=== PATIENT | male | born 1940 | race Caucasian/White ===

== ENCOUNTER 2017-06-27 14:15 | Outpatient (RCR) | payer MEDICARE, SELFPAY ==
[2017-05-29 01:27] VITALS: BP 136/78; PULSE 64; RESP 16; TEMP 36.2
[2017-05-30 13:37] VITALS: BP 132/73; PULSE 76; RESP 18; TEMP 36.6
--- NOTE | 2017-05-30 14:39 | PCM.WC.PN ---
(1) Non-pressure chronic ulcer of right ankle with fat layer exposed Status: Acute Current Visit: Yes Code(s): L97.312 - Non-pressure chronic ulcer of right ankle with fat layer exposed (2) Non-pressure chronic ulcer of left ankle with fat layer exposed Status: Acute Current Visit: Yes Code(s): L97.322 - Non-pressure chronic ulcer of left ankle with fat layer exposed (3) Venous insufficiency (chronic) (peripheral) Status: Chronic Current Visit: Yes Comment: I87.2 (4) Localized edema Status: Acute Current Visit: Yes Code(s): R60.0 - Localized edema Type of Wound Date of Service: 05/30/17 Chief Complaint: Left leg ulcer History of Wound: This 76-year-old male presents [facility] to [facility] for recurrent venous leg ulcerations of the left and right ankles. 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 Patient is also known to have chronic leg edema. He is drinking a protein supplementation drink daily still at this time. He denies fever, chills, nausea, vomiting, leg pain during the day. He had his venous doppler with reflux in the past, but not recently. He denies leg redness or drainage. 05/02--Improved. Vascular testing scheduled for next week. Tolerating 3M 2-layer coban wraps and hydrofera blue well. Pain improved. Denies N/V/F/C. Denies redness, pus, malodor, warmth. 05/09--Improved. Vascular testing done and reviewed. Tolerating 3M 2-layer coban wraps and hydrofera blue well. Pain improved. Denies N/V/F/C. Denies redness, pus, malodor, warmth. 05/16--Improved. Vascular testing done and reviewed. Tolerating 3M 2-layer coban wraps and hydrofera blue well. Pain improved. Denies N/V/F/C. Denies redness, pus, malodor, warmth. 05/30/17--Improved. Tolerating 3M 2-layer coban wraps and hydrofera blue well. Almost no drainge--hydrofera blue is sticking to the ulcers, so we will add adaptic first. Pain improved. Denies N/V/F/C. Denies redness, pus, malodor, warmth. Progress of Wound: Improved. Venous duplex reveals vein incompetence bilaterally--pt referred to vascular surgery. - Physical Exam Vital Signs Temp Pulse Resp BP 97.9 F 76 18 132/73 H 05/30/17 13:37 05/30/17 13:37 05/30/17 13:37 05/30/17 13:37 General: Alert, Oriented x3, Cooperative, No apparent distress Skin: Ulcer/ Wound - R medial and lateral ankle, L medial ankle with no erythema, no malodor, no pus, no calor, no TTP. No clinical signs of acute bacterial infection noted. See nurse's wound assessment. R medial ankle ulcer now 2 smaller ulcers. Wound Measurements and Assessment - Nurse 1 - General Ulcer Measurement Start: 05/30/17 13:37 Freq: Status: Active Protocol: Activity Type Activity Date Activity User E-Sign Co-Sign Detail Recorded Client Recorded Date Recorded By Document 05/30/17 13:37 DL [id number] 05/30/17 13:51 DL 05/30/17 13:37 Wound Center Nurse 1 [Ulcer Assessment Protocol: WC.WD.LOC] #11 R Lat ankle -Current Size (cm) - Length 0.8 -Current Size (cm) - Width 0.8 -Current Size (cm) - Depth 0.2 -Total Square Cm 0.64 -Photo Taken No -Exudate Amt Small (1-33%) -Exudate Type Serosanguineous -Wound Margin Distinct, Outline Attached -Granulation Amt Small (1-33%) -Granulation Quality [place] -Necrosis Amt Small (1-33%) -Necrotic Tissue Type Adherent Slough -Structure Exposed N/A -Texture (Nikia-wound Skin Appearance) No Abnormality -Moisture (Nikia-wound Skin Appearance Dry/Scaly ) -Color (Nikia-wound Skin Appearance) Hemosiderin Staining -Temperature (Nikia-wound Skin No Abnormality Appearance) (Pt Warm) -Ulcer Cleansing Wound Cleanser -Foul Odor after Cleansing No -Anesthetic Used 4% Lidocaine Solution #10 R Med Ankle -Current Size (cm) - Length 3.3 -Current Size (cm) - Width 3.3 -Current Size (cm) - Depth 0.1 -Total Square Cm 10.89 -Photo Taken No -Exudate Amt Small (1-33%) -Exudate Type Serosanguineous -Wound Margin Distinct, Outline Attached -Granulation Amt None Present (0 %) -Necrosis Amt Large (67-100%) -Necrotic Tissue Type Adherent Slough -Structure Exposed N/A -Texture (Nikia-wound Skin Appearance) Scarring -Moisture (Nikia-wound Skin Appearance Dry/Scaly ) -Color (Nikia-wound Skin Appearance) Hemosiderin Staining -Temperature (Nikia-wound Skin No Abnormality Appearance) (Pt Warm) -Ulcer Cleansing Wound Cleanser -Foul Odor after Cleansing No -Anesthetic Used 4% Lidocaine Solution #9 L Med Ankle -Current Size (cm) - Length 7.7 -Current Size (cm) - Width 4 -Current Size (cm) - Depth 0.1 -Total Square Cm 30.8 -Photo Taken No -Exudate Amt Small (1-33%) -Exudate Type Serosanguineous -Wound Margin Distinct, Outline Attached -Granulation Amt Medium (34-66%) -Granulation Quality Red -Necrosis Amt Medium (34-66%) -Necrotic Tissue Type Adherent Slough -Structure Exposed N/A -Texture (Nikia-wound Skin Appearance) Scarring -Moisture (Nikia-wound Skin Appearance Dry/Scaly ) -Color (Nikia-wound Skin Appearance) Hemosiderin Staining -Temperature (Nikia-wound Skin No Abnormality Appearance) (Pt Warm) -Ulcer Cleansing Wound Cleanser -Foul Odor after Cleansing No -Anesthetic Used 4% Lidocaine Solution [Edema Assessment] -Right Calf (cm) 35.2 -Right Ankle (cm) 21 -Left Calf (cm) 33 -Left Ankle (cm) 21.2 WC - Nurse 2 - General Ulcer CM Notes Start: 05/30/17 13:37 Freq: Status: Active Protocol: Activity Type Activity Date Activity User E-Sign Co-Sign Detail Recorded Client Recorded Date Recorded By Document 05/30/17 14:11 MW [id number] 05/30/17 14:20 MW 05/30/17 14:11 Wound Center Nurse 2 [Procedure/Treatment] #12 right anterior ankle -Time 14:19 -Correct Patient Yes -Correct Side, Site, Position Yes -Correct Procedure Yes -Procedure Performed Yes -Type of Procedure Debridement -Clinical Debridement Subcutaneous -Post Debridement Size (cm) - Length 2.0 -Post Debridement Size (cm) - Width 0.6 -Post Debridement Size (cm) - Depth 0.1 -Total Square Cm 1.20 -Wound/Ulcer Outcome Not Healed -Ulcer Cleansing Rinsed/ Irrigated with Saline -Foul Odor after Cleansing No -Bioengineered Tissue No -Cetacaine [place] No -Bleeding Controlled with Pressure -Treatment Response Procedure Tolerated Well #11 R Lat ankle -Time 14:16 -Correct Patient Yes -Correct Side, Site, Position Yes -Correct Procedure Yes -Procedure Performed Yes -Type of Procedure Debridement -Clinical Debridement Subcutaneous -Post Debridement Size (cm) - Length 0.5 -Post Debridement Size (cm) - Width 1.0 -Post Debridement Size (cm) - Depth 0.2 -Total Square Cm 0.50 -Wound/Ulcer Outcome Not Healed -Ulcer Cleansing Rinsed/ Irrigated with Saline -Foul Odor after Cleansing No -Bioengineered Tissue No -Cetacaine [place] No -Bleeding Controlled with Pressure -Treatment Response Procedure Tolerated Well #10 R [facility] Ankle -Time 14:16 -Correct Patient Yes -Correct Side, Site, Position Yes -Correct Procedure Yes -Procedure Performed Yes -Type of Procedure Debridement -Clinical Debridement Subcutaneous -Post Debridement Size (cm) - Length 1.8 -Post Debridement Size (cm) - Width 3.5 -Post Debridement Size (cm) - Depth 0.1 -Total Square Cm 6.30 -Wound/Ulcer Outcome Not Healed -Ulcer Cleansing Rinsed/ Irrigated with Saline -Foul Odor after Cleansing No -Bioengineered Tissue No -Cetacaine [place] No -Bleeding Controlled with Pressure -Treatment Response Procedure Tolerated Well #9 L [facility] Ankle -Time 14:16 -Correct Patient Yes -Correct Side, Site, Position Yes -Correct Procedure Yes -Procedure Performed Yes -Type of Procedure Debridement -Clinical Debridement Subcutaneous -Post Debridement Size (cm) - Length 8.0 -Post Debridement Size (cm) - Width 3.5 -Post Debridement Size (cm) - Depth 0.1 -Total Square Cm 28.00 -Wound/Ulcer Outcome Not Healed -Ulcer Cleansing Rinsed/ Irrigated with Saline -Foul Odor after Cleansing No -Bioengineered Tissue No -Cetacaine [place] No -Bleeding Controlled with Pressure -Treatment Response Procedure Tolerated Well [See Physician Procedure note for Specifics] Pain Scale: 0-10 Numeric [Pain] -Is Patient Pain Free? Yes Debridement Note Post-Debridement Measurements/Treatment WC - Nurse 2 - General Ulcer CM Notes Start: 05/30/17 13:37 Freq: Status: Active Protocol: Activity Type Activity Date Activity User E-Sign Co-Sign Detail Recorded Client Recorded Date Recorded By Document 05/30/17 14:11 MW [id number] 05/30/17 14:20 MW 05/30/17 14:11 Wound Center Nurse 2 #12 right anterior ankle -Time 14:19 -Correct Patient Yes -Correct Side, Site, Position Yes -Correct Procedure Yes -Procedure Performed Yes -Type of Procedure Debridement -Clinical Debridement Subcutaneous -Post Debridement Size (cm) - Length 2.0 -Post Debridement Size (cm) - Width 0.6 -Post Debridement Size (cm) - Depth 0.1 -Total Square Cm 1.20 -Wound/Ulcer Outcome Not Healed -Ulcer Cleansing Rinsed/ Irrigated with Saline -Foul Odor after Cleansing No -Bioengineered Tissue No -Cetacaine [place] No -Bleeding Controlled with Pressure -Treatment Response Procedure Tolerated Well #11 R Lat ankle -Time 14:16 -Correct Patient Yes -Correct Side, Site, Position Yes -Correct Procedure Yes -Procedure Performed Yes -Type of Procedure Debridement -Clinical Debridement Subcutaneous -Post Debridement Size (cm) - Length 0.5 -Post Debridement Size (cm) - Width 1.0 -Post Debridement Size (cm) - Depth 0.2 -Total Square Cm 0.50 -Wound/Ulcer Outcome Not Healed -Ulcer Cleansing Rinsed/ Irrigated with Saline -Foul Odor after Cleansing No -Bioengineered Tissue No -Cetacaine [place] No -Bleeding Controlled with Pressure -Treatment Response Procedure Tolerated Well #10 R Med Ankle -Time 14:16 -Correct Patient Yes -Correct Side, Site, Position Yes -Correct Procedure Yes -Procedure Performed Yes -Type of Procedure Debridement -Clinical Debridement Subcutaneous -Post Debridement Size (cm) - Length 1.8 -Post Debridement Size (cm) - Width 3.5 -Post Debridement Size (cm) - Depth 0.1 -Total Square Cm 6.30 -Wound/Ulcer Outcome Not Healed -Ulcer Cleansing Rinsed/ Irrigated with Saline -Foul Odor after Cleansing No -Bioengineered Tissue No -Cetacaine [place] No -Bleeding Controlled with Pressure -Treatment Response Procedure Tolerated Well #9 L Med Ankle -Time 14:16 -Correct Patient Yes -Correct Side, Site, Position Yes -Correct Procedure Yes -Procedure Performed Yes -Type of Procedure Debridement -Clinical Debridement Subcutaneous -Post Debridement Size (cm) - Length 8.0 -Post Debridement Size (cm) - Width 3.5 -Post Debridement Size (cm) - Depth 0.1 -Total Square Cm 28.00 -Wound/Ulcer Outcome Not Healed -Ulcer Cleansing Rinsed/ Irrigated with Saline -Foul Odor after Cleansing No -Bioengineered Tissue No -Cetacaine [place] No -Bleeding Controlled with Pressure -Treatment Response Procedure Tolerated Well Pain Scale: 0-10 Numeric Is Patient Pain Free? Yes Wound debrided: R lateral ankle Laterality: Right Wound Grade/Stage: Full thickness VLU Type of Debridement: Excisional debridement Anesthesia Used: 4% Lidocaine Solution Depth: Down to and including healthy tissue, in the subcutaneous layer Percentage of wound debrided: 100 Instrument Used: 3mm curette Tissue Removed: fibrous slough Severity: Fat Layer Exposed Amount of bleeding with debridement: Mild Bleeding Controlled with: Pressure, Compression and gauze Patient tolerated procedure well - Additional Wound Wound debrided: R medial ankle x 2 Laterality: Right Wound Grade/Stage: full thickness VLU Type of Debridement: Excisional debridement Anesthesia Used: 4% Lidocaine Solution Depth: Down to and including healthy tissue, in the subcutaneous layer Percentage of wound debrided: 100 Instrument Used: 3mm curette Tissue Removed: fibrous slough Severity: Fat Layer Exposed Amount of bleeding with debridement: Mild Bleeding Controlled with: Pressure, Compression and gauze Patient tolerated procedure: Patient tolerated procedure well - Additional Wound Wound debrided: L medial ankle Laterality: Left Wound Grade/Stage: Full thickness VLU Type of Debridement: Excisional debridement Anesthesia Used: 4% Lidocaine Solution Depth: Down to and including healthy tissue, in the subcutaneous layer Percentage of wound debrided: 100 Instrument Used: 3mm curette Tissue Removed: fibrous slough Severity: Fat Layer Exposed Amount of bleeding with debridement: Mild Bleeding Controlled with: Pressure, Compression and gauze Patient tolerated procedure: Patient tolerated procedure well Assessment/Plan Active Problems Venous insufficiency (chronic) (peripheral) (Chronic) I87.2 Non-pressure chronic ulcer of right ankle with fat layer exposed (Acute) Non-pressure chronic ulcer of left ankle with fat layer exposed (Acute) Localized edema (Acute) Assessment: See diagnoses Plan: SQ/excisional debridment b/l ankle ulcers as above >30 sq cm. Screening LIZ in clinic next week (not done again today). Referral to vascular surgery based on venous duplex results. Pt does well with 3M 2-layer coban wraps, re-apply. Cont hydrofera blue, add adaptic to wound bed prior to application of hydrofera blue. Monitor for redness, pus, malodor, warmth, pain, swelling as well as for N/V/F/C and go to the ED with these. Return in 1 week with me, call with questions.
--- NOTE | 2017-05-30 14:44 | PN.PCM_ITS ---
(1) Non-pressure chronic ulcer of right ankle with fat layer exposed Status: Acute Current Visit: Yes Code(s): L97.312 - Non-pressure chronic ulcer of right ankle with fat layer exposed (2) Non-pressure chronic ulcer of left ankle with fat layer exposed Status: Acute Current Visit: Yes Code(s): L97.322 - Non-pressure chronic ulcer of left ankle with fat layer exposed (3) Venous insufficiency (chronic) (peripheral) Status: Chronic Current Visit: Yes Comment: I87.2 (4) Localized edema Status: Acute Current Visit: Yes Code(s): R60.0 - Localized edema Type of Wound Date of Service: 05/30/17 Chief Complaint: Left leg ulcer History of Wound: This 76-year-old male presents [facility] for recurrent venous leg ulcerations of the left and right ankles. 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 Patient is also known to have chronic leg edema. He is drinking a protein supplementation drink daily still at this time. He denies fever, chills, nausea, vomiting, leg pain during the day. He had his venous doppler with reflux in the past, but not recently. He denies leg redness or drainage. 05/02--Improved. Vascular testing scheduled for next week. Tolerating 3M 2-layer coban wraps and hydrofera blue well. Pain improved. Denies N/V/F/C. Denies redness, pus, malodor, warmth. 05/09--Improved. Vascular testing done and reviewed. Tolerating 3M 2-layer coban wraps and hydrofera blue well. Pain improved. Denies N/V/F/C. Denies redness, pus, malodor, warmth. 05/16--Improved. Vascular testing done and reviewed. Tolerating 3M 2-layer coban wraps and hydrofera blue well. Pain improved. Denies N/V/F/C. Denies redness, pus, malodor, warmth. 05/30/17--Improved. Tolerating 3M 2-layer coban wraps and hydrofera blue well. Almost no drainge-- hydrofera blue is sticking to the ulcers, so we will add adaptic first. Pain improved. Denies N/V/F/C. Denies redness, pus, malodor, warmth. Progress of Wound: Improved. Venous duplex reveals vein incompetence bilaterally--pt referred to vascular surgery. - Physical Exam Vital Signs Temp Pulse Resp BP 97.9 F 76 18 132/73 H 05/30/17 13:37 05/30/17 13:37 05/30/17 13:37 05/30/17 13:37 General: Alert, Oriented x3, Cooperative, No apparent distress Skin: Ulcer/ Wound - R medial and lateral ankle, L medial ankle with no erythema , no malodor, no pus, no calor, no TTP. No clinical signs of acute bacterial infection noted. See nurse's wound assessment. R medial ankle ulcer now 2 smaller ulcers. Wound Measurements and Assessment - Nurse 1 - General Ulcer Measurement Start: 05/30/17 13:37 Freq: Status: Active Protocol: Activity Type Activity Date Activity User E-Sign Co-Sign Detail Recorded Client Recorded Date Recorded By Document 05/30/17 13:37 DL [id number] 05/30/17 13:51 DL 05/30/17 13:37 Wound Center Nurse 1 [Ulcer Assessment Protocol: WC.WD.LOC] #11 R Lat ankle -Current Size (cm) - Length 0.8 -Current Size (cm) - Width 0.8 -Current Size (cm) - Depth 0.2 -Total Square Cm 0.64 -Photo Taken No -Exudate Amt Small (1-33%) -Exudate Type Serosanguineous -Wound Margin Distinct, Outline Attached -Granulation Amt Small (1-33%) -Granulation Quality [place] -Necrosis Amt Small (1-33%) -Necrotic Tissue Type Adherent Slough -Structure Exposed N/A -Texture (Nikia-wound Skin Appearance) No Abnormality -Moisture (Nikia-wound Skin Appearance Dry/Scaly ) -Color (Nikia-wound Skin Appearance) Hemosiderin Staining -Temperature (Nikia-wound Skin No Abnormality Appearance) (Pt Warm) -Ulcer Cleansing Wound Cleanser -Foul Odor after Cleansing No -Anesthetic Used 4% Lidocaine Solution #10 R Med Ankle -Current Size (cm) - Length 3.3 -Current Size (cm) - Width 3.3 -Current Size (cm) - Depth 0.1 -Total Square Cm 10.89 -Photo Taken No -Exudate Amt Small (1-33%) -Exudate Type Serosanguineous -Wound Margin Distinct, Outline Attached -Granulation Amt None Present (0 %) -Necrosis Amt Large (67-100%) -Necrotic Tissue Type Adherent Slough -Structure Exposed N/A -Texture (Nikia-wound Skin Appearance) Scarring -Moisture (Nikia-wound Skin Appearance Dry/Scaly ) -Color (Nikia-wound Skin Appearance) Hemosiderin Staining -Temperature (Nikia-wound Skin No Abnormality Appearance) (Pt Warm) -Ulcer Cleansing Wound Cleanser -Foul Odor after Cleansing No -Anesthetic Used 4% Lidocaine Solution #9 L Med Ankle -Current Size (cm) - Length 7.7 -Current Size (cm) - Width 4 -Current Size (cm) - Depth 0.1 -Total Square Cm 30.8 -Photo Taken No -Exudate Amt Small (1-33%) -Exudate Type Serosanguineous -Wound Margin Distinct, Outline Attached -Granulation Amt Medium (34-66%) -Granulation Quality Red -Necrosis Amt Medium (34-66%) -Necrotic Tissue Type Adherent Slough -Structure Exposed N/A -Texture (Nikia-wound Skin Appearance) Scarring -Moisture (Nikia-wound Skin Appearance Dry/Scaly ) -Color (Nikia-wound Skin Appearance) Hemosiderin Staining -Temperature (Nikia-wound Skin No Abnormality Appearance) (Pt Warm) -Ulcer Cleansing Wound Cleanser -Foul Odor after Cleansing No -Anesthetic Used 4% Lidocaine Solution [Edema Assessment] -Right Calf (cm) 35.2 -Right Ankle (cm) 21 -Left Calf (cm) 33 -Left Ankle (cm) 21.2 WC - Nurse 2 - General Ulcer CM Notes Start: 05/30/17 13:37 Freq: Status: Active Protocol: Activity Type Activity Date Activity User E-Sign Co-Sign Detail Recorded Client Recorded Date Recorded By Document 05/30/17 14:11 MW [id number] 05/30/17 14:20 MW 05/30/17 14:11 Wound Center Nurse 2 [Procedure/Treatment] #12 right anterior ankle -Time 14:19 -Correct Patient Yes -Correct Side, Site, Position Yes -Correct Procedure Yes -Procedure Performed Yes -Type of Procedure Debridement -Clinical Debridement Subcutaneous -Post Debridement Size (cm) - Length 2.0 -Post Debridement Size (cm) - Width 0.6 -Post Debridement Size (cm) - Depth 0.1 -Total Square Cm 1.20 -Wound/Ulcer Outcome Not Healed -Ulcer Cleansing Rinsed/ Irrigated with Saline -Foul Odor after Cleansing No -Bioengineered Tissue No -Cetacaine [place] No -Bleeding Controlled with Pressure -Treatment Response Procedure Tolerated Well #11 R Lat ankle -Time 14:16 -Correct Patient Yes -Correct Side, Site, Position Yes -Correct Procedure Yes -Procedure Performed Yes -Type of Procedure Debridement -Clinical Debridement Subcutaneous -Post Debridement Size (cm) - Length 0.5 -Post Debridement Size (cm) - Width 1.0 -Post Debridement Size (cm) - Depth 0.2 -Total Square Cm 0.50 -Wound/Ulcer Outcome Not Healed -Ulcer Cleansing Rinsed/ Irrigated with Saline -Foul Odor after Cleansing No -Bioengineered Tissue No -Cetacaine [place] No -Bleeding Controlled with Pressure -Treatment Response Procedure Tolerated Well #[address] [facility] Ankle -Time 14:16 -Correct Patient Yes -Correct Side, Site, Position Yes -Correct Procedure Yes -Procedure Performed Yes -Type of Procedure Debridement -Clinical Debridement Subcutaneous -Post Debridement Size (cm) - Length 1.8 -Post Debridement Size (cm) - Width 3.5 -Post Debridement Size (cm) - Depth 0.1 -Total Square Cm 6.30 -Wound/Ulcer Outcome Not Healed -Ulcer Cleansing Rinsed/ Irrigated with Saline -Foul Odor after Cleansing No -Bioengineered Tissue No -Cetacaine We[place] No -Bleeding Controlled with Pressure -Treatment Response Procedure Tolerated Well #[address] [facility] Ankle -Time 14:16 -Correct Patient Yes -Correct Side, Site, Position Yes -Correct Procedure Yes -Procedure Performed Yes -Type of Procedure Debridement -Clinical Debridement Subcutaneous -Post Debridement Size (cm) - Length 8.0 -Post Debridement Size (cm) - Width 3.5 -Post Debridement Size (cm) - Depth 0.1 -Total Square Cm 28.00 -Wound/Ulcer Outcome Not Healed -Ulcer Cleansing Rinsed/ Irrigated with Saline -Foul Odor after Cleansing No -Bioengineered Tissue No -Cetacaine We[place] No -Bleeding Controlled with Pressure -Treatment Response Procedure Tolerated Well [See Physician Procedure note for Specifics] Pain Scale: 0-10 Numeric [Pain] -Is Patient Pain Free? Yes Debridement Note Post-Debridement Measurements/Treatment WC - Nurse 2 - General Ulcer CM Notes Start: 05/30/17 13:37 Freq: Status: Active Protocol: Activity Type Activity Date Activity User E-Sign Co-Sign Detail Recorded Client Recorded Date Recorded By Document 05/30/17 14:11 MW [id number] 05/30/17 14:20 MW 05/30/17 14:11 Wound Center Nurse 2 #12 right anterior ankle -Time 14:19 -Correct Patient Yes -Correct Side, Site, Position Yes -Correct Procedure Yes -Procedure Performed Yes -Type of Procedure Debridement -Clinical Debridement Subcutaneous -Post Debridement Size (cm) - Length 2.0 -Post Debridement Size (cm) - Width 0.6 -Post Debridement Size (cm) - Depth 0.1 -Total Square Cm 1.20 -Wound/Ulcer Outcome Not Healed -Ulcer Cleansing Rinsed/ Irrigated with Saline -Foul Odor after Cleansing No -Bioengineered Tissue No -Cetacaine We[place] No -Bleeding Controlled with Pressure -Treatment Response Procedure Tolerated Well #11 R Lat ankle -Time 14:16 -Correct Patient Yes -Correct Side, Site, Position Yes -Correct Procedure Yes -Procedure Performed Yes -Type of Procedure Debridement -Clinical Debridement Subcutaneous -Post Debridement Size (cm) - Length 0.5 -Post Debridement Size (cm) - Width 1.0 -Post Debridement Size (cm) - Depth 0.2 -Total Square Cm 0.50 -Wound/Ulcer Outcome Not Healed -Ulcer Cleansing Rinsed/ Irrigated with Saline -Foul Odor after Cleansing No -Bioengineered Tissue No -Cetacaine Weott No -Bleeding Controlled with Pressure -Treatment Response Procedure Tolerated Well #10 R Med Ankle -Time 14:16 -Correct Patient Yes -Correct Side, Site, Position Yes -Correct Procedure Yes -Procedure Performed Yes -Type of Procedure Debridement -Clinical Debridement Subcutaneous -Post Debridement Size (cm) - Length 1.8 -Post Debridement Size (cm) - Width 3.5 -Post Debridement Size (cm) - Depth 0.1 -Total Square Cm 6.30 -Wound/Ulcer Outcome Not Healed -Ulcer Cleansing Rinsed/ Irrigated with Saline -Foul Odor after Cleansing No -Bioengineered Tissue No -Cetacaine Weott No -Bleeding Controlled with Pressure -Treatment Response Procedure Tolerated Well #9 L Med Ankle -Time 14:16 -Correct Patient Yes -Correct Side, Site, Position Yes -Correct Procedure Yes -Procedure Performed Yes -Type of Procedure Debridement -Clinical Debridement Subcutaneous -Post Debridement Size (cm) - Length 8.0 -Post Debridement Size (cm) - Width 3.5 -Post Debridement Size (cm) - Depth 0.1 -Total Square Cm 28.00 -Wound/Ulcer Outcome Not Healed -Ulcer Cleansing Rinsed/ Irrigated with Saline -Foul Odor after Cleansing No -Bioengineered Tissue No -Cetacaine Weott No -Bleeding Controlled with Pressure -Treatment Response Procedure Tolerated Well Pain Scale: 0-10 Numeric Is Patient Pain Free? Yes Wound debrided: R lateral ankle Laterality: Right Wound Grade/Stage: Full thickness VLU Type of Debridement: Excisional debridement Anesthesia Used: 4% Lidocaine Solution Depth: Down to and including healthy tissue, in the subcutaneous layer Percentage of wound debrided: 100 Instrument Used: 3mm curette Tissue Removed: fibrous slough Severity: Fat Layer Exposed Amount of bleeding with debridement: Mild Bleeding Controlled with: Pressure, Compression and gauze Patient tolerated procedure well - Additional Wound Wound debrided: R medial ankle x 2 Laterality: Right Wound Grade/Stage: full thickness VLU Type of Debridement: Excisional debridement Anesthesia Used: 4% Lidocaine Solution Depth: Down to and including healthy tissue, in the subcutaneous layer Percentage of wound debrided: 100 Instrument Used: 3mm curette Tissue Removed: fibrous slough Severity: Fat Layer Exposed Amount of bleeding with debridement: Mild Bleeding Controlled with: Pressure, Compression and gauze Patient tolerated procedure: Patient tolerated procedure well - Additional Wound Wound debrided: L medial ankle Laterality: Left Wound Grade/Stage: Full thickness VLU Type of Debridement: Excisional debridement Anesthesia Used: 4% Lidocaine Solution Depth: Down to and including healthy tissue, in the subcutaneous layer Percentage of wound debrided: 100 Instrument Used: 3mm curette Tissue Removed: fibrous slough Severity: Fat Layer Exposed Amount of bleeding with debridement: Mild Bleeding Controlled with: Pressure, Compression and gauze Patient tolerated procedure: Patient tolerated procedure well Assessment/Plan Active Problems Venous insufficiency (chronic) (peripheral) (Chronic) I87.2 Non-pressure chronic ulcer of right ankle with fat layer exposed (Acute) Non-pressure chronic ulcer of left ankle with fat layer exposed (Acute) Localized edema (Acute) Assessment: See diagnoses Plan: SQ/excisional debridment b/l ankle ulcers as above >30 sq cm. Screening LIZ in clinic next week (not done again today). Referral to vascular surgery based on venous duplex results. Pt does well with 3M 2-layer coban wraps, re- apply. Cont hydrofera blue, add adaptic to wound bed prior to application of hydrofera blue. Monitor for redness, pus, malodor, warmth, pain, swelling as well as for N/V/F/C and go to the ED with these. Return in 1 week with me, call with questions.
[2017-06-06 14:05] VITALS: BP 108/64; PULSE 64; RESP 20; TEMP 36.4
--- NOTE | 2017-06-06 14:42 | WC ---
LIZ Screen Performed: Right Arm: 136 mmHg Left Arm: 124 mmHg Dorsalis Pedis: 130 mmHg (Bi-Phasic Pulse) Dorsalis Pedis: NC (Bi-Phasic (weak) Pulse) Posterior Tibialis: 170 mmHg (Bi-Phasic (weak) Pulse) Posterior tibialis: NC (Monophasic Pulse) LIZ: 1.24 LIZ: NC Patient was placed in the supine position for 10-15 minutes. Tolerated compression w/o mention of pain. Dr. Kearns and Bliss Press Operator informed of findings.
--- NOTE | 2017-06-06 14:45 | PCM.WC.PN ---
(1) Non-pressure chronic ulcer of right ankle with fat layer exposed Status: Acute Current Visit: Yes Code(s): L97.312 - Non-pressure chronic ulcer of right ankle with fat layer exposed (2) Non-pressure chronic ulcer of left ankle with fat layer exposed Status: Acute Current Visit: Yes Code(s): L97.322 - Non-pressure chronic ulcer of left ankle with fat layer exposed (3) Venous insufficiency (chronic) (peripheral) Status: Chronic Current Visit: Yes Comment: I87.2 (4) Localized edema Status: Acute Current Visit: Yes Code(s): R60.0 - Localized edema Type of Wound Date of Service: 06/06/17 Chief Complaint: Left leg ulcer History of Wound: This 76-year-old male presents back to the [facility] for recurrent venous leg ulcerations of the left and right ankles. 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 Patient is also known to have chronic leg edema. He is drinking a protein supplementation drink daily still at this time. He denies fever, chills, nausea, vomiting, leg pain during the day. He had his venous doppler with reflux in the past, but not recently. He denies leg redness or drainage. 05/02--Improved. Vascular testing scheduled for next week. Tolerating 3M 2-layer coban wraps and hydrofera blue well. Pain improved. Denies N/V/F/C. Denies redness, pus, malodor, warmth. 05/09--Improved. Vascular testing done and reviewed. Tolerating 3M 2-layer coban wraps and hydrofera blue well. Pain improved. Denies N/V/F/C. Denies redness, pus, malodor, warmth. 05/16--Improved. Vascular testing done and reviewed. Tolerating 3M 2-layer coban wraps and hydrofera blue well. Pain improved. Denies N/V/F/C. Denies redness, pus, malodor, warmth. 05/30/17--Improved. Tolerating 3M 2-layer coban wraps and hydrofera blue well. Almost no drainge--hydrofera blue is sticking to the ulcers, so we will add adaptic first. Pain improved. Denies N/V/F/C. Denies redness, pus, malodor, warmth. 06/06--Improved. Tolerating 3M 2-layer coban wraps and, adaptic, hydrofera blue well. Almost no drainage. Pain improved. Denies N/V/F/C. Denies redness, pus, malodor, warmth. Progress of Wound: Improved. Venous duplex reveals vein incompetence bilaterally--pt referred to vascular surgery. - Physical Exam Vital Signs Temp Pulse Resp BP 97.6 F L 64 20 H 108/64 06/06/17 14:05 06/06/17 14:05 06/06/17 14:05 06/06/17 14:05 General: Alert, Oriented x3, Cooperative, No apparent distress Skin: Ulcer/ Wound - R and L ankles with no erythema, no malodor, no pus, no calor, no TTP. No clinical signs of acute bacterial infection noted. See nurse's wound assessment. Wound Measurements and Assessment - Nurse 1 - General Ulcer Measurement Start: 05/30/17 13:37 Freq: Status: Active Protocol: Activity Type Activity Date Activity User E-Sign Co-Sign Detail Recorded Client Recorded Date Recorded By Document 06/06/17 14:05 DL [id number] 06/06/17 14:21 DL 06/06/17 14:05 Wound Center Nurse 1 [Ulcer Assessment Protocol: WC.WD.LOC] #12 right anterior ankle -Current Size (cm) - Length 0.2 -Current Size (cm) - Width 0.2 -Current Size (cm) - Depth 0.1 -Total Square Cm 0.04 -Photo Taken No -Exudate Amt None Present (0 %) -Wound Margin Flat & Intact -Granulation Amt Large (67-100%) -Granulation Quality Pale -Necrosis Amt Small (1-33%) -Necrotic Tissue Type Adherent Slough -Structure Exposed N/A -Texture (Nikia-wound Skin Appearance) Scarring -Moisture (Nikia-wound Skin Appearance Dry/Scaly ) -Color (Nikia-wound Skin Appearance) Hemosiderin Staining -Temperature (Nikia-wound Skin No Abnormality Appearance) (Pt Warm) -Ulcer Cleansing Wound Cleanser -Foul Odor after Cleansing No -Anesthetic Used 4% Lidocaine Solution #11 R Lat ankle -Current Size (cm) - Length 0.6 -Current Size (cm) - Width 0.7 -Current Size (cm) - Depth 0.2 -Total Square Cm 0.42 -Photo Taken No -Exudate Amt None Present (0 %) -Wound Margin Thickened -Granulation Amt None Present (0 %) -Necrosis Amt Large (67-100%) -Necrotic Tissue Type Adherent Slough -Texture (Nikia-wound Skin Appearance) Scarring -Moisture (Nikia-wound Skin Appearance Dry/Scaly ) -Color (Nikia-wound Skin Appearance) Hemosiderin Staining -Temperature (Nikia-wound Skin No Abnormality Appearance) (Pt Warm) -Ulcer Cleansing Wound Cleanser -Foul Odor after Cleansing No -Anesthetic Used 4% Lidocaine Solution #10 R Med Ankle -Current Size (cm) - Length 2.2 -Current Size (cm) - Width 3.9 -Current Size (cm) - Depth 0.1 -Total Square Cm 8.58 -Photo Taken No -Exudate Amt Small (1-33%) -Exudate Type Serosanguineous -Wound Margin Thickened -Granulation Amt None Present (0 %) -Necrosis Amt Large (67-100%) -Necrotic Tissue Type Adherent Slough -Structure Exposed N/A -Texture (Nikia-wound Skin Appearance) Scarring -Moisture (Nikia-wound Skin Appearance Dry/Scaly ) -Color (Nikia-wound Skin Appearance) Hemosiderin Staining -Temperature (Nikia-wound Skin No Abnormality Appearance) (Pt Warm) -Tenderness on Palpation (Nikia-wound No Skin Appearance) -Ulcer Cleansing Wound Cleanser -Foul Odor after Cleansing No -Anesthetic Used 4% Lidocaine Solution #9 L Med Ankle -Current Size (cm) - Length 8 -Current Size (cm) - Width 2.9 -Current Size (cm) - Depth 0.1 -Total Square Cm 23.2 -Photo Taken No -Exudate Amt Medium (34-66%) -Exudate Type Serosanguineous -Wound Margin Thickened -Granulation Amt Medium (34-66%) -Granulation Quality [place] -Necrosis Amt Medium (34-66%) -Necrotic Tissue Type Adherent Slough -Structure Exposed N/A -Texture (Nikia-wound Skin Appearance) Scarring -Moisture (Nikia-wound Skin Appearance Dry/Scaly ) -Color (Nikia-wound Skin Appearance) Hemosiderin Staining -Temperature (Nikia-wound Skin No Abnormality Appearance) (Pt Warm) -Ulcer Cleansing Wound Cleanser -Foul Odor after Cleansing No [Edema Assessment] -Right Calf (cm) 36 -Right Ankle (cm) 21 -Left Ankle (cm) 34.2 -Left Foot (cm) 21 WC - Nurse 2 - General Ulcer CM Notes Start: 05/30/17 13:37 Freq: Status: Active Protocol: Activity Type Activity Date Activity User E-Sign Co-Sign Detail Recorded Client Recorded Date Recorded By Document 06/06/17 14:37 MW [id number] 06/06/17 14:41 MW 06/06/17 14:37 Wound Center Nurse 2 [Procedure/Treatment] #12 right anterior ankle -Time 14:37 -Correct Patient Yes -Correct Side, Site, Position Yes -Correct Procedure Yes -Procedure Performed No -Post Debridement Size (cm) - Length 0 -Post Debridement Size (cm) - Width 0 -Post Debridement Size (cm) - Depth 0 -Total Square Cm 0 -Wound/Ulcer Outcome Healed- Epithelialized -Ulcer Cleansing Rinsed/ Irrigated with Saline -Foul Odor after Cleansing No -Bioengineered Tissue No -Cetacaine [place] No -Bleeding Controlled with Pressure -Treatment Response Procedure Tolerated Well #11 R Lat ankle -Time 14:37 -Correct Patient Yes -Correct Side, Site, Position Yes -Correct Procedure Yes -Procedure Performed Yes -Type of Procedure Debridement -Clinical Debridement Subcutaneous -Post Debridement Size (cm) - Length 0.6 -Post Debridement Size (cm) - Width 0.6 -Post Debridement Size (cm) - Depth 0.2 -Total Square Cm 0.36 -Wound/Ulcer Outcome Not Healed -Ulcer Cleansing Rinsed/ Irrigated with Saline -Foul Odor after Cleansing No -Bioengineered Tissue No -Cetacaine [place] No -Bleeding Controlled with Pressure -Treatment Response Procedure Tolerated Well #10 R Med Ankle -Time 14:37 -Correct Patient Yes -Correct Side, Site, Position Yes -Correct Procedure Yes -Procedure Performed Yes -Type of Procedure Debridement -Clinical Debridement Subcutaneous -Post Debridement Size (cm) - Length 0.8 -Post Debridement Size (cm) - Width 0.5 -Post Debridement Size (cm) - Depth 0.2 -Total Square Cm 0.40 -Wound/Ulcer Outcome Not Healed -Ulcer Cleansing Rinsed/ Irrigated with Saline -Foul Odor after Cleansing No -Bioengineered Tissue No -Cetacaine [place] No -Bleeding Controlled with Pressure -Treatment Response Procedure Tolerated Well #9 L Med Ankle -Time 14:38 -Correct Patient Yes -Correct Side, Site, Position Yes -Correct Procedure Yes -Procedure Performed Yes -Type of Procedure Debridement -Clinical Debridement Subcutaneous -Post Debridement Size (cm) - Length 8.5 -Post Debridement Size (cm) - Width 2.1 -Post Debridement Size (cm) - Depth 0.1 -Total Square Cm 17.85 -Wound/Ulcer Outcome Not Healed -Ulcer Cleansing Rinsed/ Irrigated with Saline -Foul Odor after Cleansing No -Bioengineered Tissue No -Cetacaine [place] No -Bleeding Controlled with Pressure -Treatment Response Procedure Tolerated Well [See Physician Procedure note for Specifics] Pain Scale: 0-10 Numeric [Pain] -Is Patient Pain Free? Yes Debridement Note Post-Debridement Measurements/Treatment WC - Nurse 2 - General Ulcer CM Notes Start: 05/30/17 13:37 Freq: Status: Active Protocol: Activity Type Activity Date Activity User E-Sign Co-Sign Detail Recorded Client Recorded Date Recorded By Document 05/30/17 14:11 MW [id number] 05/30/17 14:20 MW Document 06/06/17 14:37 MW [id number] 06/06/17 14:41 MW 05/30/17 06/06/17 14:11 14:37 Wound Center Nurse 2 #12 right anterior ankle -Time 14:19 14:37 -Correct Patient Yes Yes -Correct Side, Site, Position Yes Yes -Correct Procedure Yes Yes -Procedure Performed Yes No -Type of Procedure Debridement -Clinical Debridement Subcutaneous -Post Debridement Size (cm) - Length 2.0 0 -Post Debridement Size (cm) - Width 0.6 0 -Post Debridement Size (cm) - Depth 0.1 0 -Total Square Cm 1.20 0 -Wound/Ulcer Outcome Not Healed Healed- Epithelialized -Ulcer Cleansing Rinsed/ Rinsed/ Irrigated with Irrigated with Saline Saline -Foul Odor after Cleansing No No -Bioengineered Tissue No No -Cetacaine [place] No No -Bleeding Controlled with Pressure Pressure -Treatment Response Procedure Procedure Tolerated Well Tolerated Well #11 R Lat ankle -Time 14:16 14:37 -Correct Patient Yes Yes -Correct Side, Site, Position Yes Yes -Correct Procedure Yes Yes -Procedure Performed Yes Yes -Type of Procedure Debridement Debridement -Clinical Debridement Subcutaneous Subcutaneous -Post Debridement Size (cm) - Length 0.5 0.6 -Post Debridement Size (cm) - Width 1.0 0.6 -Post Debridement Size (cm) - Depth 0.2 0.2 -Total Square Cm 0.50 0.36 -Wound/Ulcer Outcome Not Healed Not Healed -Ulcer Cleansing Rinsed/ Rinsed/ Irrigated with Irrigated with Saline Saline -Foul Odor after Cleansing No No -Bioengineered Tissue No No -Cetacaine [place] No No -Bleeding Controlled with Pressure Pressure -Treatment Response Procedure Procedure Tolerated Well Tolerated Well #10 R Med Ankle -Time 14:16 14:37 -Correct Patient Yes Yes -Correct Side, Site, Position Yes Yes -Correct Procedure Yes Yes -Procedure Performed Yes Yes -Type of Procedure Debridement Debridement -Clinical Debridement Subcutaneous Subcutaneous -Post Debridement Size (cm) - Length 1.8 0.8 -Post Debridement Size (cm) - Width 3.5 0.5 -Post Debridement Size (cm) - Depth 0.1 0.2 -Total Square Cm 6.30 0.40 -Wound/Ulcer Outcome Not Healed Not Healed -Ulcer Cleansing Rinsed/ Rinsed/ Irrigated with Irrigated with Saline Saline -Foul Odor after Cleansing No No -Bioengineered Tissue No No -Cetacaine [place] No No -Bleeding Controlled with Pressure Pressure -Treatment Response Procedure Procedure Tolerated Well Tolerated Well #9 L Med Ankle -Time 14:16 14:38 -Correct Patient Yes Yes -Correct Side, Site, Position Yes Yes -Correct Procedure Yes Yes -Procedure Performed Yes Yes -Type of Procedure Debridement Debridement -Clinical Debridement Subcutaneous Subcutaneous -Post Debridement Size (cm) - Length 8.0 8.5 -Post Debridement Size (cm) - Width 3.5 2.1 -Post Debridement Size (cm) - Depth 0.1 0.1 -Total Square Cm 28.00 17.85 -Wound/Ulcer Outcome Not Healed Not Healed -Ulcer Cleansing Rinsed/ Rinsed/ Irrigated with Irrigated with Saline Saline -Foul Odor after Cleansing No No -Bioengineered Tissue No No -Cetacaine [place] No No -Bleeding Controlled with Pressure Pressure -Treatment Response Procedure Procedure Tolerated Well Tolerated Well Pain Scale: 0-10 Numeric Is Patient Pain Free? Yes Yes Wound debrided: R lateral ankle Laterality: Right Wound Grade/Stage: full thickness VLU Type of Debridement: Excisional debridement Anesthesia Used: 4% Lidocaine Solution Depth: Down to and including healthy tissue, in the subcutaneous layer Percentage of wound debrided: 100 Instrument Used: 5mm curette Tissue Removed: fibrous slough Severity: Fat Layer Exposed Amount of bleeding with debridement: Mild Bleeding Controlled with: Pressure, Compression and gauze Patient tolerated procedure well Assessment/Plan Active Problems Venous insufficiency (chronic) (peripheral) (Chronic) I87.2 Non-pressure chronic ulcer of right ankle with fat layer exposed (Acute) Non-pressure chronic ulcer of left ankle with fat layer exposed (Acute) Localized edema (Acute) Assessment: See diagnoses Plan: SQ/excisional debridment b/l ankle ulcers as above >30 sq cm. Screening LIZ in clinic next done, non-compressible on the L, normal LIZ on the L. Referral to vascular surgery based on venous duplex results. Pt does well with 3M 2-layer coban wraps, re-apply. Cont hydrofera blue, cont adaptic to wound bed prior to application of hydrofera blue. Monitor for redness, pus, malodor, warmth, pain, swelling as well as for N/V/F/C and go to the ED with these. Return in 1 week with me, call with questions.
--- NOTE | 2017-06-06 14:50 | PN.PCM_ITS ---
(1) Non-pressure chronic ulcer of right ankle with fat layer exposed Status: Acute Current Visit: Yes Code(s): L97.312 - Non-pressure chronic ulcer of right ankle with fat layer exposed (2) Non-pressure chronic ulcer of left ankle with fat layer exposed Status: Acute Current Visit: Yes Code(s): L97.322 - Non-pressure chronic ulcer of left ankle with fat layer exposed (3) Venous insufficiency (chronic) (peripheral) Status: Chronic Current Visit: Yes Comment: I87.2 (4) Localized edema Status: Acute Current Visit: Yes Code(s): R60.0 - Localized edema Type of Wound Date of Service: 06/06/17 Chief Complaint: Left leg ulcer History of Wound: This 76-year-old male presents back to the [facility] for recurrent venous leg ulcerations of the left and right ankles. 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 Patient is also known to have chronic leg edema. He is drinking a protein supplementation drink daily still at this time. He denies fever, chills, nausea, vomiting, leg pain during the day. He had his venous doppler with reflux in the past, but not recently. He denies leg redness or drainage. 05/02--Improved. Vascular testing scheduled for next week. Tolerating 3M 2-layer coban wraps and hydrofera blue well. Pain improved. Denies N/V/F/C. Denies redness, pus, malodor, warmth. 05/09--Improved. Vascular testing done and reviewed. Tolerating 3M 2-layer coban wraps and hydrofera blue well. Pain improved. Denies N/V/F/C. Denies redness, pus, malodor, warmth. 05/16--Improved. Vascular testing done and reviewed. Tolerating 3M 2-layer coban wraps and hydrofera blue well. Pain improved. Denies N/V/F/C. Denies redness, pus, malodor, warmth. 05/30/17--Improved. Tolerating 3M 2-layer coban wraps and hydrofera blue well. Almost no drainge-- hydrofera blue is sticking to the ulcers, so we will add adaptic first. Pain improved. Denies N/V/F/C. Denies redness, pus, malodor, warmth. 06/06-- Improved. Tolerating 3M 2-layer coban wraps and, adaptic, hydrofera blue well. Almost no drainage. Pain improved. Denies N/V/F/C. Denies redness, pus, malodor, warmth. Progress of Wound: Improved. Venous duplex reveals vein incompetence bilaterally--pt referred to vascular surgery. - Physical Exam Vital Signs Temp Pulse Resp BP 97.6 F L 64 20 H 108/64 06/06/17 14:05 06/06/17 14:05 06/06/17 14:05 06/06/17 14:05 General: Alert, Oriented x3, Cooperative, No apparent distress Skin: Ulcer/ Wound - R and L ankles with no erythema, no malodor, no pus, no calor, no TTP. No clinical signs of acute bacterial infection noted. See nurse 's wound assessment. Wound Measurements and Assessment - Nurse 1 - General Ulcer Measurement Start: 05/30/17 13:37 Freq: Status: Active Protocol: Activity Type Activity Date Activity User E-Sign Co-Sign Detail Recorded Client Recorded Date Recorded By Document 06/06/17 14:05 DL [id number] 06/06/17 14:21 DL 06/06/17 14:05 Wound Center Nurse 1 [Ulcer Assessment Protocol: WC.WD.LOC] #12 right anterior ankle -Current Size (cm) - Length 0.2 -Current Size (cm) - Width 0.2 -Current Size (cm) - Depth 0.1 -Total Square Cm 0.04 -Photo Taken No -Exudate Amt None Present (0 %) -Wound Margin Flat & Intact -Granulation Amt Large (67-100%) -Granulation Quality Pale -Necrosis Amt Small (1-33%) -Necrotic Tissue Type Adherent Slough -Structure Exposed N/A -Texture (Nikia-wound Skin Appearance) Scarring -Moisture (Nikia-wound Skin Appearance Dry/Scaly ) -Color (Nikia-wound Skin Appearance) Hemosiderin Staining -Temperature (Nikia-wound Skin No Abnormality Appearance) (Pt Warm) -Ulcer Cleansing Wound Cleanser -Foul Odor after Cleansing No -Anesthetic Used 4% Lidocaine Solution #11 R Lat ankle -Current Size (cm) - Length 0.6 -Current Size (cm) - Width 0.7 -Current Size (cm) - Depth 0.2 -Total Square Cm 0.42 -Photo Taken No -Exudate Amt None Present (0 %) -Wound Margin Thickened -Granulation Amt None Present (0 %) -Necrosis Amt Large (67-100%) -Necrotic Tissue Type Adherent Slough -Texture (Nikia-wound Skin Appearance) Scarring -Moisture (Nikia-wound Skin Appearance Dry/Scaly ) -Color (Nikia-wound Skin Appearance) Hemosiderin Staining -Temperature (Nikia-wound Skin No Abnormality Appearance) (Pt Warm) -Ulcer Cleansing Wound Cleanser -Foul Odor after Cleansing No -Anesthetic Used 4% Lidocaine Solution #10 R Med Ankle -Current Size (cm) - Length 2.2 -Current Size (cm) - Width 3.9 -Current Size (cm) - Depth 0.1 -Total Square Cm 8.58 -Photo Taken No -Exudate Amt Small (1-33%) -Exudate Type Serosanguineous -Wound Margin Thickened -Granulation Amt None Present (0 %) -Necrosis Amt Large (67-100%) -Necrotic Tissue Type Adherent Slough -Structure Exposed N/A -Texture (Nikia-wound Skin Appearance) Scarring -Moisture (Nikia-wound Skin Appearance Dry/Scaly ) -Color (Nikia-wound Skin Appearance) Hemosiderin Staining -Temperature (Nikia-wound Skin No Abnormality Appearance) (Pt Warm) -Tenderness on Palpation (Nikia-wound No Skin Appearance) -Ulcer Cleansing Wound Cleanser -Foul Odor after Cleansing No -Anesthetic Used 4% Lidocaine Solution #9 L Med Ankle -Current Size (cm) - Length 8 -Current Size (cm) - Width 2.9 -Current Size (cm) - Depth 0.1 -Total Square Cm 23.2 -Photo Taken No -Exudate Amt Medium (34-66%) -Exudate Type Serosanguineous -Wound Margin Thickened -Granulation Amt Medium (34-66%) -Granulation Quality [place] -Necrosis Amt Medium (34-66%) -Necrotic Tissue Type Adherent Slough -Structure Exposed N/A -Texture (Nikia-wound Skin Appearance) Scarring -Moisture (Nikia-wound Skin Appearance Dry/Scaly ) -Color (Nikia-wound Skin Appearance) Hemosiderin Staining -Temperature (Nikia-wound Skin No Abnormality Appearance) (Pt Warm) -Ulcer Cleansing Wound Cleanser -Foul Odor after Cleansing No [Edema Assessment] -Right Calf (cm) 36 -Right Ankle (cm) 21 -Left Ankle (cm) 34.2 -Left Foot (cm) 21 WC - Nurse 2 - General Ulcer CM Notes Start: 05/30/17 13:37 Freq: Status: Active Protocol: Activity Type Activity Date Activity User E-Sign Co-Sign Detail Recorded Client Recorded Date Recorded By Document 06/06/17 14:37 MW [id number] 06/06/17 14:41 MW 06/06/17 14:37 Wound Center Nurse 2 [Procedure/Treatment] #12 right anterior ankle -Time 14:37 -Correct Patient Yes -Correct Side, Site, Position Yes -Correct Procedure Yes -Procedure Performed No -Post Debridement Size (cm) - Length 0 -Post Debridement Size (cm) - Width 0 -Post Debridement Size (cm) - Depth 0 -Total Square Cm 0 -Wound/Ulcer Outcome Healed- Epithelialized -Ulcer Cleansing Rinsed/ Irrigated with Saline -Foul Odor after Cleansing No -Bioengineered Tissue No -Cetacaine [place] No -Bleeding Controlled with Pressure -Treatment Response Procedure Tolerated Well #11 R Lat ankle -Time 14:37 -Correct Patient Yes -Correct Side, Site, Position Yes -Correct Procedure Yes -Procedure Performed Yes -Type of Procedure Debridement -Clinical Debridement Subcutaneous -Post Debridement Size (cm) - Length 0.6 -Post Debridement Size (cm) - Width 0.6 -Post Debridement Size (cm) - Depth 0.2 -Total Square Cm 0.36 -Wound/Ulcer Outcome Not Healed -Ulcer Cleansing Rinsed/ Irrigated with Saline -Foul Odor after Cleansing No -Bioengineered Tissue No -Cetacaine [place] No -Bleeding Controlled with Pressure -Treatment Response Procedure Tolerated Well #10 R Med Ankle -Time 14:37 -Correct Patient Yes -Correct Side, Site, Position Yes -Correct Procedure Yes -Procedure Performed Yes -Type of Procedure Debridement -Clinical Debridement Subcutaneous -Post Debridement Size (cm) - Length 0.8 -Post Debridement Size (cm) - Width 0.5 -Post Debridement Size (cm) - Depth 0.2 -Total Square Cm 0.40 -Wound/Ulcer Outcome Not Healed -Ulcer Cleansing Rinsed/ Irrigated with Saline -Foul Odor after Cleansing No -Bioengineered Tissue No -Cetacaine [place] No -Bleeding Controlled with Pressure -Treatment Response Procedure Tolerated Well #9 L Med Ankle -Time 14:38 -Correct Patient Yes -Correct Side, Site, Position Yes -Correct Procedure Yes -Procedure Performed Yes -Type of Procedure Debridement -Clinical Debridement Subcutaneous -Post Debridement Size (cm) - Length 8.5 -Post Debridement Size (cm) - Width 2.1 -Post Debridement Size (cm) - Depth 0.1 -Total Square Cm 17.85 -Wound/Ulcer Outcome Not Healed -Ulcer Cleansing Rinsed/ Irrigated with Saline -Foul Odor after Cleansing No -Bioengineered Tissue No -Cetacaine [place] No -Bleeding Controlled with Pressure -Treatment Response Procedure Tolerated Well [See Physician Procedure note for Specifics] Pain Scale: 0-10 Numeric [Pain] -Is Patient Pain Free? Yes Debridement Note Post-Debridement Measurements/Treatment WC - Nurse 2 - General Ulcer CM Notes Start: 05/30/17 13:37 Freq: Status: Active Protocol: Activity Type Activity Date Activity User E-Sign Co-Sign Detail Recorded Client Recorded Date Recorded By Document 05/30/17 14:11 MW [id number] 05/30/17 14:20 MW Document 06/06/17 14:37 MW [id number] 06/06/17 14:41 MW 05/30/17 06/06/17 14:11 14:37 Wound Center Nurse 2 #12 right anterior ankle -Time 14:19 14:37 -Correct Patient Yes Yes -Correct Side, Site, Position Yes Yes -Correct Procedure Yes Yes -Procedure Performed Yes No -Type of Procedure Debridement -Clinical Debridement Subcutaneous -Post Debridement Size (cm) - Length 2.0 0 -Post Debridement Size (cm) - Width 0.6 0 -Post Debridement Size (cm) - Depth 0.1 0 -Total Square Cm 1.20 0 -Wound/Ulcer Outcome Not Healed Healed- Epithelialized -Ulcer Cleansing Rinsed/ Rinsed/ Irrigated with Irrigated with Saline Saline -Foul Odor after Cleansing No No -Bioengineered Tissue No No -Cetacaine [place] No No -Bleeding Controlled with Pressure Pressure -Treatment Response Procedure Procedure Tolerated Well Tolerated Well #11 R Lat ankle -Time 14:16 14:37 -Correct Patient Yes Yes -Correct Side, Site, Position Yes Yes -Correct Procedure Yes Yes -Procedure Performed Yes Yes -Type of Procedure Debridement Debridement -Clinical Debridement Subcutaneous Subcutaneous -Post Debridement Size (cm) - Length 0.5 0.6 -Post Debridement Size (cm) - Width 1.0 0.6 -Post Debridement Size (cm) - Depth 0.2 0.2 -Total Square Cm 0.50 0.36 -Wound/Ulcer Outcome Not Healed Not Healed -Ulcer Cleansing Rinsed/ Rinsed/ Irrigated with Irrigated with Saline Saline -Foul Odor after Cleansing No No -Bioengineered Tissue No No -Cetacaine [place] No No -Bleeding Controlled with Pressure Pressure -Treatment Response Procedure Procedure Tolerated Well Tolerated Well #10 R Med Ankle -Time 14:16 14:37 -Correct Patient Yes Yes -Correct Side, Site, Position Yes Yes -Correct Procedure Yes Yes -Procedure Performed Yes Yes -Type of Procedure Debridement Debridement -Clinical Debridement Subcutaneous Subcutaneous -Post Debridement Size (cm) - Length 1.8 0.8 -Post Debridement Size (cm) - Width 3.5 0.5 -Post Debridement Size (cm) - Depth 0.1 0.2 -Total Square Cm 6.30 0.40 -Wound/Ulcer Outcome Not Healed Not Healed -Ulcer Cleansing Rinsed/ Rinsed/ Irrigated with Irrigated with Saline Saline -Foul Odor after Cleansing No No -Bioengineered Tissue No No -Cetacaine [place] No No -Bleeding Controlled with Pressure Pressure -Treatment Response Procedure Procedure Tolerated Well Tolerated Well #9 L Med Ankle -Time 14:16 14:38 -Correct Patient Yes Yes -Correct Side, Site, Position Yes Yes -Correct Procedure Yes Yes -Procedure Performed Yes Yes -Type of Procedure Debridement Debridement -Clinical Debridement Subcutaneous Subcutaneous -Post Debridement Size (cm) - Length 8.0 8.5 -Post Debridement Size (cm) - Width 3.5 2.1 -Post Debridement Size (cm) - Depth 0.1 0.1 -Total Square Cm 28.00 17.85 -Wound/Ulcer Outcome Not Healed Not Healed -Ulcer Cleansing Rinsed/ Rinsed/ Irrigated with Irrigated with Saline Saline -Foul Odor after Cleansing No No -Bioengineered Tissue No No -Cetacaine [place] No No -Bleeding Controlled with Pressure Pressure -Treatment Response Procedure Procedure Tolerated Well Tolerated Well Pain Scale: 0-10 Numeric Is Patient Pain Free? Yes Yes Wound debrided: R lateral ankle Laterality: Right Wound Grade/Stage: full thickness VLU Type of Debridement: Excisional debridement Anesthesia Used: 4% Lidocaine Solution Depth: Down to and including healthy tissue, in the subcutaneous layer Percentage of wound debrided: 100 Instrument Used: 5mm curette Tissue Removed: fibrous slough Severity: Fat Layer Exposed Amount of bleeding with debridement: Mild Bleeding Controlled with: Pressure, Compression and gauze Patient tolerated procedure well Assessment/Plan Active Problems Venous insufficiency (chronic) (peripheral) (Chronic) I87.2 Non-pressure chronic ulcer of right ankle with fat layer exposed (Acute) Non-pressure chronic ulcer of left ankle with fat layer exposed (Acute) Localized edema (Acute) Assessment: See diagnoses Plan: SQ/excisional debridment b/l ankle ulcers as above >30 sq cm. Screening LIZ in clinic next done, non-compressible on the L, normal LIZ on the L. Referral to vascular surgery based on venous duplex results. Pt does well with 3M 2-layer coban wraps, re-apply. Cont hydrofera blue, cont adaptic to wound bed prior to application of hydrofera blue. Monitor for redness, pus, malodor, warmth, pain, swelling as well as for N/V/F/C and go to the ED with these. Return in 1 week with me, call with questions.
[2017-06-13 14:13] VITALS: BP 129/68; PULSE 79; RESP 18; TEMP 36.8
--- NOTE | 2017-06-13 15:25 | PCM.WC.PN ---
(1) Non-pressure chronic ulcer of right ankle with fat layer exposed Status: Acute Current Visit: Yes Code(s): L97.312 - Non-pressure chronic ulcer of right ankle with fat layer exposed (2) Non-pressure chronic ulcer of left ankle with fat layer exposed Status: Acute Current Visit: Yes Code(s): L97.322 - Non-pressure chronic ulcer of left ankle with fat layer exposed (3) Venous insufficiency (chronic) (peripheral) Status: Chronic Current Visit: Yes Comment: I87.2 (4) Localized edema Status: Acute Current Visit: Yes Code(s): R60.0 - Localized edema Type of Wound Date of Service: 06/13/17 Chief Complaint: R and L ankle ulcers History of Wound: This 76-year-old male presents [facility] to [facility] for recurrent venous leg ulcerations of the left and right ankles. 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 Patient is also known to have chronic leg edema. He is drinking a protein supplementation drink daily still at this time. He denies fever, chills, nausea, vomiting, leg pain during the day. He had his venous doppler with reflux in the past, but not recently. He denies leg redness or drainage. 05/02--Improved. Vascular testing scheduled for next week. Tolerating 3M 2-layer coban wraps and hydrofera blue well. Pain improved. Denies N/V/F/C. Denies redness, pus, malodor, warmth. 05/09--Improved. Vascular testing done and reviewed. Tolerating 3M 2-layer coban wraps and hydrofera blue well. Pain improved. Denies N/V/F/C. Denies redness, pus, malodor, warmth. 05/16--Improved. Vascular testing done and reviewed. Tolerating 3M 2-layer coban wraps and hydrofera blue well. Pain improved. Denies N/V/F/C. Denies redness, pus, malodor, warmth. 05/30/17--Improved. Tolerating 3M 2-layer coban wraps and hydrofera blue well. Almost no drainge--hydrofera blue is sticking to the ulcers, so we will add adaptic first. Pain improved. Denies N/V/F/C. Denies redness, pus, malodor, warmth. 06/06--Improved. Tolerating 3M 2-layer coban wraps and, adaptic, hydrofera blue well. Almost no drainage. Pain improved. Denies N/V/F/C. Denies redness, pus, malodor, warmth. 06/13--Improved. Tolerating 3M 2-layer coban wraps and, adaptic, hydrofera blue well. Almost no drainage. Pain improved. Denies N/V/F/C. Denies redness, pus, malodor, warmth. Waiting for appointment with Dr. Chapman. Progress of Wound: Improved. Venous duplex reveals vein incompetence bilaterally--pt referred to vascular surgery. - Physical Exam Vital Signs Temp Pulse Resp BP 98.2 F 79 18 129/68 H 06/13/17 14:13 06/13/17 14:13 06/13/17 14:13 06/13/17 14:13 General: Alert, Oriented x3, Cooperative, No apparent distress Extremities: Edema Skin: Ulcer/ Wound - R and L ankles with no erythema, no calor, no purulent drainage, no malodor, no TTP of ulcer or josie-ulcer area. No clinical signs of acute bacterial infection noted. See wound/edema assessment below. Wound Measurements and Assessment - Nurse 1 - General Ulcer Measurement Start: 05/30/17 13:37 Freq: Status: Active Protocol: Activity Type Activity Date Activity User E-Sign Co-Sign Detail Recorded Client Recorded Date Recorded By Document 06/13/17 14:13 DV [id number] 06/13/17 14:39 DV 06/13/17 14:13 Wound Center Nurse 1 [Ulcer Assessment Protocol: WC.WD.LOC] #11 R Lat ankle -Combined with other wound No -Current Size (cm) - Length 0.4 -Current Size (cm) - Width 0.5 -Current Size (cm) - Depth 0.2 -Total Square Cm 0.20 -Photo Taken No -Epithelialization None Present -Tunneling No -Undermining/Tunneling No -Circular Undermining No -Classification - Thickness Full Thickness without Exposed Support Structure -Exudate Amt None Present (0 %) -Wound Margin Distinct, Outline Attached -Granulation Amt None Present (0 %) -Granulation Quality N/A -Slough/Fibrin Yes -Necrosis Amt Large (67-100%) -Necrotic Tissue Type Adherent Slough -Structure Exposed None/Limited to Skin Breakdown -Texture (Josie-wound Skin Appearance) Assessed Scarring -Moisture (Josie-wound Skin Appearance Assessed ) Dry/Scaly -Color (Josie-wound Skin Appearance) No Abnormality Assessed -Temperature (Josie-wound Skin No Abnormality Appearance) (Pt Warm) -Tenderness on Palpation (Josie-wound No Skin Appearance) -Ulcer Cleansing Wound Cleanser -Foul Odor after Cleansing No -Anesthetic Used 4% Lidocaine Solution #10 R Med Ankle -Combined with other wound No -Current Size (cm) - Length 0.9 -Current Size (cm) - Width 0.9 -Current Size (cm) - Depth 0.1 -Total Square Cm 0.81 -Photo Taken No -Epithelialization Small 1-33% -Tunneling No -Undermining/Tunneling No -Circular Undermining No -Classification - Thickness Full Thickness without Exposed Support Structure -Exudate Amt Small (1-33%) -Exudate Type Serosanguineous -Wound Margin Distinct, Outline Attached -Granulation Amt Small (1-33%) -Granulation Quality [place] -Slough/Fibrin Yes -Necrosis Amt Large (67-100%) -Necrotic Tissue Type Adherent Slough -Structure Exposed None/Limited to Skin Breakdown -Texture (Josie-wound Skin Appearance) Assessed Scarring -Moisture (Josie-wound Skin Appearance Assessed ) Dry/Scaly -Color (Josie-wound Skin Appearance) No Abnormality Assessed -Temperature (Josie-wound Skin No Abnormality Appearance) (Pt Warm) -Ulcer Cleansing Wound Cleanser -Foul Odor after Cleansing No -Anesthetic Used 4% Lidocaine Solution #9 L Med Ankle -Combined with other wound No -Current Size (cm) - Length 8.0 -Current Size (cm) - Width 2.2 -Current Size (cm) - Depth 0.1 -Total Square Cm 17.60 -Photo Taken No -Epithelialization Small 1-33% -Tunneling No -Undermining/Tunneling No -Circular Undermining No -Classification - Thickness Full Thickness without Exposed Support Structure -Exudate Amt Small (1-33%) -Exudate Type Serosanguineous -Wound Margin Distinct, Outline Attached -Granulation Amt Small (1-33%) -Granulation Quality Red -Slough/Fibrin Yes -Necrosis Amt Large (67-100%) -Necrotic Tissue Type Adherent Slough -Structure Exposed None/Limited to Skin Breakdown -Texture (Josie-wound Skin Appearance) Assessed Rash -Moisture (Josie-wound Skin Appearance Assessed ) Weeping -Color (Josie-wound Skin Appearance) Assessed Mottled -Temperature (Josie-wound Skin No Abnormality Appearance) (Pt Warm) -Tenderness on Palpation (Josie-wound No Skin Appearance) -Ulcer Cleansing Wound Cleanser -Foul Odor after Cleansing No -Anesthetic Used 4% Lidocaine Solution [Edema Assessment] -Right Calf (cm) 35.0 -Right Ankle (cm) 22.0 -Left Calf (cm) 35.5 -Left Ankle (cm) 22.3 WC - Nurse 2 - General Ulcer CM Notes Start: 05/30/17 13:37 Freq: Status: Active Protocol: Activity Type Activity Date Activity User E-Sign Co-Sign Detail Recorded Client Recorded Date Recorded By Document 06/13/17 14:53 MW [id number] 06/13/17 14:59 MW 06/13/17 14:53 Wound Center Nurse 2 [Procedure/Treatment] #11 R Lat ankle -Time 14:56 -Correct Patient Yes -Correct Side, Site, Position Yes -Correct Procedure Yes -Procedure Performed Yes -Type of Procedure Debridement -Clinical Debridement Subcutaneous -Post Debridement Size (cm) - Length 0.8 -Post Debridement Size (cm) - Width 1.2 -Post Debridement Size (cm) - Depth 0.1 -Total Square Cm 0.96 -Wound/Ulcer Outcome Not Healed -Ulcer Cleansing Rinsed/ Irrigated with Saline -Foul Odor after Cleansing No -Bioengineered Tissue No -Cetacaine [place] No -Bleeding Controlled with Pressure -Treatment Response Procedure Tolerated Well #10 R Med Ankle -Time 14:56 -Correct Patient Yes -Correct Side, Site, Position Yes -Correct Procedure Yes -Procedure Performed Yes -Type of Procedure Debridement -Clinical Debridement Subcutaneous -Post Debridement Size (cm) - Length 0.3 -Post Debridement Size (cm) - Width 2.0 -Post Debridement Size (cm) - Depth 0.1 -Total Square Cm 0.60 -Wound/Ulcer Outcome Not Healed -Ulcer Cleansing Rinsed/ Irrigated with Saline -Foul Odor after Cleansing No -Bioengineered Tissue No -Cetacaine [place] No -Bleeding Controlled with Pressure -Treatment Response Procedure Tolerated Well #9 L Med Ankle -Time 14:57 -Correct Patient Yes -Correct Side, Site, Position Yes -Correct Procedure Yes -Procedure Performed Yes -Type of Procedure Debridement -Clinical Debridement Subcutaneous -Post Debridement Size (cm) - Length 7.8 -Post Debridement Size (cm) - Width 2.2 -Post Debridement Size (cm) - Depth 0.1 -Total Square Cm 17.16 -Wound/Ulcer Outcome Not Healed -Ulcer Cleansing Rinsed/ Irrigated with Saline -Foul Odor after Cleansing No -Bioengineered Tissue No -Cetacaine [place] No -Bleeding Controlled with Pressure -Treatment Response Procedure Tolerated Well [See Physician Procedure note for Specifics] Pain Scale: 0-10 Numeric [Pain] -Is Patient Pain Free? Yes Debridement Note Post-Debridement Measurements/Treatment WC - Nurse 2 - General Ulcer CM Notes Start: 05/30/17 13:37 Freq: Status: Active Protocol: Activity Type Activity Date Activity User E-Sign Co-Sign Detail Recorded Client Recorded Date Recorded By Document 05/30/17 14:11 MW [id number] 05/30/17 14:20 MW Document 06/06/17 14:37 MW [id number] 06/06/17 14:41 MW Document 06/13/17 14:53 MW [id number] 06/13/17 14:59 MW 05/30/17 06/06/17 06/13/17 14:11 14:37 14:53 Wound Center Nurse 2 #12 right anterior ankle -Time 14:19 14:37 -Correct Patient Yes Yes -Correct Side, Site, Position Yes Yes -Correct Procedure Yes Yes -Procedure Performed Yes No -Type of Procedure Debridement -Clinical Debridement Subcutaneous -Post Debridement Size (cm) - Length 2.0 0 -Post Debridement Size (cm) - Width 0.6 0 -Post Debridement Size (cm) - Depth 0.1 0 -Total Square Cm 1.20 0 -Wound/Ulcer Outcome Not Healed Healed- Epithelialized -Ulcer Cleansing Rinsed/ Rinsed/ Irrigated with Irrigated with Saline Saline -Foul Odor after Cleansing No No -Bioengineered Tissue No No -Cetacaine [place] No No -Bleeding Controlled with Pressure Pressure -Treatment Response Procedure Procedure Tolerated Well Tolerated Well #11 R Lat ankle -Time 14:16 14:37 14:56 -Correct Patient Yes Yes Yes -Correct Side, Site, Position Yes Yes Yes -Correct Procedure Yes Yes Yes -Procedure Performed Yes Yes Yes -Type of Procedure Debridement Debridement Debridement -Clinical Debridement Subcutaneous Subcutaneous Subcutaneous -Post Debridement Size (cm) - Length 0.5 0.6 0.8 -Post Debridement Size (cm) - Width 1.0 0.6 1.2 -Post Debridement Size (cm) - Depth 0.2 0.2 0.1 -Total Square Cm 0.50 0.36 0.96 -Wound/Ulcer Outcome Not Healed Not Healed Not Healed -Ulcer Cleansing Rinsed/ Rinsed/ Rinsed/ Irrigated with Irrigated with Irrigated with Saline Saline Saline -Foul Odor after Cleansing No No No -Bioengineered Tissue No No No -Cetacaine [place] No No No -Bleeding Controlled with Pressure Pressure Pressure -Treatment Response Procedure Procedure Procedure Tolerated Well Tolerated Well Tolerated Well #10 R Med Ankle -Time 14:16 14:37 14:56 -Correct Patient Yes Yes Yes -Correct Side, Site, Position Yes Yes Yes -Correct Procedure Yes Yes Yes -Procedure Performed Yes Yes Yes -Type of Procedure Debridement Debridement Debridement -Clinical Debridement Subcutaneous Subcutaneous Subcutaneous -Post Debridement Size (cm) - Length 1.8 0.8 0.3 -Post Debridement Size (cm) - Width 3.5 0.5 2.0 -Post Debridement Size (cm) - Depth 0.1 0.2 0.1 -Total Square Cm 6.30 0.40 0.60 -Wound/Ulcer Outcome Not Healed Not Healed Not Healed -Ulcer Cleansing Rinsed/ Rinsed/ Rinsed/ Irrigated with Irrigated with Irrigated with Saline Saline Saline -Foul Odor after Cleansing No No No -Bioengineered Tissue No No No -Cetacaine [place] No No No -Bleeding Controlled with Pressure Pressure Pressure -Treatment Response Procedure Procedure Procedure Tolerated Well Tolerated Well Tolerated Well #9 L Med Ankle -Time 14:16 14:38 14:57 -Correct Patient Yes Yes Yes -Correct Side, Site, Position Yes Yes Yes -Correct Procedure Yes Yes Yes -Procedure Performed Yes Yes Yes -Type of Procedure Debridement Debridement Debridement -Clinical Debridement Subcutaneous Subcutaneous Subcutaneous -Post Debridement Size (cm) - Length 8.0 8.5 7.8 -Post Debridement Size (cm) - Width 3.5 2.1 2.2 -Post Debridement Size (cm) - Depth 0.1 0.1 0.1 -Total Square Cm 28.00 17.85 17.16 -Wound/Ulcer Outcome Not Healed Not Healed Not Healed -Ulcer Cleansing Rinsed/ Rinsed/ Rinsed/ Irrigated with Irrigated with Irrigated with Saline Saline Saline -Foul Odor after Cleansing No No No -Bioengineered Tissue No No No -Cetacaine [place] No No No -Bleeding Controlled with Pressure Pressure Pressure -Treatment Response Procedure Procedure Procedure Tolerated Well Tolerated Well Tolerated Well Pain Scale: 0-10 Numeric Is Patient Pain Free? Yes Yes Yes Wound debrided: R lateral ankle Laterality: Right Wound Grade/Stage: full thickness vlu Type of Debridement: Excisional debridement Anesthesia Used: 4% Lidocaine Solution Depth: Down to and including healthy tissue, in the subcutaneous layer Percentage of wound debrided: 100 Instrument Used: 3mm curette Tissue Removed: fibrous slough Severity: Fat Layer Exposed Amount of bleeding with debridement: Mild Bleeding Controlled with: Pressure, Compression and gauze Patient tolerated procedure well - Additional Wound Wound debrided: R medial ankle Laterality: Right Wound Grade/Stage: full thickness VLU Type of Debridement: Excisional debridement Anesthesia Used: 4% Lidocaine Solution Depth: Down to and including healthy tissue, in the subcutaneous layer Percentage of wound debrided: 100 Instrument Used: 3mm curette Tissue Removed: fibrous slough Severity: Fat Layer Exposed Amount of bleeding with debridement: Mild Bleeding Controlled with: Pressure, Compression and gauze Patient tolerated procedure: Patient tolerated procedure well - Additional Wound Wound debrided: L medial ankle Laterality: Left Wound Grade/Stage: full thickness VLU Type of Debridement: Excisional debridement Anesthesia Used: 4% Lidocaine Solution Depth: Down to and including healthy tissue, in the subcutaneous layer Percentage of wound debrided: 100 Instrument Used: 3mm curette Tissue Removed: fibrous slough Severity: Fat Layer Exposed Amount of bleeding with debridement: Mild Bleeding Controlled with: Pressure, Compression and gauze Patient tolerated procedure: Patient tolerated procedure well Assessment/Plan Active Problems Venous insufficiency (chronic) (peripheral) (Chronic) I87.2 Non-pressure chronic ulcer of right ankle with fat layer exposed (Acute) Non-pressure chronic ulcer of left ankle with fat layer exposed (Acute) Localized edema (Acute) Assessment: See diagnoses Plan: SQ/excisional debridment b/l ankle ulcers as above. Referral to vascular surgery based on venous duplex results. Pt does well with 3M 2-layer coban wraps, re-apply. Cont hydrofera blue, cont adaptic to wound bed prior to application of hydrofera blue. Monitor for redness, pus, malodor, warmth, pain, swelling as well as for N/V/F/C and go to the ED with these. Return in 1 week with me, call with questions.
--- NOTE | 2017-06-13 15:28 | PN.PCM_ITS ---
(1) Non-pressure chronic ulcer of right ankle with fat layer exposed Status: Acute Current Visit: Yes Code(s): L97.312 - Non-pressure chronic ulcer of right ankle with fat layer exposed (2) Non-pressure chronic ulcer of left ankle with fat layer exposed Status: Acute Current Visit: Yes Code(s): L97.322 - Non-pressure chronic ulcer of left ankle with fat layer exposed (3) Venous insufficiency (chronic) (peripheral) Status: Chronic Current Visit: Yes Comment: I87.2 (4) Localized edema Status: Acute Current Visit: Yes Code(s): R60.0 - Localized edema Type of Wound Date of Service: 06/13/17 Chief Complaint: R and L ankle ulcers History of Wound: This 76-year-old male presents [facility] for recurrent venous leg ulcerations of the left and right ankles. 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 Patient is also known to have chronic leg edema. He is drinking a protein supplementation drink daily still at this time. He denies fever, chills, nausea, vomiting, leg pain during the day. He had his venous doppler with reflux in the past, but not recently. He denies leg redness or drainage. 05/02--Improved. Vascular testing scheduled for next week. Tolerating 3M 2-layer coban wraps and hydrofera blue well. Pain improved. Denies N/V/F/C. Denies redness, pus, malodor, warmth. 05/09--Improved. Vascular testing done and reviewed. Tolerating 3M 2-layer coban wraps and hydrofera blue well. Pain improved. Denies N/V/F/C. Denies redness, pus, malodor, warmth. 05/16--Improved. Vascular testing done and reviewed. Tolerating 3M 2-layer coban wraps and hydrofera blue well. Pain improved. Denies N/V/F/C. Denies redness, pus, malodor, warmth. 05/30/17--Improved. Tolerating 3M 2-layer coban wraps and hydrofera blue well. Almost no drainge-- hydrofera blue is sticking to the ulcers, so we will add adaptic first. Pain improved. Denies N/V/F/C. Denies redness, pus, malodor, warmth. 06/06-- Improved. Tolerating 3M 2-layer coban wraps and, adaptic, hydrofera blue well. Almost no drainage. Pain improved. Denies N/V/F/C. Denies redness, pus, malodor, warmth. 06/13--Improved. Tolerating 3M 2-layer coban wraps and, adaptic, hydrofera blue well. Almost no drainage. Pain improved. Denies N/V/F/ C. Denies redness, pus, malodor, warmth. Waiting for appointment with Dr. Chapman. Progress of Wound: Improved. Venous duplex reveals vein incompetence bilaterally--pt referred to vascular surgery. - Physical Exam Vital Signs Temp Pulse Resp BP 98.2 F 79 18 129/68 H 06/13/17 14:13 06/13/17 14:13 06/13/17 14:13 06/13/17 14:13 General: Alert, Oriented x3, Cooperative, No apparent distress Extremities: Edema Skin: Ulcer/ Wound - R and L ankles with no erythema, no calor, no purulent drainage, no malodor, no TTP of ulcer or josie-ulcer area. No clinical signs of acute bacterial infection noted. See wound/edema assessment below. Wound Measurements and Assessment - Nurse 1 - General Ulcer Measurement Start: 05/30/17 13:37 Freq: Status: Active Protocol: Activity Type Activity Date Activity User E-Sign Co-Sign Detail Recorded Client Recorded Date Recorded By Document 06/13/17 14:13 DV [id number] 06/13/17 14:39 DV 06/13/17 14:13 Wound Center Nurse 1 [Ulcer Assessment Protocol: WC.WD.LOC] #11 R Lat ankle -Combined with other wound No -Current Size (cm) - Length 0.4 -Current Size (cm) - Width 0.5 -Current Size (cm) - Depth 0.2 -Total Square Cm 0.20 -Photo Taken No -Epithelialization None Present -Tunneling No -Undermining/Tunneling No -Circular Undermining No -Classification - Thickness Full Thickness without Exposed Support Structure -Exudate Amt None Present (0 %) -Wound Margin Distinct, Outline Attached -Granulation Amt None Present (0 %) -Granulation Quality N/A -Slough/Fibrin Yes -Necrosis Amt Large (67-100%) -Necrotic Tissue Type Adherent Slough -Structure Exposed None/Limited to Skin Breakdown -Texture (Josie-wound Skin Appearance) Assessed Scarring -Moisture (Josie-wound Skin Appearance Assessed ) Dry/Scaly -Color (Josie-wound Skin Appearance) No Abnormality Assessed -Temperature (Josie-wound Skin No Abnormality Appearance) (Pt Warm) -Tenderness on Palpation (Josie-wound No Skin Appearance) -Ulcer Cleansing Wound Cleanser -Foul Odor after Cleansing No -Anesthetic Used 4% Lidocaine Solution #10 R Med Ankle -Combined with other wound No -Current Size (cm) - Length 0.9 -Current Size (cm) - Width 0.9 -Current Size (cm) - Depth 0.1 -Total Square Cm 0.81 -Photo Taken No -Epithelialization Small 1-33% -Tunneling No -Undermining/Tunneling No -Circular Undermining No -Classification - Thickness Full Thickness without Exposed Support Structure -Exudate Amt Small (1-33%) -Exudate Type Serosanguineous -Wound Margin Distinct, Outline Attached -Granulation Amt Small (1-33%) -Granulation Quality [place] -Slough/Fibrin Yes -Necrosis Amt Large (67-100%) -Necrotic Tissue Type Adherent Slough -Structure Exposed None/Limited to Skin Breakdown -Texture (Josie-wound Skin Appearance) Assessed Scarring -Moisture (Josie-wound Skin Appearance Assessed ) Dry/Scaly -Color (Josie-wound Skin Appearance) No Abnormality Assessed -Temperature (Josie-wound Skin No Abnormality Appearance) (Pt Warm) -Ulcer Cleansing Wound Cleanser -Foul Odor after Cleansing No -Anesthetic Used 4% Lidocaine Solution #9 L Med Ankle -Combined with other wound No -Current Size (cm) - Length 8.0 -Current Size (cm) - Width 2.2 -Current Size (cm) - Depth 0.1 -Total Square Cm 17.60 -Photo Taken No -Epithelialization Small 1-33% -Tunneling No -Undermining/Tunneling No -Circular Undermining No -Classification - Thickness Full Thickness without Exposed Support Structure -Exudate Amt Small (1-33%) -Exudate Type Serosanguineous -Wound Margin Distinct, Outline Attached -Granulation Amt Small (1-33%) -Granulation Quality Red -Slough/Fibrin Yes -Necrosis Amt Large (67-100%) -Necrotic Tissue Type Adherent Slough -Structure Exposed None/Limited to Skin Breakdown -Texture (Josie-wound Skin Appearance) Assessed Rash -Moisture (Josie-wound Skin Appearance Assessed ) Weeping -Color (Josie-wound Skin Appearance) Assessed Mottled -Temperature (Josie-wound Skin No Abnormality Appearance) (Pt Warm) -Tenderness on Palpation (Josie-wound No Skin Appearance) -Ulcer Cleansing Wound Cleanser -Foul Odor after Cleansing No -Anesthetic Used 4% Lidocaine Solution [Edema Assessment] -Right Calf (cm) 35.0 -Right Ankle (cm) 22.0 -Left Calf (cm) 35.5 -Left Ankle (cm) 22.3 WC - Nurse 2 - General Ulcer CM Notes Start: 05/30/17 13:37 Freq: Status: Active Protocol: Activity Type Activity Date Activity User E-Sign Co-Sign Detail Recorded Client Recorded Date Recorded By Document 06/13/17 14:53 MW [id number] 06/13/17 14:59 MW 06/13/17 14:53 Wound Center Nurse 2 [Procedure/Treatment] #11 R Lat ankle -Time 14:56 -Correct Patient Yes -Correct Side, Site, Position Yes -Correct Procedure Yes -Procedure Performed Yes -Type of Procedure Debridement -Clinical Debridement Subcutaneous -Post Debridement Size (cm) - Length 0.8 -Post Debridement Size (cm) - Width 1.2 -Post Debridement Size (cm) - Depth 0.1 -Total Square Cm 0.96 -Wound/Ulcer Outcome Not Healed -Ulcer Cleansing Rinsed/ Irrigated with Saline -Foul Odor after Cleansing No -Bioengineered Tissue No -Cetacaine [place] No -Bleeding Controlled with Pressure -Treatment Response Procedure Tolerated Well #10 R Med Ankle -Time 14:56 -Correct Patient Yes -Correct Side, Site, Position Yes -Correct Procedure Yes -Procedure Performed Yes -Type of Procedure Debridement -Clinical Debridement Subcutaneous -Post Debridement Size (cm) - Length 0.3 -Post Debridement Size (cm) - Width 2.0 -Post Debridement Size (cm) - Depth 0.1 -Total Square Cm 0.60 -Wound/Ulcer Outcome Not Healed -Ulcer Cleansing Rinsed/ Irrigated with Saline -Foul Odor after Cleansing No -Bioengineered Tissue No -Cetacaine [place] No -Bleeding Controlled with Pressure -Treatment Response Procedure Tolerated Well #9 L Med Ankle -Time 14:57 -Correct Patient Yes -Correct Side, Site, Position Yes -Correct Procedure Yes -Procedure Performed Yes -Type of Procedure Debridement -Clinical Debridement Subcutaneous -Post Debridement Size (cm) - Length 7.8 -Post Debridement Size (cm) - Width 2.2 -Post Debridement Size (cm) - Depth 0.1 -Total Square Cm 17.16 -Wound/Ulcer Outcome Not Healed -Ulcer Cleansing Rinsed/ Irrigated with Saline -Foul Odor after Cleansing No -Bioengineered Tissue No -Cetacaine [place] No -Bleeding Controlled with Pressure -Treatment Response Procedure Tolerated Well [See Physician Procedure note for Specifics] Pain Scale: 0-10 Numeric [Pain] -Is Patient Pain Free? Yes Debridement Note Post-Debridement Measurements/Treatment WC - Nurse 2 - General Ulcer CM Notes Start: 05/30/17 13:37 Freq: Status: Active Protocol: Activity Type Activity Date Activity User E-Sign Co-Sign Detail Recorded Client Recorded Date Recorded By Document 05/30/17 14:11 MW [id number] 05/30/17 14:20 MW Document 06/06/17 14:37 MW [id number] 06/06/17 14:41 MW Document 06/13/17 14:53 MW [id number] 06/13/17 14:59 MW 05/30/17 06/06/17 06/13/17 14:11 14:37 14:53 Wound Center Nurse 2 #12 right anterior ankle -Time 14:19 14:37 -Correct Patient Yes Yes -Correct Side, Site, Position Yes Yes -Correct Procedure Yes Yes -Procedure Performed Yes No -Type of Procedure Debridement -Clinical Debridement Subcutaneous -Post Debridement Size (cm) - Length 2.0 0 -Post Debridement Size (cm) - Width 0.6 0 -Post Debridement Size (cm) - Depth 0.1 0 -Total Square Cm 1.20 0 -Wound/Ulcer Outcome Not Healed Healed- Epithelialized -Ulcer Cleansing Rinsed/ Rinsed/ Irrigated with Irrigated with Saline Saline -Foul Odor after Cleansing No No -Bioengineered Tissue No No -Cetacaine [place] No No -Bleeding Controlled with Pressure Pressure -Treatment Response Procedure Procedure Tolerated Well Tolerated Well #11 R Lat ankle -Time 14:16 14:37 14:56 -Correct Patient Yes Yes Yes -Correct Side, Site, Position Yes Yes Yes -Correct Procedure Yes Yes Yes -Procedure Performed Yes Yes Yes -Type of Procedure Debridement Debridement Debridement -Clinical Debridement Subcutaneous Subcutaneous Subcutaneous -Post Debridement Size (cm) - Length 0.5 0.6 0.8 -Post Debridement Size (cm) - Width 1.0 0.6 1.2 -Post Debridement Size (cm) - Depth 0.2 0.2 0.1 -Total Square Cm 0.50 0.36 0.96 -Wound/Ulcer Outcome Not Healed Not Healed Not Healed -Ulcer Cleansing Rinsed/ Rinsed/ Rinsed/ Irrigated with Irrigated with Irrigated with Saline Saline Saline -Foul Odor after Cleansing No No No -Bioengineered Tissue No No No -Cetacaine [place] No No No -Bleeding Controlled with Pressure Pressure Pressure -Treatment Response Procedure Procedure Procedure Tolerated Well Tolerated Well Tolerated Well #10 R Med Ankle -Time 14:16 14:37 14:56 -Correct Patient Yes Yes Yes -Correct Side, Site, Position Yes Yes Yes -Correct Procedure Yes Yes Yes -Procedure Performed Yes Yes Yes -Type of Procedure Debridement Debridement Debridement -Clinical Debridement Subcutaneous Subcutaneous Subcutaneous -Post Debridement Size (cm) - Length 1.8 0.8 0.3 -Post Debridement Size (cm) - Width 3.5 0.5 2.0 -Post Debridement Size (cm) - Depth 0.1 0.2 0.1 -Total Square Cm 6.30 0.40 0.60 -Wound/Ulcer Outcome Not Healed Not Healed Not Healed -Ulcer Cleansing Rinsed/ Rinsed/ Rinsed/ Irrigated with Irrigated with Irrigated with Saline Saline Saline -Foul Odor after Cleansing No No No -Bioengineered Tissue No No No -Cetacaine [place] No No No -Bleeding Controlled with Pressure Pressure Pressure -Treatment Response Procedure Procedure Procedure Tolerated Well Tolerated Well Tolerated Well #9 L Med Ankle -Time 14:16 14:38 14:57 -Correct Patient Yes Yes Yes -Correct Side, Site, Position Yes Yes Yes -Correct Procedure Yes Yes Yes -Procedure Performed Yes Yes Yes -Type of Procedure Debridement Debridement Debridement -Clinical Debridement Subcutaneous Subcutaneous Subcutaneous -Post Debridement Size (cm) - Length 8.0 8.5 7.8 -Post Debridement Size (cm) - Width 3.5 2.1 2.2 -Post Debridement Size (cm) - Depth 0.1 0.1 0.1 -Total Square Cm 28.00 17.85 17.16 -Wound/Ulcer Outcome Not Healed Not Healed Not Healed -Ulcer Cleansing Rinsed/ Rinsed/ Rinsed/ Irrigated with Irrigated with Irrigated with Saline Saline Saline -Foul Odor after Cleansing No No No -Bioengineered Tissue No No No -Cetacaine [place] No No No -Bleeding Controlled with Pressure Pressure Pressure -Treatment Response Procedure Procedure Procedure Tolerated Well Tolerated Well Tolerated Well Pain Scale: 0-10 Numeric Is Patient Pain Free? Yes Yes Yes Wound debrided: R lateral ankle Laterality: Right Wound Grade/Stage: full thickness vlu Type of Debridement: Excisional debridement Anesthesia Used: 4% Lidocaine Solution Depth: Down to and including healthy tissue, in the subcutaneous layer Percentage of wound debrided: 100 Instrument Used: 3mm curette Tissue Removed: fibrous slough Severity: Fat Layer Exposed Amount of bleeding with debridement: Mild Bleeding Controlled with: Pressure, Compression and gauze Patient tolerated procedure well - Additional Wound Wound debrided: R medial ankle Laterality: Right Wound Grade/Stage: full thickness VLU Type of Debridement: Excisional debridement Anesthesia Used: 4% Lidocaine Solution Depth: Down to and including healthy tissue, in the subcutaneous layer Percentage of wound debrided: 100 Instrument Used: 3mm curette Tissue Removed: fibrous slough Severity: Fat Layer Exposed Amount of bleeding with debridement: Mild Bleeding Controlled with: Pressure, Compression and gauze Patient tolerated procedure: Patient tolerated procedure well - Additional Wound Wound debrided: L medial ankle Laterality: Left Wound Grade/Stage: full thickness VLU Type of Debridement: Excisional debridement Anesthesia Used: 4% Lidocaine Solution Depth: Down to and including healthy tissue, in the subcutaneous layer Percentage of wound debrided: 100 Instrument Used: 3mm curette Tissue Removed: fibrous slough Severity: Fat Layer Exposed Amount of bleeding with debridement: Mild Bleeding Controlled with: Pressure, Compression and gauze Patient tolerated procedure: Patient tolerated procedure well Assessment/Plan Active Problems Venous insufficiency (chronic) (peripheral) (Chronic) I87.2 Non-pressure chronic ulcer of right ankle with fat layer exposed (Acute) Non-pressure chronic ulcer of left ankle with fat layer exposed (Acute) Localized edema (Acute) Assessment: See diagnoses Plan: SQ/excisional debridment b/l ankle ulcers as above. Referral to vascular surgery based on venous duplex results. Pt does well with 3M 2-layer coban wraps, re-apply. Cont hydrofera blue, cont adaptic to wound bed prior to application of hydrofera blue. Monitor for redness, pus, malodor, warmth, pain , swelling as well as for N/V/F/C and go to the ED with these. Return in 1 week with me, call with questions.
[2017-06-20 14:13] VITALS: BP 150/69; PULSE 66; RESP 18; TEMP 36.1
--- NOTE | 2017-06-20 15:41 | PCM.WC.PN ---
(1) Non-pressure chronic ulcer of right ankle with fat layer exposed Status: Acute Current Visit: Yes Code(s): L97.312 - Non-pressure chronic ulcer of right ankle with fat layer exposed (2) Non-pressure chronic ulcer of left ankle with fat layer exposed Status: Acute Current Visit: Yes Code(s): L97.322 - Non-pressure chronic ulcer of left ankle with fat layer exposed (3) Venous insufficiency (chronic) (peripheral) Status: Chronic Current Visit: Yes Comment: I87.2 (4) Localized edema Status: Acute Current Visit: Yes Code(s): R60.0 - Localized edema Type of Wound Date of Service: 06/20/17 Chief Complaint: R and L ankle ulcers History of Wound: This 76-year-old male presents back to [facility] for recurrent venous leg ulcerations of the left and right ankles. 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 Patient is also known to have chronic leg edema. He is drinking a protein supplementation drink daily still at this time. He denies fever, chills, nausea, vomiting, leg pain during the day. He had his venous doppler with reflux in the past, but not recently. He denies leg redness or drainage. 05/02--Improved. Vascular testing scheduled for next week. Tolerating 3M 2-layer coban wraps and hydrofera blue well. Pain improved. Denies N/V/F/C. Denies redness, pus, malodor, warmth. 05/09--Improved. Vascular testing done and reviewed. Tolerating 3M 2-layer coban wraps and hydrofera blue well. Pain improved. Denies N/V/F/C. Denies redness, pus, malodor, warmth. 05/16--Improved. Vascular testing done and reviewed. Tolerating 3M 2-layer coban wraps and hydrofera blue well. Pain improved. Denies N/V/F/C. Denies redness, pus, malodor, warmth. 05/30/17--Improved. Tolerating 3M 2-layer coban wraps and hydrofera blue well. Almost no drainge--hydrofera blue is sticking to the ulcers, so we will add adaptic first. Pain improved. Denies N/V/F/C. Denies redness, pus, malodor, warmth. 06/06--Improved. Tolerating 3M 2-layer coban wraps and, adaptic, hydrofera blue well. Almost no drainage. Pain improved. Denies N/V/F/C. Denies redness, pus, malodor, warmth. 06/13--Improved. Tolerating 3M 2-layer coban wraps and, adaptic, hydrofera blue well. Almost no drainage. Pain improved. Denies N/V/F/C. Denies redness, pus, malodor, warmth. Waiting for appointment with Dr. Chapman. 06/20--Improved. Tolerating 3M 2-layer coban wraps and, adaptic, hydrofera blue well. Almost no drainage. Pain improved. Denies N/V/F/C. Denies redness, pus, malodor, warmth. Was contacted by Dr. Chapman's office, but states he cannot schedule an appointment until he deals with his eyes. Progress of Wound: Improved. Venous duplex reveals vein incompetence bilaterally--pt referred to vascular surgery but pt states he cannot schedule an appointment there for a little while due to having problems with his eyes. - Physical Exam Vital Signs Temp Pulse Resp BP 96.9 F L 66 18 150/69 H 06/20/17 14:13 06/20/17 14:13 06/20/17 14:13 06/20/17 14:13 General: Alert, Oriented x3, Cooperative, No apparent distress Extremities: Edema - improved Skin: Ulcer/ Wound - R medial and lateral ankle, L medial ankle with no erythema, no malodor, no pus, no TTP, no warmth. No clinical signs of acute bacterial infection noted. See wound/edema assessment below. Wound Measurements and Assessment EVELIA - Nurse 1 - General Ulcer Measurement Start: 05/30/17 13:37 Freq: Status: Active Protocol: Activity Type Activity Date Activity User E-Sign Co-Sign Detail Recorded Client Recorded Date Recorded By Document 06/20/17 14:13 DV [id number] 06/20/17 14:23 DV 06/20/17 14:13 Wound Center Nurse 1 [Ulcer Assessment Protocol: EVELIA.WD.LOC] #11 R Lat ankle -Combined with other wound No -Current Size (cm) - Length 0.5 -Current Size (cm) - Width 0.7 -Current Size (cm) - Depth 0.2 -Total Square Cm 0.35 -Photo Taken Yes -Tunneling No -Undermining/Tunneling No -Circular Undermining No -Classification - Thickness Full Thickness without Exposed Support Structure -Exudate Amt Medium (34-66%) -Exudate Type Serosanguineous -Wound Margin Distinct, Outline Attached -Granulation Amt None Present (0 %) -Slough/Fibrin Yes -Necrosis Amt Large (67-100%) -Necrotic Tissue Type Adherent Slough -Structure Exposed None/Limited to Skin Breakdown -Texture (Nikia-wound Skin Appearance) Assessed Scarring -Moisture (Nikia-wound Skin Appearance No Abnormality ) Assessed -Color (Nikia-wound Skin Appearance) Assessed Hemosiderin Staining -Temperature (Nikia-wound Skin No Abnormality Appearance) (Pt Warm) -Tenderness on Palpation (Nikia-wound No Skin Appearance) -Ulcer Cleansing Wound Cleanser -Foul Odor after Cleansing No -Anesthetic Used 4% Lidocaine Solution #10 R Med Ankle -Combined with other wound No -Current Size (cm) - Length 1.0 -Current Size (cm) - Width 0.4 -Current Size (cm) - Depth 0.1 -Total Square Cm 0.40 -Photo Taken Yes -Epithelialization Small 1-33% -Tunneling No -Undermining/Tunneling No -Circular Undermining No -Classification - Thickness Full Thickness without Exposed Support Structure -Exudate Amt Small (1-33%) -Exudate Type Serosanguineous -Wound Margin Distinct, Outline Attached -Granulation Amt Small (1-33%) -Granulation Quality Pale Red -Necrosis Amt Small (1-33%) -Necrotic Tissue Type Adherent Slough -Structure Exposed None/Limited to Skin Breakdown -Texture (Nikia-wound Skin Appearance) Assessed Scarring -Moisture (Nikia-wound Skin Appearance Assessed ) -Color (Nikia-wound Skin Appearance) Assessed Hemosiderin Staining -Temperature (Nikia-wound Skin No Abnormality Appearance) (Pt Warm) -Tenderness on Palpation (Nikia-wound No Skin Appearance) -Ulcer Cleansing Wound Cleanser -Foul Odor after Cleansing No -Anesthetic Used 4% Lidocaine Solution #9 L Med Ankle -Combined with other wound No -Current Size (cm) - Length 6.9 -Current Size (cm) - Width 1.7 -Current Size (cm) - Depth 0.1 -Total Square Cm 11.73 -Photo Taken Yes -Epithelialization Small 1-33% -Tunneling No -Undermining/Tunneling No -Circular Undermining No -Classification - Thickness Full Thickness without Exposed Support Structure -Exudate Amt Small (1-33%) -Exudate Type Serosanguineous -Wound Margin Distinct, Outline Attached -Granulation Amt Small (1-33%) -Granulation Quality Pale -Slough/Fibrin Yes -Necrosis Amt Medium (34-66%) -Necrotic Tissue Type Adherent Slough -Structure Exposed None/Limited to Skin Breakdown -Texture (Nikia-wound Skin Appearance) Assessed Scarring -Moisture (Nikia-wound Skin Appearance Assessed ) Weeping -Color (Nikia-wound Skin Appearance) Assessed Hemosiderin Staining -Temperature (Nikia-wound Skin No Abnormality Appearance) (Pt Warm) -Ulcer Cleansing Wound Cleanser -Foul Odor after Cleansing No -Anesthetic Used 4% Lidocaine Solution [Edema Assessment] -Lower Limb Edema Present No -Right Calf (cm) 35.0 -Right Ankle (cm) 21.5 -Left Calf (cm) 33.3 -Left Ankle (cm) 20.7 WC - Nurse 2 - General Ulcer CM Notes Start: 05/30/17 13:37 Freq: Status: Active Protocol: Activity Type Activity Date Activity User E-Sign Co-Sign Detail Recorded Client Recorded Date Recorded By Document 06/20/17 15:04 MW [id number] 06/20/17 15:05 MW 06/20/17 15:04 Wound Center Nurse 2 [Procedure/Treatment] #11 R Lat ankle -Time 15:04 -Correct Patient Yes -Correct Side, Site, Position Yes -Correct Procedure Yes -Procedure Performed Yes -Type of Procedure Debridement -Clinical Debridement Subcutaneous -Post Debridement Size (cm) - Length 0.4 -Post Debridement Size (cm) - Width 0.5 -Post Debridement Size (cm) - Depth 0.1 -Total Square Cm 0.20 -Wound/Ulcer Outcome Not Healed -Ulcer Cleansing Rinsed/ Irrigated with Saline -Foul Odor after Cleansing No -Bioengineered Tissue No -Cetacaine [place] No -Bleeding Controlled with Pressure -Treatment Response Procedure Tolerated Well #10 R Med Ankle -Time 15:04 -Correct Patient Yes -Correct Side, Site, Position Yes -Correct Procedure Yes -Procedure Performed Yes -Type of Procedure Debridement -Clinical Debridement Subcutaneous -Post Debridement Size (cm) - Length 1.0 -Post Debridement Size (cm) - Width 1.1 -Post Debridement Size (cm) - Depth 0.1 -Total Square Cm 1.10 -Wound/Ulcer Outcome Not Healed -Ulcer Cleansing Rinsed/ Irrigated with Saline -Foul Odor after Cleansing No -Bioengineered Tissue No -Cetacaine [place] No -Bleeding Controlled with Pressure -Treatment Response Procedure Tolerated Well #9 L Med Ankle -Time 15:05 -Correct Patient Yes -Correct Side, Site, Position Yes -Correct Procedure Yes -Procedure Performed Yes -Type of Procedure Debridement -Clinical Debridement Subcutaneous -Post Debridement Size (cm) - Length 4.2 -Post Debridement Size (cm) - Width 1.9 -Post Debridement Size (cm) - Depth 0.1 -Total Square Cm 7.98 -Wound/Ulcer Outcome Not Healed -Ulcer Cleansing Rinsed/ Irrigated with Saline -Foul Odor after Cleansing No -Bioengineered Tissue No -Cetacaine [place] No -Bleeding Controlled with Pressure -Treatment Response Procedure Tolerated Well [See Physician Procedure note for Specifics] Pain Scale: 0-10 Numeric [Pain] -Is Patient Pain Free? Yes Debridement Note Post-Debridement Measurements/Treatment WC - Nurse 2 - General Ulcer CM Notes Start: 05/30/17 13:37 Freq: Status: Active Protocol: Activity Type Activity Date Activity User E-Sign Co-Sign Detail Recorded Client Recorded Date Recorded By Document 05/30/17 14:11 MW [id number] 05/30/17 14:20 MW Document 06/06/17 14:37 MW [id number] 06/06/17 14:41 MW Document 06/13/17 14:53 MW [id number] 06/13/17 14:59 MW Document 06/20/17 15:04 MW [id number] 06/20/17 15:05 MW 05/30/17 06/06/17 06/13/17 14:11 14:37 14:53 Wound Center Nurse 2 #12 right anterior ankle -Time 14:19 14:37 -Correct Patient Yes Yes -Correct Side, Site, Position Yes Yes -Correct Procedure Yes Yes -Procedure Performed Yes No -Type of Procedure Debridement -Clinical Debridement Subcutaneous -Post Debridement Size (cm) - Length 2.0 0 -Post Debridement Size (cm) - Width 0.6 0 -Post Debridement Size (cm) - Depth 0.1 0 -Total Square Cm 1.20 0 -Wound/Ulcer Outcome Not Healed Healed- Epithelialized -Ulcer Cleansing Rinsed/ Rinsed/ Irrigated with Irrigated with Saline Saline -Foul Odor after Cleansing No No -Bioengineered Tissue No No -Cetacaine [place] No No -Bleeding Controlled with Pressure Pressure -Treatment Response Procedure Procedure Tolerated Well Tolerated Well #[address] [facility] ankle -Time 14:16 14:37 14:56 -Correct Patient Yes Yes Yes -Correct Side, Site, Position Yes Yes Yes -Correct Procedure Yes Yes Yes -Procedure Performed Yes Yes Yes -Type of Procedure Debridement Debridement Debridement -Clinical Debridement Subcutaneous Subcutaneous Subcutaneous -Post Debridement Size (cm) - Length 0.5 0.6 0.8 -Post Debridement Size (cm) - Width 1.0 0.6 1.2 -Post Debridement Size (cm) - Depth 0.2 0.2 0.1 -Total Square Cm 0.50 0.36 0.96 -Wound/Ulcer Outcome Not Healed Not Healed Not Healed -Ulcer Cleansing Rinsed/ Rinsed/ Rinsed/ Irrigated with Irrigated with Irrigated with Saline Saline Saline -Foul Odor after Cleansing No No No -Bioengineered Tissue No No No -Cetacaine [place] No No No -Bleeding Controlled with Pressure Pressure Pressure -Treatment Response Procedure Procedure Procedure Tolerated Well Tolerated Well Tolerated Well #10 R [facility] Ankle -Time 14:16 14:37 14:56 -Correct Patient Yes Yes Yes -Correct Side, Site, Position Yes Yes Yes -Correct Procedure Yes Yes Yes -Procedure Performed Yes Yes Yes -Type of Procedure Debridement Debridement Debridement -Clinical Debridement Subcutaneous Subcutaneous Subcutaneous -Post Debridement Size (cm) - Length 1.8 0.8 0.3 -Post Debridement Size (cm) - Width 3.5 0.5 2.0 -Post Debridement Size (cm) - Depth 0.1 0.2 0.1 -Total Square Cm 6.30 0.40 0.60 -Wound/Ulcer Outcome Not Healed Not Healed Not Healed -Ulcer Cleansing Rinsed/ Rinsed/ Rinsed/ Irrigated with Irrigated with Irrigated with Saline Saline Saline -Foul Odor after Cleansing No No No -Bioengineered Tissue No No No -Cetacaine [place] No No No -Bleeding Controlled with Pressure Pressure Pressure -Treatment Response Procedure Procedure Procedure Tolerated Well Tolerated Well Tolerated Well #9 L Med Ankle -Time 14:16 14:38 14:57 -Correct Patient Yes Yes Yes -Correct Side, Site, Position Yes Yes Yes -Correct Procedure Yes Yes Yes -Procedure Performed Yes Yes Yes -Type of Procedure Debridement Debridement Debridement -Clinical Debridement Subcutaneous Subcutaneous Subcutaneous -Post Debridement Size (cm) - Length 8.0 8.5 7.8 -Post Debridement Size (cm) - Width 3.5 2.1 2.2 -Post Debridement Size (cm) - Depth 0.1 0.1 0.1 -Total Square Cm 28.00 17.85 17.16 -Wound/Ulcer Outcome Not Healed Not Healed Not Healed -Ulcer Cleansing Rinsed/ Rinsed/ Rinsed/ Irrigated with Irrigated with Irrigated with Saline Saline Saline -Foul Odor after Cleansing No No No -Bioengineered Tissue No No No -Cetacaine [place] No No No -Bleeding Controlled with Pressure Pressure Pressure -Treatment Response Procedure Procedure Procedure Tolerated Well Tolerated Well Tolerated Well Pain Scale: 0-10 Numeric Is Patient Pain Free? Yes Yes Yes 06/20/17 15:04 Wound Center Nurse 2 #12 right anterior ankle -Time -Correct Patient -Correct Side, Site, Position -Correct Procedure -Procedure Performed -Type of Procedure -Clinical Debridement -Post Debridement Size (cm) - Length -Post Debridement Size (cm) - Width -Post Debridement Size (cm) - Depth -Total Square Cm -Wound/Ulcer Outcome -Ulcer Cleansing -Foul Odor after Cleansing -Bioengineered Tissue -Cetacaine [place] -Bleeding Controlled with -Treatment Response #[address] [facility] ankle -Time 15:04 -Correct Patient Yes -Correct Side, Site, Position Yes -Correct Procedure Yes -Procedure Performed Yes -Type of Procedure Debridement -Clinical Debridement Subcutaneous -Post Debridement Size (cm) - Length 0.4 -Post Debridement Size (cm) - Width 0.5 -Post Debridement Size (cm) - Depth 0.1 -Total Square Cm 0.20 -Wound/Ulcer Outcome Not Healed -Ulcer Cleansing Rinsed/ Irrigated with Saline -Foul Odor after Cleansing No -Bioengineered Tissue No -Cetacaine [place] No -Bleeding Controlled with Pressure -Treatment Response Procedure Tolerated Well #10 R Med Ankle -Time 15:04 -Correct Patient Yes -Correct Side, Site, Position Yes -Correct Procedure Yes -Procedure Performed Yes -Type of Procedure Debridement -Clinical Debridement Subcutaneous -Post Debridement Size (cm) - Length 1.0 -Post Debridement Size (cm) - Width 1.1 -Post Debridement Size (cm) - Depth 0.1 -Total Square Cm 1.10 -Wound/Ulcer Outcome Not Healed -Ulcer Cleansing Rinsed/ Irrigated with Saline -Foul Odor after Cleansing No -Bioengineered Tissue No -Cetacaine [place] No -Bleeding Controlled with Pressure -Treatment Response Procedure Tolerated Well #9 L Med Ankle -Time 15:05 -Correct Patient Yes -Correct Side, Site, Position Yes -Correct Procedure Yes -Procedure Performed Yes -Type of Procedure Debridement -Clinical Debridement Subcutaneous -Post Debridement Size (cm) - Length 4.2 -Post Debridement Size (cm) - Width 1.9 -Post Debridement Size (cm) - Depth 0.1 -Total Square Cm 7.98 -Wound/Ulcer Outcome Not Healed -Ulcer Cleansing Rinsed/ Irrigated with Saline -Foul Odor after Cleansing No -Bioengineered Tissue No -Cetacaine [place] No -Bleeding Controlled with Pressure -Treatment Response Procedure Tolerated Well Pain Scale: 0-10 Numeric Is Patient Pain Free? Yes Wound debrided: R lateral and medial ankle Laterality: Right Wound Grade/Stage: Full thickness VLU Type of Debridement: Excisional debridement Anesthesia Used: 4% Lidocaine Solution Depth: Down to and including healthy tissue, in the subcutaneous layer Percentage of wound debrided: 100 Instrument Used: 3mm curette Tissue Removed: fibrous slough Severity: Fat Layer Exposed Amount of bleeding with debridement: Mild Bleeding Controlled with: Pressure, Compression and gauze Patient tolerated procedure well - Additional Wound Wound debrided: L medial ankle Laterality: Left Wound Grade/Stage: full thickness VLU Type of Debridement: Excisional debridement Anesthesia Used: 4% Lidocaine Solution Depth: Down to and including healthy tissue, in the subcutaneous layer Percentage of wound debrided: 100 Instrument Used: 5mm curette Tissue Removed: fibrous slough Severity: Fat Layer Exposed Amount of bleeding with debridement: Mild Bleeding Controlled with: Pressure Patient tolerated procedure: Patient tolerated procedure well Assessment/Plan Active Problems Venous insufficiency (chronic) (peripheral) (Chronic) I87.2 Non-pressure chronic ulcer of right ankle with fat layer exposed (Acute) Non-pressure chronic ulcer of left ankle with fat layer exposed (Acute) Localized edema (Acute) Assessment: See diagnoses Plan: SQ/excisional debridment b/l ankle ulcers as above. Referral to vascular surgery based on venous duplex results. Pt states he is not going to schedule an appointment. Discussed with him that his wounds continue to recur due to venous insufficiency despite using compression, and he needs to see a vascular surgeon. Pt stated he understood. Pt does well with 3M 2-layer coban wraps, re-apply. Cont hydrofera blue, cont adaptic to wound bed prior to application of hydrofera blue. Monitor for redness, pus, malodor, warmth, pain, swelling as well as for N/V/F/C and go to the ED with these. Return in 1 week with me, call with questions.
--- NOTE | 2017-06-20 15:44 | PN.PCM_ITS ---
(1) Non-pressure chronic ulcer of right ankle with fat layer exposed Status: Acute Current Visit: Yes Code(s): L97.312 - Non-pressure chronic ulcer of right ankle with fat layer exposed (2) Non-pressure chronic ulcer of left ankle with fat layer exposed Status: Acute Current Visit: Yes Code(s): L97.322 - Non-pressure chronic ulcer of left ankle with fat layer exposed (3) Venous insufficiency (chronic) (peripheral) Status: Chronic Current Visit: Yes Comment: I87.2 (4) Localized edema Status: Acute Current Visit: Yes Code(s): R60.0 - Localized edema Type of Wound Date of Service: 06/20/17 Chief Complaint: R and L ankle ulcers History of Wound: This 76-year-old male presents back to [facility] for recurrent venous leg ulcerations of the left and right ankles. 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 Patient is also known to have chronic leg edema. He is drinking a protein supplementation drink daily still at this time. He denies fever, chills, nausea, vomiting, leg pain during the day. He had his venous doppler with reflux in the past, but not recently. He denies leg redness or drainage. 05/02--Improved. Vascular testing scheduled for next week. Tolerating 3M 2-layer coban wraps and hydrofera blue well. Pain improved. Denies N/V/F/C. Denies redness, pus, malodor, warmth. 05/09--Improved. Vascular testing done and reviewed. Tolerating 3M 2-layer coban wraps and hydrofera blue well. Pain improved. Denies N/V/F/C. Denies redness, pus, malodor, warmth. 05/16--Improved. Vascular testing done and reviewed. Tolerating 3M 2-layer coban wraps and hydrofera blue well. Pain improved. Denies N/V/F/C. Denies redness, pus, malodor, warmth. 05/30/17--Improved. Tolerating 3M 2-layer coban wraps and hydrofera blue well. Almost no drainge-- hydrofera blue is sticking to the ulcers, so we will add adaptic first. Pain improved. Denies N/V/F/C. Denies redness, pus, malodor, warmth. 06/06-- Improved. Tolerating 3M 2-layer coban wraps and, adaptic, hydrofera blue well. Almost no drainage. Pain improved. Denies N/V/F/C. Denies redness, pus, malodor, warmth. 06/13--Improved. Tolerating 3M 2-layer coban wraps and, adaptic, hydrofera blue well. Almost no drainage. Pain improved. Denies N/V/F/ C. Denies redness, pus, malodor, warmth. Waiting for appointment with Dr. Chapman. 06/20--Improved. Tolerating 3M 2-layer coban wraps and, adaptic, hydrofera blue well. Almost no drainage. Pain improved. Denies N/V/F/C. Denies redness, pus, malodor, warmth. Was contacted by Dr. Chapman's office, but states he cannot schedule an appointment until he deals with his eyes. Progress of Wound: Improved. Venous duplex reveals vein incompetence bilaterally--pt referred to vascular surgery but pt states he cannot schedule an appointment there for a little while due to having problems with his eyes. - Physical Exam Vital Signs Temp Pulse Resp BP 96.9 F L 66 18 150/69 H 06/20/17 14:13 06/20/17 14:13 06/20/17 14:13 06/20/17 14:13 General: Alert, Oriented x3, Cooperative, No apparent distress Extremities: Edema - improved Skin: Ulcer/ Wound - R medial and lateral ankle, L medial ankle with no erythema , no malodor, no pus, no TTP, no warmth. No clinical signs of acute bacterial infection noted. See wound/edema assessment below. Wound Measurements and Assessment EVELIA - Nurse 1 - General Ulcer Measurement Start: 05/30/17 13:37 Freq: Status: Active Protocol: Activity Type Activity Date Activity User E-Sign Co-Sign Detail Recorded Client Recorded Date Recorded By Document 06/20/17 14:13 DV [id number] 06/20/17 14:23 DV 06/20/17 14:13 Wound Center Nurse 1 [Ulcer Assessment Protocol: EVELIA.WD.LOC] #11 R Lat ankle -Combined with other wound No -Current Size (cm) - Length 0.5 -Current Size (cm) - Width 0.7 -Current Size (cm) - Depth 0.2 -Total Square Cm 0.35 -Photo Taken Yes -Tunneling No -Undermining/Tunneling No -Circular Undermining No -Classification - Thickness Full Thickness without Exposed Support Structure -Exudate Amt Medium (34-66%) -Exudate Type Serosanguineous -Wound Margin Distinct, Outline Attached -Granulation Amt None Present (0 %) -Slough/Fibrin Yes -Necrosis Amt Large (67-100%) -Necrotic Tissue Type Adherent Slough -Structure Exposed None/Limited to Skin Breakdown -Texture (Nikia-wound Skin Appearance) Assessed Scarring -Moisture (Nikia-wound Skin Appearance No Abnormality ) Assessed -Color (Nikia-wound Skin Appearance) Assessed Hemosiderin Staining -Temperature (Nikia-wound Skin No Abnormality Appearance) (Pt Warm) -Tenderness on Palpation (Nikia-wound No Skin Appearance) -Ulcer Cleansing Wound Cleanser -Foul Odor after Cleansing No -Anesthetic Used 4% Lidocaine Solution #10 R Med Ankle -Combined with other wound No -Current Size (cm) - Length 1.0 -Current Size (cm) - Width 0.4 -Current Size (cm) - Depth 0.1 -Total Square Cm 0.40 -Photo Taken Yes -Epithelialization Small 1-33% -Tunneling No -Undermining/Tunneling No -Circular Undermining No -Classification - Thickness Full Thickness without Exposed Support Structure -Exudate Amt Small (1-33%) -Exudate Type Serosanguineous -Wound Margin Distinct, Outline Attached -Granulation Amt Small (1-33%) -Granulation Quality Pale Red -Necrosis Amt Small (1-33%) -Necrotic Tissue Type Adherent Slough -Structure Exposed None/Limited to Skin Breakdown -Texture (Nikia-wound Skin Appearance) Assessed Scarring -Moisture (Nikia-wound Skin Appearance Assessed ) -Color (Nikia-wound Skin Appearance) Assessed Hemosiderin Staining -Temperature (Nikia-wound Skin No Abnormality Appearance) (Pt Warm) -Tenderness on Palpation (Nikia-wound No Skin Appearance) -Ulcer Cleansing Wound Cleanser -Foul Odor after Cleansing No -Anesthetic Used 4% Lidocaine Solution #9 L Med Ankle -Combined with other wound No -Current Size (cm) - Length 6.9 -Current Size (cm) - Width 1.7 -Current Size (cm) - Depth 0.1 -Total Square Cm 11.73 -Photo Taken Yes -Epithelialization Small 1-33% -Tunneling No -Undermining/Tunneling No -Circular Undermining No -Classification - Thickness Full Thickness without Exposed Support Structure -Exudate Amt Small (1-33%) -Exudate Type Serosanguineous -Wound Margin Distinct, Outline Attached -Granulation Amt Small (1-33%) -Granulation Quality Pale -Slough/Fibrin Yes -Necrosis Amt Medium (34-66%) -Necrotic Tissue Type Adherent Slough -Structure Exposed None/Limited to Skin Breakdown -Texture (Nikia-wound Skin Appearance) Assessed Scarring -Moisture (Nikia-wound Skin Appearance Assessed ) Weeping -Color (Nikia-wound Skin Appearance) Assessed Hemosiderin Staining -Temperature (Nikia-wound Skin No Abnormality Appearance) (Pt Warm) -Ulcer Cleansing Wound Cleanser -Foul Odor after Cleansing No -Anesthetic Used 4% Lidocaine Solution [Edema Assessment] -Lower Limb Edema Present No -Right Calf (cm) 35.0 -Right Ankle (cm) 21.5 -Left Calf (cm) 33.3 -Left Ankle (cm) 20.7 WC - Nurse 2 - General Ulcer CM Notes Start: 05/30/17 13:37 Freq: Status: Active Protocol: Activity Type Activity Date Activity User E-Sign Co-Sign Detail Recorded Client Recorded Date Recorded By Document 06/20/17 15:04 MW [id number] 06/20/17 15:05 MW 06/20/17 15:04 Wound Center Nurse 2 [Procedure/Treatment] #11 R Lat ankle -Time 15:04 -Correct Patient Yes -Correct Side, Site, Position Yes -Correct Procedure Yes -Procedure Performed Yes -Type of Procedure Debridement -Clinical Debridement Subcutaneous -Post Debridement Size (cm) - Length 0.4 -Post Debridement Size (cm) - Width 0.5 -Post Debridement Size (cm) - Depth 0.1 -Total Square Cm 0.20 -Wound/Ulcer Outcome Not Healed -Ulcer Cleansing Rinsed/ Irrigated with Saline -Foul Odor after Cleansing No -Bioengineered Tissue No -Cetacaine [place] No -Bleeding Controlled with Pressure -Treatment Response Procedure Tolerated Well #10 R Med Ankle -Time 15:04 -Correct Patient Yes -Correct Side, Site, Position Yes -Correct Procedure Yes -Procedure Performed Yes -Type of Procedure Debridement -Clinical Debridement Subcutaneous -Post Debridement Size (cm) - Length 1.0 -Post Debridement Size (cm) - Width 1.1 -Post Debridement Size (cm) - Depth 0.1 -Total Square Cm 1.10 -Wound/Ulcer Outcome Not Healed -Ulcer Cleansing Rinsed/ Irrigated with Saline -Foul Odor after Cleansing No -Bioengineered Tissue No -Cetacaine [place] No -Bleeding Controlled with Pressure -Treatment Response Procedure Tolerated Well #9 L Med Ankle -Time 15:05 -Correct Patient Yes -Correct Side, Site, Position Yes -Correct Procedure Yes -Procedure Performed Yes -Type of Procedure Debridement -Clinical Debridement Subcutaneous -Post Debridement Size (cm) - Length 4.2 -Post Debridement Size (cm) - Width 1.9 -Post Debridement Size (cm) - Depth 0.1 -Total Square Cm 7.98 -Wound/Ulcer Outcome Not Healed -Ulcer Cleansing Rinsed/ Irrigated with Saline -Foul Odor after Cleansing No -Bioengineered Tissue No -Cetacaine [place] No -Bleeding Controlled with Pressure -Treatment Response Procedure Tolerated Well [See Physician Procedure note for Specifics] Pain Scale: 0-10 Numeric [Pain] -Is Patient Pain Free? Yes Debridement Note Post-Debridement Measurements/Treatment WC - Nurse 2 - General Ulcer CM Notes Start: 05/30/17 13:37 Freq: Status: Active Protocol: Activity Type Activity Date Activity User E-Sign Co-Sign Detail Recorded Client Recorded Date Recorded By Document 05/30/17 14:11 MW [id number] 05/30/17 14:20 MW Document 06/06/17 14:37 MW [id number] 06/06/17 14:41 MW Document 06/13/17 14:53 MW [id number] 06/13/17 14:59 MW Document 06/20/17 15:04 MW [id number] 06/20/17 15:05 MW 05/30/17 06/06/17 06/13/17 14:11 14:37 14:53 Wound Center Nurse 2 #12 right anterior ankle -Time 14:19 14:37 -Correct Patient Yes Yes -Correct Side, Site, Position Yes Yes -Correct Procedure Yes Yes -Procedure Performed Yes No -Type of Procedure Debridement -Clinical Debridement Subcutaneous -Post Debridement Size (cm) - Length 2.0 0 -Post Debridement Size (cm) - Width 0.6 0 -Post Debridement Size (cm) - Depth 0.1 0 -Total Square Cm 1.20 0 -Wound/Ulcer Outcome Not Healed Healed- Epithelialized -Ulcer Cleansing Rinsed/ Rinsed/ Irrigated with Irrigated with Saline Saline -Foul Odor after Cleansing No No -Bioengineered Tissue No No -Cetacaine [place] No No -Bleeding Controlled with Pressure Pressure -Treatment Response Procedure Procedure Tolerated Well Tolerated Well #11 R [facility] ankle -Time 14:16 14:37 14:56 -Correct Patient Yes Yes Yes -Correct Side, Site, Position Yes Yes Yes -Correct Procedure Yes Yes Yes -Procedure Performed Yes Yes Yes -Type of Procedure Debridement Debridement Debridement -Clinical Debridement Subcutaneous Subcutaneous Subcutaneous -Post Debridement Size (cm) - Length 0.5 0.6 0.8 -Post Debridement Size (cm) - Width 1.0 0.6 1.2 -Post Debridement Size (cm) - Depth 0.2 0.2 0.1 -Total Square Cm 0.50 0.36 0.96 -Wound/Ulcer Outcome Not Healed Not Healed Not Healed -Ulcer Cleansing Rinsed/ Rinsed/ Rinsed/ Irrigated with Irrigated with Irrigated with Saline Saline Saline -Foul Odor after Cleansing No No No -Bioengineered Tissue No No No -Cetacaine [place] No No No -Bleeding Controlled with Pressure Pressure Pressure -Treatment Response Procedure Procedure Procedure Tolerated Well Tolerated Well Tolerated Well #10 R [facility] Ankle -Time 14:16 14:37 14:56 -Correct Patient Yes Yes Yes -Correct Side, Site, Position Yes Yes Yes -Correct Procedure Yes Yes Yes -Procedure Performed Yes Yes Yes -Type of Procedure Debridement Debridement Debridement -Clinical Debridement Subcutaneous Subcutaneous Subcutaneous -Post Debridement Size (cm) - Length 1.8 0.8 0.3 -Post Debridement Size (cm) - Width 3.5 0.5 2.0 -Post Debridement Size (cm) - Depth 0.1 0.2 0.1 -Total Square Cm 6.30 0.40 0.60 -Wound/Ulcer Outcome Not Healed Not Healed Not Healed -Ulcer Cleansing Rinsed/ Rinsed/ Rinsed/ Irrigated with Irrigated with Irrigated with Saline Saline Saline -Foul Odor after Cleansing No No No -Bioengineered Tissue No No No -Cetacaine [place] No No No -Bleeding Controlled with Pressure Pressure Pressure -Treatment Response Procedure Procedure Procedure Tolerated Well Tolerated Well Tolerated Well #9 L Med Ankle -Time 14:16 14:38 14:57 -Correct Patient Yes Yes Yes -Correct Side, Site, Position Yes Yes Yes -Correct Procedure Yes Yes Yes -Procedure Performed Yes Yes Yes -Type of Procedure Debridement Debridement Debridement -Clinical Debridement Subcutaneous Subcutaneous Subcutaneous -Post Debridement Size (cm) - Length 8.0 8.5 7.8 -Post Debridement Size (cm) - Width 3.5 2.1 2.2 -Post Debridement Size (cm) - Depth 0.1 0.1 0.1 -Total Square Cm 28.00 17.85 17.16 -Wound/Ulcer Outcome Not Healed Not Healed Not Healed -Ulcer Cleansing Rinsed/ Rinsed/ Rinsed/ Irrigated with Irrigated with Irrigated with Saline Saline Saline -Foul Odor after Cleansing No No No -Bioengineered Tissue No No No -Cetacaine [place] No No No -Bleeding Controlled with Pressure Pressure Pressure -Treatment Response Procedure Procedure Procedure Tolerated Well Tolerated Well Tolerated Well Pain Scale: 0-10 Numeric Is Patient Pain Free? Yes Yes Yes 06/20/17 15:04 Wound Center Nurse 2 #12 right anterior ankle -Time -Correct Patient -Correct Side, Site, Position -Correct Procedure -Procedure Performed -Type of Procedure -Clinical Debridement -Post Debridement Size (cm) - Length -Post Debridement Size (cm) - Width -Post Debridement Size (cm) - Depth -Total Square Cm -Wound/Ulcer Outcome -Ulcer Cleansing -Foul Odor after Cleansing -Bioengineered Tissue -Cetacaine [place] -Bleeding Controlled with -Treatment Response #11 R [facility] ankle -Time 15:04 -Correct Patient Yes -Correct Side, Site, Position Yes -Correct Procedure Yes -Procedure Performed Yes -Type of Procedure Debridement -Clinical Debridement Subcutaneous -Post Debridement Size (cm) - Length 0.4 -Post Debridement Size (cm) - Width 0.5 -Post Debridement Size (cm) - Depth 0.1 -Total Square Cm 0.20 -Wound/Ulcer Outcome Not Healed -Ulcer Cleansing Rinsed/ Irrigated with Saline -Foul Odor after Cleansing No -Bioengineered Tissue No -Cetacaine [place] No -Bleeding Controlled with Pressure -Treatment Response Procedure Tolerated Well #10 R Med Ankle -Time 15:04 -Correct Patient Yes -Correct Side, Site, Position Yes -Correct Procedure Yes -Procedure Performed Yes -Type of Procedure Debridement -Clinical Debridement Subcutaneous -Post Debridement Size (cm) - Length 1.0 -Post Debridement Size (cm) - Width 1.1 -Post Debridement Size (cm) - Depth 0.1 -Total Square Cm 1.10 -Wound/Ulcer Outcome Not Healed -Ulcer Cleansing Rinsed/ Irrigated with Saline -Foul Odor after Cleansing No -Bioengineered Tissue No -Cetacaine [place] No -Bleeding Controlled with Pressure -Treatment Response Procedure Tolerated Well #9 L Med Ankle -Time 15:05 -Correct Patient Yes -Correct Side, Site, Position Yes -Correct Procedure Yes -Procedure Performed Yes -Type of Procedure Debridement -Clinical Debridement Subcutaneous -Post Debridement Size (cm) - Length 4.2 -Post Debridement Size (cm) - Width 1.9 -Post Debridement Size (cm) - Depth 0.1 -Total Square Cm 7.98 -Wound/Ulcer Outcome Not Healed -Ulcer Cleansing Rinsed/ Irrigated with Saline -Foul Odor after Cleansing No -Bioengineered Tissue No -Cetacaine [place] No -Bleeding Controlled with Pressure -Treatment Response Procedure Tolerated Well Pain Scale: 0-10 Numeric Is Patient Pain Free? Yes Wound debrided: R lateral and medial ankle Laterality: Right Wound Grade/Stage: Full thickness VLU Type of Debridement: Excisional debridement Anesthesia Used: 4% Lidocaine Solution Depth: Down to and including healthy tissue, in the subcutaneous layer Percentage of wound debrided: 100 Instrument Used: 3mm curette Tissue Removed: fibrous slough Severity: Fat Layer Exposed Amount of bleeding with debridement: Mild Bleeding Controlled with: Pressure, Compression and gauze Patient tolerated procedure well - Additional Wound Wound debrided: L medial ankle Laterality: Left Wound Grade/Stage: full thickness VLU Type of Debridement: Excisional debridement Anesthesia Used: 4% Lidocaine Solution Depth: Down to and including healthy tissue, in the subcutaneous layer Percentage of wound debrided: 100 Instrument Used: 5mm curette Tissue Removed: fibrous slough Severity: Fat Layer Exposed Amount of bleeding with debridement: Mild Bleeding Controlled with: Pressure Patient tolerated procedure: Patient tolerated procedure well Assessment/Plan Active Problems Venous insufficiency (chronic) (peripheral) (Chronic) I87.2 Non-pressure chronic ulcer of right ankle with fat layer exposed (Acute) Non-pressure chronic ulcer of left ankle with fat layer exposed (Acute) Localized edema (Acute) Assessment: See diagnoses Plan: SQ/excisional debridment b/l ankle ulcers as above. Referral to vascular surgery based on venous duplex results. Pt states he is not going to schedule an appointment. Discussed with him that his wounds continue to recur due to venous insufficiency despite using compression, and he needs to see a vascular surgeon. Pt stated he understood. Pt does well with 3M 2-layer coban wraps, re -apply. Cont hydrofera blue, cont adaptic to wound bed prior to application of hydrofera blue. Monitor for redness, pus, malodor, warmth, pain, swelling as well as for N/V/F/C and go to the ED with these. Return in 1 week with me, call with questions.
[2017-06-27 14:07] VITALS: BP 155/75; PULSE 88; RESP 18; TEMP 36.6
--- NOTE | 2017-06-27 16:13 | PN.PCM_ITS ---
(1) Non-pressure chronic ulcer of right ankle with fat layer exposed Status: Acute Current Visit: Yes Code(s): L97.312 - Non-pressure chronic ulcer of right ankle with fat layer exposed (2) Non-pressure chronic ulcer of left ankle with fat layer exposed Status: Acute Current Visit: Yes Code(s): L97.322 - Non-pressure chronic ulcer of left ankle with fat layer exposed (3) Venous insufficiency (chronic) (peripheral) Status: Chronic Current Visit: Yes Comment: I87.2 (4) Localized edema Status: Acute Current Visit: Yes Code(s): R60.0 - Localized edema Type of Wound Date of Service: 06/27/17 Chief Complaint: R and L ankle ulcers History of Wound: This 76-year-old male presents [facility] for recurrent venous leg ulcerations of the left and right ankles. 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 Patient is also known to have chronic leg edema. He is drinking a protein supplementation drink daily still at this time. He denies fever, chills, nausea, vomiting, leg pain during the day. He had his venous doppler with reflux in the past, but not recently. He denies leg redness or drainage. 05/02--Improved. Vascular testing scheduled for next week. Tolerating 3M 2-layer coban wraps and hydrofera blue well. Pain improved. Denies N/V/F/C. Denies redness, pus, malodor, warmth. 05/09--Improved. Vascular testing done and reviewed. Tolerating 3M 2-layer coban wraps and hydrofera blue well. Pain improved. Denies N/V/F/C. Denies redness, pus, malodor, warmth. 05/16--Improved. Vascular testing done and reviewed. Tolerating 3M 2-layer coban wraps and hydrofera blue well. Pain improved. Denies N/V/F/C. Denies redness, pus, malodor, warmth. 05/30/17--Improved. Tolerating 3M 2-layer coban wraps and hydrofera blue well. Almost no drainge-- hydrofera blue is sticking to the ulcers, so we will add adaptic first. Pain improved. Denies N/V/F/C. Denies redness, pus, malodor, warmth. 06/06-- Improved. Tolerating 3M 2-layer coban wraps and, adaptic, hydrofera blue well. Almost no drainage. Pain improved. Denies N/V/F/C. Denies redness, pus, malodor, warmth. 06/13--Improved. Tolerating 3M 2-layer coban wraps and, adaptic, hydrofera blue well. Almost no drainage. Pain improved. Denies N/V/F/ C. Denies redness, pus, malodor, warmth. Waiting for appointment with Dr. Chapman. 06/20--Improved. Tolerating 3M 2-layer coban wraps and, adaptic, hydrofera blue well. Almost no drainage. Pain improved. Denies N/V/F/C. Denies redness, pus, malodor, warmth. Was contacted by Dr. Chapman's office, but states he cannot schedule an appointment until he deals with his eyes. --Improved. Tolerating 3M 2-layer coban wraps and, adaptic, hydrofera blue well. Almost no drainage. Pain improved. Denies N/V/F/C. Denies redness, pus , malodor, warmth. R medial ulcer healed. Progress of Wound: Improved. Venous duplex reveals vein incompetence bilaterally--pt referred to vascular surgery but pt states he cannot schedule an appointment there for a little while due to having problems with his eyes. R medial ulcer healed. - Physical Exam Vital Signs Temp Pulse Resp BP 98 F 88 18 155/75 H 06/27/17 14:07 06/27/17 14:07 06/27/17 14:07 06/27/17 14:07 General: Alert, Oriented x3, Cooperative, No apparent distress Extremities: Edema Skin: Ulcer/ Wound - R lateral ankle, L medial ankle with no erythema, no pus, no malodor, no increased warmth, no TTP of wound or josie-wound area. No clinical signs of acute bacterial infection noted. See nurse's wound assessment. Wound Measurements and Assessment WC - Nurse 1 - General Ulcer Measurement Start: 05/30/17 13:37 Freq: Status: Active Protocol: Activity Type Activity Date Activity User E-Sign Co-Sign Detail Recorded Client Recorded Date Recorded By Document 06/27/17 14:07 DL [id number] 06/27/17 14:15 DL 06/27/17 14:07 Wound Center Nurse 1 [Ulcer Assessment Protocol: WC.WD.LOC] #11 R Lat ankle -Current Size (cm) - Length 0.4 -Current Size (cm) - Width 0.3 -Current Size (cm) - Depth 0.2 -Total Square Cm 0.12 -Photo Taken No -Exudate Amt None Present (0 %) -Wound Margin Distinct, Outline Attached -Granulation Amt Small (1-33%) -Granulation Quality [place] -Necrosis Amt Small (1-33%) -Necrotic Tissue Type Adherent Slough -Structure Exposed N/A -Texture (Josie-wound Skin Appearance) Scarring -Moisture (Josie-wound Skin Appearance No Abnormality ) -Color (Josie-wound Skin Appearance) No Abnormality Hemosiderin Staining -Temperature (Josie-wound Skin No Abnormality Appearance) (Pt Warm) -Ulcer Cleansing Wound Cleanser -Foul Odor after Cleansing No -Anesthetic Used 4% Lidocaine Solution #10 R Med Ankle -Current Size (cm) - Length 0.1 -Current Size (cm) - Width 0.1 -Current Size (cm) - Depth 0.1 -Total Square Cm 0.01 -Photo Taken No -Exudate Amt None Present (0 %) -Wound Margin Flat & Intact -Granulation Amt Large (67-100%) -Granulation Quality [place] -Necrosis Amt None Present (0 %) -Structure Exposed N/A -Texture (Josie-wound Skin Appearance) Scarring -Moisture (Josie-wound Skin Appearance Dry/Scaly ) -Color (Josie-wound Skin Appearance) Hemosiderin Staining -Temperature (Josie-wound Skin No Abnormality Appearance) (Pt Warm) -Tenderness on Palpation (Josie-wound No Skin Appearance) -Ulcer Cleansing Wound Cleanser -Foul Odor after Cleansing No -Anesthetic Used 4% Lidocaine Solution #9 L Med Ankle -Current Size (cm) - Length 7.3 -Current Size (cm) - Width 1.5 -Current Size (cm) - Depth 0.1 -Total Square Cm 10.95 -Photo Taken No -Exudate Amt Small (1-33%) -Exudate Type Serosanguineous -Wound Margin Thickened -Granulation Amt Medium (34-66%) -Granulation Quality Pale [place] -Necrosis Amt Medium (34-66%) -Necrotic Tissue Type Adherent Slough -Structure Exposed N/A -Texture (Josie-wound Skin Appearance) Scarring -Moisture (Josie-wound Skin Appearance Dry/Scaly ) -Color (Josie-wound Skin Appearance) Hemosiderin Staining -Temperature (Josie-wound Skin No Abnormality Appearance) (Pt Warm) -Tenderness on Palpation (Josie-wound No Skin Appearance) -Ulcer Cleansing Wound Cleanser -Foul Odor after Cleansing No -Anesthetic Used 4% Lidocaine Solution [Edema Assessment] -Right Calf (cm) 34.2 -Right Ankle (cm) 20.4 -Left Calf (cm) 31.5 -Left Ankle (cm) 19 WC - Nurse 2 - General Ulcer CM Notes Start: 05/30/17 13:37 Freq: Status: Active Protocol: Activity Type Activity Date Activity User E-Sign Co-Sign Detail Recorded Client Recorded Date Recorded By Document 06/27/17 14:48 MW [id number] 06/27/17 14:50 MW 06/27/17 14:48 Wound Center Nurse 2 [Procedure/Treatment] #11 R Lat ankle -Time 14:49 -Correct Patient Yes -Correct Side, Site, Position Yes -Correct Procedure Yes -Procedure Performed Yes -Type of Procedure Debridement -Clinical Debridement Subcutaneous -Post Debridement Size (cm) - Length 0.5 -Post Debridement Size (cm) - Width 0.3 -Post Debridement Size (cm) - Depth 0.1 -Total Square Cm 0.15 -Wound/Ulcer Outcome Not Healed -Ulcer Cleansing Rinsed/ Irrigated with Saline -Foul Odor after Cleansing No -Bioengineered Tissue No -Cetacaine [place] No -Bleeding Controlled with Pressure -Treatment Response Procedure Tolerated Well #10 R Med Ankle -Time 14:49 -Correct Patient Yes -Correct Side, Site, Position Yes -Correct Procedure Yes -Procedure Performed No -Post Debridement Size (cm) - Length 0 -Post Debridement Size (cm) - Width 0 -Post Debridement Size (cm) - Depth 0 -Total Square Cm 0 -Wound/Ulcer Outcome Healed- Epithelialized #9 L Med Ankle -Time 14:50 -Correct Patient Yes -Correct Side, Site, Position Yes -Correct Procedure Yes -Procedure Performed Yes -Type of Procedure Debridement -Clinical Debridement Subcutaneous -Post Debridement Size (cm) - Length 7.3 -Post Debridement Size (cm) - Width 1.6 -Post Debridement Size (cm) - Depth 0.1 -Total Square Cm 11.68 -Wound/Ulcer Outcome Not Healed -Ulcer Cleansing Rinsed/ Irrigated with Saline -Foul Odor after Cleansing No -Bioengineered Tissue No -Cetacaine [place] No -Bleeding Controlled with Pressure -Treatment Response Procedure Tolerated Well [See Physician Procedure note for Specifics] Pain Scale: 0-10 Numeric [Pain] -Is Patient Pain Free? Yes Debridement Note Post-Debridement Measurements/Treatment WC - Nurse 2 - General Ulcer CM Notes Start: 05/30/17 13:37 Freq: Status: Active Protocol: Activity Type Activity Date Activity User E-Sign Co-Sign Detail Recorded Client Recorded Date Recorded By Document 05/30/17 14:11 MW [id number] 05/30/17 14:20 MW Document 06/06/17 14:37 MW [id number] 06/06/17 14:41 MW Document 06/13/17 14:53 MW [id number] 06/13/17 14:59 MW Document 06/20/17 15:04 MW [id number] 06/20/17 15:05 MW Document 06/27/17 14:48 MW [id number] 06/27/17 14:50 MW 05/30/17 06/06/17 06/13/17 14:11 14:37 14:53 Wound Center Nurse 2 #12 right anterior ankle -Time 14:19 14:37 -Correct Patient Yes Yes -Correct Side, Site, Position Yes Yes -Correct Procedure Yes Yes -Procedure Performed Yes No -Type of Procedure Debridement -Clinical Debridement Subcutaneous -Post Debridement Size (cm) - Length 2.0 0 -Post Debridement Size (cm) - Width 0.6 0 -Post Debridement Size (cm) - Depth 0.1 0 -Total Square Cm 1.20 0 -Wound/Ulcer Outcome Not Healed Healed- Epithelialized -Ulcer Cleansing Rinsed/ Rinsed/ Irrigated with Irrigated with Saline Saline -Foul Odor after Cleansing No No -Bioengineered Tissue No No -Cetacaine [place] No No -Bleeding Controlled with Pressure Pressure -Treatment Response Procedure Procedure Tolerated Well Tolerated Well #11 R Lat ankle -Time 14:16 14:37 14:56 -Correct Patient Yes Yes Yes -Correct Side, Site, Position Yes Yes Yes -Correct Procedure Yes Yes Yes -Procedure Performed Yes Yes Yes -Type of Procedure Debridement Debridement Debridement -Clinical Debridement Subcutaneous Subcutaneous Subcutaneous -Post Debridement Size (cm) - Length 0.5 0.6 0.8 -Post Debridement Size (cm) - Width 1.0 0.6 1.2 -Post Debridement Size (cm) - Depth 0.2 0.2 0.1 -Total Square Cm 0.50 0.36 0.96 -Wound/Ulcer Outcome Not Healed Not Healed Not Healed -Ulcer Cleansing Rinsed/ Rinsed/ Rinsed/ Irrigated with Irrigated with Irrigated with Saline Saline Saline -Foul Odor after Cleansing No No No -Bioengineered Tissue No No No -Cetacaine [place] No No No -Bleeding Controlled with Pressure Pressure Pressure -Treatment Response Procedure Procedure Procedure Tolerated Well Tolerated Well Tolerated Well #10 R Med Ankle -Time 14:16 14:37 14:56 -Correct Patient Yes Yes Yes -Correct Side, Site, Position Yes Yes Yes -Correct Procedure Yes Yes Yes -Procedure Performed Yes Yes Yes -Type of Procedure Debridement Debridement Debridement -Clinical Debridement Subcutaneous Subcutaneous Subcutaneous -Post Debridement Size (cm) - Length 1.8 0.8 0.3 -Post Debridement Size (cm) - Width 3.5 0.5 2.0 -Post Debridement Size (cm) - Depth 0.1 0.2 0.1 -Total Square Cm 6.30 0.40 0.60 -Wound/Ulcer Outcome Not Healed Not Healed Not Healed -Ulcer Cleansing Rinsed/ Rinsed/ Rinsed/ Irrigated with Irrigated with Irrigated with Saline Saline Saline -Foul Odor after Cleansing No No No -Bioengineered Tissue No No No -Cetacaine [place] No No No -Bleeding Controlled with Pressure Pressure Pressure -Treatment Response Procedure Procedure Procedure Tolerated Well Tolerated Well Tolerated Well #9 L Med Ankle -Time 14:16 14:38 14:57 -Correct Patient Yes Yes Yes -Correct Side, Site, Position Yes Yes Yes -Correct Procedure Yes Yes Yes -Procedure Performed Yes Yes Yes -Type of Procedure Debridement Debridement Debridement -Clinical Debridement Subcutaneous Subcutaneous Subcutaneous -Post Debridement Size (cm) - Length 8.0 8.5 7.8 -Post Debridement Size (cm) - Width 3.5 2.1 2.2 -Post Debridement Size (cm) - Depth 0.1 0.1 0.1 -Total Square Cm 28.00 17.85 17.16 -Wound/Ulcer Outcome Not Healed Not Healed Not Healed -Ulcer Cleansing Rinsed/ Rinsed/ Rinsed/ Irrigated with Irrigated with Irrigated with Saline Saline Saline -Foul Odor after Cleansing No No No -Bioengineered Tissue No No No -Cetacaine [place] No No No -Bleeding Controlled with Pressure Pressure Pressure -Treatment Response Procedure Procedure Procedure Tolerated Well Tolerated Well Tolerated Well Pain Scale: 0-10 Numeric Is Patient Pain Free? Yes Yes Yes 06/20/17 06/27/17 15:04 14:48 Wound Center Nurse 2 #12 right anterior ankle -Time -Correct Patient -Correct Side, Site, Position -Correct Procedure -Procedure Performed -Type of Procedure -Clinical Debridement -Post Debridement Size (cm) - Length -Post Debridement Size (cm) - Width -Post Debridement Size (cm) - Depth -Total Square Cm -Wound/Ulcer Outcome -Ulcer Cleansing -Foul Odor after Cleansing -Bioengineered Tissue -Cetacaine [place] -Bleeding Controlled with -Treatment Response #11 R [facility] ankle -Time 15:04 14:49 -Correct Patient Yes Yes -Correct Side, Site, Position Yes Yes -Correct Procedure Yes Yes -Procedure Performed Yes Yes -Type of Procedure Debridement Debridement -Clinical Debridement Subcutaneous Subcutaneous -Post Debridement Size (cm) - Length 0.4 0.5 -Post Debridement Size (cm) - Width 0.5 0.3 -Post Debridement Size (cm) - Depth 0.1 0.1 -Total Square Cm 0.20 0.15 -Wound/Ulcer Outcome Not Healed Not Healed -Ulcer Cleansing Rinsed/ Rinsed/ Irrigated with Irrigated with Saline Saline -Foul Odor after Cleansing No No -Bioengineered Tissue No No -Cetacaine [place] No No -Bleeding Controlled with Pressure Pressure -Treatment Response Procedure Procedure Tolerated Well Tolerated Well #10 R Med Ankle -Time 15:04 14:49 -Correct Patient Yes Yes -Correct Side, Site, Position Yes Yes -Correct Procedure Yes Yes -Procedure Performed Yes No -Type of Procedure Debridement -Clinical Debridement Subcutaneous -Post Debridement Size (cm) - Length 1.0 0 -Post Debridement Size (cm) - Width 1.1 0 -Post Debridement Size (cm) - Depth 0.1 0 -Total Square Cm 1.10 0 -Wound/Ulcer Outcome Not Healed Healed- Epithelialized -Ulcer Cleansing Rinsed/ Irrigated with Saline -Foul Odor after Cleansing No -Bioengineered Tissue No -Cetacaine [place] No -Bleeding Controlled with Pressure -Treatment Response Procedure Tolerated Well #9 L Med Ankle -Time 15:05 14:50 -Correct Patient Yes Yes -Correct Side, Site, Position Yes Yes -Correct Procedure Yes Yes -Procedure Performed Yes Yes -Type of Procedure Debridement Debridement -Clinical Debridement Subcutaneous Subcutaneous -Post Debridement Size (cm) - Length 4.2 7.3 -Post Debridement Size (cm) - Width 1.9 1.6 -Post Debridement Size (cm) - Depth 0.1 0.1 -Total Square Cm 7.98 11.68 -Wound/Ulcer Outcome Not Healed Not Healed -Ulcer Cleansing Rinsed/ Rinsed/ Irrigated with Irrigated with Saline Saline -Foul Odor after Cleansing No No -Bioengineered Tissue No No -Cetacaine [place] No No -Bleeding Controlled with Pressure Pressure -Treatment Response Procedure Procedure Tolerated Well Tolerated Well Pain Scale: 0-10 Numeric Is Patient Pain Free? Yes Yes Wound debrided: R lateral ankle Laterality: Right Wound Grade/Stage: full thickness VLU Type of Debridement: Excisional debridement Anesthesia Used: 4% Lidocaine Solution Depth: Down to and including healthy tissue, in the subcutaneous layer Percentage of wound debrided: 100 Instrument Used: 3mm curette Tissue Removed: fibrous slough Severity: Fat Layer Exposed Amount of bleeding with debridement: Mild Bleeding Controlled with: Pressure, Compression and gauze Patient tolerated procedure well - Additional Wound Wound debrided: L medial ankle Laterality: Left Wound Grade/Stage: full thickness VLU Type of Debridement: Excisional debridement Anesthesia Used: 4% Lidocaine Solution Depth: Down to and including healthy tissue, in the subcutaneous layer Percentage of wound debrided: 100 Instrument Used: 3mm curette Tissue Removed: fibrous slough Severity: Fat Layer Exposed Amount of bleeding with debridement: Mild Bleeding Controlled with: Pressure, Compression and gauze Patient tolerated procedure: Patient tolerated procedure well Assessment/Plan Active Problems Venous insufficiency (chronic) (peripheral) (Chronic) I87.2 Non-pressure chronic ulcer of right ankle with fat layer exposed (Acute) Non-pressure chronic ulcer of left ankle with fat layer exposed (Acute) Localized edema (Acute) Assessment: See diagnoses Plan: SQ/excisional debridment b/l ankle ulcers as above. Referral to vascular surgery based on venous duplex results. Pt states he is not going to schedule an appointment. Discussed with him that his wounds continue to recur due to venous insufficiency despite using compression, and he needs to see a vascular surgeon. Pt stated he understood. Pt does well with 3M 2-layer coban wraps, re -apply. Cont hydrofera blue, cont adaptic to wound bed prior to application of hydrofera blue. Monitor for redness, pus, malodor, warmth, pain, swelling as well as for N/V/F/C and go to the ED with these. Return in 1 week with me, call with questions.
== END 2017-06-28 23:59 ==
LOC: WC 14:15
PROVIDERS: Family Provider Family Medicine; PCP Family Medicine; Visit Provider Podiatrist Foot & Ankle Surgery
DX: I87.013 Postthrombotic syndrome with ulcer of bilateral lower extremity (principal); L97.322 Non-pressure chronic ulcer of left ankle with fat layer exposed; L97.312 Non-pressure chronic ulcer of right ankle with fat layer exposed; R60.0 Localized edema; Z86.718 Personal history of other venous thrombosis and embolism
CPT/HCPCS: 11042; 11045; 29581

== ENCOUNTER 2017-07-25 14:30 | Outpatient (RCR) | payer MEDICARE, SELFPAY ==
[2017-06-27 14:07] VITALS: BP 155/75
[2017-06-29 00:49] VITALS: PULSE 88; RESP 18; TEMP 36.6
[2017-07-04 14:12] VITALS: BP 109/66; PULSE 70; TEMP 36.7
--- NOTE | 2017-07-04 14:38 | PCM.WC.PN ---
(1) Non-pressure chronic ulcer of right ankle with fat layer exposed Status: Acute Current Visit: Yes Code(s): L97.312 - Non-pressure chronic ulcer of right ankle with fat layer exposed (2) Non-pressure chronic ulcer of left ankle with fat layer exposed Status: Acute Current Visit: Yes Code(s): L97.322 - Non-pressure chronic ulcer of left ankle with fat layer exposed (3) Venous insufficiency (chronic) (peripheral) Status: Chronic Current Visit: Yes Comment: I87.2 (4) Localized edema Status: Chronic Current Visit: Yes Code(s): R60.0 - Localized edema Type of Wound Date of Service: 07/04/17 Chief Complaint: R and L ankle ulcers History of Wound: This 76-year-old male presents back to [facility] for recurrent venous leg ulcerations of the left and right ankles. 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 Patient is also known to have chronic leg edema. He is drinking a protein supplementation drink daily still at this time. He denies fever, chills, nausea, vomiting, leg pain during the day. He had his venous doppler with reflux in the past, but not recently. He denies leg redness or drainage. 05/02--Improved. Vascular testing scheduled for next week. Tolerating 3M 2-layer coban wraps and hydrofera blue well. Pain improved. Denies N/V/F/C. Denies redness, pus, malodor, warmth. 05/09--Improved. Vascular testing done and reviewed. Tolerating 3M 2-layer coban wraps and hydrofera blue well. Pain improved. Denies N/V/F/C. Denies redness, pus, malodor, warmth. 05/16--Improved. Vascular testing done and reviewed. Tolerating 3M 2-layer coban wraps and hydrofera blue well. Pain improved. Denies N/V/F/C. Denies redness, pus, malodor, warmth. 05/30/17--Improved. Tolerating 3M 2-layer coban wraps and hydrofera blue well. Almost no drainge--hydrofera blue is sticking to the ulcers, so we will add adaptic first. Pain improved. Denies N/V/F/C. Denies redness, pus, malodor, warmth. 06/06--Improved. Tolerating 3M 2-layer coban wraps and, adaptic, hydrofera blue well. Almost no drainage. Pain improved. Denies N/V/F/C. Denies redness, pus, malodor, warmth. 06/13--Improved. Tolerating 3M 2-layer coban wraps and, adaptic, hydrofera blue well. Almost no drainage. Pain improved. Denies N/V/F/C. Denies redness, pus, malodor, warmth. Waiting for appointment with Dr. Chapman. 06/20--Improved. Tolerating 3M 2-layer coban wraps and, adaptic, hydrofera blue well. Almost no drainage. Pain improved. Denies N/V/F/C. Denies redness, pus, malodor, warmth. Was contacted by Dr. Chapman's office, but states he cannot schedule an appointment until he deals with his eyes. 06/27--Improved. Tolerating 3M 2-layer coban wraps and, adaptic, hydrofera blue well. Almost no drainage. Pain improved. Denies N/V/F/C. Denies redness, pus, malodor, warmth. R medial ulcer healed. 07/04--Improved. Tolerating 3M 2-layer coban wraps and, adaptic, hydrofera blue well. Almost no drainage. Pain improved. Denies N/V/F/C. Denies redness, pus, malodor, warmth. R medial ulcer remains healed. Progress of Wound: Improved. Venous duplex reveals vein incompetence bilaterally--pt referred to vascular surgery but pt states he cannot schedule an appointment there for a little while due to having problems with his eyes. R medial ulcer remains healed. - Physical Exam Vital Signs Temp Pulse Resp BP 98.0 F 70 18 109/66 07/04/17 14:12 07/04/17 14:12 06/29/17 00:49 07/04/17 14:12 General: Alert, Oriented x3, Cooperative, No apparent distress Extremities: Edema - improved with 3M 2-layer coban wraps Skin: Ulcer/ Wound - R lateral ankle, L medial ankle with no erythema, no malodor, no pus, no calor, no TTP. No clinical signs of acute bacterial infection noted. See wound/edema assessment below. Wound Measurements and Assessment - Nurse 1 - General Ulcer Measurement Start: 07/04/17 14:11 Freq: Status: Active Protocol: Activity Type Activity Date Activity User E-Sign Co-Sign Detail Recorded Client Recorded Date Recorded By Document 07/04/17 14:12 DV [id number] 07/04/17 14:15 DV 07/04/17 14:12 Wound Center Nurse 1 [Ulcer Assessment Protocol: WC.WD.LOC] #11 R Lat ankle -Combined with other wound No -Current Size (cm) - Length 0.1 -Current Size (cm) - Width 0.2 -Current Size (cm) - Depth 0.2 -Total Square Cm 0.02 -Photo Taken No -Epithelialization Small 1-33% -Tunneling No -Undermining/Tunneling No -Circular Undermining No -Classification - Thickness Full Thickness without Exposed Support Structure -Exudate Amt None Present (0 %) -Wound Margin Distinct, Outline Attached -Granulation Amt None Present (0 %) -Granulation Quality N/A -Slough/Fibrin Yes -Necrosis Amt Small (1-33%) -Necrotic Tissue Type Adherent Slough -Structure Exposed None/Limited to Skin Breakdown -Texture (Nikia-wound Skin Appearance) No Abnormality Assessed -Moisture (Nikia-wound Skin Appearance No Abnormality ) Assessed -Color (Nikia-wound Skin Appearance) No Abnormality Assessed -Temperature (Nikia-wound Skin No Abnormality Appearance) (Pt Warm) -Tenderness on Palpation (Nikia-wound No Skin Appearance) -Ulcer Cleansing Wound Cleanser -Foul Odor after Cleansing No -Anesthetic Used 4% Lidocaine Solution #9 L Med Ankle -Combined with other wound No -Current Size (cm) - Length 2.5 -Current Size (cm) - Width 1.5 -Current Size (cm) - Depth 0.1 -Total Square Cm 3.75 -Photo Taken No -Epithelialization Small 1-33% -Tunneling No -Undermining/Tunneling No -Circular Undermining No -Classification - Thickness Full Thickness without Exposed Support Structure -Exudate Amt Small (1-33%) -Exudate Type Serosanguineous -Wound Margin Distinct, Outline Attached -Granulation Amt Small (1-33%) -Granulation Quality Red -Slough/Fibrin Yes -Necrosis Amt Medium (34-66%) -Necrotic Tissue Type Adherent Slough -Structure Exposed None/Limited to Skin Breakdown -Texture (Nikia-wound Skin Appearance) Assessed Scarring -Moisture (Nikia-wound Skin Appearance No Abnormality ) Assessed Dry/Scaly -Color (Nikia-wound Skin Appearance) No Abnormality Assessed -Temperature (Nikia-wound Skin No Abnormality Appearance) (Pt Warm) -Ulcer Cleansing Wound Cleanser -Foul Odor after Cleansing No -Anesthetic Used 4% Lidocaine Solution WC - Nurse 2 - General Ulcer CM Notes Start: 07/04/17 14:11 Freq: Status: Active Protocol: Activity Type Activity Date Activity User E-Sign Co-Sign Detail Recorded Client Recorded Date Recorded By Document 07/04/17 14:21 MW [id number] 07/04/17 14:22 MW 07/04/17 14:21 Wound Center Nurse 2 [Procedure/Treatment] #11 R Lat ankle -Time 14:21 -Correct Patient Yes -Correct Side, Site, Position Yes -Correct Procedure Yes -Procedure Performed Yes -Type of Procedure Debridement -Clinical Debridement Subcutaneous -Post Debridement Size (cm) - Length 0.5 -Post Debridement Size (cm) - Width 0.4 -Post Debridement Size (cm) - Depth 0.1 -Total Square Cm 0.20 -Wound/Ulcer Outcome Not Healed -Ulcer Cleansing Rinsed/ Irrigated with Saline -Foul Odor after Cleansing No -Bioengineered Tissue No -Bleeding Controlled with Pressure -Treatment Response Procedure Tolerated Well #9 L Med Ankle -Time 14:22 -Correct Patient Yes -Correct Side, Site, Position Yes -Correct Procedure Yes -Procedure Performed Yes -Type of Procedure Debridement -Clinical Debridement Subcutaneous -Post Debridement Size (cm) - Length 2.8 -Post Debridement Size (cm) - Width 1.5 -Post Debridement Size (cm) - Depth 0.1 -Total Square Cm 4.20 -Wound/Ulcer Outcome Not Healed -Ulcer Cleansing Rinsed/ Irrigated with Saline -Foul Odor after Cleansing No -Bioengineered Tissue No -Bleeding Controlled with Pressure -Treatment Response Procedure Tolerated Well [See Physician Procedure note for Specifics] Pain Scale: 0-10 Numeric [Pain] -Is Patient Pain Free? Yes Debridement Note Post-Debridement Measurements/Treatment WC - Nurse 2 - General Ulcer CM Notes Start: 07/04/17 14:11 Freq: Status: Active Protocol: Activity Type Activity Date Activity User E-Sign Co-Sign Detail Recorded Client Recorded Date Recorded By Document 07/04/17 14:21 MW [id number] 07/04/17 14:22 MW 07/04/17 14:21 Wound Center Nurse 2 #11 R Lat ankle -Time 14:21 -Correct Patient Yes -Correct Side, Site, Position Yes -Correct Procedure Yes -Procedure Performed Yes -Type of Procedure Debridement -Clinical Debridement Subcutaneous -Post Debridement Size (cm) - Length 0.5 -Post Debridement Size (cm) - Width 0.4 -Post Debridement Size (cm) - Depth 0.1 -Total Square Cm 0.20 -Wound/Ulcer Outcome Not Healed -Ulcer Cleansing Rinsed/ Irrigated with Saline -Foul Odor after Cleansing No -Bioengineered Tissue No -Bleeding Controlled with Pressure -Treatment Response Procedure Tolerated Well #9 L Med Ankle -Time 14:22 -Correct Patient Yes -Correct Side, Site, Position Yes -Correct Procedure Yes -Procedure Performed Yes -Type of Procedure Debridement -Clinical Debridement Subcutaneous -Post Debridement Size (cm) - Length 2.8 -Post Debridement Size (cm) - Width 1.5 -Post Debridement Size (cm) - Depth 0.1 -Total Square Cm 4.20 -Wound/Ulcer Outcome Not Healed -Ulcer Cleansing Rinsed/ Irrigated with Saline -Foul Odor after Cleansing No -Bioengineered Tissue No -Bleeding Controlled with Pressure -Treatment Response Procedure Tolerated Well Pain Scale: 0-10 Numeric Is Patient Pain Free? Yes Wound debrided: R lateral ankle Laterality: Right Wound Grade/Stage: full thickness VLU Type of Debridement: Excisional debridement Anesthesia Used: 4% Lidocaine Solution Depth: Down to and including healthy tissue, in the subcutaneous layer Percentage of wound debrided: 100 Instrument Used: 3mm curette Tissue Removed: fibrous slough Severity: Fat Layer Exposed Amount of bleeding with debridement: Mild Bleeding Controlled with: Pressure, Compression and gauze Patient tolerated procedure well - Additional Wound Wound debrided: L medial ankle Laterality: Left Wound Grade/Stage: full thickness VLU Type of Debridement: Excisional debridement Anesthesia Used: 4% Lidocaine Solution Depth: Down to and including healthy tissue, in the subcutaneous layer Percentage of wound debrided: 100 Instrument Used: 3mm curette Tissue Removed: fibrous slough Severity: Fat Layer Exposed Amount of bleeding with debridement: Mild Bleeding Controlled with: Pressure, Compression and gauze Patient tolerated procedure: Patient tolerated procedure well Assessment/Plan Active Problems Venous insufficiency (chronic) (peripheral) (Chronic) I87.2 Non-pressure chronic ulcer of right ankle with fat layer exposed (Acute) Non-pressure chronic ulcer of left ankle with fat layer exposed (Acute) Localized edema (Chronic) Assessment: See diagnoses Plan: SQ/excisional debridment b/l ankle ulcers as above. Referral to vascular surgery placed previously based on venous duplex results. Pt states he is not going to schedule an appointment. Discussed with him again that his wounds continue to recur due to venous insufficiency despite using compression, and he needs to see a vascular surgeon. Pt stated he understood. Pt does well with 3M 2-layer coban wraps, re-apply. Cont hydrofera blue, cont adaptic to wound bed prior to application of hydrofera blue. Monitor for redness, pus, malodor, warmth, pain, swelling as well as for N/V/F/C and go to the ED with these. Return in 1 week with me, call with questions.
[2017-07-11 14:08] VITALS: BP 143/75; PULSE 78; RESP 18; TEMP 36.3
--- NOTE | 2017-07-11 14:40 | PN.PCM_ITS ---
(1) Non-pressure chronic ulcer of right ankle with fat layer exposed Status: Acute Current Visit: Yes Code(s): L97.312 - Non-pressure chronic ulcer of right ankle with fat layer exposed (2) Non-pressure chronic ulcer of left ankle with fat layer exposed Status: Acute Current Visit: Yes Code(s): L97.322 - Non-pressure chronic ulcer of left ankle with fat layer exposed (3) Venous insufficiency (chronic) (peripheral) Status: Chronic Current Visit: Yes Comment: I87.2 (4) Localized edema Status: Chronic Current Visit: Yes Code(s): R60.0 - Localized edema Type of Wound Date of Service: 07/11/17 Chief Complaint: R and L ankle ulcers History of Wound: This 76-year-old male presents back to the Wound Center for recurrent venous leg ulcerations of the left and right ankles. 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 Patient is also known to have chronic leg edema. He is drinking a protein supplementation drink daily still at this time. He denies fever, chills, nausea, vomiting, leg pain during the day. He had his venous doppler with reflux in the past, but not recently. He denies leg redness or drainage. 05/02--Improved. Vascular testing scheduled for next week. Tolerating 3M 2-layer coban wraps and hydrofera blue well. Pain improved. Denies N/V/F/C. Denies redness, pus, malodor, warmth. 05/09--Improved. Vascular testing done and reviewed. Tolerating 3M 2-layer coban wraps and hydrofera blue well. Pain improved. Denies N/V/F/C. Denies redness, pus, malodor, warmth. 05/16--Improved. Vascular testing done and reviewed. Tolerating 3M 2-layer coban wraps and hydrofera blue well. Pain improved. Denies N/V/F/C. Denies redness, pus, malodor, warmth. 05/30/17--Improved. Tolerating 3M 2-layer coban wraps and hydrofera blue well. Almost no drainge-- hydrofera blue is sticking to the ulcers, so we will add adaptic first. Pain improved. Denies N/V/F/C. Denies redness, pus, malodor, warmth. 06/06-- Improved. Tolerating 3M 2-layer coban wraps and, adaptic, hydrofera blue well. Almost no drainage. Pain improved. Denies N/V/F/C. Denies redness, pus, malodor, warmth. 06/13--Improved. Tolerating 3M 2-layer coban wraps and, adaptic, hydrofera blue well. Almost no drainage. Pain improved. Denies N/V/F/ C. Denies redness, pus, malodor, warmth. Waiting for appointment with Dr. Chapman. 06/20--Improved. Tolerating 3M 2-layer coban wraps and, adaptic, hydrofera blue well. Almost no drainage. Pain improved. Denies N/V/F/C. Denies redness, pus, malodor, warmth. Was contacted by Dr. Chapman's office, but states he cannot schedule an appointment until he deals with his eyes. --Improved. Tolerating 3M 2-layer coban wraps and, adaptic, hydrofera blue well. Almost no drainage. Pain improved. Denies N/V/F/C. Denies redness, pus , malodor, warmth. R medial ulcer healed. 07/04--Improved. Tolerating 3M 2- layer coban wraps and, adaptic, hydrofera blue well. Almost no drainage. Pain improved. Denies N/V/F/C. Denies redness, pus, malodor, warmth. R medial ulcer remains healed. 07/11--Improved. Tolerating 3M 2-layer coban wraps and, adaptic, hydrofera blue well. Almost no drainage. Pain improved. Denies N/V/F/ C. Denies redness, pus, malodor, warmth. R medial ulcer remains healed. Progress of Wound: Improved. Venous duplex reveals vein incompetence bilaterally--pt referred to vascular surgery but pt states he cannot schedule an appointment there for a little while due to having problems with his eyes. R medial ulcer remains healed. - Physical Exam Vital Signs Temp Pulse Resp BP 97.3 F L 78 18 143/75 H 07/11/17 14:08 07/11/17 14:08 07/11/17 14:08 07/11/17 14:08 General: Alert, Oriented x3, Cooperative, No apparent distress Extremities: Edema - improved Skin: Ulcer/ Wound - R lateral ankle, L medial ankle with no surrounding erythema, no malodor, no purulent drainage, no calor, no TTP of ulcer or josie- ulcer area. No clinical signs of acute bacterial infection noted. See nurse's wound assessment. Wound Measurements and Assessment WC - Nurse 1 - General Ulcer Measurement Start: 07/04/17 14:11 Freq: Status: Active Protocol: Activity Type Activity Date Activity User E-Sign Co-Sign Detail Recorded Client Recorded Date Recorded By Document 07/11/17 14:08 DL [id number] 07/11/17 14:21 DL 07/11/17 14:08 Wound Center Nurse 1 [Ulcer Assessment Protocol: WC.WD.LOC] #11 R Lat ankle -Current Size (cm) - Length 0.2 -Current Size (cm) - Width 0.2 -Current Size (cm) - Depth 0.1 -Total Square Cm 0.04 -Photo Taken No -Exudate Amt None Present (0 %) -Wound Margin Flat & Intact -Granulation Amt Small (1-33%) -Granulation Quality Pale -Necrosis Amt Small (1-33%) -Necrotic Tissue Type Adherent Slough -Structure Exposed N/A -Texture (Josie-wound Skin Appearance) Scarring -Moisture (Josie-wound Skin Appearance Dry/Scaly ) -Color (Josie-wound Skin Appearance) Hemosiderin Staining -Temperature (Josie-wound Skin No Abnormality Appearance) (Pt Warm) -Tenderness on Palpation (Josie-wound Yes Skin Appearance) -Ulcer Cleansing Wound Cleanser -Foul Odor after Cleansing No -Anesthetic Used 4% Lidocaine Solution #9 L Med Ankle -Current Size (cm) - Length 1.7 -Current Size (cm) - Width 0.6 -Current Size (cm) - Depth 0.1 -Total Square Cm 1.02 -Photo Taken No -Exudate Amt Small (1-33%) -Exudate Type Serosanguineous -Wound Margin Distinct, Outline Attached -Granulation Amt Medium (34-66%) -Granulation Quality Red -Necrosis Amt Medium (34-66%) -Necrotic Tissue Type Adherent Slough -Structure Exposed N/A -Texture (Josie-wound Skin Appearance) Scarring -Moisture (Josie-wound Skin Appearance Dry/Scaly ) -Color (Josie-wound Skin Appearance) Hemosiderin Staining -Temperature (Josie-wound Skin No Abnormality Appearance) (Pt Warm) -Ulcer Cleansing Wound Cleanser -Foul Odor after Cleansing No -Anesthetic Used 4% Lidocaine Solution [Edema Assessment] -Right Calf (cm) 33.5 -Right Ankle (cm) 20 -Left Calf (cm) 33 -Left Ankle (cm) 19.2 Debridement Note Post-Debridement Measurements/Treatment WC - Nurse 2 - General Ulcer CM Notes Start: 07/04/17 14:11 Freq: Status: Active Protocol: Activity Type Activity Date Activity User E-Sign Co-Sign Detail Recorded Client Recorded Date Recorded By Document 07/04/17 14:21 MW [id number] 07/04/17 14:22 MW 07/04/17 14:21 Wound Center Nurse 2 #11 R Lat ankle -Time 14:21 -Correct Patient Yes -Correct Side, Site, Position Yes -Correct Procedure Yes -Procedure Performed Yes -Type of Procedure Debridement -Clinical Debridement Subcutaneous -Post Debridement Size (cm) - Length 0.5 -Post Debridement Size (cm) - Width 0.4 -Post Debridement Size (cm) - Depth 0.1 -Total Square Cm 0.20 -Wound/Ulcer Outcome Not Healed -Ulcer Cleansing Rinsed/ Irrigated with Saline -Foul Odor after Cleansing No -Bioengineered Tissue No -Bleeding Controlled with Pressure -Treatment Response Procedure Tolerated Well #9 L Med Ankle -Time 14:22 -Correct Patient Yes -Correct Side, Site, Position Yes -Correct Procedure Yes -Procedure Performed Yes -Type of Procedure Debridement -Clinical Debridement Subcutaneous -Post Debridement Size (cm) - Length 2.8 -Post Debridement Size (cm) - Width 1.5 -Post Debridement Size (cm) - Depth 0.1 -Total Square Cm 4.20 -Wound/Ulcer Outcome Not Healed -Ulcer Cleansing Rinsed/ Irrigated with Saline -Foul Odor after Cleansing No -Bioengineered Tissue No -Bleeding Controlled with Pressure -Treatment Response Procedure Tolerated Well Pain Scale: 0-10 Numeric Is Patient Pain Free? Yes Wound debrided: R lateral ankle Laterality: Right Wound Grade/Stage: full thickness VLU Type of Debridement: Excisional debridement Anesthesia Used: 4% Lidocaine Solution Depth: Down to and including healthy tissue, in the subcutaneous layer Percentage of wound debrided: 100 Instrument Used: 3mm curette Tissue Removed: fibrous slough Severity: Fat Layer Exposed Amount of bleeding with debridement: Mild Bleeding Controlled with: Pressure, Compression and gauze Patient tolerated procedure well - Additional Wound Wound debrided: L medial ankle Laterality: Left Wound Grade/Stage: full thickness VLU Type of Debridement: Excisional debridement Anesthesia Used: 4% Lidocaine Solution Depth: Down to and including healthy tissue, in the subcutaneous layer Percentage of wound debrided: 100 Instrument Used: 3mm curette Tissue Removed: fibrous slough Severity: Fat Layer Exposed Amount of bleeding with debridement: Mild Bleeding Controlled with: Pressure, Compression and gauze Patient tolerated procedure: Patient tolerated procedure well Assessment/Plan Active Problems Localized edema (Chronic) Non-pressure chronic ulcer of left ankle with fat layer exposed (Acute) Non-pressure chronic ulcer of right ankle with fat layer exposed (Acute) Venous insufficiency (chronic) (peripheral) (Chronic) I87.2 Assessment: See diagnoses Plan: SQ/excisional debridment b/l ankle ulcers as above. Referral to vascular surgery placed previously based on venous duplex results. Pt states he is not going to schedule an appointment. Discussed with him again that his wounds continue to recur due to venous insufficiency despite using compression, and he needs to see a vascular surgeon. Pt stated he understood. Pt does well with 3M 2-layer coban wraps, ulcers improved, re-apply today. Cont hydrofera blue, cont adaptic to wound bed prior to application of hydrofera blue. Monitor for redness, pus, malodor, warmth, pain, swelling as well as for N/V/F/C and go to the ED with these. Return in 1 week with me, call with questions.
[2017-07-18 14:20] VITALS: BP 125/72; PULSE 66; RESP 20; TEMP 36.6
--- NOTE | 2017-07-18 14:57 | PCM.WC.PN ---
(1) Non-pressure chronic ulcer of right ankle with fat layer exposed Status: Acute Current Visit: Yes Code(s): L97.312 - Non-pressure chronic ulcer of right ankle with fat layer exposed (2) Non-pressure chronic ulcer of left ankle with fat layer exposed Status: Acute Current Visit: Yes Code(s): L97.322 - Non-pressure chronic ulcer of left ankle with fat layer exposed (3) Venous insufficiency (chronic) (peripheral) Status: Chronic Current Visit: Yes Comment: I87.2 (4) Localized edema Status: Chronic Current Visit: Yes Code(s): R60.0 - Localized edema Type of Wound Date of Service: 07/18/17 Chief Complaint: R and L ankle ulcers History of Wound: This 76-year-old male [facility] for recurrent venous leg ulcerations of the left and right ankles. 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 Patient is also known to have chronic leg edema. He is drinking a protein supplementation drink daily still at this time. He denies fever, chills, nausea, vomiting, leg pain during the day. He had his venous doppler with reflux in the past, but not recently. He denies leg redness or drainage. 05/02--Improved. Vascular testing scheduled for next week. Tolerating 3M 2-layer coban wraps and hydrofera blue well. Pain improved. Denies N/V/F/C. Denies redness, pus, malodor, warmth. 05/09--Improved. Vascular testing done and reviewed. Tolerating 3M 2-layer coban wraps and hydrofera blue well. Pain improved. Denies N/V/F/C. Denies redness, pus, malodor, warmth. 05/16--Improved. Vascular testing done and reviewed. Tolerating 3M 2-layer coban wraps and hydrofera blue well. Pain improved. Denies N/V/F/C. Denies redness, pus, malodor, warmth. 05/30/17--Improved. Tolerating 3M 2-layer coban wraps and hydrofera blue well. Almost no drainge--hydrofera blue is sticking to the ulcers, so we will add adaptic first. Pain improved. Denies N/V/F/C. Denies redness, pus, malodor, warmth. 06/06--Improved. Tolerating 3M 2-layer coban wraps and, adaptic, hydrofera blue well. Almost no drainage. Pain improved. Denies N/V/F/C. Denies redness, pus, malodor, warmth. 06/13--Improved. Tolerating 3M 2-layer coban wraps and, adaptic, hydrofera blue well. Almost no drainage. Pain improved. Denies N/V/F/C. Denies redness, pus, malodor, warmth. Waiting for appointment with Dr. Chapman. 06/20--Improved. Tolerating 3M 2-layer coban wraps and, adaptic, hydrofera blue well. Almost no drainage. Pain improved. Denies N/V/F/C. Denies redness, pus, malodor, warmth. Was contacted by Dr. Chapman's office, but states he cannot schedule an appointment until he deals with his eyes. 06/27--Improved. Tolerating 3M 2-layer coban wraps and, adaptic, hydrofera blue well. Almost no drainage. Pain improved. Denies N/V/F/C. Denies redness, pus, malodor, warmth. R medial ulcer healed. 07/04--Improved. Tolerating 3M 2-layer coban wraps and, adaptic, hydrofera blue well. Almost no drainage. Pain improved. Denies N/V/F/C. Denies redness, pus, malodor, warmth. R medial ulcer remains healed. 07/11--Improved. Tolerating 3M 2-layer coban wraps and, adaptic, hydrofera blue well. Almost no drainage. Pain improved. Denies N/V/F/C. Denies redness, pus, malodor, warmth. R medial ulcer remains healed. 07/18--L medial ankle ulcer improved, but developed a new ulceration just distal to this one. R lateral ankle stable. Tolerating 3M 2-layer coban wraps, adaptic, hydrofera blue well. Almost no drainage. Denies N/V/F/C. Denies redness, pus, malodor, warmth. R medial ulcer remains healed. Progress of Wound: L medial ankle ulcer improved, but developed a new ulceration L medial ankle distal to the previous ulceration. R medial ulcer remains healed. R lateral ankle ulcer stable. - Physical Exam Vital Signs Temp Pulse Resp BP 97.9 F 66 20 H 125/72 H 07/18/17 14:20 07/18/17 14:20 07/18/17 14:20 07/18/17 14:20 General: Alert, Oriented x3, Cooperative, No apparent distress Skin: Ulcer/ Wound - L medial ankle x 2, R lateral ankle with no pus, no malodor, no increased warmth, no TTP, no erythema. No clinical signs of acute bacterial infection noted. See wound/edema assessment below. Wound Measurements and Assessment WC - Nurse 1 - General Ulcer Measurement Start: 07/04/17 14:11 Freq: Status: Active Protocol: Activity Type Activity Date Activity User E-Sign Co-Sign Detail Recorded Client Recorded Date Recorded By Document 07/18/17 14:20 DL [id number] 07/18/17 14:37 DL 07/18/17 14:20 Wound Center Nurse 1 [Ulcer Assessment] #11 R Lat ankle -Current Size (cm) - Length 0.5 -Current Size (cm) - Width 0.5 -Current Size (cm) - Depth 0.1 -Total Square Cm 0.25 -Photo Taken No -Exudate Amt None Present (0 %) -Wound Margin Distinct, Outline Attached -Granulation Amt None Present (0 %) -Necrosis Amt Large (67-100%) -Necrotic Tissue Type Adherent Slough -Structure Exposed N/A -Texture (Nikia-wound Skin Appearance) No Abnormality -Moisture (Nikia-wound Skin Appearance Dry/Scaly ) -Color (Nikia-wound Skin Appearance) Hemosiderin Staining -Temperature (Nikia-wound Skin No Abnormality Appearance) (Pt Warm) -Tenderness on Palpation (Nikia-wound No Skin Appearance) -Ulcer Cleansing Wound Cleanser -Foul Odor after Cleansing No -Anesthetic Used 4% Lidocaine Solution #9 L Med Ankle SUPERIOR -Current Size (cm) - Length 1.4 -Current Size (cm) - Width 0.6 -Current Size (cm) - Depth 0.2 -Total Square Cm 0.84 -Photo Taken No -Exudate Amt Small (1-33%) -Exudate Type Serosanguineous -Wound Margin Distinct, Outline Attached -Granulation Amt Large (67-100%) -Granulation Quality Olean Red -Necrosis Amt Small (1-33%) -Necrotic Tissue Type Adherent Slough -Structure Exposed N/A -Texture (Nikia-wound Skin Appearance) Scarring -Moisture (Nikia-wound Skin Appearance Dry/Scaly ) -Color (Nikia-wound Skin Appearance) Hemosiderin Staining -Temperature (Nikia-wound Skin No Abnormality Appearance) (Pt Warm) -Ulcer Cleansing Wound Cleanser -Foul Odor after Cleansing No -Anesthetic Used 4% Lidocaine Solution [Edema Assessment] -Right Calf (cm) 32.5 -Right Ankle (cm) 18.6 -Left Calf (cm) 32 -Left Ankle (cm) 20 WC - Nurse 2 - General Ulcer CM Notes Start: 07/04/17 14:11 Freq: Status: Active Protocol: Activity Type Activity Date Activity User E-Sign Co-Sign Detail Recorded Client Recorded Date Recorded By Document 07/18/17 14:47 MW [id number] 07/18/17 14:52 MW 07/18/17 14:47 Wound Center Nurse 2 [Procedure/Treatment] #13 LEFT MEDIAL ANKLE- INFERIOR -Time 14:48 -Correct Patient Yes -Correct Side, Site, Position Yes -Correct Procedure Yes -Procedure Performed Yes -Type of Procedure Debridement -Clinical Debridement Subcutaneous -Post Debridement Size (cm) - Length 0.7 -Post Debridement Size (cm) - Width 0.8 -Post Debridement Size (cm) - Depth 0.1 -Total Square Cm 0.56 -Wound/Ulcer Outcome Not Healed -Ulcer Cleansing Rinsed/ Irrigated with Saline -Foul Odor after Cleansing No -Bioengineered Tissue No -Bleeding Controlled with Pressure -Treatment Response Procedure Tolerated Well #11 R Lat ankle -Time 14:50 -Correct Patient Yes -Correct Side, Site, Position Yes -Correct Procedure Yes -Procedure Performed Yes -Type of Procedure Debridement -Clinical Debridement Subcutaneous -Post Debridement Size (cm) - Length 0.3 -Post Debridement Size (cm) - Width 0.3 -Post Debridement Size (cm) - Depth 0.1 -Total Square Cm 0.09 -Wound/Ulcer Outcome Not Healed -Ulcer Cleansing Rinsed/ Irrigated with Saline -Foul Odor after Cleansing No -Bleeding Controlled with Pressure -Treatment Response Procedure Tolerated Well #9 L Med Ankle SUPERIOR -Time 14:50 -Correct Patient Yes -Correct Side, Site, Position Yes -Correct Procedure Yes -Clinical Debridement Subcutaneous -Post Debridement Size (cm) - Length 1.5 -Post Debridement Size (cm) - Width 0.6 -Post Debridement Size (cm) - Depth 0.1 -Total Square Cm 0.90 -Wound/Ulcer Outcome Not Healed -Ulcer Cleansing Rinsed/ Irrigated with Saline -Foul Odor after Cleansing No -Bioengineered Tissue No -Bleeding Controlled with Pressure -Treatment Response Procedure Tolerated Well [See Physician Procedure note for Specifics] Pain Scale: 0-10 Numeric [Pain] -Is Patient Pain Free? Yes Debridement Note Post-Debridement Measurements/Treatment WC - Nurse 2 - General Ulcer CM Notes Start: 07/04/17 14:11 Freq: Status: Active Protocol: Activity Type Activity Date Activity User E-Sign Co-Sign Detail Recorded Client Recorded Date Recorded By Document 07/04/17 14:21 MW [id number] 07/04/17 14:22 MW Document 07/11/17 14:36 MW [id number] 07/11/17 14:39 MW Document 07/18/17 14:47 MW [id number] 07/18/17 14:52 MW 07/04/17 07/11/17 07/18/17 14:21 14:36 14:47 Wound Center Nurse 2 #13 LEFT MEDIAL ANKLE- INFERIOR -Time 14:48 -Correct Patient Yes -Correct Side, Site, Position Yes -Correct Procedure Yes -Procedure Performed Yes -Type of Procedure Debridement -Clinical Debridement Subcutaneous -Post Debridement Size (cm) - Length 0.7 -Post Debridement Size (cm) - Width 0.8 -Post Debridement Size (cm) - Depth 0.1 -Total Square Cm 0.56 -Wound/Ulcer Outcome Not Healed -Ulcer Cleansing Rinsed/ Irrigated with Saline -Foul Odor after Cleansing No -Bioengineered Tissue No -Bleeding Controlled with Pressure -Treatment Response Procedure Tolerated Well #11 R Lat ankle -Time 14:21 14:37 14:50 -Correct Patient Yes Yes Yes -Correct Side, Site, Position Yes Yes Yes -Correct Procedure Yes Yes Yes -Procedure Performed Yes Yes Yes -Type of Procedure Debridement Debridement Debridement -Clinical Debridement Subcutaneous Subcutaneous Subcutaneous -Post Debridement Size (cm) - Length 0.5 0.3 0.3 -Post Debridement Size (cm) - Width 0.4 0.3 0.3 -Post Debridement Size (cm) - Depth 0.1 0.1 0.1 -Total Square Cm 0.20 0.09 0.09 -Wound/Ulcer Outcome Not Healed Not Healed Not Healed -Ulcer Cleansing Rinsed/ Not Cleansed Rinsed/ Irrigated with Irrigated with Saline Saline -Foul Odor after Cleansing No No No -Bioengineered Tissue No No -Bleeding Controlled with Pressure Pressure Pressure -Treatment Response Procedure Procedure Procedure Tolerated Well Tolerated Well Tolerated Well #9 L Med Ankle SUPERIOR -Time 14:22 14:38 14:50 -Correct Patient Yes Yes Yes -Correct Side, Site, Position Yes Yes Yes -Correct Procedure Yes Yes Yes -Procedure Performed Yes Yes -Type of Procedure Debridement Debridement -Clinical Debridement Subcutaneous Subcutaneous Subcutaneous -Post Debridement Size (cm) - Length 2.8 1.8 1.5 -Post Debridement Size (cm) - Width 1.5 0.6 0.6 -Post Debridement Size (cm) - Depth 0.1 0.1 0.1 -Total Square Cm 4.20 1.08 0.90 -Wound/Ulcer Outcome Not Healed Not Healed Not Healed -Ulcer Cleansing Rinsed/ Rinsed/ Rinsed/ Irrigated with Irrigated with Irrigated with Saline Saline Saline -Foul Odor after Cleansing No No No -Bioengineered Tissue No No No -Bleeding Controlled with Pressure Pressure Pressure -Treatment Response Procedure Procedure Procedure Tolerated Well Tolerated Well Tolerated Well Pain Scale: 0-10 Numeric Is Patient Pain Free? Yes Yes Yes Wound debrided: L medial ankle x 2 Laterality: Left Wound Grade/Stage: Full thickness VLUs Type of Debridement: Excisional debridement Anesthesia Used: 4% Lidocaine Solution Depth: Down to and including healthy tissue, in the subcutaneous layer Percentage of wound debrided: 100 Instrument Used: 3mm curette Tissue Removed: fibrous slough Severity: Fat Layer Exposed Amount of bleeding with debridement: Mild Bleeding Controlled with: Pressure, Compression and gauze Patient tolerated procedure well - Additional Wound Wound debrided: R lateral ankle Laterality: Right Wound Grade/Stage: Full thickness VLU Type of Debridement: Excisional debridement Anesthesia Used: 4% Lidocaine Solution Depth: Down to and including healthy tissue, in the subcutaneous layer Percentage of wound debrided: 100 Instrument Used: 3mm curette Tissue Removed: fibrous slough Severity: Fat Layer Exposed Amount of bleeding with debridement: Mild Bleeding Controlled with: Pressure, Compression and gauze Patient tolerated procedure: Patient tolerated procedure well Assessment/Plan Active Problems Localized edema (Chronic) Non-pressure chronic ulcer of left ankle with fat layer exposed (Acute) Non-pressure chronic ulcer of right ankle with fat layer exposed (Acute) Venous insufficiency (chronic) (peripheral) (Chronic) I87.2 Assessment: See diagnoses Plan: SQ/excisional debridment b/l ankle ulcers as above. Referral to vascular surgery placed previously based on venous duplex results. Pt states he is not going to schedule an appointment. Discussed with him again that his wounds continue to recur due to venous insufficiency despite using compression, and he needs to see a vascular surgeon. Pt stated he understood. Pt does well with 3M 2-layer coban wraps, re-apply today. R lateral ankle ulcer stable, and pt developed a new ulceration L medial ankle, but previous ulceration L medial ankle improved. Cont hydrofera blue, cont adaptic to wound bed prior to application of hydrofera blue. If no improvement next week, plan to switch from hydrofera blue to new dressing. Monitor for redness, pus, malodor, warmth, pain, swelling as well as for N/V/F/C and go to the ED with these. Return in 1 week with me, call with questions. Discussed importance of adequate nutrition, especially increased protein intake to promote healing. Discussed importance of leg elevation, increased activity, and avoiding idle sitting or standing. Pt unable to take PO NSAIDs due to current use of Coumadin.
--- NOTE | 2017-07-18 15:03 | PN.PCM_ITS ---
(1) Non-pressure chronic ulcer of right ankle with fat layer exposed Status: Acute Current Visit: Yes Code(s): L97.312 - Non-pressure chronic ulcer of right ankle with fat layer exposed (2) Non-pressure chronic ulcer of left ankle with fat layer exposed Status: Acute Current Visit: Yes Code(s): L97.322 - Non-pressure chronic ulcer of left ankle with fat layer exposed (3) Venous insufficiency (chronic) (peripheral) Status: Chronic Current Visit: Yes Comment: I87.2 (4) Localized edema Status: Chronic Current Visit: Yes Code(s): R60.0 - Localized edema Type of Wound Date of Service: 07/18/17 Chief Complaint: R and L ankle ulcers History of Wound: This 76-year-old male [facility] for recurrent venous leg ulcerations of the left and right ankles. 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 Patient is also known to have chronic leg edema. He is drinking a protein supplementation drink daily still at this time. He denies fever, chills, nausea, vomiting, leg pain during the day. He had his venous doppler with reflux in the past, but not recently. He denies leg redness or drainage. 05/02--Improved. Vascular testing scheduled for next week. Tolerating 3M 2-layer coban wraps and hydrofera blue well. Pain improved. Denies N/V/F/C. Denies redness, pus, malodor, warmth. 05/09--Improved. Vascular testing done and reviewed. Tolerating 3M 2-layer coban wraps and hydrofera blue well. Pain improved. Denies N/V/F/C. Denies redness, pus, malodor, warmth. 05/16--Improved. Vascular testing done and reviewed. Tolerating 3M 2-layer coban wraps and hydrofera blue well. Pain improved. Denies N/V/F/C. Denies redness, pus, malodor, warmth. 05/30/17--Improved. Tolerating 3M 2-layer coban wraps and hydrofera blue well. Almost no drainge-- hydrofera blue is sticking to the ulcers, so we will add adaptic first. Pain improved. Denies N/V/F/C. Denies redness, pus, malodor, warmth. 06/06-- Improved. Tolerating 3M 2-layer coban wraps and, adaptic, hydrofera blue well. Almost no drainage. Pain improved. Denies N/V/F/C. Denies redness, pus, malodor, warmth. 06/13--Improved. Tolerating 3M 2-layer coban wraps and, adaptic, hydrofera blue well. Almost no drainage. Pain improved. Denies N/V/F/ C. Denies redness, pus, malodor, warmth. Waiting for appointment with Dr. Chapman. 06/20--Improved. Tolerating 3M 2-layer coban wraps and, adaptic, hydrofera blue well. Almost no drainage. Pain improved. Denies N/V/F/C. Denies redness, pus, malodor, warmth. Was contacted by Dr. Chapman's office, but states he cannot schedule an appointment until he deals with his eyes. --Improved. Tolerating 3M 2-layer coban wraps and, adaptic, hydrofera blue well. Almost no drainage. Pain improved. Denies N/V/F/C. Denies redness, pus , malodor, warmth. R medial ulcer healed. 07/04--Improved. Tolerating 3M 2- layer coban wraps and, adaptic, hydrofera blue well. Almost no drainage. Pain improved. Denies N/V/F/C. Denies redness, pus, malodor, warmth. R medial ulcer remains healed. 07/11--Improved. Tolerating 3M 2-layer coban wraps and, adaptic, hydrofera blue well. Almost no drainage. Pain improved. Denies N/V/F/ C. Denies redness, pus, malodor, warmth. R medial ulcer remains healed. 07/18- -L medial ankle ulcer improved, but developed a new ulceration just distal to this one. R lateral ankle stable. Tolerating 3M 2-layer coban wraps, adaptic, hydrofera blue well. Almost no drainage. Denies N/V/F/C. Denies redness, pus , malodor, warmth. R medial ulcer remains healed. Progress of Wound: L medial ankle ulcer improved, but developed a new ulceration L medial ankle distal to the previous ulceration. R medial ulcer remains healed. R lateral ankle ulcer stable. - Physical Exam Vital Signs Temp Pulse Resp BP 97.9 F 66 20 H 125/72 H 07/18/17 14:20 07/18/17 14:20 07/18/17 14:20 07/18/17 14:20 General: Alert, Oriented x3, Cooperative, No apparent distress Skin: Ulcer/ Wound - L medial ankle x 2, R lateral ankle with no pus, no malodor , no increased warmth, no TTP, no erythema. No clinical signs of acute bacterial infection noted. See wound/edema assessment below. Wound Measurements and Assessment WC - Nurse 1 - General Ulcer Measurement Start: 07/04/17 14:11 Freq: Status: Active Protocol: Activity Type Activity Date Activity User E-Sign Co-Sign Detail Recorded Client Recorded Date Recorded By Document 07/18/17 14:20 DL [id number] 07/18/17 14:37 DL 07/18/17 14:20 Wound Center Nurse 1 [Ulcer Assessment] #11 R Lat ankle -Current Size (cm) - Length 0.5 -Current Size (cm) - Width 0.5 -Current Size (cm) - Depth 0.1 -Total Square Cm 0.25 -Photo Taken No -Exudate Amt None Present (0 %) -Wound Margin Distinct, Outline Attached -Granulation Amt None Present (0 %) -Necrosis Amt Large (67-100%) -Necrotic Tissue Type Adherent Slough -Structure Exposed N/A -Texture (Nikia-wound Skin Appearance) No Abnormality -Moisture (Nikia-wound Skin Appearance Dry/Scaly ) -Color (Nikia-wound Skin Appearance) Hemosiderin Staining -Temperature (Nikia-wound Skin No Abnormality Appearance) (Pt Warm) -Tenderness on Palpation (Nikia-wound No Skin Appearance) -Ulcer Cleansing Wound Cleanser -Foul Odor after Cleansing No -Anesthetic Used 4% Lidocaine Solution #9 L Med Ankle SUPERIOR -Current Size (cm) - Length 1.4 -Current Size (cm) - Width 0.6 -Current Size (cm) - Depth 0.2 -Total Square Cm 0.84 -Photo Taken No -Exudate Amt Small (1-33%) -Exudate Type Serosanguineous -Wound Margin Distinct, Outline Attached -Granulation Amt Large (67-100%) -Granulation Quality [place] Red -Necrosis Amt Small (1-33%) -Necrotic Tissue Type Adherent Slough -Structure Exposed N/A -Texture (Nikia-wound Skin Appearance) Scarring -Moisture (Nikia-wound Skin Appearance Dry/Scaly ) -Color (Nikia-wound Skin Appearance) Hemosiderin Staining -Temperature (Nikia-wound Skin No Abnormality Appearance) (Pt Warm) -Ulcer Cleansing Wound Cleanser -Foul Odor after Cleansing No -Anesthetic Used 4% Lidocaine Solution [Edema Assessment] -Right Calf (cm) 32.5 -Right Ankle (cm) 18.6 -Left Calf (cm) 32 -Left Ankle (cm) 20 WC - Nurse 2 - General Ulcer CM Notes Start: 07/04/17 14:11 Freq: Status: Active Protocol: Activity Type Activity Date Activity User E-Sign Co-Sign Detail Recorded Client Recorded Date Recorded By Document 07/18/17 14:47 MW [id number] 07/18/17 14:52 MW 07/18/17 14:47 Wound Center Nurse 2 [Procedure/Treatment] #13 LEFT MEDIAL ANKLE- INFERIOR -Time 14:48 -Correct Patient Yes -Correct Side, Site, Position Yes -Correct Procedure Yes -Procedure Performed Yes -Type of Procedure Debridement -Clinical Debridement Subcutaneous -Post Debridement Size (cm) - Length 0.7 -Post Debridement Size (cm) - Width 0.8 -Post Debridement Size (cm) - Depth 0.1 -Total Square Cm 0.56 -Wound/Ulcer Outcome Not Healed -Ulcer Cleansing Rinsed/ Irrigated with Saline -Foul Odor after Cleansing No -Bioengineered Tissue No -Bleeding Controlled with Pressure -Treatment Response Procedure Tolerated Well #11 R Lat ankle -Time 14:50 -Correct Patient Yes -Correct Side, Site, Position Yes -Correct Procedure Yes -Procedure Performed Yes -Type of Procedure Debridement -Clinical Debridement Subcutaneous -Post Debridement Size (cm) - Length 0.3 -Post Debridement Size (cm) - Width 0.3 -Post Debridement Size (cm) - Depth 0.1 -Total Square Cm 0.09 -Wound/Ulcer Outcome Not Healed -Ulcer Cleansing Rinsed/ Irrigated with Saline -Foul Odor after Cleansing No -Bleeding Controlled with Pressure -Treatment Response Procedure Tolerated Well #9 L Med Ankle SUPERIOR -Time 14:50 -Correct Patient Yes -Correct Side, Site, Position Yes -Correct Procedure Yes -Clinical Debridement Subcutaneous -Post Debridement Size (cm) - Length 1.5 -Post Debridement Size (cm) - Width 0.6 -Post Debridement Size (cm) - Depth 0.1 -Total Square Cm 0.90 -Wound/Ulcer Outcome Not Healed -Ulcer Cleansing Rinsed/ Irrigated with Saline -Foul Odor after Cleansing No -Bioengineered Tissue No -Bleeding Controlled with Pressure -Treatment Response Procedure Tolerated Well [See Physician Procedure note for Specifics] Pain Scale: 0-10 Numeric [Pain] -Is Patient Pain Free? Yes Debridement Note Post-Debridement Measurements/Treatment WC - Nurse 2 - General Ulcer CM Notes Start: 07/04/17 14:11 Freq: Status: Active Protocol: Activity Type Activity Date Activity User E-Sign Co-Sign Detail Recorded Client Recorded Date Recorded By Document 07/04/17 14:21 MW [id number] 07/04/17 14:22 MW Document 07/11/17 14:36 MW [id number] 07/11/17 14:39 MW Document 07/18/17 14:47 MW [id number] 07/18/17 14:52 MW 07/04/17 07/11/17 07/18/17 14:21 14:36 14:47 Wound Center Nurse 2 #13 LEFT MEDIAL ANKLE- INFERIOR -Time 14:48 -Correct Patient Yes -Correct Side, Site, Position Yes -Correct Procedure Yes -Procedure Performed Yes -Type of Procedure Debridement -Clinical Debridement Subcutaneous -Post Debridement Size (cm) - Length 0.7 -Post Debridement Size (cm) - Width 0.8 -Post Debridement Size (cm) - Depth 0.1 -Total Square Cm 0.56 -Wound/Ulcer Outcome Not Healed -Ulcer Cleansing Rinsed/ Irrigated with Saline -Foul Odor after Cleansing No -Bioengineered Tissue No -Bleeding Controlled with Pressure -Treatment Response Procedure Tolerated Well #11 R Lat ankle -Time 14:21 14:37 14:50 -Correct Patient Yes Yes Yes -Correct Side, Site, Position Yes Yes Yes -Correct Procedure Yes Yes Yes -Procedure Performed Yes Yes Yes -Type of Procedure Debridement Debridement Debridement -Clinical Debridement Subcutaneous Subcutaneous Subcutaneous -Post Debridement Size (cm) - Length 0.5 0.3 0.3 -Post Debridement Size (cm) - Width 0.4 0.3 0.3 -Post Debridement Size (cm) - Depth 0.1 0.1 0.1 -Total Square Cm 0.20 0.09 0.09 -Wound/Ulcer Outcome Not Healed Not Healed Not Healed -Ulcer Cleansing Rinsed/ Not Cleansed Rinsed/ Irrigated with Irrigated with Saline Saline -Foul Odor after Cleansing No No No -Bioengineered Tissue No No -Bleeding Controlled with Pressure Pressure Pressure -Treatment Response Procedure Procedure Procedure Tolerated Well Tolerated Well Tolerated Well #9 L Med Ankle SUPERIOR -Time 14:22 14:38 14:50 -Correct Patient Yes Yes Yes -Correct Side, Site, Position Yes Yes Yes -Correct Procedure Yes Yes Yes -Procedure Performed Yes Yes -Type of Procedure Debridement Debridement -Clinical Debridement Subcutaneous Subcutaneous Subcutaneous -Post Debridement Size (cm) - Length 2.8 1.8 1.5 -Post Debridement Size (cm) - Width 1.5 0.6 0.6 -Post Debridement Size (cm) - Depth 0.1 0.1 0.1 -Total Square Cm 4.20 1.08 0.90 -Wound/Ulcer Outcome Not Healed Not Healed Not Healed -Ulcer Cleansing Rinsed/ Rinsed/ Rinsed/ Irrigated with Irrigated with Irrigated with Saline Saline Saline -Foul Odor after Cleansing No No No -Bioengineered Tissue No No No -Bleeding Controlled with Pressure Pressure Pressure -Treatment Response Procedure Procedure Procedure Tolerated Well Tolerated Well Tolerated Well Pain Scale: 0-10 Numeric Is Patient Pain Free? Yes Yes Yes Wound debrided: L medial ankle x 2 Laterality: Left Wound Grade/Stage: Full thickness VLUs Type of Debridement: Excisional debridement Anesthesia Used: 4% Lidocaine Solution Depth: Down to and including healthy tissue, in the subcutaneous layer Percentage of wound debrided: 100 Instrument Used: 3mm curette Tissue Removed: fibrous slough Severity: Fat Layer Exposed Amount of bleeding with debridement: Mild Bleeding Controlled with: Pressure, Compression and gauze Patient tolerated procedure well - Additional Wound Wound debrided: R lateral ankle Laterality: Right Wound Grade/Stage: Full thickness VLU Type of Debridement: Excisional debridement Anesthesia Used: 4% Lidocaine Solution Depth: Down to and including healthy tissue, in the subcutaneous layer Percentage of wound debrided: 100 Instrument Used: 3mm curette Tissue Removed: fibrous slough Severity: Fat Layer Exposed Amount of bleeding with debridement: Mild Bleeding Controlled with: Pressure, Compression and gauze Patient tolerated procedure: Patient tolerated procedure well Assessment/Plan Active Problems Localized edema (Chronic) Non-pressure chronic ulcer of left ankle with fat layer exposed (Acute) Non-pressure chronic ulcer of right ankle with fat layer exposed (Acute) Venous insufficiency (chronic) (peripheral) (Chronic) I87.2 Assessment: See diagnoses Plan: SQ/excisional debridment b/l ankle ulcers as above. Referral to vascular surgery placed previously based on venous duplex results. Pt states he is not going to schedule an appointment. Discussed with him again that his wounds continue to recur due to venous insufficiency despite using compression, and he needs to see a vascular surgeon. Pt stated he understood. Pt does well with 3M 2-layer coban wraps, re-apply today. R lateral ankle ulcer stable, and pt developed a new ulceration L medial ankle, but previous ulceration L medial ankle improved. Cont hydrofera blue, cont adaptic to wound bed prior to application of hydrofera blue. If no improvement next week, plan to switch from hydrofera blue to new dressing. Monitor for redness, pus, malodor, warmth , pain, swelling as well as for N/V/F/C and go to the ED with these. Return in 1 week with me, call with questions. Discussed importance of adequate nutrition , especially increased protein intake to promote healing. Discussed importance of leg elevation, increased activity, and avoiding idle sitting or standing. Pt unable to take PO NSAIDs due to current use of Coumadin.
[2017-07-25 14:11] VITALS: BP 135/69; PULSE 76; RESP 18; TEMP 36.3
--- NOTE | 2017-07-25 14:47 | PCM.WC.PN ---
(1) Non-pressure chronic ulcer of right ankle with fat layer exposed Status: Acute Current Visit: Yes Code(s): L97.312 - Non-pressure chronic ulcer of right ankle with fat layer exposed (2) Non-pressure chronic ulcer of left ankle with fat layer exposed Status: Acute Current Visit: Yes Code(s): L97.322 - Non-pressure chronic ulcer of left ankle with fat layer exposed (3) Venous insufficiency (chronic) (peripheral) Status: Chronic Current Visit: Yes Comment: I87.2 (4) Localized edema Status: Chronic Current Visit: Yes Code(s): R60.0 - Localized edema Type of Wound Date of Service: 07/25/17 Chief Complaint: R and L ankle ulcers History of Wound: This 76-year-old male presents [facility] to [facility] for recurrent venous leg ulcerations of the left and right ankles. 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 Patient is also known to have chronic leg edema. He is drinking a protein supplementation drink daily still at this time. He denies fever, chills, nausea, vomiting, leg pain during the day. He had his venous doppler with reflux in the past, but not recently. He denies leg redness or drainage. 05/02--Improved. Vascular testing scheduled for next week. Tolerating 3M 2-layer coban wraps and hydrofera blue well. Pain improved. Denies N/V/F/C. Denies redness, pus, malodor, warmth. 05/09--Improved. Vascular testing done and reviewed. Tolerating 3M 2-layer coban wraps and hydrofera blue well. Pain improved. Denies N/V/F/C. Denies redness, pus, malodor, warmth. 05/16--Improved. Vascular testing done and reviewed. Tolerating 3M 2-layer coban wraps and hydrofera blue well. Pain improved. Denies N/V/F/C. Denies redness, pus, malodor, warmth. 05/30/17--Improved. Tolerating 3M 2-layer coban wraps and hydrofera blue well. Almost no drainge--hydrofera blue is sticking to the ulcers, so we will add adaptic first. Pain improved. Denies N/V/F/C. Denies redness, pus, malodor, warmth. 06/06--Improved. Tolerating 3M 2-layer coban wraps and, adaptic, hydrofera blue well. Almost no drainage. Pain improved. Denies N/V/F/C. Denies redness, pus, malodor, warmth. 06/13--Improved. Tolerating 3M 2-layer coban wraps and, adaptic, hydrofera blue well. Almost no drainage. Pain improved. Denies N/V/F/C. Denies redness, pus, malodor, warmth. Waiting for appointment with Dr. Chapman. 06/20--Improved. Tolerating 3M 2-layer coban wraps and, adaptic, hydrofera blue well. Almost no drainage. Pain improved. Denies N/V/F/C. Denies redness, pus, malodor, warmth. Was contacted by Dr. Chapman's office, but states he cannot schedule an appointment until he deals with his eyes. 06/27--Improved. Tolerating 3M 2-layer coban wraps and, adaptic, hydrofera blue well. Almost no drainage. Pain improved. Denies N/V/F/C. Denies redness, pus, malodor, warmth. R medial ulcer healed. 07/04--Improved. Tolerating 3M 2-layer coban wraps and, adaptic, hydrofera blue well. Almost no drainage. Pain improved. Denies N/V/F/C. Denies redness, pus, malodor, warmth. R medial ulcer remains healed. 07/11--Improved. Tolerating 3M 2-layer coban wraps and, adaptic, hydrofera blue well. Almost no drainage. Pain improved. Denies N/V/F/C. Denies redness, pus, malodor, warmth. R medial ulcer remains healed. 07/18--L medial ankle ulcer improved, but developed a new ulceration just distal to this one. R lateral ankle stable. Tolerating 3M 2-layer coban wraps, adaptic, hydrofera blue well. Almost no drainage. Denies N/V/F/C. Denies redness, pus, malodor, warmth. R medial ulcer remains healed. 07/25--Slowling improving. Tolerating 3M 2-layer coban wraps, adaptic, hydrofera blue well. Almost no drainage. Denies N/V/F/C. Denies redness, pus, malodor, warmth. R medial ulcer remains healed. Progress of Wound: Slowly improving. - Physical Exam Vital Signs Temp Pulse Resp BP 97.3 F L 76 18 135/69 H 07/25/17 14:11 07/25/17 14:11 07/25/17 14:11 07/25/17 14:11 General: Alert, Oriented x3, Cooperative, No apparent distress Skin: Ulcer/ Wound - R lateral ankle, L medial ankle x 2 with no erythema, no malodor, no pus, no calor, no pain. No clinical signs of acute bacterial infection noted. See wound/edema assessment below. Wound Measurements and Assessment WC - Nurse 1 - General Ulcer Measurement Start: 07/04/17 14:11 Freq: Status: Active Protocol: Activity Type Activity Date Activity User E-Sign Co-Sign Detail Recorded Client Recorded Date Recorded By Document 07/25/17 14:11 [facility] [id number] 07/25/17 14:26 [facility] 07/25/17 14:11 [facility] Center Nurse 1 [Ulcer Assessment] #13 LEFT MEDIAL ANKLE- INFERIOR -Combined with other wound No -Current Size (cm) - Length 0.7 -Current Size (cm) - Width 0.7 -Current Size (cm) - Depth 0.1 -Total Square Cm 0.49 -Photo Taken No -Epithelialization Medium 34-66% -Tunneling No -Undermining/Tunneling No -Exudate Amt Small (1-33%) -Exudate Type Serosanguineous -Wound Margin Distinct, Outline Attached -Granulation Amt Small (1-33%) -Granulation Quality Red -Slough/Fibrin Yes -Necrosis Amt Small (1-33%) -Necrotic Tissue Type Adherent Slough -Texture (Nikia-wound Skin Appearance) Scarring -Moisture (Nikia-wound Skin Appearance Maceration ) Dry/Scaly -Color (Nikia-wound Skin Appearance) Assessed -Temperature (Nikia-wound Skin No Abnormality Appearance) (Pt Warm) -Tenderness on Palpation (Nikia-wound No Skin Appearance) -Ulcer Cleansing Wound Cleanser -Foul Odor after Cleansing No -Anesthetic Used 4% Lidocaine Solution #11 R Lat ankle -Combined with other wound No -Current Size (cm) - Length 0.1 -Current Size (cm) - Width 0.1 -Current Size (cm) - Depth 0.1 -Total Square Cm 0.01 -Photo Taken No -Epithelialization None Present -Tunneling No -Undermining/Tunneling No -Exudate Amt None Present (0 %) -Wound Margin Distinct, Outline Attached -Granulation Amt None Present (0 %) -Slough/Fibrin Yes -Necrosis Amt Large (67-100%) -Necrotic Tissue Type Adherent Slough -Structure Exposed None/Limited to Skin Breakdown -Texture (Nikia-wound Skin Appearance) Scarring -Moisture (Nikia-wound Skin Appearance Dry/Scaly ) -Color (Nikia-wound Skin Appearance) Assessed -Temperature (Nikia-wound Skin No Abnormality Appearance) (Pt Warm) -Tenderness on Palpation (Nikia-wound No Skin Appearance) -Ulcer Cleansing Wound Cleanser -Foul Odor after Cleansing No -Anesthetic Used 4% Lidocaine Solution #9 L Med Ankle SUPERIOR -Combined with other wound No -Current Size (cm) - Length 1.4 -Current Size (cm) - Width 0 -Current Size (cm) - Depth 0.2 -Total Square Cm 0 -Photo Taken No -Epithelialization None Present -Tunneling No -Undermining/Tunneling No -Exudate Amt Small (1-33%) -Exudate Type Serosanguineous -Wound Margin Distinct, Outline Attached -Granulation Amt Medium (34-66%) -Granulation Quality Pale Red -Slough/Fibrin Yes -Necrosis Amt Small (1-33%) -Necrotic Tissue Type Adherent Slough -Structure Exposed None/Limited to Skin Breakdown -Texture (Nikia-wound Skin Appearance) Scarring -Moisture (Nikia-wound Skin Appearance Maceration ) Dry/Scaly -Color (Nikia-wound Skin Appearance) Assessed -Temperature (Nikia-wound Skin No Abnormality Appearance) (Pt Warm) -Tenderness on Palpation (Nikia-wound No Skin Appearance) -Ulcer Cleansing Wound Cleanser -Foul Odor after Cleansing No -Anesthetic Used 4% Lidocaine Solution [Edema Assessment] -Lower Limb Edema Present Yes -Right Calf (cm) 40 -Right Ankle (cm) 21.3 -Left Calf (cm) 33.5 -Left Ankle (cm) 20.4 WC - Nurse 2 - General Ulcer CM Notes Start: 07/04/17 14:11 Freq: Status: Active Protocol: Activity Type Activity Date Activity User E-Sign Co-Sign Detail Recorded Client Recorded Date Recorded By Document 07/25/17 14:45 MW [id number] 07/25/17 14:46 MW 07/25/17 14:45 Wound Center Nurse 2 [Procedure/Treatment] #13 LEFT MEDIAL ANKLE- INFERIOR -Time 14:45 -Correct Patient Yes -Correct Side, Site, Position Yes -Correct Procedure Yes -Procedure Performed Yes -Type of Procedure Debridement -Clinical Debridement Subcutaneous -Post Debridement Size (cm) - Length 0.8 -Post Debridement Size (cm) - Width 0.8 -Post Debridement Size (cm) - Depth 0.1 -Total Square Cm 0.64 -Wound/Ulcer Outcome Not Healed -Ulcer Cleansing Rinsed/ Irrigated with Saline -Foul Odor after Cleansing No -Bioengineered Tissue No -Bleeding Controlled with Pressure -Treatment Response Procedure Tolerated Well #11 R Lat ankle -Time 14:45 -Correct Patient Yes -Correct Side, Site, Position Yes -Correct Procedure Yes -Procedure Performed Yes -Type of Procedure Debridement -Clinical Debridement Subcutaneous -Post Debridement Size (cm) - Length 0.2 -Post Debridement Size (cm) - Width 0.2 -Post Debridement Size (cm) - Depth 0.1 -Total Square Cm 0.04 -Wound/Ulcer Outcome Not Healed -Ulcer Cleansing Rinsed/ Irrigated with Saline -Foul Odor after Cleansing No -Bioengineered Tissue No -Bleeding Controlled with Pressure -Treatment Response Procedure Tolerated Well #9 L Med Ankle SUPERIOR -Time 14:45 -Correct Patient Yes -Correct Side, Site, Position Yes -Correct Procedure Yes -Procedure Performed Yes -Type of Procedure Debridement -Clinical Debridement Subcutaneous -Post Debridement Size (cm) - Length 1.5 -Post Debridement Size (cm) - Width 0.4 -Post Debridement Size (cm) - Depth 0.1 -Total Square Cm 0.60 -Wound/Ulcer Outcome Not Healed -Ulcer Cleansing Rinsed/ Irrigated with Saline -Foul Odor after Cleansing No -Bioengineered Tissue No -Bleeding Controlled with Pressure -Treatment Response Procedure Tolerated Well [See Physician Procedure note for Specifics] Pain Scale: 0-10 Numeric [Pain] -Is Patient Pain Free? Yes Debridement Note Post-Debridement Measurements/Treatment WC - Nurse 2 - General Ulcer CM Notes Start: 07/04/17 14:11 Freq: Status: Active Protocol: Activity Type Activity Date Activity User E-Sign Co-Sign Detail Recorded Client Recorded Date Recorded By Document 07/04/17 14:21 MW [id number] 07/04/17 14:22 MW Document 07/11/17 14:36 MW [id number] 07/11/17 14:39 MW Document 07/18/17 14:47 MW [id number] 07/18/17 14:52 MW Document 07/25/17 14:45 MW [id number] 07/25/17 14:46 MW 07/04/17 07/11/17 07/18/17 14:21 14:36 14:47 Wound Center Nurse 2 #13 LEFT MEDIAL ANKLE- INFERIOR -Time 14:48 -Correct Patient Yes -Correct Side, Site, Position Yes -Correct Procedure Yes -Procedure Performed Yes -Type of Procedure Debridement -Clinical Debridement Subcutaneous -Post Debridement Size (cm) - Length 0.7 -Post Debridement Size (cm) - Width 0.8 -Post Debridement Size (cm) - Depth 0.1 -Total Square Cm 0.56 -Wound/Ulcer Outcome Not Healed -Ulcer Cleansing Rinsed/ Irrigated with Saline -Foul Odor after Cleansing No -Bioengineered Tissue No -Bleeding Controlled with Pressure -Treatment Response Procedure Tolerated Well #11 R Lat ankle -Time 14:21 14:37 14:50 -Correct Patient Yes Yes Yes -Correct Side, Site, Position Yes Yes Yes -Correct Procedure Yes Yes Yes -Procedure Performed Yes Yes Yes -Type of Procedure Debridement Debridement Debridement -Clinical Debridement Subcutaneous Subcutaneous Subcutaneous -Post Debridement Size (cm) - Length 0.5 0.3 0.3 -Post Debridement Size (cm) - Width 0.4 0.3 0.3 -Post Debridement Size (cm) - Depth 0.1 0.1 0.1 -Total Square Cm 0.20 0.09 0.09 -Wound/Ulcer Outcome Not Healed Not Healed Not Healed -Ulcer Cleansing Rinsed/ Not Cleansed Rinsed/ Irrigated with Irrigated with Saline Saline -Foul Odor after Cleansing No No No -Bioengineered Tissue No No -Bleeding Controlled with Pressure Pressure Pressure -Treatment Response Procedure Procedure Procedure Tolerated Well Tolerated Well Tolerated Well #9 L Med Ankle SUPERIOR -Time 14:22 14:38 14:50 -Correct Patient Yes Yes Yes -Correct Side, Site, Position Yes Yes Yes -Correct Procedure Yes Yes Yes -Procedure Performed Yes Yes -Type of Procedure Debridement Debridement -Clinical Debridement Subcutaneous Subcutaneous Subcutaneous -Post Debridement Size (cm) - Length 2.8 1.8 1.5 -Post Debridement Size (cm) - Width 1.5 0.6 0.6 -Post Debridement Size (cm) - Depth 0.1 0.1 0.1 -Total Square Cm 4.20 1.08 0.90 -Wound/Ulcer Outcome Not Healed Not Healed Not Healed -Ulcer Cleansing Rinsed/ Rinsed/ Rinsed/ Irrigated with Irrigated with Irrigated with Saline Saline Saline -Foul Odor after Cleansing No No No -Bioengineered Tissue No No No -Bleeding Controlled with Pressure Pressure Pressure -Treatment Response Procedure Procedure Procedure Tolerated Well Tolerated Well Tolerated Well Pain Scale: 0-10 Numeric Is Patient Pain Free? Yes Yes Yes 07/25/17 14:45 Wound Center Nurse 2 #13 LEFT MEDIAL ANKLE- INFERIOR -Time 14:45 -Correct Patient Yes -Correct Side, Site, Position Yes -Correct Procedure Yes -Procedure Performed Yes -Type of Procedure Debridement -Clinical Debridement Subcutaneous -Post Debridement Size (cm) - Length 0.8 -Post Debridement Size (cm) - Width 0.8 -Post Debridement Size (cm) - Depth 0.1 -Total Square Cm 0.64 -Wound/Ulcer Outcome Not Healed -Ulcer Cleansing Rinsed/ Irrigated with Saline -Foul Odor after Cleansing No -Bioengineered Tissue No -Bleeding Controlled with Pressure -Treatment Response Procedure Tolerated Well #11 R Lat ankle -Time 14:45 -Correct Patient Yes -Correct Side, Site, Position Yes -Correct Procedure Yes -Procedure Performed Yes -Type of Procedure Debridement -Clinical Debridement Subcutaneous -Post Debridement Size (cm) - Length 0.2 -Post Debridement Size (cm) - Width 0.2 -Post Debridement Size (cm) - Depth 0.1 -Total Square Cm 0.04 -Wound/Ulcer Outcome Not Healed -Ulcer Cleansing Rinsed/ Irrigated with Saline -Foul Odor after Cleansing No -Bioengineered Tissue No -Bleeding Controlled with Pressure -Treatment Response Procedure Tolerated Well #9 L [facility] Ankle SUPERIOR -Time 14:45 -Correct Patient Yes -Correct Side, Site, Position Yes -Correct Procedure Yes -Procedure Performed Yes -Type of Procedure Debridement -Clinical Debridement Subcutaneous -Post Debridement Size (cm) - Length 1.5 -Post Debridement Size (cm) - Width 0.4 -Post Debridement Size (cm) - Depth 0.1 -Total Square Cm 0.60 -Wound/Ulcer Outcome Not Healed -Ulcer Cleansing Rinsed/ Irrigated with Saline -Foul Odor after Cleansing No -Bioengineered Tissue No -Bleeding Controlled with Pressure -Treatment Response Procedure Tolerated Well Pain Scale: 0-10 Numeric Is Patient Pain Free? Yes Wound debrided: R lateral ankle Laterality: Right Wound Grade/Stage: full thickness VLU Type of Debridement: Excisional debridement Anesthesia Used: 4% Lidocaine Solution Depth: Down to and including healthy tissue, in the subcutaneous layer Percentage of wound debrided: 100 Instrument Used: 3mm curette Tissue Removed: fibrous slough Severity: Fat Layer Exposed Amount of bleeding with debridement: Mild Bleeding Controlled with: Pressure, Compression and gauze Patient tolerated procedure well - Additional Wound Wound debrided: L medial ankle x 2 Laterality: Left Wound Grade/Stage: full thickness VLU Type of Debridement: Excisional debridement Anesthesia Used: 4% Lidocaine Solution Depth: Down to and including healthy tissue, in the subcutaneous layer Percentage of wound debrided: 100 Instrument Used: 3mm curette Tissue Removed: fibrous slough Severity: Fat Layer Exposed Amount of bleeding with debridement: Mild Bleeding Controlled with: Pressure, Compression and gauze Patient tolerated procedure: Patient tolerated procedure well Assessment/Plan Active Problems Localized edema (Chronic) Non-pressure chronic ulcer of left ankle with fat layer exposed (Acute) Non-pressure chronic ulcer of right ankle with fat layer exposed (Acute) Venous insufficiency (chronic) (peripheral) (Chronic) I87.2 Assessment: See diagnoses Plan: SQ/excisional debridment b/l ankle ulcers as above. Referral to vascular surgery placed previously based on venous duplex results. Pt states he is not going to schedule an appointment. Discussed with him again that his wounds continue to recur due to venous insufficiency despite using compression, and he needs to see a vascular surgeon. Pt stated he understood, and he will consider it after the ulcers heal. Pt does well with 3M 2-layer coban wraps, re-apply today. Improved. Cont hydrofera blue, cont adaptic to wound bed prior to application of hydrofera blue. Add collagen hydrogel to wound bed. Monitor for redness, pus, malodor, warmth, pain, swelling as well as for N/V/F/C and go to the ED with these. Return in 1 week with me, call with questions. Discussed importance of adequate nutrition, especially increased protein intake to promote healing. Discussed importance of leg elevation, increased activity, and avoiding idle sitting or standing. Pt unable to take PO NSAIDs due to current use of Coumadin.
--- NOTE | 2017-07-25 14:56 | PN.PCM_ITS ---
(1) Non-pressure chronic ulcer of right ankle with fat layer exposed Status: Acute Current Visit: Yes Code(s): L97.312 - Non-pressure chronic ulcer of right ankle with fat layer exposed (2) Non-pressure chronic ulcer of left ankle with fat layer exposed Status: Acute Current Visit: Yes Code(s): L97.322 - Non-pressure chronic ulcer of left ankle with fat layer exposed (3) Venous insufficiency (chronic) (peripheral) Status: Chronic Current Visit: Yes Comment: I87.2 (4) Localized edema Status: Chronic Current Visit: Yes Code(s): R60.0 - Localized edema Type of Wound Date of Service: 07/25/17 Chief Complaint: R and L ankle ulcers History of Wound: This 76-year-old male presents [facility] to [facility] for recurrent venous leg ulcerations of the left and right ankles. 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 Patient is also known to have chronic leg edema. He is drinking a protein supplementation drink daily still at this time. He denies fever, chills, nausea, vomiting, leg pain during the day. He had his venous doppler with reflux in the past, but not recently. He denies leg redness or drainage. 05/02--Improved. Vascular testing scheduled for next week. Tolerating 3M 2-layer coban wraps and hydrofera blue well. Pain improved. Denies N/V/F/C. Denies redness, pus, malodor, warmth. 05/09--Improved. Vascular testing done and reviewed. Tolerating 3M 2-layer coban wraps and hydrofera blue well. Pain improved. Denies N/V/F/C. Denies redness, pus, malodor, warmth. 05/16--Improved. Vascular testing done and reviewed. Tolerating 3M 2-layer coban wraps and hydrofera blue well. Pain improved. Denies N/V/F/C. Denies redness, pus, malodor, warmth. 05/30/17--Improved. Tolerating 3M 2-layer coban wraps and hydrofera blue well. Almost no drainge-- hydrofera blue is sticking to the ulcers, so we will add adaptic first. Pain improved. Denies N/V/F/C. Denies redness, pus, malodor, warmth. 06/06-- Improved. Tolerating 3M 2-layer coban wraps and, adaptic, hydrofera blue well. Almost no drainage. Pain improved. Denies N/V/F/C. Denies redness, pus, malodor, warmth. 06/13--Improved. Tolerating 3M 2-layer coban wraps and, adaptic, hydrofera blue well. Almost no drainage. Pain improved. Denies N/V/F/ C. Denies redness, pus, malodor, warmth. Waiting for appointment with Dr. hCapman. 06/20--Improved. Tolerating 3M 2-layer coban wraps and, adaptic, hydrofera blue well. Almost no drainage. Pain improved. Denies N/V/F/C. Denies redness, pus, malodor, warmth. Was contacted by Dr. Chapman's office, but states he cannot schedule an appointment until he deals with his eyes. --Improved. Tolerating 3M 2-layer coban wraps and, adaptic, hydrofera blue well. Almost no drainage. Pain improved. Denies N/V/F/C. Denies redness, pus , malodor, warmth. R medial ulcer healed. 07/04--Improved. Tolerating 3M 2- layer coban wraps and, adaptic, hydrofera blue well. Almost no drainage. Pain improved. Denies N/V/F/C. Denies redness, pus, malodor, warmth. R medial ulcer remains healed. 07/11--Improved. Tolerating 3M 2-layer coban wraps and, adaptic, hydrofera blue well. Almost no drainage. Pain improved. Denies N/V/F/ C. Denies redness, pus, malodor, warmth. R medial ulcer remains healed. 07/18- -L medial ankle ulcer improved, but developed a new ulceration just distal to this one. R lateral ankle stable. Tolerating 3M 2-layer coban wraps, adaptic, hydrofera blue well. Almost no drainage. Denies N/V/F/C. Denies redness, pus , malodor, warmth. R medial ulcer remains healed. 07/25--Slowling improving. Tolerating 3M 2-layer coban wraps, adaptic, hydrofera blue well. Almost no drainage. Denies N/V/F/C. Denies redness, pus, malodor, warmth. R medial ulcer remains healed. Progress of Wound: Slowly improving. - Physical Exam Vital Signs Temp Pulse Resp BP 97.3 F L 76 18 135/69 H 07/25/17 14:11 07/25/17 14:11 07/25/17 14:11 07/25/17 14:11 General: Alert, Oriented x3, Cooperative, No apparent distress Skin: Ulcer/ Wound - R lateral ankle, L medial ankle x 2 with no erythema, no malodor, no pus, no calor, no pain. No clinical signs of acute bacterial infection noted. See wound/edema assessment below. Wound Measurements and Assessment WC - Nurse 1 - General Ulcer Measurement Start: 07/04/17 14:11 Freq: Status: Active Protocol: Activity Type Activity Date Activity User E-Sign Co-Sign Detail Recorded Client Recorded Date Recorded By Document 07/25/17 14:11 [facility] [id number] 07/25/17 14:26 [facility] 07/25/17 14:11 Wound Center Nurse 1 [Ulcer Assessment] #13 LEFT MEDIAL ANKLE- INFERIOR -Combined with other wound No -Current Size (cm) - Length 0.7 -Current Size (cm) - Width 0.7 -Current Size (cm) - Depth 0.1 -Total Square Cm 0.49 -Photo Taken No -Epithelialization Medium 34-66% -Tunneling No -Undermining/Tunneling No -Exudate Amt Small (1-33%) -Exudate Type Serosanguineous -Wound Margin Distinct, Outline Attached -Granulation Amt Small (1-33%) -Granulation Quality Red -Slough/Fibrin Yes -Necrosis Amt Small (1-33%) -Necrotic Tissue Type Adherent Slough -Texture (Nikia-wound Skin Appearance) Scarring -Moisture (Nikia-wound Skin Appearance Maceration ) Dry/Scaly -Color (Nikia-wound Skin Appearance) Assessed -Temperature (Nikia-wound Skin No Abnormality Appearance) (Pt Warm) -Tenderness on Palpation (Nikia-wound No Skin Appearance) -Ulcer Cleansing Wound Cleanser -Foul Odor after Cleansing No -Anesthetic Used 4% Lidocaine Solution #11 R Lat ankle -Combined with other wound No -Current Size (cm) - Length 0.1 -Current Size (cm) - Width 0.1 -Current Size (cm) - Depth 0.1 -Total Square Cm 0.01 -Photo Taken No -Epithelialization None Present -Tunneling No -Undermining/Tunneling No -Exudate Amt None Present (0 %) -Wound Margin Distinct, Outline Attached -Granulation Amt None Present (0 %) -Slough/Fibrin Yes -Necrosis Amt Large (67-100%) -Necrotic Tissue Type Adherent Slough -Structure Exposed None/Limited to Skin Breakdown -Texture (Nikia-wound Skin Appearance) Scarring -Moisture (Nikia-wound Skin Appearance Dry/Scaly ) -Color (Nikia-wound Skin Appearance) Assessed -Temperature (Nikia-wound Skin No Abnormality Appearance) (Pt Warm) -Tenderness on Palpation (Nikia-wound No Skin Appearance) -Ulcer Cleansing Wound Cleanser -Foul Odor after Cleansing No -Anesthetic Used 4% Lidocaine Solution #9 L Med Ankle SUPERIOR -Combined with other wound No -Current Size (cm) - Length 1.4 -Current Size (cm) - Width 0 -Current Size (cm) - Depth 0.2 -Total Square Cm 0 -Photo Taken No -Epithelialization None Present -Tunneling No -Undermining/Tunneling No -Exudate Amt Small (1-33%) -Exudate Type Serosanguineous -Wound Margin Distinct, Outline Attached -Granulation Amt Medium (34-66%) -Granulation Quality Pale Red -Slough/Fibrin Yes -Necrosis Amt Small (1-33%) -Necrotic Tissue Type Adherent Slough -Structure Exposed None/Limited to Skin Breakdown -Texture (Nikia-wound Skin Appearance) Scarring -Moisture (Nikia-wound Skin Appearance Maceration ) Dry/Scaly -Color (Nikia-wound Skin Appearance) Assessed -Temperature (Nikia-wound Skin No Abnormality Appearance) (Pt Warm) -Tenderness on Palpation (Nikia-wound No Skin Appearance) -Ulcer Cleansing Wound Cleanser -Foul Odor after Cleansing No -Anesthetic Used 4% Lidocaine Solution [Edema Assessment] -Lower Limb Edema Present Yes -Right Calf (cm) 40 -Right Ankle (cm) 21.3 -Left Calf (cm) 33.5 -Left Ankle (cm) 20.4 WC - Nurse 2 - General Ulcer CM Notes Start: 07/04/17 14:11 Freq: Status: Active Protocol: Activity Type Activity Date Activity User E-Sign Co-Sign Detail Recorded Client Recorded Date Recorded By Document 07/25/17 14:45 MW [id number] 07/25/17 14:46 MW 07/25/17 14:45 Wound Center Nurse 2 [Procedure/Treatment] #13 LEFT MEDIAL ANKLE- INFERIOR -Time 14:45 -Correct Patient Yes -Correct Side, Site, Position Yes -Correct Procedure Yes -Procedure Performed Yes -Type of Procedure Debridement -Clinical Debridement Subcutaneous -Post Debridement Size (cm) - Length 0.8 -Post Debridement Size (cm) - Width 0.8 -Post Debridement Size (cm) - Depth 0.1 -Total Square Cm 0.64 -Wound/Ulcer Outcome Not Healed -Ulcer Cleansing Rinsed/ Irrigated with Saline -Foul Odor after Cleansing No -Bioengineered Tissue No -Bleeding Controlled with Pressure -Treatment Response Procedure Tolerated Well #11 R Lat ankle -Time 14:45 -Correct Patient Yes -Correct Side, Site, Position Yes -Correct Procedure Yes -Procedure Performed Yes -Type of Procedure Debridement -Clinical Debridement Subcutaneous -Post Debridement Size (cm) - Length 0.2 -Post Debridement Size (cm) - Width 0.2 -Post Debridement Size (cm) - Depth 0.1 -Total Square Cm 0.04 -Wound/Ulcer Outcome Not Healed -Ulcer Cleansing Rinsed/ Irrigated with Saline -Foul Odor after Cleansing No -Bioengineered Tissue No -Bleeding Controlled with Pressure -Treatment Response Procedure Tolerated Well #9 L Med Ankle SUPERIOR -Time 14:45 -Correct Patient Yes -Correct Side, Site, Position Yes -Correct Procedure Yes -Procedure Performed Yes -Type of Procedure Debridement -Clinical Debridement Subcutaneous -Post Debridement Size (cm) - Length 1.5 -Post Debridement Size (cm) - Width 0.4 -Post Debridement Size (cm) - Depth 0.1 -Total Square Cm 0.60 -Wound/Ulcer Outcome Not Healed -Ulcer Cleansing Rinsed/ Irrigated with Saline -Foul Odor after Cleansing No -Bioengineered Tissue No -Bleeding Controlled with Pressure -Treatment Response Procedure Tolerated Well [See Physician Procedure note for Specifics] Pain Scale: 0-10 Numeric [Pain] -Is Patient Pain Free? Yes Debridement Note Post-Debridement Measurements/Treatment WC - Nurse 2 - General Ulcer CM Notes Start: 07/04/17 14:11 Freq: Status: Active Protocol: Activity Type Activity Date Activity User E-Sign Co-Sign Detail Recorded Client Recorded Date Recorded By Document 07/04/17 14:21 MW [id number] 07/04/17 14:22 MW Document 07/11/17 14:36 MW [id number] 07/11/17 14:39 MW Document 07/18/17 14:47 MW [id number] 07/18/17 14:52 MW Document 07/25/17 14:45 MW [id number] 07/25/17 14:46 MW 07/04/17 07/11/17 07/18/17 14:21 14:36 14:47 Wound Center Nurse 2 #13 LEFT MEDIAL ANKLE- INFERIOR -Time 14:48 -Correct Patient Yes -Correct Side, Site, Position Yes -Correct Procedure Yes -Procedure Performed Yes -Type of Procedure Debridement -Clinical Debridement Subcutaneous -Post Debridement Size (cm) - Length 0.7 -Post Debridement Size (cm) - Width 0.8 -Post Debridement Size (cm) - Depth 0.1 -Total Square Cm 0.56 -Wound/Ulcer Outcome Not Healed -Ulcer Cleansing Rinsed/ Irrigated with Saline -Foul Odor after Cleansing No -Bioengineered Tissue No -Bleeding Controlled with Pressure -Treatment Response Procedure Tolerated Well #11 R Lat ankle -Time 14:21 14:37 14:50 -Correct Patient Yes Yes Yes -Correct Side, Site, Position Yes Yes Yes -Correct Procedure Yes Yes Yes -Procedure Performed Yes Yes Yes -Type of Procedure Debridement Debridement Debridement -Clinical Debridement Subcutaneous Subcutaneous Subcutaneous -Post Debridement Size (cm) - Length 0.5 0.3 0.3 -Post Debridement Size (cm) - Width 0.4 0.3 0.3 -Post Debridement Size (cm) - Depth 0.1 0.1 0.1 -Total Square Cm 0.20 0.09 0.09 -Wound/Ulcer Outcome Not Healed Not Healed Not Healed -Ulcer Cleansing Rinsed/ Not Cleansed Rinsed/ Irrigated with Irrigated with Saline Saline -Foul Odor after Cleansing No No No -Bioengineered Tissue No No -Bleeding Controlled with Pressure Pressure Pressure -Treatment Response Procedure Procedure Procedure Tolerated Well Tolerated Well Tolerated Well #9 L Med Ankle SUPERIOR -Time 14:22 14:38 14:50 -Correct Patient Yes Yes Yes -Correct Side, Site, Position Yes Yes Yes -Correct Procedure Yes Yes Yes -Procedure Performed Yes Yes -Type of Procedure Debridement Debridement -Clinical Debridement Subcutaneous Subcutaneous Subcutaneous -Post Debridement Size (cm) - Length 2.8 1.8 1.5 -Post Debridement Size (cm) - Width 1.5 0.6 0.6 -Post Debridement Size (cm) - Depth 0.1 0.1 0.1 -Total Square Cm 4.20 1.08 0.90 -Wound/Ulcer Outcome Not Healed Not Healed Not Healed -Ulcer Cleansing Rinsed/ Rinsed/ Rinsed/ Irrigated with Irrigated with Irrigated with Saline Saline Saline -Foul Odor after Cleansing No No No -Bioengineered Tissue No No No -Bleeding Controlled with Pressure Pressure Pressure -Treatment Response Procedure Procedure Procedure Tolerated Well Tolerated Well Tolerated Well Pain Scale: 0-10 Numeric Is Patient Pain Free? Yes Yes Yes 07/25/17 14:45 Wound Center Nurse 2 #13 LEFT MEDIAL ANKLE- INFERIOR -Time 14:45 -Correct Patient Yes -Correct Side, Site, Position Yes -Correct Procedure Yes -Procedure Performed Yes -Type of Procedure Debridement -Clinical Debridement Subcutaneous -Post Debridement Size (cm) - Length 0.8 -Post Debridement Size (cm) - Width 0.8 -Post Debridement Size (cm) - Depth 0.1 -Total Square Cm 0.64 -Wound/Ulcer Outcome Not Healed -Ulcer Cleansing Rinsed/ Irrigated with Saline -Foul Odor after Cleansing No -Bioengineered Tissue No -Bleeding Controlled with Pressure -Treatment Response Procedure Tolerated Well #11 R Lat ankle -Time 14:45 -Correct Patient Yes -Correct Side, Site, Position Yes -Correct Procedure Yes -Procedure Performed Yes -Type of Procedure Debridement -Clinical Debridement Subcutaneous -Post Debridement Size (cm) - Length 0.2 -Post Debridement Size (cm) - Width 0.2 -Post Debridement Size (cm) - Depth 0.1 -Total Square Cm 0.04 -Wound/Ulcer Outcome Not Healed -Ulcer Cleansing Rinsed/ Irrigated with Saline -Foul Odor after Cleansing No -Bioengineered Tissue No -Bleeding Controlled with Pressure -Treatment Response Procedure Tolerated Well #9 L [facility] Ankle SUPERIOR -Time 14:45 -Correct Patient Yes -Correct Side, Site, Position Yes -Correct Procedure Yes -Procedure Performed Yes -Type of Procedure Debridement -Clinical Debridement Subcutaneous -Post Debridement Size (cm) - Length 1.5 -Post Debridement Size (cm) - Width 0.4 -Post Debridement Size (cm) - Depth 0.1 -Total Square Cm 0.60 -Wound/Ulcer Outcome Not Healed -Ulcer Cleansing Rinsed/ Irrigated with Saline -Foul Odor after Cleansing No -Bioengineered Tissue No -Bleeding Controlled with Pressure -Treatment Response Procedure Tolerated Well Pain Scale: 0-10 Numeric Is Patient Pain Free? Yes Wound debrided: R lateral ankle Laterality: Right Wound Grade/Stage: full thickness VLU Type of Debridement: Excisional debridement Anesthesia Used: 4% Lidocaine Solution Depth: Down to and including healthy tissue, in the subcutaneous layer Percentage of wound debrided: 100 Instrument Used: 3mm curette Tissue Removed: fibrous slough Severity: Fat Layer Exposed Amount of bleeding with debridement: Mild Bleeding Controlled with: Pressure, Compression and gauze Patient tolerated procedure well - Additional Wound Wound debrided: L medial ankle x 2 Laterality: Left Wound Grade/Stage: full thickness VLU Type of Debridement: Excisional debridement Anesthesia Used: 4% Lidocaine Solution Depth: Down to and including healthy tissue, in the subcutaneous layer Percentage of wound debrided: 100 Instrument Used: 3mm curette Tissue Removed: fibrous slough Severity: Fat Layer Exposed Amount of bleeding with debridement: Mild Bleeding Controlled with: Pressure, Compression and gauze Patient tolerated procedure: Patient tolerated procedure well Assessment/Plan Active Problems Localized edema (Chronic) Non-pressure chronic ulcer of left ankle with fat layer exposed (Acute) Non-pressure chronic ulcer of right ankle with fat layer exposed (Acute) Venous insufficiency (chronic) (peripheral) (Chronic) I87.2 Assessment: See diagnoses Plan: SQ/excisional debridment b/l ankle ulcers as above. Referral to vascular surgery placed previously based on venous duplex results. Pt states he is not going to schedule an appointment. Discussed with him again that his wounds continue to recur due to venous insufficiency despite using compression, and he needs to see a vascular surgeon. Pt stated he understood, and he will consider it after the ulcers heal. Pt does well with 3M 2-layer coban wraps, re-apply today. Improved. Cont hydrofera blue, cont adaptic to wound bed prior to application of hydrofera blue. Add collagen hydrogel to wound bed. Monitor for redness, pus, malodor, warmth, pain, swelling as well as for N/V/F/C and go to the ED with these. Return in 1 week with me, call with questions. Discussed importance of adequate nutrition, especially increased protein intake to promote healing. Discussed importance of leg elevation, increased activity, and avoiding idle sitting or standing. Pt unable to take PO NSAIDs due to current use of Coumadin.
== END 2017-07-26 23:59 ==
LOC: WC 14:30
PROVIDERS: Family Provider Family Medicine; PCP Family Medicine; Visit Provider Podiatrist Foot & Ankle Surgery
DX: I87.013 Postthrombotic syndrome with ulcer of bilateral lower extremity (principal); L97.312 Non-pressure chronic ulcer of right ankle with fat layer exposed; L97.322 Non-pressure chronic ulcer of left ankle with fat layer exposed; R60.0 Localized edema
CPT/HCPCS: 11042; 29581

== ENCOUNTER 2017-08-22 14:30 | Outpatient (RCR) | payer MEDICARE, SELFPAY ==
[2017-07-27 00:40] VITALS: BP 109/66; PULSE 76; RESP 18; TEMP 36.3
[2017-08-01 13:51] VITALS: BP 145/75; PULSE 79; RESP 18; TEMP 36.2; BMI 27.3
--- NOTE | 2017-08-01 14:41 | PCM.WC.PN ---
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 Patient is also known to have chronic leg edema. He is drinking a protein supplementation drink daily still at this time. He denies fever, chills, nausea, vomiting, leg pain during the day. He had his venous doppler with reflux in the past, but not recently. He denies leg redness or drainage. 05/02--Improved. Vascular testing scheduled for next week. Tolerating 3M 2-layer coban wraps and hydrofera blue well. Pain improved. Denies N/V/F/C. Denies redness, pus, malodor, warmth. 05/09--Improved. Vascular testing done and reviewed. Tolerating 3M 2-layer coban wraps and hydrofera blue well. Pain improved. Denies N/V/F/C. Denies redness, pus, malodor, warmth. 05/16--Improved. Vascular testing done and reviewed. Tolerating 3M 2-layer coban wraps and hydrofera blue well. Pain improved. Denies N/V/F/C. Denies redness, pus, malodor, warmth. 05/30/17--Improved. Tolerating 3M 2-layer coban wraps and hydrofera blue well. Almost no drainge--hydrofera blue is sticking to the ulcers, so we will add adaptic first. Pain improved. Denies N/V/F/C. Denies redness, pus, malodor, warmth. 06/06--Improved. Tolerating 3M 2-layer coban wraps and, adaptic, hydrofera blue well. Almost no drainage. Pain improved. Denies N/V/F/C. Denies redness, pus, malodor, warmth. 06/13--Improved. Tolerating 3M 2-layer coban wraps and, adaptic, hydrofera blue well. Almost no drainage. Pain improved. Denies N/V/F/C. Denies redness, pus, malodor, warmth. Waiting for appointment with Dr. Chapman. 06/20--Improved. Tolerating 3M 2-layer coban wraps and, adaptic, hydrofera blue well. Almost no drainage. Pain improved. Denies N/V/F/C. Denies redness, pus, malodor, warmth. Was contacted by Dr. Chapman's office, but states he cannot schedule an appointment until he deals with his eyes. 06/27--Improved. Tolerating 3M 2-layer coban wraps and, adaptic, hydrofera blue well. Almost no drainage. Pain improved. Denies N/V/F/C. Denies redness, pus, malodor, warmth. R medial ulcer healed. 07/04--Improved. Tolerating 3M 2-layer coban wraps and, adaptic, hydrofera blue well. Almost no drainage. Pain improved. Denies N/V/F/C. Denies redness, pus, malodor, warmth. R medial ulcer remains healed. 07/11--Improved. Tolerating 3M 2-layer coban wraps and, adaptic, hydrofera blue well. Almost no drainage. Pain improved. Denies N/V/F/C. Denies redness, pus, malodor, warmth. R medial ulcer remains healed. 07/18--L medial ankle ulcer improved, but developed a new ulceration just distal to this one. R lateral ankle stable. Tolerating 3M 2-layer coban wraps, adaptic, hydrofera blue well. Almost no drainage. Denies N/V/F/C. Denies redness, pus, malodor, warmth. R medial ulcer remains healed. 07/25--Slowling improving. Tolerating 3M 2-layer coban wraps, adaptic, hydrofera blue well. Almost no drainage. Denies N/V/F/C. Denies redness, pus, malodor, warmth. R medial ulcer remains healed. 08/01--Slowling improving. Tolerating 3M 2-layer coban wraps, adaptic, hydrofera blue well. Almost no drainage. Denies N/V/F/C. Denies redness, pus, malodor, warmth. R medial ulcer remains healed. Distal (inferior) ulcer L medial ankle healed. Progress of Wound: Slowly improving. - Physical Exam Vital Signs Temp Pulse Resp BP 97.2 F L 79 18 145/75 H 08/01/17 13:51 08/01/17 13:51 08/01/17 13:51 08/01/17 13:51 General: Alert, Oriented x3, Cooperative, No apparent distress Extremities: Edema Skin: Ulcer/ Wound - R lateral ankle, L medial ankle with no erythema, no malodor, no pus, no pain, no calor. No clinical signs of acute bacterial infection noted. See wound/edema assessment below. Wound Measurements and Assessment WC - Nurse 1 - General Ulcer Measurement Start: 08/01/17 13:50 Freq: Status: Active Protocol: Activity Type Activity Date Activity User E-Sign Co-Sign Detail Recorded Client Recorded Date Recorded By Document 08/01/17 13:51 DL [id number] 08/01/17 14:05 DL 08/01/17 13:51 Wound Center Nurse 1 [Ulcer Assessment] #13 LEFT MEDIAL ANKLE- INFERIOR -Current Size (cm) - Length 0.5 -Current Size (cm) - Width 0.5 -Current Size (cm) - Depth 0.1 -Total Square Cm 0.25 -Photo Taken No -Exudate Amt None Present (0 %) -Wound Margin Flat & Intact -Granulation Amt None Present (0 %) -Necrosis Amt Small (1-33%) -Necrotic Tissue Type Adherent Slough -Structure Exposed N/A -Texture (Nikia-wound Skin Appearance) Scarring -Moisture (Nikia-wound Skin Appearance No Abnormality ) Dry/Scaly -Color (Nikia-wound Skin Appearance) Hemosiderin Staining -Temperature (Nikia-wound Skin No Abnormality Appearance) (Pt Warm) -Ulcer Cleansing Wound Cleanser -Foul Odor after Cleansing No -Anesthetic Used 4% Lidocaine Solution #11 R Lat ankle -Current Size (cm) - Length 0.8 -Current Size (cm) - Width 0.7 -Current Size (cm) - Depth 0.1 -Total Square Cm 0.56 -Photo Taken No -Exudate Amt None Present (0 %) -Wound Margin Flat & Intact -Granulation Amt None Present (0 %) -Necrosis Amt Large (67-100%) -Necrotic Tissue Type Adherent Slough -Structure Exposed N/A -Texture (Nikia-wound Skin Appearance) Scarring -Moisture (Nikia-wound Skin Appearance Dry/Scaly ) -Color (Nikia-wound Skin Appearance) Hemosiderin Staining -Temperature (Nikia-wound Skin No Abnormality Appearance) (Pt Warm) -Tenderness on Palpation (Nikia-wound No Skin Appearance) -Ulcer Cleansing Wound Cleanser -Foul Odor after Cleansing No -Anesthetic Used 4% Lidocaine Solution #9 L Med Ankle SUPERIOR (cluster) -Current Size (cm) - Length 1 -Current Size (cm) - Width 0.9 -Current Size (cm) - Depth 0.2 -Total Square Cm 0.9 -Photo Taken No -Exudate Amt Small (1-33%) -Exudate Type Serosanguineous -Wound Margin Distinct, Outline Attached -Granulation Amt Large (67-100%) -Granulation Quality Ross -Necrosis Amt Small (1-33%) -Necrotic Tissue Type Adherent Slough -Structure Exposed N/A -Texture (Nikia-wound Skin Appearance) Scarring -Moisture (Nikia-wound Skin Appearance Maceration ) -Color (Nikia-wound Skin Appearance) Hemosiderin Staining -Temperature (Nikia-wound Skin No Abnormality Appearance) (Pt Warm) -Ulcer Cleansing Wound Cleanser -Foul Odor after Cleansing No -Anesthetic Used 4% Lidocaine Solution [Edema Assessment] -Right Calf (cm) 37 -Right Ankle (cm) 20.5 -Left Calf (cm) 31.4 -Left Ankle (cm) 19 WC - Nurse 2 - General Ulcer CM Notes Start: 08/01/17 13:50 Freq: Status: Active Protocol: Activity Type Activity Date Activity User E-Sign Co-Sign Detail Recorded Client Recorded Date Recorded By Document 08/01/17 14:16 MW [id number] 08/01/17 14:18 MW 03/06/18 14:16 Wound Center Nurse 2 [Procedure/Treatment] #13 LEFT MEDIAL ANKLE- INFERIOR -Time 14:16 -Correct Patient Yes -Correct Side, Site, Position Yes -Correct Procedure Yes -Procedure Performed No -Post Debridement Size (cm) - Length 0 -Post Debridement Size (cm) - Width 0 -Post Debridement Size (cm) - Depth 0 -Total Square Cm 0 -Wound/Ulcer Outcome Healed- Epithelialized -Ulcer Cleansing Not Cleansed -Foul Odor after Cleansing No -Bioengineered Tissue No -Bleeding Controlled with NA -Treatment Response Procedure Tolerated Well #11 R Lat ankle -Time 14:17 -Correct Patient Yes -Correct Side, Site, Position Yes -Correct Procedure Yes -Procedure Performed Yes -Type of Procedure Debridement -Clinical Debridement Subcutaneous -Post Debridement Size (cm) - Length 0.3 -Post Debridement Size (cm) - Width 0.3 -Post Debridement Size (cm) - Depth 0.2 -Total Square Cm 0.09 -Wound/Ulcer Outcome Not Healed -Ulcer Cleansing Rinsed/ Irrigated with Saline -Foul Odor after Cleansing No -Bioengineered Tissue No -Bleeding Controlled with Pressure -Treatment Response Procedure Tolerated Well #9 L Med Ankle SUPERIOR (cluster) -Time 14:17 -Correct Patient Yes -Correct Side, Site, Position Yes -Correct Procedure Yes -Procedure Performed Yes -Type of Procedure Debridement -Clinical Debridement Subcutaneous -Post Debridement Size (cm) - Length 1.2 -Post Debridement Size (cm) - Width 1.0 -Post Debridement Size (cm) - Depth 0.1 -Total Square Cm 1.20 -Wound/Ulcer Outcome Not Healed -Ulcer Cleansing Rinsed/ Irrigated with Saline -Foul Odor after Cleansing No -Bioengineered Tissue No -Bleeding Controlled with Pressure -Treatment Response Procedure Tolerated Well [See Physician Procedure note for Specifics] Pain Scale: 0-10 Numeric [Pain] -Is Patient Pain Free? Yes Debridement Note Post-Debridement Measurements/Treatment WC - Nurse 2 - General Ulcer CM Notes Start: 08/01/17 13:50 Freq: Status: Active Protocol: Activity Type Activity Date Activity User E-Sign Co-Sign Detail Recorded Client Recorded Date Recorded By Document 08/01/17 14:16 MW [email or web address] 08/01/17 14:18 MW 08/01/17 14:16 Wound Center Nurse 2 #13 LEFT MEDIAL ANKLE- INFERIOR -Time 14:16 -Correct Patient Yes -Correct Side, Site, Position Yes -Correct Procedure Yes -Procedure Performed No -Post Debridement Size (cm) - Length 0 -Post Debridement Size (cm) - Width 0 -Post Debridement Size (cm) - Depth 0 -Total Square Cm 0 -Wound/Ulcer Outcome Healed- Epithelialized -Ulcer Cleansing Not Cleansed -Foul Odor after Cleansing No -Bioengineered Tissue No -Bleeding Controlled with NA -Treatment Response Procedure Tolerated Well #11 R Lat ankle -Time 14:17 -Correct Patient Yes -Correct Side, Site, Position Yes -Correct Procedure Yes -Procedure Performed Yes -Type of Procedure Debridement -Clinical Debridement Subcutaneous -Post Debridement Size (cm) - Length 0.3 -Post Debridement Size (cm) - Width 0.3 -Post Debridement Size (cm) - Depth 0.2 -Total Square Cm 0.09 -Wound/Ulcer Outcome Not Healed -Ulcer Cleansing Rinsed/ Irrigated with Saline -Foul Odor after Cleansing No -Bioengineered Tissue No -Bleeding Controlled with Pressure -Treatment Response Procedure Tolerated Well #9 L Med Ankle SUPERIOR (cluster) -Time 14:17 -Correct Patient Yes -Correct Side, Site, Position Yes -Correct Procedure Yes -Procedure Performed Yes -Type of Procedure Debridement -Clinical Debridement Subcutaneous -Post Debridement Size (cm) - Length 1.2 -Post Debridement Size (cm) - Width 1.0 -Post Debridement Size (cm) - Depth 0.1 -Total Square Cm 1.20 -Wound/Ulcer Outcome Not Healed -Ulcer Cleansing Rinsed/ Irrigated with Saline -Foul Odor after Cleansing No -Bioengineered Tissue No -Bleeding Controlled with Pressure -Treatment Response Procedure Tolerated Well Pain Scale: 0-10 Numeric Is Patient Pain Free? Yes Wound debrided: R lateral ankle Laterality: Right Wound Grade/Stage: full thickness VLU Type of Debridement: Excisional debridement Anesthesia Used: 4% Lidocaine Solution Depth: Down to and including healthy tissue, in the subcutaneous layer Percentage of wound debrided: 100 Instrument Used: 3mm curette Tissue Removed: fibrous slough Severity: Fat Layer Exposed Amount of bleeding with debridement: Mild Bleeding Controlled with: Pressure, Compression and gauze Patient tolerated procedure well - Additional Wound Wound debrided: L medial ankle Laterality: Left Wound Grade/Stage: full thickness VLU Type of Debridement: Excisional debridement Anesthesia Used: 4% Lidocaine Solution Depth: Down to and including healthy tissue, in the subcutaneous layer Percentage of wound debrided: 100 Instrument Used: 3mm curette Tissue Removed: fibrous slough Severity: Fat Layer Exposed Amount of bleeding with debridement: Mild Bleeding Controlled with: Pressure Patient tolerated procedure: Patient tolerated procedure well Assessment/Plan Active Problems Non-pressure chronic ulcer of left ankle with fat layer exposed (Acute) Non-pressure chronic ulcer of right ankle with fat layer exposed (Acute) Venous insufficiency (chronic) (peripheral) (Chronic) I87.2 Assessment: See diagnoses Plan: SQ/excisional debridment b/l ankle ulcers as above. Referral to vascular surgery placed previously based on venous duplex results. Pt states he is not going to schedule an appointment. Discussed with him again that his wounds continue to recur due to venous insufficiency despite using compression, and he needs to see a vascular surgeon. Pt stated he understood, and he will consider it after the ulcers heal. Pt does well with 3M 2-layer coban wraps, re-apply today. Improved. Cont hydrofera blue, cont adaptic to wound bed prior to application of hydrofera blue. Cont collagen hydrogel to wound bed. Monitor for redness, pus, malodor, warmth, pain, swelling as well as for N/V/F/C and go to the ED with these. Return in 1 week with me, call with questions. Discussed importance of adequate nutrition, especially increased protein intake to promote healing. Discussed importance of leg elevation, increased activity, and avoiding idle sitting or standing. Pt unable to take PO NSAIDs due to current use of Coumadin.
--- NOTE | 2017-08-01 14:44 | PN.PCM_ITS ---
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 Patient is also known to have chronic leg edema. He is drinking a protein supplementation drink daily still at this time. He denies fever, chills, nausea, vomiting, leg pain during the day. He had his venous doppler with reflux in the past, but not recently. He denies leg redness or drainage. 05/02--Improved. Vascular testing scheduled for next week. Tolerating 3M 2-layer coban wraps and hydrofera blue well. Pain improved. Denies N/V/F/C. Denies redness, pus, malodor, warmth. 05/09--Improved. Vascular testing done and reviewed. Tolerating 3M 2-layer coban wraps and hydrofera blue well. Pain improved. Denies N/V/F/C. Denies redness, pus, malodor, warmth. 05/16--Improved. Vascular testing done and reviewed. Tolerating 3M 2-layer coban wraps and hydrofera blue well. Pain improved. Denies N/V/F/C. Denies redness, pus, malodor, warmth. 05/30/17--Improved. Tolerating 3M 2-layer coban wraps and hydrofera blue well. Almost no drainge-- hydrofera blue is sticking to the ulcers, so we will add adaptic first. Pain improved. Denies N/V/F/C. Denies redness, pus, malodor, warmth. 06/06-- Improved. Tolerating 3M 2-layer coban wraps and, adaptic, hydrofera blue well. Almost no drainage. Pain improved. Denies N/V/F/C. Denies redness, pus, malodor, warmth. 06/13--Improved. Tolerating 3M 2-layer coban wraps and, adaptic, hydrofera blue well. Almost no drainage. Pain improved. Denies N/V/F/ C. Denies redness, pus, malodor, warmth. Waiting for appointment with Dr. Chapman. 06/20--Improved. Tolerating 3M 2-layer coban wraps and, adaptic, hydrofera blue well. Almost no drainage. Pain improved. Denies N/V/F/C. Denies redness, pus, malodor, warmth. Was contacted by Dr. Chapman's office, but states he cannot schedule an appointment until he deals with his eyes. --Improved. Tolerating 3M 2-layer coban wraps and, adaptic, hydrofera blue well. Almost no drainage. Pain improved. Denies N/V/F/C. Denies redness, pus , malodor, warmth. R medial ulcer healed. 07/04--Improved. Tolerating 3M 2- layer coban wraps and, adaptic, hydrofera blue well. Almost no drainage. Pain improved. Denies N/V/F/C. Denies redness, pus, malodor, warmth. R medial ulcer remains healed. 07/11--Improved. Tolerating 3M 2-layer coban wraps and, adaptic, hydrofera blue well. Almost no drainage. Pain improved. Denies N/V/F/ C. Denies redness, pus, malodor, warmth. R medial ulcer remains healed. 07/18- -L medial ankle ulcer improved, but developed a new ulceration just distal to this one. R lateral ankle stable. Tolerating 3M 2-layer coban wraps, adaptic, hydrofera blue well. Almost no drainage. Denies N/V/F/C. Denies redness, pus , malodor, warmth. R medial ulcer remains healed. 07/25--Slowling improving. Tolerating 3M 2-layer coban wraps, adaptic, hydrofera blue well. Almost no drainage. Denies N/V/F/C. Denies redness, pus, malodor, warmth. R medial ulcer remains healed. 08/01--Slowling improving. Tolerating 3M 2-layer coban wraps, adaptic, hydrofera blue well. Almost no drainage. Denies N/V/F/C. Denies redness, pus, malodor, warmth. R medial ulcer remains healed. Distal ( inferior) ulcer L medial ankle healed. Progress of Wound: Slowly improving. - Physical Exam Vital Signs Temp Pulse Resp BP 97.2 F L 79 18 145/75 H 08/01/17 13:51 08/01/17 13:51 08/01/17 13:51 08/01/17 13:51 General: Alert, Oriented x3, Cooperative, No apparent distress Extremities: Edema Skin: Ulcer/ Wound - R lateral ankle, L medial ankle with no erythema, no malodor, no pus, no pain, no calor. No clinical signs of acute bacterial infection noted. See wound/edema assessment below. Wound Measurements and Assessment WC - Nurse 1 - General Ulcer Measurement Start: 08/01/17 13:50 Freq: Status: Active Protocol: Activity Type Activity Date Activity User E-Sign Co-Sign Detail Recorded Client Recorded Date Recorded By Document 08/01/17 13:51 DL [id number] 08/01/17 14:05 DL 08/01/17 13:51 Wound Center Nurse 1 [Ulcer Assessment] #13 LEFT MEDIAL ANKLE- INFERIOR -Current Size (cm) - Length 0.5 -Current Size (cm) - Width 0.5 -Current Size (cm) - Depth 0.1 -Total Square Cm 0.25 -Photo Taken No -Exudate Amt None Present (0 %) -Wound Margin Flat & Intact -Granulation Amt None Present (0 %) -Necrosis Amt Small (1-33%) -Necrotic Tissue Type Adherent Slough -Structure Exposed N/A -Texture (Nikia-wound Skin Appearance) Scarring -Moisture (Nikia-wound Skin Appearance No Abnormality ) Dry/Scaly -Color (Nikia-wound Skin Appearance) Hemosiderin Staining -Temperature (Nikia-wound Skin No Abnormality Appearance) (Pt Warm) -Ulcer Cleansing Wound Cleanser -Foul Odor after Cleansing No -Anesthetic Used 4% Lidocaine Solution #11 R Lat ankle -Current Size (cm) - Length 0.8 -Current Size (cm) - Width 0.7 -Current Size (cm) - Depth 0.1 -Total Square Cm 0.56 -Photo Taken No -Exudate Amt None Present (0 %) -Wound Margin Flat & Intact -Granulation Amt None Present (0 %) -Necrosis Amt Large (67-100%) -Necrotic Tissue Type Adherent Slough -Structure Exposed N/A -Texture (Nikia-wound Skin Appearance) Scarring -Moisture (Nikia-wound Skin Appearance Dry/Scaly ) -Color (Nikia-wound Skin Appearance) Hemosiderin Staining -Temperature (Nikia-wound Skin No Abnormality Appearance) (Pt Warm) -Tenderness on Palpation (Nikia-wound No Skin Appearance) -Ulcer Cleansing Wound Cleanser -Foul Odor after Cleansing No -Anesthetic Used 4% Lidocaine Solution #9 L Med Ankle SUPERIOR (cluster) -Current Size (cm) - Length 1 -Current Size (cm) - Width 0.9 -Current Size (cm) - Depth 0.2 -Total Square Cm 0.9 -Photo Taken No -Exudate Amt Small (1-33%) -Exudate Type Serosanguineous -Wound Margin Distinct, Outline Attached -Granulation Amt Large (67-100%) -Granulation Quality Brodnax -Necrosis Amt Small (1-33%) -Necrotic Tissue Type Adherent Slough -Structure Exposed N/A -Texture (Nikia-wound Skin Appearance) Scarring -Moisture (Nikia-wound Skin Appearance Maceration ) -Color (Nikia-wound Skin Appearance) Hemosiderin Staining -Temperature (Nikia-wound Skin No Abnormality Appearance) (Pt Warm) -Ulcer Cleansing Wound Cleanser -Foul Odor after Cleansing No -Anesthetic Used 4% Lidocaine Solution [Edema Assessment] -Right Calf (cm) 37 -Right Ankle (cm) 20.5 -Left Calf (cm) 31.4 -Left Ankle (cm) 19 WC - Nurse 2 - General Ulcer CM Notes Start: 08/01/17 13:50 Freq: Status: Active Protocol: Activity Type Activity Date Activity User E-Sign Co-Sign Detail Recorded Client Recorded Date Recorded By Document 08/01/17 14:16 MW [id number] 08/01/17 14:18 MW 03/06/18 14:16 Wound Center Nurse 2 [Procedure/Treatment] #13 LEFT MEDIAL ANKLE- INFERIOR -Time 14:16 -Correct Patient Yes -Correct Side, Site, Position Yes -Correct Procedure Yes -Procedure Performed No -Post Debridement Size (cm) - Length 0 -Post Debridement Size (cm) - Width 0 -Post Debridement Size (cm) - Depth 0 -Total Square Cm 0 -Wound/Ulcer Outcome Healed- Epithelialized -Ulcer Cleansing Not Cleansed -Foul Odor after Cleansing No -Bioengineered Tissue No -Bleeding Controlled with NA -Treatment Response Procedure Tolerated Well #11 R Lat ankle -Time 14:17 -Correct Patient Yes -Correct Side, Site, Position Yes -Correct Procedure Yes -Procedure Performed Yes -Type of Procedure Debridement -Clinical Debridement Subcutaneous -Post Debridement Size (cm) - Length 0.3 -Post Debridement Size (cm) - Width 0.3 -Post Debridement Size (cm) - Depth 0.2 -Total Square Cm 0.09 -Wound/Ulcer Outcome Not Healed -Ulcer Cleansing Rinsed/ Irrigated with Saline -Foul Odor after Cleansing No -Bioengineered Tissue No -Bleeding Controlled with Pressure -Treatment Response Procedure Tolerated Well #9 L Med Ankle SUPERIOR (cluster) -Time 14:17 -Correct Patient Yes -Correct Side, Site, Position Yes -Correct Procedure Yes -Procedure Performed Yes -Type of Procedure Debridement -Clinical Debridement Subcutaneous -Post Debridement Size (cm) - Length 1.2 -Post Debridement Size (cm) - Width 1.0 -Post Debridement Size (cm) - Depth 0.1 -Total Square Cm 1.20 -Wound/Ulcer Outcome Not Healed -Ulcer Cleansing Rinsed/ Irrigated with Saline -Foul Odor after Cleansing No -Bioengineered Tissue No -Bleeding Controlled with Pressure -Treatment Response Procedure Tolerated Well [See Physician Procedure note for Specifics] Pain Scale: 0-10 Numeric [Pain] -Is Patient Pain Free? Yes Debridement Note Post-Debridement Measurements/Treatment WC - Nurse 2 - General Ulcer CM Notes Start: 08/01/17 13:50 Freq: Status: Active Protocol: Activity Type Activity Date Activity User E-Sign Co-Sign Detail Recorded Client Recorded Date Recorded By Document 08/01/17 14:16 MW [id number] 08/01/17 14:18 MW 08/01/17 14:16 Wound Center Nurse 2 #13 LEFT MEDIAL ANKLE- INFERIOR -Time 14:16 -Correct Patient Yes -Correct Side, Site, Position Yes -Correct Procedure Yes -Procedure Performed No -Post Debridement Size (cm) - Length 0 -Post Debridement Size (cm) - Width 0 -Post Debridement Size (cm) - Depth 0 -Total Square Cm 0 -Wound/Ulcer Outcome Healed- Epithelialized -Ulcer Cleansing Not Cleansed -Foul Odor after Cleansing No -Bioengineered Tissue No -Bleeding Controlled with NA -Treatment Response Procedure Tolerated Well #11 R Lat ankle -Time 14:17 -Correct Patient Yes -Correct Side, Site, Position Yes -Correct Procedure Yes -Procedure Performed Yes -Type of Procedure Debridement -Clinical Debridement Subcutaneous -Post Debridement Size (cm) - Length 0.3 -Post Debridement Size (cm) - Width 0.3 -Post Debridement Size (cm) - Depth 0.2 -Total Square Cm 0.09 -Wound/Ulcer Outcome Not Healed -Ulcer Cleansing Rinsed/ Irrigated with Saline -Foul Odor after Cleansing No -Bioengineered Tissue No -Bleeding Controlled with Pressure -Treatment Response Procedure Tolerated Well #9 L Med Ankle SUPERIOR (cluster) -Time 14:17 -Correct Patient Yes -Correct Side, Site, Position Yes -Correct Procedure Yes -Procedure Performed Yes -Type of Procedure Debridement -Clinical Debridement Subcutaneous -Post Debridement Size (cm) - Length 1.2 -Post Debridement Size (cm) - Width 1.0 -Post Debridement Size (cm) - Depth 0.1 -Total Square Cm 1.20 -Wound/Ulcer Outcome Not Healed -Ulcer Cleansing Rinsed/ Irrigated with Saline -Foul Odor after Cleansing No -Bioengineered Tissue No -Bleeding Controlled with Pressure -Treatment Response Procedure Tolerated Well Pain Scale: 0-10 Numeric Is Patient Pain Free? Yes Wound debrided: R lateral ankle Laterality: Right Wound Grade/Stage: full thickness VLU Type of Debridement: Excisional debridement Anesthesia Used: 4% Lidocaine Solution Depth: Down to and including healthy tissue, in the subcutaneous layer Percentage of wound debrided: 100 Instrument Used: 3mm curette Tissue Removed: fibrous slough Severity: Fat Layer Exposed Amount of bleeding with debridement: Mild Bleeding Controlled with: Pressure, Compression and gauze Patient tolerated procedure well - Additional Wound Wound debrided: L medial ankle Laterality: Left Wound Grade/Stage: full thickness VLU Type of Debridement: Excisional debridement Anesthesia Used: 4% Lidocaine Solution Depth: Down to and including healthy tissue, in the subcutaneous layer Percentage of wound debrided: 100 Instrument Used: 3mm curette Tissue Removed: fibrous slough Severity: Fat Layer Exposed Amount of bleeding with debridement: Mild Bleeding Controlled with: Pressure Patient tolerated procedure: Patient tolerated procedure well Assessment/Plan Active Problems Non-pressure chronic ulcer of left ankle with fat layer exposed (Acute) Non-pressure chronic ulcer of right ankle with fat layer exposed (Acute) Venous insufficiency (chronic) (peripheral) (Chronic) I87.2 Assessment: See diagnoses Plan: SQ/excisional debridment b/l ankle ulcers as above. Referral to vascular surgery placed previously based on venous duplex results. Pt states he is not going to schedule an appointment. Discussed with him again that his wounds continue to recur due to venous insufficiency despite using compression, and he needs to see a vascular surgeon. Pt stated he understood, and he will consider it after the ulcers heal. Pt does well with 3M 2-layer coban wraps, re-apply today. Improved. Cont hydrofera blue, cont adaptic to wound bed prior to application of hydrofera blue. Cont collagen hydrogel to wound bed. Monitor for redness, pus, malodor, warmth, pain, swelling as well as for N/V/F/C and go to the ED with these. Return in 1 week with me, call with questions. Discussed importance of adequate nutrition, especially increased protein intake to promote healing. Discussed importance of leg elevation, increased activity, and avoiding idle sitting or standing. Pt unable to take PO NSAIDs due to current use of Coumadin.
[2017-08-08 13:42] VITALS: RESP 16; TEMP 36.6; BMI 27.3
--- NOTE | 2017-08-08 16:35 | PCM.WC.PN ---
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 Patient is also known to have chronic leg edema. He is drinking a protein supplementation drink daily still at this time. He denies fever, chills, nausea, vomiting, leg pain during the day. He had his venous doppler with reflux in the past, but not recently. He denies leg redness or drainage. 05/02--Improved. Vascular testing scheduled for next week. Tolerating 3M 2-layer coban wraps and hydrofera blue well. Pain improved. Denies N/V/F/C. Denies redness, pus, malodor, warmth. 05/09--Improved. Vascular testing done and reviewed. Tolerating 3M 2-layer coban wraps and hydrofera blue well. Pain improved. Denies N/V/F/C. Denies redness, pus, malodor, warmth. 05/16--Improved. Vascular testing done and reviewed. Tolerating 3M 2-layer coban wraps and hydrofera blue well. Pain improved. Denies N/V/F/C. Denies redness, pus, malodor, warmth. 05/30/17--Improved. Tolerating 3M 2-layer coban wraps and hydrofera blue well. Almost no drainge--hydrofera blue is sticking to the ulcers, so we will add adaptic first. Pain improved. Denies N/V/F/C. Denies redness, pus, malodor, warmth. 06/06--Improved. Tolerating 3M 2-layer coban wraps and, adaptic, hydrofera blue well. Almost no drainage. Pain improved. Denies N/V/F/C. Denies redness, pus, malodor, warmth. 06/13--Improved. Tolerating 3M 2-layer coban wraps and, adaptic, hydrofera blue well. Almost no drainage. Pain improved. Denies N/V/F/C. Denies redness, pus, malodor, warmth. Waiting for appointment with Dr. Chapman. 06/20--Improved. Tolerating 3M 2-layer coban wraps and, adaptic, hydrofera blue well. Almost no drainage. Pain improved. Denies N/V/F/C. Denies redness, pus, malodor, warmth. Was contacted by Dr. Chapman's office, but states he cannot schedule an appointment until he deals with his eyes. 06/27--Improved. Tolerating 3M 2-layer coban wraps and, adaptic, hydrofera blue well. Almost no drainage. Pain improved. Denies N/V/F/C. Denies redness, pus, malodor, warmth. R medial ulcer healed. 07/04--Improved. Tolerating 3M 2-layer coban wraps and, adaptic, hydrofera blue well. Almost no drainage. Pain improved. Denies N/V/F/C. Denies redness, pus, malodor, warmth. R medial ulcer remains healed. 07/11--Improved. Tolerating 3M 2-layer coban wraps and, adaptic, hydrofera blue well. Almost no drainage. Pain improved. Denies N/V/F/C. Denies redness, pus, malodor, warmth. R medial ulcer remains healed. 07/18--L medial ankle ulcer improved, but developed a new ulceration just distal to this one. R lateral ankle stable. Tolerating 3M 2-layer coban wraps, adaptic, hydrofera blue well. Almost no drainage. Denies N/V/F/C. Denies redness, pus, malodor, warmth. R medial ulcer remains healed. 07/25--Slowling improving. Tolerating 3M 2-layer coban wraps, adaptic, hydrofera blue well. Almost no drainage. Denies N/V/F/C. Denies redness, pus, malodor, warmth. R medial ulcer remains healed. 08/01--Slowling improving. Tolerating 3M 2-layer coban wraps, adaptic, hydrofera blue well. Almost no drainage. Denies N/V/F/C. Denies redness, pus, malodor, warmth. R medial ulcer remains healed. Distal (inferior) ulcer L medial ankle healed. 08/08--Slowly improving. Tolerating 3M 2-layer coban wraps, adaptic, hydrofera blue well. Almost no drainage. Denies N/V/F/C. Denies redness, pus, malodor, warmth. R medial ulcer remains healed. R lateral ankle ulcer healed. Distal (inferior) ulcer L medial ankle healed. L medial ulcer improved. Progress of Wound: Slowly improving. R ankle ulcer healed. L medial ankle ulcer imrpoved. - Physical Exam Vital Signs Temp Pulse Resp BP 98 F 79 16 145/75 H 08/08/17 13:42 08/01/17 13:51 08/08/17 13:42 08/01/17 13:51 General: Alert, Oriented x3, Cooperative, No apparent distress Skin: Ulcer/ Wound - R lateral ankle ulcer covered with epithelial tissue. L medial ankle ulcer improved. L medial ankle with no erythema, no malodor, no pus, no calor. No clinical signs of acute bacterial infection noted. See nurses wound/edema assessment below. Wound Measurements and Assessment WC - Nurse 1 - General Ulcer Measurement Start: 08/01/17 13:50 Freq: Status: Active Protocol: Activity Type Activity Date Activity User E-Sign Co-Sign Detail Recorded Client Recorded Date Recorded By Document 08/08/17 13:42 [facility] [id number] 08/08/17 13:57 [facility] 08/08/17 13:42 Wound Center Nurse 1 [Ulcer Assessment] #11 R Lat ankle -Combined with other wound No -Current Size (cm) - Length 0.1 -Current Size (cm) - Width 0.1 -Current Size (cm) - Depth 0.1 -Total Square Cm 0.01 -Epithelialization Large 67-100% -Tunneling No -Undermining/Tunneling No -Exudate Amt None Present (0 %) -Structure Exposed N/A -Texture (Nikia-wound Skin Appearance) Scarring -Moisture (Nikia-wound Skin Appearance Dry/Scaly ) -Color (Nikia-wound Skin Appearance) Assessed Hemosiderin Staining -Temperature (Nikia-wound Skin No Abnormality Appearance) (Pt Warm) -Tenderness on Palpation (Nikia-wound No Skin Appearance) -Ulcer Cleansing Wound Cleanser -Foul Odor after Cleansing No -Anesthetic Used 4% Lidocaine Solution #9 L Med Ankle SUPERIOR (cluster) -Combined with other wound No -Current Size (cm) - Length 1.1 -Current Size (cm) - Width 0.4 -Current Size (cm) - Depth 0.1 -Total Square Cm 0.44 -Photo Taken No -Epithelialization Small 1-33% -Tunneling No -Undermining/Tunneling No -Exudate Amt Small (1-33%) -Exudate Type Serous -Wound Margin Distinct, Outline Attached -Granulation Amt None Present (0 %) -Slough/Fibrin Yes -Necrosis Amt Large (67-100%) -Necrotic Tissue Type Adherent Slough -Structure Exposed N/A -Texture (Nikia-wound Skin Appearance) Scarring -Moisture (Nikia-wound Skin Appearance Dry/Scaly ) -Color (Nikia-wound Skin Appearance) Assessed Hemosiderin Staining -Temperature (Nikia-wound Skin No Abnormality Appearance) (Pt Warm) -Tenderness on Palpation (Nikia-wound No Skin Appearance) -Ulcer Cleansing Wound Cleanser -Foul Odor after Cleansing No -Anesthetic Used 4% Lidocaine Solution [Edema Assessment] -Lower Limb Edema Present No -Right Calf (cm) 36.5 -Right Ankle (cm) 20.9 -Left Calf (cm) 32.5 -Left Ankle (cm) 20.5 WC - Nurse 2 - General Ulcer CM Notes Start: 08/01/17 13:50 Freq: Status: Active Protocol: Activity Type Activity Date Activity User E-Sign Co-Sign Detail Recorded Client Recorded Date Recorded By Document 08/08/17 14:09 MW [id number] 08/08/17 14:10 MW 08/08/17 14:09 Wound Center Nurse 2 [Procedure/Treatment] #11 R Lat ankle -Time 14:09 -Correct Patient Yes -Correct Side, Site, Position Yes -Correct Procedure Yes -Procedure Performed No -Post Debridement Size (cm) - Length 0 -Post Debridement Size (cm) - Width 0 -Post Debridement Size (cm) - Depth 0 -Total Square Cm 0 -Wound/Ulcer Outcome Healed- Epithelialized -Ulcer Cleansing Rinsed/ Irrigated with Saline -Foul Odor after Cleansing No -Bioengineered Tissue No -Bleeding Controlled with NA Pressure -Treatment Response Procedure Tolerated Well #9 L Med Ankle SUPERIOR (cluster) -Time 14:10 -Correct Patient Yes -Correct Side, Site, Position Yes -Correct Procedure Yes -Procedure Performed Yes -Type of Procedure Debridement -Clinical Debridement Subcutaneous -Post Debridement Size (cm) - Length 0.4 -Post Debridement Size (cm) - Width 0.2 -Post Debridement Size (cm) - Depth 0.1 -Total Square Cm 0.08 -Wound/Ulcer Outcome Not Healed -Ulcer Cleansing Rinsed/ Irrigated with Saline -Foul Odor after Cleansing No -Bioengineered Tissue No -Bleeding Controlled with Pressure -Treatment Response Procedure Tolerated Well [See Physician Procedure note for Specifics] Pain Scale: 0-10 Numeric [Pain] -Is Patient Pain Free? Yes Debridement Note Post-Debridement Measurements/Treatment WC - Nurse 2 - General Ulcer CM Notes Start: 08/01/17 13:50 Freq: Status: Active Protocol: Activity Type Activity Date Activity User E-Sign Co-Sign Detail Recorded Client Recorded Date Recorded By Document 08/01/17 14:16 MW [id number] 08/01/17 14:18 MW Document 08/08/17 14:09 MW [id number] 08/08/17 14:10 MW 08/01/17 08/08/17 14:16 14:09 Wound Center Nurse 2 #13 LEFT MEDIAL ANKLE- INFERIOR -Time 14:16 -Correct Patient Yes -Correct Side, Site, Position Yes -Correct Procedure Yes -Procedure Performed No -Post Debridement Size (cm) - Length 0 -Post Debridement Size (cm) - Width 0 -Post Debridement Size (cm) - Depth 0 -Total Square Cm 0 -Wound/Ulcer Outcome Healed- Epithelialized -Ulcer Cleansing Not Cleansed -Foul Odor after Cleansing No -Bioengineered Tissue No -Bleeding Controlled with NA -Treatment Response Procedure Tolerated Well #11 R Lat ankle -Time 14:17 14:09 -Correct Patient Yes Yes -Correct Side, Site, Position Yes Yes -Correct Procedure Yes Yes -Procedure Performed Yes No -Type of Procedure Debridement -Clinical Debridement Subcutaneous -Post Debridement Size (cm) - Length 0.3 0 -Post Debridement Size (cm) - Width 0.3 0 -Post Debridement Size (cm) - Depth 0.2 0 -Total Square Cm 0.09 0 -Wound/Ulcer Outcome Not Healed Healed- Epithelialized -Ulcer Cleansing Rinsed/ Rinsed/ Irrigated with Irrigated with Saline Saline -Foul Odor after Cleansing No No -Bioengineered Tissue No No -Bleeding Controlled with Pressure NA Pressure -Treatment Response Procedure Procedure Tolerated Well Tolerated Well #9 L Med Ankle SUPERIOR (cluster) -Time 14:17 14:10 -Correct Patient Yes Yes -Correct Side, Site, Position Yes Yes -Correct Procedure Yes Yes -Procedure Performed Yes Yes -Type of Procedure Debridement Debridement -Clinical Debridement Subcutaneous Subcutaneous -Post Debridement Size (cm) - Length 1.2 0.4 -Post Debridement Size (cm) - Width 1.0 0.2 -Post Debridement Size (cm) - Depth 0.1 0.1 -Total Square Cm 1.20 0.08 -Wound/Ulcer Outcome Not Healed Not Healed -Ulcer Cleansing Rinsed/ Rinsed/ Irrigated with Irrigated with Saline Saline -Foul Odor after Cleansing No No -Bioengineered Tissue No No -Bleeding Controlled with Pressure Pressure -Treatment Response Procedure Procedure Tolerated Well Tolerated Well Pain Scale: 0-10 Numeric Is Patient Pain Free? Yes Yes Wound debrided: L medial ankle Laterality: Left Wound Grade/Stage: full thickness VLU Type of Debridement: Excisional debridement Anesthesia Used: 4% Lidocaine Solution Depth: Down to and including healthy tissue, in the subcutaneous layer Percentage of wound debrided: 100 Instrument Used: 3mm curette Tissue Removed: fibrous slough Severity: Fat Layer Exposed Amount of bleeding with debridement: Mild Bleeding Controlled with: Pressure, Compression and gauze Patient tolerated procedure well Assessment/Plan Active Problems Non-pressure chronic ulcer of left ankle with fat layer exposed (Acute) Non-pressure chronic ulcer of right ankle with fat layer exposed (Acute) Venous insufficiency (chronic) (peripheral) (Chronic) I87.2 Assessment: See diagnoses Plan: SQ/excisional debridment L ankle ulcer as above. Referral to vascular surgery placed previously based on venous duplex results. Pt states he is not going to schedule an appointment. Discussed with him again that his wounds continue to recur due to venous insufficiency despite using compression, and he needs to see a vascular surgeon. Pt stated he understood, and he will consider it after the ulcers heal. Pt does well with 3M 2-layer coban wraps, re-apply today. Improved. Cont hydrofera blue, cont adaptic to wound bed prior to application of hydrofera blue. Cont collagen hydrogel to wound bed. Monitor for redness, pus, malodor, warmth, pain, swelling as well as for N/V/F/C and go to the ED with these. Return in 1 week with me, call with questions. Discussed importance of adequate nutrition, especially increased protein intake to promote healing. Discussed importance of leg elevation, increased activity, and avoiding idle sitting or standing. Pt unable to take PO NSAIDs due to current use of Coumadin.
--- NOTE | 2017-08-08 16:38 | PN.PCM_ITS ---
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 Patient is also known to have chronic leg edema. He is drinking a protein supplementation drink daily still at this time. He denies fever, chills, nausea, vomiting, leg pain during the day. He had his venous doppler with reflux in the past, but not recently. He denies leg redness or drainage. 05/02--Improved. Vascular testing scheduled for next week. Tolerating 3M 2-layer coban wraps and hydrofera blue well. Pain improved. Denies N/V/F/C. Denies redness, pus, malodor, warmth. 05/09--Improved. Vascular testing done and reviewed. Tolerating 3M 2-layer coban wraps and hydrofera blue well. Pain improved. Denies N/V/F/C. Denies redness, pus, malodor, warmth. 05/16--Improved. Vascular testing done and reviewed. Tolerating 3M 2-layer coban wraps and hydrofera blue well. Pain improved. Denies N/V/F/C. Denies redness, pus, malodor, warmth. 05/30/17--Improved. Tolerating 3M 2-layer coban wraps and hydrofera blue well. Almost no drainge-- hydrofera blue is sticking to the ulcers, so we will add adaptic first. Pain improved. Denies N/V/F/C. Denies redness, pus, malodor, warmth. 06/06-- Improved. Tolerating 3M 2-layer coban wraps and, adaptic, hydrofera blue well. Almost no drainage. Pain improved. Denies N/V/F/C. Denies redness, pus, malodor, warmth. 06/13--Improved. Tolerating 3M 2-layer coban wraps and, adaptic, hydrofera blue well. Almost no drainage. Pain improved. Denies N/V/F/ C. Denies redness, pus, malodor, warmth. Waiting for appointment with Dr. Chapman. 06/20--Improved. Tolerating 3M 2-layer coban wraps and, adaptic, hydrofera blue well. Almost no drainage. Pain improved. Denies N/V/F/C. Denies redness, pus, malodor, warmth. Was contacted by Dr. Chapman's office, but states he cannot schedule an appointment until he deals with his eyes. --Improved. Tolerating 3M 2-layer coban wraps and, adaptic, hydrofera blue well. Almost no drainage. Pain improved. Denies N/V/F/C. Denies redness, pus , malodor, warmth. R medial ulcer healed. 07/04--Improved. Tolerating 3M 2- layer coban wraps and, adaptic, hydrofera blue well. Almost no drainage. Pain improved. Denies N/V/F/C. Denies redness, pus, malodor, warmth. R medial ulcer remains healed. 07/11--Improved. Tolerating 3M 2-layer coban wraps and, adaptic, hydrofera blue well. Almost no drainage. Pain improved. Denies N/V/F/ C. Denies redness, pus, malodor, warmth. R medial ulcer remains healed. 07/18- -L medial ankle ulcer improved, but developed a new ulceration just distal to this one. R lateral ankle stable. Tolerating 3M 2-layer coban wraps, adaptic, hydrofera blue well. Almost no drainage. Denies N/V/F/C. Denies redness, pus , malodor, warmth. R medial ulcer remains healed. 07/25--Slowling improving. Tolerating 3M 2-layer coban wraps, adaptic, hydrofera blue well. Almost no drainage. Denies N/V/F/C. Denies redness, pus, malodor, warmth. R medial ulcer remains healed. 08/01--Slowling improving. Tolerating 3M 2-layer coban wraps, adaptic, hydrofera blue well. Almost no drainage. Denies N/V/F/C. Denies redness, pus, malodor, warmth. R medial ulcer remains healed. Distal ( inferior) ulcer L medial ankle healed. 08/08--Slowly improving. Tolerating 3M 2-layer coban wraps, adaptic, hydrofera blue well. Almost no drainage. Denies N/V/F/C. Denies redness, pus, malodor, warmth. R medial ulcer remains healed. R lateral ankle ulcer healed. Distal (inferior) ulcer L medial ankle healed. L medial ulcer improved. Progress of Wound: Slowly improving. R ankle ulcer healed. L medial ankle ulcer imrpoved. - Physical Exam Vital Signs Temp Pulse Resp BP 98 F 79 16 145/75 H 08/08/17 13:42 08/01/17 13:51 08/08/17 13:42 08/01/17 13:51 General: Alert, Oriented x3, Cooperative, No apparent distress Skin: Ulcer/ Wound - R lateral ankle ulcer covered with epithelial tissue. L medial ankle ulcer improved. L medial ankle with no erythema, no malodor, no pus, no calor. No clinical signs of acute bacterial infection noted. See nurse ?s wound/edema assessment below. Wound Measurements and Assessment WC - Nurse 1 - General Ulcer Measurement Start: 08/01/17 13:50 Freq: Status: Active Protocol: Activity Type Activity Date Activity User E-Sign Co-Sign Detail Recorded Client Recorded Date Recorded By Document 08/08/17 13:42 [facility] [id number] 08/08/17 13:57 [facility] 08/08/17 13:42 Wound Center Nurse 1 [Ulcer Assessment] #11 R Lat ankle -Combined with other wound No -Current Size (cm) - Length 0.1 -Current Size (cm) - Width 0.1 -Current Size (cm) - Depth 0.1 -Total Square Cm 0.01 -Epithelialization Large 67-100% -Tunneling No -Undermining/Tunneling No -Exudate Amt None Present (0 %) -Structure Exposed N/A -Texture (Nikia-wound Skin Appearance) Scarring -Moisture (Nikia-wound Skin Appearance Dry/Scaly ) -Color (Nikia-wound Skin Appearance) Assessed Hemosiderin Staining -Temperature (Nikia-wound Skin No Abnormality Appearance) (Pt Warm) -Tenderness on Palpation (Nikia-wound No Skin Appearance) -Ulcer Cleansing Wound Cleanser -Foul Odor after Cleansing No -Anesthetic Used 4% Lidocaine Solution #9 L Med Ankle SUPERIOR (cluster) -Combined with other wound No -Current Size (cm) - Length 1.1 -Current Size (cm) - Width 0.4 -Current Size (cm) - Depth 0.1 -Total Square Cm 0.44 -Photo Taken No -Epithelialization Small 1-33% -Tunneling No -Undermining/Tunneling No -Exudate Amt Small (1-33%) -Exudate Type Serous -Wound Margin Distinct, Outline Attached -Granulation Amt None Present (0 %) -Slough/Fibrin Yes -Necrosis Amt Large (67-100%) -Necrotic Tissue Type Adherent Slough -Structure Exposed N/A -Texture (Nikia-wound Skin Appearance) Scarring -Moisture (Nikia-wound Skin Appearance Dry/Scaly ) -Color (Nikia-wound Skin Appearance) Assessed Hemosiderin Staining -Temperature (Nikia-wound Skin No Abnormality Appearance) (Pt Warm) -Tenderness on Palpation (Nikia-wound No Skin Appearance) -Ulcer Cleansing Wound Cleanser -Foul Odor after Cleansing No -Anesthetic Used 4% Lidocaine Solution [Edema Assessment] -Lower Limb Edema Present No -Right Calf (cm) 36.5 -Right Ankle (cm) 20.9 -Left Calf (cm) 32.5 -Left Ankle (cm) 20.5 WC - Nurse 2 - General Ulcer CM Notes Start: 08/01/17 13:50 Freq: Status: Active Protocol: Activity Type Activity Date Activity User E-Sign Co-Sign Detail Recorded Client Recorded Date Recorded By Document 08/08/17 14:09 MW [id number] 08/08/17 14:10 MW 08/08/17 14:09 Wound Center Nurse 2 [Procedure/Treatment] #11 R Lat ankle -Time 14:09 -Correct Patient Yes -Correct Side, Site, Position Yes -Correct Procedure Yes -Procedure Performed No -Post Debridement Size (cm) - Length 0 -Post Debridement Size (cm) - Width 0 -Post Debridement Size (cm) - Depth 0 -Total Square Cm 0 -Wound/Ulcer Outcome Healed- Epithelialized -Ulcer Cleansing Rinsed/ Irrigated with Saline -Foul Odor after Cleansing No -Bioengineered Tissue No -Bleeding Controlled with NA Pressure -Treatment Response Procedure Tolerated Well #9 L Med Ankle SUPERIOR (cluster) -Time 14:10 -Correct Patient Yes -Correct Side, Site, Position Yes -Correct Procedure Yes -Procedure Performed Yes -Type of Procedure Debridement -Clinical Debridement Subcutaneous -Post Debridement Size (cm) - Length 0.4 -Post Debridement Size (cm) - Width 0.2 -Post Debridement Size (cm) - Depth 0.1 -Total Square Cm 0.08 -Wound/Ulcer Outcome Not Healed -Ulcer Cleansing Rinsed/ Irrigated with Saline -Foul Odor after Cleansing No -Bioengineered Tissue No -Bleeding Controlled with Pressure -Treatment Response Procedure Tolerated Well [See Physician Procedure note for Specifics] Pain Scale: 0-10 Numeric [Pain] -Is Patient Pain Free? Yes Debridement Note Post-Debridement Measurements/Treatment WC - Nurse 2 - General Ulcer CM Notes Start: 08/01/17 13:50 Freq: Status: Active Protocol: Activity Type Activity Date Activity User E-Sign Co-Sign Detail Recorded Client Recorded Date Recorded By Document 08/01/17 14:16 MW [id number] 08/01/17 14:18 MW Document 08/08/17 14:09 MW [id number] 08/08/17 14:10 MW 08/01/17 08/08/17 14:16 14:09 Wound Center Nurse 2 #13 LEFT MEDIAL ANKLE- INFERIOR -Time 14:16 -Correct Patient Yes -Correct Side, Site, Position Yes -Correct Procedure Yes -Procedure Performed No -Post Debridement Size (cm) - Length 0 -Post Debridement Size (cm) - Width 0 -Post Debridement Size (cm) - Depth 0 -Total Square Cm 0 -Wound/Ulcer Outcome Healed- Epithelialized -Ulcer Cleansing Not Cleansed -Foul Odor after Cleansing No -Bioengineered Tissue No -Bleeding Controlled with NA -Treatment Response Procedure Tolerated Well #11 R Lat ankle -Time 14:17 14:09 -Correct Patient Yes Yes -Correct Side, Site, Position Yes Yes -Correct Procedure Yes Yes -Procedure Performed Yes No -Type of Procedure Debridement -Clinical Debridement Subcutaneous -Post Debridement Size (cm) - Length 0.3 0 -Post Debridement Size (cm) - Width 0.3 0 -Post Debridement Size (cm) - Depth 0.2 0 -Total Square Cm 0.09 0 -Wound/Ulcer Outcome Not Healed Healed- Epithelialized -Ulcer Cleansing Rinsed/ Rinsed/ Irrigated with Irrigated with Saline Saline -Foul Odor after Cleansing No No -Bioengineered Tissue No No -Bleeding Controlled with Pressure NA Pressure -Treatment Response Procedure Procedure Tolerated Well Tolerated Well #9 L Med Ankle SUPERIOR (cluster) -Time 14:17 14:10 -Correct Patient Yes Yes -Correct Side, Site, Position Yes Yes -Correct Procedure Yes Yes -Procedure Performed Yes Yes -Type of Procedure Debridement Debridement -Clinical Debridement Subcutaneous Subcutaneous -Post Debridement Size (cm) - Length 1.2 0.4 -Post Debridement Size (cm) - Width 1.0 0.2 -Post Debridement Size (cm) - Depth 0.1 0.1 -Total Square Cm 1.20 0.08 -Wound/Ulcer Outcome Not Healed Not Healed -Ulcer Cleansing Rinsed/ Rinsed/ Irrigated with Irrigated with Saline Saline -Foul Odor after Cleansing No No -Bioengineered Tissue No No -Bleeding Controlled with Pressure Pressure -Treatment Response Procedure Procedure Tolerated Well Tolerated Well Pain Scale: 0-10 Numeric Is Patient Pain Free? Yes Yes Wound debrided: L medial ankle Laterality: Left Wound Grade/Stage: full thickness VLU Type of Debridement: Excisional debridement Anesthesia Used: 4% Lidocaine Solution Depth: Down to and including healthy tissue, in the subcutaneous layer Percentage of wound debrided: 100 Instrument Used: 3mm curette Tissue Removed: fibrous slough Severity: Fat Layer Exposed Amount of bleeding with debridement: Mild Bleeding Controlled with: Pressure, Compression and gauze Patient tolerated procedure well Assessment/Plan Active Problems Non-pressure chronic ulcer of left ankle with fat layer exposed (Acute) Non-pressure chronic ulcer of right ankle with fat layer exposed (Acute) Venous insufficiency (chronic) (peripheral) (Chronic) I87.2 Assessment: See diagnoses Plan: SQ/excisional debridment L ankle ulcer as above. Referral to vascular surgery placed previously based on venous duplex results. Pt states he is not going to schedule an appointment. Discussed with him again that his wounds continue to recur due to venous insufficiency despite using compression, and he needs to see a vascular surgeon. Pt stated he understood, and he will consider it after the ulcers heal. Pt does well with 3M 2-layer coban wraps, re-apply today. Improved. Cont hydrofera blue, cont adaptic to wound bed prior to application of hydrofera blue. Cont collagen hydrogel to wound bed. Monitor for redness, pus, malodor, warmth, pain, swelling as well as for N/V/F/C and go to the ED with these. Return in 1 week with me, call with questions. Discussed importance of adequate nutrition, especially increased protein intake to promote healing. Discussed importance of leg elevation, increased activity, and avoiding idle sitting or standing. Pt unable to take PO NSAIDs due to current use of Coumadin.
--- NOTE | 2017-08-15 14:25 | PN_ITS ---
Progress Note Pt called and stated he is sick and is not going to come in today. Pt has 3M 2- layer coban wraps in place, and will need to come in tomorrow for a nurse visit to change the wraps. Nursing staff will contact him to schedule, and he will follow up with me next week.
[2017-08-17 15:49] VITALS: BP 132/78; PULSE 104; RESP 18; TEMP 35.9; BMI 27.3
[2017-08-22 13:40] VITALS: BP 151/91; PULSE 84; RESP 18; TEMP 35.3; BMI 27.3
--- NOTE | 2017-08-22 15:12 | PCM.WC.PN ---
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 Patient is also known to have chronic leg edema. He is drinking a protein supplementation drink daily still at this time. He denies fever, chills, nausea, vomiting, leg pain during the day. He had his venous doppler with reflux in the past, but not recently. He denies leg redness or drainage. 05/02--Improved. Vascular testing scheduled for next week. Tolerating 3M 2-layer coban wraps and hydrofera blue well. Pain improved. Denies N/V/F/C. Denies redness, pus, malodor, warmth. 05/09--Improved. Vascular testing done and reviewed. Tolerating 3M 2-layer coban wraps and hydrofera blue well. Pain improved. Denies N/V/F/C. Denies redness, pus, malodor, warmth. 05/16--Improved. Vascular testing done and reviewed. Tolerating 3M 2-layer coban wraps and hydrofera blue well. Pain improved. Denies N/V/F/C. Denies redness, pus, malodor, warmth. 05/30/17--Improved. Tolerating 3M 2-layer coban wraps and hydrofera blue well. Almost no drainge--hydrofera blue is sticking to the ulcers, so we will add adaptic first. Pain improved. Denies N/V/F/C. Denies redness, pus, malodor, warmth. 06/06--Improved. Tolerating 3M 2-layer coban wraps and, adaptic, hydrofera blue well. Almost no drainage. Pain improved. Denies N/V/F/C. Denies redness, pus, malodor, warmth. 06/13--Improved. Tolerating 3M 2-layer coban wraps and, adaptic, hydrofera blue well. Almost no drainage. Pain improved. Denies N/V/F/C. Denies redness, pus, malodor, warmth. Waiting for appointment with Dr. Chapman. 06/20--Improved. Tolerating 3M 2-layer coban wraps and, adaptic, hydrofera blue well. Almost no drainage. Pain improved. Denies N/V/F/C. Denies redness, pus, malodor, warmth. Was contacted by Dr. Chapman's office, but states he cannot schedule an appointment until he deals with his eyes. 06/27--Improved. Tolerating 3M 2-layer coban wraps and, adaptic, hydrofera blue well. Almost no drainage. Pain improved. Denies N/V/F/C. Denies redness, pus, malodor, warmth. R medial ulcer healed. 07/04--Improved. Tolerating 3M 2-layer coban wraps and, adaptic, hydrofera blue well. Almost no drainage. Pain improved. Denies N/V/F/C. Denies redness, pus, malodor, warmth. R medial ulcer remains healed. 07/11--Improved. Tolerating 3M 2-layer coban wraps and, adaptic, hydrofera blue well. Almost no drainage. Pain improved. Denies N/V/F/C. Denies redness, pus, malodor, warmth. R medial ulcer remains healed. 07/18--L medial ankle ulcer improved, but developed a new ulceration just distal to this one. R lateral ankle stable. Tolerating 3M 2-layer coban wraps, adaptic, hydrofera blue well. Almost no drainage. Denies N/V/F/C. Denies redness, pus, malodor, warmth. R medial ulcer remains healed. 07/25--Slowling improving. Tolerating 3M 2-layer coban wraps, adaptic, hydrofera blue well. Almost no drainage. Denies N/V/F/C. Denies redness, pus, malodor, warmth. R medial ulcer remains healed. 08/01--Slowling improving. Tolerating 3M 2-layer coban wraps, adaptic, hydrofera blue well. Almost no drainage. Denies N/V/F/C. Denies redness, pus, malodor, warmth. R medial ulcer remains healed. Distal (inferior) ulcer L medial ankle healed. 08/08--Slowly improving. Tolerating 3M 2-layer coban wraps, adaptic, hydrofera blue well. Almost no drainage. Denies N/V/F/C. Denies redness, pus, malodor, warmth. R medial ulcer remains healed. R lateral ankle ulcer healed. Distal (inferior) ulcer L medial ankle healed. L medial ulcer improved. 08/22--Returned last week for nurse visit for wrap change. All ulcers have healed. Denies s/s of acute bacterial infection. Has circaids at home. Progress of Wound: All ulcers healed. - Physical Exam Vital Signs Temp Pulse Resp BP 95.5 F L 84 18 151/91 H 08/22/17 13:40 08/22/17 13:40 08/22/17 13:40 08/22/17 13:40 General: Alert, Oriented x3, Cooperative, No apparent distress Skin: No breakdown, Ulcer/ Wound - All previously-noted ulcers are covered with epithelial tissue and have healed. Wound Measurements and Assessment - Nurse 1 - General Ulcer Measurement Start: 08/01/17 13:50 Freq: Status: Active Protocol: Activity Type Activity Date Activity User E-Sign Co-Sign Detail Recorded Client Recorded Date Recorded By Document 08/22/17 13:40 [id number] 08/22/17 13:50 [email or web address] 08/22/17 13:40 Wound Center Nurse 1 [Ulcer Assessment] #9 L Med Ankle SUPERIOR (cluster) -Combined with other wound No -Current Size (cm) - Length 0 -Current Size (cm) - Width 0 -Current Size (cm) - Depth 0 -Total Square Cm 0 -Photo Taken Yes -Epithelialization Large 67-100% -Tunneling No -Undermining/Tunneling No -Circular Undermining No -Ulcer Cleansing Wound Cleanser -Foul Odor after Cleansing No [Edema Assessment] -Lower Limb Edema Present Yes -Right Calf (cm) 36.6 -Right Ankle (cm) 21.2 -Left Calf (cm) 33.6 -Left Ankle (cm) 20.8 WC - Nurse 2 - General Ulcer CM Notes Start: 08/01/17 13:50 Freq: Status: Active Protocol: Activity Type Activity Date Activity User E-Sign Co-Sign Detail Recorded Client Recorded Date Recorded By Document 08/22/17 14:18 MW [id number] 08/22/17 14:19 MW 08/22/17 14:18 Wound Center Nurse 2 [Procedure/Treatment] #9 L Med Ankle SUPERIOR (cluster) -Time 14:18 -Correct Patient Yes -Correct Side, Site, Position Yes -Correct Procedure Yes -Procedure Performed No -Post Debridement Size (cm) - Length 0 -Post Debridement Size (cm) - Width 0 -Post Debridement Size (cm) - Depth 0 -Total Square Cm 0 -Wound/Ulcer Outcome Healed- Epithelialized -Ulcer Cleansing Not Cleansed -Foul Odor after Cleansing No -Bioengineered Tissue No -Bleeding Controlled with NA -Treatment Response Procedure Tolerated Well [See Physician Procedure note for Specifics] Pain Scale: 0-10 Numeric [Pain] -Is Patient Pain Free? Yes Debridement Note Post-Debridement Measurements/Treatment WC - Nurse 2 - General Ulcer CM Notes Start: 08/01/17 13:50 Freq: Status: Active Protocol: Activity Type Activity Date Activity User E-Sign Co-Sign Detail Recorded Client Recorded Date Recorded By Document 08/01/17 14:16 MW [id number] 08/01/17 14:18 MW Document 08/08/17 14:09 MW [id number] 08/08/17 14:10 MW Document 08/22/17 14:18 MW [id number] 08/22/17 14:19 MW 08/01/17 08/08/17 08/22/17 14:16 14:09 14:18 Wound Center Nurse 2 #13 LEFT MEDIAL ANKLE- INFERIOR -Time 14:16 -Correct Patient Yes -Correct Side, Site, Position Yes -Correct Procedure Yes -Procedure Performed No -Post Debridement Size (cm) - Length 0 -Post Debridement Size (cm) - Width 0 -Post Debridement Size (cm) - Depth 0 -Total Square Cm 0 -Wound/Ulcer Outcome Healed- Epithelialized -Ulcer Cleansing Not Cleansed -Foul Odor after Cleansing No -Bioengineered Tissue No -Bleeding Controlled with NA -Treatment Response Procedure Tolerated Well #11 R Lat ankle -Time 14:17 14:09 -Correct Patient Yes Yes -Correct Side, Site, Position Yes Yes -Correct Procedure Yes Yes -Procedure Performed Yes No -Type of Procedure Debridement -Clinical Debridement Subcutaneous -Post Debridement Size (cm) - Length 0.3 0 -Post Debridement Size (cm) - Width 0.3 0 -Post Debridement Size (cm) - Depth 0.2 0 -Total Square Cm 0.09 0 -Wound/Ulcer Outcome Not Healed Healed- Epithelialized -Ulcer Cleansing Rinsed/ Rinsed/ Irrigated with Irrigated with Saline Saline -Foul Odor after Cleansing No No -Bioengineered Tissue No No -Bleeding Controlled with Pressure NA Pressure -Treatment Response Procedure Procedure Tolerated Well Tolerated Well #9 L Med Ankle SUPERIOR (cluster) -Time 14:17 14:10 14:18 -Correct Patient Yes Yes Yes -Correct Side, Site, Position Yes Yes Yes -Correct Procedure Yes Yes Yes -Procedure Performed Yes Yes No -Type of Procedure Debridement Debridement -Clinical Debridement Subcutaneous Subcutaneous -Post Debridement Size (cm) - Length 1.2 0.4 0 -Post Debridement Size (cm) - Width 1.0 0.2 0 -Post Debridement Size (cm) - Depth 0.1 0.1 0 -Total Square Cm 1.20 0.08 0 -Wound/Ulcer Outcome Not Healed Not Healed Healed- Epithelialized -Ulcer Cleansing Rinsed/ Rinsed/ Not Cleansed Irrigated with Irrigated with Saline Saline -Foul Odor after Cleansing No No No -Bioengineered Tissue No No No -Bleeding Controlled with Pressure Pressure NA -Treatment Response Procedure Procedure Procedure Tolerated Well Tolerated Well Tolerated Well Pain Scale: 0-10 Numeric Is Patient Pain Free? Yes Yes Yes No debridement was completed today - healed. Assessment/Plan Active Problems Venous insufficiency (chronic) (peripheral) (Chronic) I87.2 Assessment: See diagnoses Plan: Exam. A total of 25 minutes was spent [id number] with the patient, and over half of that timew as spent on counseling, coordination of care, and discussing his diagnoses. Referral to vascular surgery placed previously based on venous duplex results. Pt states he is not going to schedule an appointment. Discussed with him again that his wounds continue to recur due to venous insufficiency despite using compression, and he needs to see a vascular surgeon. Pt stated he understood, and he will consider it now that he is healed. All ulcers healed. Apply protective ointment such as aquahpor BID to healed ulcer sites. Pt aware that healed ulcers are fragile and prone to re-ulceration so he needs to protect the areas well. Monitor for recurrence of the ulcers. No open wounds on the lower extremities, return prn. Discussed importance of adequate nutrition, especially increased protein intake to promote healing. Discussed importance of leg elevation, increased activity, and avoiding idle sitting or standing. Pt unable to take PO NSAIDs due to current use of Coumadin. Rx new circaid juxtalite 20-30 mmHg wraps b/l.
--- NOTE | 2017-08-22 15:19 | PN.PCM_ITS ---
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 Patient is also known to have chronic leg edema. He is drinking a protein supplementation drink daily still at this time. He denies fever, chills, nausea, vomiting, leg pain during the day. He had his venous doppler with reflux in the past, but not recently. He denies leg redness or drainage. 05/02--Improved. Vascular testing scheduled for next week. Tolerating 3M 2-layer coban wraps and hydrofera blue well. Pain improved. Denies N/V/F/C. Denies redness, pus, malodor, warmth. 05/09--Improved. Vascular testing done and reviewed. Tolerating 3M 2-layer coban wraps and hydrofera blue well. Pain improved. Denies N/V/F/C. Denies redness, pus, malodor, warmth. 05/16--Improved. Vascular testing done and reviewed. Tolerating 3M 2-layer coban wraps and hydrofera blue well. Pain improved. Denies N/V/F/C. Denies redness, pus, malodor, warmth. 05/30/17--Improved. Tolerating 3M 2-layer coban wraps and hydrofera blue well. Almost no drainge-- hydrofera blue is sticking to the ulcers, so we will add adaptic first. Pain improved. Denies N/V/F/C. Denies redness, pus, malodor, warmth. 06/06-- Improved. Tolerating 3M 2-layer coban wraps and, adaptic, hydrofera blue well. Almost no drainage. Pain improved. Denies N/V/F/C. Denies redness, pus, malodor, warmth. 06/13--Improved. Tolerating 3M 2-layer coban wraps and, adaptic, hydrofera blue well. Almost no drainage. Pain improved. Denies N/V/F/ C. Denies redness, pus, malodor, warmth. Waiting for appointment with Dr. Chapman. 06/20--Improved. Tolerating 3M 2-layer coban wraps and, adaptic, hydrofera blue well. Almost no drainage. Pain improved. Denies N/V/F/C. Denies redness, pus, malodor, warmth. Was contacted by Dr. Chapman's office, but states he cannot schedule an appointment until he deals with his eyes. --Improved. Tolerating 3M 2-layer coban wraps and, adaptic, hydrofera blue well. Almost no drainage. Pain improved. Denies N/V/F/C. Denies redness, pus , malodor, warmth. R medial ulcer healed. 07/04--Improved. Tolerating 3M 2- layer coban wraps and, adaptic, hydrofera blue well. Almost no drainage. Pain improved. Denies N/V/F/C. Denies redness, pus, malodor, warmth. R medial ulcer remains healed. 07/11--Improved. Tolerating 3M 2-layer coban wraps and, adaptic, hydrofera blue well. Almost no drainage. Pain improved. Denies N/V/F/ C. Denies redness, pus, malodor, warmth. R medial ulcer remains healed. 07/18- -L medial ankle ulcer improved, but developed a new ulceration just distal to this one. R lateral ankle stable. Tolerating 3M 2-layer coban wraps, adaptic, hydrofera blue well. Almost no drainage. Denies N/V/F/C. Denies redness, pus , malodor, warmth. R medial ulcer remains healed. 07/25--Slowling improving. Tolerating 3M 2-layer coban wraps, adaptic, hydrofera blue well. Almost no drainage. Denies N/V/F/C. Denies redness, pus, malodor, warmth. R medial ulcer remains healed. 08/01--Slowling improving. Tolerating 3M 2-layer coban wraps, adaptic, hydrofera blue well. Almost no drainage. Denies N/V/F/C. Denies redness, pus, malodor, warmth. R medial ulcer remains healed. Distal ( inferior) ulcer L medial ankle healed. 08/08--Slowly improving. Tolerating 3M 2-layer coban wraps, adaptic, hydrofera blue well. Almost no drainage. Denies N/V/F/C. Denies redness, pus, malodor, warmth. R medial ulcer remains healed. R lateral ankle ulcer healed. Distal (inferior) ulcer L medial ankle healed. L medial ulcer improved. 08/22--Returned last week for nurse visit for wrap change. All ulcers have healed. Denies s/s of acute bacterial infection. Has circaids at home. Progress of Wound: All ulcers healed. - Physical Exam Vital Signs Temp Pulse Resp BP 95.5 F L 84 18 151/91 H 08/22/17 13:40 08/22/17 13:40 08/22/17 13:40 08/22/17 13:40 General: Alert, Oriented x3, Cooperative, No apparent distress Skin: No breakdown, Ulcer/ Wound - All previously-noted ulcers are covered with epithelial tissue and have healed. Wound Measurements and Assessment - Nurse 1 - General Ulcer Measurement Start: 08/01/17 13:50 Freq: Status: Active Protocol: Activity Type Activity Date Activity User E-Sign Co-Sign Detail Recorded Client Recorded Date Recorded By Document 08/22/17 13:40 [id number] 08/22/17 13:50 [email or web address] 08/22/17 13:40 Wound Center Nurse 1 [Ulcer Assessment] #9 L Med Ankle SUPERIOR (cluster) -Combined with other wound No -Current Size (cm) - Length 0 -Current Size (cm) - Width 0 -Current Size (cm) - Depth 0 -Total Square Cm 0 -Photo Taken Yes -Epithelialization Large 67-100% -Tunneling No -Undermining/Tunneling No -Circular Undermining No -Ulcer Cleansing Wound Cleanser -Foul Odor after Cleansing No [Edema Assessment] -Lower Limb Edema Present Yes -Right Calf (cm) 36.6 -Right Ankle (cm) 21.2 -Left Calf (cm) 33.6 -Left Ankle (cm) 20.8 WC - Nurse 2 - General Ulcer CM Notes Start: 08/01/17 13:50 Freq: Status: Active Protocol: Activity Type Activity Date Activity User E-Sign Co-Sign Detail Recorded Client Recorded Date Recorded By Document 08/22/17 14:18 MW [id number] 08/22/17 14:19 MW 08/22/17 14:18 Wound Center Nurse 2 [Procedure/Treatment] #9 L Med Ankle SUPERIOR (cluster) -Time 14:18 -Correct Patient Yes -Correct Side, Site, Position Yes -Correct Procedure Yes -Procedure Performed No -Post Debridement Size (cm) - Length 0 -Post Debridement Size (cm) - Width 0 -Post Debridement Size (cm) - Depth 0 -Total Square Cm 0 -Wound/Ulcer Outcome Healed- Epithelialized -Ulcer Cleansing Not Cleansed -Foul Odor after Cleansing No -Bioengineered Tissue No -Bleeding Controlled with NA -Treatment Response Procedure Tolerated Well [See Physician Procedure note for Specifics] Pain Scale: 0-10 Numeric [Pain] -Is Patient Pain Free? Yes Debridement Note Post-Debridement Measurements/Treatment WC - Nurse 2 - General Ulcer CM Notes Start: 08/01/17 13:50 Freq: Status: Active Protocol: Activity Type Activity Date Activity User E-Sign Co-Sign Detail Recorded Client Recorded Date Recorded By Document 08/01/17 14:16 MW [id number] 08/01/17 14:18 MW Document 08/08/17 14:09 MW [id number] 08/08/17 14:10 MW Document 08/22/17 14:18 MW [id number] 08/22/17 14:19 MW 08/01/17 08/08/17 08/22/17 14:16 14:09 14:18 Wound Center Nurse 2 #13 LEFT MEDIAL ANKLE- INFERIOR -Time 14:16 -Correct Patient Yes -Correct Side, Site, Position Yes -Correct Procedure Yes -Procedure Performed No -Post Debridement Size (cm) - Length 0 -Post Debridement Size (cm) - Width 0 -Post Debridement Size (cm) - Depth 0 -Total Square Cm 0 -Wound/Ulcer Outcome Healed- Epithelialized -Ulcer Cleansing Not Cleansed -Foul Odor after Cleansing No -Bioengineered Tissue No -Bleeding Controlled with NA -Treatment Response Procedure Tolerated Well #11 R Lat ankle -Time 14:17 14:09 -Correct Patient Yes Yes -Correct Side, Site, Position Yes Yes -Correct Procedure Yes Yes -Procedure Performed Yes No -Type of Procedure Debridement -Clinical Debridement Subcutaneous -Post Debridement Size (cm) - Length 0.3 0 -Post Debridement Size (cm) - Width 0.3 0 -Post Debridement Size (cm) - Depth 0.2 0 -Total Square Cm 0.09 0 -Wound/Ulcer Outcome Not Healed Healed- Epithelialized -Ulcer Cleansing Rinsed/ Rinsed/ Irrigated with Irrigated with Saline Saline -Foul Odor after Cleansing No No -Bioengineered Tissue No No -Bleeding Controlled with Pressure NA Pressure -Treatment Response Procedure Procedure Tolerated Well Tolerated Well #9 L Med Ankle SUPERIOR (cluster) -Time 14:17 14:10 14:18 -Correct Patient Yes Yes Yes -Correct Side, Site, Position Yes Yes Yes -Correct Procedure Yes Yes Yes -Procedure Performed Yes Yes No -Type of Procedure Debridement Debridement -Clinical Debridement Subcutaneous Subcutaneous -Post Debridement Size (cm) - Length 1.2 0.4 0 -Post Debridement Size (cm) - Width 1.0 0.2 0 -Post Debridement Size (cm) - Depth 0.1 0.1 0 -Total Square Cm 1.20 0.08 0 -Wound/Ulcer Outcome Not Healed Not Healed Healed- Epithelialized -Ulcer Cleansing Rinsed/ Rinsed/ Not Cleansed Irrigated with Irrigated with Saline Saline -Foul Odor after Cleansing No No No -Bioengineered Tissue No No No -Bleeding Controlled with Pressure Pressure NA -Treatment Response Procedure Procedure Procedure Tolerated Well Tolerated Well Tolerated Well Pain Scale: 0-10 Numeric Is Patient Pain Free? Yes Yes Yes No debridement was completed today - healed. Assessment/Plan Active Problems Venous insufficiency (chronic) (peripheral) (Chronic) I87.2 Assessment: See diagnoses Plan: Exam. A total of 25 minutes was spent [id number] with the patient, and over half of that timew as spent on counseling, coordination of care, and discussing his diagnoses. Referral to vascular surgery placed previously based on venous duplex results. Pt states he is not going to schedule an appointment. Discussed with him again that his wounds continue to recur due to venous insufficiency despite using compression, and he needs to see a vascular surgeon. Pt stated he understood, and he will consider it now that he is healed. All ulcers healed. Apply protective ointment such as aquahpor BID to healed ulcer sites. Pt aware that healed ulcers are fragile and prone to re- ulceration so he needs to protect the areas well. Monitor for recurrence of the ulcers. No open wounds on the lower extremities, return prn. Discussed importance of adequate nutrition, especially increased protein intake to promote healing. Discussed importance of leg elevation, increased activity, and avoiding idle sitting or standing. Pt unable to take PO NSAIDs due to current use of Coumadin. Rx new circaid juxtalite 20-30 mmHg wraps b/l.
== END 2017-08-26 23:59 ==
LOC: WC 14:30
PROVIDERS: Family Provider Family Medicine; PCP Family Medicine; Visit Provider Podiatrist Foot & Ankle Surgery
DX: I87.2 Venous insufficiency (chronic) (peripheral) (principal); L97.322 Non-pressure chronic ulcer of left ankle with fat layer exposed; L97.312 Non-pressure chronic ulcer of right ankle with fat layer exposed; R60.0 Localized edema; Z86.718 Personal history of other venous thrombosis and embolism; Z79.01 Long term (current) use of anticoagulants
CPT/HCPCS: 11042; 29581; 99213; G0463

== ENCOUNTER 2017-09-12 14:30 | Outpatient (RCR) | payer MEDICARE, SELFPAY ==
[2017-08-27 00:36] VITALS: BP 109/66; PULSE 84; RESP 18; TEMP 35.3
[2017-09-05 14:22] VITALS: BP 159/82; PULSE 79; RESP 18; TEMP 36.3
--- NOTE | 2017-09-05 15:32 | PCM.WC.PN ---
(1) Non-pressure chronic ulcer of left calf limited to breakdown of skin Status: Acute Current Visit: Yes Code(s): L97.221 - Non-pressure chronic ulcer of left calf limited to breakdown of skin (2) Non-pressure chronic ulcer of right calf limited to breakdown of skin Status: Resolved Current Visit: Yes Code(s): L97.211 - Non-pressure chronic ulcer of right calf limited to breakdown of skin (3) Venous insufficiency (chronic) (peripheral) Status: Chronic Current Visit: Yes Comment: I87.2 (4) Localized edema Status: Chronic Current Visit: Yes Code(s): R60.0 - Localized edema Type of Wound Date of Service: 09/05/17 Chief Complaint: R and L ankle ulcers History of Wound: This 76-year-old male presents back to the Wound Center for recurrent venous leg ulcerations of the left and right ankles. 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 Patient is also known to have chronic leg edema. He is drinking a protein supplementation drink daily still at this time. He denies fever, chills, nausea, vomiting, leg pain during the day. He had his venous doppler with reflux in the past, but not recently. He denies leg redness or drainage. 05/02--Improved. Vascular testing scheduled for next week. Tolerating 3M 2-layer coban wraps and hydrofera blue well. Pain improved. Denies N/V/F/C. Denies redness, pus, malodor, warmth. 05/09--Improved. Vascular testing done and reviewed. Tolerating 3M 2-layer coban wraps and hydrofera blue well. Pain improved. Denies N/V/F/C. Denies redness, pus, malodor, warmth. 05/16--Improved. Vascular testing done and reviewed. Tolerating 3M 2-layer coban wraps and hydrofera blue well. Pain improved. Denies N/V/F/C. Denies redness, pus, malodor, warmth. 05/30/17--Improved. Tolerating 3M 2-layer coban wraps and hydrofera blue well. Almost no drainge--hydrofera blue is sticking to the ulcers, so we will add adaptic first. Pain improved. Denies N/V/F/C. Denies redness, pus, malodor, warmth. 06/06--Improved. Tolerating 3M 2-layer coban wraps and, adaptic, hydrofera blue well. Almost no drainage. Pain improved. Denies N/V/F/C. Denies redness, pus, malodor, warmth. 06/13--Improved. Tolerating 3M 2-layer coban wraps and, adaptic, hydrofera blue well. Almost no drainage. Pain improved. Denies N/V/F/C. Denies redness, pus, malodor, warmth. Waiting for appointment with Dr. Chapman. 06/20--Improved. Tolerating 3M 2-layer coban wraps and, adaptic, hydrofera blue well. Almost no drainage. Pain improved. Denies N/V/F/C. Denies redness, pus, malodor, warmth. Was contacted by Dr. Chapman's office, but states he cannot schedule an appointment until he deals with his eyes. 06/27--Improved. Tolerating 3M 2-layer coban wraps and, adaptic, hydrofera blue well. Almost no drainage. Pain improved. Denies N/V/F/C. Denies redness, pus, malodor, warmth. R medial ulcer healed. 07/04--Improved. Tolerating 3M 2-layer coban wraps and, adaptic, hydrofera blue well. Almost no drainage. Pain improved. Denies N/V/F/C. Denies redness, pus, malodor, warmth. R medial ulcer remains healed. 07/11--Improved. Tolerating 3M 2-layer coban wraps and, adaptic, hydrofera blue well. Almost no drainage. Pain improved. Denies N/V/F/C. Denies redness, pus, malodor, warmth. R medial ulcer remains healed. 07/18--L medial ankle ulcer improved, but developed a new ulceration just distal to this one. R lateral ankle stable. Tolerating 3M 2-layer coban wraps, adaptic, hydrofera blue well. Almost no drainage. Denies N/V/F/C. Denies redness, pus, malodor, warmth. R medial ulcer remains healed. 07/25--Slowling improving. Tolerating 3M 2-layer coban wraps, adaptic, hydrofera blue well. Almost no drainage. Denies N/V/F/C. Denies redness, pus, malodor, warmth. R medial ulcer remains healed. 08/01--Slowling improving. Tolerating 3M 2-layer coban wraps, adaptic, hydrofera blue well. Almost no drainage. Denies N/V/F/C. Denies redness, pus, malodor, warmth. R medial ulcer remains healed. Distal (inferior) ulcer L medial ankle healed. 08/08--Slowly improving. Tolerating 3M 2-layer coban wraps, adaptic, hydrofera blue well. Almost no drainage. Denies N/V/F/C. Denies redness, pus, malodor, warmth. R medial ulcer remains healed. R lateral ankle ulcer healed. Distal (inferior) ulcer L medial ankle healed. L medial ulcer improved. 08/22--Returned last week for nurse visit for wrap change. All ulcers have healed. Denies s/s of acute bacterial infection. Has circaids at home. 09/05--Recurrent superficial ulcerations with dry skin both calves. Pt has been using regular stockings rather than circaids, and they are digging in to his calves. States he has not received the circaids that we ordered yet. Denies N/V/F/C. Has very superficial ulcerations on the calves with no drainage, no redness, no warmth, no pain. Progress of Wound: New superficial ulcers both calves. - Physical Exam Vital Signs Temp Pulse Resp BP 97.3 F L 79 18 159/82 H 09/05/17 14:22 09/05/17 14:22 09/05/17 14:22 09/05/17 14:22 General: Alert, Oriented x3, Cooperative, No apparent distress Extremities: Edema Skin: Ulcer/ Wound - R and L calf with no erythema, no pus, no malodor, no increased warmth. No clinical signs of acute bacterial infection noted. See wound/edema assessment below. Wound Measurements and Assessment WC - Nurse 1 - General Ulcer Measurement Start: 09/05/17 14:22 Freq: Status: Active Protocol: Activity Type Activity Date Activity User E-Sign Co-Sign Detail Recorded Client Recorded Date Recorded By Document 09/05/17 14:22 DL [id number] 09/05/17 14:36 DL 09/05/17 14:22 Wound Center Nurse 1 [Ulcer Assessment] #15 L Med Cabrales Cluster -Current Size (cm) - Length 0.8 -Current Size (cm) - Width 2.6 -Current Size (cm) - Depth 0.1 -Total Square Cm 2.08 -Photo Taken Yes -Exudate Amt None Present (0 %) -Wound Margin Distinct, Outline Attached -Granulation Amt Large (67-100%) -Granulation Quality Red -Necrosis Amt None Present (0 %) -Structure Exposed N/A -Texture (Nikia-wound Skin Appearance) Scarring -Moisture (Nikia-wound Skin Appearance Dry/Scaly ) -Color (Nikia-wound Skin Appearance) No Abnormality Hemosiderin Staining -Temperature (Nikia-wound Skin No Abnormality Appearance) (Pt Warm) -Ulcer Cleansing Rinsed/ Irrigated with Saline -Foul Odor after Cleansing No -Anesthetic Used 4% Lidocaine Solution #14 R Cabrales Lat Cluster -Current Size (cm) - Length 1.6 -Current Size (cm) - Width 4 -Current Size (cm) - Depth 0.1 -Total Square Cm 6.4 -Photo Taken Yes -Exudate Amt None Present (0 %) -Wound Margin Distinct, Outline Attached -Granulation Amt Large (67-100%) -Granulation Quality Red -Necrosis Amt None Present (0 %) -Structure Exposed N/A -Texture (Nikia-wound Skin Appearance) Scarring -Moisture (Nikia-wound Skin Appearance Dry/Scaly ) -Color (Nikia-wound Skin Appearance) Hemosiderin Staining -Temperature (Nikia-wound Skin No Abnormality Appearance) (Pt Warm) -Ulcer Cleansing Rinsed/ Irrigated with Saline -Foul Odor after Cleansing No -Anesthetic Used 4% Lidocaine Solution [Edema Assessment] -Right Calf (cm) 42 -Right Ankle (cm) 21 -Left Calf (cm) 40 -Left Ankle (cm) 20 WC - Nurse 2 - General Ulcer CM Notes Start: 09/05/17 14:22 Freq: Status: Active Protocol: Activity Type Activity Date Activity User E-Sign Co-Sign Detail Recorded Client Recorded Date Recorded By Document 09/05/17 14:44 MW [id number] 09/05/17 14:47 MW 09/05/17 14:44 Wound Center Nurse 2 [Procedure/Treatment] #15 L Darryl Cabrales Cluster -Time 14:44 -Correct Patient Yes -Correct Side, Site, Position Yes -Correct Procedure Yes -Procedure Performed No -Post Debridement Size (cm) - Length 0.8 -Post Debridement Size (cm) - Width 2.6 -Post Debridement Size (cm) - Depth 0.1 -Total Square Cm 2.08 -Wound/Ulcer Outcome Not Healed -Ulcer Cleansing Rinsed/ Irrigated with Saline -Foul Odor after Cleansing No -Bioengineered Tissue No -Bleeding Controlled with NA -Treatment Response Procedure Tolerated Well #14 R Keron Lat Cluster -Time 14:44 -Correct Patient Yes -Correct Side, Site, Position Yes -Correct Procedure Yes -Procedure Performed No -Post Debridement Size (cm) - Length 1.6 -Post Debridement Size (cm) - Width 4.0 -Post Debridement Size (cm) - Depth 0.1 -Total Square Cm 6.40 -Wound/Ulcer Outcome Not Healed -Ulcer Cleansing Rinsed/ Irrigated with Saline -Foul Odor after Cleansing No -Bioengineered Tissue No -Bleeding Controlled with NA -Treatment Response Procedure Tolerated Well [See Physician Procedure note for Specifics] Pain Scale: 0-10 Numeric [Pain] -Is Patient Pain Free? Yes Debridement Note Post-Debridement Measurements/Treatment WC - Nurse 2 - General Ulcer CM Notes Start: 09/05/17 14:22 Freq: Status: Active Protocol: Activity Type Activity Date Activity User E-Sign Co-Sign Detail Recorded Client Recorded Date Recorded By Document 09/05/17 14:44 MW [id number] 09/05/17 14:47 MW 09/05/17 14:44 Wound Center Nurse 2 #15 L Darryl Cabrales Cluster -Time 14:44 -Correct Patient Yes -Correct Side, Site, Position Yes -Correct Procedure Yes -Procedure Performed No -Post Debridement Size (cm) - Length 0.8 -Post Debridement Size (cm) - Width 2.6 -Post Debridement Size (cm) - Depth 0.1 -Total Square Cm 2.08 -Wound/Ulcer Outcome Not Healed -Ulcer Cleansing Rinsed/ Irrigated with Saline -Foul Odor after Cleansing No -Bioengineered Tissue No -Bleeding Controlled with NA -Treatment Response Procedure Tolerated Well #14 Hollie Cabrales Lat Cluster -Time 14:44 -Correct Patient Yes -Correct Side, Site, Position Yes -Correct Procedure Yes -Procedure Performed No -Post Debridement Size (cm) - Length 1.6 -Post Debridement Size (cm) - Width 4.0 -Post Debridement Size (cm) - Depth 0.1 -Total Square Cm 6.40 -Wound/Ulcer Outcome Not Healed -Ulcer Cleansing Rinsed/ Irrigated with Saline -Foul Odor after Cleansing No -Bioengineered Tissue No -Bleeding Controlled with NA -Treatment Response Procedure Tolerated Well Pain Scale: 0-10 Numeric Is Patient Pain Free? Yes No debridement was completed today Assessment/Plan Active Problems Non-pressure chronic ulcer of left calf limited to breakdown of skin (Acute) Localized edema (Chronic) Venous insufficiency (chronic) (peripheral) (Chronic) I87.2 Assessment: See diagnoses Plan: Exam. A total of 25 minutes was spent [id number] with the patient, and over half of that time was spent on counseling, coordination of care, and discussing his diagnoses. Referral to vascular surgery placed previously based on venous duplex results. Pt states he is not going to schedule an appointment. Discussed with him again that his wounds continue to recur due to venous insufficiency despite using compression, and he needs to see a vascular surgeon. Pt stated he understood. Apply moisturizer to legs. Apply adaptic to superficial ulcers, apply 3M 2-layer coban wraps today. Pt should receive new circaids by next week--bring them with him. Return in 1 week. Monitor for redness, pus, malodor, warmth, pain, inc swelling as well as for N/V/F/C and go to the ED with these. Discussed importance of adequate nutrition, especially increased protein intake to promote healing. Discussed importance of leg elevation, increased activity, and avoiding idle sitting or standing. Pt unable to take PO NSAIDs due to current use of Coumadin.
--- NOTE | 2017-09-05 15:37 | PN.PCM_ITS ---
(1) Non-pressure chronic ulcer of left calf limited to breakdown of skin Status: Acute Current Visit: Yes Code(s): L97.221 - Non-pressure chronic ulcer of left calf limited to breakdown of skin (2) Non-pressure chronic ulcer of right calf limited to breakdown of skin Status: Resolved Current Visit: Yes Code(s): L97.211 - Non-pressure chronic ulcer of right calf limited to breakdown of skin (3) Venous insufficiency (chronic) (peripheral) Status: Chronic Current Visit: Yes Comment: I87.2 (4) Localized edema Status: Chronic Current Visit: Yes Code(s): R60.0 - Localized edema Type of Wound Date of Service: 09/05/17 Chief Complaint: R and L ankle ulcers History of Wound: This 76-year-old male [facility] for recurrent venous leg ulcerations of the left and right ankles. 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 Patient is also known to have chronic leg edema. He is drinking a protein supplementation drink daily still at this time. He denies fever, chills, nausea, vomiting, leg pain during the day. He had his venous doppler with reflux in the past, but not recently. He denies leg redness or drainage. 05/02--Improved. Vascular testing scheduled for next week. Tolerating 3M 2-layer coban wraps and hydrofera blue well. Pain improved. Denies N/V/F/C. Denies redness, pus, malodor, warmth. 05/09--Improved. Vascular testing done and reviewed. Tolerating 3M 2-layer coban wraps and hydrofera blue well. Pain improved. Denies N/V/F/C. Denies redness, pus, malodor, warmth. 05/16--Improved. Vascular testing done and reviewed. Tolerating 3M 2-layer coban wraps and hydrofera blue well. Pain improved. Denies N/V/F/C. Denies redness, pus, malodor, warmth. 05/30/17--Improved. Tolerating 3M 2-layer coban wraps and hydrofera blue well. Almost no drainge-- hydrofera blue is sticking to the ulcers, so we will add adaptic first. Pain improved. Denies N/V/F/C. Denies redness, pus, malodor, warmth. 06/06-- Improved. Tolerating 3M 2-layer coban wraps and, adaptic, hydrofera blue well. Almost no drainage. Pain improved. Denies N/V/F/C. Denies redness, pus, malodor, warmth. 06/13--Improved. Tolerating 3M 2-layer coban wraps and, adaptic, hydrofera blue well. Almost no drainage. Pain improved. Denies N/V/F/ C. Denies redness, pus, malodor, warmth. Waiting for appointment with Dr. Chapman. 06/20--Improved. Tolerating 3M 2-layer coban wraps and, adaptic, hydrofera blue well. Almost no drainage. Pain improved. Denies N/V/F/C. Denies redness, pus, malodor, warmth. Was contacted by Dr. Chapman's office, but states he cannot schedule an appointment until he deals with his eyes. --Improved. Tolerating 3M 2-layer coban wraps and, adaptic, hydrofera blue well. Almost no drainage. Pain improved. Denies N/V/F/C. Denies redness, pus , malodor, warmth. R medial ulcer healed. 07/04--Improved. Tolerating 3M 2- layer coban wraps and, adaptic, hydrofera blue well. Almost no drainage. Pain improved. Denies N/V/F/C. Denies redness, pus, malodor, warmth. R medial ulcer remains healed. 07/11--Improved. Tolerating 3M 2-layer coban wraps and, adaptic, hydrofera blue well. Almost no drainage. Pain improved. Denies N/V/F/ C. Denies redness, pus, malodor, warmth. R medial ulcer remains healed. 07/18- -L medial ankle ulcer improved, but developed a new ulceration just distal to this one. R lateral ankle stable. Tolerating 3M 2-layer coban wraps, adaptic, hydrofera blue well. Almost no drainage. Denies N/V/F/C. Denies redness, pus , malodor, warmth. R medial ulcer remains healed. 07/25--Slowling improving. Tolerating 3M 2-layer coban wraps, adaptic, hydrofera blue well. Almost no drainage. Denies N/V/F/C. Denies redness, pus, malodor, warmth. R medial ulcer remains healed. 08/01--Slowling improving. Tolerating 3M 2-layer coban wraps, adaptic, hydrofera blue well. Almost no drainage. Denies N/V/F/C. Denies redness, pus, malodor, warmth. R medial ulcer remains healed. Distal ( inferior) ulcer L medial ankle healed. 08/08--Slowly improving. Tolerating 3M 2-layer coban wraps, adaptic, hydrofera blue well. Almost no drainage. Denies N/V/F/C. Denies redness, pus, malodor, warmth. R medial ulcer remains healed. R lateral ankle ulcer healed. Distal (inferior) ulcer L medial ankle healed. L medial ulcer improved. 08/22--Returned last week for nurse visit for wrap change. All ulcers have healed. Denies s/s of acute bacterial infection. Has circaids at home. 09/05--Recurrent superficial ulcerations with dry skin both calves. Pt has been using regular stockings rather than circaids, and they are digging in to his calves. States he has not received the circaids that we ordered yet. Denies N/V/F/C. Has very superficial ulcerations on the calves with no drainage, no redness, no warmth, no pain. Progress of Wound: New superficial ulcers both calves. - Physical Exam Vital Signs Temp Pulse Resp BP 97.3 F L 79 18 159/82 H 09/05/17 14:22 09/05/17 14:22 09/05/17 14:22 09/05/17 14:22 General: Alert, Oriented x3, Cooperative, No apparent distress Extremities: Edema Skin: Ulcer/ Wound - R and L calf with no erythema, no pus, no malodor, no increased warmth. No clinical signs of acute bacterial infection noted. See wound/edema assessment below. Wound Measurements and Assessment WC - Nurse 1 - General Ulcer Measurement Start: 09/05/17 14:22 Freq: Status: Active Protocol: Activity Type Activity Date Activity User E-Sign Co-Sign Detail Recorded Client Recorded Date Recorded By Document 09/05/17 14:22 DL [id number] 09/05/17 14:36 DL 09/05/17 14:22 Wound Center Nurse 1 [Ulcer Assessment] #15 L Med Cabrales Cluster -Current Size (cm) - Length 0.8 -Current Size (cm) - Width 2.6 -Current Size (cm) - Depth 0.1 -Total Square Cm 2.08 -Photo Taken Yes -Exudate Amt None Present (0 %) -Wound Margin Distinct, Outline Attached -Granulation Amt Large (67-100%) -Granulation Quality Red -Necrosis Amt None Present (0 %) -Structure Exposed N/A -Texture (Nikia-wound Skin Appearance) Scarring -Moisture (Nikia-wound Skin Appearance Dry/Scaly ) -Color (Nikia-wound Skin Appearance) No Abnormality Hemosiderin Staining -Temperature (Nikia-wound Skin No Abnormality Appearance) (Pt Warm) -Ulcer Cleansing Rinsed/ Irrigated with Saline -Foul Odor after Cleansing No -Anesthetic Used 4% Lidocaine Solution #14 R Cabrales Lat Cluster -Current Size (cm) - Length 1.6 -Current Size (cm) - Width 4 -Current Size (cm) - Depth 0.1 -Total Square Cm 6.4 -Photo Taken Yes -Exudate Amt None Present (0 %) -Wound Margin Distinct, Outline Attached -Granulation Amt Large (67-100%) -Granulation Quality Red -Necrosis Amt None Present (0 %) -Structure Exposed N/A -Texture (Nikia-wound Skin Appearance) Scarring -Moisture (Nikia-wound Skin Appearance Dry/Scaly ) -Color (Nikia-wound Skin Appearance) Hemosiderin Staining -Temperature (Nikia-wound Skin No Abnormality Appearance) (Pt Warm) -Ulcer Cleansing Rinsed/ Irrigated with Saline -Foul Odor after Cleansing No -Anesthetic Used 4% Lidocaine Solution [Edema Assessment] -Right Calf (cm) 42 -Right Ankle (cm) 21 -Left Calf (cm) 40 -Left Ankle (cm) 20 WC - Nurse 2 - General Ulcer CM Notes Start: 09/05/17 14:22 Freq: Status: Active Protocol: Activity Type Activity Date Activity User E-Sign Co-Sign Detail Recorded Client Recorded Date Recorded By Document 09/05/17 14:44 MW [id number] 09/05/17 14:47 MW 09/05/17 14:44 Wound Center Nurse 2 [Procedure/Treatment] #15 L Darryl Cabrales Cluster -Time 14:44 -Correct Patient Yes -Correct Side, Site, Position Yes -Correct Procedure Yes -Procedure Performed No -Post Debridement Size (cm) - Length 0.8 -Post Debridement Size (cm) - Width 2.6 -Post Debridement Size (cm) - Depth 0.1 -Total Square Cm 2.08 -Wound/Ulcer Outcome Not Healed -Ulcer Cleansing Rinsed/ Irrigated with Saline -Foul Odor after Cleansing No -Bioengineered Tissue No -Bleeding Controlled with NA -Treatment Response Procedure Tolerated Well #14 R Keron Lat Cluster -Time 14:44 -Correct Patient Yes -Correct Side, Site, Position Yes -Correct Procedure Yes -Procedure Performed No -Post Debridement Size (cm) - Length 1.6 -Post Debridement Size (cm) - Width 4.0 -Post Debridement Size (cm) - Depth 0.1 -Total Square Cm 6.40 -Wound/Ulcer Outcome Not Healed -Ulcer Cleansing Rinsed/ Irrigated with Saline -Foul Odor after Cleansing No -Bioengineered Tissue No -Bleeding Controlled with NA -Treatment Response Procedure Tolerated Well [See Physician Procedure note for Specifics] Pain Scale: 0-10 Numeric [Pain] -Is Patient Pain Free? Yes Debridement Note Post-Debridement Measurements/Treatment WC - Nurse 2 - General Ulcer CM Notes Start: 09/05/17 14:22 Freq: Status: Active Protocol: Activity Type Activity Date Activity User E-Sign Co-Sign Detail Recorded Client Recorded Date Recorded By Document 09/05/17 14:44 MW [id number] 09/05/17 14:47 MW 09/05/17 14:44 Wound Center Nurse 2 #15 L Darryl Cabrales Cluster -Time 14:44 -Correct Patient Yes -Correct Side, Site, Position Yes -Correct Procedure Yes -Procedure Performed No -Post Debridement Size (cm) - Length 0.8 -Post Debridement Size (cm) - Width 2.6 -Post Debridement Size (cm) - Depth 0.1 -Total Square Cm 2.08 -Wound/Ulcer Outcome Not Healed -Ulcer Cleansing Rinsed/ Irrigated with Saline -Foul Odor after Cleansing No -Bioengineered Tissue No -Bleeding Controlled with NA -Treatment Response Procedure Tolerated Well #14 Hollie Cabrales Lat Cluster -Time 14:44 -Correct Patient Yes -Correct Side, Site, Position Yes -Correct Procedure Yes -Procedure Performed No -Post Debridement Size (cm) - Length 1.6 -Post Debridement Size (cm) - Width 4.0 -Post Debridement Size (cm) - Depth 0.1 -Total Square Cm 6.40 -Wound/Ulcer Outcome Not Healed -Ulcer Cleansing Rinsed/ Irrigated with Saline -Foul Odor after Cleansing No -Bioengineered Tissue No -Bleeding Controlled with NA -Treatment Response Procedure Tolerated Well Pain Scale: 0-10 Numeric Is Patient Pain Free? Yes No debridement was completed today Assessment/Plan Active Problems Non-pressure chronic ulcer of left calf limited to breakdown of skin (Acute) Localized edema (Chronic) Venous insufficiency (chronic) (peripheral) (Chronic) I87.2 Assessment: See diagnoses Plan: Exam. A total of 25 minutes was spent [id number] with the patient, and over half of that time was spent on counseling, coordination of care, and discussing his diagnoses. Referral to vascular surgery placed previously based on venous duplex results. Pt states he is not going to schedule an appointment. Discussed with him again that his wounds continue to recur due to venous insufficiency despite using compression, and he needs to see a vascular surgeon. Pt stated he understood. Apply moisturizer to legs. Apply adaptic to superficial ulcers, apply 3M 2-layer coban wraps today. Pt should receive new circaids by next week--bring them with him. Return in 1 week. Monitor for redness, pus, malodor, warmth, pain, inc swelling as well as for N/V/F/C and go to the ED with these. Discussed importance of adequate nutrition, especially increased protein intake to promote healing. Discussed importance of leg elevation, increased activity, and avoiding idle sitting or standing. Pt unable to take PO NSAIDs due to current use of Coumadin.
[2017-09-12 14:21] VITALS: BP 157/95; PULSE 86; RESP 16; TEMP 36.3
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
== END 2017-09-25 23:59 ==
LOC: WC 14:30
PROVIDERS: Family Provider Family Medicine; PCP Family Medicine; Visit Provider Podiatrist Foot & Ankle Surgery
DX: I87.2 Venous insufficiency (chronic) (peripheral) (principal); L97.221 Non-pressure chronic ulcer of left calf limited to breakdown of skin; R60.0 Localized edema
CPT/HCPCS: 29581; 99213; G0463

== ENCOUNTER 2019-02-26 23:47 | Emergency (ER) | payer MEDICARE, SELFPAY ==
[2019-02-26 23:48] VITALS: BP 124/81; PULSE 94; RESP 18; TEMP 36.7; O2SAT 96; BMI 25.8
--- NOTE | 2019-02-27 00:32 | ED.VIS.GEN ---
History of Present Illness Chief Complaint: Edema Narrative: Patient is a 78-year-old male who presents with wounds on his legs. He is a poor informant which limits history. He has previously seen wound care for wounds on his legs but has not needed to see them in a year and reports that he been doing well. He had a couple scabs on his left leg but is unable to provide a clear duration on how long. Over the last 3 to 4 days he has developed redness on both legs as well as some drainage from wounds on the left leg. He denies systemic symptoms such as fevers nausea vomiting. He denies diabetes. It is unclear if he has a history of any arterial disease. He has had several surgeries on the left leg by Dr. Goodwin but cannot clearly tell me what was done or why. He is on warfarin for history of DVTs. Past Medical History - Allergies and Home Meds Allergies/Adverse Reactions: Allergies No Known Allergies Allergy (Verified 02/26/19 23:51) Primary Care Physician: Samuel Cramer DO [Primary Care Provider] - Past Medical History: - - Chronic venous stasis Surgical History: - - ventral hernia repair in 2009, endo venous laser ablation of the R greater Saphenous and small Saphenous veins in February of 2010, prostate biopsy, I&D's by Dr. Goodwin in 2009 Smoking Status: Former smoker - Family History Maternal Family History: Reports: - - His mother at the age of 57 and suffered from morbid obesity, ethanol and nicotine abuse. Paternal Family History: Reports: - - His father at the age of 70 of unknown causes. Review of Systems All systems negative except as indicated General: Denies: Fever Cardiovascular: Denies: Chest pain Respiratory: Denies: Dyspnea Gastrointestinal: Denies: Vomiting, Diarrhea Skin: Reports: Rash Physical Exam Vital Signs/Narrative: Vital Signs Temp Pulse Resp BP Pulse Ox 02/26/19 23:48 98.1 F 94 18 124/81 H 96 Inital Vital Signs reviewed: Yes General: Well nourished Head: Normocephalic Eyes: EOMI ENT: Moist mucous membranes Neck: Supple Cardiovascular: Regular rate Respiratory: No distress Abdomen: Soft Extremities: - - Patient has chronic venous stasis changes of the lower extremities. He has 2 ulcers along the medial lower leg/open wounds the more proximal measures 4 cm in diameter the more distal one measures 4 x 5 cm there is some drainage from the upper wound he has erythema of both lower legs he has brisk capillary refill Diagnostic/Tx/Re-eval Laboratory Results 02/27/19 02/27/19 02/27/19 00:35 00:35 00:35 WBC 7.9 RBC 4.13 L Hgb 12.1 L Hct 36.8 L MCV 89.1 MCH 29.3 MCHC 32.9 RDW Std Deviation 43.9 RDW Coeff of Regi 13.4 Plt Count 277 MPV 9.1 Immature Gran % (Auto) 0.300 Neut % (Auto) 71.4 H Lymph % (Auto) 14.8 L [place] % (Auto) 10.8 H Eos % (Auto) 2.3 Baso % (Auto) 0.4 Absolute Neuts (auto) 5.7 Absolute Lymphs (auto) 1.17 Nucleated RBC % 0 PT 40.9 H INR 4.2 H* Sodium 138 Potassium 4.3 Chloride 104 Carbon Dioxide 27.0 Anion Gap 7 BUN 13 Creatinine 0.92 Estim Creat Clear Calc 69.43 Est GFR (MDRD) Af Amer 102 Est GFR (MDRD) Non-Af 85 BUN/Creatinine Ratio 14.1 Glucose 88 Calcium 8.7 - Medical Decision Making Labs unremarkable except INR 4.2. At this point I do not believe he meets inpatient criteria. His cellulitis is mild. I do feel he is an appropriate candidate for outpatient treatment with the understanding that if he does not improve or develops any new or worsening symptoms or any systemic symptoms he needs to return. He was given IV vancomycin here while undergoing work-up. We will discharge on clindamycin. Patient advised on signs and symptoms to monitor for. We will also have him decrease his warfarin dose for the next few days until he can get his INR rechecked. Patient agreeable to this plan. All questions answered bedside. Patient discharged. ED Disposition - Plan for ED Patient: Disposition: Home or Assisted Living Diagnosis: Venous stasis ulcers, Cellulitis Instructions: Cellulitis Prescriptions: Clindamycin HCl [Cleocin] 300 mg PO Q6H #40 cap Prescription Printed Referrals: Samuel Cramer DO [Primary Care Provider] - Additional Instructions: Only take 1 of your Coumadin/warfarin tablets (3 mg) for the next 3 days instead of 2 tablets. Have your INR rechecked by your primary care doctor. Return for any new or worsening symptoms including but not limited to fever increased drainage or pain, worsening redness.
[2019-02-27 00:47] LABS: Absolute Lymphocyte Count 1.17 X10^3/uL (0.83-4.51); Absolute Neutrophil Count 5.7 X10^3/uL (2.0-7.7); Basophil# 0.03 X10^3/uL; Basophil% 0.4 % (0-1); Eosinophil# 0.18 X10^3/uL; Eosinophils% 2.3 % (0-5); Hematocrit 36.8 % (40-54); Hemoglobin 12.1 g/dL (13.0-16.5); Lymphocyte # 1.17 X10^3/ul (4.0); Lymphocyte % 14.8 % (19-41); Mean Corp Hgb Conc 32.9 g/dL (32-36); Mean Corpuscular Hgb 29.3 pg (27.0-32.0); Mean Corpuscular Volume 89.1 fL (80-94); Mean Platelet Vol. 9.1 fl (6.2-12.0); Monocyte# 0.85 X10^3/uL; Monocyte% 10.8 % (0-10); NRBC Flagged by Analyzer 0 % (0-5); Neutrophil # 5.65 X10^3/uL (2.7-7.7); Neutrophil % 71.4 % (47-70); Platelet Count 277 K/mm3 (150-450); RBC Distribution Width CV 13.4 % (11.6-14.6); RBC Distribution Width SD 43.9 fl (35.1-43.9); Red Blood Count 4.13 M/mm3 (4.6-6.2); White Blood Count 7.9 K/mm3 (4.4-11.0)
[2019-02-27 00:58] LABS: Prothrombin Time (Protime)PT. 40.9 SECONDS (11.7-14.9)
[2019-02-27 01:02] LABS: International Normalized Ratio 4.2
--- NOTE | 2019-02-27 01:02 | ED.RN ---
lab called with critical lab results. inr 4.2. Dr. Hicks made aware no new orders at this time
[2019-02-27 01:07] LABS: Anion Gap 7 (5-15); BUN 13 mg/dL (7-18); BUN/Creat Ratio 14.1 RATIO (10-20); Calcium,Total 8.7 mg/dL (8.5-10.1); Chloride 104 mmol/L (98-107); Creatinine, Serum 0.92 mg/dL (0.70-1.30); EST Glomerular Filtration Rate 85 mL/min (>60); Est Glom Filt Rate - Afr Amer 102 mL/min (>60); Estimated Creatinine Clearance 69.43 ml/min; Glucose 88 mg/dL (74-106); Potassium 4.3 mmol/L (3.5-5.1); Sodium Level 138 mmol/L (136-145)
[2019-02-27 01:48] VITALS: BP 128/86; PULSE 76; RESP 18; O2SAT 96
[2019-02-27 03:14] VITALS: BP 135/78; PULSE 80; RESP 16; O2SAT 97
== END 2019-02-27 03:15 | disposition home or self-care (01) ==
PROVIDERS: Emergency Provider Emergency Medicine; Family Provider Family Medicine; PCP Family Medicine
DX: I87.8 Other specified disorders of veins (principal); L97.809 Non-pressure chronic ulcer of other part of unspecified lower leg with unspecified severity; L03.116 Cellulitis of left lower limb; L03.115 Cellulitis of right lower limb; Z86.718 Personal history of other venous thrombosis and embolism; Z79.01 Long term (current) use of anticoagulants; Z87.891 Personal history of nicotine dependence
CPT/HCPCS: 80048; 85025; 85610; 96365; 96366; 99283; J7050; A4216

== ENCOUNTER 2020-11-05 15:11 | Inpatient (IN) | payer OTHER, MEDICARE, SELFPAY ==
[2020-11-05] VITALS (18 sets, daily range): BP systolic 58–161; BP diastolic 42–92; PULSE 73–101; RESP 16–28; TEMP 36.4–37; O2SAT 81–100; BMI 31.3; BMI 30.7
--- NOTE | 2020-11-05 12:00 | MRI_ITS ---
STUDY: MRA NECK WITHOUT CONTRAST REASON FOR EXAM: Male, 80 years old. Encephalopathy TECHNIQUE: Source images were obtained, MIPs were performed. The study was performed unenhanced. There is motion artifact. COMPARISON: None. FINDINGS: RIGHT CAROTID ARTERIES: Normal right common carotid artery (CCA). Normal right common carotid bulb. Normal origin of the right internal carotid (ICA) artery without a hemodynamically significant stenosis. Normal visualized cervical portion of the right internal carotid artery. Normal origin of the right external carotid artery (ECA). LEFT CAROTID ARTERIES: Normal left common carotid artery (CCA). Normal left common carotid bulb. Normal origin of the left internal carotid (ICA) artery without a hemodynamically significant stenosis. Normal visualized cervical portion of the left internal carotid artery. Normal origin of the left external carotid artery (ECA). VERTEBRAL ARTERIES: There is antegrade flow within the bilateral vertebral arteries with a small right vertebral artery, and a dominant left vertebral artery. MRI/MRA Neck without Contrast IMPRESSION: Normal bilateral cervical carotid and vertebral arteries. Detail limited by motion artifact. Electronically Signed: [place] Millan MD at 15:43 EDT , Service support ,
--- NOTE | 2020-11-05 15:46 | RAD_ITS ---
STUDY: X-RAY - LEFT TIBIA AND FIBULA REASON FOR EXAM: Male, 80 years old. infection TECHNIQUE: 2 view(s) of the tibia and fibula were obtained. COMPARISON: None. FINDINGS: Demineralized osseous structures without fracture or dislocation. Minimal periosteal reaction is noted along the tibia. Negative for osteolytic or blastic bone lesions. Small vessel calcification. Soft tissue swelling. Soft tissue irregularity possibly ulceration juxtapose the medial malleolus with only underlying hypertrophic degenerative bone changes. RAD/Tibia & Fibula 2 Views IMPRESSION: Negative for osteolytic bone lesion, fracture or dislocation. Mild periosteal thickening of the tibia likely reactive secondary to chronic soft tissue/vascular changes. Small vessel calcification. Electronically Signed: Libertad Rolon MD at 18:03 EDT , Service support ,
--- NOTE | 2020-11-05 15:47 | EKG12_ITS ---
Test Reason : ABDOMINAL PAIN Blood Pressure : / mmHG Vent. Rate : 075 BPM Atrial Rate : 075 BPM P-R Int : 166 ms QRS Dur : 080 ms QT Int : 412 ms P-R-T Axes : 071 -12 037 degrees QTc Int : 460 ms Normal sinus rhythm Normal ECG Confirmed by JACK LAMBERT, FRANCISCA ([id number]), design editor SIMBA ROLDAN ([id number]) on 11/09/2020 1:53:38 PM Referred By: RU Confirmed By:FRANCISCA SANTIAGO MD
--- NOTE | 2020-11-05 15:48 | EDS_ITS ---
HPI History of Present Illness Chief Complaint: Wound Informant: patient Narrative Narrative: 80-year-old male was brought to the emergency department by his neighbor. He tells me that for several years he has had lymphedema of the legs. He had been seen wound center for the lymphedema and chronic wounds due to venous stasis. He has not been to the wound center for at least a year he states. His neighbor informs me that he has been telling him that he needs to go to eye doctor because of the smell from his legs. The [place] has sent people to his home and he has not let them in. Today he had a home visit in the after seen condition of his legs they took him to the doctor who advised him to go to the emergency department. The patient wanted to go to the wound center but they did not have an appointment for him. He is requesting that I simply wrapped his legs and [place] and sent him home. He states that he is otherwise a very healthy individual. PFSH PFSH Home Medications warfarin [Jantoven] 6 mg PO QODAY 06/12/14 [History Last Taken 03/13/15 09:00] aspirin 81 mg PO DAILY@0800 06/18/14 [History Last Taken 03/13/15 09:00] ferrous sulfate [Iron (ferrous sulfate)] 325 mg PO DAILY 07/27/16 [History Last Taken Unknown] clindamycin HCl 300 mg PO Q6H #40 cap 02/27/19 [Rx Last Taken Unknown] warfarin 3 mg PO QODAY 02/27/19 [History Last Taken Unknown] Allergy/AdvReac Type Severity Reaction Status Date / Time No Known Allergies Allergy Verified 11/05/20 15:12 Social History (Updated 11/05/20 @ 15:[address] Chester Padgett, DO) Smoking Status: Never smoker substance use type: does not use ROS ROS ED Constitutional Constitutional ED: Denies chills or weight loss Eyes Eyes: Denies change in vision or diplopia ENT ENT ED: Denies ear pain, rhinorrhea or sore throat Cardiovascular Cardiovascular: Denies chest pain, orthopnea, palpitations or racing heartbeat Respiratory/Chest Respiratory/Chest: Denies cough, dyspnea or orthopnea Gastrointestinal Gastrointestinal: Denies abdominal pain, diarrhea, nausea or vomiting Genitourinary Genitourinary ED: Denies dysuria, hematuria or urinary frequency Musculoskeletal Musculoskeletal: Denies arthralgias or myalgias Integumentary Reports other Details: See history of present illness ; Denies abscess or rash Neurologic Neurologic: Denies headache(s) or weakness Psychiatric Psychiatric: Denies anxiety, depression, suicidal ideation or suicidal thoughts Endocrine Endocrinology: Denies polydipsia, polyphagia or polyuria Allergic/Immunologic Allergic/Immunologic ED: Denies mouth swelling, tongue swelling or urticaria EXAM Physical Exam Narrative Exam Narrative: There is a smell of rotting flesh coming from the patient Const Vital Signs: 11/05/20 15:14 11/05/20 15:16 11/05/20 16:16 Temperature 97.9 F 98.4 F 98.2 F Temperature Source Temporal Oral Oral Pulse Rate 91 73 80 Respiratory Rate 17 19 H 23 H Blood Pressure 138/76 H 134/67 H 140/84 H Blood Pressure Mean 96 89 102 Pulse Ox 96 98 96 Oxygen Delivery Method Room Air Room Air Room Air 11/05/20 17:00 Temperature 98.6 F Temperature Source Oral Pulse Rate 89 Respiratory Rate 24 H Blood Pressure 161/78 H Blood Pressure Mean 105 Pulse Ox 97 Oxygen Delivery Method Room Air Positive well nourished and well developed General Appearance ED: well developed HEENT Reports normocephalic, head/scalp atraumatic and moist mucous membranes Eyes PERRL and EOMs intact bilaterally Neck no lymphadenopathy, supple and no JVD Resp normal respiratory effort and clear to auscultation bilaterally Cardio regular rate, regular rhythm and no murmurs GI normal to inspection, nondistended, normoactive bowel sounds and non-tender Palpation: soft Back/Spine no CVA tenderness and normal ROM Extremity Extremity Narrative: Bilateral lower extremities are significantly swollen. There is chronic thickening of the skin. The toes are swollen together. There is a gelatinous black ooze in his shoe coming from the heel of his left foot. The sock is adhered to the skin. There are several 3 to 4 cm round skin ulcerations on the leg. The left foot is erythematous. The right leg I do not appreciate any significant ulcerations. General Extremety ED: Yes edema General Extremity: edema Neuro oriented x3 and CN's II-XII intact bilaterally Sensorium / Orientation: alert Motor Exam: strength 5/5 throughout Psych mental status grossly normal Mood & Affect: Negative for depressed or tearful Skin no rashes or lesions noted and no wounds MDM MDM MDM Narrative Medical decision making narrative: I spoke with social work to potentially get Adult Protective Services involved. Blood cultures were obtained as well as wound culture. Patient received Zosyn and vancomycin. Patient received the Zosyn without any difficulty. While receiving the vancomycin patient began to not feel well. He appeared to be experiencing red man syndrome tender. Benadryl was ordered. Before he could receive the Benadryl the patient stated that he felt like he was going to pass out. He did go unresponsive with some questionable seizure-like activity. He urinated himself. Blood pressure declined to 50 systolic and he became bradycardic. IV fluids were started and he received supplemental oxygen. His blood pressure started to improve. CT the brain will be ordered. Repeat EKG was ordered to compare to the first. Care the patient is turned over to the night physician and I will speak with the hospitalist. Lab Data Attestation: I reviewed the patient's lab results. Labs: Laboratory Results - last 24 hr 11/05/20 11/05/20 11/05/20 15:50 15:50 15:50 WBC 7.1 RBC 4.14 L Hgb 12.1 L Hct 37.4 L MCV 90.3 MCH 29.2 MCHC 32.4 RDW Std Deviation 43.4 RDW Coeff of Regi 13.2 Plt Count 240 MPV 8.5 Immature Gran % (Auto) 0.400 Neut % (Auto) 68.9 Lymph % (Auto) 17.4 L [place] % (Auto) 9.9 Eos % (Auto) 3.0 Baso % (Auto) 0.4 Absolute Neuts (auto) 4.9 Absolute Lymphs (auto) 1.23 Nucleated RBC % 0 PT 13.9 INR 1.1 APTT 25.0 Sodium 139 Potassium 3.9 Chloride 105 Carbon Dioxide 27.0 Anion Gap 7 BUN 13 Creatinine 0.95 Estim Creat Clear Calc 65.10 Est GFR (MDRD) Af Amer 99 Est GFR (MDRD) Non-Af 82 BUN/Creatinine Ratio 13.7 Glucose 89 Lactic Acid Calcium 8.9 Total Bilirubin 0.90 AST 14 L ALT 15 L Alkaline Phosphatase 100 Total Protein 7.7 Albumin 3.4 Globulin 4.3 H Albumin/Globulin Ratio 0.8 L 11/05/20 15:50 WBC RBC Hgb Hct MCV MCH MCHC RDW Std Deviation RDW Coeff of Regi Plt Count MPV Immature Gran % (Auto) Neut % (Auto) Lymph % (Auto) [place] % (Auto) Eos % (Auto) Baso % (Auto) Absolute Neuts (auto) Absolute Lymphs (auto) Nucleated RBC % PT INR APTT Sodium Potassium Chloride Carbon Dioxide Anion Gap BUN Creatinine Estim Creat Clear Calc Est GFR (MDRD) Af Amer Est GFR (MDRD) Non-Af BUN/Creatinine Ratio Glucose Lactic Acid 1.5 Calcium Total Bilirubin AST ALT Alkaline Phosphatase Total Protein Albumin Globulin Albumin/Globulin Ratio EKG Initial EKG: Attestation: I personally reviewed and interpreted this EKG as follows: Comments: EKG demonstrates a normal sinus rhythm at a rate of 75. 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
--- NOTE | 2020-11-05 15:51 | RAD_ITS ---
STUDY: X-RAY - RIGHT TIBIA AND FIBULA REASON FOR EXAM: Male, 80 years old. infection TECHNIQUE: 2 view(s) of the tibia and fibula were obtained. COMPARISON: None. FINDINGS: Normal visualized tibia. Normal visualized fibula. Demineralized osseous structures are without fracture or osteolytic bone lesion. Generalized soft tissue swelling. Arterial calcifications and venous phleboliths. RAD/Tibia & Fibula 2 Views IMPRESSION: Soft tissue swelling with venous phleboliths and arterial calcification. Negative for osteolytic or blastic bone lesion. Demineralized osseous structures. Electronically Signed: Libertad Rolon MD at 18:04 EDT , Service support ,
--- NOTE | 2020-11-05 15:51 | RAD_ITS ---
STUDY: X-RAY - RIGHT FOOT CLINICAL: Male, 80 years old. infection TECHNIQUE: 2 view(s) of the foot. COMPARISON: None. FINDINGS: Mild generalized soft tissue swelling. Demineralized osseous structures most notably the distal metatarsals and phalanges. Otherwise normal calcaneus, talus and tarsals. Normal metatarsals. Normal metatarsophalangeal joint of the great toe. Normal tibial and fibular sesamoid bones. Degenerative narrowing of the interphalangeal joint of the great toe. Negative for osteolytic or blastic changes of the phalanges of the great toe. Limited visualization of the metatarsophalangeal joints of the second through the fourth toe due to dorsiflexion of the of the phalanges with foreshortening and overlapping. Second toe: Negative for osteolytic or blastic bone lesion. Degenerative narrowing of the interphalangeal joints. Third toe: Cannot assess the second metatarsophalangeal joint or proximal end of the proximal phalanx. Probable old fracture deformity of the distal end of the middle phalanx. Degenerative narrowing of the interphalangeal joints. Fourth toe: Foreshortened and overlapping proximal and middle phalanx which cannot be accurately assessed. Normal distal phalanx. Fifth toe: Severe dorsi flexion and medial angulation of the proximal phalanx, possibly subluxation or dislocation. Abnormal alignment of the proximal interphalangeal joint. Grossly negative for osteolytic or blastic bone lesions. Small vessel calcification. RAD/Foot 2 Views IMPRESSION: Mild soft tissue swelling more notably distal foot and toes with about emphysematous changes or foreign body. Unremarkable proximal and mid foot. Demineralized distal foot and phalanges. Limited visibility particularly of the metatarsophalangeal joints and proximal phalange ease at multiple levels as described above secondary to dorsiflexion. Probably a chronic deformity of the fourth and fifth toes. Old fracture of the distal end of the middle phalanx of the third toe. Grossly negative for osteolytic or blastic bone lesions. Electronically Signed: Libertad Rolon MD at 18:00 EDT , Service support ,
[2020-11-05 16:14] LABS: Absolute Lymphocyte Count 1.23 X10^3/uL (0.83-4.51); Absolute Neutrophil Count 4.9 X10^3/uL (2.0-7.7); Basophil# 0.03 X10^3/uL; Basophil% 0.4 % (0-1); Eosinophil# 0.21 X10^3/uL; Hematocrit 37.4 % (40-54); Hemoglobin 12.1 g/dL (13.0-16.5); Lymphocyte # 1.23 X10^3/ul (0.83-4.51); Lymphocyte % 17.4 % (19-41); Mean Corp Hgb Conc 32.4 g/dL (32-36); Mean Corpuscular Hgb 29.2 pg (27.0-32.0); Mean Corpuscular Volume 90.3 fL (80-94); Mean Platelet Vol. 8.5 fl (6.2-12.0); Monocyte% 9.9 % (0-10); NRBC Flagged by Analyzer 0 % (0-5); Neutrophil # 4.88 X10^3/uL (2.7-7.7); Neutrophil % 68.9 % (47-70); Platelet Count 240 K/mm3 (150-450); RBC Distribution Width CV 13.2 % (11.6-14.6); RBC Distribution Width SD 43.4 fl (35.1-43.9); Red Blood Count 4.14 M/mm3 (4.6-6.2); White Blood Count 7.1 K/mm3 (4.4-11.0)
[2020-11-05 16:15] LABS: POSITIVE COUNT NO; POSITIVE DIFFERENTIAL NO; POSITIVE MORPHOLOGY NO
--- NOTE | 2020-11-05 16:20 | RAD_ITS ---
STUDY: X-RAY - LEFT FOOT CLINICAL: Male, 80 years old. infection TECHNIQUE: 2 view(s) of the foot. COMPARISON: None. FINDINGS: Marked diffuse soft tissue swelling most severe in the toes and dorsum of the foot. Demineralized osseous structures. Otherwise normal calcaneus, talus and tarsals. Severely demineralized distal metatarsals. Otherwise normal appearance of the first and second metatarsals. Mild angular deformities of the distal third and fourth metatarsals. Deformity of the distal fifth metatarsal. Assessment of the metatarsophalangeal joints limited by dorsi flexion of the toes with foreshortening of the proximal phalanges and overlapping with their respective metatarsal heads. Normal tibial and fibular sesamoid bones. Degenerative narrowing in the interphalangeal joint of the great toe. Demineralized phalanges of the great toe. Grossly negative for osteolytic or blastic bone lesion. Second toe: Old fracture to perform any of the distal middle phalanx. Negative for osteolytic or blastic bone lesions. Degenerative joint narrowing of the interphalangeal joints. Third toe: Negative for osteolytic or blastic bone lesions. Degenerative narrowing of the interphalangeal joints. Fourth toe: Negative for osteolytic or blastic bone lesions. Degenerative narrowing of the interphalangeal joints. Grossly negative for osteolytic or blastic bone lesions of the fifth toe. Head of the fifth metatarsal obscured by overlapping fifth toe in dorsiflexion. RAD/Foot 2 Views IMPRESSION: Marked soft tissue swelling without emphysematous changes or foreign body. Probable old fracture deformities of the distal third and fourth metatarsals. Old fracture deformity of the distal end of the middle phalanx of the second toe. Probably a chronic deformity of the distal end of the fifth metatarsal but partly obscured by the overlapping fifth toe in dorsiflexion. Severely demineralized distal metatarsals and phalanges. Otherwise negative for osteolytic or blastic bone lesions. Electronically Signed: Libertad Rolon MD at 17:53 EDT , Service support ,
[2020-11-05 16:27] LABS: International Normalized Ratio 1.1; Prothrombin Time (Protime)PT. 13.9 SECONDS (11.7-14.9)
--- NOTE | 2020-11-05 16:32 | CM.ED ---
DAHLIA Note Referral Source: MD Referral Reason: Adult Protective Services Referral MD advised that he had seen patient and that patient's legs are swollen and patient has poor hygiene including wearing boot with human waste inside and securing wound bandages with electrical tape. MD said that patient is of sound mind but unable to care for self. advised that per neighbor that there is a smell from the house and previously patient would not allow [facility] into [facility]. MD reports concerns for patients welfare and thus Adult Protective Services (APS)referral is appropriate. DAHLIA called [facility] but office was closed. DAHLIA called Direct number to Leonardo at [facility] at [phone] but they were gone for the day. DAHLIA called [facility] Office and requested online marketer be notified. DAHLIA received call back from [facility] Office advising they do not have online marketer for APS anymore. DAHLIA will notify director of social services on inpatient unit about concerns that have been voiced regarding this patient and his welfare. Patient is currently safe as he is being admitted to inpatient unit. DAHLIA attempted to make report to [facility] however, APS is currently closed and unavailable. Madonna ZAVALA
[2020-11-05 16:41] LABS: ALB/GLOB Ratio 0.8 RATIO (0.9-2.4); AST(SGOT) 14 U/L (15-37); Alanine Aminotransfer ALT/SGPT 15 U/L (16-61); Albumin, Serum 3.4 g/dL (3.2-5.0); Alkaline Phosphatase 100 U/L (45-117); Anion Gap 7 (5-15); BUN 13 mg/dL (7-18); BUN/Creat Ratio 13.7 RATIO (10-20); Calcium,Total 8.9 mg/dL (8.5-10.1); Chloride 105 mmol/L (98-107); Creatinine, Serum 0.95 mg/dL (0.70-1.30); EST Glomerular Filtration Rate 82 mL/min (>60); Est Glom Filt Rate - Afr Amer 99 mL/min (>60); Globulin 4.3 g/dL (2.2-4.2); Glucose 89 mg/dL (74-106); Potassium 3.9 mmol/L (3.5-5.1); Protein, Total 7.7 g/dL (6.4-8.2); Sodium Level 139 mmol/L (136-145)
[2020-11-05 16:46] LABS: Lactic Acid 1.5 mmol/L (0.4-1.9)
[2020-11-05] MEDS: DiphenhydrAMINE 50 MG/ML Syringe 25 MG IV (17:25)
--- NOTE | 2020-11-05 17:34 | EKG12_ITS ---
Test Reason : UNRESPONSIVE Blood Pressure : / mmHG Vent. Rate : 086 BPM Atrial Rate : 086 BPM P-R Int : 174 ms QRS Dur : 084 ms QT Int : 416 ms P-R-T Axes : 033 -24 098 degrees QTc Int : 497 ms Normal sinus rhythm Inferior infarct , age undetermined Abnormal ECG Confirmed by JACK LAMBERT, FRANCISCA ([id number]), online content editor SIMBA ROLDAN ([id number]) on 11/09/2020 1:55:35 PM Referred By: JIM Confirmed By:FRANCISCA SANTIAGO MD
[2020-11-05] MEDS: 0.9% Normal Saline 1,000 ML 999 ML IV ×2 (17:35)
--- NOTE | 2020-11-05 17:43 | NURSING ---
[facility]AN[facility]AR[facility] TRANSFER LINE, CALLED. SHE WANTED CHART FAXED. DONE NO RAD REPORTS, NO DOCTOR DICTATION SHE WILL CALL BACK TO GET A ROOM NUMBER
--- NOTE | 2020-11-05 17:55 | ED.RN ---
Addendum entered by Donn Blanco 11/05/20 18:03: vancomycin stopped immediately when reaction was noted. Original Note: At 1720 patient began to have a reaction to the vancomycin. Pt stated he didnt feel well, felt like he was going to pass out. Pt became bright red from head to his waist. Dr Padgett called to bedside. Red man syndrome confirmed. Benadryl given per orders. Pt repeatedly saying he doesnt feel well and somethings not right at approx 1727 Pt's eyes rolled back in his head and became unresponsive. He was then bradycardic and hypotensive with a pulse. Dr Monae and Dr Foxyed at bedside. Pt's arms started to shake and patient was incontinent of urine and stool. Another IV established with 2 Liters IV boluses per Dr orders started at this time. Pt started talking but lethargic at 1737. Pt cleaned up and complete bed change done. RN takes patient down to CT per orders at 1758. Will continue to monitor.
--- NOTE | 2020-11-05 17:58 | CT_ITS ---
STUDY: CT BRAIN WITHOUT CONTRAST REASON FOR EXAM: Male, 80 years old. unresponsive RADIATION DOSAGE (If Supplied By Facility): CTDIvol = ( 44.99 ) mGy, DLP = ( 812.98 ) mGycm TECHNIQUE: Transaxial CT imaging of the brain was performed without administration of intravenous contrast material. Individualized dose optimization techniques were used for this CT. COMPARISON: No relevant priors. FINDINGS: Normal soft tissue structures. Normal calvarium. There is moderate cerebral atrophy with widening of the extra-axial spaces and ventricular dilatation. There are areas of decreased attenuation within the white matter tracts of the supratentorial brain, consistent with microvascular disease changes. There are small punctate calcifications of the basal ganglia which are seen in the aging brain as a normal variant. Normal brainstem. There is moderate cerebellar atrophy. Carotid and vertebral artery calcifications. There is no intracranial hemorrhage. There are no findings of an acute ischemic infarction. Normal visualized paranasal sinuses. CT/Brain/Head without Contrast IMPRESSION: No acute intracranial findings. Negative for hemorrhage, hematoma or extra axial fluid collection. Moderate generalized involutional changes. Electronically Signed: Libertad Rolon MD at 18:42 EDT , Service support ,
--- NOTE | 2020-11-05 18:50 | PCM.HP.STD ---
HPI - General General Date of Admission: 11/05/20 Date of Service: 11/05/20 Chief Complaint: leg wound HPI Narrative LISET MORENO, is a 80 M who presents brought to emergency room by neighbor. History obtained through the emergency room physician as patient had a syncopal episode and was confused afterwards. Patient had had lower extremity wounds for some time and had been established with the wound care and lymphedema clinic but has not been there for about a year. Patient did have some home health care workers come to his house at some point and he declined let them in. Patient eventually relented and came into the hospital. Patient had removal of his socks and some skin had come along with that. There is concern from the emergency room physician that the patient may have cellulitis and patient did receive vancomycin and Pipracil and/tazobactam. While he was receiving vancomycin patient did develop erythema. And at some point afterwards, patient had a syncopal episode. Patient had a large liquid bowel movement. He was hypotensive at 1 point and then blood pressure did improve mental status did improve as well but not to where he was prior to that spell. Patient can only tell me that he feels cold at this time. [facility] unable to obtain (Given confusion) Home Medications warfarin [Jantoven] 6 mg PO QODAY 06/12/14 [History Last Taken 03/13/15 09:00] aspirin 81 mg PO DAILY@0800 06/18/14 [History Last Taken 03/13/15 09:00] ferrous sulfate [Iron (ferrous sulfate)] 325 mg PO DAILY 07/27/16 [History Last Taken Unknown] clindamycin HCl 300 mg PO Q6H #40 cap 02/27/19 [Rx Last Taken Unknown] warfarin 3 mg PO QODAY 02/27/19 [History Last Taken Unknown] Allergy/AdvReac Type Severity Reaction Status Date / Time No Known Allergies Allergy Verified 11/05/20 15:12 unable to obtain (Given confusion) unable to obtain (Given confusion) Social History (Updated 11/05/20 @ 15:[address] Chester Padgett DO) Smoking Status: Never smoker substance use type: does not use ROS ROS Narrative Limited given confusion. Review of Systems ROS Unobtainable: due to encephalopathy Vital Signs Vital Signs Vital Signs: 11/05/20 15:14 11/05/20 15:16 11/05/20 16:16 Temperature 36.6 C 36.9 C 36.8 C Temperature Source Temporal Oral Oral Pulse Rate 91 73 80 Respiratory Rate 17 19 H 23 H Blood Pressure 138/76 H 134/67 H 140/84 H Blood Pressure Mean 96 89 102 Pulse Ox 96 98 96 Oxygen Delivery Method Room Air Room Air Room Air Oxygen Flow Rate (L/min) 11/05/20 17:00 11/05/20 17:19 11/05/20 17:30 Temperature 37.0 C Temperature Source Oral Pulse Rate 89 92 101 H Respiratory Rate 24 H 23 H 21 H Blood Pressure 161/78 H 161/78 H 58/42 L Blood Pressure Mean 105 105 47 Pulse Ox 97 95 81 Oxygen Delivery Method Room Air Room Air Room Air Oxygen Flow Rate (L/min) 11/05/20 17:31 11/05/20 17:35 11/05/20 17:38 Temperature Temperature Source Pulse Rate 101 H 91 85 Respiratory Rate 21 H 18 24 H Blood Pressure 67/54 L 83/65 L 95/72 Blood Pressure Mean 58 71 79 Pulse Ox 89 98 100 Oxygen Delivery Method Non-Rebreather Non-Rebreather Non-Rebreather Oxygen Flow Rate (L/min) 15 15 15 11/05/20 17:40 11/05/20 18:00 Temperature 36.6 C Temperature Source Oral Pulse Rate 86 84 Respiratory Rate 28 H 24 H Blood Pressure 103/74 122/70 H Blood Pressure Mean 83 87 Pulse Ox 100 96 Oxygen Delivery Method Non-Rebreather Non-Rebreather Oxygen Flow Rate (L/min) 15 15 Weight Weight: 99 kg Body Mass Index (BMI) 31.3 Physical Exam Narrative Malodorous. Disheveled. Const Orientation / Consciousness: confused and disoriented HEENT normocephalic Eyes Eyes Narrative: No scleral icterus. Resp normal respiratory effort and no use of accessory muscles Cardio regular rate, regular rhythm, S1 normal heart sound and S2 normal heart sound GI normal to inspection, nondistended, normoactive bowel sounds, non-tender and non-distended Extremity normal to inspection Skin Skin Narrative: Venous stasis dermatitis of lower extremities. Lichenification of the lower extremities. 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 Neuro Neuro Narrative: Peers move all extremities spontaneously but patient cannot follow an adequate neurologic exam given his confusion. Results Lab / Micro Data Attestation: I reviewed the patient's lab results. Result Diagrams: 11/05/20 15:50 11/05/20 15:50 Labs: Laboratory Results - last 24 hr 11/05/20 11/05/20 11/05/20 15:50 15:50 15:50 WBC 7.1 RBC 4.14 L Hgb 12.1 L Hct 37.4 L MCV 90.3 MCH 29.2 MCHC 32.4 RDW Std Deviation 43.4 RDW Coeff of Regi 13.2 Plt Count 240 MPV 8.5 Immature Gran % (Auto) 0.400 Neut % (Auto) 68.9 Lymph % (Auto) 17.4 L [place] % (Auto) 9.9 Eos % (Auto) 3.0 Baso % (Auto) 0.4 Absolute Neuts (auto) 4.9 Absolute Lymphs (auto) 1.23 Nucleated RBC % 0 PT 13.9 INR 1.1 APTT 25.0 Sodium 139 Potassium 3.9 Chloride 105 Carbon Dioxide 27.0 Anion Gap 7 BUN 13 Creatinine 0.95 Estim Creat Clear Calc 65.10 Est GFR (MDRD) Af Amer 99 Est GFR (MDRD) Non-Af 82 BUN/Creatinine Ratio 13.7 Glucose 89 Lactic Acid Calcium 8.9 Total Bilirubin 0.90 AST 14 L ALT 15 L Alkaline Phosphatase 100 Total Protein 7.7 Albumin 3.4 Globulin 4.3 H Albumin/Globulin Ratio 0.8 L 11/05/20 15:50 WBC RBC Hgb Hct MCV MCH MCHC RDW Std Deviation RDW Coeff of Regi Plt Count MPV Immature Gran % (Auto) Neut % (Auto) Lymph % (Auto) [place] % (Auto) Eos % (Auto) Baso % (Auto) Absolute Neuts (auto) Absolute Lymphs (auto) Nucleated RBC % PT INR APTT Sodium Potassium Chloride Carbon Dioxide Anion Gap BUN Creatinine Estim Creat Clear Calc Est GFR (MDRD) Af Amer Est GFR (MDRD) Non-Af BUN/Creatinine Ratio Glucose Lactic Acid 1.5 Calcium Total Bilirubin AST ALT Alkaline Phosphatase Total Protein Albumin Globulin Albumin/Globulin Ratio Radiology Impression Tibia/Fibula X-Ray 11/05/20 15:46 IMPRESSION: Negative for osteolytic bone lesion, fracture or dislocation. Mild periosteal thickening of the tibia likely reactive secondary to chronic soft tissue/vascular changes. Small vessel calcification. Electronically Signed: Libertad Rolon MD at 18:03 EDT , Service support , Foot X-Ray 11/05/20 15:51 IMPRESSION: Mild soft tissue swelling more notably distal foot and toes with about emphysematous changes or foreign body. Unremarkable proximal and mid foot. Demineralized distal foot and phalanges. Limited visibility particularly of the metatarsophalangeal joints and proximal phalange ease at multiple levels as described above secondary to dorsiflexion. Probably a chronic deformity of the fourth and fifth toes. Old fracture of the distal end of the middle phalanx of the third toe. Grossly negative for osteolytic or blastic bone lesions. Electronically Signed: Libertad Rolon MD at 18:00 EDT , Service support , Tibia/Fibula X-Ray 11/05/20 15:51 IMPRESSION: Soft tissue swelling with venous phleboliths and arterial calcification. Negative for osteolytic or blastic bone lesion. Demineralized osseous structures. Electronically Signed: Libertad Rolon MD at 18:04 EDT , Service support , Foot X-Ray 11/05/20 16:20 IMPRESSION: Marked soft tissue swelling without emphysematous changes or foreign body. Probable old fracture deformities of the distal third and fourth metatarsals. Old fracture deformity of the distal end of the middle phalanx of the second toe. Probably a chronic deformity of the distal end of the fifth metatarsal but partly obscured by the overlapping fifth toe in dorsiflexion. Severely demineralized distal metatarsals and phalanges. Otherwise negative for osteolytic or blastic bone lesions. Electronically Signed: Libertad Rolon MD at 17:53 EDT , Service support , Brain CT 11/05/20 17:58 IMPRESSION: No acute intracranial findings. Negative for hemorrhage, hematoma or extra axial fluid collection. Moderate generalized involutional changes. 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 metabolic encephalopathy Occurred after the patient's vagal event. Patient still very globally confused at this time and may be related with transient hypotension that he had experienced Nonetheless, will perform stroke work-up with an echocardiogram, MRI of the brain, MRA of the head and neck PT, OT speech therapy. N.p.o. until formal speech evaluation can be completed. Will give the patient a dose of rectal aspirin. 2. Syncope Sounds vasovagal as patient was having a large bowel movement at the time Neurologic work-up as above 3. Leg wounds Patient simply not caring for himself and not following up with wound care or lymphedema. No obvious evidence of cellulitis at this time though his legs are profoundly poorly cared for Consult wound care for further recommendations and management Patient did receive vancomycin and Pipracil/tazobactam in the emergency room. Given the fact I do not feel that his legs, at this time, or acutely infected I will not continue with any additional antibiotics. 4. History of DVT INR is subtherapeutic at 1.1 Patient did have duplexes performed in August and April 2017 and were negative for DVTs at that time Will recheck duplex of the patient's lower extremities. If negative for DVT, I would recommend discontinuation of warfarin as it would be high risk medication for patient that is clearly demonstrated that he cannot reliably care for himself. If negative: Discontinue warfarin If positive: Continue with warfarin and add therapeutic dosing of enoxaparin. Reviewed documentation, patient was on warfarin release back in 2014. Cannot determine based on the [place] (by [facility]) documentation as to when he was started on warfarin. 5. VTE prophylaxis Enoxaparin Charges/Coding Visit Charges Inpatient E&M: 57017 Init Hosp L3
[2020-11-05 19:15] LABS: Lactic Acid 2.4 mmol/L (0.4-1.9)
--- NOTE | 2020-11-05 19:27 | US_ITS ---
STUDY: VENOUS DOPPLER ULTRASOUND - BILATERAL LOWER EXTREMITIES REASON FOR EXAM: Male, 80 years old. BILAT LEG WOUNDS TECHNIQUE: Ultrasound evaluation of the deep vein system to include cota-scale imaging and compression was performed. Cota-scale imaging and Doppler sonographic evaluation, including duplex spectral analysis and qualitative color flow sonography, was performed. COMPARISON: None. FINDINGS: Limited secondary to the large open bilateral leg wounds RIGHT LEG Common Femoral Vein: Normal compression, spontaneity augmentation and color flow. Common Femoral Vein/Greater Saphenous Junction: Normal compression. Deep Femoral Vein: Not visualized Femoral Proximal: Normal compression. Femoral Middle: Normal compression, spontaneity and augmentation. Normal color Doppler. Femoral Distal: Normal compression. Popliteal Vein: Limited. Posterior Tibial Vein: Not visualized Peroneal Vein: Not visualized LEFT LEG Common Femoral Vein: Normal compression, spontaneity and augmentation. Normal color Doppler. Common Femoral Vein/Greater Saphenous Junction: Normal compression. Deep Femoral Vein: Not visualized Femoral Proximal: Normal compression Femoral Middle: Normal compression, spontaneity and augmentation. Normal color Doppler. Femoral Distal: Normal compression Popliteal Vein: Limited Posterior Tibial Vein: Not visualized Peroneal Vein: Not visualized US/Venous Duplex Imag/Darwin Extrem IMPRESSION: Limited exam secondary to large body habitus and overlying wounds. Grossly negative for DVT. Electronically Signed: Libertad Rolon MD at 22:21 EDT , Service support ,
[2020-11-05 20:10] LABS: Bedside Glucose 119 mg/dL (70-110)
--- NOTE | 2020-11-05 20:31 | ECHOD_ITS ---
Reason For Study: TIA/CVA Procedure This was a 2D Doppler, Color Flow transthoracic echocardiogram. The study was technically difficult. PT was unable to lie still for exam due to right hand pain. Exam performed portable in patient room. Left Ventricle Normal left ventricle. The estimated ejection fraction is EF calculated 68% %. Right Ventricle Normal right ventricle. Normal systolic function. Atria The left atrium is mildly enlarged. Normal right atrium. Mitral Valve The mitral valve is structurally normal. No prolapse or stenosis seen. Tricuspid Valve Normal tricuspid valve. Aortic Valve Aortic sclerosis, no stenosis. Pulmonic Valve The pulmonic valve is not well visualized. Great Vessels Normal aortic root. Pericardium/Pleural No pericardial effusion. Medication Performed a rapid injection of agitated mix of 9 cc saline and 1cc air to assess for atrial septal defect. MMode/2D Measurements & Calculations LVIDd: 4.8 cm IVSd: 1.3 cm LVOT diam: 2.3 cm LVIDs: 3.7 cm LVPWd: 1.2 cm RVDd: 2.5 cm FS: 23.4 % LVOT area: 4.1 cm2 Ao root diam: 2.9 cm LAV(MOD-bp): 61.5 ml LA A4 area: 20.4 cm2 LAV(MOD-bp) Indexed: 28.4 ml/m2 LAV(MOD-sp2): 52.4 ml LAV(MOD-sp4): 55.4 ml LA dimension(2D): 3.7 cm RA A4 area: 10.2 cm2 Doppler Measurements & Calculations MV E max bulmaro: 61.0 cm/sec Lat Peak E' Bulmaro: 12.9 cm/sec Med Peak E' Bulmaro: 9.5 cm/sec MV A max bulmaro: 75.9 cm/sec E/E' lat: 4.7 E/E' med: 6.4 MV E/A: 0.80 Ao V2 max: 235.3 cm/sec LV V1 max: 124.2 cm/sec SV(LVOT): 91.7 ml Ao max P.2 mmHg LV V1 max P.2 mmHg Ao V2 mean: 146.0 cm/sec LV V1 mean P.3 mmHg Ao mean P.7 mmHg LV V1 mean: 86.8 cm/sec Ao V2 VTI: 40.8 cm LV V1 VTI: 22.4 cm EH(I,D): 2.2 cm2 EH(V,D): 2.2 cm2 PA V2 max: 99.5 cm/sec TR max bulmaro: 307.8 cm/sec TR max P.9 mmHg ECHO/Echo Complete Interpretation Summary The estimated ejection fraction is EF calculated 68% %. Normal LV systolic function Ordering Physician: Kendall Coronel Referring Physician: [facility] Performed By: Mckenzie Tyson, GAYLE, RVT
[2020-11-05] MEDS: 0.9% Normal Saline 1,000 ML 150 ML IV (21:58)
[2020-11-05 22:47] LABS: Reflex Lactate? Y
[2020-11-05] MEDS: Aspirin 300 MG Suppository RC (22:52)
[2020-11-05 23:35] LABS: Lactic Acid 2.4 mmol/L (0.4-1.9)
[2020-11-06] VITALS (11 sets, daily range): BP systolic 112–124; BP diastolic 50–63; PULSE 72–85; RESP 12–17; TEMP 36.4–37; O2SAT 91–100; BMI 30.7
[2020-11-06 06:16] LABS: Absolute Lymphocyte Count 0.45 X10^3/uL (0.83-4.51); Basophil# 0.04 X10^3/uL; Basophil% 0.2 % (0-1); Eosinophil# 1.24 X10^3/uL; Eosinophils% 5.4 % (0-5); Hematocrit 39.8 % (40-54); Hemoglobin 12.8 g/dL (13.0-16.5); Lymphocyte # 0.45 X10^3/ul (0.83-4.51); Mean Corp Hgb Conc 32.2 g/dL (32-36); Mean Corpuscular Hgb 29.5 pg (27.0-32.0); Mean Corpuscular Volume 91.7 fL (80-94); Mean Platelet Vol. 8.6 fl (6.2-12.0); Monocyte# 0.96 X10^3/uL; Monocyte% 4.2 % (0-10); NRBC Flagged by Analyzer 0 % (0-5); Neutrophil # 20.02 X10^3/uL (2.7-7.7); Neutrophil % 86.6 % (47-70); POSITIVE DIFFERENTIAL YES; POSITIVE MORPHOLOGY YES; Platelet Count 200 K/mm3 (150-450); RBC Distribution Width CV 13.4 % (11.6-14.6); RBC Distribution Width SD 45.3 fl (35.1-43.9); Red Blood Count 4.34 M/mm3 (4.6-6.2); White Blood Count 23.1 K/mm3 (4.4-11.0)
[2020-11-06 06:19] LABS: Differential Indicated SCAN CRITERIA MET
[2020-11-06 06:45] LABS: Anion Gap 5 (5-15); BUN 13 mg/dL (7-18); BUN/Creat Ratio 12.7 RATIO (10-20); Calcium,Total 8.1 mg/dL (8.5-10.1); Chloride 111 mmol/L (98-107); Cholesterol 90 mg/dL (200); Creatinine, Serum 1.02 mg/dL (0.70-1.30); EST Glomerular Filtration Rate 75 mL/min (>60); Est Glom Filt Rate - Afr Amer 91 mL/min (>60); Estimated Creatinine Clearance 60.63 ml/min; Glucose 117 mg/dL (74-106); High Density Lipoprotein 43 mg/dL; Potassium 3.7 mmol/L (3.5-5.1); Sodium Level 140 mmol/L (136-145); Triglycerides 51 mg/dL; Very Low Density Lipoprotein 10 mg/dL (5-40)
[2020-11-06 06:56] LABS: Differential Comment SCANNED
--- NOTE | 2020-11-06 09:28 | NURSING ---
NIHSS and VS late due to ECHO being preformed on pt in room.
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
--- NOTE | 2020-11-06 11:06 | CASEMGMT ---
DAHLIA called Leonardo at [facility] and left her a voice mail requesting a return call. DAHLIA also called Loi the [facility] DAHLIA and left her a message requesting a return call. Sherry PEDERSEN
--- NOTE | 2020-11-06 11:16 | CASEMGMT ---
DAHLIA spoke with Leonardo at [facility]. DAHLIA made referral regarding concerns with patient's living conditions and how he presented to the ED. She asked that DAHLIA let her know when [facility] finds out which [facility] and when he is ready for discharge. Sherry Saavedra MARINE ELECTRICIAN APPRENTICE [facility]
--- NOTE | 2020-11-06 12:00 | MRI_ITS ---
STUDY: MRA OF THE HEAD WITHOUT CONTRAST REASON FOR EXAM: Male, 80 years old. Encephalopathy TECHNIQUE: 3-D kyae-sz-kroauj (TOF) imaging was performed with MIPs. The study was performed unenhanced. COMPARISON: None. FINDINGS: Normal bilateral petrous carotid arteries. Normal right cavernous carotid artery with a normal supraclinoid bifurcation. Normal left cavernous carotid artery with a normal supraclinoid bifurcation. Normal right A1 segments of the anterior cerebral artery. Normal left A1 segments of the anterior cerebral artery. Normal intact anterior communicating artery (ACOM). Normal bilateral A2 segments of the anterior cerebral arteries. Normal right M1 and M2 segments of the middle cerebral arteries, with a normal M1 bifurcation. Normal left M1 and M2 segments of the middle cerebral arteries, with a normal M1 bifurcation. Normal right posterior communicating artery (PCOM). Normal left posterior communicating artery (PCOM). There is a small atretic right vertebral artery with a dominant left vertebral artery. Normal basilar artery with a normal basilar bifurcation. The visualized bilateral superior cerebellar (SCA) arteries are normal. Normal bilateral P1 and P2 segments of the posterior cerebral arteries.. There is mild narrowing of the right P3 segments. There is no demonstrated aneurysm of the [place] of [place]. There is no major vessel occlusion or hemodynamically significant stenosis. There is no demonstrated abnormality of the visualized brain. MRI/MRA Head ONLY without Contrast IMPRESSION: No aneurysm or large vessel occlusion. Mild narrowing of right posterior cerebral artery peripheral branches. Electronically Signed: North Millan MD at 15:48 EDT , Service support ,
--- NOTE | 2020-11-06 12:00 | MRI_ITS ---
STUDY: MRI BRAIN WITHOUT CONTRAST REASON FOR EXAM: Male, 80 years old. Encephalopathy TECHNIQUE: Standardized multiplanar fat and water weighted pulse sequences were obtained. COMPARISON: CT November 05, 2020 FINDINGS: There is moderate cerebral atrophy with widening of the extra-axial spaces and ventricular dilatation. There are multiple white matter hyperintensities, distributed throughout the deep white matter tracts of the cerebral hemispheres, consistent with moderate chronic white matter ischemic changes. There is no evidence for recent intracranial ischemia or other cause of cytotoxic edema on diffusion weighted imaging (DWI). There is no evidence for recent intracranial ischemia or other cause of cytotoxic edema on diffusion weighted imaging (DWI). Normal bilateral basal ganglia. Normal thalami. There is no extra-axial fluid accumulation. Normal flow voids within the major intracranial circulation suggesting patency by spin echo criteria. Normal sella turcica, pituitary gland, infundibular stalk, optic chiasm and hypothalamus. Normal tectal plate and pineal gland. Normal midbrain, eli and medulla. Normal cerebellum. Normal basal cisterns. Normal bilateral temporal bones. Normal bilateral internal auditory canals. No demonstrated orbital abnormality, within the constraints of a routine brain study. Normal visualized paranasal sinuses. Normal calvarium and skull base. Normal visualized soft tissue structures. Normal visualized upper cervical spine. MRI/Brain without Contrast IMPRESSION: Involutional changes of the brain, as described above. Electronically Signed: North Millan MD at 15:40 EDT , Service support ,
--- NOTE | 2020-11-06 12:36 | PN.HOSP_ITS ---
Documented by User: Dinh STEVENS 11/06/20 12:49 Subjective Subjective Patient is a 80-year-old male comfortably resting in bed, alert and oriented x2 (person and place). It is difficult to assess patient condition and mentation as his speech is often tangential. Seems to have some insight into his medical history. Denies chest pain, shortness of breath, palpitations, hemoptysis, sputum production, fever, chills, N/V/D. Objective Data Objective Data Vital Signs: Vital Signs Temp Pulse Resp BP Pulse Ox 98.6 F 84 17 119/62 94 11/06/20 09:10 11/06/20 09:10 11/06/20 09:10 11/06/20 09:10 11/06/20 09:10 Oxygen Flow Rate (L/min) 2 Oxygen Delivery Method Room Air Weight: 214 lb 8.156 oz Body Mass Index (BMI) 30.7 Intake & Output: Intake and Output for Last 24 Hours 11/04/20 11/05/20 11/06/20 23:59 23:59 23:59 Intake Total 2394.17 / 2394.17 697.5 / 697.5 Balance 2394.17 / 2394.17 697.5 / 697.5 Lab / Micro Data Result Diagrams: 11/07/20 05:56 11/07/20 05:56 Labs: Laboratory Results - last 24 hr 11/05/20 11/05/20 11/05/20 15:50 15:50 15:50 WBC 7.1 RBC 4.14 L Hgb 12.1 L Hct 37.4 L MCV 90.3 MCH 29.2 MCHC 32.4 RDW Std Deviation 43.4 RDW Coeff of Regi 13.2 Plt Count 240 MPV 8.5 Immature Gran % (Auto) 0.400 Neut % (Auto) 68.9 Lymph % (Auto) 17.4 L [place] % (Auto) 9.9 Eos % (Auto) 3.0 Baso % (Auto) 0.4 Absolute Neuts (auto) 4.9 Absolute Lymphs (auto) 1.23 Nucleated RBC % 0 Differential Comment PT 13.9 INR 1.1 APTT 25.0 Sodium 139 Potassium 3.9 Chloride 105 Carbon Dioxide 27.0 Anion Gap 7 BUN 13 Creatinine 0.95 Estim Creat Clear Calc 65.10 Est GFR (MDRD) Af Amer 99 Est GFR (MDRD) Non-Af 82 BUN/Creatinine Ratio 13.7 Glucose 89 Lactic Acid Calcium 8.9 Total Bilirubin 0.90 AST 14 L ALT 15 L Alkaline Phosphatase 100 Troponin I Total Protein 7.7 Albumin 3.4 Globulin 4.3 H Albumin/Globulin Ratio 0.8 L Triglycerides Cholesterol LDL Cholesterol VLDL Cholesterol HDL Cholesterol POC Glucose 11/05/20 11/05/20 11/05/20 15:50 15:50 17:29 WBC RBC Hgb Hct MCV MCH MCHC RDW Std Deviation RDW Coeff of Regi Plt Count MPV Immature Gran % (Auto) Neut % (Auto) Lymph % (Auto) [place] % (Auto) Eos % (Auto) Baso % (Auto) Absolute Neuts (auto) Absolute Lymphs (auto) Nucleated RBC % Differential Comment PT INR APTT Sodium Potassium Chloride Carbon Dioxide Anion Gap BUN Creatinine Estim Creat Clear Calc Est GFR (MDRD) Af Amer Est GFR (MDRD) Non-Af BUN/Creatinine Ratio Glucose Lactic Acid 1.5 Calcium Total Bilirubin AST ALT Alkaline Phosphatase Troponin I < 0.015 Total Protein Albumin Globulin Albumin/Globulin Ratio Triglycerides Cholesterol LDL Cholesterol VLDL Cholesterol HDL Cholesterol POC Glucose 119 H 11/05/20 11/05/20 11/06/20 18:45 22:50 05:50 WBC 23.1 H RBC 4.34 L Hgb 12.8 L Hct 39.8 L MCV 91.7 MCH 29.5 MCHC 32.2 RDW Std Deviation 45.3 H RDW Coeff of Regi 13.4 Plt Count 200 MPV 8.6 Immature Gran % (Auto) 1.600 H Neut % (Auto) 86.6 H Lymph % (Auto) 2.0 L [place] % (Auto) 4.2 Eos % (Auto) 5.4 H Baso % (Auto) 0.2 Absolute Neuts (auto) 20.0 H Absolute Lymphs (auto) 0.45 L Nucleated RBC % 0 Differential Comment SCANNED PT INR APTT Sodium Potassium Chloride Carbon Dioxide Anion Gap BUN Creatinine Estim Creat Clear Calc Est GFR (MDRD) Af Amer Est GFR (MDRD) Non-Af BUN/Creatinine Ratio Glucose Lactic Acid 2.4 H* 2.4 H* Calcium Total Bilirubin AST ALT Alkaline Phosphatase Troponin I Total Protein Albumin Globulin Albumin/Globulin Ratio Triglycerides Cholesterol LDL Cholesterol VLDL Cholesterol HDL Cholesterol POC Glucose 11/06/20 05:50 WBC RBC Hgb Hct MCV MCH MCHC RDW Std Deviation RDW Coeff of Regi Plt Count MPV Immature Gran % (Auto) Neut % (Auto) Lymph % (Auto) [place] % (Auto) Eos % (Auto) Baso % (Auto) Absolute Neuts (auto) Absolute Lymphs (auto) Nucleated RBC % Differential Comment PT INR APTT Sodium 140 Potassium 3.7 Chloride 111 H Carbon Dioxide 24.0 Anion Gap 5 BUN 13 Creatinine 1.02 Estim Creat Clear Calc 60.63 Est GFR (MDRD) Af Amer 91 Est GFR (MDRD) Non-Af 75 BUN/Creatinine Ratio 12.7 Glucose 117 H Lactic Acid Calcium 8.1 L Total Bilirubin AST ALT Alkaline Phosphatase Troponin I Total Protein Albumin Globulin Albumin/Globulin Ratio Triglycerides 51 Cholesterol 90 LDL Cholesterol 37 VLDL Cholesterol 10 HDL Cholesterol 43 POC Glucose Micro: Microbiology 11/05/20 16:00 Wound - Left Foot Wound Culture - Preliminary Mixed Gram Pos & Gram Neg Org Radiography Diagnostic Testing: Radiology Impression Tibia/Fibula X-Ray 11/05/20 15:46 IMPRESSION: Negative for osteolytic bone lesion, fracture or dislocation. Mild periosteal thickening of the tibia likely reactive secondary to chronic soft tissue/vascular changes. Small vessel calcification. Electronically Signed: Libertad Rolon MD at 18:03 EDT , Service support , Foot X-Ray 11/05/20 15:51 IMPRESSION: Mild soft tissue swelling more notably distal foot and toes with about emphysematous changes or foreign body. Unremarkable proximal and mid foot. Demineralized distal foot and phalanges. Limited visibility particularly of the metatarsophalangeal joints and proximal phalange ease at multiple levels as described above secondary to dorsiflexion. Probably a chronic deformity of the fourth and fifth toes. Old fracture of the distal end of the middle phalanx of the third toe. Grossly negative for osteolytic or blastic bone lesions. Electronically Signed: Libertad Rolon MD at 18:00 EDT , Service support , Tibia/Fibula X-Ray 11/05/20 15:51 IMPRESSION: Soft tissue swelling with venous phleboliths and arterial calcification. Negative for osteolytic or blastic bone lesion. Demineralized osseous structures. Electronically Signed: Libertad Rolon MD at 18:04 EDT , Service support , Foot X-Ray 11/05/20 16:20 IMPRESSION: Marked soft tissue swelling without emphysematous changes or foreign body. Probable old fracture deformities of the distal third and fourth metatarsals. Old fracture deformity of the distal end of the middle phalanx of the second toe. Probably a chronic deformity of the distal end of the fifth metatarsal but partly obscured by the overlapping fifth toe in dorsiflexion. Severely demineralized distal metatarsals and phalanges. Otherwise negative for osteolytic or blastic bone lesions. Electronically Signed: Libertad Rolon MD at 17:53 EDT , Service support , Brain CT 11/05/20 17:58 IMPRESSION: No acute intracranial findings. Negative for hemorrhage, hematoma or extra axial fluid collection. Moderate generalized involutional changes. Electronically Signed: Libertad Rolon MD at 18:42 EDT , Service support , Venous Duplex 11/05/20 19:27 IMPRESSION: Limited exam secondary to large body habitus and overlying wounds. Grossly negative for DVT. Electronically Signed: Libertad Rolon MD at 22:21 EDT , Service support , Echocardiogram 11/05/20 20:31 Interpretation Summary The estimated ejection fraction is EF calculated 68% %. Normal LV systolic function Ordering Physician: Kendall Coronel Referring Physician: [facility] Performed By: Mckenzie Tyson, GAYLE, RVT Physical Exam Const alert and no apparent distress Orientation / Consciousness: confused HEENT head/scalp atraumatic and moist oral mucous membranes Head and Scalp: normocephalic Eyes PERRL, EOMs intact bilaterally and conjunctivae normal Neck no lymphadenopathy, supple and no JVD Resp normal respiratory effort, no retractions, no use of accessory muscles and clear to auscultation bilaterally Cardio regular rate, regular rhythm, no murmurs and no JVD GI normal to inspection, nondistended, normoactive bowel sounds, soft to palpation, non-tender and non-distended Extremity Extremity Narrative: Bhanu wraps around the lower extremities bilaterally. 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 Case management/social work consulted and working with [facility] Services to develop a plan for discharge, as patient does not properly take care of himself. 1) Metabolic encephalopathy Occurred after an episode of vasovagal sympathy in the ED. Patient alert and oriented to person and place and able to provide history into medical conditions, although speech is tangential. Plan; PT/OT eval ordered, speech therapy eval ordered. 2) Syncope Likely vasovagal event witnessed in the ED. Echocardiogram on 11/06 demonstrated a normal LV systolic function and an estimated EF of 68%. Brain CT demonstrated no acute ischemia or infarction. Brain MRI and head MRI pending. Plan; continue to monitor. 3) Leg wounds On my examination extremities were wrapped in bandages bilaterally, per wound care. Likely related to poor self-care for lymphedema. Antibiotics on hold due to wounds not appearing acutely infected. Plan; continue to monitor. 4) history of DVT Venous duplex ultrasound demonstrated no evidence of DVT. Home warfarin discontinued, Lovenox initiated. INR 1.1. Plan; continue Lovenox. Patient seen by Dinh Garay PA-C, under the supervision of Dr. Montero. Documented by User: Dr. Hattie Montero MD 11/07/20 07:50 Objective Data Lab / Micro Data Result Diagrams: 11/07/20 05:56 11/07/20 05:56 Charges/Coding Addendum Addendum: This patient was seen in conjunction with HILDA Jimenez. I have independently interviewed and examined the patient and reviewed pertinent historical, laboratory, and other data. Please refer to HILDA Jimenez's note for his patient's presentation, findings, and recommendations. I have reviewed and his note and concur with his documentation Patient was seen and examined. He is alert oriented to self but not to place or time. No acute events overnight. MRI brain is pending. Physical Exam: Gen: Comfortable, not pale, not jaundiced CVS:HS I +II, regular, no murmurs RESP: CTA GI: BS present and normal, soft, nontender, no palpable organs EXT:No edema ASSESSMENT: 1. Syncope 2. Possible seizure activity 3. Acute metabolic encephalopathy 4. Chronic leg wounds, lymphedema Plan: Follow-up on MRI of the brain, wound RN consult Continue to monitor Visit Charges Inpatient E&M: 74217 Subs Hosp L2
--- NOTE | 2020-11-06 13:05 | NURSING ---
wound photo: left lower leg
--- NOTE | 2020-11-06 13:06 | NURSING ---
skin photo: left lower leg (lateral view)
--- NOTE | 2020-11-06 13:06 | NURSING ---
skin photo: right lower leg
[2020-11-06 13:16] LABS: M R Staph aureus DNA By PCR Negative (Negative); Probe Check PASS; Specimen Processing Control PASS; Staph aureus DNA By PCR NEGATIVE (Negative)
--- NOTE | 2020-11-06 14:20 | CASEMGMT ---
Addendum entered by Sherry Saavedra 11/06/20 15:08: [facility] patient is only 20% service connected so [facility] would not be [facility]. Patient has Medicare so that should not be a problem. Sherry PEDERSEN Original Note: DAHLIA spoke with Gregory the Crm System Administrator from [facility]. She said patient has a lot of no shows for his appointments. She said he was set up with their home based primary care team. Those are the 2 nurses that went out to see him on October 27 that he would not let in. She said the neighbor called the [facility] and let them know that he had an odor from his legs. That is what prompted those nurses to go out to his home. She asked that SW keep her updated. DAHLIA called Leonardo at [facility] back and left her a voice mail letting her know Gregory is patient's Crm System Administrator [facility] in [place]. Sherry PEDERSEN
--- NOTE | 2020-11-06 15:43 | CASEMGMT ---
DAHLIA reviewed therapy notes. DAHLIA met with patient again and went over going to a longterm short term at discharge. He said he doesn't think he wants to do that. DAHLIA told him SW will leave the list of nursing homes with him so he has it and he can look over it. DAHLIA told him it would be short term and then when he is stronger he would go home. He said he would want that in writing. He said once he gets there they will tell him that he is staying and they will get his check. DAHLIA told him they cannot make him stay. He said he will look at the list, but he cannot promise anything. Sherry PEDERSEN
[2020-11-06] MEDS: Ferrous Sulfate 325 MG Tablet PO (16:00)
[2020-11-06] MEDS: Aspirin 81 MG TAB.CHEW PO (16:01)
[2020-11-06] MEDS: Enoxaparin 40 MG/0.4 ML Syringe SC (16:01)
[2020-11-07] VITALS (11 sets, daily range): BP systolic 116–149; BP diastolic 52–73; PULSE 60–84; RESP 16–18; TEMP 35.9–36.8; O2SAT 95–100
[2020-11-07] MEDS: Acetaminophen 325 MG Tablet 650 MG PO (01:45)
[2020-11-07 06:41] LABS: Absolute Lymphocyte Count 1.76 X10^3/uL (0.83-4.51); Absolute Neutrophil Count 12.9 X10^3/uL (2.0-7.7); Basophil# 0.04 X10^3/uL; Basophil% 0.2 % (0-1); Eosinophil# 0.42 X10^3/uL; Eosinophils% 2.6 % (0-5); Hematocrit 31.5 % (40-54); Hemoglobin 10.2 g/dL (13.0-16.5); Lymphocyte # 1.76 X10^3/ul (0.83-4.51); Lymphocyte % 10.8 % (19-41); Mean Corp Hgb Conc 32.4 g/dL (32-36); Mean Corpuscular Hgb 29.2 pg (27.0-32.0); Mean Corpuscular Volume 90.3 fL (80-94); Mean Platelet Vol. 8.9 fl (6.2-12.0); Monocyte# 1.02 X10^3/uL; Monocyte% 6.3 % (0-10); NRBC Flagged by Analyzer 0 % (0-5); Neutrophil % 79.2 % (47-70); Platelet Count 154 K/mm3 (150-450); RBC Distribution Width CV 13.7 % (11.6-14.6); RBC Distribution Width SD 45.1 fl (35.1-43.9); Red Blood Count 3.49 M/mm3 (4.6-6.2); White Blood Count 16.3 K/mm3 (4.4-11.0)
[2020-11-07 07:08] LABS: Anion Gap 4 (5-15); BUN 18 mg/dL (7-18); BUN/Creat Ratio 23.1 RATIO (10-20); Calcium,Total 8.3 mg/dL (8.5-10.1); Chloride 108 mmol/L (98-107); Creatinine, Serum 0.78 mg/dL (0.70-1.30); EST Glomerular Filtration Rate 102 mL/min (>60); Est Glom Filt Rate - Afr Amer 124 mL/min (>60); Estimated Creatinine Clearance 61.85 ml/min; Glucose 81 mg/dL (74-106); Potassium 3.7 mmol/L (3.5-5.1); Sodium Level 138 mmol/L (136-145)
[2020-11-07] MEDS: Aspirin 81 MG TAB.CHEW PO (09:10)
[2020-11-07] MEDS: Ferrous Sulfate 325 MG Tablet PO (09:10)
[2020-11-07] MEDS: Enoxaparin 40 MG/0.4 ML Syringe SC (09:10)
[2020-11-07] MEDS: 0.9% Saline Lock 10 ML Syringe IV ×2 (09:10→14:27)
--- NOTE | 2020-11-07 10:24 | TELEMED_ITS ---
[facility] has confirmed receipt of a request for visit. This document confirms receipt of the order initiating the consult. To find the results of the consultation, please view the patient's reports for the scanned Telemed Consult.
--- NOTE | 2020-11-07 13:16 | PCM.PN.HOSP ---
Documented by User: Dinh STEVENS 11/07/20 13:30 Subjective Subjective Patient is a 80-year-old male comfortably resting in bed, alert and orient x3. She reports no change or progression of symptoms from yesterday. Denies chest pain, shortness of breath, palpitations, hemoptysis, fever, chills, N/V/D. Objective Data Objective Data Vital Signs: Vital Signs Temp Pulse Resp BP Pulse Ox 97.6 F L 84 18 118/65 100 11/07/20 09:06 11/07/20 09:06 11/07/20 09:59 11/07/20 09:06 11/07/20 09:06 Oxygen Flow Rate (L/min) 2 Oxygen Delivery Method Room Air Weight: 214 lb 8.156 oz Body Mass Index (BMI) 30.7 Intake & Output: Intake and Output for Last 24 Hours 11/05/20 11/06/20 11/07/20 23:59 23:59 23:59 Intake Total 2394.17 / 2394.17 1177.5 / 1377.5 680 / 680 Balance 2394.17 / 2394.17 1177.5 / 1377.5 680 / 680 Lab / Micro Data Result Diagrams: 11/08/20 06:34 11/08/20 06:34 Labs: Laboratory Results - last 24 hr 11/06/20 11/07/20 11/07/20 10:25 05:56 05:56 WBC 16.3 H RBC 3.49 L Hgb 10.2 L Hct 31.5 L MCV 90.3 MCH 29.2 MCHC 32.4 RDW Std Deviation 45.1 H RDW Coeff of Regi 13.7 Plt Count 154 MPV 8.9 Immature Gran % (Auto) 0.900 Neut % (Auto) 79.2 H Lymph % (Auto) 10.8 L [place] % (Auto) 6.3 Eos % (Auto) 2.6 Baso % (Auto) 0.2 Absolute Neuts (auto) 12.9 H Absolute Lymphs (auto) 1.76 Nucleated RBC % 0 Sodium 138 Potassium 3.7 Chloride 108 H Carbon Dioxide 26.0 Anion Gap 4 L BUN 18 Creatinine 0.78 Estim Creat Clear Calc 61.85 Est GFR (MDRD) Af Amer 124 Est GFR (MDRD) Non-Af 102 BUN/Creatinine Ratio 23.1 H Glucose 81 Calcium 8.3 L S.aureus Protein A PCR NEGATIVE MRSA (PCR) Negative Micro: Microbiology 11/05/20 16:00 Wound - Left Foot Gram Stain - Final 11/05/20 16:00 Wound - Left Foot Wound Culture - Preliminary GNR 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 Coag Negative Staph Radiography Diagnostic Testing: Radiology Impression Neck MRA 11/05/20 12:00 IMPRESSION: Normal bilateral cervical carotid and vertebral arteries. Detail limited by motion artifact. Electronically Signed: North Millan MD at 15:43 EDT , Service support , Brain MRI 11/06/20 12:00 IMPRESSION: Involutional changes of the brain, as described above. Electronically Signed: North Millan MD at 15:40 EDT , Service support , Head MRA 11/06/20 12:00 IMPRESSION: No aneurysm or large vessel occlusion. Mild narrowing of right posterior cerebral artery peripheral branches. Electronically Signed: North Millan MD at 15:48 EDT , Service support , Physical Exam Narrative See subjective. Const alert, oriented x3 and no apparent distress HEENT head/scalp atraumatic, moist oral mucous membranes, oropharynx normal and dentition normal Head and Scalp: normocephalic Eyes PERRL, EOMs intact bilaterally and conjunctivae normal Neck no lymphadenopathy, supple and no JVD Resp normal respiratory effort, no retractions, no use of accessory muscles and clear to auscultation bilaterally Cardio regular rate, regular rhythm, no murmurs and no JVD GI normal to inspection, nondistended, normoactive bowel sounds, soft to palpation and non-tender Extremity normal to inspection, full ROM and no clubbing, cyanosis or edema Skin no rashes or lesions noted, no wounds and skin turgor normal Neuro CN's II-XII intact bilaterally Psych affect normal Assessment & Plan Assessment/Plan (1) Encephalopathy: (2) Syncope: QUALIFIERS: Syncope type: vasovagal syncope Qualified Code(s): R55 - Syncope and collapse (3) Non-pressure chronic ulcer of left calf limited to breakdown of skin: (4) 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 Patient is now amenable to placement at [facility] facility. Case management/social work working with patient on disposition. 1) Metabolic encephalopathy Brain MRI and head MRA unremarkable. Patient alert and oriented to person and place and able to provide history into medical conditions, although speech is tangential. Plan; EEG ordered/pending, neurology consult ordered, PT/OT eval ordered, speech therapy eval ordered. 2) Syncope Likely vasovagal event witnessed in the ED. Echocardiogram on 11/06 demonstrated a normal LV systolic function and an estimated EF of 68%. Brain and head imaging as above. Plan; continue to monitor. 3) Leg wounds/Infection. Leukocytosis on CBC with WBCs at 16,000. Vital signs stable and patient is afebrile. On my examination extremities were wrapped in bandages bilaterally, per wound care. Likely related to poor self-care for lymphedema. Wound cultures of left foot grew gram-negative organisms, Proteus SP and coagulase-negative staph. Blood culture still pending. Speciation and sensitivities to follow. Plan; initiate empiric Augmentin 500 mg p.o. twice daily. 4) history of DVT Venous duplex ultrasound demonstrated no evidence of DVT. Home warfarin discontinued, Lovenox initiated. INR 1.1. Plan; continue Lovenox. Patient seen by Dinh Garay PA-C, under the supervision of Dr. Montero. Documented by User: Dr. Hattie Montero MD 11/08/20 07:43 Objective Data Lab / Micro Data Result Diagrams: 11/08/20 06:34 11/08/20 06:34 Charges/Coding Addendum Addendum: This patient was seen in conjunction with HILDA Jimenez. I have independently interviewed and examined the patient and reviewed pertinent historical, laboratory, and other data. Please refer to HILDA Jimenez's note for his patient's presentation, findings, and recommendations. I have reviewed and his note and concur with his documentation Patient was seen and examined. He is much oriented today compared to yesterday. He is alert oriented x3. He denied any new complaints Physical Exam: Gen: Comfortable, not pale, not jaundiced CVS:HS I +II, regular, no murmurs RESP: CTA GI: BS present and normal, soft, nontender, no palpable organs EXT:No edema ASSESSMENT: 1. Syncope 2. Possible seizure activity 3. Acute metabolic encephalopathy 4. Chronic leg wounds, lymphedema Plan: We will check an EEG Start on antibiotics for leg wounds Discharge planning to start - snf Visit Charges Inpatient E&M: 09399 Subs Hosp L2
[2020-11-07] MEDS: Amox/Clavulanate 500 MG Tablet PO (18:22)
--- NOTE | 2020-11-07 18:30 | CM.ED ---
Addendum entered by Madonan Geiger 11/07/20 18:32: DAHLIA met with patient in his room. Patient stated that at discharge he wants to go to Transitional Care Unit and/or [place] or [facility] at discharge. He does not want to go to [facility] or [facility] for placement. SW provided patient with another list of SNF in [facility] Plan: SNF at discharge [facility] Original Note: DAHLIA Note: Referral Source: Steeping Press Operator Referral Reason: Detention Home Placement DAHLIA met with patient in his room. Paqtient said that at discharge he wants to go [facility] Unit and
--- NOTE | 2020-11-07 19:15 | CASEMGMT ---
SW Note Referral Source: Credit Collections Analyst Referral Reason: Possible stroke SW spoke to MD. Patient did not have stroke thus PHQ9 not administrated to him. Plan: SNF at discharge [facility]
[2020-11-08] VITALS (7 sets, daily range): BP systolic 112–132; BP diastolic 61–81; PULSE 60–72; RESP 16–18; TEMP 36.1–36.6; O2SAT 96–99
[2020-11-08 06:52] LABS: Absolute Lymphocyte Count 1.35 X10^3/uL (0.83-4.51); Absolute Neutrophil Count 6.4 X10^3/uL (2.0-7.7); Basophil# 0.05 X10^3/uL; Basophil% 0.6 % (0-1); Eosinophils% 5.5 % (0-5); Hematocrit 32.6 % (40-54); Hemoglobin 10.6 g/dL (13.0-16.5); Lymphocyte # 1.35 X10^3/ul (0.83-4.51); Mean Corp Hgb Conc 32.5 g/dL (32-36); Mean Corpuscular Hgb 29.3 pg (27.0-32.0); Mean Corpuscular Volume 90.1 fL (80-94); Monocyte# 0.65 X10^3/uL; Monocyte% 7.2 % (0-10); NRBC Flagged by Analyzer 0 % (0-5); Neutrophil # 6.44 X10^3/uL (2.7-7.7); Neutrophil % 71.3 % (47-70); Platelet Count 162 K/mm3 (150-450); RBC Distribution Width CV 13.4 % (11.6-14.6); RBC Distribution Width SD 44.8 fl (35.1-43.9); Red Blood Count 3.62 M/mm3 (4.6-6.2)
[2020-11-08 07:20] LABS: Anion Gap 4 (5-15); BUN 15 mg/dL (7-18); BUN/Creat Ratio 18.3 RATIO (10-20); Calcium,Total 8.1 mg/dL (8.5-10.1); Chloride 107 mmol/L (98-107); Creatinine, Serum 0.82 mg/dL (0.70-1.30); EST Glomerular Filtration Rate 96 mL/min (>60); Est Glom Filt Rate - Afr Amer 116 mL/min (>60); Estimated Creatinine Clearance 75.42 ml/min; Glucose 81 mg/dL (74-106); Potassium 4.1 mmol/L (3.5-5.1); Sodium Level 138 mmol/L (136-145)
[2020-11-08] MEDS: Aspirin 81 MG TAB.CHEW PO (09:28)
[2020-11-08] MEDS: Enoxaparin 40 MG/0.4 ML Syringe SC (09:28)
[2020-11-08] MEDS: Ferrous Sulfate 325 MG Tablet PO (09:28)
[2020-11-08] MEDS: Ciprofloxacin 500 MG Tablet PO ×2 (09:30→21:11)
--- NOTE | 2020-11-08 13:24 | PCM.PN.HOSP ---
Documented by User: Dinh STEVENS 11/08/20 13:36 Subjective Subjective Patient is a 80-year-old male who is comfortably resting in bed, alert and oriented x3. Patient denies any change or progression in symptoms from yesterday. Denies chest pain, shortness of breath, palpitations, hemoptysis, sputum production, fever, chills, N/V/D. Objective Data Objective Data Vital Signs: Vital Signs Temp Pulse Resp BP Pulse Ox 97.6 F L 60 18 132/81 H 99 11/08/20 09:00 11/08/20 11:30 11/08/20 09:00 11/08/20 09:00 11/08/20 09:00 Oxygen Flow Rate (L/min) 2 Oxygen Delivery Method Room Air Weight: 214 lb 8.156 oz Body Mass Index (BMI) 30.7 Intake & Output: Intake and Output for Last 24 Hours 11/06/20 11/07/20 11/08/20 23:59 23:59 23:59 Intake Total 1177.5 / 1377.5 1480 / 1680 350 / 350 Output Total 725 / 725 Balance 1177.5 / 1377.5 1480 / 1205 -375 / -375 Lab / Micro Data Result Diagrams: 11/08/20 06:34 11/08/20 06:34 Labs: Laboratory Results - last 24 hr 11/08/20 11/08/20 06:34 06:34 WBC 9.0 RBC 3.62 L Hgb 10.6 L Hct 32.6 L MCV 90.1 MCH 29.3 MCHC 32.5 RDW Std Deviation 44.8 H RDW Coeff of Regi 13.4 Plt Count 162 MPV 9.0 Immature Gran % (Auto) 0.400 Neut % (Auto) 71.3 H Lymph % (Auto) 15.0 L Harn[place] % (Auto) 7.2 Eos % (Auto) 5.5 H Baso % (Auto) 0.6 Absolute Neuts (auto) 6.4 Absolute Lymphs (auto) 1.35 Nucleated RBC % 0 Sodium 138 Potassium 4.1 Chloride 107 Carbon Dioxide 27.0 Anion Gap 4 L BUN 15 Creatinine 0.82 Estim Creat Clear Calc 75.42 Est GFR (MDRD) Af Amer 116 Est GFR (MDRD) Non-Af 96 BUN/Creatinine Ratio 18.3 Glucose 81 Calcium 8.1 L Micro: Microbiology 11/05/20 16:00 Wound - Left Foot Gram Stain - Final 11/05/20 16:00 Wound - Left Foot Wound Culture - Preliminary Klebsiella oxytoca Proteus mirabilis Coag Negative Staph 11/05/20 15:50 Blood Culture (Wb) - Anticubital Right Blood Culture - Preliminary No growth in 48 hours. 11/05/20 15:50 Blood Culture (Wb) - Anticubital Left Blood Culture - Preliminary No growth in 48 hours. Physical Exam Narrative See subjective. Const alert, oriented x3 and no apparent distress HEENT head/scalp atraumatic and moist oral mucous membranes Head and Scalp: normocephalic Eyes PERRL, EOMs intact bilaterally and conjunctivae normal Neck no lymphadenopathy, supple and no JVD Resp normal respiratory effort, no retractions and no use of accessory muscles Cardio regular rate, regular rhythm, no murmurs and no JVD GI normal to inspection, nondistended, normoactive bowel sounds Extremity Extremity Narrative: Wound bandage is wrapped bilaterally around the lower extremities Skin no jaundice Skin Narrative: See extremities Neuro CN's II-XII intact bilaterally Psych affect normal Assessment & Plan Assessment/Plan (1) Encephalopathy: (2) Syncope: QUALIFIERS: Syncope type: vasovagal syncope Qualified Code(s): R55 - Syncope and collapse (3) Non-pressure chronic ulcer of left calf limited to breakdown of skin: (4) 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 Patient now amenable to SNF placement, case management/social work following. 1) Metabolic encephalopathy Difficult to assess patient's baseline mentation. EEG ordered and interpreted: No epileptiform changes noted. Brain MRI and head MRA unremarkable. Patient alert and oriented to person and place and able to provide history into medical conditions, although speech is tangential. Plan; PT/OT eval ordered, speech therapy eval ordered. 2) Syncope Likely vasovagal event witnessed in the ED. Echocardiogram on 11/06 demonstrated a normal LV systolic function and an estimated EF of 68%. Brain and head imaging as above. Plan; continue to monitor. 3) Leg wounds/Infection. Leukocytosis on CBC with WBCs at 16,000. Vital signs stable and patient is afebrile. On my examination extremities were wrapped in bandages bilaterally, per wound care. Likely related to poor self-care for lymphedema. Wound cultures of left foot grew Klebsiella oxytoca, Proteus mirabilis and coagulase-negative staph. Blood cultures demonstrate no growth. Augmentin discontinued. Plan; ciprofloxacin 500 mg p.o. twice daily initiated in accordance with sensitivities. 4) history of DVT Venous duplex ultrasound demonstrated no evidence of DVT. Home warfarin discontinued, Lovenox initiated. INR 1.1. Plan; continue Lovenox. DVT prophylaxis -Lovenox Patient seen by Dinh Garya PA-C, under the supervision of Dr. Montero. Documented by User: Dr. Hattie Montero MD 11/08/20 14:05 Objective Data Lab / Micro Data Result Diagrams: 11/08/20 06:34 11/08/20 06:34 Charges/Coding Addendum Addendum: This patient was seen in conjunction with HILDA Jimenez. I have independently interviewed and examined the patient and reviewed pertinent historical, laboratory, and other data. Please refer to HILDA Jimenez's note for his patient's presentation, findings, and recommendations. I have reviewed and his note and concur with his documentation Patient was seen and examined. No acute events. EEG is negative. Physical Exam: Gen: Comfortable, not pale, not jaundiced CVS:HS I +II, regular, no murmurs RESP: CTA GI: BS present and normal, soft, nontender, no palpable organs EXT:No edema ASSESSMENT: 1. Syncope 2. Acute metabolic encephalopathy 4. Chronic leg wounds, lymphedema Plan: Continue on antibiotics for leg wounds Discharge planning to start - snf Visit Charges Inpatient E&M: 13953 Subs Hosp L2
[2020-11-09 03:00] VITALS: PULSE 67
[2020-11-09 03:25] VITALS: BP 114/61; PULSE 67; RESP 16; TEMP 36.6; O2SAT 95
[2020-11-09 06:56] LABS: Absolute Lymphocyte Count 1.23 X10^3/uL (0.83-4.51); Basophil# 0.03 X10^3/uL; Basophil% 0.5 % (0-1); Eosinophil# 0.54 X10^3/uL; Eosinophils% 8.5 % (0-5); Hemoglobin 11.3 g/dL (13.0-16.5); Lymphocyte # 1.23 X10^3/ul (0.83-4.51); Lymphocyte % 19.3 % (19-41); Mean Corp Hgb Conc 32.3 g/dL (32-36); Mean Platelet Vol. 9.1 fl (6.2-12.0); Monocyte# 0.55 X10^3/uL; Monocyte% 8.6 % (0-10); NRBC Flagged by Analyzer 0 % (0-5); Neutrophil # 3.98 X10^3/uL (2.7-7.7); Neutrophil % 62.5 % (47-70); Platelet Count 209 K/mm3 (150-450); RBC Distribution Width CV 13.2 % (11.6-14.6); RBC Distribution Width SD 43.3 fl (35.1-43.9); Red Blood Count 3.89 M/mm3 (4.6-6.2); White Blood Count 6.4 K/mm3 (4.4-11.0)
[2020-11-09 07:00] VITALS: PULSE 72
[2020-11-09 07:21] LABS: Anion Gap 5 (5-15); BUN 13 mg/dL (7-18); BUN/Creat Ratio 19.4 RATIO (10-20); Calcium,Total 8.3 mg/dL (8.5-10.1); Chloride 108 mmol/L (98-107); Creatinine, Serum 0.67 mg/dL (0.70-1.30); EST Glomerular Filtration Rate 122 mL/min (>60); Est Glom Filt Rate - Afr Amer 147 mL/min (>60); Estimated Creatinine Clearance 61.85 ml/min; Glucose 83 mg/dL (74-106); Potassium 3.8 mmol/L (3.5-5.1); Sodium Level 140 mmol/L (136-145)
[2020-11-09 08:57] VITALS: BP 137/76; PULSE 74; RESP 16; TEMP 36.2; O2SAT 94
[2020-11-09] MEDS: Ciprofloxacin 500 MG Tablet PO (09:01)
[2020-11-09] MEDS: Aspirin 81 MG TAB.CHEW PO (09:03)
[2020-11-09] MEDS: Ferrous Sulfate 325 MG Tablet PO (09:03)
[2020-11-09] MEDS: Enoxaparin 40 MG/0.4 ML Syringe SC (09:03)
--- NOTE | 2020-11-09 10:46 | CASEMGMT ---
DAHLIA spoke with Mercedes from TCU and she would have a bed for patient. DAHLIA spoke with patient and let him know he can go to TCU. DAHLIA explained that days 1-20 are covered at 100% and after that there is a daily co-pay. DAHLIA told him [facility] would not [facility] any of his stay while in [facility]CU. He verbalized understanding. Plan: [facility] Sherry PEDERSEN
--- NOTE | 2020-11-09 11:34 | PCM.TXEXTCAR ---
Documented by User: Dinh STEVENS 11/09/20 11:55 Diet 11/06/20 14:29 Diet: Cardiac - Heart Healthy Food consistency:: Easy to Chew Liquid Consistency:: Regular/Thin Is pt able to select menu?: No Wound(s) Right inner ankle: Wound Type: Stasis Ulcer Left inner lower leg: Wound Type: Stasis Ulcer left medial lower leg: Wound Type: Stasis Ulcer Dressing Change: AntiMicrobial (Aquacel AG, etc) left medial ankle: Wound Type: Stasis Ulcer Dressing Change: AntiMicrobial (Aquacel AG, etc) Therapies Weight Bearing: Partial weight bearing Physical Therapy: Eval and Treat Occupational Therapy: Eval and Treat Problem/Diagnosis (1) Encephalopathy: Status: Acute (2) Syncope: Status: Acute (3) Non-pressure chronic ulcer of left calf limited to breakdown of skin: Status: Acute (4) 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: Status: Acute (5) HLD (hyperlipidemia): Status: Chronic (6) Infection: Status: Acute (7) Lymphedema of both lower extremities: Status: Acute Allergies/Procedures Done in Hospital Allergies vancomycin Allergy (Verified 11/05/20 19:30) Anaphylaxis red ariel and seizure Type of Care/Length of Stay Estimated LOS: Convalescent Care Less Than 30 days Type of Care Needed: Skilled Rehab Potential: Good Prognosis: Good Additional Orders/Day of Discharge Day of Discharge: 11/09/20 Dietary and Speech Recommendations Dietitian Recommendations/Changes: When able to resume po diet, rec RAISSA to Cardiac diet d/t pmhx Monitor need for ONS pending po intake as established. Discharge Plan Admission Admit Date/Time: 11/05/20 18:43 Primary Reason for Your Visit: Encephalopathy/Syncope Attending Provider: Jame Saucedo Primary Care Provider: [facility],[place] Instructions Additional Instructions / Restrictions: wash legs and feet daily with soap and water. be sure to wash and dry between toes as well. place Aquacel AG to the open areas left medial lower leg and ankle. cover with dry dressing. apply aloe vesta to the dry skin bilateral lower legs (avoid the wounds). wrap with kerlix. apply CARMINE wraps from the base of the toes to just below the knees. change daily and prn. Discharge Orders/Prescriptions Prescriptions: New warfarin 5 mg tablet 5 mg PO DAILY Qty: 30 RF: 0 enoxaparin [Lovenox] 40 mg/0.4 mL syringe 40 mg subcut DAILY 30 Days Qty: 12 RF: 0 ciprofloxacin HCl [Cipro] 500 mg tablet 500 mg PO BID Qty: 7 RF: 0 Continued aspirin 81 MG tablet,chewable 81 mg PO DAILY@0800 RF: 0 ferrous sulfate [Iron (ferrous sulfate)] 325 MG tablet 325 mg PO DAILY RF: 0 Discontinued warfarin [Jantoven] 2 MG tablet 6 mg PO QODAY RF: 0 warfarin 3 MG tablet 3 mg PO QODAY RF: 0 clindamycin HCl 300 MG capsule 300 mg PO Q6H Qty: 40 RF: 0 Referrals / Follow Up: [facility] [Primary Care Provider] - Within 2 Weeks Disposition Disposition (needs filled in before D/C Order can be placed): Longterm Facility Documented by User: Dr. Jame Saucedo MD 11/09/20 13:11 Allergies/Procedures Done in Hospital Allergies vancomycin Allergy (Verified 11/05/20 19:30) Anaphylaxis red ariel and seizure Discharge Plan Admission Admit Date/Time: 11/05/20 18:43 Primary Reason for Your Visit: Encephalopathy/Syncope Attending Provider: Jame Saucedo Primary Care Provider: [facility],[place] Instructions Additional Instructions / Restrictions: wash legs and feet daily with soap and water. be sure to wash and dry between toes as well. place Aquacel AG to the open areas left medial lower leg and ankle. cover with dry dressing. apply aloe vesta to the dry skin bilateral lower legs (avoid the wounds). wrap with kerlix. apply CARMINE wraps from the base of the toes to just below the knees. change daily and prn. Discharge Orders/Prescriptions Prescriptions: New warfarin 5 mg tablet 5 mg PO DAILY Qty: 30 RF: 0 enoxaparin [Lovenox] 40 mg/0.4 mL syringe 40 mg subcut DAILY 30 Days Qty: 12 RF: 0 ciprofloxacin HCl [Cipro] 500 mg tablet 500 mg PO BID Qty: 7 RF: 0 Continued aspirin 81 MG tablet,chewable 81 mg PO DAILY@0800 RF: 0 ferrous sulfate [Iron (ferrous sulfate)] 325 MG tablet 325 mg PO DAILY RF: 0 Discontinued warfarin [Jantoven] 2 MG tablet 6 mg PO QODAY RF: 0 warfarin 3 MG tablet 3 mg PO QODAY RF: 0 clindamycin HCl 300 MG capsule 300 mg PO Q6H Qty: 40 RF: 0 [place]errals [place] [facility] - Within 2 Weeks Disposition Disposition (needs filled in before D/C Order can be placed): Longterm Facility
--- NOTE | 2020-11-09 11:52 | NURSING ---
wound photo: left medial lower leg/ankle
--- NOTE | 2020-11-09 11:52 | NURSING ---
skin photo: right lower leg
--- NOTE | 2020-11-09 11:56 | PCM.DC.SUM ---
Documented by User: Dinh STEVENS 11/09/20 12:09 Providers Date of Admission: 11/05/20 Primary Care Physician: [facility] Consultations 11/05/20 20:31 Consult: Onc/Wound/senior payroll specialist Routine Comment: Reason For Visit: ENCEPHALOPATHY Diagnosis Discharge Diagnosis (1) Encephalopathy: Status: Acute Code(s): G93.40 - Encephalopathy, unspecified (2) Syncope: Status: Acute Code(s): R55 - Syncope and collapse Qualifiers: Syncope type: vasovagal syncope Qualified Code(s): R55 - Syncope and collapse (3) Non-pressure chronic ulcer of left calf limited to breakdown of skin: Status: Acute Code(s): L97.221 - Non-pressure chronic ulcer of left calf limited to breakdown of skin (4) 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: Status: Acute Code(s): L97.902 - Non-pressure chronic ulcer of unspecified part of unspecified lower leg with fat layer exposed Qualifiers: Laterality: left Qualified Code(s): L97.922 - Non-pressure chronic ulcer of unspecified part of left lower leg with fat layer exposed (5) HLD (hyperlipidemia): Status: Chronic Code(s): E78.5 - Hyperlipidemia, unspecified (6) Infection: Status: Acute Code(s): B99.9 - Unspecified infectious disease (7) Lymphedema of both lower extremities: Status: Acute Code(s): I89.0 - Lymphedema, not elsewhere classified Medications at Discharge Home Medications aspirin 81 mg PO DAILY@0800 06/18/14 ferrous sulfate [Iron (ferrous sulfate)] 325 mg PO DAILY 07/27/16 ciprofloxacin HCl [Cipro] 500 mg PO BID 11/09/20 enoxaparin [Lovenox] 40 mg SUBCUT DAILY 11/09/20 warfarin 5 mg PO DAILY 11/09/20 Hospital Course Summary of Care Provided Minutes Spent on Discharge: 35 Hospital Course: See subjective for patient presentation. Patient to be discharged today in accordance with patient wishes. 1) Acute encephalopathy Resolved. Difficult to assess patient's baseline mentation. EEG ordered and interpreted: No epileptiform changes noted. Brain MRI and head MRA unremarkable. Patient alert and oriented to person and place and able to provide history into medical conditions, although speech is tangential. Plan; discharge to TCU. 2) Syncope Likely vasovagal event witnessed in the ED. Echocardiogram on 11/06 demonstrated a normal LV systolic function and an estimated EF of 68%. Brain and head imaging as above. Plan; continue to monitor. 3) Leg wounds/Infection. Leukocytosis on CBC with WBCs at 16,000. Vital signs stable and patient is afebrile. On my examination extremities were wrapped in bandages bilaterally, per wound care. Likely related to poor self-care for lymphedema. Wound cultures of left foot grew Klebsiella oxytoca, Proteus mirabilis and coagulase-negative staph. Blood cultures demonstrate no growth. Augmentin discontinued. Plan; continue ciprofloxacin 500 mg p.o. twice daily x7 days on discharge. 4) history of DVT Venous duplex ultrasound demonstrated no evidence of DVT. Plan; Lovenox to Coumadin bridge initiated on discharge, discontinue Lovenox when INR is 1.8. Patient seen by Dinh Garay PA-C, under the supervision of Dr. Saucedo. Physical Exam Narrative Patient is a 80-year-old male comfortably resting in the chair eating breakfast, alert and oriented x3. Denies any progression in symptoms from yesterday. Denies chest pain, shortness of breath, palpitations, fever, chills, N/V/D. Const alert, oriented x3 and no apparent distress HEENT normocephalic, head/scalp atraumatic and hearing grossly normal bilaterally Eyes PERRL, EOMs intact bilaterally and conjunctivae normal Neck no lymphadenopathy, supple and no JVD Resp normal respiratory effort, no retractions and no use of accessory muscles Cardio regular rate, regular rhythm, no murmurs and no JVD GI normal to inspection, nondistended, normoactive bowel sounds and soft to palpation Extremity normal to inspection, full ROM and no clubbing, cyanosis or edema Extremity Narrative: Bilateral lower extremities wrapped in Bhanu bandages for appropriate wound healing. Skin Skin Narrative: See extremities. Neuro CN's II-XII intact bilaterally Psych affect normal Weight / BMI Weight Weight: 214 lb 8.156 oz Body Mass Index (BMI) 30.7 ABG / Lab / Microbiology Data Result Diagrams: 11/09/20 06:25 11/09/20 06:25 Laboratory: Laboratory Results - last 24 hr 11/09/20 11/09/20 06:25 06:25 WBC 6.4 RBC 3.89 L Hgb 11.3 L Hct 35.0 L MCV 90.0 MCH 29.0 MCHC 32.3 RDW Std Deviation 43.3 RDW Coeff of Regi 13.2 Plt Count 209 MPV 9.1 Immature Gran % (Auto) 0.600 Neut % (Auto) 62.5 Lymph % (Auto) 19.3 [place] % (Auto) 8.6 Eos % (Auto) 8.5 H Baso % (Auto) 0.5 Absolute Neuts (auto) 4.0 Absolute Lymphs (auto) 1.23 Nucleated RBC % 0 Sodium 140 Potassium 3.8 Chloride 108 H Carbon Dioxide 27.0 Anion Gap 5 BUN 13 Creatinine 0.67 L Estim Creat Clear Calc 61.85 Est GFR (MDRD) Af Amer 147 Est GFR (MDRD) Non-Af 122 BUN/Creatinine Ratio 19.4 Glucose 83 Calcium 8.3 L Microbiology: Microbiology 11/05/20 16:00 Gram Stain - Final Wound - Left Foot Wound Culture - Final Klebsiella oxytoca Proteus mirabilis Coag Negative Staph Proteus hauseri Microbiology 11/05/20 16:00 Wound - Left Foot Gram Stain - Final 11/05/20 16:00 Wound - Left Foot Wound Culture - Final Klebsiella oxytoca Proteus mirabilis Coag Negative Staph Proteus hauseri 11/05/20 15:50 Blood Culture (Wb) - Anticubital Right Blood Culture - Preliminary No growth in 48 hours. 11/05/20 15:50 Blood Culture (Wb) - Anticubital Left Blood Culture - Preliminary No growth in 48 hours. Meaningful Use Info Meaningful Use Diagnoses (Choose all that apply): None applicable Discharge Plan Admission Admit Date/Time: 11/05/20 18:43 Primary Reason for Your Visit: Encephalopathy/Syncope Attending Provider: Jame Saucedo Primary Care Provider: [facility],[place] Instructions Additional Instructions / Restrictions: wash legs and feet daily with soap and water. be sure to wash and dry between toes as well. place Aquacel AG to the open areas left medial lower leg and ankle. cover with dry dressing. apply aloe vesta to the dry skin bilateral lower legs (avoid the wounds). wrap with kerlix. apply BHANU wraps from the base of the toes to just below the knees. change daily and prn. Discharge Orders/Prescriptions Prescriptions: Continued aspirin 81 MG tablet,chewable 81 mg PO DAILY@0800 RF: 0 ferrous sulfate [Iron (ferrous sulfate)] 325 MG tablet 325 mg PO DAILY RF: 0 Discontinued warfarin [Jantoven] 2 MG tablet 6 mg PO QODAY RF: 0 warfarin 3 MG tablet 3 mg PO QODAY RF: 0 clindamycin HCl 300 MG capsule 300 mg PO Q6H Qty: 40 RF: 0 No Action ciprofloxacin HCl [Cipro] 500 mg tablet 500 mg PO BID RF: 0 warfarin 5 mg tablet 5 mg PO DAILY RF: 0 enoxaparin [Lovenox] 40 mg/0.4 mL syringe 40 mg subcut DAILY RF: 0 Referrals [facility] [place] [facility] [facility] [place] - Within 2 Weeks Disposition Disposition (needs filled in before D/C Order can be placed): Detention Facility Documented by User: Dr. Jame Saucedo MD 11/10/20 15:07 Providers Date of Admission: 11/05/20 Reason For Visit: ENCEPHALOPATHY Medications at Discharge Home Medications aspirin 81 mg PO DAILY@0800 06/18/14 ferrous sulfate [Iron (ferrous sulfate)] 325 mg PO DAILY 07/27/16 ciprofloxacin HCl [Cipro] 500 mg PO BID 11/09/20 enoxaparin [Lovenox] 40 mg SUBCUT DAILY 11/09/20 warfarin 5 mg PO DAILY 11/09/20 Hospital Course Summary of Care Provided Hospital Course: This patient was seen in conjunction with HILDA Ponce. I have independently interviewed and examined the patient and reviewed pertinent history, examination findings, laboratory and plan of management. I have reviewed the note and agree with the documented findings with the few additional points. In brief, patient is admitted for acute encephalopathy, syncope with leg wounds, lymphedema and venous hypertensive changes. EEG did not show any epileptiform discharges. MRI brain reported no acute change and MRA head showed no large vessel occlusion or aneurysm but mild narrowing of right ROTARY DRILLER peripheral branches. Patient has dementia and hard of hearing. Thought process tangential. Syncope was thought to be mainly due to vasovagal. Echo showed EF 68%. Patient had leg wound and had wound culture shows multiple organisms most likely colonization but had leukocytosis therefore treated with Cipro discharged on total of 7 days of antibiotic. Other comorbidities as mentioned above Discharge medication reconciliation done. Discharge follow-up instructions completed. Discharge process discussed with the patient and all questions were answered to patient's satisfaction. Discharged to TCU Total time spent, exact 35 minutes on discharge meds reconciliation, examination, coordination of care with nurses and ancillary staff, review of imaging and blood test and discussion with the patient on follow-up instructions I have discussed my assessment with HILDA Ponce and orders have been reviewed. Physical Exam Narrative Seen and examined. Patient is on baseline mental status. No acute complaint. General: Moderate cognitive deficit/dementia. Oriented x3. HEENT: Atraumatic, PERRLA, EOMI, Normocephalic Oral: No Gingival or Mucosal Lesions/ Ulcerations Neck: Supple, No JVD, Negative Carotid Bruits Lungs: Air entry diminished in bilateral lung bases. No crepitation/rhonchi Cardiovascular: Regular rate, Regular Rhythm, Normal S1, Normal S2, ESM over left second ICS. Abdomen: Bowel Sounds Present, Soft, Non Tender, Non-Distended : No renal angle tenderness. No suprapubic tenderness. Extremities: Bilateral lower extremity lymphedema Bhanu wrapped. Swelling improved. Capillary Refill Less than 3 Seconds Skin: Venous hypertension changes, lichenification of lower extremities much improved. Musculoskeletal: No Tenderness to Palpation of Joints or Extremities Neurological: Cranial nerves II-XII grossly intact, Deep Tendon Reflexes 2+/4 and Symmetrical, Neuro grossly intact Psych/Mental Status: Flat affect. ABG / Lab / Microbiology Data Result Diagrams: 11/09/20 06:25 11/09/20 06:25 Discharge Plan Admission Admit Date/Time: 11/05/20 18:43 Primary Reason for Your Visit: Encephalopathy/Syncope Attending Provider: Jame Saucedo Primary Care Provider: [facility],[place] Instructions Additional Instructions / Restrictions: wash legs and feet daily with soap and water. be sure to wash and dry between toes as well. place Aquacel AG to the open areas left medial lower leg and ankle. cover with dry dressing. apply aloe vesta to the dry skin bilateral lower legs (avoid the wounds). wrap with kerlix. apply BHANU wraps from the base of the toes to just below the knees. change daily and prn. Discharge Orders/Prescriptions Prescriptions: Continued aspirin 81 MG tablet,chewable 81 mg PO DAILY@0800 RF: 0 ferrous sulfate [Iron (ferrous sulfate)] 325 MG tablet 325 mg PO DAILY RF: 0 Discontinued warfarin [Jantoven] 2 MG tablet 6 mg PO QODAY RF: 0 warfarin 3 MG tablet 3 mg PO QODAY RF: 0 clindamycin HCl 300 MG capsule 300 mg PO Q6H Qty: 40 RF: 0 No Action ciprofloxacin HCl [Cipro] 500 mg tablet 500 mg PO BID RF: 0 warfarin 5 mg tablet 5 mg PO DAILY RF: 0 enoxaparin [Lovenox] 40 mg/0.4 mL syringe 40 mg subcut DAILY RF: 0 Referrals [facility] [facility] [[facility] [place]] - Within 2 Weeks Disposition Disposition (needs filled in before D/C Order can be placed): Detention Facility Charges/Coding Visit Charges Inpatient E&M: 05972 Disch Hosp
--- NOTE | 2020-11-09 14:09 | CASEMGMT ---
DAHLIA called Adult Protective Services and left a message with Leonardo letting her know that patient is going to [facility]CU today. DAHLIA also called Gregory, the Furniture Delivery Driver at [facility] and let her know the plan. DAHLIA attempted to call patient's daughter, but it went to voice mail with no identifier so no message was left. Plan[facility] under skilled level of care. Sherry Saavedra DIGITAL ART DIRECTORBeatris PEDERSEN
== END 2020-11-09 15:40 | disposition skilled nursing facility (03) | DRG 71 ==
LOC: ED 16:33 → PCU 21:34
PROVIDERS: Emergency Medicine; Internal Medicine; Physician Assistant; Emergency Provider Emergency Medicine; Visit Provider Internal Medicine
DX: G93.41 Metabolic encephalopathy (principal); L97.822 Non-pressure chronic ulcer of other part of left lower leg with fat layer exposed; R55 Syncope and collapse; Z86.718 Personal history of other venous thrombosis and embolism; I89.0 Lymphedema, not elsewhere classified; B96.1 Klebsiella pneumoniae [K. pneumoniae] as the cause of diseases classified elsewhere; B96.4 Proteus (mirabilis) (morganii) as the cause of diseases classified elsewhere; F03.90 Unspecified dementia, unspecified severity, without behavioral disturbance, psychotic disturbance, mood disturbance, and anxiety; I95.2 Hypotension due to drugs; T36.8X5A Adverse effect of other systemic antibiotics, initial encounter
CPT/HCPCS: 36415; 70450; 70544; 70547; 70551; 73590; 73620; 80048; 80053; 80061; 82962; 83605; 84484; 85025; 85610; 85730; 87040; 87070; 87077; 87186; 87205; 87426; 87640; 92610; 93005; 93306; 93970; 94762; 95819; 97110; 97162; 97166; 97530; 97535; 97802; 99285; J7030; J7040; A4216

== ENCOUNTER 2020-11-09 15:44 | Inpatient (IN) | payer MEDICARE, SELFPAY ==
[2020-11-06 16:56] VITALS: BMI 30.7
[2020-11-09 15:44] VITALS: O2SAT 98
[2020-11-09 15:56] VITALS: BMI 30.4
[2020-11-09 16:09] VITALS: BP 99/77; PULSE 69; RESP 18; TEMP 36.6; O2SAT 96
[2020-11-09 17:12] LABS: International Normalized Ratio 1.1; Prothrombin Time (Protime)PT. 13.3 SECONDS (11.7-14.9)
[2020-11-09] MEDS: Ciprofloxacin 500 MG Tablet PO (17:54)
--- NOTE | 2020-11-09 20:06 | HP.PCM_ITS ---
HPI - General General Date of Admission: 11/09/20 HPI Narrative 11/05/2020 LIEST MORENO, is a 80 Male who presents to [facility] Emergency Department with wounds. 11/05/2020 EKG normal sinus rhythm, normal EKG. Lymphedema x several years. Wound cent for chronic wounds, lymphedema, venous stasis dermatitis. Has not gone to wound center for over 1 year. Left lower extremity wounds, blood culture, wound culture done. Zosyn given without problem, Vancomycin given with reaction, patient unresponsive, hypotensive, responded to IV fluid resuscitation. 11/05/2020 Admit to Hospital. MRI brain, MRA head/neck for encephalopathy. Vasovagal event while having large bowel movement. Consult wound care for left lower extremity wounds, stop antibiotics. Doppler ultrasound bilateral lower extremity to evaluate for DVT. 11/05/2020 Echo Normal LVSF. EF 68%. 11/06/2020 Doppler ultrasound bilateral lower extremity negative for DVT. 11/07/2020 MRI brain negative, MRA head/neck negative, encephalopathy improving, EEG pending. WBC elevated, start Augmentin for cellulitis left lower extremity. [facility] 11/08/2020 EEG negative for seizures. Syncope secondary to vasovagal event. Wound culture growing K. Oxytoca, P. Mirabilis, coagulase negative staph, antibiotic changed from Augnentin to Cipro 500MG BID x 7 days. Warfarin stopped, started on Lovenox for history of DVT. 11/09/2020 Coumadin resumed. Admit to TCU with debility, here for rehabilitation, strengthening, wound care, prior to discharge home alone. Resident mentioned bedbugs at home. [facility] Home Medications aspirin 81 mg PO DAILY@0800 06/18/14 [History Last Taken 03/13/15 09:00] ferrous sulfate [Iron (ferrous sulfate)] 325 mg PO DAILY 07/27/16 [History Last Taken Unknown] ciprofloxacin HCl [Cipro] 500 mg PO BID 11/09/20 [History Last Taken Unknown] enoxaparin [Lovenox] 40 mg SUBCUT DAILY 11/09/20 [History Last Taken Unknown] warfarin 5 mg PO DAILY 11/09/20 [History Last Taken Unknown] Allergy/AdvReac Type Severity Reaction Status Date / Time vancomycin Allergy Anaphylaxis Verified 11/05/20 19:30 Social History (Updated 11/09/20 @ 20:[address] Joey Weinberg MD) household members: none Smoking Status: Never smoker substance use type: does not use ROS Constitutional Constitutional: Denies chills, fever(s) or weight gain ENT HEENT: Denies headache(s), nasal congestion or nasal discharge Cardiovascular Cardiovascular: Denies chest pain or palpitations Respiratory/Chest Respiratory/Chest: Denies cough, excessive phlegm production or shortness of breath with exertion Gastrointestinal Gastrointestinal: Denies abdominal pain, nausea or vomiting Genitourinary Genitourinary: Denies dysuria Musculoskeletal Musculoskeletal: Denies joint pain or joint swelling Integumentary Integumentary: Denies rash or wounds Neurologic Neurologic: Denies focal weakness, numbness or tingling Psychiatric Psychiatric: Reports auditory hallucinations; Denies anxiety, depression, homicidal ideation or suicidal ideation Vital Signs Vital Signs Vital Signs: 11/09/20 15:44 11/09/20 15:50 11/09/20 16:09 Temperature 97.9 F Temperature Source Temporal Pulse Rate 69 Pulse Rhythm Regular Pulse Strength Normal (2+) Respiratory Rate 18 Respiratory Effort Normal Non-Labored Respiratory Depth Normal Respiratory Pattern Normal Blood Pressure 99/77 Blood Pressure Mean 84 Blood Pressure Source Monitor Blood Pressure Position Sitting Pulse Ox 98 96 Oxygen Delivery Method Room Air Room Air Room Air Weight Weight: 96.207 kg Body Mass Index (BMI) 30.4 Physical Exam Const alert and oriented x3 General Appearance: cooperative HEENT normocephalic Eyes PERRL and EOMs intact bilaterally Neck supple, no JVD and no carotid bruits Resp normal respiratory effort, normal air movement and clear to auscultation bilaterally Cardio regular rate and regular rhythm GI normal to inspection, nondistended, normoactive bowel sounds, non-tender and non-distended Extremity normal capillary refill Extremity Narrative: Left lower extremity dressed. 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 * Debility - PT/OT. * Pain - Tylenol 1000MG Q6H PRN pain (1-10). * Bowel - Miralax 17GM daily PRN, Senna/colace 1 tablet BID PRN, Dulcolax 10MG daily PRN. * Adult immunization - Administer Prevnar 13, Pneumovax 23, Fluzone, COVID19 vaccine as appropriate. * DVT prophylaxis - Not necessary, on warfarin. * Cellulitis of left lower extremity - Cipro 500MG BID thru 11/16/2020. * Left lower extremity wound - Consult wound nurse. * Iron deficiency anemia - Ferrous sulfate 325MG daily. * Tinea Corporis - Nystatin powder topical BID. * Recurrent DVT - Warfarin 5MG daily, monitor INR, especially on quinolone antibiotic.
[2020-11-09] MEDS: Nystatin Powder 15gm Bottle 1 APPLIC TOPICAL (22:07)
[2020-11-10 05:16] VITALS: BP 137/81; PULSE 78; RESP 16; TEMP 36.4; O2SAT 95
[2020-11-10] MEDS: Ciprofloxacin 500 MG Tablet PO ×2 (05:17→17:33)
[2020-11-10] MEDS: Nystatin Powder 15gm Bottle 1 APPLIC TOPICAL ×2 (05:17→17:33)
[2020-11-10 05:52] LABS: Absolute Lymphocyte Count 1.31 X10^3/uL (0.83-4.51); Absolute Neutrophil Count 3.1 X10^3/uL (2.0-7.7); Basophil# 0.04 X10^3/uL; Basophil% 0.7 % (0-1); Eosinophil# 0.54 X10^3/uL; Eosinophils% 9.4 % (0-5); Hematocrit 35.6 % (40-54); Hemoglobin 11.4 g/dL (13.0-16.5); Lymphocyte # 1.31 X10^3/ul (0.83-4.51); Lymphocyte % 22.7 % (19-41); Mean Corpuscular Volume 90.6 fL (80-94); Mean Platelet Vol. 8.6 fl (6.2-12.0); Monocyte# 0.71 X10^3/uL; Monocyte% 12.3 % (0-10); NRBC Flagged by Analyzer 0 % (0-5); Neutrophil # 3.12 X10^3/uL (2.7-7.7); Neutrophil % 54.2 % (47-70); Platelet Count 211 K/mm3 (150-450); RBC Distribution Width CV 13.1 % (11.6-14.6); RBC Distribution Width SD 43.5 fl (35.1-43.9); Red Blood Count 3.93 M/mm3 (4.6-6.2); White Blood Count 5.8 K/mm3 (4.4-11.0)
[2020-11-10 06:05] LABS: International Normalized Ratio 1.1; Prothrombin Time (Protime)PT. 13.5 SECONDS (11.7-14.9)
[2020-11-10 06:21] LABS: Anion Gap 8 (5-15); BUN 14 mg/dL (7-18); BUN/Creat Ratio 19.2 RATIO (10-20); Calcium,Total 8.1 mg/dL (8.5-10.1); Chloride 107 mmol/L (98-107); Creatinine, Serum 0.73 mg/dL (0.70-1.30); EST Glomerular Filtration Rate 110 mL/min (>60); Est Glom Filt Rate - Afr Amer 134 mL/min (>60); Estimated Creatinine Clearance 61.85 ml/min; Glucose 83 mg/dL (74-106); Potassium 3.8 mmol/L (3.5-5.1); Sodium Level 140 mmol/L (136-145)
[2020-11-10] MEDS: Aspirin 81 MG TAB.CHEW PO (09:30)
[2020-11-10] MEDS: Ferrous Sulfate 325 MG Tablet PO (09:30)
[2020-11-10 10:00] VITALS: O2SAT 98
[2020-11-10] MEDS: Tuberculin,Purif.prot.deriv. 50 TU/ML Vial 0.1 ML ID (10:22)
--- NOTE | 2020-11-10 14:24 | CASEMGMT ---
Addendum entered by Neetu Harding 11/10/20 16:14: Correction, Jack Coles contact number is [phone]. Original Note: Social Work See attached for complete social work assessment. Patient reports main support person as Jack Coles ([phone]), patient neighbor. Patient reports to have limited support from patient daughters. MOLST from completed. Patient reports concern for possible bed bugs in the home and to have an [place] aide going to the home today to look into things. Patient denies any financial concerns or care concerns. Will continue to follow. Eladio DEWITT, LARISA
[2020-11-10 19:03] VITALS: BP 122/59; PULSE 65; RESP 16; TEMP 37.1; O2SAT 98
--- NOTE | 2020-11-11 02:00 | PCA ---
Pt declined to wash up for the evening, stating he will in the morning. em
[2020-11-11] MEDS: Ciprofloxacin 500 MG Tablet PO ×2 (05:25→16:56)
[2020-11-11] MEDS: Nystatin Powder 15gm Bottle 1 APPLIC TOPICAL ×2 (05:27→16:57)
[2020-11-11 06:07] LABS: International Normalized Ratio 1.1; Prothrombin Time (Protime)PT. 13.7 SECONDS (11.7-14.9)
[2020-11-11] MEDS: Ferrous Sulfate 325 MG Tablet PO (08:10)
[2020-11-11] MEDS: Aspirin 81 MG TAB.CHEW PO (08:10)
--- NOTE | 2020-11-11 11:15 | PCM.PN.RX ---
Progress Note - Pharmacy Subjective: TCU Admission Objective: Allergies vancomycin Allergy (Verified 11/05/20 19:30) Anaphylaxis red ariel and seizure Current Medications Generic Name Dose Route Start Last Admin Trade Name Zaki PRN Reason Stop Dose Admin Acetaminophen 1,000 mg 11/09/20 20:19 Acetaminophen 500 Mg Tablet PO Q6H PRN PRN Pain Score 1-10 Aspirin 81 mg 11/10/20 08:00 11/11/20 08:10 Aspirin 81 Mg Tab.Chew PO 81 mg DAILYCM KAY Administration Bisacodyl 10 mg 11/09/20 20:19 Bisacodyl 5 Mg Tablet PO DAILY PRN CONSTIPATION Ciprofloxacin HCl 500 mg 11/09/20 18:00 11/11/20 05:25 Ciprofloxacin 500 Mg Tablet PO 11/16/20 06:01 500 mg BID KAY Administration Ferrous Sulfate 325 mg 11/10/20 08:00 11/11/20 08:10 Ferrous Sulfate 325 Mg Tablet PO 325 mg DAILYCM KAY Administration Nystatin 1 applic 11/09/20 18:00 11/11/20 05:27 Nystatin Powder 15gm Bottle TOPICAL 1 applic BID KAY Administration Protocol Polyethylene Glycol 17 gm 11/09/20 20:19 Polyethylene Glycol 3350 17 Gm Packet PO DAILY PRN Constipation Senna/Docusate Sodium 1 tablet 11/09/20 20:19 Senna/Docusate Sodium 1 Tablet PO BID PRN CONSTIPATION Tuberculin PPD 0.1 ml 11/17/20 10:00 Tuberculin,Purif.Prot.Deriv. 50 Tu/Ml Vial ID 11/17/20 10:01 X1 ONE Warfarin Sodium 5 mg 11/09/20 17:00 11/10/20 15:56 Warfarin 5 Mg Tablet PO 5 mg DINNER KAY Administration Problem List (Last Reviewed 11/09/20 @ 20:[address] 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 (Acute) Vital Signs Temp Pulse Resp BP Pulse Ox 98.7 F 65 16 122/59 H 98 11/10/20 19:03 11/10/20 19:03 11/10/20 19:03 11/10/20 19:03 11/10/20 19:03 Oxygen Delivery Method Room Air Weight: 96.207 kg Body Mass Index (BMI) 30.4 Sodium 140 mmol/L (136-145) 11/10/20 05:44 Potassium 3.8 mmol/L (3.5-5.1) 11/10/20 05:44 Chloride 107 mmol/L (98-107) 11/10/20 05:44 Carbon Dioxide 25.0 mmol/L (21.0-32.0) 11/10/20 05:44 Anion Gap 8 (5-15) 11/10/20 05:44 BUN 14 mg/dL (7-18) 11/10/20 05:44 Creatinine 0.73 mg/dL (0.70-1.30) 11/10/20 05:44 Est GFR (MDRD) Af Amer 134 mL/min (>60) 11/10/20 05:44 Est GFR (MDRD) Non-Af 110 mL/min (>60) 11/10/20 05:44 BUN/Creatinine Ratio 19.2 RATIO (10-20) 11/10/20 05:44 Glucose 83 mg/dL (74-106) 11/10/20 05:44 Assessment/Plan: 1. Pain: acetaminophen 1000mg PO Q6H PRN pain 1-03/07. Please continue to monitor for increased pain and PRN usage. 2. Cellulitis of left lower extremity: ciprofloxacin 500mg PO BID thru 11/16/20. Please continue to monitor for S/S of infection, renal function, INR, and tendon pain. 3. Iron deficiency anemia: ferrous sulfate 325mg PO DAILYCM. Please continue to monitor for hemoglobin (last 11.4g/dL) and for dark stools. *4. Recurrent DVT: warfarin 5mg PO daily. Please consider adding enoxaparin 100mg SC Q12H for a full bridge until INR is therapeutic. Patient's INR has been 1.1 x 3 days. Thanks. Please continue to monitor for S/S of bleeding/DVT and INR. Psychotropic Medications: None Unnecessary Medications: None Bowel Regimen: Miralax 17gm PO daily PRN constipation, senna/docusate 1T PO BID PRN constipation, and bisacodyl 10mg PO daily PRN constipation. Please continue to monitor for PRN usage and constipation. Date of Note:: 11/11/20
[2020-11-11 16:06] VITALS: BP 104/54; PULSE 72; RESP 16; TEMP 36.3; O2SAT 94
[2020-11-12 05:00] VITALS: BP 112/60; PULSE 74; RESP 18; TEMP 36.8; O2SAT 96
[2020-11-12] MEDS: Ciprofloxacin 500 MG Tablet PO ×2 (05:35→16:52)
[2020-11-12] MEDS: Nystatin Powder 15gm Bottle 1 APPLIC TOPICAL ×2 (05:35→16:52)
[2020-11-12 06:08] LABS: International Normalized Ratio 1.1
[2020-11-12] MEDS: Ferrous Sulfate 325 MG Tablet PO (08:40)
[2020-11-12] MEDS: Aspirin 81 MG TAB.CHEW PO (08:40)
[2020-11-12 16:13] VITALS: BP 151/64; PULSE 74; RESP 16; TEMP 36.3; O2SAT 97
[2020-11-12 22:30] VITALS: RESP 16; O2SAT 98
[2020-11-13 05:00] VITALS: BP 115/83; PULSE 77; RESP 16; TEMP 36.1; O2SAT 97
[2020-11-13 05:52] LABS: International Normalized Ratio 1.2; Prothrombin Time (Protime)PT. 14.7 SECONDS (11.7-14.9)
[2020-11-13] MEDS: Ciprofloxacin 500 MG Tablet PO ×2 (06:30→16:47)
[2020-11-13] MEDS: Nystatin Powder 15gm Bottle 1 APPLIC TOPICAL ×2 (06:30→16:47)
[2020-11-13] MEDS: Ferrous Sulfate 325 MG Tablet PO (08:07)
[2020-11-13] MEDS: Aspirin 81 MG TAB.CHEW PO (08:07)
--- NOTE | 2020-11-13 11:54 | CASEMGMT ---
BIMS and PHQ9 interviews completed on this date for MDS assessment. AMADA Mauricio
[2020-11-13 15:27] VITALS: BP 111/64; PULSE 70; RESP 16; TEMP 36.8; O2SAT 95
[2020-11-14 05:55] VITALS: BP 139/70; PULSE 68; RESP 18; TEMP 36.8; O2SAT 96
[2020-11-14] MEDS: Ciprofloxacin 500 MG Tablet PO ×2 (05:56→17:11)
[2020-11-14] MEDS: Nystatin Powder 15gm Bottle 1 APPLIC TOPICAL ×2 (05:57→17:11)
[2020-11-14] MEDS: Aspirin 81 MG TAB.CHEW PO (08:37)
[2020-11-14] MEDS: Ferrous Sulfate 325 MG Tablet PO (08:37)
[2020-11-14 09:23] LABS: International Normalized Ratio 1.3; Prothrombin Time (Protime)PT. 15.8 SECONDS (11.7-14.9)
--- NOTE | 2020-11-14 11:11 | NURSING ---
dr Weinberg aware of INR 1.3, warfarin increased to 6mg
[2020-11-14] MEDS: Bisacodyl 5 MG Tablet 10 MG PO (13:21)
[2020-11-14 18:42] VITALS: BP 117/67; PULSE 69; RESP 18; TEMP 36.8; O2SAT 97
[2020-11-14 18:45] VITALS: PULSE 69; RESP 18; O2SAT 97
[2020-11-15 05:00] VITALS: BP 121/64; PULSE 70; RESP 18; TEMP 36.4
[2020-11-15] MEDS: Ciprofloxacin 500 MG Tablet PO ×2 (05:51→17:50)
[2020-11-15] MEDS: Nystatin Powder 15gm Bottle 1 APPLIC TOPICAL ×2 (05:52→17:50)
[2020-11-15] MEDS: Aspirin 81 MG TAB.CHEW PO (09:19)
[2020-11-15] MEDS: Ferrous Sulfate 325 MG Tablet PO (09:19)
[2020-11-15 15:51] VITALS: BP 111/56; PULSE 62; RESP 14; TEMP 36.4; O2SAT 97
[2020-11-16] MEDS: Ciprofloxacin 500 MG Tablet PO (06:30)
[2020-11-16] MEDS: Nystatin Powder 15gm Bottle 1 APPLIC TOPICAL ×2 (06:30→16:20)
[2020-11-16] MEDS: Aspirin 81 MG TAB.CHEW PO (08:46)
[2020-11-16] MEDS: Ferrous Sulfate 325 MG Tablet PO (08:46)
[2020-11-16 15:20] VITALS: BP 142/65; PULSE 70; RESP 16; TEMP 36.3; O2SAT 96
[2020-11-16] MEDS: Juven (unflavored) Packet 1 PACKET PO (16:21)
[2020-11-16 22:29] VITALS: PULSE 88; RESP 12
--- NOTE | 2020-11-17 02:18 | NURSING ---
Pt taken to bathroom. Ambulates w/ wheeled walker x 1 assist. This nurse assisted w/ pericare. Difficulty transferring back to bed. Bed alarm in use. Positioned in bed for comfort. BLE elevated on a soft pillow and heels floated. Call light w/ in reach.
[2020-11-17] MEDS: Nystatin Powder 15gm Bottle 1 APPLIC TOPICAL ×2 (05:21→18:06)
[2020-11-17 05:50] LABS: Absolute Lymphocyte Count 1.54 X10^3/uL (0.83-4.51); Absolute Neutrophil Count 3.9 X10^3/uL (2.0-7.7); Basophil# 0.05 X10^3/uL; Basophil% 0.8 % (0-1); Eosinophil# 0.37 X10^3/uL; Eosinophils% 5.7 % (0-5); Hematocrit 34.3 % (40-54); Lymphocyte # 1.54 X10^3/ul (0.83-4.51); Lymphocyte % 23.8 % (19-41); Mean Corp Hgb Conc 32.1 g/dL (32-36); Mean Corpuscular Hgb 29.6 pg (27.0-32.0); Mean Corpuscular Volume 92.2 fL (80-94); Mean Platelet Vol. 8.5 fl (6.2-12.0); Monocyte# 0.54 X10^3/uL; Monocyte% 8.3 % (0-10); NRBC Flagged by Analyzer 0 % (0-5); Neutrophil # 3.94 X10^3/uL (2.7-7.7); Neutrophil % 60.9 % (47-70); Platelet Count 293 K/mm3 (150-450); RBC Distribution Width CV 14.2 % (11.6-14.6); RBC Distribution Width SD 48.3 fl (35.1-43.9); Red Blood Count 3.72 M/mm3 (4.6-6.2); White Blood Count 6.5 K/mm3 (4.4-11.0)
[2020-11-17 06:05] LABS: Anion Gap 4 (5-15); BUN 26 mg/dL (7-18); BUN/Creat Ratio 41.6 RATIO (10-20); Calcium,Total 8.2 mg/dL (8.5-10.1); Chloride 108 mmol/L (98-107); Creatinine, Serum 0.62 mg/dL (0.70-1.30); EST Glomerular Filtration Rate 132 mL/min (>60); Est Glom Filt Rate - Afr Amer 159 mL/min (>60); Estimated Creatinine Clearance 61.85 ml/min; Glucose 84 mg/dL (74-106); Potassium 4.1 mmol/L (3.5-5.1); Sodium Level 140 mmol/L (136-145)
[2020-11-17] MEDS: Ferrous Sulfate 325 MG Tablet PO (08:39)
[2020-11-17] MEDS: Juven (unflavored) Packet 1 PACKET PO ×2 (08:40→18:07)
[2020-11-17] MEDS: Aspirin 81 MG TAB.CHEW PO (08:40)
[2020-11-17] MEDS: Tuberculin,Purif.prot.deriv. 50 TU/ML Vial 0.1 ML ID (12:18)
[2020-11-17 13:46] VITALS: BP 127/64; PULSE 75; RESP 16; TEMP 36.3; O2SAT 96
--- NOTE | 2020-11-17 15:16 | CHAPLAIN ---
Type of Pastoral Visit _x__ Initial Visit ___ Follow-up Visit ___ On-call Visit ___ General Patient Visit ___ Spiritual Assessment ___ Family Conference ___ Bereavement ___ Rapid Response ___ Code Blue ___ Other (describe below) Pastoral Care Referral From _x__ Patient ___ Family ___ Nurse ___ Physician ___ Photographer Still ___ Box Spring Maker ___ Other (describe below) Sacrament/Intervention _x__ Active listening ___ Anointing ___ Zoroastrianism ___ Bereavement ___ Communion ___ Tanya exploration ___ _x__ Life review ___ Prayer ___ Reconciliation ___ Sacrament of Sick _x__ Supportive presence ___ Wedding ___ Other (describe below) Pastoral Comments patient is [place] but continues talking and seemingly enjoys his conversation with this courtroom deputy; pt gives lots of life review of early years, family, and work history; pt hopes to have health improvement; visit ended with ST came for a session
--- NOTE | 2020-11-17 17:18 | NURSING ---
Resident notified of a resident testing positive for COVID. Daughter's mailbox is full.
[2020-11-17 18:41] LABS: International Normalized Ratio 1.6; Prothrombin Time (Protime)PT. 18.5 SECONDS (11.7-14.9)
[2020-11-18] MEDS: Nystatin Powder 15gm Bottle 1 APPLIC TOPICAL ×2 (05:31→17:09)
[2020-11-18 05:35] VITALS: BP 104/58; PULSE 66; RESP 16; TEMP 36.3; O2SAT 94
[2020-11-18] MEDS: Juven (unflavored) Packet 1 PACKET PO ×2 (08:06→17:09)
[2020-11-18] MEDS: Ferrous Sulfate 325 MG Tablet PO (08:06)
[2020-11-18] MEDS: Aspirin 81 MG TAB.CHEW PO (08:06)
--- NOTE | 2020-11-18 09:58 | CASEMGMT ---
Care Plan meeting held today with pt present. Pt is participating in PT/OT/ST and making progress. ST recommending assistance with med set up and finances upon discharge. Pt lives at home alone and plans to return there upon discharge. Pt states his neighbor is helpful in checking on him, assisting with finances and mowing the yard. No discharge date set at this time as pt is still progressing and benefiting from TCU stay. Will continue with current care plan. SW to follow for support and d/c planning. AMADA Mauricio
[2020-11-18 15:21] VITALS: BP 109/56; PULSE 68; RESP 16; TEMP 36.4; O2SAT 97
--- NOTE | 2020-11-18 15:33 | CASEMGMT ---
Social Work SW met with pt and informed him of Medicare coverage. SW explained that Medicare covers 100% of stay for first 20 days on TCU. SW also explained starting on 11/29/20 pt will be responsible for copay. Pt is hopeful to return home by 11/29/20 but if he is not able, he is willing to cover the copay. Pt appreciative of information regarding insurance coverage. AMADA Mauricio
[2020-11-18 23:25] VITALS: PULSE 3; RESP 12
[2020-11-19] MEDS: Nystatin Powder 15gm Bottle 1 APPLIC TOPICAL ×2 (04:55→16:45)
[2020-11-19 06:00] LABS: Prothrombin Time (Protime)PT. 22.2 SECONDS (11.7-14.9)
[2020-11-19 06:53] VITALS: BP 126/61; PULSE 71; RESP 12; TEMP 36.9
[2020-11-19] MEDS: Juven (unflavored) Packet 1 PACKET PO ×2 (09:27→16:44)
[2020-11-19] MEDS: Aspirin 81 MG TAB.CHEW PO (09:27)
[2020-11-19] MEDS: Ferrous Sulfate 325 MG Tablet PO (09:27)
[2020-11-19 10:00] VITALS: PULSE 74; RESP 16; O2SAT 98
[2020-11-19 15:51] VITALS: BP 98/65; PULSE 78; RESP 16; TEMP 36.4; O2SAT 96
[2020-11-19] MEDS: Warfarin 4 MG, Warfarin 3 MG 7 MG PO (16:46)
[2020-11-20 05:00] VITALS: BP 95/45; PULSE 64; RESP 16; TEMP 36.3; O2SAT 94
[2020-11-20] MEDS: Nystatin Powder 15gm Bottle 1 APPLIC TOPICAL ×2 (05:31→16:46)
[2020-11-20] MEDS: Aspirin 81 MG TAB.CHEW PO (08:38)
[2020-11-20] MEDS: Juven (unflavored) Packet 1 PACKET PO ×2 (08:38→16:43)
[2020-11-20] MEDS: Ferrous Sulfate 325 MG Tablet PO (08:38)
--- NOTE | 2020-11-20 11:26 | MDS.RN ---
Information for the mds was obtained from review of the clinical record, interview of resident, staff, and direct observation of resident's care.
[2020-11-20 16:00] VITALS: BP 114/56; PULSE 65; RESP 14; TEMP 36.8; O2SAT 95
[2020-11-20] MEDS: Warfarin 4 MG, Warfarin 3 MG 7 MG PO (16:44)
[2020-11-20 18:57] VITALS: PULSE 65; RESP 14; O2SAT 95
[2020-11-21] MEDS: Nystatin Powder 15gm Bottle 1 APPLIC TOPICAL ×2 (05:06→17:22)
[2020-11-21] MEDS: Aspirin 81 MG TAB.CHEW PO (08:12)
[2020-11-21] MEDS: Ferrous Sulfate 325 MG Tablet PO (08:12)
[2020-11-21] MEDS: Juven (unflavored) Packet 1 PACKET PO ×2 (08:13→17:22)
[2020-11-21 15:59] VITALS: BP 122/55; PULSE 73; RESP 16; TEMP 36.7; O2SAT 98
[2020-11-21] MEDS: Warfarin 4 MG, Warfarin 3 MG 7 MG PO (17:22)
[2020-11-21 20:39] VITALS: PULSE 76; RESP 76; O2SAT 97
[2020-11-22 05:00] VITALS: BP 104/57; PULSE 67; RESP 14; TEMP 36.7; O2SAT 96
[2020-11-22] MEDS: Aspirin 81 MG TAB.CHEW PO (07:39)
[2020-11-22] MEDS: Ferrous Sulfate 325 MG Tablet PO (07:39)
[2020-11-22] MEDS: Juven (unflavored) Packet 1 PACKET PO ×2 (07:40→16:58)
[2020-11-22 16:34] VITALS: BP 112/50; PULSE 65; RESP 16; TEMP 36.8; O2SAT 96
[2020-11-22] MEDS: Warfarin 4 MG, Warfarin 3 MG 7 MG PO (16:57)
[2020-11-22] MEDS: Nystatin Powder 15gm Bottle 1 APPLIC TOPICAL (16:58)
[2020-11-23 05:00] VITALS: BP 96/53; PULSE 63; RESP 14; TEMP 36.2; O2SAT 94
[2020-11-23 05:56] LABS: International Normalized Ratio 2.9; Prothrombin Time (Protime)PT. 29.8 SECONDS (11.7-14.9)
[2020-11-23] MEDS: Ferrous Sulfate 325 MG Tablet PO (08:46)
[2020-11-23] MEDS: Aspirin 81 MG TAB.CHEW PO (08:46)
[2020-11-23] MEDS: Juven (unflavored) Packet 1 PACKET PO ×2 (08:46→16:41)
[2020-11-23 13:05] VITALS: BP 109/56; PULSE 64; RESP 18; TEMP 37; O2SAT 96
[2020-11-23] MEDS: Nystatin Powder 15gm Bottle 1 APPLIC TOPICAL (16:42)
[2020-11-23 21:00] VITALS: RESP 16; O2SAT 97
[2020-11-24] MEDS: Nystatin Powder 15gm Bottle 1 APPLIC TOPICAL ×2 (05:04→16:37)
[2020-11-24 05:52] LABS: Absolute Lymphocyte Count 1.61 X10^3/uL (0.83-4.51); Absolute Neutrophil Count 2.6 X10^3/uL (2.0-7.7); Basophil# 0.06 X10^3/uL; Basophil% 1.1 % (0-1); Eosinophil# 0.44 X10^3/uL; Hematocrit 32.3 % (40-54); Hemoglobin 10.5 g/dL (13.0-16.5); Lymphocyte # 1.61 X10^3/ul (0.83-4.51); Lymphocyte % 29.4 % (19-41); Mean Corp Hgb Conc 32.5 g/dL (32-36); Mean Corpuscular Hgb 29.7 pg (27.0-32.0); Mean Corpuscular Volume 91.5 fL (80-94); Mean Platelet Vol. 9.1 fl (6.2-12.0); Monocyte# 0.74 X10^3/uL; Monocyte% 13.5 % (0-10); NRBC Flagged by Analyzer 0 % (0-5); Neutrophil # 2.62 X10^3/uL (2.7-7.7); Neutrophil % 47.8 % (47-70); Platelet Count 289 K/mm3 (150-450); RBC Distribution Width CV 14.4 % (11.6-14.6); RBC Distribution Width SD 48.3 fl (35.1-43.9); Red Blood Count 3.53 M/mm3 (4.6-6.2); White Blood Count 5.5 K/mm3 (4.4-11.0)
[2020-11-24 06:23] LABS: Anion Gap 6 (5-15); BUN 22 mg/dL (7-18); BUN/Creat Ratio 31.4 RATIO (10-20); Calcium,Total 7.9 mg/dL (8.5-10.1); Chloride 108 mmol/L (98-107); EST Glomerular Filtration Rate 116 mL/min (>60); Est Glom Filt Rate - Afr Amer 140 mL/min (>60); Estimated Creatinine Clearance 61.85 ml/min; Glucose 84 mg/dL (74-106); Potassium 4.1 mmol/L (3.5-5.1); Sodium Level 140 mmol/L (136-145)
[2020-11-24 07:14] VITALS: BP 107/55; PULSE 60; RESP 12; TEMP 36.4
[2020-11-24] MEDS: Aspirin 81 MG TAB.CHEW PO (08:54)
[2020-11-24] MEDS: Juven (unflavored) Packet 1 PACKET PO ×2 (08:54→16:37)
[2020-11-24] MEDS: Ferrous Sulfate 325 MG Tablet PO (08:54)
--- NOTE | 2020-11-24 12:56 | CASEMGMT ---
Social Work Met with patient in room. Patient wishes to continue with further carer and treatment on the TCU past co-pay days and does not express financial concern. Team updated. Will continue to follow. Eladio DEWITT, LARISA
[2020-11-24 14:56] VITALS: PULSE 66; RESP 16; O2SAT 96
[2020-11-24 15:10] VITALS: BP 106/51; PULSE 66; RESP 16; TEMP 36.4; O2SAT 96
[2020-11-25 04:46] VITALS: BP 113/65; PULSE 65; RESP 16; TEMP 36.2; O2SAT 98
[2020-11-25] MEDS: Nystatin Powder 15gm Bottle 1 APPLIC TOPICAL ×2 (04:50→17:17)
[2020-11-25] MEDS: Ferrous Sulfate 325 MG Tablet PO (08:51)
[2020-11-25] MEDS: Juven (unflavored) Packet 1 PACKET PO ×2 (08:51→17:16)
[2020-11-25] MEDS: Aspirin 81 MG TAB.CHEW PO (08:52)
[2020-11-25 18:48] VITALS: BP 112/62; PULSE 72; RESP 18; TEMP 36.9; O2SAT 96
[2020-11-26 05:00] VITALS: BP 102/55; PULSE 66; RESP 16; TEMP 36.9; O2SAT 94
[2020-11-26 06:25] LABS: International Normalized Ratio 3.2; Prothrombin Time (Protime)PT. 31.5 SECONDS (11.7-14.9)
[2020-11-26] MEDS: Nystatin Powder 15gm Bottle 1 APPLIC TOPICAL ×2 (07:14→16:39)
[2020-11-26] MEDS: Juven (unflavored) Packet 1 PACKET PO ×2 (08:16→16:39)
[2020-11-26] MEDS: Aspirin 81 MG TAB.CHEW PO (08:16)
[2020-11-26] MEDS: Ferrous Sulfate 325 MG Tablet PO (08:16)
--- NOTE | 2020-11-26 14:09 | NURSING ---
Resident educated on the COVID Vaccine and has decided that he does not want it.
[2020-11-26 14:36] VITALS: BP 126/69; PULSE 63; RESP 17; TEMP 36.9; O2SAT 98
[2020-11-27 05:00] VITALS: BP 125/68; PULSE 67; RESP 14; TEMP 36.1; O2SAT 93
[2020-11-27] MEDS: Ferrous Sulfate 325 MG Tablet PO (08:24)
[2020-11-27] MEDS: Aspirin 81 MG TAB.CHEW PO (08:24)
[2020-11-27] MEDS: Juven (unflavored) Packet 1 PACKET PO ×2 (08:25→16:07)
[2020-11-27] MEDS: Nystatin Powder 15gm Bottle 1 APPLIC TOPICAL ×2 (08:25→16:08)
[2020-11-27 15:53] VITALS: BP 115/69; PULSE 69; RESP 16; TEMP 36.7; O2SAT 97
[2020-11-28] MEDS: Nystatin Powder 15gm Bottle 1 APPLIC TOPICAL ×2 (05:32→17:21)
[2020-11-28 06:20] VITALS: BP 103/52; PULSE 58; RESP 16; TEMP 36.2; O2SAT 94
[2020-11-28] MEDS: Juven (unflavored) Packet 1 PACKET PO ×2 (08:38→17:21)
[2020-11-28] MEDS: Ferrous Sulfate 325 MG Tablet PO (08:38)
[2020-11-28] MEDS: Aspirin 81 MG TAB.CHEW PO (08:38)
[2020-11-28 15:26] VITALS: BP 112/57; PULSE 68; RESP 18; TEMP 36.6; O2SAT 96
[2020-11-28 22:34] VITALS: PULSE 67; RESP 14
[2020-11-29] MEDS: Nystatin Powder 15gm Bottle 1 APPLIC TOPICAL ×2 (05:17→16:11)
[2020-11-29 06:51] VITALS: BP 115/61; PULSE 71; RESP 12; TEMP 36.4
[2020-11-29] MEDS: Juven (unflavored) Packet 1 PACKET PO ×2 (08:07→16:11)
[2020-11-29] MEDS: Ferrous Sulfate 325 MG Tablet PO (08:07)
[2020-11-29] MEDS: Aspirin 81 MG TAB.CHEW PO (08:07)
[2020-11-29 14:14] VITALS: BP 120/68; PULSE 78; RESP 18; TEMP 36.4; O2SAT 93
[2020-11-29 23:30] VITALS: PULSE 70; RESP 14
[2020-11-30 05:02] LABS: Prothrombin Time (Protime)PT. 30.6 SECONDS (11.7-14.9)
[2020-11-30] MEDS: Nystatin Powder 15gm Bottle 1 APPLIC TOPICAL ×2 (06:10→17:01)
[2020-11-30] MEDS: Ferrous Sulfate 325 MG Tablet PO (08:31)
[2020-11-30] MEDS: Juven (unflavored) Packet 1 PACKET PO ×2 (08:31→17:01)
[2020-11-30] MEDS: Aspirin 81 MG TAB.CHEW PO (08:31)
[2020-11-30 13:43] VITALS: BP 100/66; PULSE 71; RESP 18; TEMP 36; O2SAT 98
[2020-12-01 05:35] LABS: Absolute Lymphocyte Count 1.43 X10^3/uL (0.83-4.51); Absolute Neutrophil Count 2.9 X10^3/uL (2.0-7.7); Basophil# 0.04 X10^3/uL; Basophil% 0.7 % (0-1); Eosinophil# 0.66 X10^3/uL; Eosinophils% 11.3 % (0-5); Hematocrit 32.1 % (40-54); Hemoglobin 10.5 g/dL (13.0-16.5); Lymphocyte # 1.43 X10^3/ul (0.83-4.51); Lymphocyte % 24.5 % (19-41); Mean Corp Hgb Conc 32.7 g/dL (32-36); Mean Corpuscular Hgb 29.8 pg (27.0-32.0); Mean Corpuscular Volume 91.2 fL (80-94); Mean Platelet Vol. 8.9 fl (6.2-12.0); Monocyte# 0.76 X10^3/uL; NRBC Flagged by Analyzer 0 % (0-5); Neutrophil # 2.92 X10^3/uL (2.7-7.7); Neutrophil % 50.2 % (47-70); Platelet Count 256 K/mm3 (150-450); RBC Distribution Width CV 14.3 % (11.6-14.6); RBC Distribution Width SD 47.9 fl (35.1-43.9); Red Blood Count 3.52 M/mm3 (4.6-6.2); White Blood Count 5.8 K/mm3 (4.4-11.0)
[2020-12-01 05:45] VITALS: BP 103/56; PULSE 66; RESP 14; TEMP 36; O2SAT 95
[2020-12-01] MEDS: Nystatin Powder 15gm Bottle 1 APPLIC TOPICAL ×2 (05:45→16:28)
[2020-12-01 05:50] LABS: Anion Gap 5 (5-15); BUN 20 mg/dL (7-18); BUN/Creat Ratio 26.6 RATIO (10-20); Chloride 108 mmol/L (98-107); Creatinine, Serum 0.75 mg/dL (0.70-1.30); EST Glomerular Filtration Rate 107 mL/min (>60); Est Glom Filt Rate - Afr Amer 129 mL/min (>60); Estimated Creatinine Clearance 61.85 ml/min; Glucose 84 mg/dL (74-106); Potassium 4.3 mmol/L (3.5-5.1); Sodium Level 140 mmol/L (136-145)
[2020-12-01] MEDS: Ferrous Sulfate 325 MG Tablet PO (08:05)
[2020-12-01] MEDS: Aspirin 81 MG TAB.CHEW PO (08:05)
[2020-12-01] MEDS: Juven (unflavored) Packet 1 PACKET PO ×2 (08:05→16:28)
[2020-12-01 16:10] VITALS: BP 114/64; PULSE 70; RESP 16; TEMP 36.6; O2SAT 96
[2020-12-02] MEDS: Acetaminophen 500 MG Tablet 1000 MG PO (04:12)
[2020-12-02] MEDS: Nystatin Powder 15gm Bottle 1 APPLIC TOPICAL ×2 (04:13→17:39)
[2020-12-02 05:19] VITALS: BP 109/58; PULSE 64; RESP 16; TEMP 36.9; O2SAT 97
[2020-12-02] MEDS: Aspirin 81 MG TAB.CHEW PO (07:52)
[2020-12-02] MEDS: Ferrous Sulfate 325 MG Tablet PO (07:52)
[2020-12-02] MEDS: Juven (unflavored) Packet 1 PACKET PO ×2 (07:52→17:39)
[2020-12-02 13:10] VITALS: PULSE 67; RESP 18; O2SAT 95
[2020-12-02 16:03] VITALS: BP 100/54; PULSE 67; RESP 18; TEMP 36.9; O2SAT 95
[2020-12-03 05:00] VITALS: BP 103/57; PULSE 65; RESP 16; TEMP 36.2; O2SAT 95
[2020-12-03 05:54] LABS: International Normalized Ratio 2.4; Prothrombin Time (Protime)PT. 25.2 SECONDS (11.7-14.9)
[2020-12-03] MEDS: Nystatin Powder 15gm Bottle 1 APPLIC TOPICAL ×2 (05:54→16:37)
[2020-12-03] MEDS: Ferrous Sulfate 325 MG Tablet PO (08:14)
[2020-12-03] MEDS: Aspirin 81 MG TAB.CHEW PO (08:14)
[2020-12-03] MEDS: Juven (unflavored) Packet 1 PACKET PO ×2 (08:14→16:38)
[2020-12-03 14:22] VITALS: BP 101/51; PULSE 69; RESP 16; TEMP 36.2; O2SAT 94
[2020-12-03 19:49] VITALS: PULSE 72; RESP 16; O2SAT 96
[2020-12-04 05:00] VITALS: BP 100/58; PULSE 68; RESP 16; TEMP 36.5; O2SAT 95
[2020-12-04] MEDS: Juven (unflavored) Packet 1 PACKET PO ×2 (07:58→18:21)
[2020-12-04] MEDS: Aspirin 81 MG TAB.CHEW PO (07:58)
[2020-12-04] MEDS: Ferrous Sulfate 325 MG Tablet PO (07:58)
[2020-12-04 11:55] VITALS: PULSE 78; RESP 18; O2SAT 94
[2020-12-04 15:38] VITALS: BP 114/57; PULSE 65; RESP 16; TEMP 36.2; O2SAT 98
[2020-12-04] MEDS: Nystatin Powder 15gm Bottle 1 APPLIC TOPICAL (18:22)
[2020-12-05 05:00] VITALS: BP 121/67; PULSE 70; RESP 18; TEMP 36.3; O2SAT 95
[2020-12-05] MEDS: Nystatin Powder 15gm Bottle 1 APPLIC TOPICAL ×2 (05:42→16:08)
[2020-12-05] MEDS: Juven (unflavored) Packet 1 PACKET PO ×2 (08:44→16:07)
[2020-12-05] MEDS: Aspirin 81 MG TAB.CHEW PO (08:44)
[2020-12-05] MEDS: Ferrous Sulfate 325 MG Tablet PO (08:44)
[2020-12-05 15:04] VITALS: BP 116/80; PULSE 68; RESP 16; TEMP 36.7; O2SAT 94
[2020-12-05 18:13] VITALS: PULSE 68; RESP 16; O2SAT 94
[2020-12-06 06:14] VITALS: BP 134/67; PULSE 70; RESP 14; TEMP 36.2
[2020-12-06] MEDS: Juven (unflavored) Packet 1 PACKET PO ×2 (08:01→16:08)
[2020-12-06] MEDS: Acetaminophen 500 MG Tablet 1000 MG PO (08:02)
[2020-12-06] MEDS: Aspirin 81 MG TAB.CHEW PO (08:02)
[2020-12-06] MEDS: Ferrous Sulfate 325 MG Tablet PO (08:02)
[2020-12-06 15:25] VITALS: BP 100/54; PULSE 62; RESP 16; TEMP 36.9; O2SAT 96
[2020-12-06] MEDS: Nystatin Powder 15gm Bottle 1 APPLIC TOPICAL (16:09)
[2020-12-06 20:25] VITALS: PULSE 65; RESP 16
[2020-12-07] MEDS: Nystatin Powder 15gm Bottle 1 APPLIC TOPICAL ×2 (05:05→17:04)
[2020-12-07 05:08] VITALS: BP 95/52; PULSE 70; RESP 14; TEMP 36.3; O2SAT 94
[2020-12-07] MEDS: Juven (unflavored) Packet 1 PACKET PO ×2 (08:24→17:03)
[2020-12-07] MEDS: Ferrous Sulfate 325 MG Tablet PO (08:24)
[2020-12-07] MEDS: Aspirin 81 MG TAB.CHEW PO (08:24)
[2020-12-07 11:55] VITALS: PULSE 62; RESP 18; O2SAT 96
[2020-12-07 14:28] VITALS: BP 117/51; PULSE 68; RESP 16; TEMP 36.3; O2SAT 97
--- NOTE | 2020-12-07 20:01 | PN.TCU_ITS ---
Subjective Subjective Resident seen, examined today for regulatory visit. He has no new problems, concerns, issues, complaints. He has a tangential conversation with me, he does not listen during our conversation. Objective Data Objective Data Vital Signs: Vital Signs Temp Pulse Resp BP Pulse Ox 97.4 F L 68 16 117/51 L 97 12/07/20 14:28 12/07/20 14:28 12/07/20 14:28 12/07/20 14:28 12/07/20 14:28 Oxygen Flow Rate (L/min) 96 Oxygen Delivery Method Room Air Weight: 104.071 kg Body Mass Index (BMI) 30.4 Intake & Output: Intake and Output for Last 24 Hours 12/05/20 12/06/20 12/07/20 23:59 23:59 23:59 Intake Total 600 / 600 720 / 720 1320 / 1320 Balance 600 / 600 720 / 720 1320 / 1320 Lab / Micro Data Result Diagrams: 12/01/20 05:20 12/01/20 05:20 Micro: Microbiology 11/24/20 14:15 Nasal Secretion SARS-CoV-2 Antigen (Rapid) - Final 11/18/20 11:30 Interface Orders SARS-CoV-2 Antigen (Rapid) - Final 11/11/20 12:00 Mucosa - Nose SARS-CoV-2 Antigen (Rapid) - Final Physical Exam Const alert and oriented x3 General Appearance: cooperative HEENT normocephalic Eyes PERRL and EOMs intact bilaterally Neck supple, no JVD and no carotid bruits Resp normal respiratory effort, normal air movement and clear to auscultation bilaterally Cardio regular rate and regular rhythm GI normal to inspection, nondistended, normoactive bowel sounds, non-tender and non-distended Extremity normal capillary refill Extremity Narrative: Left lower extremity dressed. 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 * Debility - PT/OT. * Cognition - ST. * Pain - Tylenol 1000MG Q6H PRN pain (1-10). * Bowel - Miralax 17GM daily PRN, Senna/colace 1 tablet BID PRN, Dulcolax 10MG daily PRN. * Adult immunization - Administer Prevnar 13, Pneumovax 23, Fluzone, COVID19 vaccine as appropriate. * DVT prophylaxis - Not necessary, on warfarin. * Left lower extremity wound - Consult wound nurse. * Iron deficiency anemia - Ferrous sulfate 325MG daily. * Tinea Corporis - Nystatin powder topical BID. * Recurrent DVT - Warfarin 5MG daily, INR 2.4. * Nutrition - Manohar 1 packet BID. Capacity Capacity Assessment Tool Can the patient make a choice & communicate that choice?: Yes Can the patient understand benefits, risks and alternatives?: Yes Can the patient make a logical, rational choice?: Yes Is the choice the patient makes consistent w/ their values?: Yes Is there an impending, emergent risk to the patient?: No Does the patient have an Advance Directive?: No Is there a Surrogate Available?: Yes i.e. HCPOA: Yes i.e. close relative (spouse, child, parent, sibling)?: Yes
[2020-12-07 21:25] LABS: International Normalized Ratio 2.1; Prothrombin Time (Protime)PT. 22.4 SECONDS (11.7-14.9)
[2020-12-08 05:00] VITALS: BP 98/58; PULSE 72; RESP 14; TEMP 36.2; O2SAT 97
[2020-12-08 05:38] LABS: Absolute Lymphocyte Count 1.67 X10^3/uL (0.83-4.51); Basophil# 0.04 X10^3/uL; Basophil% 0.7 % (0-1); Eosinophil# 0.48 X10^3/uL; Hematocrit 33.3 % (40-54); Hemoglobin 10.6 g/dL (13.0-16.5); Lymphocyte # 1.67 X10^3/ul (0.83-4.51); Lymphocyte % 27.8 % (19-41); Mean Corp Hgb Conc 31.8 g/dL (32-36); Mean Corpuscular Hgb 29.1 pg (27.0-32.0); Mean Corpuscular Volume 91.5 fL (80-94); Mean Platelet Vol. 9.1 fl (6.2-12.0); Monocyte# 0.76 X10^3/uL; Monocyte% 12.6 % (0-10); NRBC Flagged by Analyzer 0 % (0-5); Neutrophil # 3.04 X10^3/uL (2.7-7.7); Neutrophil % 50.6 % (47-70); Platelet Count 220 K/mm3 (150-450); RBC Distribution Width CV 14.1 % (11.6-14.6); RBC Distribution Width SD 47.9 fl (35.1-43.9); Red Blood Count 3.64 M/mm3 (4.6-6.2)
[2020-12-08 05:54] LABS: Anion Gap 4 (5-15); BUN 26 mg/dL (7-18); BUN/Creat Ratio 32.9 RATIO (10-20); Calcium,Total 8.1 mg/dL (8.5-10.1); Chloride 109 mmol/L (98-107); Creatinine, Serum 0.79 mg/dL (0.70-1.30); EST Glomerular Filtration Rate 100 mL/min (>60); Est Glom Filt Rate - Afr Amer 122 mL/min (>60); Estimated Creatinine Clearance 61.85 ml/min; Glucose 83 mg/dL (74-106); Potassium 3.8 mmol/L (3.5-5.1); Sodium Level 141 mmol/L (136-145)
[2020-12-08] MEDS: Juven (unflavored) Packet 1 PACKET PO ×2 (08:02→16:59)
[2020-12-08] MEDS: Ferrous Sulfate 325 MG Tablet PO (08:02)
--- NOTE | 2020-12-08 11:40 | CASEMGMT ---
Addendum entered by Neetu Harding 12/08/20 13:05: Telephone call to Maddi HOANG. Maddi updated on patient discharge date and plan. Original Note: Social Work Met with patient in room. This adoption social worker communicated that discharge date has been set for 12/12/2020. Patient is agreeable to discharge date. Patient plans to discharge to home alone. This adoption social worker communicated that team is recommending for patient to have continued home health service for physical, occupational, and speech therapy as well as senior care and a home health aide. Patient is agreeable to recommendation and requests for home health services to be set up through [facility]. Patient is currently receiving daily wound care. Patient denies having anyone that is able to assist with wound care in the home. Nursing to explore status of current wound and clarify if wound care is to continue to be daily. This adoption social worker inquired about durable medical equipment needs for patient. Patient reports to need a front wheeled walker. Patient does not have a preference of [employer] medical equipment [employer], [employer] to be utilized. Patient request for this adoption social worker to contact patient neighbor, Jack in regards to discharge date. Patient reports that Jack will provide transportation to home for patient. Patient with no further questions. Telephone call to [facility] Rosa Isela RODARTE. Referral made for Physical, Occupational, and Speech therapy as well as a home health aide and senior care. Rosa Isela confirms that home health is not able to do daily dressing changes. This adoption social worker communicated that nursing staff on the TCU is looking into current status of wounds and wound care orders at discharge. Rosa Isela will need to know status of wound care before being able to accept patient. Order for front wheeled walker placed in Dr. Weinberg's folder to be signed. Telephone call to Jack Santiago confirms to be able to pick patient up at time of discharge. Jack is not able to assist with wound care. Proposed discharge date: 12/12/2020 Disposition: Home alone with home health care. LARISA Napier
[2020-12-08 13:56] VITALS: BP 115/72; PULSE 75; RESP 18; TEMP 36.2; O2SAT 95
[2020-12-08] MEDS: Nystatin Powder 15gm Bottle 1 APPLIC TOPICAL (16:59)
--- NOTE | 2020-12-08 21:09 | DS.PCM_ITS ---
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: Status: Acute Code(s): L97.902 - Non-pressure chronic ulcer of unspecified part of unspecified lower leg with fat layer exposed Qualifiers: Laterality: left Qualified Code(s): L97.922 - Non-pressure chronic ulcer of unspecified part of left lower leg with fat layer exposed (5) Cellulitis of left lower extremity: Status: Acute Code(s): L03.116 - Cellulitis of left lower limb (6) Syncope: Status: Acute Code(s): R55 - Syncope and collapse (7) Encephalopathy: Status: Acute Code(s): G93.40 - Encephalopathy, unspecified (8) Venous stasis dermatitis: Status: Acute Code(s): I87.2 - Venous insufficiency (chronic) (peripheral) (9) Iron deficiency anemia: Status: Acute Code(s): D50.9 - Iron deficiency anemia, unspecified (10) DVT (deep venous thrombosis): Status: Acute Code(s): I82.409 - Acute embolism and thrombosis of unspecified deep veins of unspecified lower extremity Medications at Discharge Home Medications ferrous sulfate [Iron (ferrous sulfate)] 325 mg PO DAILY 07/27/16 acetaminophen 1,000 mg PO Q6H PRN PRN #0 tab 12/08/20 [id number] [Manohar (with collagen)] 1 packet PO BIDCM 30 Days #60 ea 12/08/20 warfarin 5 mg PO DAILY 30 Days #30 tab 12/08/20 Hospital Course Operations None Procedures None Summary of Care Provided Minutes Spent on Discharge: 35 Hospital Course: 80 year old male with below past medical history hospitalized for cellulitis left lower extremity, left leg wounds, complicated by syncope, encephalopathy, admitted to TCU with debility, here for rehabilitation, str engthening, wound care, prior to discharge home alone. Discharge home alone 12/12/2020, [facility] PT/OT/ST/SN/ENRIQUE, [employer] Front wheeled walker. Physical Exam Const alert and oriented x3 General Appearance: cooperative HEENT normocephalic Eyes PERRL and EOMs intact bilaterally Neck supple, no JVD and no carotid bruits Resp normal respiratory effort, normal air movement and clear to auscultation bilaterally Cardio regular rate and regular rhythm GI normal to inspection, nondistended, normoactive bowel sounds, non-tender and non-distended Extremity normal capillary refill General Extremity: Negative for edema Skin no rashes or lesions noted General Skin Exam: no breakdown Psych affect normal Appearance: appropriate Weight / BMI Weight Weight: 105.233 kg Body Mass Index (BMI) 30.4 ABG / Lab / Microbiology Data Result Diagrams: 12/08/20 05:24 12/08/20 05:24 Laboratory: Laboratory Results - last 24 hr 12/07/20 20:30: PT 22.4 H, INR 2.1 12/08/20 05:24: WBC 6.0, RBC 3.64 L, Hgb 10.6 L, Hct 33.3 L, MCV 91.5, MCH 29.1, MCHC 31.8 L, RDW Std Deviation 47.9 H, RDW Coeff of Regi 14.1, Plt Count 220, MPV 9.1, Immature Gran % (Auto) 0.300, Neut % (Auto) 50.6, Lymph % (Auto) 27.8, [place] % (Auto) 12.6 H, Eos % (Auto) 8.0 H, Baso % (Auto) 0.7, Absolute Neuts (auto) 3.0, Absolute Lymphs (auto) 1.67, Nucleated RBC % 0 12/08/20 05:24: Sodium 141, Potassium 3.8, Chloride 109 H, Carbon Dioxide 28.0, Anion Gap 4 L, BUN 26 H, Creatinine 0.79, Estim Creat Clear Calc 61.85, Est GFR (MDRD) Af Amer 122, Est GFR (MDRD) Non-Af 100, BUN/Creatinine Ratio 32.9 H, Glucose 83, Calcium 8.1 L Microbiology: Microbiology 11/24/20 14:15 Nasal Secretion SARS-CoV-2 Antigen (Rapid) - Final 11/18/20 11:30 Interface Orders SARS-CoV-2 Antigen (Rapid) - Final 11/11/20 12:00 Mucosa - Nose SARS-CoV-2 Antigen (Rapid) - Final D/C Instructions Discharge Diet: No restrictions Discharge Activity: Return to Normal Activity, May Shower and Use Walker Weight Bearing Status: Weight bearing as tolerated Call your doctor if you observe: Fever of 101 or Higher, Inability to urinate, Inability to have a bowel movement, Shortness of breath, Dizziness, Fainting spells, Swelling in the ankles, Chest pain, Increased palpitations (irregular heartbeat) and Uncontrolled pain Additional Instructions: Discharge home alone 12/12/2020, [facility] PT/OT/ST/SN/ENRIQUE, [employer] Front wheeled walker. Please Follow Up With: Joey Weinberg Chi, MD When: 1 week. Meaningful Use Info Meaningful Use Diagnoses (Choose all that apply): None applicable Discharge Plan Admission Admit Date/Time: 11/09/20 15:44 Primary Reason for Your Visit: Debility Attending Provider: Joey Weinberg Chi Primary Care Provider: [facility] Instructions Additional Instructions / Restrictions: Discharge home alone 12/12/2020, [facility] PT/OT/ST/SN/ENRIQUE, [employer] Front wheeled walker. Discharge Orders/Prescriptions Prescriptions: New acetaminophen 500 mg Tablet 1,000 mg PO Q6H PRN PRN (Reason: Pain Score 1-10) Qty: 0 RF: 0 Manohar (with collagen) 7-7-1.5 gram Powder In Packet 1 packet PO BIDCM 30 Days Qty: 60 RF: 0 Continued ferrous sulfate [Iron (ferrous sulfate)] 325 MG tablet 325 mg PO DAILY RF: 0 warfarin 5 mg tablet 5 mg PO DAILY 30 Days Qty: 30 RF: 0 Discontinued aspirin 81 MG tablet,chewable 81 mg PO DAILY@0800 RF: 0 ciprofloxacin HCl [Cipro] 500 mg tablet 500 mg PO BID RF: 0 enoxaparin [Lovenox] 40 mg/0.4 mL syringe 40 mg subcut DAILY RF: 0 Referrals / Follow Up: Joey Weinberg Chi, MD [COURTESY STAFF PHYSICIAN] - In 1 Week Disposition Disposition (needs filled in before D/C Order can be placed): Home Health Service
--- NOTE | 2020-12-09 04:43 | NURSING ---
Left vm for social sciences professor this feels pt will not engage in dressing changes at home. Pt has this nurse adjust sock after dressing change and did not offer to or express any desire to assist with wound care. Question if pt's neighbor/friend listed in a previous note would be able to transport pt to [facility] on alternate days of home care visits, once arranged, or if the [facility] can offer [facility] skill[facility] services that will include daily dressing changes. Plan to update oncoming nurse.
[2020-12-09 06:17] VITALS: BP 115/66; PULSE 70; RESP 16; TEMP 36.8; O2SAT 96
[2020-12-09] MEDS: Nystatin Powder 15gm Bottle 1 APPLIC TOPICAL ×2 (06:18→17:37)
[2020-12-09] MEDS: Juven (unflavored) Packet 1 PACKET PO ×2 (07:56→17:37)
[2020-12-09] MEDS: Ferrous Sulfate 325 MG Tablet PO (07:56)
--- NOTE | 2020-12-09 10:50 | CASEMGMT ---
Social Work Order for front wheeled walker faxed to [employer]. Walker to be delivered to patient room prior to discharge. Proposed discharge date: 12/12/2020. Eladio DEWITT, LARISA
--- NOTE | 2020-12-09 11:52 | NURSING ---
wound photo: left medial lower leg/ankle
--- NOTE | 2020-12-09 14:14 | CASEMGMT ---
Social Work Brief interview for mental status (BIMS) and resident mood assessment (PHQ-9) completed on this day. Eladio DEWITT, EAGLES
--- NOTE | 2020-12-09 14:16 | CASEMGMT ---
Addendum entered by Neetu Harding 12/09/20 14:54: Telephone call from Vick Rousseau. Vick reports to be able to accept patient. Original Note: Social Work Telephone call from [facility] Rosa Isela RODARTE. Rosa Isela reports to be at capacity and unable to accept patient. Met with patient in room. Patient looking over home health list again, patient request for home health care to be set up through [facility]. This psychologist social also inquired about [facility] services for patient as patient is a . Patient is agreeable to this psychologist social completing GEC (application for help in the home). This psychologist social inquired about food in the home for patient. Patient reports to have needed food already in the home and that patient neighbor is able to assist with food/groceries. Telephone call to Vick Rousseau. Referral for PT/OT/INSTRUMENTAL MUSICIAN/SN/COMMERCIAL BAKER HELPER. Order faxed as well as clinical information. GEC form completed and faxed to Gregory at the [facility]. Proposed discharge date: 12/12/2020. LARISA Napier
[2020-12-09 14:25] VITALS: BP 115/61; PULSE 89; RESP 18; TEMP 36.3; O2SAT 90
--- NOTE | 2020-12-09 15:53 | CHAPLAIN ---
Type of Pastoral Visit ___ Initial Visit _x__ Follow-up Visit ___ On-call Visit ___ General Patient Visit ___ Spiritual Assessment ___ Family Conference ___ Bereavement ___ Rapid Response ___ Code Blue ___ Other (describe below) Pastoral Care Referral From _x__ Patient ___ Family ___ Nurse ___ Physician ___ Delicatessen Clerk ___ Dairy Nutrition Specialist ___ Other (describe below) Sacrament/Intervention _x__ Active listening ___ Anointing ___ Worship ___ Bereavement ___ Communion ___ Tanya exploration ___ ___ Life review ___ Prayer ___ Reconciliation ___ Sacrament of Sick ___ Supportive presence ___ Wedding ___ Other (describe below) Pastoral Comments
[2020-12-10] MEDS: Nystatin Powder 15gm Bottle 1 APPLIC TOPICAL ×2 (06:03→17:22)
[2020-12-10 06:04] VITALS: BP 103/62; PULSE 65; RESP 16; TEMP 37.1; O2SAT 94
[2020-12-10] MEDS: Ferrous Sulfate 325 MG Tablet PO (07:56)
[2020-12-10] MEDS: Juven (unflavored) Packet 1 PACKET PO ×2 (07:57→17:22)
--- NOTE | 2020-12-10 09:46 | CASEMGMT ---
Social Work SW spoke with Loi from [facility]. A SW from [place] will reach out to pt once he gets home to assess for in home needs. Pt updated and agreeable. AMADA Mauricio
--- NOTE | 2020-12-10 13:23 | MDS.RN ---
completed pain interview for MICHELLE 12/12/20
[2020-12-10 14:24] VITALS: BP 122/66; PULSE 72; RESP 16; TEMP 36.2; O2SAT 98
[2020-12-10 20:40] LABS: International Normalized Ratio 2.1; Prothrombin Time (Protime)PT. 22.7 SECONDS (11.7-14.9)
[2020-12-10 21:38] VITALS: PULSE 74; RESP 14
[2020-12-11] MEDS: Nystatin Powder 15gm Bottle 1 APPLIC TOPICAL ×2 (06:14→17:28)
[2020-12-11 06:20] VITALS: BP 102/47; PULSE 65; RESP 14; TEMP 36.5
[2020-12-11] MEDS: Juven (unflavored) Packet 1 PACKET PO ×2 (07:38→17:26)
[2020-12-11] MEDS: Ferrous Sulfate 325 MG Tablet PO (07:38)
[2020-12-11 13:28] VITALS: BP 103/54; PULSE 64; RESP 18; TEMP 36.3; O2SAT 98
[2020-12-11 21:12] VITALS: PULSE 65; RESP 16; O2SAT 96
[2020-12-12 04:50] VITALS: BP 123/62; PULSE 67; RESP 14; TEMP 36.3; O2SAT 97
[2020-12-12] MEDS: Juven (unflavored) Packet 1 PACKET PO (08:07)
[2020-12-12] MEDS: Ferrous Sulfate 325 MG Tablet PO (08:07)
[2020-12-12 14:12] VITALS: BP 131/60; PULSE 68; RESP 14; TEMP 36.2; O2SAT 98
--- NOTE | 2020-12-12 17:44 | CASEMGMT ---
DAHLIA Note SW Referral Source: TCU steeping press operator Reason: Patient is scheduled for discharge and has not received his DME SW was called by TCU RN who indicated patient was scheduled for discharge however had not received his DME. DAHLIA reviewed chart and noted that DAHLIA had faxed the referral on 12/09 to [facility]. DAHLIA called Emergency Line number for [facility] and advised of the need for the DME. SW made referral to [facility] for the DME. SW received call from Emilio at [facility]. He advised he would be in to deliver equipment in 1 hour for patient. DAHLIA updated TCU RN. No further SW needs identified or voiced at this time. Plan: Home with DME Madonna PEDERSEN
== END 2020-12-12 16:30 | disposition home health service (06) | DRG 603 ==
PROVIDERS: Admitting Provider Family Medicine Geriatric Medicine; Visit Provider Family Medicine Geriatric Medicine
DX: L03.116 Cellulitis of left lower limb (principal); L97.221 Non-pressure chronic ulcer of left calf limited to breakdown of skin; I89.0 Lymphedema, not elsewhere classified; D50.9 Iron deficiency anemia, unspecified; Z23 Encounter for immunization; B35.4 Tinea corporis; I87.2 Venous insufficiency (chronic) (peripheral); Z79.899 Other long term (current) drug therapy; Z79.01 Long term (current) use of anticoagulants; Z86.718 Personal history of other venous thrombosis and embolism; Z79.82 Long term (current) use of aspirin
CPT/HCPCS: 36415; 80048; 85025; 85610; 87426; 87635; 92507; 92523; 92610; 97110; 97116; 97162; 97166; 97530; 97535; G0008; G0009; U0005; 90670; 90686; U0003

== ENCOUNTER 2020-12-25 15:18 | Emergency (ER) | payer OTHER, MEDICARE, SELFPAY ==
[2020-12-25 15:20] VITALS: BP 159/124; PULSE 89; RESP 14; TEMP 36.8; O2SAT 94; BMI 32.3
--- NOTE | 2020-12-25 17:44 | EDS_ITS ---
HPI HPI - Fall History of Present Illness Chief Complaint: Fall Informant: patient Narrative Narrative: Patient is a 80-year-old male who presents to the emergency department for bruising to his low back. He states that he had a fall around 5 or 6 days ago. He just pushed on the area and noticed that there was a lump there. His home health health care marketing manager thought he would need some imaging to determine what happened. Patient denies any significant pain. Is been ambulating without difficulty. He denies any blood in the urine. No abdominal pain. No chest pain or shortness of breath. Patient is on Coumadin with a history of DVTs. He denies any pain going down his legs. No change in bowel movements. No saddle anesthesia. He denies any fevers or chills. PFSH PFSH Home Medications ferrous sulfate [Iron (ferrous sulfate)] 325 mg PO DAILY 07/27/16 [History Last Taken Unknown] acetaminophen 1,000 mg PO Q6H PRN PRN #0 tab 12/08/20 [Rx Last Taken Unknown] [id number] [Manohar (with collagen)] 1 packet PO BIDCM 30 Days #60 ea 12/08/20 [Rx Last Taken Unknown] warfarin 5 mg PO DAILY 30 Days #30 tab 12/08/20 [Rx Last Taken Unknown] Allergy/AdvReac Type Severity Reaction Status Date / Time vancomycin Allergy Anaphylaxis Verified 12/25/20 15:20 Social History household members: none Smoking Status: Never smoker substance use type: does not use ROS ROS ED Constitutional Constitutional ED: Denies chills or fever(s) Eyes Eyes: Denies change in vision ENT ENT ED: Denies epistaxis Cardiovascular Cardiovascular: Denies chest pain Respiratory/Chest Respiratory/Chest: Denies cough, dyspnea or dyspnea on exertion Gastrointestinal Gastrointestinal: Denies abdominal pain, diarrhea, nausea or vomiting Genitourinary Genitourinary ED: Denies dysuria, hematuria or urinary frequency Musculoskeletal Musculoskeletal: Denies back pain or neck pain Integumentary Reports other Details: Bruising ; Denies rash Neurologic Neurologic: Denies dizziness, headache(s) or weakness Hematologic/Lymphatic Hematologic/Lymphatic: Reports easy bruising EXAM Physical Exam Const Vital Signs: 07/30/21 15:20 Temperature 98.2 F Temperature Source Temporal Pulse Rate 89 Respiratory Rate 14 Blood Pressure 159/124 H Blood Pressure Mean 135 Pulse Ox 94 Oxygen Delivery Method Room Air Positive well nourished and well developed General Appearance ED: well developed and NAD HEENT Reports normocephalic, head/scalp atraumatic and moist mucous membranes Eyes PERRL and EOMs intact bilaterally Neck supple General: Negative for tenderness Chest Wall inspection of chest normal Resp normal respiratory effort and clear to auscultation bilaterally Auscultation: Negative for rales, rhonchi or wheezes Cardio regular rate, regular rhythm and no murmurs GI normal to inspection, nondistended, normoactive bowel sounds and non-tender Palpation: soft; Negative for guarding or rebound tenderness present Back/Spine no CVA tenderness Extremity normal to inspection Extremity Narrative: No midline spine tenderness or step-off sign. No pain with palpation of extremities. General Extremety ED: Negative for edema or tenderness General Extremity: Negative for edema Neuro no sensory deficits noted Sensorium / Orientation: alert Motor Exam: strength 5/5 throughout Psych mental status grossly normal Skin Skin Narrative: Area of ecchymosis surrounding the left iliac crest posteriorly. No significant tenderness. There is some induration with likely small hematoma present. No significant tenderness over the site. No surrounding evidence of infection. MDM MDM MDM Narrative Medical decision making narrative: Patient presents the ED for bruising from a fall around 5 days ago. Upon arrival to the ED is mildly hypertensive but otherwise normal vital signs. He is no acute distress. Up ambulating around the ED without difficulty. Patient is on Coumadin. Home health health care marketing manager was concerning he could have injured his kidney. Patient denies any blood in his urine. The bruising is posterior to the kidney region. This I do not feel imaging is necessary. He has no pain over the site. Likely just a small hematoma with bruising surrounding the site from the fall 5 days ago. He is doing well otherwise. This time I do recommend just observing the area. Return precautions are reviewed with him. He is to follow-up with his PCP. He understands and is agreeable this plan. All questions were answered. Discharge Plan Triage Chief Complaint: Fall ED Provider: Philipp Jimenez Dx/Rx/DC Orders Clinical Impression: Contusion Instructions: Bruises (Contusions) Prescriptions: No Action ferrous sulfate [Iron (ferrous sulfate)] 325 MG tablet 325 mg PO DAILY RF: 0 acetaminophen 500 mg Tablet 1,000 mg PO Q6H PRN PRN (Reason: Pain Score 1-10) Qty: 0 RF: 0 Manohar (with collagen) 7-7-1.5 gram Powder In Packet 1 packet PO BIDCM 30 Days Qty: 60 RF: 0 warfarin 5 mg tablet 5 mg PO DAILY 30 Days Qty: 30 RF: 0 [facility] Provider[facility] - 5-7 Days Disposition Disposition: Home, Self Care
[2020-12-25 18:10] VITALS: BP 149/91; PULSE 87; RESP 18; O2SAT 94
== END 2020-12-25 18:10 | disposition home or self-care (01) ==
LOC: ED 17:52
PROVIDERS: Emergency Provider Emergency Medicine
DX: S30.0XXA Contusion of lower back and pelvis, initial encounter (principal); Z79.01 Long term (current) use of anticoagulants; Z86.718 Personal history of other venous thrombosis and embolism; W18.30XA Fall on same level, unspecified, initial encounter; Y93.89 Activity, other specified; Y92.009 Unspecified place in unspecified non-institutional (private) residence as the place of occurrence of the external cause; Y99.8 Other external cause status
CPT/HCPCS: 99282

== ENCOUNTER 2021-02-17 16:17 | Emergency (ER) | payer OTHER, MEDICARE, SELFPAY ==
[2021-02-17 16:18] VITALS: BP 134/95; PULSE 76; RESP 18; TEMP 36.6; O2SAT 100; BMI 31.7
[2021-02-17 16:56] VITALS: BP 179/78; PULSE 64; RESP 14; TEMP 36.7
--- NOTE | 2021-02-17 17:19 | ED.VIS.LOWEX ---
HPI History of Present Illness Chief Complaint: Edema Detail of Chief Complaint: Swelling to lower extremities and redness Informant: patient Narrative Narrative: Patient presents to the emergency department complaining of increased redness to both lower extremities that his visiting nurses noted. They advised him to get evaluated. Patient states that he had some blood on his right lower extremity today related to some wounds he has had on his leg. Patient denies any fever or chills. He denies chest pain or shortness of breath. Patient has history of chronic lymphedema. Patient has history of chronic wounds to both lower extremities. PFSH PFSH Home Medications ferrous sulfate [Iron (ferrous sulfate)] 325 mg PO DAILY 07/27/16 [History Last Taken Unknown] warfarin 5 mg PO DAILY 30 Days #30 tab 12/08/20 [Rx Last Taken Unknown] Allergy/AdvReac Type Severity Reaction Status Date / Time vancomycin Allergy Anaphylaxis Verified 02/17/21 16:20 Social History household members: none Smoking Status: Never smoker substance use type: does not use ROS ROS ED Constitutional Constitutional ED: Reports systems reviewed and no addt'l complaints, except as documented; Denies body ache(s), change in weight or chills Eyes Eyes: Denies acute decrease in peripheral vision, change in vision, double vision or loss of vision ENT ENT ED: Reports none; Denies ear pain, lip swelling, loss taste/smell, neck pain, otalgia or sore throat Cardiovascular Cardiovascular: Reports none; Denies abdominal pain, chest pain with activity, leg edema, lightheadedness, palpitations, rapid heart rate or syncope Respiratory/Chest Respiratory/Chest: Reports none; Denies change in mental status, dry cough, dyspnea, hemoptysis, shortness of breath at rest or shortness of breath with exertion Gastrointestinal Gastrointestinal: Reports none; Denies abdominal pain, change in stool character, diarrhea, hematemesis, hematochezia, melena, rectal bleeding or vomiting Genitourinary Genitourinary ED: Reports none; Denies abdominal discomfort, anuria, dysuria, genital pain or polyuria Musculoskeletal Musculoskeletal: Reports none; Denies arthralgias, back pain, difficulty walking, extremity pain, muscle weakness or myalgias Integumentary Reports none and other Details: Redness and swelling to both lower extremities ; Denies abscess or rash Neurologic Neurologic: Reports none; Denies abnormal gait, confusion, focal weakness, frequent falls, headache(s), loss of vision, numbness, paresthesias, radicular pain, vertigo or weakness Psychiatric Psychiatric: Reports systems reviewed and no addt'l complaints, except as documented and none; Denies behavioral changes, confusion, difficulty concentrating, hallucinations, suicidal ideation, tactile hallucinations or visual hallucinations Endocrine Endocrinology: Denies none, cold intolerance, excessive sweating, fatigue or heat intolerance Hematologic/Lymphatic Hematologic/Lymphatic: Reports none; Denies anemia, easy bleeding or easy bruising Allergic/Immunologic Allergic/Immunologic ED: Denies as per HPI, none, lip swelling, mouth swelling, throat swelling, tongue swelling or hives EXAM Physical Exam Const Vital Signs: 02/17/21 16:18 02/17/21 16:56 02/17/21 17:43 Temperature 97.8 F 98.0 F 97.8 F Temperature Source Temporal Temporal Temporal Pulse Rate 76 64 64 Respiratory Rate 18 14 16 Respiratory Effort Respiratory Pattern Blood Pressure 134/95 H 179/78 H 136/76 H Blood Pressure Mean 108 111 96 Pulse Ox 100 95 Oxygen Delivery Method Room Air Room Air Room Air 02/17/21 18:04 Temperature Temperature Source Pulse Rate Respiratory Rate Respiratory Effort Normal Respiratory Pattern Normal Blood Pressure Blood Pressure Mean Pulse Ox Oxygen Delivery Method Positive well nourished and well developed General Appearance ED: well developed and NAD HEENT Reports TM's clear and moist mucous membranes normocephalic and atraumatic; Negative for trauma or tenderness Tympanic Membrane ED: Yes TM's clear Eyes PERRL and EOMs intact bilaterally General Eye ED: Negative for pale conjunctiva or scleral icterus Neck no lymphadenopathy, supple and no JVD General: Negative for tenderness Chest Wall inspection of chest normal and palpation of chest normal Chest: Negative for tenderness Resp normal respiratory effort and clear to auscultation bilaterally Effort and Inspection: Negative for respiratory distress or pain with movement Auscultation: Negative for rhonchi, wheezes or diminished lung sounds Cardio regular rate, regular rhythm, S1 normal heart sound, S2 normal heart sound and no murmurs Peripheral Pulses: pulses 2+ throughout GI normal to inspection, nondistended, normoactive bowel sounds, soft to palpation, non-tender, non-distended and no masses Back/Spine no CVA tenderness and no thoracic nor lumbar tenderness Extremity Extremity Narrative: Evaluation of both lower extremities does reveal lymphedema with chronic wounds to both lower extremities. No significant areas of cellulitis noted. No erythema or warmth noted. There is no active bleeding from any other wounds. Neurovascularly intact. General Extremety ED: Yes edema General Extremity: edema Neuro oriented x3, CN's II-XII intact bilaterally, no sensory deficits noted and gait normal Sensorium / Orientation: awake, alert, oriented to person, oriented to place and oriented to time Motor Exam: strength 5/5 throughout and strength abnormal Psych mental status grossly normal Skin no rashes or lesions noted and no wounds MDM MDM MDM Narrative Medical decision making narrative: Patient's work-up unremarkable in the emergency department. At this point there is no indication for antibiotics. Patient looks well and feels well. He is advised to follow-up with his primary care physician in 3 to 5 days. Lab Data Attestation: I reviewed the patient's lab results. Labs: Laboratory Results - last 24 hr 02/17/21 02/17/21 02/17/21 17:33 17:33 17:33 WBC 7.2 RBC 4.31 L Hgb 12.6 L Hct 39.1 L MCV 90.7 MCH 29.2 MCHC 32.2 RDW Std Deviation 44.2 H RDW Coeff of Regi 13.2 Plt Count 292 MPV 9.0 Immature Gran % (Auto) 0.100 Neut % (Auto) 62.1 Lymph % (Auto) 20.9 [place] % (Auto) 11.6 H Eos % (Auto) 4.7 Baso % (Auto) 0.6 Absolute Neuts (auto) 4.5 Absolute Lymphs (auto) 1.50 Nucleated RBC % 0 Sodium 137 Potassium 3.7 Chloride 105 Carbon Dioxide 26.0 Anion Gap 6 BUN 16 Creatinine 0.99 Estim Creat Clear Calc 62.47 Est GFR (MDRD) Af Amer 94 Est GFR (MDRD) Non-Af 78 BUN/Creatinine Ratio 16.2 Glucose 91 Lactic Acid 1.1 Calcium 8.8 B-Natriuretic Peptide 02/17/21 17:33 WBC RBC Hgb Hct MCV MCH MCHC RDW Std Deviation RDW Coeff of Regi Plt Count MPV Immature Gran % (Auto) Neut % (Auto) Lymph % (Auto) [place] % (Auto) Eos % (Auto) Baso % (Auto) Absolute Neuts (auto) Absolute Lymphs (auto) Nucleated RBC % Sodium Potassium Chloride Carbon Dioxide Anion Gap BUN Creatinine Estim Creat Clear Calc Est GFR (MDRD) Af Amer Est GFR (MDRD) Non-Af BUN/Creatinine Ratio Glucose Lactic Acid Calcium B-Natriuretic Peptide 118.6 H Discharge Plan Triage Chief Complaint: Edema ED Provider: Nette Ronquillo Dx/Rx/DC Orders Clinical Impression: Leg edema Instructions: ED Peripheral Edema, Bilateral Prescriptions: No Action ferrous sulfate [Iron (ferrous sulfate)] 325 MG tablet 325 mg PO DAILY RF: 0 warfarin 5 mg tablet 5 mg PO DAILY 30 Days Qty: 30 RF: 0 [facility] Care Provider[facility] [facility] [[facility] Provider[facility] - Activity Restrictions/Additional Instructions: See your family doctor in 3 to 5 days for repeat exam Disposition Disposition: Home, Self Care
[2021-02-17 17:41] LABS: Absolute Neutrophil Count 4.5 X10^3/uL (2.0-7.7); Basophil# 0.04 X10^3/uL; Basophil% 0.6 % (0-1); Eosinophil# 0.34 X10^3/uL; Eosinophils% 4.7 % (0-5); Hematocrit 39.1 % (40-54); Hemoglobin 12.6 g/dL (13.0-16.5); Lymphocyte % 20.9 % (19-41); Mean Corp Hgb Conc 32.2 g/dL (32-36); Mean Corpuscular Hgb 29.2 pg (27.0-32.0); Mean Corpuscular Volume 90.7 fL (80-94); Monocyte# 0.83 X10^3/uL; Monocyte% 11.6 % (0-10); NRBC Flagged by Analyzer 0 % (0-5); Neutrophil # 4.45 X10^3/uL (2.7-7.7); Neutrophil % 62.1 % (47-70); Platelet Count 292 K/mm3 (150-450); RBC Distribution Width CV 13.2 % (11.6-14.6); RBC Distribution Width SD 44.2 fl (35.1-43.9); Red Blood Count 4.31 M/mm3 (4.6-6.2); White Blood Count 7.2 K/mm3 (4.4-11.0)
[2021-02-17 17:43] VITALS: BP 136/76; PULSE 64; RESP 16; TEMP 36.6; O2SAT 95
[2021-02-17 17:55] LABS: Anion Gap 6 (5-15); BUN 16 mg/dL (7-18); BUN/Creat Ratio 16.2 RATIO (10-20); Calcium,Total 8.8 mg/dL (8.5-10.1); Chloride 105 mmol/L (98-107); Creatinine, Serum 0.99 mg/dL (0.70-1.30); EST Glomerular Filtration Rate 78 mL/min (>60); Est Glom Filt Rate - Afr Amer 94 mL/min (>60); Estimated Creatinine Clearance 62.47 ml/min; Glucose 91 mg/dL (74-106); Potassium 3.7 mmol/L (3.5-5.1); Sodium Level 137 mmol/L (136-145)
[2021-02-17 18:03] LABS: BNP,B-Type NATRIURETIC PEPTIDE 118.6 pg/mL (0-100)
[2021-02-17 18:10] LABS: Lactic Acid 1.1 mmol/L (0.4-1.9)
[2021-02-17 19:31] VITALS: BP 153/72; PULSE 80; RESP 18; O2SAT 98
[2021-02-17 19:37] VITALS: RESP 16
== END 2021-02-17 19:57 | disposition home or self-care (01) ==
PROVIDERS: Emergency Provider Emergency Medicine
DX: R60.0 Localized edema (principal)
CPT/HCPCS: 80048; 83605; 83880; 85025; 87040; 99285

== ENCOUNTER 2021-10-27 15:48 | Emergency (ER) | payer OTHER, SELFPAY ==
[2021-10-27 15:49] VITALS: BP 153/84; PULSE 79; RESP 18; TEMP 36.6; O2SAT 100; BMI 25.8
[2021-10-27 16:25] VITALS: BP 130/59; PULSE 64; RESP 18; O2SAT 96
[2021-10-27 17:40] VITALS: BP 122/56; PULSE 63; RESP 16; O2SAT 99
--- NOTE | 2021-10-27 17:46 | ED.VIS.LOWEX ---
HPI History of Present Illness Chief Complaint: Edema Informant: patient and family Narrative Narrative: Patient has had edema in both of his legs for years. He goes to the [place] and [place] for this, family is concerned because they are trying to kick him out and sent him to [place], but he has an old Thunderbird and he cannot drive to [place]. Additionally, yesterday he spontaneously started leaking fluid from his left leg which is new. Patient denies any pain, fevers, or drainage other than clear fluid. He is on no diuretics and he does not know why. He is on warfarin, it appears due to a remote DVT. He denies any symptoms other than the draining, he states he feels good, and has no chest pain, shortness of breath, lightheadedness, palpitations, or other systemic symptoms or fevers. He denies any injury or tears. His legs are wrapped partially, with old dirty dressings, he states they are 2 months old because he cannot get back in to the [facility] in [place]. Also patient wants to get vaccinated against COVID which she has never done. [facility] Medical History (Updated 10/27/21 @ 17:[address] North Gutiérrez MD) DVT of leg (deep venous thrombosis) HLD (hyperlipidemia) Iron deficiency anemia Lymphedema Personal history of prostate cancer Venous insufficiency (chronic) (peripheral) Venous stasis dermatitis Home Medications ferrous sulfate [Iron (ferrous sulfate)] 325 mg PO DAILY 07/27/16 [History Last Taken Unknown] warfarin 5 mg PO DAILY 30 Days #30 tab 12/08/20 [Rx Last Taken Unknown] furosemide [Lasix] 20 mg PO DAILY #10 tab 10/27/21 [Rx Last Taken Unknown] Allergy/AdvReac Type Severity Reaction Status Date / Time vancomycin Allergy Anaphylaxis Verified 10/27/21 15:51 Social History household members: none Smoking Status: Never smoker substance use type: does not use ROS ROS ED Constitutional Constitutional ED: Denies chills or fever(s) Cardiovascular Cardiovascular: Reports pedal edema Musculoskeletal Musculoskeletal: Denies extremity pain or neck pain Integumentary Denies Abrasions, rash or wounds Neurologic Neurologic: Denies paresthesias or weakness EXAM Physical Exam Const Vital Signs: 10/27/21 15:49 10/27/21 16:21 10/27/21 16:25 Temperature 98 F Temperature Source Temporal Pulse Rate 79 64 Respiratory Rate 18 18 Respiratory Effort Normal Blood Pressure 153/84 H 130/59 H Blood Pressure Mean 107 82 Pulse Ox 100 96 Oxygen Delivery Method Room Air Room Air 10/27/21 17:40 Temperature Temperature Source Pulse Rate 63 Respiratory Rate 16 Respiratory Effort Blood Pressure 122/56 H Blood Pressure Mean 78 Pulse Ox 99 Oxygen Delivery Method Room Air Positive well nourished and well developed General Appearance ED: well developed and NAD Neck full ROM and supple Back/Spine normal ROM and normal to inspection Extremity Extremity Narrative: Patient has chronic appearing edema and stasis dermatitis of both lower legs from the knees down, scaly skin, bright erythema, none of this is tender. Full range of motion of the ankles, toes, knees. Fairly symmetric bilaterally a little more prominent on the left. Patient states this is his baseline. In the left lateral calf, there is a very small opening in the skin that appears superficial and without any infection or purulent discharge but there is clear fluid actively draining from this area, slowly. There are no other areas that are draining clear fluid. All of the gauze hanging off of his legs are soaked. Neuro oriented x3, no focal motor deficits and no sensory deficits noted Sensorium / Orientation: alert Psych mental status grossly normal and thought process normal Skin no wounds Rashes: no rashes MDM MDM MDM Narrative Medical decision making narrative: I see no history of renal failure, patient has been eating and drinking normally. I think it would be reasonable to place him on a short course of Lasix to help with some of the edema, but he may be off of diuretics for a certain reason that none of us know right now and that I do not have access to record. I discussed that with him and advise outpatient follow-up for that reason, I will have nurses replace his dressings, administer the first Pfizer COVID-vaccine, and have him follow-up or [facility] at the appropriate time. Discharge Plan Triage Chief Complaint: Edema ED Provider: North Gutiérrez Dx/Rx/DC Orders Clinical Impression: Edema of both lower extremities due to peripheral venous insufficiency, Wound of left leg, COVID-19 vaccine administered Instructions: ED Peripheral Edema, Bilateral Prescriptions: New furosemide [Lasix] 20 mg tablet 20 mg PO DAILY Qty: 10 RF: 0 No Action ferrous sulfate [Iron (ferrous sulfate)] 325 MG tablet 325 mg PO DAILY RF: 0 warfarin 5 mg tablet 5 mg PO DAILY 30 Days Qty: 30 RF: 0 [facility] Provider[facility] Referrals: Wound Health [Outside] - [facility] - Activity Restrictions/Additional Instructions: Change dressings over the small area lateral left calf as needed when soaked, keep a small layer of antibiotic ointment against the skin to prevent infection and keep an eye on the area for changes every time the dressing is changed. Disposition Disposition: Home, Self Care
[2021-10-27] MEDS: Furosemide 20 MG Tablet PO (17:49)
[2021-10-27] MEDS: COVID-19 VACC, MRNA(PFIZER)/PF 30 MCG/0.3 ML SYRINGE IM (19:21)
[2021-10-27 19:25] VITALS: RESP 16
[2021-10-27 19:59] VITALS: RESP 18
--- NOTE | 2021-10-27 20:00 | ED.RN ---
no reaction noted from covid injection.
== END 2021-10-27 20:00 | disposition home or self-care (01) ==
PROVIDERS: Emergency Provider Emergency Medicine; Visit Provider Emergency Medicine
DX: I87.2 Venous insufficiency (chronic) (peripheral) (principal); R60.0 Localized edema; S81.802A Unspecified open wound, left lower leg, initial encounter; X58.XXXA Exposure to other specified factors, initial encounter; I89.0 Lymphedema, not elsewhere classified; Z23 Encounter for immunization; E78.5 Hyperlipidemia, unspecified; D50.9 Iron deficiency anemia, unspecified; Z79.01 Long term (current) use of anticoagulants; Z86.718 Personal history of other venous thrombosis and embolism; Z79.899 Other long term (current) drug therapy; Z85.46 Personal history of malignant neoplasm of prostate
CPT/HCPCS: 91300; 99283

== ENCOUNTER 2022-01-18 16:12 | Inpatient (IN) | payer MEDICARE, SELFPAY ==
[2022-01-18 16:12] VITALS: BP 128/82; PULSE 87; RESP 18; TEMP 36.4; O2SAT 100; BMI 29.5
--- NOTE | 2022-01-18 16:30 | RAD_ITS ---
STUDY: X-RAY - RIGHT TIBIA AND FIBULA REASON FOR EXAM: Male, 81 years old. WOUNDS TECHNIQUE: 2 view(s) of the tibia and fibula were obtained. COMPARISON: None. FINDINGS: Normal visualized tibia. Normal visualized fibula. Vascular calcification. No subcutaneous gas or radiodense foreign body. The soft tissue structures are unremarkable. RAD/Tibia & Fibula 2 Views IMPRESSION: No acute disease Electronically Signed: Mikal Cooley MD at 17:15 EDT ,
--- NOTE | 2022-01-18 16:32 | EDS_ITS ---
HPI History of Present Illness Chief Complaint: Wound Informant: patient and family Narrative Narrative: Dents with bilateral worsening wounds on his legs with malodorous discharge. However, he is not having fevers chills nausea or vomiting. He has years of history of edema and wound problems. He had some unknown surgery of his right leg 6 or 7 years ago. Normal white count he does not recall being told that this was a bypass. He states they made 6 incisions that they left open so this could have been an infection or compartment syndrome. He states he takes no medicines at all now. His chart lists DVT as a prior history. He had a least to been on Coumadin for some period of time. It looks like he has been on Lasix for some period of time. Over the last few weeks to month the wounds have opened up and drained more. They are now getting red and malodorous. He has not seen anyone for these in at least a year. [facility] Medical History DVT of leg (deep venous thrombosis) Former smoker HLD (hyperlipidemia) Iron deficiency anemia Lymphedema Personal history of prostate cancer Venous insufficiency (chronic) (peripheral) Venous stasis dermatitis Home Medications ferrous sulfate 325 mg (65 mg iron) tablet (Iron (ferrous sulfate)) 325 mg PO DAILY anemia 07/27/16 [History Last Taken Unknown] warfarin 5 mg tablet 5 mg PO DAILY blood thinner 30 days #30 tabs 12/08/20 [Rx Last Taken Unknown] furosemide 20 mg tablet (Lasix) 20 mg PO DAILY #10 tabs 10/27/21 [Rx Last Taken Unknown] Allergy/AdvReac Type Severity Reaction Status Date / Time vancomycin Allergy Anaphylaxis Verified 01/18/22 16:14 Social History household members: none Smoking Status: Never smoker substance use type: does not use ROS ROS ED Constitutional Constitutional ED: Denies chills, fever(s) or subjective Eyes Eyes: Denies change in vision Cardiovascular Cardiovascular: Denies chest pain or palpitations Respiratory/Chest Respiratory/Chest: Denies cough Gastrointestinal Gastrointestinal: Denies nausea or vomiting Musculoskeletal Musculoskeletal: Reports other Details: Bilateral leg wounds as in history of present illness. Integumentary Reports rash and other Details: See history of present illness Neurologic Neurologic: Denies paresthesias Endocrine Endocrinology: Denies polydipsia or polyuria Hematologic/Lymphatic Hematologic/Lymphatic: Denies easy bleeding or easy bruising Allergic/Immunologic Allergic/Immunologic ED: Denies urticaria EXAM Physical Exam Const Vital Signs: 01/18/22 16:12 Temperature 97.6 F L Temperature Source Temporal Pulse Rate 87 Respiratory Rate 18 Blood Pressure 128/82 H Blood Pressure Mean 97 Pulse Ox 100 Oxygen Delivery Method Room Air Positive well nourished Constitutional Narrative: There is an extremely strong odor of devitalized tissue and likely infection even in the hallway near the room. Despite this, the patient actually looks nontoxic. General Appearance ED: NAD GABINOENT Reports moist mucous membranes Neck full ROM Chest Wall inspection of chest normal Resp normal respiratory effort Auscultation: Negative for rales or wheezes Cardio regular rate and regular rhythm GI non-tender Extremity Extremity Narrative: Patient's right leg is has a very tight wrapping on the lower tellez. There are obvious ulcerations and erosions of skin above this and weeping through the dressing. This will be removed. The right leg has a sock on his foot and lower ankle. There is a large ulcer above this. The sock itself is no longer white. It is dark brown and stiff and nonflexible. Neuro oriented x3 Psych mental status grossly normal Skin Skin Narrative: See above. MDM MDM MDM Narrative Medical decision making narrative: Both legs were unwrapped. Knee right leg has the open area in the tellez. Open area down by the ankle posteriorly that are very wet and moist and draining. Left has a similar pattern. Patient's labs look surprisingly good. He has a normal white count. Renal function is normal. X-ray show demineralization but no obvious sign of osteo-. However, his legs show multiple ulcers. The left lower leg foot and ankle area is erythematous warm and a bit swollen. I do not think he will do well as an outpatient. Safety glasses I think we need to get the infection under control, get him set up with wound care, he admits that he is having trouble walking on the legs now. I did discuss case with hospitalist. Lab Data Attestation: I reviewed the patient's lab results. Labs: Laboratory Results - last 24 hr 01/18/22 01/18/22 01/18/22 17:14 17:14 17:14 WBC 9.9 RBC 4.03 L Hgb 11.8 L Hct 36.5 L MCV 90.6 MCH 29.3 MCHC 32.3 RDW Std Deviation 43.2 RDW Coeff of Regi 13.1 Plt Count 312 MPV 8.6 Immature Gran % (Auto) 0.400 Neut % (Auto) 68.6 Lymph % (Auto) 15.9 L [place] % (Auto) 11.8 H Eos % (Auto) 2.7 Baso % (Auto) 0.6 Absolute Neuts (auto) 6.8 Absolute Lymphs (auto) 1.57 Nucleated RBC % 0 PT 13.9 INR 1.1 Sodium 138 Potassium 4.3 Chloride 105 Carbon Dioxide 27.0 Anion Gap 6 BUN 17 Creatinine 0.93 Estim Creat Clear Calc 63.35 Est GFR (MDRD) Af Amer 101 Est GFR (MDRD) Non-Af 83 BUN/Creatinine Ratio 18.3 Glucose 100 Calcium 8.8 Radiography Diagnostic Testing: Clinical Impression(s) from Imaging Studies Tibia/Fibula X-Ray 01/18/22 16:30 IMPRESSION: No acute disease Electronically Signed: Mikal Cooley MD at 17:15 EDT Reading Location ID and State: [address] [place] [address] , Service support , Tibia/Fibula X-Ray 01/18/22 16:56 IMPRESSION: Skin defect anterior tibia. Demineralization decreases sensitivity. Triple phase bone scan or MRI would be more sensitive for osteomyelitis. Electronically Signed: Mikal Cooley MD at 17:18 EDT Reading Location ID and State: [facility] / [place] , Service support , Discharge Plan Triage Chief Complaint: Wound ED Provider: Arvind Esparza Dx/Rx/DC Orders Clinical Impression: Open wound of right lower leg, Open wound of left lower leg, Cellulitis Prescriptions: No Action ferrous sulfate [Iron (ferrous sulfate)] 325 MG tablet 325 mg PO DAILY Label Comments: ANEMIA warfarin 5 mg tablet 5 mg PO DAILY 30 Days Qty: 30 0RF Rx Instructions: Lovenox to Coumadin bridge: discontinue Lovenox when INR is 1.8. furosemide [Lasix] 20 mg tablet 20 mg PO DAILY Qty: 10 0RF [facility] - Disposition Disposition: Acute Care [facility]
--- NOTE | 2022-01-18 16:56 | RAD_ITS ---
STUDY: X-RAY - LEFT TIBIA AND FIBULA REASON FOR EXAM: Male, 81 years old. wounds, ?Osteo TECHNIQUE: 2 view(s) of the tibia and fibula were obtained. COMPARISON: Left tib-fib 11/05/2020 FINDINGS: Normal visualized tibia. Normal visualized fibula. Diffuse demineralization. Skin defect anterior tibia. No subcutaneous gas or radiodense foreign body. RAD/Tibia & Fibula 2 Views IMPRESSION: Skin defect anterior tibia. Demineralization decreases sensitivity. Triple phase bone scan or MRI would be more sensitive for osteomyelitis. Electronically Signed: Mikal Cooley MD at 17:18 EDT ,
[2022-01-18 17:25] LABS: Absolute Lymphocyte Count 1.57 X10^3/uL (0.83-4.51); Absolute Neutrophil Count 6.8 X10^3/uL (2.0-7.7); Basophil# 0.06 X10^3/uL; Basophil% 0.6 % (0-1); Eosinophil# 0.27 X10^3/uL; Eosinophils% 2.7 % (0-5); Hematocrit 36.5 % (40-54); Hemoglobin 11.8 g/dL (13.0-16.5); Lymphocyte # 1.57 X10^3/ul (0.83-4.51); Lymphocyte % 15.9 % (19-41); Mean Corp Hgb Conc 32.3 g/dL (32-36); Mean Corpuscular Hgb 29.3 pg (27.0-32.0); Mean Corpuscular Volume 90.6 fL (80-94); Mean Platelet Vol. 8.6 fl (6.2-12.0); Monocyte# 1.17 X10^3/uL; Monocyte% 11.8 % (0-10); NRBC Flagged by Analyzer 0 % (0-5); Neutrophil # 6.77 X10^3/uL (2.7-7.7); Neutrophil % 68.6 % (47-70); Platelet Count 312 K/mm3 (150-450); RBC Distribution Width CV 13.1 % (11.6-14.6); RBC Distribution Width SD 43.2 fl (35.1-43.9); Red Blood Count 4.03 M/mm3 (4.6-6.2); White Blood Count 9.9 K/mm3 (4.4-11.0)
[2022-01-18 17:35] LABS: International Normalized Ratio 1.1; Prothrombin Time (Protime)PT. 13.9 SECONDS (11.7-14.9)
[2022-01-18 17:38] LABS: Anion Gap 6 (5-15); BUN 17 mg/dL (7-18); BUN/Creat Ratio 18.3 RATIO (10-20); Calcium,Total 8.8 mg/dL (8.5-10.1); Chloride 105 mmol/L (98-107); Creatinine, Serum 0.93 mg/dL (0.70-1.30); EST Glomerular Filtration Rate 83 mL/min (>60); Est Glom Filt Rate - Afr Amer 101 mL/min (>60); Estimated Creatinine Clearance 63.35 ml/min; Glucose 100 mg/dL (74-106); Potassium 4.3 mmol/L (3.5-5.1); Sodium Level 138 mmol/L (136-145)
--- NOTE | 2022-01-18 18:15 | HP.PCM.HOS_ITS ---
[facility] - General General Date of Service: 01/18/22 Chief Complaint: bilateral lower extremity wounds HPI Narrative LISET MORENO, is a 81 M with a PMH as outlined who presents via the ED on 01/18/2022 with a complaint of lower extremity wounds that are worsening, with an offensive discharge. He has a history of lower extremity edema and used to see wound care many years ago. He apparently had some surgery on his LEs some 6-7 years ago, which he thinks was a bypass; he had 6 incisions done that were left open. His legs had been getting worse, so family decided to bring him in to the ED. He denied any fever, chills, nausea, vomiting or diarrhea. Review of systems was otherwise negative. Vitals in [facility] ED were BP of 128/82, ID of 87 and RR of 18, temp of 97.6F and he was saturating at 100% on room air. CBC showed wbc of 9.9, Hb of 11.8 and platelets of 312. INR is 1.1. Chemistry was unremarkable. Xray of the tibia and fibula showed demineralization and skin defect of hte anterior tibia. HE is being admitted to be managed for cellulitis of the LEs. [facility] Medical History DVT of leg (deep venous thrombosis) Former smoker HLD (hyperlipidemia) Iron deficiency anemia Lymphedema Personal history of prostate cancer Venous insufficiency (chronic) (peripheral) Venous stasis dermatitis Home Medications NK 01/18/22 [History Last Taken Unknown] Allergy/AdvReac Type Severity Reaction Status Date / Time vancomycin Allergy Anaphylaxis Verified 01/18/22 16:14 Social History household members: none Smoking Status: Never smoker substance use type: does not use ROS Constitutional Constitutional: Denies anorexia, chills, fatigue, fever(s), malaise or weakness Eyes Eyes: Denies change in vision ENT HEENT: Denies dysphagia, headache(s), nasal congestion or sore throat Cardiovascular Cardiovascular: Denies chest pain, dyspnea on exertion, edema, lightheadedness, orthopnea, palpitations, paroxysmal nocturnal dyspnea, rapid heart rate or syn cope Respiratory/Chest Respiratory/Chest: Denies cough, dyspnea, productive cough, shortness of breath at rest or shortness of breath with exertion Gastrointestinal Gastrointestinal: Denies abdominal pain, diarrhea, dyspepsia, nausea or vomiting Genitourinary Genitourinary: Denies burning urination or dysuria Musculoskeletal Musculoskeletal: Denies arthralgias or back pain Neurologic Neurologic: Denies confusion, dizziness, focal weakness, headache(s) or seizures Psychiatric Psychiatric: Denies anxiety or depression Hematologic/Lymphatic Hematologic/Lymphatic: Denies anemia Vital Signs Vital Signs Vital Signs: 01/18/22 16:12 Temperature 97.6 F L Temperature Source Temporal Pulse Rate 87 Respiratory Rate 18 Blood Pressure 128/82 H Blood Pressure Mean 97 Pulse Ox 100 Oxygen Delivery Method Room Air Weight Weight: 200 lb Body Mass Index (BMI) 29.5 Physical Exam Const alert, oriented x3 and no apparent distress General Appearance: cooperative HEENT normocephalic, head/scalp atraumatic, hearing grossly normal bilaterally and moist oral mucous membranes Mouth: oral and palatal mucosa normal Eyes PERRL, EOMs intact bilaterally and conjunctivae normal Neck no lymphadenopathy, supple and no JVD Resp normal respiratory effort, no retractions, no use of accessory muscles and clear to auscultation bilaterally Cardio regular rate, regular rhythm, S1 normal heart sound, S2 normal heart sound and no murmurs GI normal to inspection, nondistended, normoactive bowel sounds, soft to palpation, non-tender and non-distended Extremity Extremity Narrative: bilateral LE stasis dermatitis; LEs severely macerated with superficial ulcerations on both LEs; skin on LEs and toes heavily keratinised and scaly. LEs erythematous Skin Skin Narrative: as under extremities Neuro oriented x3, CN's II-XII intact bilaterally, moves all extremities and no focal motor deficits Sensorium / Orientation: awake Motor Exam: strength 5/5 throughout Psych affect normal Results Lab / Micro Data Result Diagrams: 01/18/22 17:14 01/18/22 17:14 Labs: Laboratory Results - last 24 hr 01/18/22 17:14: WBC 9.9, RBC 4.03 L, Hgb 11.8 L, Hct 36.5 L, MCV 90.6, MCH 29.3, MCHC 32.3, RDW Std Deviation 43.2, RDW Coeff of Regi 13.1, Plt Count 312, MPV 8.6, Immature Gran % (Auto) 0.400, Neut % (Auto) 68.6, Lymph % (Auto) 15.9 L, [place] % (Auto) 11.8 H, Eos % (Auto) 2.7, Baso % (Auto) 0.6, Absolute Neuts (auto) 6.8, Absolute Lymphs (auto) 1.57, Nucleated RBC % 0 01/18/22 17:14: PT 13.9, INR 1.1 01/18/22 17:14: Sodium 138, Potassium 4.3, Chloride 105, Carbon Dioxide 27.0, Anion Gap 6, BUN 17, Creatinine 0.93, Estim Creat Clear Calc 63.35, Est GFR (MDRD) Af Amer 101, Est GFR (MDRD) Non-Af 83, BUN/Creatinine Ratio 18.3, Glucose 100, Calcium 8.8 Radiology Impression Tibia/Fibula X-Ray 01/18/22 16:30 IMPRESSION: No acute disease Electronically Signed: Mikal Cooley MD at 17:15 EDT Reading Location ID and State: [address] [place] [address] , Service support , Tibia/Fibula X-Ray 01/18/22 16:56 IMPRESSION: Skin defect anterior tibia. Demineralization decreases sensitivity. Triple phase bone scan or MRI would be more sensitive for osteomyelitis. Electronically Signed: Mikal Cooley MD at 17:18 EDT Reading Location ID and State: [address] [place] [address] , Service support , Assessment & Plan Assessment/Plan (1) Stasis dermatitis: QUALIFIERS: Laterality: bilateral Qualified Code(s): I87.2 - Venous insufficiency (chronic) (peripheral) (2) Open wound of right lower leg: (3) Cellulitis: QUALIFIERS: Laterality: left Site of cellulitis of extremity: lower extremity PLAN: Plan #Cellulitis of the lower extremities * is superimposed on chronic lower extremity stasis dermatitis * admit to med surg * get wound cultures and blood cultures * start on IV cefepime; allergic to vancomycin, so will start on IV doxycycline. * consult wound care * xray of lower extremities showed skin defect of anterior tibia with deminieralization * #History of DVT * INR is 1. He says he doesnt take his coumadin, and doesnt take any medication, and cannot remember when he had DVT. * * DVT prophylaxis: lovenox Code status: full code * Patient counseled extensively about different types of CODE STATUS including full code, DNR CCA and DNR CCA. Patient states that he did want what ever needs to be done to keep him alive and therefore elects to be full code. * Total [id number] time 16 minutes. Charges/Coding Visit Charges Inpatient E&M: 53488 Init Hosp L3 Procedures Hospitalists Procedures: 14969 Advncd Care Plan 30 Min
[2022-01-18 18:26] LABS: Lactic Acid 1.5 mmol/L (0.4-1.9)
[2022-01-18 18:44] VITALS: BP 142/85; PULSE 77; RESP 15; TEMP 37; O2SAT 98
[2022-01-18 19:14] VITALS: BMI 27.6
[2022-01-18] MEDS: 0.9% Normal Saline 1,000 ML 125 ML IV (20:39)
[2022-01-18 22:26] VITALS: BP 134/71; PULSE 70; RESP 18; TEMP 36.7; O2SAT 98
[2022-01-19 05:09] VITALS: BP 118/60; PULSE 76; RESP 18; TEMP 37.2; O2SAT 97
[2022-01-19] MEDS: Nystatin Powder 15gm Bottle 1 APPLIC TOPICAL ×3 (05:15→22:29)
[2022-01-19] MEDS: 0.9% Normal Saline 1,000 ML 125 ML IV (05:15)
[2022-01-19 05:53] LABS: Absolute Lymphocyte Count 1.39 X10^3/uL (0.83-4.51); Absolute Neutrophil Count 5.5 X10^3/uL (2.0-7.7); Basophil# 0.05 X10^3/uL; Basophil% 0.6 % (0-1); Eosinophil# 0.34 X10^3/uL; Eosinophils% 4.1 % (0-5); Hematocrit 29.6 % (40-54); Hemoglobin 9.8 g/dL (13.0-16.5); Lymphocyte # 1.39 X10^3/ul (0.83-4.51); Lymphocyte % 16.7 % (19-41); Mean Corp Hgb Conc 33.1 g/dL (32-36); Mean Corpuscular Hgb 29.7 pg (27.0-32.0); Mean Corpuscular Volume 89.7 fL (80-94); Mean Platelet Vol. 8.9 fl (6.2-12.0); Monocyte# 1.02 X10^3/uL; Monocyte% 12.3 % (0-10); NRBC Flagged by Analyzer 0 % (0-5); Neutrophil # 5.48 X10^3/uL (2.7-7.7); Neutrophil % 65.8 % (47-70); Platelet Count 264 K/mm3 (150-450); RBC Distribution Width CV 13.1 % (11.6-14.6); RBC Distribution Width SD 43.1 fl (35.1-43.9); White Blood Count 8.3 K/mm3 (4.4-11.0)
[2022-01-19 06:18] LABS: Anion Gap 5 (5-15); BUN 11 mg/dL (7-18); BUN/Creat Ratio 16.4 RATIO (10-20); Calcium,Total 7.9 mg/dL (8.5-10.1); Chloride 108 mmol/L (98-107); Creatinine, Serum 0.67 mg/dL (0.70-1.30); EST Glomerular Filtration Rate 121 mL/min (>60); Est Glom Filt Rate - Afr Amer 146 mL/min (>60); Estimated Creatinine Clearance 58.92 ml/min; Glucose 89 mg/dL (74-106); Potassium 3.6 mmol/L (3.5-5.1); Sodium Level 138 mmol/L (136-145)
[2022-01-19 07:55] VITALS: BP 124/65; PULSE 70; RESP 18; TEMP 36.9; O2SAT 98
--- NOTE | 2022-01-19 10:22 | WOUNDNOTE ---
wound photo: left lower leg
--- NOTE | 2022-01-19 10:22 | WOUNDNOTE ---
wound photo: right lower leg
--- NOTE | 2022-01-19 10:23 | WOUNDNOTE ---
wound photo: right lower leg
--- NOTE | 2022-01-19 10:45 | CASEMGMT ---
RN KARINA Face to Face with patient for initial transition planning/care coordination assessment. RN CM introduced self and role at [facility]. Patient sitting in chair, alert and slightly confused at times but able to reorient. Patient willing to participate in assessment and is able to answer all questions appropriately. Care providers, pharmacy, and demographics verified. Patient wishes to discharge home will monitor for SNF vs HHC pending course of treatment and progress with therapy. Patient states he has no further needs or concerns at this time. CM to follow for discharge planning needs that may arise. PCP: Jocelyn De Anda Specialists: Director Of [facility] at [facility] Preferred Pharmacy: [place] Insurance: [employer] [facility] Prescription Benefit: [place] Living Will/HPOA: none LNOK: daughters, Jovan and Alix Living Arrangements: Patient states he lives alone in a single story home. Patient states he is independent at home. Transportation: self DME/HHC: Patient states he has grab bars, walker, and wheelchair at home. Patient has previously been to TCU. [facility] Disposition Plan: TBD, anticipate HHC vs SNF pending course of treatment and progress with therapy. Rosibel ESCAMILLA, RN, CM
[2022-01-19] MEDS: Enoxaparin 40 MG/0.4 ML Syringe SC (10:49)
[2022-01-19] MEDS: Furosemide 20 MG Tablet PO (10:49)
[2022-01-19 13:48] LABS: M R Staph aureus DNA By PCR POSITIVE (Negative); Staph aureus DNA By PCR POSITIVE (Negative)
[2022-01-19 13:52] LABS: Probe Check PASS
[2022-01-19 14:15] VITALS: BP 110/63; PULSE 71; RESP 18; TEMP 37.2; O2SAT 98
--- NOTE | 2022-01-19 14:45 | CASEMGMT ---
Addendum entered by Vidya Le 01/19/22 15:31: CELENA COLLINS back into pt room, pt states he would be agreeable to going back to TCU for therapy and wound care. He states he really thinks he can get back to walking again better. Pt aware that SW will make referral to TCU. SW updated. Original Note: RN KARINA in to pt room, pt sitting up in chair. Discussed dc planning and options for HHC vs SNF. Patient was provided a list of HHC/SNF providers including quality and resource use data and consistent with the patient?s preferred geographic region, medical needs, and insurance network. Patient states he had told his neighbors about his black bugs in his wounds but no one seemed concerned. He states he now has white bugs in them. Discussed the need for clean environment and a cg to assist with dressing changes for HHC to be an option. Pt to think about this and CELENA COLLINS to check back.
--- NOTE | 2022-01-19 15:07 | CASEMGMT ---
Social Work See attached. Patient reports to have a Life Care Power of Manager [employer] and Living Will but not sure who is health care power of financial risk manager. Patient reports to know where documents are at home. This social welfare research worker inquired if patient has anyone that would be able to bring in documents, patient states not really. Patient reports plan to go home tomorrow and to be able to look at papers and can bring documents into the hospital if everything looks right. This social welfare research worker thanked patient for patient efforts to attempt to bring in documents and stressed importance of bringing documents to hospital. Patient voiced understanding. This social welfare research worker also broached conversation of patient returning to home alone as patient has extensive wounds. Patient states plan is to go home. This social welfare research worker encouraged patient to consider [facility] placement to manage patient wound care. Patient does confirm to have concerned about patient wounds. Patient states I will let you know if I change my mind in regards to going home. Eladio Harding MSW, NUVIA-S
--- NOTE | 2022-01-19 15:37 | CASEMGMT ---
Social Work Consult: skilled nursing placement Referral source: central sterile supply technician. This high school social studies tutor met with patient in room to confirm patient choices. Patient reports to have received list of nursing homes that are local to patient geographical region and in-network with patient insurance. Patient reports that first choice is the Transitional Care Unit. Telephone call to [facility]. Voicemail left with referral information on confidential voicemail. PLAN: TCU, pending approval. Eladio DEWITT, NUVIA-S
--- NOTE | 2022-01-19 15:51 | CASEMGMT ---
Addendum entered by Neetu Harding 01/19/22 15:53: This nursing home social worker inquired if patient has any support person that patient would like this nursing home social worker to call. Patient states not at this time. Original Note: Social Work Telephone call from Mercedes MCKEE. Patient has been accepted. This nursing home social worker communicated above information to patient and medical team. PLAN: RAFI, nancy. Pending medical clearance. Eladio DEWITT, NUVIA-s
[2022-01-19] MEDS: Juven (unflavored) Packet 1 PACKET PO (16:48)
--- NOTE | 2022-01-19 18:30 | PN.HOSP_ITS ---
Subjective Subjective Was seen and examined today, case management talk to the patient he is agreed to go into a skilled care facility for short-term rehab services if indicated by PT and OT. Patient's leg culture was obtained today, there was also a PCR for staph aureus today that was positive, the PCR was also positive for MRSA. Irene rice is currently on doxycycline and Maxipime. We lost IV access this afternoon so the patient will get a midline catheter placed. Objective Data Objective Data Vital Signs: Vital Signs Temp Pulse Resp BP Pulse Ox O2 Del Method 98.9 F 71 18 110/63 98 Room Air 01/19/22 14:15 01/19/22 14:15 01/19/22 14:15 01/19/22 14:15 01/19/22 14:15 01/19/22 14:20 Oxygen Delivery Method Room Air Weight: 85 kg Body Mass Index (BMI) 27.6 Intake & Output: Intake and Output for Last 24 Hours 01/17/22 01/18/22 01/19/22 23:59 23:59 23:59 Intake Total 599.58 / 599.58 2426.67 / 2426.67 Output Total 300 / 300 Balance 599.58 / 599.58 2126.67 / 2126.67 Lab / Micro Data Result Diagrams: 01/19/22 04:48 01/19/22 04:48 Labs: Laboratory Results - last 24 hr 01/19/22 04:48: WBC 8.3, RBC 3.30 L, Hgb 9.8 L, Hct 29.6 L, MCV 89.7, MCH 29.7, MCHC 33.1, RDW Std Deviation 43.1, RDW Coeff of Regi 13.1, Plt Count 264, MPV 8.9, Immature Gran % (Auto) 0.500, Neut % (Auto) 65.8, Lymph % (Auto) 16.7 L, Ward % (Auto) 12.3 H, Eos % (Auto) 4.1, Baso % (Auto) 0.6, Absolute Neuts (auto) 5.5, Absolute Lymphs (auto) 1.39, Nucleated RBC % 0 01/19/22 04:48: Sodium 138, Potassium 3.6, Chloride 108 H, Carbon Dioxide 25.0, Anion Gap 5, BUN 11, Creatinine 0.67 L, Estim Creat Clear Calc 58.92, Est GFR (MDRD) Af Amer 146, Est GFR (MDRD) Non-Af 121, BUN/Creatinine Ratio 16.4, Glucose 89, Calcium 7.9 L 01/19/22 10:00: S.aureus Protein A PCR POSITIVE H, MRSA (PCR) POSITIVE H Micro: Microbiology 01/19/22 10:00 Wound - Leg, Right Gram Stain - Final Physical Exam Const alert, oriented x3 and no apparent distress General Appearance: cooperative, well kempt and well developed Orientation / Consciousness: awake, oriented to person, oriented to place and oriented to time HEENT normocephalic, head/scalp atraumatic and moist oral mucous membranes Eyes PERRL, EOMs intact bilaterally and conjunctivae normal Neck supple, no JVD, thyroid normal and no carotid bruits General: trachea midline Resp normal respiratory effort, no retractions, no use of accessory muscles and clear to auscultation bilaterally Auscultation: Negative for rales, rhonchi or wheezes Cardio regular rate, regular rhythm, S1 normal heart sound, S2 normal heart sound, no murmurs, no rub and no gallops GI normal to inspection, nondistended, normoactive bowel sounds, soft to palpation, non-tender and non-distended Extremity Extremity Narrative: Patient has severe stasis skin changes over both lower legs along with signs of chronic lymphedema over the lower legs. Patient has several open ulcerations related to stasis over the both lower legs. There is no purulent discharge from these areas noted at this time. Skin Skin Narrative: Multiple small open areas are noted over the patient's both lower legs., Stasis dermatitis changes are noted over both lower legs along with lymphedematous changes, there is slight edema over both lower legs. General Skin Exam: no breakdown Neuro oriented x3, CN's II-XII intact bilaterally, moves all extremities, no focal motor deficits and no sensory deficits noted Sensorium / Orientation: awake and alert Speech: speech normal Psych affect normal Assessment & Plan Assessment/Plan (1) Stasis dermatitis: QUALIFIERS: Laterality: bilateral Qualified Code(s): I87.2 - Venous insufficiency (chronic) (peripheral) PLAN: Plan 1. Bilateral lower leg cellulitis-possibly secondary to MRSA, continue IV Vibramycin and IV cefepime at this time, await final culture results. Wound care is seeing patient. #2 chronic stasis changes both lower extremity-patient's legs are being wrapped, wound care is seeing patient #3 lymphedema of both lower extremities-complicates care, management, recovery, and prognosis #4 I acute on chronic debility-patient is being seen by PT and OT, he has agreed to go to a residential facility for short-term skilled care, I think this would benefit the patient due to the extent of his lower leg wounds and chronic lower leg lymphedema. #5 anemia-etiology unclear at this time, CBC will be monitored, no need for transfusion at this time Charges/Coding Visit Charges Inpatient E&M: 91448 Subs Hosp L2
[2022-01-19 20:03] VITALS: BP 129/61; PULSE 70; RESP 18; TEMP 36.6; O2SAT 100
[2022-01-20 02:30] VITALS: BP 105/80; PULSE 65; RESP 18; TEMP 36.6; O2SAT 100
[2022-01-20] MEDS: Nystatin Powder 15gm Bottle 1 APPLIC TOPICAL ×3 (05:33→22:07)
[2022-01-20 09:00] VITALS: BP 123/68; PULSE 79; RESP 18; TEMP 36.8; O2SAT 100
[2022-01-20] MEDS: Juven (unflavored) Packet 1 PACKET PO ×2 (10:50→17:21)
[2022-01-20] MEDS: Enoxaparin 40 MG/0.4 ML Syringe SC (10:50)
[2022-01-20] MEDS: Furosemide 20 MG Tablet PO (10:50)
--- NOTE | 2022-01-20 12:22 | CASEMGMT ---
[facility] signed [facility] registration at [facility].
[2022-01-20 14:44] VITALS: BP 109/60; PULSE 66; RESP 18; TEMP 36.7; O2SAT 95
--- NOTE | 2022-01-20 17:00 | PCM.PN.HOSP ---
Subjective Subjective Patient was seen and examined today, I examined his lower legs with the wound care nurse today, he does have several open areas on both lower legs, there does not appear to be any purulent discharge from the areas, patient has severe stasis dermatitis changes of his lower legs along with some mild generalized edema. Patient's wound culture was positive for staph aureus-I am awaiting sensitivities. Objective Data Objective Data Vital Signs: Vital Signs Temp Pulse Resp BP Pulse Ox O2 Del Method 98.0 F 66 18 109/60 95 Room Air 01/20/22 14:44 01/20/22 14:44 01/20/22 14:44 01/20/22 14:44 01/20/22 14:44 01/20/22 14:44 Oxygen Delivery Method Room Air Weight: 85 kg Body Mass Index (BMI) 27.6 Intake & Output: Intake and Output for Last 24 Hours 01/18/22 01/19/22 01/20/22 23:59 23:59 23:59 Intake Total 599.58 / 599.58 2476.67 / 2476.67 1370 / 1370 Output Total 300 / 300 Balance 599.58 / 599.58 2176.67 / 2176.67 1370 / 1370 Lab / Micro Data Result Diagrams: 01/19/22 04:48 01/19/22 04:48 Labs: Laboratory Results - last 24 hr 01/19/22 10:00: S.aureus Protein A PCR POSITIVE H, MRSA (PCR) POSITIVE H Micro: Microbiology 01/19/22 10:00 Wound - Leg, Right Gram Stain - Final 01/19/22 10:00 Wound - Leg, Right Wound Culture - Preliminary Staphylococcus aureus Gram positive caitlyn Physical Exam Narrative alert, oriented x3 and no apparent distress General Appearance: cooperative, well kempt and well developed Orientation / Consciousness: awake, oriented to person, oriented to place and oriented to time HEENT normocephalic, head/scalp atraumatic and moist oral mucous membranes Eyes PERRL, EOMs intact bilaterally and conjunctivae normal Neck supple, no JVD, thyroid normal and no carotid bruits General: trachea midline Resp normal respiratory effort, no retractions, no use of accessory muscles and clear to auscultation bilaterally Auscultation: Negative for rales, rhonchi or wheezes Cardio regular rate, regular rhythm, S1 normal heart sound, S2 normal heart sound, no murmurs, no rub and no gallops GI normal to inspection, nondistended, normoactive bowel sounds, soft to palpation, non-tender and non-distended Extremity Extremity Narrative: Patient has severe stasis skin changes over both lower legs along with signs of chronic lymphedema over the lower legs.? Patient has several open ulcerations related to stasis over the both lower legs.? There is no purulent discharge from these areas noted at this time. Skin Skin Narrative: Multiple small open areas are noted over the patient's both lower legs.,? Stasis dermatitis changes are noted over both lower legs along with lymphedematous changes, there is slight edema over both lower legs. General Skin Exam: no breakdown Neuro oriented x3, CN's II-XII intact bilaterally, moves all extremities, no focal motor deficits and no sensory deficits noted Sensorium / Orientation: awake and alert Speech: speech normal Psych affect normal Const alert, oriented x3 and no apparent distress General Appearance: cooperative, well kempt and well developed Orientation / Consciousness: awake, oriented to person, oriented to place and oriented to time HEENT normocephalic, head/scalp atraumatic, hearing grossly normal bilaterally and moist oral mucous membranes Eyes PERRL, EOMs intact bilaterally and conjunctivae normal Neck no lymphadenopathy, supple, no JVD, thyroid normal and no carotid bruits General: trachea midline Resp normal respiratory effort, no retractions, no use of accessory muscles and clear to auscultation bilaterally Auscultation: Negative for rales, rhonchi or wheezes Cardio regular rate, regular rhythm, S1 normal heart sound, S2 normal heart sound, no murmurs, no rub and no gallops GI normal to inspection, nondistended, normoactive bowel sounds, soft to palpation, non-tender and non-distended Extremity Extremity Narrative: Patient has severe stasis skin changes over both lower legs along with signs of chronic lymphedema over the lower legs. Patient has several open ulcerations related to stasis over the both lower legs. There is no purulent discharge from these areas noted at this time. Skin Skin Narrative: Multiple small open areas are noted over the patient's both lower legs., Stasis dermatitis changes are noted over both lower legs along with lymphedematous changes, there is slight edema over both lower legs. General Skin Exam: no breakdown Neuro oriented x3, CN's II-XII intact bilaterally, moves all extremities, no focal motor deficits and no sensory deficits noted Sensorium / Orientation: awake and alert Speech: speech normal Motor Exam: strength 5/5 throughout Psych affect normal Assessment & Plan Assessment/Plan (1) Stasis dermatitis: QUALIFIERS: Laterality: bilateral Qualified Code(s): I87.2 - Venous insufficiency (chronic) (peripheral) PLAN: Plan 1. Bilateral lower leg cellulitis-possibly secondary to MRSA, continue IV Vibramycin and IV cefepime at this time, await final culture results. Wound care is seeing patient. Patient does not appear to be toxic. #2 chronic stasis changes both lower extremity-patient's legs are being wrapped, wound care is seeing patient #3 lymphedema of both lower extremities-complicates care, management, recovery, and prognosis #4 I acute on chronic debility-patient is being seen by PT and OT, he has agreed to go to a intermediate facility for short-term skilled care, I think this would benefit the patient due to the extent of his lower leg wounds and chronic lower leg lymphedema. He has been accepted at TCU at the hospital. #5 anemia-etiology unclear at this time, CBC will be monitored, no need for transfusion at this time, I will reorder the patient's CBC tomorrow morning Charges/Coding Visit Charges Inpatient E&M: 38537 Subs Hosp L2
[2022-01-20 21:00] VITALS: BP 119/60; PULSE 97; RESP 18; TEMP 37; O2SAT 97
[2022-01-20] MEDS: Docusate Sodium 100 MG Capsule PO ×2 (23:07→23:08)
[2022-01-21 03:00] VITALS: BP 128/74; PULSE 62; RESP 18; TEMP 36.7; O2SAT 100
[2022-01-21] MEDS: Nystatin Powder 15gm Bottle 1 APPLIC TOPICAL ×2 (05:58→13:27)
[2022-01-21 07:25] LABS: Absolute Lymphocyte Count 1.78 X10^3/uL (0.83-4.51); Absolute Neutrophil Count 4.7 X10^3/uL (2.0-7.7); Basophil# 0.05 X10^3/uL; Basophil% 0.6 % (0-1); Eosinophil# 0.69 X10^3/uL; Eosinophils% 8.6 % (0-5); Hematocrit 34.3 % (40-54); Hemoglobin 11.3 g/dL (13.0-16.5); Lymphocyte # 1.78 X10^3/ul (0.83-4.51); Lymphocyte % 22.2 % (19-41); Mean Corp Hgb Conc 32.9 g/dL (32-36); Mean Corpuscular Hgb 30.1 pg (27.0-32.0); Mean Corpuscular Volume 91.2 fL (80-94); NRBC Flagged by Analyzer 0 % (0-5); Neutrophil # 4.67 X10^3/uL (2.7-7.7); Neutrophil % 58.1 % (47-70); Platelet Count 333 K/mm3 (150-450); RBC Distribution Width CV 13.2 % (11.6-14.6); RBC Distribution Width SD 43.4 fl (35.1-43.9); Red Blood Count 3.76 M/mm3 (4.6-6.2)
[2022-01-21 09:00] VITALS: BP 129/71; PULSE 70; RESP 16; TEMP 36.7; O2SAT 97
[2022-01-21] MEDS: Enoxaparin 40 MG/0.4 ML Syringe SC (09:54)
[2022-01-21] MEDS: Juven (unflavored) Packet 1 PACKET PO (09:55)
[2022-01-21] MEDS: Furosemide 20 MG Tablet PO (09:55)
--- NOTE | 2022-01-21 12:48 | PCM.TXEXTCAR ---
Diet Diet Order/Speech Therapy: 01/18/22 20:19 Diet: Cardiac - Heart Healthy Food consistency:: Regular Liquid Consistency:: Regular/Thin Is pt able to select menu?: No Routine Orders/Code Status Routine Lab Work: BMP (in 5 days) Code Status: Full Code Wound(s) bilateral lower extremity: Wound Type: cluster of stasis ulcers to bilateral lower legs Dressing Change: Adaptic left posterior lower leg: Wound Type: cluster of stasis ulcers Dressing Change: Adaptic left medial ankle: Wound Type: Stasis Ulcer Dressing Change: Adaptic left anterior lower leg: Wound Type: cluster of stasis ulcers Dressing Change: Adaptic left lateral lower leg: Wound Type: cluster of stasis ulcers Dressing Change: Adaptic right lower leg: Wound Type: cluster of stasis ulcers Dressing Change: Adaptic Therapies Weight Bearing: Full weight bearing Physical Therapy: Eval and Treat Occupational Therapy: Eval and Treat Problem/Diagnosis (1) Stasis dermatitis: Status: Chronic Code(s): I83.10 - Varicose veins of unspecified lower extremity with inflammation Comment: RLE Plan 1. Bilateral lower leg cellulitis-possibly secondary to MRSA, patient will take oral Vibramycin when he is discharged to the custodial facility #2 chronic stasis changes both lower extremity-patient's legs are being wrapped, wound care is seeing patient #3 lymphedema of both lower extremities-complicates care, management, recovery, and prognosis #4 I acute on chronic debility-patient is being seen by PT and OT, he has agreed to go to a custodial facility for short-term skilled care, I think this would benefit the patient due to the extent of his lower leg wounds and chronic lower leg lymphedema. He has been accepted at TCU at the hospital. #5 anemia-etiology unclear at this time, CBC on 01/21/2022 showed his hemoglobin to be 11.3. Allergies/Procedures Done in Hospital Allergies vancomycin Allergy (Verified 01/18/22 16:14) Anaphylaxis red ariel and seizure Procedures: None Type of Care/Length of Stay Estimated LOS: Convalescent Care Less Than 30 days Type of Care Needed: Skilled Rehab Potential: Good Prognosis: Good Additional Orders/Day of Discharge H&P will serve as current which was dated: 01/18/22 Day of Discharge: 01/21/22 Dietary and Speech Recommendations Dietitian Recommendations/Changes: Continue Cardiac - Heart Healthy diet Continue 120mL Ensure Enlive 4x daily with medpass. RD will order Manohar BID with medpass. Discharge Plan Admission Admit Date/Time: 01/18/22 18:23 Primary Reason for Your Visit: Cellulitis of the legs with MRSA Attending Provider: Samuel Nunez Primary Care Provider: [facility],[place] Consulting Providers: Kandice Keenan Discharge Orders/Prescriptions Prescriptions: New acetaminophen [Tylenol] 325 mg Tablet 650 mg PO Q6H PRN PRN (Reason: Pain Score 1-10/Temp > 100.7 F) Qty: 0 0RF furosemide 20 mg Tablet 20 mg PO DAILY Qty: 0 0RF nystatin [Nyamyc] 100,000 unit/gram Powder 1 applic topical TID Qty: 0 0RF Protocol: *Topical Application Instructions APPLICATION INSTRUCTIONS: to ABD folds and groin Ensure Enlive 0.08 gram-1.5 kcal/mL Liquid 120 ml PO 4X/DAY Qty: 0 0RF Manohar (with collagen) 7-7-1.5 gram Powder In Packet 1 packet PO BIDCM Qty: 0 0RF doxycycline hyclate [Vibramycin] 100 mg capsule 100 mg PO BID Qty: 1 0RF Rx Instructions: Take for seven days, then stop-start on 01/21/22 [facility] - Disposition Disposition (needs filled in before D/C Order can be placed): [facility] Facility (1) Stasis dermatitis Qualifiers: Laterality: bilateral Qualified Code(s): I87.2 - Venous insufficiency (chronic) (peripheral)
--- NOTE | 2022-01-21 13:00 | DS.PCM_ITS ---
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 Bilateral lower leg cellulitis-possibly secondary to MRSA, patient will take oral Vibramycin when he is discharged to the longterm facility #2 chronic stasis changes both lower extremity-patient's legs are being wrapped, wound care is seeing patient #3 lymphedema of both lower extremities-complicates care, management, recovery, and prognosis #4 I acute on chronic debility-patient is being seen by PT and OT, he has agreed to go to a longterm facility for short-term skilled care, I think this would benefit the patient due to the extent of his lower leg wounds and chronic lower leg lymphedema. He has been accepted at TCU at the hospital. #5 anemia-etiology unclear at this time, CBC on 01/21/2022 showed his hemoglobin to be 11.3. Medications at Discharge Home Medications acetaminophen 325 mg tablet (Tylenol) 650 mg PO Q6H PRN PRN Pain Score 1-10/Temp > 100.7 F #0 tabs 01/21/22 arginine 7 gram-glutam 7 gram-CaHMB 1.5 [id number] oral pwd pkt (Manohar (with collagen)) 1 packet PO BIDCM nutritional supplement 01/21/22 doxycycline hyclate 100 mg capsule (Vibramycin) 100 mg PO BID cellulitis BLEs\ 01/21/22 food supplemt, lactose-reduced 0.08 gram-1.5 kcal/mL oral liquid (Ensure Enlive) 120 ml PO 4X/DAY supplement 01/21/22 furosemide 20 mg tablet 20 mg PO DAILY water pill/swelling 01/21/22 nystatin 100,000 unit/gram topical powder (Nyamyc) 1 applic topical TID skin excoration 01/21/22 Hospital Course Operations None Procedures None Summary of Care Provided Minutes Spent on Discharge: 31 Hospital Course: This 81-year-old white male was seen in the emergency room at [facility] with complaints of drainage, redness, and discomfort of his lower legs. Patient was a poor informant, he appeared to have chronic skin changes over both lower legs, there was noted to be presence of maggots crawling over his feet at the time he was admitted. Work-up in the emergency room included a CBC which showed a normal white blood cell count, examination of the legs revealed poor hygiene of the skin areas of the lower legs along with some open draining areas. Patient was started on an IV antibiotics, he was seen in consultation by the wound care nurse who obtained cultures of the area-PCR was positive for staph and also positive for MRSA. Patient was admitted to [place] [address], he was seen by PT and OT as well as the wound care nurse. Patient was felt to benefit from inpatient longterm care and he agreed to go to TCU for short-term skilled care. Patient was treated with IV cefepime and Vibramycin during his hospital stay, he did not appear toxic during the hospital stay and his blood culture was negative. Final culture results were pending at the time of razia saroj's discharge from the hospital on 01/21/2022. Patient was seen on 01/21/2022 and examined:alert, oriented x3 and no apparent distress General Appearance: cooperative, well kempt and well developed Orientation / Consciousness: awake, oriented to person, oriented to place and oriented to time HEENT normocephalic, head/scalp atraumatic and moist oral mucous membranes Eyes PERRL, EOMs intact bilaterally and conjunctivae normal Neck supple, no JVD, thyroid normal and no carotid bruits General: trachea midline Resp normal respiratory effort, no retractions, no use of accessory muscles and clear to auscultation bilaterally Auscultation: Negative for rales, rhonchi or wheezes Cardio regular rate, regular rhythm, S1 normal heart sound, S2 normal heart sound, no murmurs, no rub and no gallops GI normal to inspection, nondistended, normoactive bowel sounds, soft to palpation, non-tender and non-distended Extremity Extremity Narrative: Patient has severe stasis skin changes over both lower legs along with signs of chronic lymphedema over the lower legs.? Patient has several open ulcerations related to stasis over the both lower legs.? There is no purulent discharge from these areas noted at this time. Skin Skin Narrative: Multiple small open areas are noted over the patient's both lower legs.,? Stasis dermatitis changes are noted over both lower legs along with lymphedematous changes, there is slight edema over both lower legs. General Skin Exam: no breakdown Neuro oriented x3, CN's II-XII intact bilaterally, moves all extremities, no focal motor deficits and no sensory deficits noted Sensorium / Orientation: awake and alert Speech: speech normal Psych affect normal Patient was discharged to TCU in stable condition on 01/21/2022. Weight / BMI Weight Weight: 85 kg Body Mass Index (BMI) 27.6 ABG / Lab / Microbiology Data Result Diagrams: 01/21/22 05:50 01/19/22 04:48 Laboratory: Laboratory Results - last 24 hr 01/19/22 10:00: S.aureus Protein A PCR POSITIVE H, MRSA (PCR) POSITIVE H 01/21/22 05:50: WBC 8.0, RBC 3.76 L, Hgb 11.3 L, Hct 34.3 L, MCV 91.2, MCH 30.1, MCHC 32.9, RDW Std Deviation 43.4, RDW Coeff of Regi 13.2, Plt Count 333, MPV 9.0, Immature Gran % (Auto) 0.500, Neut % (Auto) 58.1, Lymph % (Auto) 22.2, Waller % (Auto) 10.0, Eos % (Auto) 8.6 H, Baso % (Auto) 0.6, Absolute Neuts (auto) 4.7, Absolute Lymphs (auto) 1.78, Nucleated RBC % 0 Microbiology: Microbiology 01/21/22 11:49 Nasal Secretion SARS-CoV-2 Antigen (Rapid) - Final 01/18/22 18:26 Blood Culture (Wb) - Right Forearm Blood Culture - Preliminary No growth in 48 hours. 01/18/22 17:14 Blood Culture (Wb) - Right Forearm Blood Culture - Preliminary No growth in 48 hours. 01/19/22 10:00 Wound - Leg, Right Gram Stain - Final 01/19/22 10:00 Wound - Leg, Right Wound Culture - Preliminary Staphylococcus aureus Gram positive caitlyn Meaningful Use Info Meaningful Use Diagnoses (Choose all that apply): None applicable Discharge Plan Admission Admit Date/Time: 01/18/22 18:23 Primary Reason for Your Visit: Cellulitis of the legs with MRSA Attending Provider: Samuel Nunez Primary Care Provider: [facility],[place] Consulting Providers: Kandice Keenan Discharge Orders/Prescriptions Prescriptions: New acetaminophen [Tylenol] 325 mg Tablet 650 mg PO Q6H PRN PRN (Reason: Pain Score 1-10/Temp > 100.7 F) Qty: 0 0RF No Action doxycycline hyclate [Vibramycin] 100 mg capsule 100 mg PO BID Rx Instructions: Take for seven days, then stop-start on 01/21/22 furosemide 20 mg tablet 20 mg PO DAILY nystatin [Nyamyc] 100,000 unit/gram powder 1 applic topical TID Protocol: *Topical Application Instructions APPLICATION INSTRUCTIONS: to ABD folds and groin Ensure Enlive 0.08 gram-1.5 kcal/mL liquid 120 ml PO 4X/DAY Manohar (with collagen) 7-7-1.5 gram powder in packet 1 packet PO BIDCM Referrals / Follow Up: [place] [Primary Care Provider] - Disposition Disposition (needs filled in before D/C Order can be placed): [facility] Facility Charges/Coding Visit Charges Inpatient E&M: 64409 Disch Hosp
[2022-01-21 13:34] VITALS: BP 107/50; PULSE 71; RESP 15; TEMP 36.7; O2SAT 98
--- NOTE | 2022-01-21 13:44 | CASEMGMT ---
Social Work SW in to met with pt and inform of TCU transfer. Pt voiced understanding. SW asked if any family or friends needed updated and pt declined, stating they are working and I will tell them Monday. SW faxed orders to TCU. Informed Mercedes that pt will be discharging this afternoon. PLAN: TCU, this afternoon AMADA Danielle
--- NOTE | 2022-01-21 15:35 | NURSING ---
MIDLINE TO LUE LEFT IN PER REQUEST FROM TCU NURSE
== END 2022-01-21 15:35 | disposition skilled nursing facility (03) | DRG 603 ==
LOC: ED 18:22 → MS3 19:30
PROVIDERS: Admitting Provider Student in an Organized Health Care Education/Training Program; Emergency Provider Emergency Medicine; Visit Provider Internal Medicine
DX: L03.116 Cellulitis of left lower limb (principal); B95.62 Methicillin resistant Staphylococcus aureus infection as the cause of diseases classified elsewhere; E78.5 Hyperlipidemia, unspecified; I89.0 Lymphedema, not elsewhere classified; D64.9 Anemia, unspecified; I83.11 Varicose veins of right lower extremity with inflammation; I83.12 Varicose veins of left lower extremity with inflammation; Z51.5 Encounter for palliative care; L03.115 Cellulitis of right lower limb; Z66 Do not resuscitate
CPT/HCPCS: 36415; 73590; 80048; 83605; 85025; 85610; 87040; 87070; 87077; 87186; 87205; 87426; 87640; 97110; 97162; 97166; 97530; 97535; 97802; 99283; J7030; J7040; J7050

== ENCOUNTER 2022-01-21 15:43 | Inpatient (IN) | payer MEDICARE, SELFPAY ==
[2022-01-21 15:47] VITALS: BP 99/50; PULSE 74; RESP 14; RESP 16; TEMP 36.4; O2SAT 100; BMI 28.2
[2022-01-21] MEDS: Doxycycline 100 MG CAPSULE PO (18:55)
[2022-01-21] MEDS: Juven (unflavored) Packet 1 PACKET PO (18:55)
[2022-01-21] MEDS: Nystatin Powder 15gm Bottle 1 APPLIC TOPICAL (21:48)
--- NOTE | 2022-01-21 22:14 | HP.PCM_ITS ---
HPI - General General Date of Admission: 01/21/22 Date of Service: 01/21/22 Chief Complaint: Here for rehab. HPI Narrative 01/18/2022 LISET MORENO, is a 81 Male who presents to [facility] Emergency Department with wounds. Bilateral leg wounds with malodorus discharge. WBC okay, BMP okay, X-ray negative fo osteomyelitis. Bilateral leg wounds infected. 01/18/2022 Admit to Hospital. Cefepime IV, Doxycycline IV, blood cultures, wound cultures for bilateral lower extremity cellulitis. 01/19/2022 PT/OT for Long-Term Facility. Cultures growing MRSA. Cefepime IV, Doxycycline IV for bilateral lower extremity cellulitis. Compression wrap bilateral lower extremity lymphedema. 01/20/2022 PT/OT for TCU. Wound cultures pending. 01/21/2022 Change antibiotics to oral doxycycline. 01/21/2022 Admit to TCU with debility, here for rehabilitation, strengthening, wound care prior to discharge home. Resident c/o back pain, low threshold to order MRI LS spine to evaluate for disciits, epidural abscess, lumbar osteomyelitis. [facility] Medical History DVT of leg (deep venous thrombosis) Former smoker HLD (hyperlipidemia) Iron deficiency anemia Lymphedema Migraines Personal history of prostate cancer Venous insufficiency (chronic) (peripheral) Venous stasis dermatitis Home Medications acetaminophen 325 mg tablet (Tylenol) 650 mg PO Q6H PRN PRN Pain Score 1-10/Temp > 100.7 F #0 tabs 01/21/22 [Rx Last Taken Unknown] arginine 7 gram-glutam 7 gram-CaHMB 1.5 [id number] oral pwd pkt (Manohar (with collagen)) 1 packet PO BIDCM nutritional supplement 01/21/22 [History Last Taken Unknown] doxycycline hyclate 100 mg capsule (Vibramycin) 100 mg PO BID cellulitis BLEs\ 01/21/22 [History Last Taken Unknown] food supplemt, lactose-reduced 0.08 gram-1.5 kcal/mL oral liquid (Ensure Enlive) 120 ml PO 4X/DAY supplement 01/21/22 [History Last Taken Unknown] furosemide 20 mg tablet 20 mg PO DAILY water pill/swelling 01/21/22 [History Last Taken Unknown] nystatin 100,000 unit/gram topical powder (Nyamyc) 1 applic topical TID skin excoration 01/21/22 [History Last Taken Unknown] Allergy/AdvReac Type Severity Reaction Status Date / Time vancomycin Allergy Anaphylaxis Verified 01/18/22 16:14 Social History (Updated 01/21/22 @ 22:[address] Joey Weinberg MD) household members: none Smoking Status: Never smoker alcohol intake: never substance use type: does not use ROS Constitutional Constitutional: Denies chills, fever(s) or weight gain ENT HEENT: Denies headache(s), nasal congestion or nasal discharge Cardiovascular Cardiovascular: Denies chest pain or palpitations Respiratory/Chest Respiratory/Chest: Denies cough, excessive phlegm production or shortness of breath with exertion Gastrointestinal Gastrointestinal: Denies abdominal pain, nausea or vomiting Genitourinary Genitourinary: Denies dysuria Musculoskeletal Musculoskeletal: Denies joint pain or joint swelling Integumentary Integumentary: Denies rash or wounds Neurologic Neurologic: Denies focal weakness, numbness or tingling Psychiatric Psychiatric: Denies anxiety, auditory hallucinations, depression, homicidal ideation or suicidal ideation Vital Signs Vital Signs Vital Signs: 01/21/22 15:47 01/21/22 15:47 Temperature 97.6 F L Temperature Source Temporal Pulse Rate 74 74 Pulse Rhythm Regular Pulse Strength Normal (2+) Respiratory Rate 14 16 Respiratory Effort Normal Non-Labored Blood Pressure 99/50 L Blood Pressure Mean 66 Blood Pressure Source Monitor Blood Pressure Position Semi-Fowlers Blood Pressure Location Left Arm Pulse Ox 100 100 Oxygen Delivery Method Room Air Room Air Weight Weight: 86.772 kg Body Mass Index (BMI) 28.2 Physical Exam Const alert General Appearance: cooperative HEENT normocephalic Eyes PERRL and EOMs intact bilaterally Neck supple, no JVD and no carotid bruits Resp normal respiratory effort, normal air movement and clear to auscultation bilaterally Cardio regular rate and regular rhythm GI normal to inspection, nondistended, normoactive bowel sounds, non-tender and non-distended Extremity normal capillary refill Extremity Narrative: Bilateral lower extremities dressed. General Extremity: edema Skin no rashes or lesions noted General Skin Exam: no breakdown Psych affect normal Appearance: appropriate Assessment & Plan Assessment/Plan (1) Debility: (2) Stasis dermatitis: QUALIFIERS: Laterality: bilateral Qualified Code(s): I87.2 - Venous insufficiency (chronic) (peripheral) (3) Open wound of right lower leg: (4) Open wound of left lower leg: QUALIFIERS: Encounter type: subsequent encounter Qualified Code(s): S81.802D - Unspecified open wound, left lower leg, subsequent encounter (5) Lymphedema of both lower extremities: (6) Cellulitis of both lower extremities: (7) Iron deficiency anemia: (8) History of deep vein thrombosis: PLAN: Plan 81 year old male with below past medical history hospitalized for bilateral lower extremity wounds, bilateral lower extremity cellulitis, admitted to TCU with debility, here for rehabilitation, strengthening, wound care, prior to discharge home alone. * Debility - PT/OT. * Cognition - ST. * Pain - Tylenol 1000mg q6h prn pain (1-10). * Bowel - senna/colace 1 tablet bid, Dulcolax 10mg daily prn. * Adult immunization - Administer pneumonia vaccine, covid19 vaccine, flu vaccine. * DVT prophylaxis - hold. * MRSA cellulitis bilateral extremities - Doxycycline 100mg bid thru 01/28/2022. * Bilateral lower extremity wounds - consult wound nurse. * Nutrition - Ensure Enlive 120ml 4x/day. * Lymphedema - Furosemide 20mg daily. * Nutrition - Manohar 1 packet po bidcm. * Tinea Corporis - Nystatin powder topical tid. * Low back pain - MRSA, low threshold for MRI LS spine to evaluate for disciitis, lumbar epidural abscess, lumbar osteomyelitis.
[2022-01-22] MEDS: Furosemide 20 MG Tablet PO (06:13)
[2022-01-22] MEDS: Doxycycline 100 MG CAPSULE PO ×2 (06:14→17:32)
[2022-01-22] MEDS: Nystatin Powder 15gm Bottle 1 APPLIC TOPICAL ×3 (06:15→20:20)
[2022-01-22 07:17] LABS: Absolute Lymphocyte Count 1.58 X10^3/uL (0.83-4.51); Absolute Neutrophil Count 4.9 X10^3/uL (2.0-7.7); Basophil# 0.05 X10^3/uL; Basophil% 0.6 % (0-1); Eosinophil# 0.53 X10^3/uL; Eosinophils% 6.8 % (0-5); Hematocrit 34.3 % (40-54); Hemoglobin 11.3 g/dL (13.0-16.5); Lymphocyte # 1.58 X10^3/ul (0.83-4.51); Lymphocyte % 20.2 % (19-41); Mean Corp Hgb Conc 32.9 g/dL (32-36); Mean Corpuscular Hgb 29.9 pg (27.0-32.0); Mean Corpuscular Volume 90.7 fL (80-94); Mean Platelet Vol. 8.4 fl (6.2-12.0); Monocyte# 0.72 X10^3/uL; Monocyte% 9.2 % (0-10); NRBC Flagged by Analyzer 0 % (0-5); Neutrophil # 4.91 X10^3/uL (2.7-7.7); Neutrophil % 62.8 % (47-70); Platelet Count 300 K/mm3 (150-450); RBC Distribution Width CV 13.2 % (11.6-14.6); RBC Distribution Width SD 43.7 fl (35.1-43.9); Red Blood Count 3.78 M/mm3 (4.6-6.2); White Blood Count 7.8 K/mm3 (4.4-11.0)
[2022-01-22 07:54] LABS: Anion Gap 6 (5-15); BUN 19 mg/dL (7-18); BUN/Creat Ratio 28.4 RATIO (10-20); Calcium,Total 8.7 mg/dL (8.5-10.1); Chloride 104 mmol/L (98-107); Creatinine, Serum 0.67 mg/dL (0.70-1.30); EST Glomerular Filtration Rate 121 mL/min (>60); Est Glom Filt Rate - Afr Amer 147 mL/min (>60); Estimated Creatinine Clearance 58.92 ml/min; Glucose 99 mg/dL (74-106); Potassium 3.8 mmol/L (3.5-5.1); Sodium Level 138 mmol/L (136-145)
[2022-01-22] MEDS: Juven (unflavored) Packet 1 PACKET PO ×2 (08:05→17:32)
[2022-01-22 10:00] VITALS: PULSE 77; RESP 18; O2SAT 96
[2022-01-22] MEDS: Pneumococcal Vaccine 20 Valent 0.5 ML Syringe IM (10:31)
[2022-01-22] MEDS: Tuberculin,Purif.prot.deriv. 50 TU/ML Vial 0.1 ML ID (10:33)
--- NOTE | 2022-01-22 10:47 | NURSING ---
Patient given Prevnar 20 vaccine at this time. Patient tolerated well. Explained the reason for vaccine and possible side effects/reactions. Will monitor.
[2022-01-22 15:19] VITALS: BP 110/55; PULSE 77; RESP 18; TEMP 36.7; O2SAT 96
[2022-01-23] MEDS: Doxycycline 100 MG CAPSULE PO ×2 (05:45→16:52)
[2022-01-23] MEDS: Furosemide 20 MG Tablet PO (05:45)
[2022-01-23] MEDS: Nystatin Powder 15gm Bottle 1 APPLIC TOPICAL ×3 (05:45→20:33)
[2022-01-23] MEDS: Juven (unflavored) Packet 1 PACKET PO ×2 (07:55→16:52)
[2022-01-23] MEDS: Acetaminophen 500 MG Tablet 1000 MG PO (11:14)
[2022-01-23 16:00] VITALS: BP 107/63; PULSE 66; RESP 18; TEMP 36.5; O2SAT 98
--- NOTE | 2022-01-23 18:15 | NURSING ---
Received call from Dr. Weinberg asking if pt was having low back pain, per CELENA Floyd pt has c/o lower back pain, received order for Xray of lumbar/sacral. Order repeated and added.
--- NOTE | 2022-01-23 19:30 | RAD_ITS ---
STUDY: X-RAY - LUMBAR SPINE REASON FOR EXAM: Male, 81 years old. Lower back pain TECHNIQUE: 2 view(s) of the lumbar spine were obtained. COMPARISON: None FINDINGS: Anterior wedging T12, L1 and L2. Mild loss of height at L4. Normal lumbar lordosis. Mild levoconvex scoliosis. Retrolisthesis at L2-3 and L3-4. Anterior listhesis at L4-5. There is diffuse demineralization with multi-level endplate spondylosis. There is multi-level degenerative disc disease with multi-level disc space narrowing. Multilevel vacuum disc phenomenon. The soft tissue structures are unremarkable. RAD/Lumbar Spine 2 or 3 Views IMPRESSION: Multiple mild compression fractures age-indeterminate. One spondylolisthesis L4-5 and retrolisthesis L2-3 and L3-4. Multilevel degenerative disc disease and spondylosis. Mild scoliosis. Electronically Signed: Mikal Cooley MD at 21:20 EDT ,
[2022-01-23 21:49] VITALS: PULSE 74; RESP 18; O2SAT 93
--- NOTE | 2022-01-24 01:07 | NURSING ---
Dressings done to patients bilateral lower extremities according to order. Pt compliant with no c/o pain.
[2022-01-24] MEDS: Nystatin Powder 15gm Bottle 1 APPLIC TOPICAL ×3 (05:20→20:44)
[2022-01-24] MEDS: Furosemide 20 MG Tablet PO (05:20)
[2022-01-24] MEDS: Doxycycline 100 MG CAPSULE PO ×2 (05:20→16:30)
[2022-01-24] MEDS: Juven (unflavored) Packet 1 PACKET PO ×2 (08:17→16:30)
--- NOTE | 2022-01-24 11:56 | WOUNDNOTE ---
wound photo: left lower leg
--- NOTE | 2022-01-24 11:57 | WOUNDNOTE ---
wound photo: left lateral lower leg
--- NOTE | 2022-01-24 11:57 | WOUNDNOTE ---
wound photo: right lower leg
--- NOTE | 2022-01-24 12:38 | PCM.PN.DRR ---
TCU RX Drug Regimen Review Subjective: 81 YOM admitted to TCU for rehabilition post hospitalization for bilateral leg wounds, wound infection. Here for strengthening prior to discharge home. Objective: Allergies vancomycin Allergy (Verified 01/18/22 16:14) Anaphylaxis red ariel and seizure Current Medications Generic Name Dose Route Start Last Admin Trade Name Freq PRN Reason Stop Dose Admin Acetaminophen 1,000 mg 01/21/22 22:30 01/23/22 11:14 Acetaminophen 500 Mg Tablet PO 1,000 mg Q6H PRN PRN Administration Pain Score 1-10 Doxycycline Monohydrate 100 mg 01/21/22 18:00 01/24/22 05:20 Doxycycline 100 Mg Capsule PO 01/28/22 18:01 100 mg BID KAY Administration Furosemide 20 mg 01/22/22 06:00 01/24/22 05:20 Furosemide 20 Mg Tablet PO 20 mg DAILY KAY Administration L-Arginine/L-Glutamine/Calcium HMB 1 packet 01/21/22 17:00 01/24/22 08:17 Manohar (Unflavored) Packet PO 1 packet BIDCM KAY Administration Nutritional Formula (Lactose Free) 120 ml 01/21/22 17:00 01/24/22 11:13 Ensure Enlive 120 Ml Liquid PO 120 ml 4X/DAY KAY Administration Nystatin 1 applic 01/21/22 22:00 01/24/22 11:23 Nystatin Powder 15gm Bottle TOPICAL 1 applic TID KAY Administration Protocol Sodium Chloride 10 - 40 ml 01/21/22 22:24 0.9% Saline Lock 10 Ml Syringe IV UD PRN Midline Flush Sodium Chloride 10 - 40 ml 01/21/22 22:24 0.9 % Nacl (Sterile) Posiflush 10 Ml IV UD PRN Port access or dressing change Tuberculin PPD 0.1 ml 01/29/22 10:00 Tuberculin,Purif.Prot.Deriv. 50 Tu/Ml Vial ID 01/29/22 10:01 X1 ONE Problem List (Last Reviewed 01/21/22 @ 22:[address] Joey Weinberg MD) History of deep vein thrombosis (Acute) Iron deficiency anemia (Acute) Cellulitis of both lower extremities (Acute) Debility (Acute) Stasis dermatitis (Chronic) Open wound of right lower leg (Chronic) Open wound of left lower leg (Chronic) Lymphedema of both lower extremities (Chronic) Vital Signs Temp Pulse Resp BP Pulse Ox O2 Del Method 97.7 F L 74 18 107/63 93 Room Air 01/23/22 16:00 01/23/22 21:49 01/23/22 21:49 01/23/22 16:00 01/23/22 21:49 01/23/22 21:49 Oxygen Delivery Method Room Air Weight: 86.772 kg Body Mass Index (BMI) 28.2 Sodium 138 mmol/L (136-145) 01/22/22 07:02 Potassium 3.8 mmol/L (3.5-5.1) 01/22/22 07:02 Chloride 104 mmol/L (98-107) 01/22/22 07:02 Carbon Dioxide 28.0 mmol/L (21.0-32.0) 01/22/22 07:02 Anion Gap 6 (5-15) 01/22/22 07:02 BUN 19 mg/dL (7-18) H 01/22/22 07:02 Creatinine 0.67 mg/dL (0.70-1.30) L 01/22/22 07:02 Est GFR (MDRD) Af Amer 147 mL/min (>60) 01/22/22 07:02 Est GFR (MDRD) Non-Af 121 mL/min (>60) 01/22/22 07:02 BUN/Creatinine Ratio 28.4 RATIO (10-20) H 01/22/22 07:02 Glucose 99 mg/dL (74-106) 01/22/22 07:02 Assessment/Plan: 1. Pain - Tylenol 1000mg q6h prn pain (1-10). Please continue to monitor for increased pain, and PRN usage. Resident has used 2 tablets for a pain score of 2 for headache. Post med pain still 2.? 2. MRSA cellulitis bilateral extremities - Doxycycline 100mg bid thru 01/28/2022. Culture data from 01/19 indicating MRSA, sensitive to doxycycline. Current antibiotic therapy is appropriate at this time. Please continue to monitor for S/S of infection and diarrhea, resolution of infection, any new culture data. 3. Lymphedema - Furosemide 20mg daily. Please continue to monitor for S/S of edema, potassium (last 3.8mmol/L), sodium (last 138mmol/L) and renal function Assessment/Plan for indications treated with psychotropic medications: Patient is not on psychotropic medication at this time. Medical chart and medication regimen reviewed. The following medication irregularities or issues were identified: No issues were identified based on current medication therapies. Date of Note:: 01/24/22
[2022-01-24 15:01] VITALS: BP 108/59; PULSE 76; RESP 14; TEMP 36.5; O2SAT 97
--- NOTE | 2022-01-24 16:49 | CASEMGMT ---
Social Work Met with patient to complete initial assessment. Introduced self and role. Discussed code status and MOLST form. Pt wishes to be DNR-CC. DNR form signed by pt. DNR and MOLST form communicated to nursing and Dr. Pt states he has HCPOA and LW documents and to contact [facility] in [place]. Verified/updated contacts. Pt stated he has two daughters, Jovan Obrien and Alix Obrien, but is unable to tell this worker of their contact information as pt does not have his cell phone. Pt stated his cell phone is at home, and SW can contact neighbor, Stanford, to get pts cell phone. SW inquired further about daughters involvement. Pt stated, dtr Jovan, has been coming to help him at home and he would pay her $100-200 to make me supper, get my groceries, shave, make the bed. She has jobs but just temporary jobs, but she's sick now. Explored further and pt disclosed dtr has a hx of drugs and alcohol. Pt is unsure where pt is living or doing now and could not confirm if dtr knew pt was admitted. SW to follow up on this information to safely plan for discharge. Kristin Coronado, STORY WRITER HAND ETCHER
--- NOTE | 2022-01-24 17:32 | NURSING ---
Family made aware of positive staff member.
[2022-01-25] MEDS: 0.9 % NaCl (Sterile) Posiflush 10 mL IV (05:42)
[2022-01-25] MEDS: Nystatin Powder 15gm Bottle 1 APPLIC TOPICAL ×2 (05:42→14:35)
[2022-01-25] MEDS: Furosemide 20 MG Tablet PO (05:43)
[2022-01-25] MEDS: Doxycycline 100 MG CAPSULE PO ×2 (05:43→17:00)
[2022-01-25] MEDS: Juven (unflavored) Packet 1 PACKET PO ×2 (08:29→16:58)
--- NOTE | 2022-01-25 13:25 | CASEMGMT ---
Social Work Contacted neighbor, Stanford, to get further information at pt hx. Stanford explained he has been helping pt since April 2021 when other neighbor who was helping pt, . Per Stanford, pt knocked on Stanford's door one night stating he locked himself out of the house and needed assistance getting back in. Stanford states, since then, Stanford has been helping with bills, ensure pt has food, getting pt's mail, has a spare carrasquillo to the pt's house. Stanford states the house is not cluttered but needs deep cleaned. Stanford has been attempting to clean the house for pt since pt has been in the hospital as Stanford is the one who brought pt to the ED. Stanford states he called [facility]PS in July but does not appear as though follow up was provided. Stanford explains he has noted pt having memory issues for the last 6 months and is concerned about pt living at home alone, especially, will no consistent support. Stanford explained several instances where pt was having auditory and visual hallucinations at home and called Stanford or the etl analyst developer to check on a burglar in the home. DAHLIA inquired about the two daughters. Stanford states he has the dtr, Jovan's phone number and has been in contact with her. Dtr started helping in out periodically, but Stanford received a text message from dtr on January 10 stating dtr has a heart attack and was admitted to [facility], and has not heard from dtr since. Stanford stated dtr has alledgedly been involved with drugs, theft and burglary. Stanford provided SW with phone number. Stanford states the oldest dtr, Alix, has not been in contact with pt since 2006. Stanford agreed to bring pt his cell phone this week when he visits. DAHLIA thanked Stanford for time and information. Contacted [employer] and received pts advanced directives via email. [facility] states Medical Claims Examiner Dinh Shepherd is POA. DAHLIA spoke to Medical Claims Examiner Kropf to update him on pt's current cognitive and medical status. Att. Shepherd inquired about dtrs involvement. Provided information this worker received from pt and neighbor. Att. Shepherd requested this worker attempt to make contact with dtr. DAHLIA explained IDT recommending pt DC to a LTC SNF. Att. agreed. SW sent list of SNF providers including quality and resource use data and consistent with the patient?s preferred geographic region, medical needs, and insurance network via [employer]. SW educated to financial liability with Medicare and Medicaid for LTC. SW offered to provide Medicaid application for Att. Joao to complete to determine eligibility. Att. agreed to have sent via email as well. SW thanked AttJosephine Shepherd for his time and assistance. SW contacted dtr. Dtr was unaware pt was in the hospital/TCU. Dtr states she last spoke to pt on January 04 and was admitted to the hospital for a heart attack on January 09. SW inquired further about dtr's assistance with pt. Dtr explained she now works full-time at the [employer] but it is a lot of walking and unsure how much longer I can do this. I've had bronchitis and then the COVID. I don't know why I keep getting sick. I don't smoke cigarettes or do drugs or nothing so they [the hospital] knows I'm not crazy. Dtr stated she was assisting with cleaning pt's house, getting him groceries and wrapping pts legs because she was a nurse's aid for 14 years. Dtr states he [pt] doesn't take care of nothing. I told him he needed to quit being mean to people because he's going to need them one day. I do everything. My sister does nothing (dtr confirms sister is estranged) I keep telling him he needs to get a car and start taking care of things himself. He has $30,0000 but won't go pick out no damn car. SW inquired about neighbor, Stanford. Dtr reports Stanford mows the lawn and takes out the trash and that's it but he's a nice rosalie. Dtr states she will visit pt soon, but can't help pt right now d/t her health issues. SW appreciative of information. SW to continue to follow for safe discharge planning. Kristin Coronado, EMPLOYMENT TRAINING SPECIALIST CORE DRILLER HELPER
[2022-01-25 14:29] VITALS: BP 102/56; PULSE 72; RESP 14; TEMP 36.7; O2SAT 97
[2022-01-25] MEDS: COVID-19 VACC, MRNA(PFIZER)/PF 30 MCG/0.3 ML SYRINGE IM (14:44)
--- NOTE | 2022-01-25 17:32 | NURSING ---
Patient and family made aware of positive staff member.
[2022-01-25] MEDS: 0.9% Saline Lock 10 ML Syringe IV (20:12)
[2022-01-25 20:23] VITALS: PULSE 87; RESP 20; O2SAT 95
[2022-01-26 05:44] VITALS: BP 106/56; PULSE 65
[2022-01-26] MEDS: Doxycycline 100 MG CAPSULE PO ×2 (05:45→17:18)
[2022-01-26] MEDS: Furosemide 20 MG Tablet PO (05:45)
[2022-01-26] MEDS: Juven (unflavored) Packet 1 PACKET PO ×2 (07:51→17:18)
--- NOTE | 2022-01-26 09:02 | CASEMGMT ---
Social Work IDT met with patient for care plan meeting. Discussed patient's progress in PT/OT/ST/SN. Explained Medicare benefit. Explained pt does not have secondary insurance; day 21 to start copays is 02/10 at about $195/day. Explained pt spoke with HCPOA, dtr and neighbor. HCPOA will be assisting with DC plans. IDT expressed concerns with pt to return home and recommending pt DC to SNF for continued care. HCPOA assisting with Medicaid application to determine legibility for SNF coverage. Pt expressed understanding and agreeable to HCPOA assisting with DC decisions. SW to continue to follow. Kristin Coronado MSW NURSING STAFF DEVELOPMENT COORDINATOR
[2022-01-26 14:26] VITALS: BP 111/54; PULSE 71; RESP 14; TEMP 36.6; O2SAT 97
--- NOTE | 2022-01-26 16:16 | NURSING ---
Patient and family aware of a resident that tested positive for covid
[2022-01-26 20:08] VITALS: PULSE 71; RESP 18; O2SAT 98
[2022-01-26] MEDS: 0.9% Saline Lock 10 ML Syringe IV (20:29)
[2022-01-27] MEDS: Furosemide 20 MG Tablet PO (06:00)
[2022-01-27] MEDS: Doxycycline 100 MG CAPSULE PO ×2 (06:00→17:24)
[2022-01-27] MEDS: Juven (unflavored) Packet 1 PACKET PO ×2 (09:38→17:24)
[2022-01-27 14:26] VITALS: BP 105/50; PULSE 74; RESP 14; TEMP 36.8; O2SAT 97
--- NOTE | 2022-01-27 18:03 | NURSING ---
Pt and family updated on positive Covid employee.
[2022-01-27 21:00] VITALS: PULSE 86; O2SAT 96
[2022-01-28] MEDS: Furosemide 20 MG Tablet PO (05:51)
[2022-01-28] MEDS: Doxycycline 100 MG CAPSULE PO ×2 (05:51→16:47)
[2022-01-28] MEDS: Juven (unflavored) Packet 1 PACKET PO ×2 (07:52→16:47)
--- NOTE | 2022-01-28 11:03 | NURSING ---
Small Engine Mechanic Note: MDS Section F complete.
[2022-01-28 15:20] VITALS: BP 124/67; PULSE 70; RESP 16; TEMP 37.4; O2SAT 98
--- NOTE | 2022-01-28 15:51 | CASEMGMT ---
Social Work SW spoke with ip technology transactions attorney 01/27 to confirm receipt of SNF list and MARTINE muriel. Reel System Operator did not receive - SW resent. BIMS (02/10) and PHQ-9 (06/24) completed for MDS assessment. Kristin Coronado MSW HOSPITAL STAFF PHARMACIST
[2022-01-28] MEDS: Ensure Plus High Protein 120 ML LIQUID PO (17:38)
[2022-01-28] MEDS: 0.9% Saline Lock 10 ML Syringe IV (17:39)
[2022-01-28 22:00] VITALS: PULSE 75; O2SAT 96
[2022-01-29] MEDS: Furosemide 20 MG Tablet PO (06:20)
[2022-01-29 08:04] LABS: Absolute Lymphocyte Count 1.53 X10^3/uL (0.83-4.51); Absolute Neutrophil Count 4.5 X10^3/uL (2.0-7.7); Basophil# 0.04 X10^3/uL; Basophil% 0.6 % (0-1); Eosinophil# 0.49 X10^3/uL; Eosinophils% 6.7 % (0-5); Hematocrit 33.1 % (40-54); Hemoglobin 10.6 g/dL (13.0-16.5); Lymphocyte # 1.53 X10^3/ul (0.83-4.51); Lymphocyte % 21.1 % (19-41); Mean Corpuscular Hgb 29.3 pg (27.0-32.0); Mean Corpuscular Volume 91.4 fL (80-94); Monocyte# 0.67 X10^3/uL; Monocyte% 9.2 % (0-10); NRBC Flagged by Analyzer 0 % (0-5); Platelet Count 245 K/mm3 (150-450); RBC Distribution Width CV 13.7 % (11.6-14.6); RBC Distribution Width SD 46.2 fl (35.1-43.9); Red Blood Count 3.62 M/mm3 (4.6-6.2); White Blood Count 7.3 K/mm3 (4.4-11.0)
[2022-01-29 08:14] LABS: Anion Gap 6 (5-15); BUN 30 mg/dL (7-18); BUN/Creat Ratio 50.1 RATIO (10-20); Calcium,Total 8.2 mg/dL (8.5-10.1); Chloride 104 mmol/L (98-107); EST Glomerular Filtration Rate 138 mL/min (>60); Est Glom Filt Rate - Afr Amer 167 mL/min (>60); Estimated Creatinine Clearance 58.92 ml/min; Glucose 92 mg/dL (74-106); Potassium 3.9 mmol/L (3.5-5.1); Sodium Level 137 mmol/L (136-145)
[2022-01-29] MEDS: Juven (unflavored) Packet 1 PACKET PO ×2 (08:21→17:07)
[2022-01-29] MEDS: Tuberculin,Purif.prot.deriv. 50 TU/ML Vial 0.1 ML ID (11:09)
[2022-01-29] MEDS: 0.9% Saline Lock 10 ML Syringe IV ×2 (11:30→20:15)
[2022-01-29] MEDS: Ensure Plus High Protein 120 ML LIQUID PO ×3 (11:32→20:12)
[2022-01-29 11:34] VITALS: PULSE 70; RESP 16; O2SAT 93
[2022-01-29 15:06] VITALS: BP 125/68; PULSE 72; RESP 16; TEMP 2.5; TEMP 36.5; O2SAT 92
[2022-01-30] MEDS: Furosemide 20 MG Tablet PO (05:47)
[2022-01-30] MEDS: Ensure Plus High Protein 120 ML LIQUID PO ×4 (05:47→21:04)
[2022-01-30] MEDS: Juven (unflavored) Packet 1 PACKET PO ×2 (08:02→16:03)
[2022-01-30 16:00] VITALS: BP 108/57; PULSE 67; RESP 18; TEMP 36.6; O2SAT 98
[2022-01-30] MEDS: 0.9% Saline Lock 10 ML Syringe IV ×2 (16:06→21:04)
[2022-01-30 20:00] VITALS: PULSE 75; RESP 18; O2SAT 98
[2022-01-31] MEDS: Ensure Plus High Protein 120 ML LIQUID PO ×4 (04:46→20:06)
[2022-01-31] MEDS: Furosemide 20 MG Tablet PO (04:46)
[2022-01-31] MEDS: Juven (unflavored) Packet 1 PACKET PO ×2 (07:55→16:40)
[2022-01-31 10:50] VITALS: PULSE 74; RESP 16; O2SAT 97
[2022-01-31 16:00] VITALS: BP 96/53; PULSE 67; RESP 22; TEMP 36.3; O2SAT 93
[2022-02-01] MEDS: Ensure Plus High Protein 120 ML LIQUID PO ×4 (05:34→20:32)
[2022-02-01] MEDS: Furosemide 20 MG Tablet PO (05:35)
[2022-02-01] MEDS: Juven (unflavored) Packet 1 PACKET PO ×2 (08:13→17:38)
--- NOTE | 2022-02-01 10:44 | MDS.RN ---
Information for the mds was obtained from review of the clinical record, interview of resident, staff, and direct observation of resident's care.
--- NOTE | 2022-02-01 11:52 | CASEMGMT ---
Addendum entered by Kristin Coronado 02/02/22 11:25: [facility] state [facility]. Votator Machine Operator received MARTINE muriel via email but did not receive SNF list. SNF list resent to email address via [employer]. Encouraged state attorney to have SNF choices and MARTINE muriel returned to SW by end of day 02/03. Votator Machine Operator expressed understanding. SW to continue to follow. Original Note: Social Work SW left voicemail with [facility] as no selections for SNFs have been made nor has the MARTINE muriel been completed. Day 21 is 02/10. ESDRAS Pinto
--- NOTE | 2022-02-01 12:05 | WOUNDNOTE ---
wound photo: right lower leg
--- NOTE | 2022-02-01 12:06 | WOUNDNOTE ---
wound photo: left medial ankle
--- NOTE | 2022-02-01 12:06 | WOUNDNOTE ---
wound photo: left lower leg
[2022-02-01 15:42] VITALS: BP 102/48; PULSE 71; RESP 14; O2SAT 94
[2022-02-01 16:10] VITALS: TEMP 36.5
[2022-02-01 21:00] VITALS: PULSE 74; RESP 16; O2SAT 94
[2022-02-02] MEDS: Ensure Plus High Protein 120 ML LIQUID PO ×4 (05:14→20:07)
[2022-02-02] MEDS: Furosemide 20 MG Tablet PO (05:14)
[2022-02-02] MEDS: Juven (unflavored) Packet 1 PACKET PO ×2 (08:44→18:48)
[2022-02-02 15:12] VITALS: BP 110/59; PULSE 66; RESP 14; TEMP 36.7; O2SAT 97
[2022-02-02 20:00] VITALS: PULSE 65; RESP 14; O2SAT 94
[2022-02-02] MEDS: 0.9% Saline Lock 10 ML Syringe IV (20:30)
[2022-02-03] MEDS: Furosemide 20 MG Tablet PO (05:08)
[2022-02-03] MEDS: Ensure Plus High Protein 120 ML LIQUID PO ×4 (05:08→21:42)
[2022-02-03] MEDS: Juven (unflavored) Packet 1 PACKET PO ×2 (09:03→16:30)
[2022-02-03 15:02] VITALS: BP 107/55; PULSE 71; RESP 14; TEMP 36.3; O2SAT 96
--- NOTE | 2022-02-03 15:12 | CASEMGMT ---
Addendum entered by Kristin Coronado 02/04/22 15:14: Left voicemail for admission specialist requesting SNF choices and MARTINE application. Original Note: Social Work Email sent to admission specialist to follow up on SNF choices and MARTINE application reminding admission specialist of EDC 02/10 or pt will have to pay privately for copays. SW to continue to follow. Kristin Coronado, ESDRAS COLLINSW
[2022-02-03] MEDS: 0.9% Saline Lock 10 ML Syringe IV (17:02)
[2022-02-03 22:00] VITALS: PULSE 67; RESP 16; O2SAT 98
[2022-02-04] MEDS: Furosemide 20 MG Tablet PO (05:36)
[2022-02-04] MEDS: Ensure Plus High Protein 120 ML LIQUID PO ×4 (05:36→20:00)
[2022-02-04] MEDS: 0.9% Saline Lock 10 ML Syringe IV ×2 (05:37→19:55)
[2022-02-04] MEDS: Juven (unflavored) Packet 1 PACKET PO ×2 (10:20→17:24)
[2022-02-04 16:00] VITALS: BP 108/62; PULSE 74; RESP 16; TEMP 36.6; O2SAT 97
[2022-02-04 20:06] VITALS: PULSE 76; RESP 18; O2SAT 98
[2022-02-05] MEDS: Furosemide 20 MG Tablet PO (05:38)
[2022-02-05] MEDS: Ensure Plus High Protein 120 ML LIQUID PO ×4 (05:38→20:21)
[2022-02-05] MEDS: Juven (unflavored) Packet 1 PACKET PO ×2 (08:06→17:14)
[2022-02-05 08:47] LABS: Absolute Lymphocyte Count 1.49 X10^3/uL (0.83-4.51); Absolute Neutrophil Count 4.3 X10^3/uL (2.0-7.7); Basophil# 0.03 X10^3/uL; Basophil% 0.4 % (0-1); Eosinophil# 0.51 X10^3/uL; Eosinophils% 7.3 % (0-5); Hematocrit 34.9 % (40-54); Hemoglobin 11.2 g/dL (13.0-16.5); Lymphocyte # 1.49 X10^3/ul (0.83-4.51); Lymphocyte % 21.3 % (19-41); Mean Corp Hgb Conc 32.1 g/dL (32-36); Mean Corpuscular Hgb 29.5 pg (27.0-32.0); Mean Corpuscular Volume 91.8 fL (80-94); Monocyte# 0.68 X10^3/uL; Monocyte% 9.7 % (0-10); NRBC Flagged by Analyzer 0 % (0-5); Neutrophil # 4.26 X10^3/uL (2.7-7.7); Neutrophil % 60.9 % (47-70); Platelet Count 256 K/mm3 (150-450); RBC Distribution Width CV 14.2 % (11.6-14.6); RBC Distribution Width SD 47.2 fl (35.1-43.9)
[2022-02-05 09:06] LABS: Anion Gap 6 (5-15); BUN 28 mg/dL (7-18); BUN/Creat Ratio 41.4 RATIO (10-20); Calcium,Total 8.5 mg/dL (8.5-10.1); Chloride 105 mmol/L (98-107); Creatinine, Serum 0.68 mg/dL (0.70-1.30); EST Glomerular Filtration Rate 120 mL/min (>60); Est Glom Filt Rate - Afr Amer 145 mL/min (>60); Estimated Creatinine Clearance 58.92 ml/min; Glucose 118 mg/dL (74-106); Sodium Level 137 mmol/L (136-145)
[2022-02-05] MEDS: 0.9% Saline Lock 10 ML Syringe IV ×2 (11:47→20:23)
[2022-02-05 14:30] VITALS: BP 96/52; PULSE 68; RESP 18; TEMP 36.4; O2SAT 94
[2022-02-06] MEDS: Ensure Plus High Protein 120 ML LIQUID PO ×4 (05:28→20:56)
[2022-02-06] MEDS: Furosemide 20 MG Tablet PO (05:28)
[2022-02-06] MEDS: Juven (unflavored) Packet 1 PACKET PO ×2 (07:57→16:47)
--- NOTE | 2022-02-06 15:47 | NURSING ---
Updated Dr. Weinberg that we are no longer using Midline and if okay to discontinue. Per Dr. Weinberg okay to Discontinue Midline.
[2022-02-06 15:49] VITALS: BP 111/59; PULSE 67; RESP 16; TEMP 36.6; O2SAT 94
[2022-02-06 20:45] VITALS: PULSE 69; RESP 16; O2SAT 97
--- NOTE | 2022-02-06 20:59 | NURSING ---
Patient refused to have dressings to bilateral legs changed this evening. Stated that he doesn't have to have them changed daily. Reviewed orders with him, but he is adamant that they not be changed. Explained the risks of not changing dressings. He verbalized understanding and stated that Chelsi, the wound nurse will change them tomorrow. Will update wound nurse.
[2022-02-07] MEDS: Furosemide 20 MG Tablet PO (05:06)
[2022-02-07] MEDS: Ensure Plus High Protein 120 ML LIQUID PO ×3 (05:06→17:59)
--- NOTE | 2022-02-07 08:23 | CASEMGMT ---
Addendum entered by Kristin Coronado 02/07/22 15:09: Spoke with pt to update on DC plans. Explained IDT is not recommending DC home at this time due to wounds, being home alone with no assistance, and reeducated to insurance coverage. Pt initially expressed frustration with not returning home, but did state he will go to a SNF as long as it's not [facility] - I was there before and my DR pulled me out of there. SW agreed to remove [facility] from referral list and keep pt updated, but EDC 02/10. Original Note: Social Work Received voicemail from consumer attorney with SNF choices - 1. [facility], 2. [facility], 3. [facility], 4. [facility], 5. [facility]. Chemical Plant Worker stated he is working on the MARTINE application and will return it to this worker once completed. SW made referrals today to SNFs via [facility]. Kristin Coronado, ESDRAS [facility]
[2022-02-07] MEDS: Juven (unflavored) Packet 1 PACKET PO ×2 (09:34→17:59)
[2022-02-07 10:00] VITALS: PULSE 73; RESP 16; O2SAT 97
--- NOTE | 2022-02-07 14:38 | WOUNDNOTE ---
wound photo: left lower leg
--- NOTE | 2022-02-07 14:38 | WOUNDNOTE ---
wound photo: left lateral lower leg
[2022-02-07 14:39] VITALS: BP 119/63; PULSE 75; RESP 20; TEMP 36.1; O2SAT 94
--- NOTE | 2022-02-07 14:39 | WOUNDNOTE ---
wound photo: right lower leg
[2022-02-08] MEDS: Furosemide 20 MG Tablet PO (05:05)
[2022-02-08] MEDS: Ensure Plus High Protein 120 ML LIQUID PO ×4 (05:05→21:18)
[2022-02-08] MEDS: Juven (unflavored) Packet 1 PACKET PO ×2 (07:56→16:44)
--- NOTE | 2022-02-08 09:37 | CASEMGMT ---
Addendum entered by Kristin Coronado 02/08/22 12:53: [facility] can accept. SW contacted family law attorney whom confirmed [facility] is [facility]. Finalized DC. PASRR completed. Scheduled w/c transport through [facility] for 10 am. Updated pt. Plan: DC 02/10 to [facility], skilled then [facility]TP. Original Note: Social Work [facility] can accept pt. DAHLIA left voicemail with [facility] to inquire about referral as they are [facility]. Kristin Coronado, HIGHER EDUCATION ADMINISTRATOR WAITER/WAITRESS TOURIST CLASS
[2022-02-08 14:02] VITALS: BP 107/56; PULSE 68; RESP 18; TEMP 36.3; O2SAT 93
[2022-02-08 20:00] VITALS: PULSE 77; RESP 16; O2SAT 92
--- NOTE | 2022-02-08 20:14 | DS.PCM_ITS ---
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 Diagnosis Discharge Diagnosis (1) Debility: Status: Acute Code(s): R53.81 - Other malaise (2) Stasis dermatitis: Status: Chronic Code(s): I83.10 - Varicose veins of unspecified lower extremity with inflammation Qualifiers: Laterality: bilateral Qualified Code(s): I87.2 - Venous insufficiency (chronic) (peripheral) (3) Open wound of right lower leg: Status: Chronic Code(s): S81.801A - Unspecified open wound, right lower leg, initial encounter (4) Open wound of left lower leg: Status: Chronic Code(s): S81.802A - Unspecified open wound, left lower leg, initial encounter Qualifiers: Encounter type: subsequent encounter Qualified Code(s): S81.802D - Unspecified open wound, left lower leg, subsequent encounter (5) Lymphedema of both lower extremities: Status: Chronic Code(s): I89.0 - Lymphedema, not elsewhere classified (6) Cellulitis of both lower extremities: Status: Acute Code(s): L03.115 - Cellulitis of right lower limb; L03.116 - Cellulitis of left lower limb (7) Iron deficiency anemia: Status: Acute Code(s): D50.9 - Iron deficiency anemia, unspecified (8) History of deep vein thrombosis: Status: Acute Code(s): Z86.718 - Personal history of other venous thrombosis and embolism Plan 81 year old male with below past medical history hospitalized for bilateral lower extremity wounds, bilateral lower extremity cellulitis, admitted to TCU with debility, here for rehabilitation, strengthening, wound care, prior to di formerly [facility] home alone. * Debility - PT/OT. * Cognition - ST. * Pain - Tylenol 1000mg q6h prn pain (1-10). * Bowel - senna/colace 1 tablet bid, Dulcolax 10mg daily prn. * Adult immunization - Administer pneumonia vaccine, covid19 vaccine, flu vaccine. * DVT prophylaxis - hold. * MRSA cellulitis bilateral extremities - Doxycycline 100mg bid thru 01/28/2022. * Bilateral lower extremity wounds - consult wound nurse. * Nutrition - Ensure Enlive 120ml 4x/day. * Lymphedema - Furosemide 20mg daily. * Nutrition - Manohar 1 packet po bidcm. * Tinea Corporis - Nystatin powder topical tid. * Low back pain - MRSA, low threshold for MRI LS spine to evaluate for disciitis, lumbar epidural abscess, lumbar osteomyelitis. Medications at Discharge Home Medications arginine 7 gram-glutam 7 gram-CaHMB 1.5 qykl-[id number]-dy-min oral pwd pkt (Manohar (with collagen)) 1 packet PO BIDCM nutritional supplement 01/21/22 furosemide 20 mg tablet 20 mg PO DAILY water pill/swelling 01/21/22 nystatin 100,000 unit/gram topical powder (Nyamyc) 1 applic topical TID skin excoration 01/21/22 acetaminophen 500 mg tablet 1,000 mg PO Q6H PRN PRN Pain Score 1-10 #0 tabs food supplemt, lactose-reduced 0.08 gram-1.5 kcal/mL oral liquid (Ensure Plus High Protein) 120 ml PO 4X/DAY #0 mL 02/08/22 Hospital Course Operations None Procedures None Summary of Care Provided Minutes Spent on Discharge: 35 Hospital Course: 81 year old male with below past medical history hospitalized for bilateral lower extremity wounds, bilateral lower extremity cellulitis, admitted to TCU with debility, here for rehabilitation, strengthening, wound care, prior to discharge home alone. 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 Physical Exam Const alert General Appearance: cooperative HEENT normocephalic Eyes PERRL and EOMs intact bilaterally Neck supple, no JVD and no carotid bruits Resp normal respiratory effort, normal air movement and clear to auscultation bilaterally Cardio regular rate and regular rhythm GI normal to inspection, nondistended, normoactive bowel sounds, non-tender and non-distended Extremity normal capillary refill General Extremity: Negative for edema Skin no rashes or lesions noted General Skin Exam: no breakdown Psych affect normal Appearance: appropriate Weight / BMI Weight Weight: 87.288 kg Body Mass Index (BMI) 28.2 ABG / Lab / Microbiology Data Result Diagrams: 02/05/22 08:11 02/05/22 08:11 Microbiology: Microbiology 01/28/22 15:25 Nasal Secretion SARS-CoV-2 Antigen (Rapid) - Final D/C Instructions Discharge Diet: No restrictions Discharge Activity: Return to Normal Activity, May Shower and Use Walker Weight Bearing Status: Weight bearing as tolerated Call your doctor if you observe: Fever of 101 or Higher, Inability to urinate, I nability to have a bowel movement, Shortness of breath, Dizziness, Fainting spells, Swelling in the ankles, Chest pain and Uncontrolled pain Additional Instructions: Discharge to [facility] 02/10/2022, Skilled then [facility] placement. Meaningful Use Info Meaningful Use Diagnoses (Choose all that apply): None applicable Discharge Plan Admission Admit Date/Time: 01/21/22 15:43 Primary Reason for Your Visit: Debility. Attending Provider: Joey Weinberg Chi Primary Care Provider: [place], [place] Instructions Additional Instructions / Restrictions: Discharge to [facility] 02/10/2022, Skilled then usp placement. Discharge Orders/Prescriptions Prescriptions: New acetaminophen 500 mg Tablet 1,000 mg PO Q6H PRN PRN (Reason: Pain Score 1-10) Qty: 0 0RF Ensure Plus High Protein 0.08 gram-1.5 kcal/mL Liquid 120 ml PO 4X/DAY Qty: 0 0RF Continued furosemide 20 mg tablet 20 mg PO DAILY nystatin [Nyamyc] 100,000 unit/gram powder 1 applic topical TID Protocol: *Topical Application Instructions APPLICATION INSTRUCTIONS: to ABD folds and groin Manohar (with collagen) 7-7-1.5 gram powder in packet 1 packet PO BIDCM Discontinued acetaminophen [Tylenol] 325 mg Tablet 650 mg PO Q6H PRN PRN (Reason: Pain Score 1-10/Temp > 100.7 F) Qty: 0 0RF doxycycline hyclate [Vibramycin] 100 mg capsule 100 mg PO BID Rx Instructions: Take for seven days, then stop-start on 01/21/22 Ensure Enlive 0.08 gram-1.5 kcal/mL liquid 120 ml PO 4X/DAY Referrals / Follow Up: [facility],[place] [Primary Care Provider] - Disposition Disposition (needs filled in before D/C Order can be placed): Long-Term Facility
--- NOTE | 2022-02-08 20:18 | TREXTCAR_ITS ---
Diet Diet Order/Speech Therapy: 01/24/22 16:50 Diet: Regular - No Added Salt Food consistency:: Regular Liquid Consistency:: Regular/Thin Is pt able to select menu?: Yes Routine Orders/Code Status Code Status: Full Code Wound(s) left tellez: Wound Type: Stasis Ulcer calf: Wound Type: Stasis Ulcer left inner ankle: Wound Type: Stasis Ulcer Dressing Change: Adaptic left tellez#2: Wound Type: Stasis Ulcer right lateral tellez: Wound Type: Stasis Ulcer right lateral tellez #2: Wound Type: Stasis Ulcer right thigh: Wound Type: scar right lower leg: Wound Type: clsuter of stasis ulcers Dressing Change: Adaptic left anterior lower leg: Wound Type: Stasis Ulcer Dressing Change: Adaptic left lateral lower leg: Wound Type: Stasis Ulcer Dressing Change: Adaptic Therapies Weight Bearing: Weight bearing as tolerated Extremity Affected:: Bilateral Lower Physical Therapy: Eval and Treat Occupational Therapy: Eval and Treat Speech Therapy: Eval and Treat Problem/Diagnosis (1) Debility: Status: Acute Code(s): R53.81 - Other malaise (2) Stasis dermatitis: Status: Chronic Code(s): I83.10 - Varicose veins of unspecified lower extremity with inflammation Comment: RLE (3) Open wound of right lower leg: Status: Chronic Code(s): S81.801A - Unspecified open wound, right lower leg, initial encounter (4) Open wound of left lower leg: Status: Chronic Code(s): S81.802A - Unspecified open wound, left lower leg, initial encounter (5) Lymphedema of both lower extremities: Status: Chronic Code(s): I89.0 - Lymphedema, not elsewhere classified (6) Cellulitis of both lower extremities: Status: Acute Code(s): L03.115 - Cellulitis of right lower limb; L03.116 - Cellulitis of left lower limb (7) Iron deficiency anemia: Status: Acute Code(s): D50.9 - Iron deficiency anemia, unspecified (8) History of deep vein thrombosis: Status: Acute Code(s): Z86.718 - Personal history of other venous thrombosis and embolism Plan 81 year old male with below past medical history hospitalized for bilateral lower extremity wounds, bilateral lower extremity cellulitis, admitted to TCU with debility, here for rehabilitation, strengthening, wound care, prior to discharge home alone. * Debility - PT/OT. * Cognition - ST. * Pain - Tylenol 1000mg q6h prn pain (1-10). * Bowel - senna/colace 1 tablet bid, Dulcolax 10mg daily prn. * Adult immunization - Administer pneumonia vaccine, covid19 vaccine, flu vaccine. * DVT prophylaxis - hold. * MRSA cellulitis bilateral extremities - Doxycycline 100mg bid thru 01/28/2022. * Bilateral lower extremity wounds - consult wound nurse. * Nutrition - Ensure Enlive 120ml 4x/day. * Lymphedema - Furosemide 20mg daily. * Nutrition - Manohar 1 packet po bidcm. * Tinea Corporis - Nystatin powder topical tid. * Low back pain - MRSA, low threshold for MRI LS spine to evaluate for disciitis, lumbar epidural abscess, lumbar osteomyelitis. Allergies/Procedures Done in Hospital Allergies vancomycin Allergy (Verified 01/18/22 16:14) Anaphylaxis red ariel and seizure Procedures: None Type of Care/Length of Stay Estimated LOS: More Than 30 Days Type of Care Needed: Skilled Rehab Potential: Fair Prognosis: Fair Additional Orders/Day of Discharge Day of Discharge: 02/10/22 Dietary and Speech Recommendations Dietitian Recommendations/Changes: Will continue Regular, no added salt diet Will continue Manohar BID and Ensure Plus High Protein 120mL 4x/day w/medpass for additional protein/calories if consumed- will decrease ONS pending PO intake at meals, wt trends. Will allow modified diet as desired by resident given poor dentition. Discharge Plan Admission Admit Date/Time: 01/21/22 15:43 Primary Reason for Your Visit: Debility. Attending Provider: Joey Weinberg Chi Primary Care Provider: [facility],[place] Instructions Additional Instructions / Restrictions: Discharge to [facility] 02/10/2022, Skilled then roasterman placement. Discharge Orders/Prescriptions Prescriptions: New acetaminophen 500 mg Tablet 1,000 mg PO Q6H PRN PRN (Reason: Pain Score 1-10) Qty: 0 0RF Ensure Plus High Protein 0.08 gram-1.5 kcal/mL Liquid 120 ml PO 4X/DAY Qty: 0 0RF Continued furosemide 20 mg tablet 20 mg PO DAILY nystatin [Nyamyc] 100,000 unit/gram powder 1 applic topical TID Protocol: *Topical Application Instructions APPLICATION INSTRUCTIONS: to ABD folds and groin Manohar (with collagen) 7-7-1.5 gram powder in packet 1 packet PO BIDCM Discontinued acetaminophen [Tylenol] 325 mg Tablet 650 mg PO Q6H PRN PRN (Reason: Pain Score 1-10/Temp > 100.7 F) Qty: 0 0RF doxycycline hyclate [Vibramycin] 100 mg capsule 100 mg PO BID Rx Instructions: Take for seven days, then stop-start on 01/21/22 Ensure Enlive 0.08 gram-1.5 kcal/mL liquid 120 ml PO 4X/DAY Referrals / Follow [facility] [facility] [Primary Care [place]] - Disposition Disposition (needs filled in before D/C Order can be placed): Long Term Facility (1) Stasis dermatitis Qualifiers: Laterality: bilateral Qualified Code(s): I87.2 - Venous insufficiency (chronic) (peripheral) (2) Open wound of left lower leg Qualifiers: Encounter type: subsequent encounter Qualified Code(s): S81.802D - Unspecified open wound, left lower leg, subsequent encounter
[2022-02-09] MEDS: Ensure Plus High Protein 120 ML LIQUID PO ×4 (06:09→20:24)
[2022-02-09] MEDS: Furosemide 20 MG Tablet PO (06:10)
[2022-02-09] MEDS: Juven (unflavored) Packet 1 PACKET PO ×2 (08:32→17:45)
[2022-02-09 13:36] VITALS: O2SAT 96
[2022-02-09 16:00] VITALS: BP 118/67; PULSE 74; RESP 14; TEMP 36.3; O2SAT 96
[2022-02-10] MEDS: Ensure Plus High Protein 120 ML LIQUID PO (05:44)
[2022-02-10] MEDS: Furosemide 20 MG Tablet PO (05:46)
[2022-02-10 05:50] VITALS: BP 129/71; PULSE 72; RESP 16; TEMP 36.9; O2SAT 95
[2022-02-10] MEDS: Juven (unflavored) Packet 1 PACKET PO (08:52)
--- NOTE | 2022-02-10 08:55 | CASEMGMT ---
Social Work BIMS and PHQ-9 completed for MDS assessment. Kristin Coronado ,CAREER COUNSELOR [employer]
== END 2022-02-10 10:40 | disposition skilled nursing facility (03) | DRG 603 ==
PROVIDERS: Admitting Provider Family Medicine Geriatric Medicine; Visit Provider Family Medicine Geriatric Medicine
DX: L03.116 Cellulitis of left lower limb (principal); B35.4 Tinea corporis; E78.5 Hyperlipidemia, unspecified; I89.0 Lymphedema, not elsewhere classified; I83.11 Varicose veins of right lower extremity with inflammation; D50.9 Iron deficiency anemia, unspecified; I83.12 Varicose veins of left lower extremity with inflammation; B95.62 Methicillin resistant Staphylococcus aureus infection as the cause of diseases classified elsewhere; L03.115 Cellulitis of right lower limb; Z87.891 Personal history of nicotine dependence; S81.801D Unspecified open wound, right lower leg, subsequent encounter; S81.802D Unspecified open wound, left lower leg, subsequent encounter; X58.XXXD Exposure to other specified factors, subsequent encounter; Z79.899 Other long term (current) drug therapy; Z23 Encounter for immunization
CPT/HCPCS: 0002A; 36415; 72100; 80048; 85025; 87811; 90677; 91300; 92507; 92523; 97110; 97116; 97162; 97166; 97530; 97535; A4216

== ENCOUNTER → 2022-04-25 | Outpatient (REF) | payer MEDICARE, SELFPAY ==
[2022-04-25 08:28] LABS: Anion Gap 4 (5-15); BUN 32 mg/dL (7-18); BUN/Creat Ratio 34.7 RATIO (10-20); Calcium,Total 8.6 mg/dL (8.5-10.1); Chloride 106 mmol/L (98-107); Creatinine, Serum 0.92 mg/dL (0.70-1.30); EST Glomerular Filtration Rate 84 mL/min (>60); Est Glom Filt Rate - Afr Amer 101 mL/min (>60); Glucose 86 mg/dL (74-106); Potassium 4.3 mmol/L (3.5-5.1); Sodium Level 138 mmol/L (136-145)
== END ==
LOC: OLS.ACH 05:00
PROVIDERS: Visit Provider Family Medicine
DX: D50.9 Iron deficiency anemia, unspecified (principal); G30.9 Alzheimer's disease, unspecified; M62.81 Muscle weakness (generalized); Z85.46 Personal history of malignant neoplasm of prostate
CPT/HCPCS: 36415; 80048

== ENCOUNTER → 2022-05-09 | Outpatient (REF) | payer MEDICARE, SELFPAY ==
[2022-05-09 09:11] LABS: Anion Gap 4 (5-15); BUN 22 mg/dL (7-18); BUN/Creat Ratio 26.4 RATIO (10-20); Calcium,Total 8.4 mg/dL (8.5-10.1); Chloride 106 mmol/L (98-107); Creatinine, Serum 0.83 mg/dL (0.70-1.30); EST Glomerular Filtration Rate 94 mL/min (>60); Est Glom Filt Rate - Afr Amer 114 mL/min (>60); Glucose 93 mg/dL (74-106); Potassium 4.6 mmol/L (3.5-5.1); Sodium Level 136 mmol/L (136-145)
== END ==
LOC: OLS.ACH 05:00
PROVIDERS: Visit Provider Family Medicine
DX: D50.9 Iron deficiency anemia, unspecified (principal); E78.5 Hyperlipidemia, unspecified
CPT/HCPCS: 36415; 80048

== ENCOUNTER → 2022-05-18 | Outpatient (REF) | payer MEDICARE, SELFPAY ==
[2022-05-18 08:56] LABS: Hematocrit 39.2 % (40-54); Hemoglobin 13.1 g/dL (13.0-16.5); Mean Corp Hgb Conc 33.4 g/dL (32-36); Mean Corpuscular Hgb 29.5 pg (27.0-32.0); Mean Corpuscular Volume 88.3 fL (80-94); Mean Platelet Vol. 9.2 fl (6.2-12.0); Platelet Count 219 K/mm3 (150-450); RBC Distribution Width CV 13.2 % (11.6-14.6); RBC Distribution Width SD 42.7 fl (35.1-43.9); Red Blood Count 4.44 M/mm3 (4.6-6.2); White Blood Count 7.3 K/mm3 (4.4-11.0)
[2022-05-18 09:25] LABS: ALB/GLOB Ratio 0.7 RATIO (0.9-2.4); AST(SGOT) 24 U/L (15-37); Alanine Aminotransfer ALT/SGPT 29 U/L (16-61); Albumin, Serum 2.9 g/dL (3.2-5.0); Alkaline Phosphatase 100 U/L (45-117); Anion Gap 5 (5-15); BUN 20 mg/dL (7-18); BUN/Creat Ratio 24.6 RATIO (10-20); Calcium,Total 8.5 mg/dL (8.5-10.1); Chloride 107 mmol/L (98-107); Creatinine, Serum 0.81 mg/dL (0.70-1.30); EST Glomerular Filtration Rate 97 mL/min (>60); Est Glom Filt Rate - Afr Amer 117 mL/min (>60); Globulin 4.2 g/dL (2.2-4.2); Glucose 92 mg/dL (74-106); Potassium 4.3 mmol/L (3.5-5.1); Protein, Total 7.1 g/dL (6.4-8.2); Sodium Level 139 mmol/L (136-145)
== END ==
LOC: OLS.ACH 05:00
PROVIDERS: Visit Provider Family Medicine
DX: D50.9 Iron deficiency anemia, unspecified (principal); G30.9 Alzheimer's disease, unspecified
CPT/HCPCS: 36415; 80053; 85027

== ENCOUNTER → 2022-06-06 | Outpatient (REF) | payer MEDICARE, SELFPAY ==
[2022-06-06 09:12] LABS: Hematocrit 38.3 % (40-54); Hemoglobin 12.7 g/dL (13.0-16.5); Mean Corp Hgb Conc 33.2 g/dL (32-36); Mean Corpuscular Hgb 29.2 pg (27.0-32.0); Mean Platelet Vol. 8.4 fl (6.2-12.0); Platelet Count 398 K/mm3 (150-450); RBC Distribution Width CV 12.8 % (11.6-14.6); RBC Distribution Width SD 41.2 fl (35.1-43.9); Red Blood Count 4.35 M/mm3 (4.6-6.2); White Blood Count 9.3 K/mm3 (4.4-11.0)
== END ==
LOC: OLS.ACH 05:00
PROVIDERS: Visit Provider Internal Medicine
DX: G30.9 Alzheimer's disease, unspecified (principal)
CPT/HCPCS: 36415; 85027

== ENCOUNTER → 2022-08-31 | Outpatient (REF) | payer MEDICARE, SELFPAY ==
[2022-08-31 08:50] LABS: Hematocrit 41.2 % (40-54); Hemoglobin 13.5 g/dL (13.0-16.5); Mean Corp Hgb Conc 32.8 g/dL (32-36); Mean Corpuscular Hgb 29.9 pg (27.0-32.0); Mean Corpuscular Volume 91.4 fL (80-94); Mean Platelet Vol. 9.1 fl (6.2-12.0); Platelet Count 177 K/mm3 (150-450); RBC Distribution Width SD 47.4 fl (35.1-43.9); Red Blood Count 4.51 M/mm3 (4.6-6.2)
[2022-08-31 09:12] LABS: ALB/GLOB Ratio 0.7 RATIO (0.9-2.4); AST(SGOT) 23 U/L (15-37); Alanine Aminotransfer ALT/SGPT 28 U/L (16-61); Alkaline Phosphatase 111 U/L (45-117); Anion Gap 7 (5-15); BUN 20 mg/dL (7-18); BUN/Creat Ratio 23.8 RATIO (10-20); Calcium,Total 9.2 mg/dL (8.5-10.1); Chloride 103 mmol/L (98-107); Creatinine, Serum 0.84 mg/dL (0.70-1.30); EST Glomerular Filtration Rate 93 mL/min (>60); Est Glom Filt Rate - Afr Amer 113 mL/min (>60); Globulin 4.2 g/dL (2.2-4.2); Glucose 85 mg/dL (74-106); Potassium 4.3 mmol/L (3.5-5.1); Protein, Total 7.2 g/dL (6.4-8.2); Sodium Level 136 mmol/L (136-145)
== END ==
LOC: OLS.ACH 05:00
PROVIDERS: Visit Provider Internal Medicine
DX: I87.2 Venous insufficiency (chronic) (peripheral) (principal); E78.5 Hyperlipidemia, unspecified
CPT/HCPCS: 36415; 80053; 85027

== ENCOUNTER → 2023-02-27 | Outpatient (REF) | payer MEDICARE, SELFPAY ==
[2023-02-27 09:04] LABS: Hematocrit 36.6 % (40-54); Hemoglobin 11.8 g/dL (13.0-16.5); Mean Corp Hgb Conc 32.2 g/dL (32-36); Mean Corpuscular Volume 93.1 fL (80-94); Mean Platelet Vol. 8.9 fl (6.2-12.0); Platelet Count 282 K/mm3 (150-450); RBC Distribution Width CV 12.4 % (11.6-14.6); RBC Distribution Width SD 42.5 fl (35.1-43.9); Red Blood Count 3.93 M/mm3 (4.6-6.2); White Blood Count 6.7 K/mm3 (4.4-11.0)
== END ==
LOC: OLS.ACH 04:00
PROVIDERS: Referring Provider Internal Medicine; Visit Provider Internal Medicine
DX: D50.9 Iron deficiency anemia, unspecified (principal); Z86.718 Personal history of other venous thrombosis and embolism
CPT/HCPCS: 36415; 85027

== ENCOUNTER → 2023-04-05 | Outpatient (REF) | payer MEDICARE, SELFPAY ==
[2023-04-05 08:58] LABS: Hematocrit 37.8 % (40-54); Mean Corp Hgb Conc 31.7 g/dL (32-36); Mean Corpuscular Hgb 29.3 pg (27.0-32.0); Mean Corpuscular Volume 92.4 fL (80-94); Mean Platelet Vol. 9.4 fl (6.2-12.0); Platelet Count 283 K/mm3 (150-450); RBC Distribution Width CV 12.8 % (11.6-14.6); RBC Distribution Width SD 43.5 fl (35.1-43.9); Red Blood Count 4.09 M/mm3 (4.6-6.2); White Blood Count 6.6 K/mm3 (4.4-11.0)
[2023-04-05 09:16] LABS: ALB/GLOB Ratio 0.8 RATIO (0.9-2.4); AST(SGOT) 14 U/L (15-37); Alanine Aminotransfer ALT/SGPT 13 U/L (16-61); Albumin, Serum 2.9 g/dL (3.2-5.0); Alkaline Phosphatase 95 U/L (45-117); Anion Gap 3 (5-15); BUN 22 mg/dL (7-18); BUN/Creat Ratio 24.7 RATIO (10-20); Calcium,Total 8.5 mg/dL (8.5-10.1); Chloride 104 mmol/L (98-107); Creatinine, Serum 0.89 mg/dL (0.70-1.30); EST Glomerular Filtration Rate 87 mL/min (>60); Est Glom Filt Rate - Afr Amer 105 mL/min (>60); Globulin 3.8 g/dL (2.2-4.2); Glucose 95 mg/dL (74-106); Potassium 4.3 mmol/L (3.5-5.1); Protein, Total 6.7 g/dL (6.4-8.2); Sodium Level 137 mmol/L (136-145)
== END ==
LOC: OLS.ACH 05:00
PROVIDERS: Visit Provider Internal Medicine
DX: D50.9 Iron deficiency anemia, unspecified (principal); I27.20 Pulmonary hypertension, unspecified; R10.9 Unspecified abdominal pain
CPT/HCPCS: 36415; 80053; 85027

== ENCOUNTER 2023-10-01 10:55 | Emergency (ER) | payer MEDICARE, SELFPAY ==
[2023-10-01 10:56] VITALS: BP 152/74; PULSE 60; RESP 18; TEMP 35.8; O2SAT 96; BMI 15.8
--- NOTE | 2023-10-01 11:14 | VDLE_ITS ---
Reason For Study: Left leg pain RIGHT LEFT CFV is compressible, spontaneous, phasic, GSV is normal. competent and demonstrates normal CFV is compressible, spontaneous, phasic, augmentation. competent, and demonstrates normal Procedure augmentation. This is a venous duplex using B-mode, color FV is compressible, spontaneous, phasic, flow and spectral Doppler. competent and demonstrates normal Exam performed portable in ED. augmentation. A preliminary report was called and/or faxed POP V is compressible, spontaneous, phasic, to Jeremiah STEVENS. competent and demonstrates normal augmentation. T/P Trunk is compressible. PTV is compressible. LT PerV is compressible. Enlarged vascularized lymph nodes noted in left groin with the largest measuring 1.38 x 3.25 cm. VL/Venous Duplex US, Unilateral Interpretation Summary There is no evidence of left lower extremity deep vein thrombosis. Left great s aphenous vein appears patent and compressible segmentally. Left groin 2.98 x 1.24 cm lymph node Left groin 1.38 x 3.25 cm lymph node Normal flow patterns right common femoral vein Ordering Physician: Esperanza Daniels Referring Physician: [facility] Performed By: Rosibel Mcclellan RVT
--- NOTE | 2023-10-01 11:16 | EDS_ITS ---
<Statement entered by Mariel Gee MD - 10/01/23 19:18> I have personally performed a face to face assessment of the patient and have reviewed the SHAUN Note. Patient presents from [facility] secondary to concern for left leg DVT. He has a history of chronic venous skin changes to his lower extremities. He has had increased swelling and redness to his left leg. Bruising is noted around his left knee and daughter does report a fall a week ago. Patient is currently on Eliquis. Patient sitting upright in bed no acute distress. Nontoxic-appearing. Head and neck examination unremarkable. Heart is regular rate and rhythm. Lung sounds are grossly clear. Left lower extremity examination reveals chronic venous skin changes to the lower aspect of the left leg. He does have some slight weeping with erythema and warmth. He has bruising noted around the left knee. Mild edema noted. Venous ultrasound of the left lower extremity reveals no evidence of DVT. Left knee and left tib-fib x-rays per my interpretation reveal arthritic changes with no evidence of fracture. Test results discussed with family. He will be started on Keflex for cellulitis. Return instructions given. HPI History of Present Illness Chief Complaint: Lower Extremity Injury Narrative Narrative: Patient presenting today from [facility] with concerns for DVT to the left lower extremity. He has had a DVT in the past and is on Eliquis. Daughter is in the room and reports that he has had swelling to his LLE over the past week. longterm noticed that it has been warm and erythemic as well. Daughter is concerned for cellulitis, he is not on any antibiotics. He has had no fevers or chills. He does have a history of dementia and is a poor historian. [facility] Medical History DVT of leg (deep venous thrombosis) Former smoker HLD (hyperlipidemia) Iron deficiency anemia Lymphedema Migraines Personal history of prostate cancer Venous insufficiency (chronic) (peripheral) Venous stasis dermatitis Home Medications arginine 7 gram-glutam 7 gram-CaHMB 1.5 [id number]-hz-min oral pwd pkt (Manohar (with collagen)) 1 packet PO BIDCM nutritional supplement 01/21/22 [History Last Taken Unknown] furosemide 20 mg tablet 20 mg PO DAILY water pill/swelling 01/21/22 [History Last Taken Unknown] nystatin 100,000 unit/gram topical powder (Nyamyc) 1 applic topical TID skin excoration 01/21/22 [History Last Taken Unknown] acetaminophen 500 mg tablet 1,000 mg (2 x 500 mg) PO Q6H PRN PRN Pain Score 1-10 #0 tabs 02/08/22 [Rx Last Taken Unknown] food supplemt, lactose-reduced 0.08 gram-1.5 kcal/mL oral liquid (Ensure Plus High Protein) 120 ml PO 4X/DAY #0 mL 02/08/22 [Rx Last Taken Unknown] cephalexin 500 mg capsule 500 mg PO Q6 7 days #27 CAPSULES 10/01/23 [Rx Last Taken Unknown] Allergy/AdvReac Type Severity Reaction Status Date / Time vancomycin Allergy Anaphylaxis Verified 10/01/23 10:56 Social History household members: none Smoking Status: Never smoker alcohol intake: never substance use type: does not use ROS ROS ED Constitutional Constitutional ED: Denies chills or fever(s) Cardiovascular Cardiovascular: Denies chest pain or palpitations Respiratory/Chest Respiratory/Chest: Denies cough or dyspnea Gastrointestinal Gastrointestinal: Denies abdominal pain, nausea or vomiting Musculoskeletal Musculoskeletal: Reports myalgias Integumentary Reports other Details: Small wound to the ventral aspect of the left lower extremity Neurologic Neurologic: Denies weakness EXAM Physical Exam Const Vital Signs: 10/01/23 10:56 Temperature 96.5 F L Temperature Source Temporal Pulse Rate 60 Respiratory Rate 18 Blood Pressure 152/74 H Blood Pressure Mean 100 Pulse Ox 96 Oxygen Delivery Method Room Air Positive well nourished, well developed and no apparent distress General Appearance ED: well developed HEENT Reports normocephalic and head/scalp atraumatic Mouth ED: Yes moist mucous membranes normal Eyes PERRL and EOMs intact bilaterally Neck full ROM and supple Chest Wall inspection of chest normal Resp normal respiratory effort and clear to auscultation bilaterally Cardio regular rate and regular rhythm GI soft to palpation, non-tender, non-distended and no masses Back/Spine normal ROM and normal to inspection Extremity normal to inspection and full ROM Extremity Narrative: Edema to the left lower extremity with slight warmth and erythema to the ventral aspect. Small dime sized wound to the ventral aspect of the LLE without any purulent discharge. Chronic venous stasis changes to the lower extremities bilaterally. Neuro oriented x3, CN's II-XII intact bilaterally, moves all extremities, no focal motor deficits and no sensory deficits noted Sensorium / Orientation: awake and alert Psych mental status grossly normal and thought process normal MDM MDM MDM Narrative Medical decision making narrative: [facility]. He is on Eliquis, however, study will be performed to rule out failure of outpatient therapy. His examination is more consistent with cellulitis, his vitals are unremarkable and he has not had any fevers or chills or systemic symptoms to necessitate need for labs. Venous duplex ultrasound negative for DVT. Daughter reports that he did have a fall about a week ago where he injured his left lower extremity, x-ray of the left knee and tibia/fibula were obtained and are negative for acute findings. Patient will be treated for cellulitis with Keflex with first dose here. Return instructions were given and patient discharged home in stable condition. Discharge Plan Triage Chief Complaint: Lower Extremity Injury ED Midlevel Provider: Esperanza Daniels ED Provider: Mariel Gee Dx/Rx/DC Orders Clinical Impression: Leg edema, left, Cellulitis Instructions: ED Cellulitis, ED Peripheral Edema, Unilateral Prescriptions: New cephalexin 500 mg capsule 500 mg PO Q6 7 Days Qty: 27 0RF No Action furosemide 20 mg tablet 20 mg PO DAILY nystatin [Nyamyc] 100,000 unit/gram powder 1 applic topical TID Protocol: *Topical Application Instructions APPLICATION INSTRUCTIONS: to ABD folds and groin Manohar (with collagen) 7-7-1.5 gram powder in packet 1 packet PO BIDCM acetaminophen 500 mg Tablet 1,000 mg PO Q6H PRN PRN (Reason: Pain Score 1-10) Qty: 0 0RF Ensure Plus High Protein 0.08 gram-1.5 kcal/mL Liquid 120 ml PO 4X/DAY Qty: 0 0RF [facility] [facility]Primary [place]] - Activity Restrictions/Additional Instructions: Ultrasound of the left lower extremity negative for DVT, no fracture to the left distal femur, knee, or tibia/fibula. We will treat you for cellulitis with Keflex 4 times daily for the next 7 days. Follow-up with PCP and return for any worsening of symptoms. Disposition Disposition: Home, Self Care
--- NOTE | 2023-10-01 12:14 | RAD_ITS ---
HISTORY: injury. TECHNIQUE: XR Knee 3 Views. COMPARISON: None. FINDINGS: BONES : No acute fracture identified. Generalized osteopenia. JOINTS: No dislocation. Degenerative change and advanced medial compartment joint space narrowing. SOFT TISSUES: Diffuse soft tissue edema with peripheral vascular disease noted. RAD/Knee 3 Views IMPRESSION: No acute fracture or dislocation identified in the left knee. Electronically Signed: Rehana Mendez MD at 13:39 EDT ,
--- NOTE | 2023-10-01 12:14 | RAD_ITS ---
HISTORY: injury. TECHNIQUE: XR Tibia/Fibula 2 Views. COMPARISON: 01/18/2022. FINDINGS: BONES : No acute fracture identified. Generalized osteopenia. JOINTS: No dislocation. Mild degenerative change. SOFT TISSUES: Diffuse soft tissue swelling. Peripheral vascular disease noted. RAD/Tibia & Fibula 2 Views IMPRESSION: Soft tissue swelling of the left leg without acute osseous abnormality identified. Electronically Signed: Rehana Mendez MD at 13:37 EDT ,
[2023-10-01] MEDS: Cephalexin 250 MG Capsule 500 MG PO (13:33)
[2023-10-01 13:35] VITALS: BP 131/72; PULSE 72; RESP 18; TEMP 36.6; O2SAT 61
--- NOTE | 2023-10-01 13:52 | ED.RN ---
Physicians called. ETA 30-40 min.
== END 2023-10-01 14:33 | disposition home or self-care (01) ==
PROVIDERS: Emergency Provider Emergency Medicine; Visit Provider Emergency Medicine
DX: L03.116 Cellulitis of left lower limb (principal); R60.0 Localized edema; Z79.01 Long term (current) use of anticoagulants; Z86.718 Personal history of other venous thrombosis and embolism; I87.2 Venous insufficiency (chronic) (peripheral); E78.5 Hyperlipidemia, unspecified
CPT/HCPCS: 73562; 73590; 93971; 99282

== ENCOUNTER → 2023-10-05 05:00 | Outpatient (REF) | payer MEDICARE, SELFPAY ==
[2023-10-05 08:34] LABS: Creatinine, Serum 0.92 mg/dL (0.70-1.30); EST Glomerular Filtration Rate 83 mL/min (>60); Est Glom Filt Rate - Afr Amer 101 mL/min (>60)
== END ==
LOC: OLS.ACH 05:00
PROVIDERS: Visit Provider Internal Medicine
DX: R59.0 Localized enlarged lymph nodes (principal)
CPT/HCPCS: 36415; 82565

== ENCOUNTER → 2023-10-30 | Outpatient (CLI) | payer MEDICARE, SELFPAY ==
--- NOTE | 2023-10-30 09:25 | VDLE_ITS ---
Reason For Study: Bilateral leg swelling RIGHT LEFT CFV is compressible, spontaneous, phasic, CFV is compressible, phasic, and INCOMPETENT competent and demonstrates normal for greater than 1.0 second. augmentation. FV is compressible, phasic, and INCOMPETENT FV is compressible, spontaneous, phasic, for greater than 1.0 second. competent and demonstrates normal POP V is compressible, spontaneous, phasic, augmentation. competent and demonstrates normal POP V is compressible, spontaneous, phasic, augmentation. competent and demonstrates normal T/P Trunk is compressible. augmentation. PTV is compressible. T/P Trunk is compressible. LT PerV is compressible. PTV is compressible. SFJ is INCOMPETENT and measures 1.05 x 1.07 RT PerV is compressible. cm. SFJ is INCOMPETENT and measures 0.65 x 0.72 GSV proximal thigh measures 0.63 x 0.64 cm. cm. GSV at knee measures 0.42 x 0.44 cm. ASV from junction is INCOMPETENT for greater GSV INCOMPETENT throughout for greater than than 0.5 seconds and measures 0.41 x 0.42 cm. 0.5 seconds. GSV is partially comrpessible with bright GSV at prox thigh is partially comrpessible intraluminal echeos in sections throughout with bright intraluminal echoes. vessel. GSV previous ablation. ASV proximal calf is INCOMPETENT for greater SSV previous ablation. than 0.5 seconds and measures 0.37 x 0.37 cm. Procedure SSV proximal calf is competent and measures This is a venous duplex using B-mode, color 0.36 x 0.37 cm. flow and spectral Doppler. Exam performed in department. Bilateral FV mid-distal visualized with color only, pt unable to tolerate compression. Patient was scanned in reverse Trendelenburg position during reflux assessment. VL/Venous Duplex US - [place] Extrem Interpretation Summary Deep veins of the bilateral lower extremities are patent and compressible segme ntally. There is no evidence of bilateral lower extremity deep vein thrombosis. The left great saph enous vein appears patent and compressible segmentally. 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 Positive for reflux in the right saphenofemoral junction, accessory saphenous v ein. Positive for reflux in the left common femoral vein, femoral vein, saphenofemor al junction, great saphenous vein throughout, accessory saphenous vein. Ordering Physician: Juli Martinez Referring Physician: Jamie Giang Performed By: Rosible Mcclellan RVT
== END | disposition home or self-care (01) ==
LOC: CVS 09:25
PROVIDERS: PCP Internal Medicine; Referring Provider Physician Assistant; Visit Provider Physician Assistant
DX: L97.212 Non-pressure chronic ulcer of right calf with fat layer exposed (principal); L97.222 Non-pressure chronic ulcer of left calf with fat layer exposed; I82.501 Chronic embolism and thrombosis of unspecified deep veins of right lower extremity; S81.802D Unspecified open wound, left lower leg, subsequent encounter; I82.811 Embolism and thrombosis of superficial veins of right lower extremity
CPT/HCPCS: 93970

== ENCOUNTER → 2023-11-07 05:00 | Outpatient (REF) | payer MEDICARE, SELFPAY ==
[2023-11-07 09:52] LABS: Hematocrit 39.7 % (40-54); Mean Corp Hgb Conc 32.7 g/dL (32-36); Mean Corpuscular Hgb 29.8 pg (27.0-32.0); Mean Corpuscular Volume 91.1 fL (80-94); Mean Platelet Vol. 9.3 fl (6.2-12.0); Platelet Count 300 K/mm3 (150-450); RBC Distribution Width CV 13.3 % (11.6-14.6); Red Blood Count 4.36 M/mm3 (4.6-6.2); White Blood Count 6.7 K/mm3 (4.4-11.0)
[2023-11-07 10:01] LABS: Anion Gap 4 (5-15); BUN 16 mg/dL (7-18); BUN/Creat Ratio 15.2 RATIO (10-20); Calcium,Total 8.9 mg/dL (8.5-10.1); Chloride 105 mmol/L (98-107); Creatinine, Serum 1.05 mg/dL (0.70-1.30); EST Glomerular Filtration Rate 72 mL/min (>60); Est Glom Filt Rate - Afr Amer 87 mL/min (>60); Glucose 92 mg/dL (74-106); Potassium 4.2 mmol/L (3.5-5.1); Sodium Level 136 mmol/L (136-145)
== END ==
LOC: OLS.ACH 05:00
PROVIDERS: PCP Internal Medicine; Visit Provider Internal Medicine
DX: I27.20 Pulmonary hypertension, unspecified (principal); E78.5 Hyperlipidemia, unspecified
CPT/HCPCS: 36415; 80048; 85027

== ENCOUNTER → 2024-01-18 05:00 | Outpatient (REF) | payer MEDICARE, SELFPAY ==
[2024-01-18 08:00] LABS: Hematocrit 34.7 % (40-54); Hemoglobin 11.3 g/dL (13.0-16.5); Mean Corp Hgb Conc 32.6 g/dL (32-36); Mean Corpuscular Hgb 28.8 pg (27.0-32.0); Mean Corpuscular Volume 88.5 fL (80-94); Mean Platelet Vol. 9.3 fl (6.2-12.0); Platelet Count 300 K/mm3 (150-450); RBC Distribution Width CV 13.2 % (11.6-14.6); RBC Distribution Width SD 43.5 fl (35.1-43.9); Red Blood Count 3.92 M/mm3 (4.6-6.2); White Blood Count 10.8 K/mm3 (4.4-11.0)
[2024-01-18 08:18] LABS: ALB/GLOB Ratio 0.5 RATIO (0.9-2.4); AST(SGOT) 30 U/L (15-37); Alanine Aminotransfer ALT/SGPT 32 U/L (16-61); Albumin, Serum 2.2 g/dL (3.2-5.0); Alkaline Phosphatase 94 U/L (45-117); Anion Gap 6 (5-15); BUN 19 mg/dL (7-18); BUN/Creat Ratio 24.1 RATIO (10-20); Calcium,Total 8.4 mg/dL (8.5-10.1); Chloride 99 mmol/L (98-107); Creatinine, Serum 0.79 mg/dL (0.70-1.30); EST Glomerular Filtration Rate 100 mL/min (>60); Est Glom Filt Rate - Afr Amer 121 mL/min (>60); Globulin 4.4 g/dL (2.2-4.2); Glucose 98 mg/dL (74-106); Potassium 4.1 mmol/L (3.5-5.1); Protein, Total 6.6 g/dL (6.4-8.2); Sodium Level 132 mmol/L (136-145)
== END ==
LOC: OLS.ACH 05:00
PROVIDERS: PCP Internal Medicine; Visit Provider Internal Medicine
DX: R09.89 Other specified symptoms and signs involving the circulatory and respiratory systems (principal)
CPT/HCPCS: 36415; 80053; 85027

== ENCOUNTER → 2024-02-07 05:00 | Outpatient (REF) | payer MEDICARE, SELFPAY ==
[2024-02-07 08:47] LABS: Hematocrit 36.3 % (40-54); Hemoglobin 11.9 g/dL (13.0-16.5); Mean Corp Hgb Conc 32.8 g/dL (32-36); Mean Corpuscular Hgb 29.3 pg (27.0-32.0); Mean Corpuscular Volume 89.4 fL (80-94); Mean Platelet Vol. 8.9 fl (6.2-12.0); Platelet Count 307 K/mm3 (150-450); RBC Distribution Width CV 13.5 % (11.6-14.6); RBC Distribution Width SD 44.5 fl (35.1-43.9); Red Blood Count 4.06 M/mm3 (4.6-6.2); White Blood Count 13.2 K/mm3 (4.4-11.0)
[2024-02-07 08:59] LABS: ALB/GLOB Ratio 0.5 RATIO (0.9-2.4); AST(SGOT) 21 U/L (15-37); Alanine Aminotransfer ALT/SGPT 22 U/L (16-61); Albumin, Serum 2.6 g/dL (3.2-5.0); Alkaline Phosphatase 102 U/L (45-117); Anion Gap 6 (5-15); BUN 19 mg/dL (7-18); BUN/Creat Ratio 21.5 RATIO (10-20); Calcium,Total 9.2 mg/dL (8.5-10.1); Chloride 97 mmol/L (98-107); Creatinine, Serum 0.88 mg/dL (0.70-1.30); EST Glomerular Filtration Rate 88 mL/min (>60); Est Glom Filt Rate - Afr Amer 106 mL/min (>60); Glucose 105 mg/dL (74-106); Potassium 4.1 mmol/L (3.5-5.1); Protein, Total 7.6 g/dL (6.4-8.2); Sodium Level 128 mmol/L (136-145)
== END ==
LOC: OLS.ACH 05:00
PROVIDERS: PCP Internal Medicine; Visit Provider Internal Medicine
DX: J96.01 Acute respiratory failure with hypoxia (principal)
CPT/HCPCS: 36415; 80053; 85027

== ENCOUNTER → 2024-02-09 05:00 | Outpatient (REF) | payer MEDICARE, SELFPAY ==
[2024-02-09 09:05] LABS: Anion Gap 8 (5-15); BUN 22 mg/dL (7-18); BUN/Creat Ratio 28.9 RATIO (10-20); Calcium,Total 9.1 mg/dL (8.5-10.1); Chloride 100 mmol/L (98-107); Creatinine, Serum 0.76 mg/dL (0.70-1.30); EST Glomerular Filtration Rate 104 mL/min (>60); Est Glom Filt Rate - Afr Amer 126 mL/min (>60); Glucose 94 mg/dL (74-106); Potassium 4.1 mmol/L (3.5-5.1); Sodium Level 133 mmol/L (136-145)
== END ==
LOC: OLS.ACH 05:00
PROVIDERS: PCP Internal Medicine; Visit Provider Internal Medicine
DX: E87.1 Hypo-osmolality and hyponatremia (principal); R45.1 Restlessness and agitation
CPT/HCPCS: 36415; 80048

== ENCOUNTER → 2024-10-01 | Outpatient (REF) | payer MEDICARE, SELFPAY ==
[2024-10-01 08:57] LABS: Hemoglobin 12.9 g/dL (13.0-16.5); Mean Corp Hgb Conc 33.1 g/dL (32-36); Mean Corpuscular Volume 87.6 fL (80-94); Mean Platelet Vol. 9.6 fl (6.2-12.0); Platelet Count 281 K/mm3 (150-450); RBC Distribution Width CV 13.8 % (11.6-14.6); RBC Distribution Width SD 44.6 fl (35.1-43.9); Red Blood Count 4.45 M/mm3 (4.6-6.2); White Blood Count 9.6 K/mm3 (4.4-11.0)
[2024-10-01 09:16] LABS: Anion Gap 10 (5-15); BUN 18 mg/dL (4-19); BUN/Creat Ratio 19.6 RATIO (10-20); Calcium,Total 8.8 mg/dL (7.6-11.0); Chloride 102 mmol/L (98-108); Creatinine, Serum 0.91 mg/dL (0.70-1.20); EST Glomerular Filtration Rate 84 (>60); Glucose 89 mg/dL (70-99); Potassium 4.5 mmol/L (3.3-5.1); Sodium Level 134 mmol/L (133-145)
== END ==
LOC: OLS.ACH 05:00
PROVIDERS: PCP Internal Medicine; Visit Provider Internal Medicine
DX: I89.0 Lymphedema, not elsewhere classified (principal); D50.9 Iron deficiency anemia, unspecified; E78.5 Hyperlipidemia, unspecified
CPT/HCPCS: 36415; 80048; 85027

== ENCOUNTER → 2025-03-18 | Outpatient (REF) | payer MEDICARE, MEDICAID, SELFPAY ==
--- OUTSIDE RECORDS SUMMARY | 2025-03-18 04:01 | XMS RPT_ITS | CCD ---
Author Organization [facility] Care Team Providers Care Manager Financial Planning Name Role Phone [place] Primary Care Provider Dr. Arvind Cueto Emergency Provider Dr. Kandice Keenan Admit Provider [phone] Kandice Keenan Other Provider [phone] Samuel Nunez Attending Provider [phone] Dr. Samuel Nunez Other Provider YELITZALLA, TORO F. Primary Care Unavailable PROVIDER, UNKNOWN Referring Unavailable Jose Lester Attending Unavailable KIRTI PETERSON Attending Unavailable KIRTI PETERSON Admitting Unavailable Yelitzalla DO, Toro F Primary Care Provider [phone] Petrilla DO, Toro F Unavailable [phone] Petrilla DO, Toro F Primary Care Provider [phone] Petrilla DO, Toro F Unavailable [phone] Alvaro Mcmillan MD Unavailable ALVARO MCMILLAN Attending Unavailable PETRILLA, TORO Primary Care Unavailable MCMILLANALVARO Attending Unavailable PETRILLA, TORO Primary Care Unavailable DEPSUNO, ROBINA Referring Unavailable PETRILLA, TORO Primary Care Unavailable DEPSUNO, ROBINA Attending Unavailable MCMILLANALVARO Attending Unavailable MCMILLANJENNIFERALVARO Referring Unavailable PETRILLA, TORO Primary Care Unavailable Deperro OLS, Robina Attending Unavailable Deperro Sr., Robina Primary Care Unavailable Deperro OLS, Robina Attending Unavailable Deperro Sr., Robina Primary Care Unavailable Deperro OLS, Robina Attending Unavailable Deperro Sr., Robina Primary Care Unavailable Deperro Sr., Robina Referring Unavailable Juli Martinez Attending Unavailable Deperro Sr., Robina Primary Care Unavailable Juli Martinez Attending Unavailable Deperro Sr., Robina Primary Care Unavailable Deperro Sr., Robina Referring Unavailable Deperro Sr., Robina Primary Care Unavailable Deperro OLS, Robina Attending Unavailable Allergies Allergy Classification Reported Allergen(s) Allergy Type Date of Onset Reaction(s) Facility (15 sources) Vancomycin Drug Allergy 10-27-2021 Anaphylaxis [facility] (1 source) Vancomycin Drug Allergy 12-20-2023 [facility] Repository Medications Current Medications Medication Drug Class(es) Dates Sig (Normalized) Sig (Original) acetaminophen 500 mg oral tablet (17 sources) Start: 02-08-2022 take 1000 mg by mouth every six hours as needed Acetaminophen Active 1000 MG PO EVERY 6 HOURS NEEDED 0 February 08, 2022 12:00am Start: 01-21-2022 End: 02-08-2022 take 2 tablets by mouth every six hours as needed Acetaminophen (Tylenol) 325 mg Tablet Discontinued 650 MG PO EVERY 6 HOURS NEEDED 0 January 21, 2022 12:00am February 08, 2022 8:16pm apixaban 5 mg oral tablet (5 sources) Factor Xa Inhibitor take 1 tablet by mouth twice daily apixaban (Eliquis) 5 MG tablet Take 5 mg by mouth 2 times daily. 0 Active Dyfst-Yrza-Fgrrn-Co llag-Mv-Min (Manohar (With Collagen)) 7-7-1.5 gram powder in packet (8 sources) Start: 01-21-2022 Gjgbh-Fhsx-Zvugl-Co llag-Mv-Min (Manohar (With Collagen)) 7-7-1.5 gram powder in packet Active 1 PACKET PO TWICE DAILY WITH MEALS January 21, 2022 2:50pm Start: 01-21-2022 Ldkdz-Gbjl-Hrc om-Gsrtgo-Zp-Min (Manohar (With Collagen)) 7-7-1.5 gram powder in packet Active 1 PACKET PO TWICE DAILY WITH MEALS January 21, 2022 3:50pm cephalexin 500 mg oral capsule (1 source) Cephalosporin Antibacterial Start: 10-01-2023 take 500 mg by mouth every six hours Cephalexin Active 500 MG PO EVERY 6 HOURS 27 October 01, 2023 12:00am citalopram 10 mg oral tablet (16 sources) Serotonin Reuptake Inhibitor take 2 tablets by mouth once daily citalopram (CeleXA) 10 MG tablet Indications: Behavioral Disorders associated with Dementia Take 20 mg by mouth daily. 0 Active take 5 mg by mouth o nce daily in the evening citalopram (CeleXA) 10 MG tablet Indications: Behavioral Disorders associated with Dementia Take 5 mg by mouth every evening. 0 Active citalopram (Donita XA) 10 MG tablet Indications: Behavioral Disorders associated with Dementia Take by mouth daily. 0 Active donepezil hydrochloride 5 mg oral tablet (8 sources) take 2 tablets by mo uth once daily donepezil (Aricept) 5 MG tablet Indications: Alzheimer's Disease Take 10 mg by mouth Nightly. 0 Active take 1 tablet by mouth once bailey y donepezil (Aricept) 5 MG tablet Indications: Alzheimer's Disease Take 5 mg by mouth Nightly. 0 Active ferrous sulfate 325 mg oral tablet (1 source) Start: 07-27-2016 take 1 tablet by mouth once daily Ferrous Sulfate (Iron (Ferrous Sulfate)) 325 MG tablet Active 325 MG PO DAILY July 27, 2016 7:46pm Food Supplemt, Lactose-Reduced (Ensure Plus High Protein) 0.08 gram-1.5 kcal/mL Liquid (8 sources) Start: 02-08-2022 Food Supplemt, Lactose-Reduced (Ensure Plus High Protein) 0.08 gram-1.5 kcal/mL Liquid Active 120 ML PO 4 TIMES DAILY 0 February 07, 2022 11:00pm Start: 02-08-2022 Food Supplemt, Lactose-Reduced (Ensure Plus High Protein) 0.08 gram-1.5 kcal/mL Liquid Active 120 ML PO 4 TIMES DAILY 0 February 08, 2022 12:00am furosemide 20 mg oral tablet (18 sources) Loop Diuretic Start: 01-21-2022 End: 01-21-2022 take 20 mg by mouth once daily Furosemide Active 20 MG PO DAILY January 21, 2022 3:50pm Start: 10-27-2021 take 1 tablet by mary once daily Furosemide (Lasix) 20 mg tablet Active 20 MG PO DAILY October 27, 2021 5:49pm nystatin 100 unt/mg topical powder (17 sources) Polyene Antifungal Start: 01-21-2022 End: 01-21-2022 Nystatin (Nyamy) 100,000 unit/gram powder Active 1 APPLIC TOPICAL THREE TIMES A DAY January 21, 2022 3:50pm OLANZapine 2.5 mg oral tablet (6 sources) Atypical Antipsychotic Start: 03-29-2022 take 1 tablet by mouth once daily OLANZapine (ZyPREXA) 2.5 MG tablet Indications: Behavioral Disorders associated with Dementia Take 1 tablet (2.5 mg) by mouth Nightly. 30 tablet 0 03/29/2022 Active spironolactone 50 mg oral tablet (5 sources) Aldosterone Antagonist take 1 tablet by mouth twice daily spironolactone (Aldactone) 50 MG tablet Take 50 mg by mouth 2 times daily. 0 Active Completed/Discontinued Medications Medication Drug Class(es) Dates Sig (Normalized) Sig (Original) Xztor-Ruoo-Vywzq-Co llag-Mv-Min (Manohar (With Collagen)) 7-7-1.5 gram Powder In Packet (9 sources) Start: 01-21-2022 End: 01-21-2022 Bhuom-Pwel-Hqona-Col lag-Mv-Min (Manohar (With Collagen)) 7-7-1.5 gram Powder In Packet Discontinued 1 PACKET PO TWICE DAILY WITH MEALS 0 January 20, 2022 11:00pm January 21, 2022 2:50pm Start: 01-21-2022 End: 01-21-2022 Uzywy-Biwm-Hjgbk-Collag-Mv-M in (Manohar (With Collagen)) 7-7-1.5 gram Powder In Packet Discontinued 1 PACKET PO TWICE DAILY WITH MEALS 0 January 21, 2022 12:00am January 21, 2022 3:50pm Start: 01-21-2022 Dmalu-Jgef-Zrj rv-Ipbdzh-Kb-Min (Manohar (With Collagen)) 7-7-1.5 gram Powder In Packet Active 1 PACKET PO TWICE DAILY WITH MEALS 0 January 21, 2022 12:00am aspirin 81 mg chewable tablet (20 sources) Platelet Aggregation Inhibitor, Nonsteroidal Anti-inflammatory Drug Start: 06-18-2014 End: 12-08-2020 take 81 mg by mouth once daily Aspirin Discontinued 81 MG PO DAILY@0800 June 18, 2014 1:00am December 08, 2020 9:12pm Start: 06-12-2014 End: 06-14-2014 take 81 mg by mouth once daily Aspirin Discontinued 81 MG PO DAILY@0800 June 12, 2014 1:00am June 14, 2014 11:38am take 1 tablet by mary th once daily aspirin 81 MG EC tablet Take 81 mg by mouth daily. 0 Active cefadroxil 500 mg oral capsule (20 sources) Cephalosporin Antibacterial Start: 07-30-2016 End: 04-25-2017 take 500 mg by mouth twice daily Cefadroxil Discontinued 500 MG PO TWICE A DAY July 30, 2016 1:00am April 25, 2017 4:22pm Start: 03-17-2015 End: 10-13-2015 take 1000 mg by mouth every twelve hours Cefadroxil Discontinued 1000 MG PO TWICE A DAY March 17, 2015 12:00am October 13, 2015 2:52pm take every 12 hrs w/food ciprofloxacin 500 mg oral tablet (20 sources) Quinolone Antimicrobial Start: 11-09-2020 End: 12-08-2020 take 1 tablet by mouth twice daily Ciprofloxacin Hcl (Cipro) 500 mg tablet Discontinued 500 MG PO TWICE A DAY November 09, 2020 3:51pm December 08, 2020 9:12pm clindamycin 300 mg oral capsule (10 sources) Lincosamide Antibacterial Start: 02-27-2019 End: 11-09-2020 take 300 mg by mouth every six hours Clindamycin Hcl Discontinued 300 MG PO EVERY 6 HOURS February 27, 2019 12:00am November 09, 2020 11:37am doxycycline hyclate 100 mg oral capsule (17 sources) Tetracycline-class Drug Start: 01-21-2022 End: 02-08-2022 Doxycycline Hyclate (Vibramycin) 100 mg capsule Discontinued 100 MG PO TWICE A DAY January 21, 2022 3:50pm February 08, 2022 8:16pm Take for seven days, then stop-start on 01/21/22 0.4 ml enoxaparin sodium 100 mg/ml prefilled syringe (20 sources) Low Molecular Weight Heparin Start: 11-09-2020 End: 12-08-2020 Enoxaparin (Lovenox) 40 mg/0.4 mL syringe Discontinued 40 MG SC DAILY November 09, 2020 3:51pm December 08, 2020 9:12pm Continue Lovenox and Coumadin until INR is 1.8, then discontinue Lovenox. Food Supplemt, Lactose-Reduced (Ensure Enlive) 0.08 gram-1.5 kcal/mL Liquid (9 sources) Start: 01-21-2022 End: 01-21-2022 take 1 mL by mouth four times daily Food Supplemt, Lactose-Reduced (Ensure Enlive) 0.08 gram-1.5 kcal/mL Liquid Discontinued 120 ML PO 4 TIMES DAILY 0 January 20, 2022 11:00pm January 21, 2022 2:50pm Start: 01-21-2022 End: 01-21-2022 take 1 mL by mouth four times daily Food Supplemt, Lactose-Reduced (Ensure Enlive) 0.08 gram-1.5 kcal/mL Liquid Discontinued 120 ML PO 4 TIMES DAILY 0 January 21, 2022 12:00am January 21, 2022 3:50pm Start: 01-21-2022 take 1 mL by mouth f our times daily Food Supplemt, Lactose-Reduced (Ensure Enlive) 0.08 gram-1.5 kcal/mL Liquid Active 120 ML PO 4 TIMES DAILY 0 January 21, 2022 12:00am Food Supplemt, Lactose-Reduced (Ensure Enlive) 0.08 gram-1.5 kcal/mL liquid (8 sources) Start: 01-21-2022 End: 02-08-2022 take 1 mL by mouth four times daily Food Supplemt, Lactose-Reduced (Ensure Enlive) 0.08 gram-1.5 kcal/mL liquid Discontinued 120 ML PO 4 TIMES DAILY January 21, 2022 2:50pm February 08, 2022 7:16pm Start: 01-21-2022 End: 02-08-2022 take 1 mL by mouth four times daily Food Supplemt, Lactose-Reduced (Ensure Enlive) 0.08 gram-1.5 kcal/mL liquid Discontinued 120 ML PO 4 TIMES DAILY January 21, 2022 3:50pm February 08, 2022 8:16pm iopamidol (Isovue-370) 76 % injection 75 mL (2 sources) Start: 10-12-2023 End: 10-12-2023 iopamidol (Isovue-370) 76 % injection 75 mL warfarin sodium 5 mg oral tablet (20 sources) Vitamin K Antagonist Start: 11-09-2020 End: 12-08-2020 take 5 mg by mouth once daily Warfarin Discontinued 5 MG PO DAILY December 08, 2020 9:13pm December 08, 2020 9:14pm Lovenox to Coumadin bridge: discontinue Lovenox when INR is 1.8. Start: 07-27-2016 End: 11-09-2020 take 3 mg by mouth every other day Warfarin Discontinued 3 MG PO EVERY OTHER DAY February 27, 2019 12:33am November 09, 2020 11:42am mon and monday Start: 06-12-2014 End: 11-09-2020 take 3 tablets by mouth every other day Warfarin (Jantoven) 2 MG tablet Discontinued 6 MG PO EVERY OTHER DAY June 12, 2014 1:00am November 09, 2020 11:42am Problems Active Problems Problem Classification Problem Date Documented Da te Episodic/Chronic Abdominal hernia (4 sources) Inguinal hernia; Translations: [Unilateral inguinal hernia, without obstruction or gangrene, not specified as recurrent] Onset: 10-30-2023 10-30-2023 Episodic Cancer of prostate (10 sources) History of malignant neoplasm of prostate; Translations: [Personal history of malignant neoplasm of prostate] 10-27-2021 Episodic Chronic ulcer of skin (20 sources) Chronic ulcer of skin of calf; Translations: [Non-pressure chronic ulcer of left calf limited to breakdown of skin] Onset: 03-15-2024 02-27-2019 Chronic Deficiency and other anemia (10 sources) Anemia; Translations: [Anemia, unspecified] 09-12-2017 Episodic Deficiency and other anemia (18 sources) Iron deficiency anemia; Translations: [Iron deficiency anemia, unspecified] 02-18-2022 Episodic Deficiency and other anemia (4 sources) Iron deficiency anemia, unspecified; Translations: [Iron deficiency anemia, unspecified] Onset: 11-12-2024 Episodic Disorders of lipid metabolism (11 sources) Hyperlipidemia; Translations: [Hyperlipidemia, unspecified] Onset: 11-12-2024 10-27-2021 Chronic E Codes: Adverse effects of medical drugs (10 sources) Adverse reaction to drug; Translations: [Adverse effect of unspecified drugs, medicaments and biological substances, initial encounter] 11-05-2020 Episodic Immunizations and screening for infectious disease (10 sources) Vaccination given; Translations: [Encounter for immunization] 10-27-2021 Episodic Lymphadenitis (5 sources) Inguinal lymphadenopathy; Translations: [Localized enlarged lymph nodes] Onset: 09-26-2023 09-26-2023 Episodic Malaise and fatigue (20 sources) Asthenia; Translations: [Other malaise] Episodic Nutritional deficiencies (10 sources) Undernutrition; Translations: [Unspecified protein-calorie malnutrition] 09-12-2017 Chronic Open wounds of extremities (15 sources) Open wound of right lower leg; Translations: [Unspecified open wound, right lower leg, initial encounter] Episodic Open wounds of extremities (20 sources) Open wound of left lower leg; Translations: [Unspecified open wound, left lower leg, initial encounter] Episodic Other connective tissue disease (2 sources) Pain in right lower limb; Translations: [Pain in right leg] 02-22-2023 Episodic Other diseases of veins and lymphatics (20 sources) Lymphedema of bilateral lower limbs; Translations: [Lymphedema, not elsewhere classified] 11-08-2020 Chronic Other diseases of veins and lymphatics (4 sources) Lymphedema, not elsewhere classified; Translations: [Other lymphedema] Onset: 11-12-2024 Chronic Other diseases of veins and lymphatics (10 sources) Venous stasis edema of bilateral lower limbs; Translations: [Venous insufficiency (chronic) (peripheral)] 11-04-2021 Episodic Other diseases of veins and lymphatics (20 sources) Stasis dermatitis; Translations: [Venous insufficiency (chronic) (peripheral)] 11-05-2020 Episodic Other diseases of veins and lymphatics (10 sources) Peripheral venous insufficiency; Translations: [Venous insufficiency (chronic) (peripheral)] 10-27-2021 Episodic Other infections; including parasitic (10 sources) Disorder due to infection; Translations: [Unspecified infectious disease] 11-07-2020 Episodic Other injuries and conditions due to external causes (10 sources) Contusion; Translations: [Other injury of unspecified body region, initial encounter] 12-25-2020 Episodic Other nervous system disorders (20 sources) Disorder of brain; 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, unspecified] 11-05-2020 Chronic Peripheral and visceral atherosclerosis (1 source) Peripheral vascular disease, unspecified; Translations: [Peripheral vascular disease, unspecified] Onset: 03-15-2024 Chronic Phlebitis; thrombophlebitis and thromboembolism (20 sources) History of thromboembolism of vein; Translations: [Personal history of other venous thrombosis and embolism] Episodic Residual codes; unclassified (1 source) Restlessness and agitation; Translations: [Restlessness and agitation] Onset: 06-03-2024 Chronic Residual codes; unclassified (10 sources) Edema of lower extremity; Translations: [Localized edema] 02-25-2021 Episodic Residual codes; unclassified (10 sources) Localized edema; Translations: [Localized edema] 02-27-2019 Episodic Residual codes; unclassified (2 sources) Swelling; Translations: [Edema, unspecified] 02-22-2023 Episodic Residual codes; unclassified (1 source) Edema of left lower limb; Translations: [Localized edema] 10-01-2023 Episodic Skin and subcutaneous tissue infections (20 sources) Cellulitis of lower limb; Translations: [Cellulitis of left lower limb] Episodic Syncope (20 sources) Syncope; Translations: [Syncope and collapse] 11-05-2020 Episodic Varicose veins of lower extremity (10 sources) Skin ulcer; Translations: [Varicose veins of unspecified lower extremity with ulcer of unspecified site] 02-28-2019 Episodic Past or Other Problems Problem Classification Problem Date Documented Date Episodic/Chronic Other connective tissue disease (2 sources) Pain in right leg; Translations: [Pain in right leg] Onset: 02-22-2023 Episodic Other diseases of veins and lymphatics (6 sources) Venous insufficiency (chronic) (peripheral); Translations: [Varicose veins of lower extremities with inflammation] Onset: 03-15-2024 Episodic Other lower respiratory disease (1 source) Other abnormalities of breathing; Translations: [Other abnormalities of breathing] Onset: 02-12-2024 Episodic Residual codes; unclassified (2 sources) Edema, unspecified; Translations: [Edema, unspecified] Onset: 02-22-2023 Episodic Respiratory failure; insufficiency; arrest (adult) (1 source) Acute respiratory failure with hypoxia; Translations: [Acute respiratory failure with hypoxia] Onset: 02-26-2024 Episodic Unclassified (1 source) Agitation Onset: 03-23-2022 Results Test Name Value Interpretation Reference Range Facility Basic Metabolic Profile (BMP )on 10-01-2024 BUN/CRE 19.6 RATIO Normal 03-17 [facility] Comment on above: Order Comment: 212-1 Performed By: #### L 500.2500, L100.0500 #### [facility] [address] [place], [address] Calcium [Mass/Vol] 8.8 mg/dL Normal 7.6-11.0 [facility] Comment on above: Order Comment: 212-1 Performed By: #### L 500.2500, L100.0500 #### [facility] [address] [place], [address] Chloride [Moles/Vol] 102 mmol/L Normal 98-108 [facility] Comment on above: Order Comment: -1 Performed By: #### L 500.2500, L100.0500 #### [facility] [address] [place], [address] CO2 [Moles/Vol] 23.0 mmol/L Normal 21.0-32.0 [facility] Comment on above: Order Comment: -1 Performed By: #### L 500.2500, L100.0500 #### [facility] [address] [place], [address] Creatinine [Mass/Vol] 0.91 mg/dL Normal 0.70-1.20 [facility] Comment on above: Order Comment: 212-1 Performed By: #### L 500.2500, L100.0500 #### [facility] [address] [place], [address] GAP 10 Normal 5-15 [facility] Comment on above: Order Comment: 212-1 Performed By: #### L 500.2500, L100.0500 #### [facility] [address] [place], [address] GFR/1.73 sq M.predicted among non-blacks MDRD (S/P/Bld) [Vol rate/Area] 84 mL/min/{1.73_m2} Normal >60 [facility] Comment on above: Order Comment: Result Comment: mL/m in/1.73m2 CKD-EPI Creatinine Equation (2020) Performed By: #### L 500.2500, L100.0500 #### [facility] [address] [place], [address] Glucose [Mass/Vol] 89 mg/dL Normal 70-99 [facility] Comment on above: Order Comment: Performed By: #### L 500.2500, L100.0500 #### [facility] [address] [place], [address] Potassium [Moles/Vol] 4.5 mmol/L Normal 3.3-5.1 [facility] Comment on above: Order Comment: Performed By: #### L 500.2500, L100.0500 #### [facility] [address] [place], [address] Sodium [Moles/Vol] 134 mmol/L Normal 133-145 [facility] Comment on above: Order Comment: Performed By: #### L 500.2500, L100.0500 #### [facility] [address] [place], [address] Urea nitrogen [Mass/Vol] 18 mg/dL Normal 4-19 [facility] Comment on above: Order Comment: Performed By: #### L 500.2500, L100.0500 #### [facility] [address] [place], [address] CBC-Complete Blood Cnt No Di ffon 10-01-2024 Erythrocyte distribution width (RBC) [Ratio] 13.8 % Normal 11.6-14.6 [facility] Comment on above: Order Comment: Performed By: #### L 500.2500, L100.0500 #### [facility] [address] [place], [address] Hematocrit (Bld) [Volume fraction] 39.0 % Low 40-54 [facility] Comment on above: Order Comment: -1 Performed By: #### L 500.2500, L100.0500 #### [facility] [address] [place], [address] Hemoglobin (Bld) [Mass/Vol] 12.9 g/dL Low 13.0-16.5 [facility] Comment on above: Order Comment: -1 Performed By: #### L 500.2500, L100.0500 #### [facility] [address] [place], [address] MCH (RBC) [Entitic mass] 29.0 pg Normal 27.0-32.0 [facility] Comment on above: Order Comment: - Performed By: #### L 500.2500, L100.0500 #### [facility] [address] [place], [address] MCHC (RBC) [Mass/Vol] 33.1 g/dL Normal 32-36 [facility] Comment on above: Order Comment: -1 Performed By: #### L 500.2500, L100.0500 #### [facility] [address] [place], [address] MCV (RBC) [Entitic vol] 87.6 fL Normal 80-94 [facility] Comment on above: Order Comment: -1 Performed By: #### L 500.2500, L100.0500 #### [facility] [address] [place], [address] Platelet mean volume (Bld) [Entitic vol] 9.6 fL Normal 6.2-12.0 [facility] Comment on above: Order Comment: -1 Performed By: #### L 500.2500, L100.0500 #### [facility] [address] [place], [address] Platelets (Bld) [#/Vol] 281 10*3/uL Normal 150-450 [facility] Comment on above: Order Comment: 212-1 Performed By: #### L 500.2500, L100.0500 #### [facility] [address] [place], [address] RBC (Bld) [#/Vol] 4.45 10*6/uL Low 4.6-6.2 [facility] Comment on above: Order Comment: 212-1 Performed By: #### L 500.2500, L100.0500 #### [facility] [address] [place], [address] RDW SD 44.6 fl High 35.1-43.9 [facility] Comment on above: Order Comment: 212-1 Performed By: #### L 500.2500, L100.0500 #### [facility] [address] [place], [address] WBC (Bld) [#/Vol] 9.6 10*3/uL Normal 4.4-11.0 [facility] Comment on above: Order Comment: 212-1 Performed By: #### L 500.2500, L100.0500 #### [facility] [address] [place], [address] Basic Metabolic Profile (BMP )on 02-09-2024 BUN/CRE 28.9 RATIO High 10-20 [facility] Comment on above: Order Comment: 215.1 Performed By: #### L 500.2500 #### [facility] [address] [place], [address] CA,Total 9.1 mg/dL Normal 8.5-10.1 [facility] Comment on above: Order Comment: 215.1 Performed By: #### L 500.2500 #### [facility] [address] [place], [address] Chloride [Moles/Vol] 100 mmol/L Normal 98-107 [facility] Comment on above: Order Comment: 215.1 Performed By: #### L 500.2500 #### [facility] [address] [place], [address] CO2 [Moles/Vol] 25.0 mmol/L Normal 21.0-32.0 [facility] Comment on above: Order Comment: 215.1 Performed By: #### L 500.2500 #### [facility] [address] [place], [address] Creatinine [Mass/Vol] 0.76 mg/dL Normal 0.70-1.30 [facility] Comment on above: Order Comment: 215.1 Result Comment: The validity of the calculated GFR GFRAA in patients over 70 years has not been determined. Clinical correlation is essential. Performed By: #### L 500.2500 #### [facility] [address] [place], [address] EST GFR - AA 126 mL/min Normal >60 [facility] Comment on above: Order Comment: 215.1 Result Comment: Afri can [place] GFR Calc Performed By: #### L 500.2500 #### [facility] [address] [place], [address] GAP 8 Normal 5-15 [facility] Comment on above: Order Comment: 215.1 Performed By: #### L 500.2500 #### [facility] [facility] [address] [place], [address] GFR/1.73 sq M.predicted among non-blacks MDRD (S/P/Bld) [Vol rate/Area] 104 mL/min/{1.73_m2} Normal >60 [facility] Comment on above: Order Comment: 215.1 Result Comment: Non- GFR Calc Performed By: #### L 500.2500 #### [facility] [address] [place], [address] Glucose [Mass/Vol] 94 mg/dL Normal 74-106 [facility] Comment on above: Order Comment: 215.1 Performed By: #### L 500.2500 #### [facility] [address] [place], [address] Potassium [Moles/Vol] 4.1 mmol/L Normal 3.5-5.1 [facility] Comment on above: Order Comment: 215.1 Performed By: #### L 500.2500 #### [facility] [address] [place], [address] Sodium [Moles/Vol] 133 mmol/L Low 136-145 [facility] Comment on above: Order Comment: 215.1 Performed By: #### L 500.2500 #### [facility] [address] [place], [address] Urea nitrogen [Mass/Vol] 22 mg/dL High 7-18 [facility] Comment on above: Order Comment: 215.1 Performed By: #### L 500.2500 #### [facility] [address] [place], [address] CBC-Complete Blood Cnt No Di ffon 02-07-2024 Erythrocyte distribution width (RBC) [Ratio] 13.5 % Normal 11.6-14.6 [facility] Comment on above: Order Comment: 215.1 Performed By: #### L 100.0500, L500.4050 #### [facility] [address] [place], [address] Hematocrit (Bld) [Volume fraction] 36.3 % Low 40-54 [facility] Comment on above: Order Comment: 215.1 Performed By: #### L 100.0500, L500.4050 #### [facility] [address] [place], [address] Hemoglobin (Bld) [Mass/Vol] 11.9 g/dL Low 13.0-16.5 [facility] Comment on above: Order Comment: 215.1 Performed By: #### L 100.0500, L500.4050 #### [facility] [address] [place], [address] MCH (RBC) [Entitic mass] 29.3 pg Normal 27.0-32.0 [facility] Comment on above: Order Comment: 215.1 Performed By: #### L 100.0500, L500.4050 #### [facility] [address] [place], [address] MCHC (RBC) [Mass/Vol] 32.8 g/dL Normal 32-36 [facility] Comment on above: Order Comment: 215.1 Performed By: #### L 100.0500, L500.4050 #### [facility] [address] [place], [address] MCV (RBC) [Entitic vol] 89.4 fL Normal 80-94 [facility] Comment on above: Order Comment: 215.1 Performed By: #### L 100.0500, L500.4050 #### [facility] [address] [place], [address] Platelet mean volume (Bld) [Entitic vol] 8.9 fL Normal 6.2-12.0 [facility] Comment on above: Order Comment: 215.1 Performed By: #### L 100.0500, L500.4050 #### [facility] [address] [place] [place], [address] Platelets (Bld) [#/Vol] 307 10*3/uL Normal 150-450 [facility] Comment on above: Order Comment: 215.1 Performed By: #### L 100.0500, L500.4050 #### [facility] [address] [place], [address] RBC (Bld) [#/Vol] 4.06 10*6/uL Low 4.6-6.2 [facility] Comment on above: Order Comment: 215.1 Performed By: #### L 100.0500, L500.4050 #### [facility] [address] [place], [address] RDW SD 44.5 fl High 35.1-43.9 [facility] Comment on above: Order Comment: 215.1 Performed By: #### L 100.0500, L500.4050 #### [facility] [address] [place], [address] WBC (Bld) [#/Vol] 13.2 10*3/uL High 4.4-11.0 [facility] Comment on above: Order Comment: 215.1 Performed By: #### L 100.0500, L500.4050 #### [facility] [address] [place], [address] Comprehensive Metabolic Prof ilon 02-07-2024 Albumin [Mass/Vol] 2.6 g/dL Low 3.2-5.0 [facility] Comment on above: Order Comment: 215.1 Performed By: #### L 100.0500, L500.4050 #### [facility] [address] [place], [address] Albumin/Globulin [Mass ratio] 0.5 {ratio} Low 0.9-2.4 [facility] Comment on above: Order Comment: 215.1 Performed By: #### L 100.0500, L500.4050 #### [facility] [address] [place], [address] ALK P 102 U/L Normal 45-117 [facility] Comment on above: Order Comment: 215.1 Performed By: #### L 100.0500, L500.4050 #### [facility] [address] [place], [address] ALT [Catalytic activity/Vol] 22 U/L Normal 16-61 [facility] Comment on above: Order Comment: 215.1 Performed By: #### L 100.0500, L500.4050 #### [facility] [address] [place], [address] AST [Catalytic activity/Vol] 21 U/L Normal 15-37 [facility] Comment on above: Order Comment: 215.1 Performed By: #### L 100.0500, L500.4050 #### [facility] [address] [place], [address] Bilirubin [Mass/Vol] 0.60 mg/dL Normal 0.20-1.00 [facility] Comment on above: Order Comment: 215.1 Result Comment: For patients on eltrombopag therapy, use of Dimension Sycamore TBIL is not recommended. Performed By: #### L 100.0500, L500.4050 #### [facility] [address] [place], [address] BUN/CRE 21.5 RATIO High 10-20 [facility] Comment on above: Order Comment: 215.1 Performed By: #### L 100.0500, L500.4050 #### [facility] [address] [place], [address] CA,Total 9.2 mg/dL Normal 8.5-10.1 [facility] Comment on above: Order Comment: 215.1 Performed By: #### L 100.0500, L500.4050 #### [facility] [address] [place], [address] Chloride [Moles/Vol] 97 mmol/L Low 98-107 [facility] Comment on above: Order Comment: 215.1 Performed By: #### L 100.0500, L500.4050 #### [facility] [address] [place], [address] CO2 [Moles/Vol] 25.0 mmol/L Normal 21.0-32.0 [facility] Comment on above: Order Comment: 215.1 Performed By: #### L 100.0500, L500.4050 #### [facility] [address] [place], [address] Creatinine [Mass/Vol] 0.88 mg/dL Normal 0.70-1.30 [facility] Comment on above: Order Comment: 215.1 Result Comment: The validity of the calculated GFR GFRAA in patients over 70 years has not been determined. Clinical correlation is essential. Performed By: #### L 100.0500, L500.4050 #### [facility] [address] [place], [address] EST GFR - AA 106 mL/min Normal >60 [facility] Comment on above: Order Comment: 215.1 Result Comment: Afri can Chadian GFR Calc Performed By: #### L 100.0500, L500.4050 #### [facility] [address] [place], [address] GAP 6 Normal 5-15 [facility] Comment on above: Order Comment: 215.1 Performed By: #### L 100.0500, L500.4050 #### [facility] [address] [place], [address] GFR/1.73 sq M.predicted among non-blacks MDRD (S/P/Bld) [Vol rate/Area] 88 mL/min/{1.73_m2} Normal >60 [facility] Comment on above: Order Comment: 215.1 Result Comment: Non- GFR Calc Performed By: #### L 100.0500, L500.4050 #### [facility] [address] [place], [address] Globulin (S) [Mass/Vol] 5.0 g/dL High 2.2-4.2 [facility] Comment on above: Order Comment: 215.1 Performed By: #### L 100.0500, L500.4050 #### [facility] [address] [place], [address] Glucose [Mass/Vol] 105 mg/dL Normal 74-106 [facility] Comment on above: Order Comment: 215.1 Result Comment: Fast ing Glucose result from 100 to 125 mg/dL suggests IMPAIRED HOMEOSTASIS per A.D.A. criteria. Performed By: #### L 100.0500, L500.4050 #### [facility] [address] [place], [address] Potassium [Moles/Vol] 4.1 mmol/L Normal 3.5-5.1 [facility] Comment on above: Order Comment: 215.1 Performed By: #### L 100.0500, L500.4050 #### [facility] [address] [place], [address] Sodium [Moles/Vol] 128 mmol/L Low 136-145 [facility] Comment on above: Order Comment: 215.1 Performed By: #### L 100.0500, L500.4050 #### [facility] [address] [place], [address] T PROT 7.6 g/dL Normal 6.4-8.2 [facility] Comment on above: Order Comment: 215.1 Performed By: #### L 100.0500, L500.4050 #### [facility] [address] [place], [address] Urea nitrogen [Mass/Vol] 19 mg/dL High 7-18 [facility] Comment on above: Order Comment: 215.1 Performed By: #### L 100.0500, L500.4050 #### [facility] [address] [place], [address] CBC-Complete Blood Cnt No Di ffon 01-18-2024 Erythrocyte distribution width (RBC) [Ratio] 13.2 % Normal 11.6-14.6 [facility] Comment on above: Order Comment: 215.1 Performed By: #### L 100.0500, L500.4050 #### [facility] [address] [place], [address] Hematocrit (Bld) [Volume fraction] 34.7 % Low 40-54 [facility] Comment on above: Order Comment: 215.1 Performed By: #### L 100.0500, L500.4050 #### [facility] [address] [place], [address] Hemoglobin (Bld) [Mass/Vol] 11.3 g/dL Low 13.0-16.5 [facility] Comment on above: Order Comment: 215.1 Performed By: #### L 100.0500, L500.4050 #### [facility] [address] [place], [address] MCH (RBC) [Entitic mass] 28.8 pg Normal 27.0-32.0 [facility] Comment on above: Order Comment: 215.1 Performed By: #### L 100.0500, L500.4050 #### [facility] [address] [place], [address] MCHC (RBC) [Mass/Vol] 32.6 g/dL Normal 32-36 [facility] Comment on above: Order Comment: 215.1 Performed By: #### L 100.0500, L500.4050 #### [facility] [address] [place], [address] MCV (RBC) [Entitic vol] 88.5 fL Normal 80-94 [facility] Comment on above: Order Comment: 215.1 Performed By: #### L 100.0500, L500.4050 #### [facility] [address] [place], [address] Platelet mean volume (Bld) [Entitic vol] 9.3 fL Normal 6.2-12.0 [facility] Comment on above: Order Comment: 215.1 Performed By: #### L 100.0500, L500.4050 #### [facility] [address] [place], [address] Platelets (Bld) [#/Vol] 300 10*3/uL Normal 150-450 [facility] Comment on above: Order Comment: 215.1 Performed By: #### L 100.0500, L500.4050 #### [facility] [address] [place], [address] RBC (Bld) [#/Vol] 3.92 10*6/uL Low 4.6-6.2 [facility] Comment on above: Order Comment: 215.1 Performed By: #### L 100.0500, L500.4050 #### [facility] [address] [place], [address] RDW SD 43.5 fl Normal 35.1-43.9 [facility] Comment on above: Order Comment: 215.1 Performed By: #### L 100.0500, L500.4050 #### [facility] [address] [place], [address] WBC (Bld) [#/Vol] 10.8 10*3/uL Normal 4.4-11.0 [facility] Comment on above: Order Comment: 215.1 Performed By: #### L 100.0500, L500.4050 #### [facility] [address] [place], [address] Comprehensive Metabolic Prof [facility] 01-18-2024 Albumin [Mass/Vol] 2.2 g/dL Low 3.2-5.0 [facility] Comment on above: Order Comment: 215.1 Performed By: #### L 100.0500, L500.4050 #### [facility] [address] [place], [address] Albumin/Globulin [Mass ratio] 0.5 {ratio} Low 0.9-2.4 [facility] Comment on above: Order Comment: 215.1 Performed By: #### L 100.0500, L500.4050 #### [facility] [address] [place], [address] ALK P 94 U/L Normal 45-117 [facility] Comment on above: Order Comment: 215.1 Performed By: #### L 100.0500, L500.4050 #### [facility] [address] [place], [address] ALT [Catalytic activity/Vol] 32 U/L Normal 16-61 [facility] Comment on above: Order Comment: 215.1 Performed By: #### L 100.0500, L500.4050 #### [facility] [address] [place], [address] AST [Catalytic activity/Vol] 30 U/L Normal 15-37 [facility] Comment on above: Order Comment: 215.1 Performed By: #### L 100.0500, L500.4050 #### [facility] [address] [place], [address] Bilirubin [Mass/Vol] 0.50 mg/dL Normal 0.20-1.00 [facility] Comment on above: Order Comment: 215.1 Result Comment: For patients on eltrombopag therapy, use of Dimension Sycamore TBIL is not recommended. Performed By: #### L 100.0500, L500.4050 #### [facility] [address] [place], [address] BUN/CRE 24.1 RATIO High 10-20 [facility] Comment on above: Order Comment: 215.1 Performed By: #### L 100.0500, L500.4050 #### [facility] [address] [place], [address] CA,Total 8.4 mg/dL Low 8.5-10.1 [facility] Comment on above: Order Comment: 215.1 Performed By: #### L 100.0500, L500.4050 #### [facility] [address] [place], [address] Chloride [Moles/Vol] 99 mmol/L Normal 98-107 [facility] Comment on above: Order Comment: 215.1 Performed By: #### L 100.0500, L500.4050 #### [facility] [address] [place], [address] CO2 [Moles/Vol] 27.0 mmol/L Normal 21.0-32.0 [facility] Comment on above: Order Comment: 215.1 Performed By: #### L 100.0500, L500.4050 #### [facility] [address] [place], [address] Creatinine [Mass/Vol] 0.79 mg/dL Normal 0.70-1.30 [facility] Comment on above: Order Comment: 215.1 Result Comment: The validity of the calculated GFR GFRAA in patients over 70 years has not been determined. Clinical correlation is essential. Performed By: #### L 100.0500, L500.4050 #### [facility] [address] [place], [address] EST GFR - AA 121 mL/min Normal >60 [facility] Comment on above: Order Comment: 215.1 Result Comment: Afri can [place] GFR Calc Performed By: #### L 100.0500, L500.4050 #### [facility] [address] [place], [address] GAP 6 Normal 5-15 [facility] Comment on above: Order Comment: 215.1 Performed By: #### L 100.0500, L500.4050 #### [facility] [address] [place], [address] GFR/1.73 sq M.predicted among non-blacks MDRD (S/P/Bld) [Vol rate/Area] 100 mL/min/{1.73_m2} Normal >60 [facility] Comment on above: Order Comment: 215.1 Result Comment: Non- GFR Calc Performed By: #### L 100.0500, L500.4050 #### [facility] [address] [place], [address] Globulin (S) [Mass/Vol] 4.4 g/dL High 2.2-4.2 [facility] Comment on above: Order Comment: 215.1 Performed By: #### L 100.0500, L500.4050 #### [facility] [address] [place], [address] Glucose [Mass/Vol] 98 mg/dL Normal 74-106 [facility] Comment on above: Order Comment: 215.1 Performed By: #### L 100.0500, L500.4050 #### [facility] [address] [place], [address] Potassium [Moles/Vol] 4.1 mmol/L Normal 3.5-5.1 [facility] Comment on above: Order Comment: 215.1 Performed By: #### L 100.0500, L500.4050 #### [facility] [address] [place], [address] Sodium [Moles/Vol] 132 mmol/L Low 136-145 [facility] Comment on above: Order Comment: 215.1 Performed By: #### L 100.0500, L500.4050 #### [facility] [address] [place], [address] T PROT 6.6 g/dL Normal 6.4-8.2 [facility] Comment on above: Order Comment: 215.1 Performed By: #### L 100.0500, L500.4050 #### [facility] [address] [place], [address] Urea nitrogen [Mass/Vol] 19 mg/dL High 7-18 [facility] Comment on above: Order Comment: 215.1 Performed By: #### L 100.0500, L500.4050 #### [facility] [address] [place], [place], [address] MR/BMS.West 12-20-2023 MR/BMS.MARIANNAS [facility] [address] [place] [address] OFFICE VISIT Date of Service: 12/20/23 MR#: [id number] Acct: [id number] Name: OBRIEN,HUTCHINS L Rep #: [id number] : 1940 Provider: HILDA Conway Age/Sex: 83/M Location: [facility] Status: Signed Intake Vital Signs 10/24/23 09:23 12/20/23 08:48 Height 5 ft 9 in Weight: 238 lb BP 117/73 Blood Pressure Location Lt brachial Position Sitting Respiration 16 Pulse 61 Pulse Source Monitor Temp 97.3 F L Temp Source Temporal Pulse Oximetry (%) 97 Oxygen Delivery Method room air Intake Visit Reasons: 4 W F/U Is patient in pain?: No Allergies vancomycin Allergy (Verified 12/20/23 08:52) Anaphylaxis Medications ???Medication ???Instructions ???Recorded ???Confirmed ???Type acetaminophen 500 mg tablet 500 mg PO Q4H PRN Pain Score 1-10 10/24/23 12/20/23 History albuterol sulfate 90 mcg/actuation 2 puff inhalation Q4H PRN 10/24/23 12/20/23 History aerosol inhaler aluminum-mag hydroxide-simethicone 15 ml PO Q4H PRN 10/24/23 12/20/23 History 200 mg-200 mg-20 mg/5 mL oral susp (Lorie-Lanta) apixaban 5 mg tablet (Eliquis) 5 mg PO BID 10/24/23 12/20/23 History aspirin 81 mg tablet,delayed 81 mg PO DAILY 10/24/23 12/20/23 History release bisacodyl 10 mg rectal suppository 10 mg NC DAILY PRN 10/24/23 12/20/23 History carboxymethylcellulose sodium 0.5 2 drp ophthalmic (eye) BID PRN 10/24/23 12/20/23 History % eye drops citalopram 20 mg tablet 20 mg PO DAILY 10/24/23 12/20/23 History donepezil 10 mg tablet 10 mg PO QHS 10/24/23 12/20/23 History guaifenesin 100 mg/5 mL oral 200 mg PO Q4H PRN 10/24/23 12/20/23 History liquid (Lorie-Tussin) magnesium hydroxide 400 mg/5 mL 30 ml PO DAILY PRN 10/24/23 12/20/23 History oral suspension (Milk of Magnesia) menthol 5 % topical gel (Biofreeze ea topical BID PRN 10/24/23 12/20/23 History (menthol)) sennosides 8.6 mg-docusate sodium 1 tab-cap PO DAILY PRN 10/24/23 12/20/23 History 50 mg capsule (Senna Plus) sodium phosphates 9.5 gram-3.5 118 ml NC ONCE PRN 10/24/23 12/20/23 History gram/59 mL enema spironolactone 50 mg tablet 50 mg PO BID 10/24/23 12/20/23 History buspirone 5 mg tablet 5 mg PO BID 11/22/23 12/20/23 History Have you fallen in the past year?: Yes PFSH Medical History Chondrocostal junction syndrome Age-related nuclear cataract of both eyes Insomnia Depression Psychosis Restlessness and agitation Migraines Former smoker Lymphedema Iron deficiency anemia Venous stasis dermatitis Venous insufficiency (chronic) (peripheral) DVT of leg (deep venous thrombosis) HLD (hyperlipidemia) Personal history of prostate cancer Family History Other Alcoholism Social History household members: none Smoking Status: Former smoker alcohol intake: never substance use type: does not use HPI HPI HPI: ARTEMIO OBRIEN, is a 83 M who returns to the office today for follow-up of his BLE edema, recurrent wounds, and PVD. Recall that he has had significant BLE edema for a few years, worse left than right. He has also had persistent and recurrent lower leg wounds bilaterally, again more in the left leg than right. At last OV, he had two wounds on the L calf which remain stable today. Unfortunately, he also has a new wound on the L tellez which is small and superficial and a wound/skin tear on the R lateral calf. He has continued to use Circaids for compression. These have improved his edema to an extent, but he has still has significant edema which collects where the stockings end so his thighs are very edematous. He had an arterial study at [facility] which showed R LIZ 0.7 and L LIZ 0.8. Venous reflux study 10/30/23 showed R SFJ/ASV incompetence, prior GSV/SSV ablation and L CFV and FV incompetence and SFJ/GSV/ASV incompetence. No known history of prior VTE. He did have RLE EVLA ablation by Dr. Kemp in 2011. ROS General General: Yes weight change; No appetite, fatigue, colon cancer, breast cancer or weakness HEENT HEENT: No difficulty swallowing, eye injury, eye surgery, swollen glands or hoarseness Endo Endocrine: Yes Hair loss; No thyroid disease, diabetes mellitus, thyroid cancer, heat intolerance or cold intolerance Skin Skin: No rash or changing moles Musc Musculoskeletal: No back problems, arthritis, rheumatoid arthritis, gout or joint pain Cardio Cardiovascular: No murmur, pacemaker, heart disease, atrial fibrillation, high blood pressure, heart attack, heart stent, palpitations, shortness of breat with exertion or chest pain Psych Psychiatric: No depression, anxiety or (more content not included)... Normal [facility] MR/BMS.West 11-22-2023 MR/BMS.[facility] [address] [place] [address] OFFICE VISIT Date of Service: 11/22/23 MR#: [id number] Acct: [id number] Name: ARTEMIO OBRIEN Rep #: [id number] : 1940 Provider: HILDA Conway Age/Sex: 83/M Location: [facility] Status: Signed Intake Vital Signs 10/24/23 09:23 11/22/23 13:09 Height 5 ft 9 in Weight: 231 lb 233 lb BMI 34.1 BP 111/68 130/77 H Blood Pressure Location Lt brachial Lt brachial Position Sitting Sitting Respiration 14 16 Pulse 60 61 Pulse Source Monitor Monitor Temp 98.0 F 97.7 F L Temp Source Temporal Temporal Pulse Oximetry (%) 96 97 Oxygen Delivery Method room air room air Intake Visit Reasons: F/U Allergies vancomycin Allergy (Verified 10/24/23 09:03) Anaphylaxis Medications ???Medication ???Instructions ???Recorded ???Confirmed ???Type acetaminophen 500 mg tablet 500 mg PO Q4H PRN Pain Score 1-10 10/24/23 11/22/23 History albuterol sulfate 90 mcg/actuation 2 puff inhalation Q4H PRN 10/24/23 11/22/23 History aerosol inhaler aluminum-mag hydroxide-simethicone 15 ml PO Q4H PRN 10/24/23 11/22/23 History 200 mg-200 mg-20 mg/5 mL oral susp (Lorie-Lanta) apixaban 5 mg tablet (Eliquis) 5 mg PO BID 10/24/23 11/22/23 History aspirin 81 mg tablet,delayed 81 mg PO DAILY 10/24/23 11/22/23 History release bisacodyl 10 mg rectal suppository 10 mg NC DAILY PRN 10/24/23 11/22/23 History carboxymethylcellulose sodium 0.5 2 drp ophthalmic (eye) BID PRN 10/24/23 11/22/23 History % eye drops citalopram 20 mg tablet 20 mg PO DAILY 10/24/23 11/22/23 History donepezil 10 mg tablet 10 mg PO QHS 10/24/23 11/22/23 History guaifenesin 100 mg/5 mL oral 200 mg PO Q4H PRN 10/24/23 11/22/23 History liquid (Lorie-Tussin) magnesium hydroxide 400 mg/5 mL 30 ml PO DAILY PRN 10/24/23 11/22/23 History oral suspension (Milk of Magnesia) menthol 5 % topical gel (Biofreeze ea topical BID PRN 10/24/23 11/22/23 History (menthol)) sennosides 8.6 mg-docusate sodium 1 tab-cap PO DAILY PRN 10/24/23 11/22/23 History 50 mg capsule (Senna Plus) sodium phosphates 9.5 gram-3.5 118 ml NC ONCE PRN 10/24/23 11/22/23 History gram/59 mL enema spironolactone 50 mg tablet 50 mg PO BID 10/24/23 11/22/23 History buspirone 5 mg tablet 5 mg PO BID 11/22/23 11/22/23 History Have you fallen in the past year?: Yes PFSH Medical History Chondrocostal junction syndrome Age-related nuclear cataract of both eyes Insomnia Depression Psychosis Restlessness and agitation Migraines Former smoker Lymphedema Iron deficiency anemia Venous stasis dermatitis Venous insufficiency (chronic) (peripheral) DVT of leg (deep venous thrombosis) HLD (hyperlipidemia) Personal history of prostate cancer Family History (Updated 11/22/23 @ 13:09 by Isaura Manzo) Other Alcoholism Social History household members: none Smoking Status: Former smoker alcohol intake: never substance use type: does not use HPI HPI HPI: ARTEMIO OBRIEN, is a 83 M who returns to the office today for follow-up of his BLE edema, recurrent wounds, and PVD. He is accompanied today by staff member from [facility] and his daughter. Since last visit, he has completed a venous reflux study. Recall that he has had significant BLE edema for a few years, worse left than right. He has also had persistent and recurrent lower leg wounds bilaterally, again more in the left leg than right. At present, he has two remaining wounds on the L calf (started with 5, three have remained healed to this point). He has been using Circaids for compression and receiving wound care at [facility]. He elevates his legs as much as he can. His edema from the knees down is better controlled with compression, but he still has significant edema in his thighs. The edema does also negatively affects his mobility. He had an arterial study at [facility] which showed R LIZ 0.7 and L LIZ 0.8. He is not diabetic. He is a former smoker. Venous reflux study 10/30/23 showed R SFJ/ASV incompetence, prior GSV/SSV ablation and L CFV and FV incompetence and SFJ/GSV/ASV incompetence. No known history of prior VTE. He did have RLE EVLA ablation by Dr. Kemp in 2012. ROS General General: Yes weight change; No appetite, fatigue, colon cancer, breast cancer or weakness HEENT HEENT: No difficulty swallowing, eye injury, eye surgery, swollen glands or hoarseness Endo Endocrine: Yes Hair loss; No thyroid disease, diabetes mellitus, thyroid cancer, heat intolerance or cold intolerance Skin Skin: No rash or changing moles Musc Musculoskeletal: Yes arthritis; No back problems, rheumatoid arthritis or gout Cardio Cardiovascu (more content not included)... Normal [facility] Office Visiton 10-30-2023 Follow-up visit [id number] Juan Obrien 1940 M Date Provider Department Center 10/30/2023 [id number] HANSEN [facility] None Family History Family Status - Relation Status Age at Father Mother Level of Service:17803 NC OFFICE/OUTPATIENT ESTABLISHED MOD [facility] 30 MIN Reason for Visit and Comments: Follow-up [471753] - Inguinal Lymphadenopathy and review Ct Scan Normal [facility] Progress Noteon 10-30-2023 Progress Note Alvaro Mcmillan MD 10/30/2023 at 1:38 PM Office follow up PATIENT NAME: Artemio Obrien DATE OF : 1940 TODAY'S DATE: 10/30/2023 CHIEF COMPLAINT: Chief Complaint Patient presents with Follow-up Inguinal Lymphadenopathy and review Ct Scan Subjective: Mr. Obrien is a 83 y.o. 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 Distal ileum containing right inguinal hernia arising lateral to the inferior epigastric artery with hernia sac measuring up to 8.4 x 3.5 x 7 cm. No upstream bowel dilatation. Bilateral borderline and mildly enlarged inguinal lymph nodes with lobular contour measuring up to 1.7 cm in short axis on the left and 1.6 cm in short axis on the right. Schmorl's node in the L4 superior endplate. IMPRESSION: 1. Small bowel containing right inguinal hernia with no evidence of bowel obstruction. 2. Mild bilateral inguinal lymphadenopathy, nonspecific in etiology.. Report Dictated on Electronically Signed By: Jarett Gonzalez DR Electronically Signed Date/Time: 10/16/2023 9:06 AM EDT He is having no issues CT reviewed with patient and family I explained likely what was seen on US at [facility] was the inguinal hernia Patient is asymptomatic from it No gi issues Review of Systems Medications Current Outpatient Medications: apixaban (Eliquis) 5 MG tablet, Take 5 mg by mouth 2 times daily., Disp: , Rfl: aspirin 81 MG EC tablet, Take 81 mg by mouth daily., Disp: , Rfl: citalopram (CeleXA) 10 MG tablet, Take 20 mg by mouth daily., Disp: , Rfl: citalopram (CeleXA) 10 MG tablet, Take 5 mg by mouth every evening., Disp: , Rfl: donepezil (Aricept) 5 MG tablet, Take 10 mg by mouth Nightly., Disp: , Rfl: spironolactone (Aldactone) 50 MG tablet, Take 50 mg by mouth 2 times daily., Disp: , Rfl: OLANZapine (ZyPREXA) 2.5 MG tablet, Take 1 tablet (2.5 mg) by mouth Nightly., Disp: 30 tablet, Rfl: 0 Vitals: BP 139/59 Pulse 66 Ht 5' 10" (1.778 m) Wt 235 lb (107 kg) BMI 33.72 kg/m? Physical Exam Physical Exam LABS: No results found for: PSA No results found for: TESTOSTERONE Lab Results Component Value Date WBC 6.3 03/23/2022 HGB 11.5 (L) 03/23/2022 MCV 89.7 03/23/2022 Lab Results Component Value Date GLUCOSE 94 03/23/2022 CALCIUM 8.8 03/23/2022 NA 135 03/23/2022 K 4.8 03/23/2022 CO2 26 03/23/2022 CL 105 03/23/2022 BUN 32 (H) 03/23/2022 CREATININE 0.73 03/23/2022 No components found for: "LABURIN" @LASTPROCPOC@ Pathology: Radiology: Impression/Plan: Artemio was seen today for follow-up. Diagnoses and all orders for this visit: Non-recurrent unilateral inguinal hernia without obstruction or gangrene (Primary) I offerred Gen surg eval. They do not want this given age/dementia They should fu with PCP and make PCP aware of these findings I made them aware of signs of symptoms of incarated inguinal hernia, they are aware Follow up if symptoms worsen or fail to improve. Alvaro Mcmillan MD 10/30/23 1:38 PM Normal [facility] CT PELVIS W IV CONTRASTon CT PELVIS W IV CONTRAST Patient Name: [facility]EM[facility]RIEN : 1940 [id number] Exam Date/Time: 10/12/2023 08:30 Procedure: CT PELVIS W IV CONTRAST Ordering Provider: MCMILLAN NAVEEN Reason For Exam: Lymphadenopathy, groin CT PELVIS WITH CONTRAST CLINICAL INDICATION: Lymphadenopathy TECHNIQUE: Transaxial through the pelvis following oral contrast with dynamic intravenous infusion of 75 cc non-ionic contrast media. Coronal and sagittal reconstructions were reviewed. Dose reduction was employed with automated exposure control. COMPARISON: None. FINDINGS: No mass or fluid collection is identified within the pelvis. Distal ileum containing right inguinal hernia arising lateral to the inferior epigastric artery with hernia sac measuring up to 8.4 x 3.5 x 7 cm. No upstream bowel dilatation. Bilateral borderline and mildly enlarged inguinal lymph nodes with lobular contour measuring up to 1.7 cm in short axis on the left and 1.6 cm in short axis on the right. Schmorl's node in the L4 superior endplate. IMPRESSION: 1. Small bowel containing right inguinal hernia with no evidence of bowel obstruction. 2. Mild bilateral inguinal lymphadenopathy, nonspecific in etiology.. Report Dictated on Electronically Signed By: Jarett Gonzlaez DR Electronically Signed Date/Time: 10/16/2023 9:06 AM EDT LEFT LEG SWELLING PER FAMILY PATIENT HAS LUMP IN LEFT GROIN PT STATES HIS LEFT SIDE GROIN HURTS Normal [facility] Office Visiton 09-26-2023 Follow-up visit [id number] CamilleJuan e 1940 Date Provider Department Center 09/26/2023 ALVARO SHEEHAN [facility] None No family history on file Level of Service:61301 NC OFFICE/OUTPATIENT NEW MODERATE MDM 45 MINUTES Reason for Visit and Comments: New Patient [542] bilateral inguinal lymph nodes [Other] Normal [facility] Progress Noteon 09-26-2023 Progress Note Alvaro Mcmillan MD 09/26/2023 at 3:06 PM UROLOGY INITIAL OFFICE VISIT PATIENT NAME: Artemio Obrien DATE OF : 1940 TODAY'S DATE: 09/26/2023 Chief Complaint: Chief Complaint Patient presents with New Patient bilateral inguinal lymph nodes HISTORY OF PRESENT ILLNESS: Mr. Obrien is a 83 y.o. 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 PastSurgical History: No past surgical history on file. CurrentMedications: Current Outpatient Medications: apixaban (Eliquis) 5 MG tablet, Take 5 mg by mouth 2 times daily., Disp: , Rfl: aspirin 81 MG EC tablet, Take 81 mg by mouth daily., Disp: , Rfl: citalopram (CeleXA) 10 MG tablet, Take 20 mg by mouth daily., Disp: , Rfl: donepezil (Aricept) 5 MG tablet, Take 10 mg by mouth Nightly., Disp: , Rfl: spironolactone (Aldactone) 50 MG tablet, Take 50 mg by mouth 2 times daily., Disp: , Rfl: citalopram (CeleXA) 10 MG tablet, Take 5 mg by mouth every evening., Disp: , Rfl: OLANZapine (ZyPREXA) 2.5 MG tablet, Take 1 tablet (2.5 mg) by mouth Nightly., Disp: 30 tablet, Rfl: 0 Allergies: Allergies Allergen Reactions Vancomycin Social History: Social History Socioeconomic History Marital status: Family History: No family history on file. PHYSICAL EXAM: VITALS: Ht 1.778 m (5' 10") Wt 107 kg (235 lb) BMI 33.72 kg/m? Physical Exam DATA: No results found for: PSA No results found for: TESTOSTERONE Lab Results Component Value Date WBC 6.3 03/23/2022 HGB 11.5 (L) 03/23/2022 MCV 89.7 03/23/2022 Lab Results Component Value Date GLUCOSE 94 03/23/2022 CALCIUM 8.8 03/23/2022 NA 135 03/23/2022 K 4.8 03/23/2022 CO2 26 03/23/2022 CL 105 03/23/2022 BUN 32 (H) 03/23/2022 CREATININE 0.73 03/23/2022 No components found for: "LABURIN" @LASTPROCPOC@ Radiology Review: Impression/Plan Artemio was seen today for new patient and bilateral inguinal lymph nodes. Diagnoses and all orders for this visit: Inguinal lymphadenopathy (Primary) - CT pelvis w IV contrast; Future - Creatinine, Serum; Future - Creatinine, Serum Plan for CT pelvis Follow up in about 3 weeks (around 10/17/2023) for CT prior . Alvaro Mcmillan MD 09/26/23 3:[address] [facility] 36on 09-11-2023 36 Anjelica from [facility] the pt is on called in to make pt an appt for enlarged lymph nodes in the groin, he is scheduled 09/26/[address] Mcmillan and will fax over labs/imaging/and office notes. Normal [facility] Basophil percentageOrdered B y: Robina Gregorio on 04-05-2023 Bilirubin [Mass/Vol] 0.50 mg/dL 0.20-1.00 [facility] Comment on above: For patients on eltr ombopag therapy, use of Dimension [place] TBIL is not recommended. Chloride [Moles/Vol] 104 mmol/L 98-107 [facility] Glucose [Mass/Vol] 95 mg/dL 74-106 [facility] Potassium [Moles/Vol] 4.3 mmol/L 3.5-5.1 [facility] Protein [Mass/Vol] 6.7 g/dL 6.4-8.2 [facility] Sodium [Moles/Vol] 137 mmol/L 136-145 [facility] WBC (Bld) [#/Vol] 6.6 10*3/uL 4.4-11.0 [facility] Blood erythrocytes count (nu mber/volume)Ordered By: Robina Gregorio on 04-05-2023 RBC (Bld) [#/Vol] 4.09 10*6/uL 4.6-6.2 [facility] Blood hemoglobin measurement (mass/volume)Ordered By: Robina Gregorio on 04-05-2023 Hemoglobin (Bld) [Mass/Vol] 12.0 g/dL 13.0-16.5 [facility] Blood platelet mean volumeOr dered By: Robina Gregorio on 04-05-2023 Platelet mean volume (Bld) [Entitic vol] 9.4 fL 6.2-12.0 [facility] Determination of erythrocyte mean corpuscular volume (MCV)Ordered By: Robina Gregorio on 04-05-2023 MCV (RBC) [Entitic vol] 92.4 fL 80-94 [facility] Hematocrit Auto (Bld) [Volum e fraction]Ordered By: Robina Gregorio on 04-05-2023 Hematocrit (Bld) [Volume fraction] 37.8 % 40-54 [facility] Laboratory - Chemistry and C hemistry - challengeOrdered By: Robina Gregorio on 04-05-2023 ALP [Catalytic activity/Vol] 95 U/L 45-117 [facility] ALT [Catalytic activity/Vol] 13 U/L 16-61 [facility] CO2 [Moles/Vol] 30.0 mmol/L 21.0-32.0 [facility] Globulin (S) [Mass/Vol] 3.8 g/dL 2.2-4.2 [facility] Urea nitrogen/Creatinine [Mass ratio] 24.7 mg/mg 10-20 [facility] Laboratory - Hematology and Cell countsOrdered By: Robina Gregorio on 04-05-2023 Erythrocyte distribution width (RBC) [Entitic vol] 43.5 fL 35.1-43.9 [facility] Erythrocyte distribution width (RBC) [Ratio] 12.8 % 11.6-14.6 [facility] MCH (RBC) [Entitic mass] 29.3 pg 27.0-32.0 [facility] MCHC Auto (RBC) [Mass/Vol]Or dered By: Robina Gregorio on 04-05-2023 MCHC (RBC) [Mass/Vol] 31.7 g/dL 32-36 [facility] No Panel InformationOrdered By: Robina Gregorio on 04-05-2023 Estimated GFR (MDRD) Amer 105 mL/min >60 [facility] Comment on above: GFR Calc Estimated GFR (MDRD) Non-Af Amer 87 mL/min >60 [facility] Comment on above: Non- GFR Calc Platelets bldOrdered By: Claribel Gregorio on 04-05-2023 Platelets (Bld) [#/Vol] 283 10*3/uL 150-450 [facility] Serum or plasma albumin stalin urement (mass/volume)Ordered By: Robina Gregorio on 04-05-2023 Albumin [Mass/Vol] 2.9 g/dL 3.2-5.0 [facility] Serum or plasma albumin/glob ulin mass ratioOrdered By: Robina Gregorio on 04-05-2023 Albumin/Globulin [Mass ratio] 0.8 {ratio} 0.9-2.4 [facility] Serum or plasma calcium stalin urement (mass/volume)Ordered By: Robina Gregorio on 04-05-2023 Calcium [Mass/Vol] 8.5 mg/dL 8.5-10.1 [facility] Serum or plasma creatinine m easurement (mass/volume)Ordered By: Robina Gregorio on 04-05-2023 Creatinine [Mass/Vol] 0.89 mg/dL 0.70-1.30 [facility] Comment on above: The validity of the calculated GFR & GFRAA in patients over 70 years has not been determined. Clinical correlation is essential. Serum or plasma urea nitroge n measurement (mass/volume)Ordered By: Robina Gregorio on 04-05-2023 Urea nitrogen [Mass/Vol] 22 mg/dL 7-18 [facility] Thin prep Papanicolaou smear with manual screeningOrdered By: Robina Gregorio on 04-05-2023 Thin prep Papanicolaou smear with manual screening 14 U/L 15-37 [facility] Thin prep Papanicolaou smear with manual screening 3 5-15 [facility] Basophil percentageOrdered B y: Robina Gregorio on 02-27-2023 WBC (Bld) [#/Vol] 6.7 10*3/uL 4.4-11.0 [facility] Blood erythrocytes count (nu mber/volume)Ordered By: Robina Gregorio on 02-27-2023 RBC (Bld) [#/Vol] 3.93 10*6/uL 4.6-6.2 [facility] Blood hemoglobin measurement (mass/volume)Ordered By: Robina Gregorio on 02-27-2023 Hemoglobin (Bld) [Mass/Vol] 11.8 g/dL 13.0-16.5 [facility] Blood platelet mean volumeOr dered By: Robina Gregorio on 02-27-2023 Platelet mean volume (Bld) [Entitic vol] 8.9 fL 6.2-12.0 [facility] Determination of erythrocyte mean corpuscular volume (MCV)Ordered By: Robina Gregorio on 02-27-2023 MCV (RBC) [Entitic vol] 93.1 fL 80-94 [facility] Hematocrit Auto (Bld) [Volum e fraction]Ordered By: Robina Gregorio on 02-27-2023 Hematocrit (Bld) [Volume fraction] 36.6 % 40-54 [facility] Laboratory - Hematology and Cell countsOrdered By: Robina Gregorio on 02-27-2023 Erythrocyte distribution width (RBC) [Entitic vol] 42.5 fL 35.1-43.9 [facility] Erythrocyte distribution width (RBC) [Ratio] 12.4 % 11.6-14.6 [facility] MCH (RBC) [Entitic mass] 30.0 pg 27.0-32.0 [facility] MCHC Auto (RBC) [Mass/Vol]Or dered By: Robina Gregorio on 02-27-2023 MCHC (RBC) [Mass/Vol] 32.2 g/dL 32-36 [facility] Platelets bldOrdered By: Claribel Gregorio on 02-27-2023 Platelets (Bld) [#/Vol] 282 10*3/uL 150-450 [facility] No Panel Informationon 02-22 1. Acute thrombus in the RIGHT common femoral and saphenous veins. 2. No evidence of LEFT DVT. Report Dictated on Electronically Signed By: Darius Miranda MD Electronically Signed Date/Time: 02/22/2023 3:41 PM EDT [facility] Patient Name: ARTEMIO OBRIEN : 1940 Exam Date/Time: 02/22/2023 15:46 Procedure: [facility] US LOWER EXTREMITY VENOUS DUPLEX RIGHT Ordering Provider: GREGORIO DEAN Reason For Exam: swelling and pain in right leg lower extremity CLINICAL INFORMATION: Bilateral lower extremity pain and swelling. Evaluate for DVT. Ultrasound and Doppler study of the veins of the bilateral lower extremities are provided. There are no comparison studies. FINDINGS: The RIGHT common femoral and greater saphenous veins are not compressible. This is consistent with acute thrombus. Thrombus does not propagate into the femoral vein. The right femoral and popliteal veins are compressible without evidence of DVT. Due to lower extremity edema, the veins below the right knee could not be identified/interrogated . The deep veins of the LEFT lower extremity are normally compressible without evidence of clot. There is normal augmentation. The Doppler waveforms are normal. [facility] Darius Miranda MD - 02/22/2023 Patient Name: ARTEMIO OBRIEN : 1940 Exam Date/Time: 02/22/2023 15:46 Procedure: [facility] US LOWER EXTREMITY VENOUS DUPLEX RIGHT Ordering Provider: GREGORIO DEAN Reason For Exam: swelling and pain in right leg lower extremity CLINICAL INFORMATION: Bilateral lower extremity pain and swelling. Evaluate for DVT. Ultrasound and Doppler study of the veins of the bilateral lower extremities are provided. There are no comparison studies. FINDINGS: The RIGHT common femoral and greater saphenous veins are not compressible. This is consistent with acute thrombus. Thrombus does not propagate into the femoral vein. The right femoral and popliteal veins are compressible without evidence of DVT. Due to lower extremity edema, the veins below the right knee could not be identified/interrogated . The deep veins of the LEFT lower extremity are normally compressible without evidence of clot. There is normal augmentation. The Doppler waveforms are normal. IMPRESSION: 1. Acute thrombus in the RIGHT common femoral and saphenous veins. 2. No evidence of LEFT DVT. Report Dictated on Electronically Signed By: Darius Miranda MD Electronically Signed Date/Time: 02/22/2023 3:41 PM EDT [facility] US LOWER EXTREMITY VENO US DUPLEX RIGHTon 02-22-2023 [facility] US LOWER EXTREMITY VENOUS DUPLEX RIGHT Patient Name: ARTEMIO OBRIEN : 1940 [id number] Exam Date/Time: 02/22/2023 15:46 Procedure: [facility] US LOWER EXTREMITY VENOUS DUPLEX RIGHT Ordering Provider: GREGORIO DEAN Reason For Exam: swelling and pain in right leg lower extremity CLINICAL INFORMATION: Bilateral lower extremity pain and swelling. Evaluate for DVT. Ultrasound and Doppler study of the veins of the bilateral lower extremities are provided. There are no comparison studies. FINDINGS: The RIGHT common femoral and greater saphenous veins are not compressible. This is consistent with acute thrombus. Thrombus does not propagate into the femoral vein. The right femoral and popliteal veins are compressible without evidence of DVT. Due to lower extremity edema, the veins below the right knee could not be identified/interrogated . The deep veins of the LEFT lower extremity are normally compressible without evidence of clot. There is normal augmentation. The Doppler waveforms are normal. IMPRESSION: 1. Acute thrombus in the RIGHT common femoral and saphenous veins. 2. No evidence of LEFT DVT. Report Dictated on Electronically Signed By: Darius Miranda MD Electronically Signed Date/Time: 02/22/2023 3:[address] [facility] Basophil percentageOrdered B y: Robina Gregorio on 08-31-2022 Bilirubin [Mass/Vol] 0.60 mg/dL 0.20-1.00 [facility] Comment on above: For patients on eltr ombopag therapy, use of Dimension [place] TBIL is not recommended. Chloride [Moles/Vol] 103 mmol/L 98-107 [facility] Glucose [Mass/Vol] 85 mg/dL 74-106 [facility] Potassium [Moles/Vol] 4.3 mmol/L 3.5-5.1 [facility] Protein [Mass/Vol] 7.2 g/dL 6.4-8.2 [facility] Sodium [Moles/Vol] 136 mmol/L 136-145 [facility] WBC (Bld) [#/Vol] 8.0 10*3/uL 4.4-11.0 [facility] Blood erythrocytes count (nu mber/volume)Ordered By: Robina Gregorio on 08-31-2022 RBC (Bld) [#/Vol] 4.51 10*6/uL 4.6-6.2 [facility] Blood hemoglobin measurement (mass/volume)Ordered By: Robina Gregorio on 08-31-2022 Hemoglobin (Bld) [Mass/Vol] 13.5 g/dL 13.0-16.5 [facility] Blood platelet mean volumeOr dered By: Robina Gregorio on 08-31-2022 Platelet mean volume (Bld) [Entitic vol] 9.1 fL 6.2-12.0 [facility] Determination of erythrocyte mean corpuscular volume (MCV)Ordered By: Robina Gregorio on 08-31-2022 MCV (RBC) [Entitic vol] 91.4 fL 80-94 [facility] Hematocrit Auto (Bld) [Volum e fraction]Ordered By: Robina Gregorio on 08-31-2022 Hematocrit (Bld) [Volume fraction] 41.2 % 40-54 [facility] Laboratory - Chemistry and C hemistry - challengeOrdered By: Robina Gregorio on 08-31-2022 ALP [Catalytic activity/Vol] 111 U/L 45-117 [facility] ALT [Catalytic activity/Vol] 28 U/L 16-61 [facility] CO2 [Moles/Vol] 26.0 mmol/L 21.0-32.0 [facility] Globulin (S) [Mass/Vol] 4.2 g/dL 2.2-4.2 [facility] Urea nitrogen/Creatinine [Mass ratio] 23.8 mg/mg 10-20 [facility] Laboratory - Hematology and Cell countsOrdered By: Robina Gregorio on 08-31-2022 Erythrocyte distribution width (RBC) [Entitic vol] 47.4 fL 35.1-43.9 [facility] Erythrocyte distribution width (RBC) [Ratio] 14.0 % 11.6-14.6 [facility] MCH (RBC) [Entitic mass] 29.9 pg 27.0-32.0 [facility] MCHC Auto (RBC) [Mass/Vol]Or dered By: Robina Gregorio on 08-31-2022 MCHC (RBC) [Mass/Vol] 32.8 g/dL 32-36 [facility] No Panel InformationOrdered By: Robina Gregorio on 08-31-2022 Estimated GFR (MDRD) Amer 113 mL/min >60 [facility] Comment on above: GFR Calc Estimated GFR (MDRD) Non-Af Amer 93 mL/min >60 [facility] Comment on above: Non- GFR Calc Platelets bldOrdered By: Claribel Gregorio on 08-31-2022 Platelets (Bld) [#/Vol] 177 10*3/uL 150-450 [facility] Serum or plasma albumin stalin urement (mass/volume)Ordered By: Robina Gregorio on 08-31-2022 Albumin [Mass/Vol] 3.0 g/dL 3.2-5.0 [facility] Serum or plasma albumin/glob ulin mass ratioOrdered By: Robina Gregorio on 08-31-2022 Albumin/Globulin [Mass ratio] 0.7 {ratio} 0.9-2.4 [facility] Serum or plasma calcium stalin urement (mass/volume)Ordered By: Robina Gregorio on 08-31-2022 Calcium [Mass/Vol] 9.2 mg/dL 8.5-10.1 [facility] Serum or plasma creatinine m easurement (mass/volume)Ordered By: Robina Gregorio on 08-31-2022 Creatinine [Mass/Vol] 0.84 mg/dL 0.70-1.30 [facility] Comment on above: The validity of the calculated GFR & GFRAA in patients over 70 years has not been determined. Clinical correlation is essential. Serum or plasma urea nitroge n measurement (mass/volume)Ordered By: Robina Gregorio on 08-31-2022 Urea nitrogen [Mass/Vol] 20 mg/dL 7-18 [facility] Thin prep Papanicolaou smear with manual screeningOrdered By: Robina Gregorio on 08-31-2022 Thin prep Papanicolaou smear with manual screening 23 U/L 15-37 [facility] Thin prep Papanicolaou smear with manual screening 7 5-15 [facility] Basophil percentageOrdered B y: Robina Gregorio on 06-06-2022 WBC (Bld) [#/Vol] 9.3 10*3/uL 4.4-11.0 [facility] Blood erythrocytes count (nu mber/volume)Ordered By: Robina Gregorio on 06-06-2022 RBC (Bld) [#/Vol] 4.35 10*6/uL 4.6-6.2 [facility] Blood hemoglobin measurement (mass/volume)Ordered By: Robina Gregorio on 06-06-2022 Hemoglobin (Bld) [Mass/Vol] 12.7 g/dL 13.0-16.5 [facility] Blood platelet mean volumeOr dered By: Robina Gregorio on 06-06-2022 Platelet mean volume (Bld) [Entitic vol] 8.4 fL 6.2-12.0 [facility] Determination of erythrocyte mean corpuscular volume (MCV)Ordered By: Robina Gregorio on 06-06-2022 MCV (RBC) [Entitic vol] 88.0 fL 80-94 [facility] Hematocrit Auto (Bld) [Volum e fraction]Ordered By: Robina Gregorio on 06-06-2022 Hematocrit (Bld) [Volume fraction] 38.3 % 40-54 [facility] Laboratory - Hematology and Cell countsOrdered By: Robina Gregorio on 06-06-2022 Erythrocyte distribution width (RBC) [Entitic vol] 41.2 fL 35.1-43.9 [facility] Erythrocyte distribution width (RBC) [Ratio] 12.8 % 11.6-14.6 [facility] MCH (RBC) [Entitic mass] 29.2 pg 27.0-32.0 [facility] MCHC Auto (RBC) [Mass/Vol]Or dered By: Robina Gregorio on 06-06-2022 MCHC (RBC) [Mass/Vol] 33.2 g/dL 32-36 [facility] Platelets bldOrdered By: Claribel Gregorio on 06-06-2022 Platelets (Bld) [#/Vol] 398 10*3/uL 150-450 [facility] Basophil percentageOrdered B y: Toro Byrnes on 05-18-2022 Bilirubin [Mass/Vol] 0.40 mg/dL 0.20-1.00 [facility] Comment on above: For patients on eltr ombopag therapy, use of Dimension [place] TBIL is not recommended. Chloride [Moles/Vol] 107 mmol/L 98-107 [facility] Glucose [Mass/Vol] 92 mg/dL 74-106 [facility] Potassium [Moles/Vol] 4.3 mmol/L 3.5-5.1 [facility] Protein [Mass/Vol] 7.1 g/dL 6.4-8.2 [facility] Sodium [Moles/Vol] 139 mmol/L 136-145 [facility] WBC (Bld) [#/Vol] 7.3 10*3/uL 4.4-11.0 [facility] Blood erythrocytes count (nu mber/volume)Ordered By: Toro Byrnes on 05-18-2022 RBC (Bld) [#/Vol] 4.44 10*6/uL 4.6-6.2 [facility] Blood hemoglobin measurement (mass/volume)Ordered By: Toro Byrnes on 05-18-2022 Hemoglobin (Bld) [Mass/Vol] 13.1 g/dL 13.0-16.5 [facility] Blood platelet mean volumeOr dered By: Toro Byrnes on 05-18-2022 Platelet mean volume (Bld) [Entitic vol] 9.2 fL 6.2-12.0 [facility] Determination of erythrocyte mean corpuscular volume (MCV)Ordered By: Toro Byrnes on 05-18-2022 MCV (RBC) [Entitic vol] 88.3 fL 80-94 [facility] Hematocrit Auto (Bld) [Volum e fraction]Ordered By: Toro Byrnes on 05-18-2022 Hematocrit (Bld) [Volume fraction] 39.2 % 40-54 [facility] Laboratory - Chemistry and C hemistry - challengeOrdered By: Toro Byrnes on 05-18-2022 ALP [Catalytic activity/Vol] 100 U/L 45-117 [facility] ALT [Catalytic activity/Vol] 29 U/L 16-61 [facility] CO2 [Moles/Vol] 27.0 mmol/L 21.0-32.0 [facility] Globulin (S) [Mass/Vol] 4.2 g/dL 2.2-4.2 [facility] Urea nitrogen/Creatinine [Mass ratio] 24.6 mg/mg 10-20 [facility] Laboratory - Hematology and Cell countsOrdered By: Toro Byrnes on 05-18-2022 Erythrocyte distribution width (RBC) [Entitic vol] 42.7 fL 35.1-43.9 [facility] Erythrocyte distribution width (RBC) [Ratio] 13.2 % 11.6-14.6 [facility] MCH (RBC) [Entitic mass] 29.5 pg 27.0-32.0 [facility] MCHC Auto (RBC) [Mass/Vol]Or dered By: Toro Byrnes on 05-18-2022 MCHC (RBC) [Mass/Vol] 33.4 g/dL 32-36 [facility] No Panel InformationOrdered By: Toro Byrnes on 05-18-2022 Estimated GFR (MDRD) Amer 117 mL/min >60 [facility] Comment on above: GFR Calc Estimated GFR (MDRD) Non-Af Amer 97 mL/min >60 [facility] Comment on above: Non- GFR Calc Platelets bldOrdered By: Emanuel Byrnes on 05-18-2022 Platelets (Bld) [#/Vol] 219 10*3/uL 150-450 [facility] Serum or plasma albumin stalin urement (mass/volume)Ordered By: Toro Byrnes on 05-18-2022 Albumin [Mass/Vol] 2.9 g/dL 3.2-5.0 [facility] Serum or plasma albumin/glob ulin mass ratioOrdered By: Toro Byrnes on 05-18-2022 Albumin/Globulin [Mass ratio] 0.7 {ratio} 0.9-2.4 [facility] Serum or plasma calcium stalin urement (mass/volume)Ordered By: Toro Byrnes on 05-18-2022 Calcium [Mass/Vol] 8.5 mg/dL 8.5-10.1 [facility] Serum or plasma creatinine m easurement (mass/volume)Ordered By: Toro Byrnes on 05-18-2022 Creatinine [Mass/Vol] 0.81 mg/dL 0.70-1.30 [facility] Comment on above: The validity of the calculated GFR & GFRAA in patients over 70 years has not been determined. Clinical correlation is essential. Serum or plasma urea nitroge n measurement (mass/volume)Ordered By: Toro Byrnes on 05-18-2022 Urea nitrogen [Mass/Vol] 20 mg/dL 7-18 [facility] Thin prep Papanicolaou smear with manual screeningOrdered By: Toro Byrnes on 05-18-2022 Thin prep Papanicolaou smear with manual screening 24 U/L 15-37 [facility] Thin prep Papanicolaou smear with manual screening 5 5-15 [facility] Basophil percentageOrdered B y: Toro Byrnes on 05-09-2022 Chloride [Moles/Vol] 106 mmol/L 98-107 [facility] Glucose [Mass/Vol] 93 mg/dL 74-106 [facility] Potassium [Moles/Vol] 4.6 mmol/L 3.5-5.1 [facility] Sodium [Moles/Vol] 136 mmol/L 136-145 [facility] Laboratory - Chemistry and C hemistry - challengeOrdered By: Toro Byrnes on 05-09-2022 CO2 [Moles/Vol] 26.0 mmol/L 21.0-32.0 [facility] Urea nitrogen/Creatinine [Mass ratio] 26.4 mg/mg 10-20 [facility] No Panel InformationOrdered By: Toro Byrnes on 05-09-2022 Estimated GFR (MDRD) Amer 114 mL/min >60 [facility] Comment on above: GFR Calc Estimated GFR (MDRD) Non-Af Amer 94 mL/min >60 [facility] Comment on above: Non- GFR Calc Serum or plasma calcium stalin urement (mass/volume)Ordered By: Toro Byrnes on 05-09-2022 Calcium [Mass/Vol] 8.4 mg/dL 8.5-10.1 [facility] Serum or plasma creatinine m easurement (mass/volume)Ordered By: Toro Byrnes on 05-09-2022 Creatinine [Mass/Vol] 0.83 mg/dL 0.70-1.30 [facility] Comment on above: The validity of the calculated GFR & GFRAA in patients over 70 years has not been determined. Clinical correlation is essential. Serum or plasma urea nitroge n measurement (mass/volume)Ordered By: Toro Byrnes on 05-09-2022 Urea nitrogen [Mass/Vol] 22 mg/dL 7-18 [facility] Thin prep Papanicolaou smear with manual screeningOrdered By: Toro Byrnes on 05-09-2022 Thin prep Papanicolaou smear with manual screening 4 5-15 [facility] Basophil percentageOrdered B y: Toro Byrnes on 04-25-2022 Chloride [Moles/Vol] 106 mmol/L 98-107 [facility] Glucose [Mass/Vol] 86 mg/dL 74-106 [facility] Potassium [Moles/Vol] 4.3 mmol/L 3.5-5.1 [facility] Sodium [Moles/Vol] 138 mmol/L 136-145 [facility] Laboratory - Chemistry and C hemistry - challengeOrdered By: Toro Byrnes on 04-25-2022 CO2 [Moles/Vol] 28.0 mmol/L 21.0-32.0 [facility] Urea nitrogen/Creatinine [Mass ratio] 34.7 mg/mg 10-20 [facility] No Panel InformationOrdered By: Toro Byrnes on 04-25-2022 Estimated GFR (MDRD) Amer 101 mL/min >60 [facility] Comment on above: GFR Calc Estimated GFR (MDRD) Non-Af Amer 84 mL/min >60 [facility] Comment on above: Non- GFR Calc Serum or plasma calcium stalin urement (mass/volume)Ordered By: Toro Byrnes on 04-25-2022 Calcium [Mass/Vol] 8.6 mg/dL 8.5-10.1 [facility] Serum or plasma creatinine m easurement (mass/volume)Ordered By: Toro Byrnes on 04-25-2022 Creatinine [Mass/Vol] 0.92 mg/dL 0.70-1.30 [facility] Comment on above: The validity of the calculated GFR & GFRAA in patients over 70 years has not been determined. Clinical correlation is essential. Serum or plasma urea nitroge n measurement (mass/volume)Ordered By: Toro Byrnes on 04-25-2022 Urea nitrogen [Mass/Vol] 32 mg/dL 7-18 [facility] Thin prep Papanicolaou smear with manual screeningOrdered By: Toro Byrnes on 04-25-2022 Thin prep Papanicolaou smear with manual screening 4 5-15 [facility] CARECOORDon 03-29-2022 [facility] Discharge: Pt elizabeth maddox to facility today, clarice VALENCIA with pt's KIRAN/Dinh Hoffmann/[phone] Ayaka PEDERSEN 03/29/[address] [facility] Discharge transportation arranged for 11:30 am today back to [facility] in [place]. Will inform unit staff, Ayaka VILLAGOMEZ and Dr. Peterson. Nelli from [facility] informed yesterday of discharge time today. [facility] CAREPLNon 03-29-2022 CAREPLN Problem: Sensory Perceptual Alteration as Evidenced by Goal: Patient/Family participate in treatment and discharge plans 03/29/2022 1239 by Arin Centeno RN Outcome: Adequate for Discharge 03/29/2022 1238 by Arin Centeno RN Outcome: Progressing Goal: Participates in unit activities 03/29/2022 1239 by Arin Centeno RN Outcome: Adequate for Discharge 03/29/2022 1238 by Arin Centeno RN Outcome: Progressing Problem: Ineffective Coping Goal: Identifies healthy coping skills 03/29/2022 1239 by Arin Centeno RN Outcome: Adequate for Discharge 03/29/2022 1238 by Arin Centeno RN Outcome: Progressing Normal [facility] Progress Noteon 03-29-2022 Progress Note Gave report to Drea coelho at [facility] at [address]. [facility] Progress Note Occupational Therapy Facility/Department: [facility] Occupational Therapy NAME: Artemio Obrien : 1940 Date of Service: 03/29/2022 Per chart pt is planned to discharge today at 11:30, transport already set up. Lia Jackman, OT [facility] Progress Note Patient is alert and oriented x4, calm, pleasant, talkative and cooperative. Denies SI, HI and hallucinations at this time. Compliant with medications. Voices that he is excited to be discharged today, contracts for safety. Normal [facility] Progress Note Per call from the la b, covid swab needs redone this morning because the sample was not properly labeled. Will redo test. Normal [facility] Progress Note Patient alert and oriented x 4. Pleasant and cooperative with care. Took pills whole. Patient up watching television in the day area earlier in the shift. Patient currently sleeping. Patient is able to make needs known. [facility] CARECOORDon 03-28-2022 [place] {\\rtf1\\[id number]\\a nsi \\jhgduqm0855\\ftnbj\\uc1\\ deff0 \\X0A\\{\\fonttbl{\\f0 \\fnil \\fcharset0 Wolford;}{\\f1 \\fnil SEGOE UI;}}\\X0A\\{\\colortbl ;\\bst344\\fjtan575\\blue2 55 ;\\red79\\green79\\blue79 ;\\red95\\green95\\blue95 ;\\red0\\green0\\blue0 ;\\red0\\green0\\blue0 ;}\\X0A\\{\\stylesheet{\\f0 \\fs24 Normal;}{\\cs1 Default Paragraph Font;}{\\s2\\snext0 heading 1;}{\\s3\\snext0 heading 2;}{\\s4\\snext0 heading 3;}{\\s5\\snext0 heading 4;}{\\s6\\snext0 heading 5;}{\\s7\\snext0 heading 6;}}\\X0A\\{\\*\\revtbl{Unk nown;}}\\X0A\\\\htmstf9674 0\\lpwayu95439\\\\ vcosh904\\rdlym792\\margb 720\\ozuisqt076\\footery7 20\\nogrowautofit\\deftab 720\\formshade\\dntblnsbd b\\fet4\\aendnotes\\aftnnr lc\\pgbrdrhead\\pgbrdrfoo t \\X0A\\\\sectd\\foteag42467 \\szgbff47760\\guttersxn0 \\loetnajy612\\ntobcptv03 6\\vuxdclvg271\\margbsxn7 20\\ykqzygy079\\miefrpd58 0\\sbkpage\\pgncont\\pgnde c \\X0A\\\\plain\\plain\\f0\\fs 24\\pard\\ssparaaux0\\s0\\s l24\\ltrpar\\ql\\keepn\\erica in\\f0\\fs24{\\*\\bkmkstart Care Coordination by Jennifer Avendano RN at 03/28/2022 12:10 PM}{\\*\\bkmkend Care Coordination by Jennifer Avendano RN at 03/28/2022 12:10 PM}\\plain\\f0\\fs20\\hich\\ f0\\dbch\\f0\\loch\\f0\\fs20 \\v \\X0A\\bmk\\par \\X0A\\\\trowd\\trgaph0\\las trow\\trpaddl0\\trpaddfl3 \\trpaddr0\\trpaddfr3\\trl eft0\\jbah731\\ltrrow \\X0A\\\\clvertalb\\clbrdrb \\brdrs\\\\\\ qoqpx23324 \\X0A\\\\pard\\intbl\\sspara aux0\\s0\\sl24\\ltrpar\\ql\\ keepn\\plain\\f0\\fs24{\\*\\ bkmkstart Care Coordination by Jennifer Avendano RN at 03/28/2022 12:10 PM}{\\*\\bkmkend Care Coordination by Jennifer Rosaura DelgadilloChristPhain, RN at 03/28/2022 12:10 PM}\\plain\\f0\\fs20\\hich\\ f0\\dbch\\f0\\loch\\f0\\cf2\\ fs20\\ltrch\\b \\X0A\\Care Coordination by Jennifer Rosaura DelgadilloChristPhani, RN at 03/28/2022 12:10 PM\\plain\\f0\\fs20\\hich\\f 0\\dbch\\f0\\loch\\f0\\fs20 \\cell \\X0A\\\\intbl\\row \\X0A\\\\pard\\ssparaaux0\\s 0\\ql\\plain\\f0\\fs24\\plai n\\f0\\fs20\\hich\\f0\\dbch\\ f0\\loch\\f0\\fs20\\pard\\se ct \\X0A\\\\sectd\\epvnew43612 \\juyfns80000\\guttersxn0 \\pdyjgkdq450\\syskylvh30 6\\oisbygzq439\\margbsxn7 20\\\\ufswhqg90 0\\sbknone\\pgncont\\pgnde c \\X0A\\{\\header \\X0A\\\\trowd\\trgaph0\\las trow\\trpaddl0\\trpaddfl3 \\trpaddr0\\trpaddfr3\\trl eft0\\wquo039\\ltrrow \\X0A\\\\clvertalb\\clbrdrb \\brdrs\\\\\\ fevwg58286 \\X0A\\\\pard\\intbl\\sspara aux0\\s0\\sl24\\ltrpar\\ql\\ keepn\\plain\\f0\\fs24\\erica in\\f0\\fs20\\hich\\f0\\dbch \\f0\\loch\\f0\\cf2\\fs20\\lt rch\\b Care Coordination by Jennifer Rosaura DelgadilloChristPhani, RN at 03/28/2022 12:10 PM (continued)\\plain\\f0\\fs 20\\hich\\f0\\dbch\\f0\\loch \\f0\\fs20 \\cell \\X0A\\\\intbl\\row \\X0A\\\\plain\\f0\\fs24}\\X0 A\\\\trowd\\trgaph0\\trpadd l0\\trpaddfl3\\trpaddr0\\t rpaddfr3\\trleft0\\trkeep \\X0A\\\\clvertalt\\cellx21 6 \\X0A\\\\clvertalt\\cellx37 44 \\X0A\\\\clvertalt\\cellx72 72 \\X0A\\\\clvertalt\\cellx10 800 \\X0A\\\\pard\\intbl\\sspara aux0\\s0\\sl24\\ql\\keepn\\p anup\\f0\\fs24\\plain\\f0\\f s20\\hich\\f0\\dbch\\f0\\loc h\\f0\\fs20\\cell \\X0A\\\\pard\\intbl\\sspara aux0\\s0\\li80\\ri80\\sl24\\ ql\\keepn\\plain\\f0\\fs24\\ plain\\f0\\fs20\\hich\\f0\\d bch\\f0\\loch\\f0\\cf3\\fs20 Author: \\plain\\f0\\fs20\\hich\\f0\\ dbch\\f0\\loch\\f0\\cf4\\fs2 0 Jennifer S. O'Herndon, RN\\plain\\f0\\fs20\\hich\\f 0\\dbch\\f0\\loch\\f0\\fs20\\ cell \\X0A\\\\pard\\intbl\\sspara aux0\\s0\\li80\\ri80\\sl24\\ ql\\keepn\\plain\\f0\\fs24\\ plain\\f0\\fs20\\hich\\f0\\d bch\\f0\\loch\\f0\\cf3\\fs20 Service: \\plain\\f0\\fs20\\hich\\f0\\ dbch\\f0\\loch\\f0\\cf4\\fs2 0 \\emdash\\plain\\f0\\fs20\\h ich\\f0\\dbch\\f0\\loch\\f0\\ fs20\\cell \\X0A\\\\pard\\intbl\\sspara aux0\\s0\\li80\\ri80\\sl24\\ ql\\keepn\\plain\\f0\\fs24\\ plain\\f0\\fs20\\hich\\f0\\d bch\\f0\\loch\\f0\\cf3\\fs20 Author Type: \\plain\\f0\\fs20\\hich\\f0\\ dbch\\f0\\loch\\f0\\cf4\\fs2 0 Registered Nurse\\plain\\f0\\fs20\\hic h\\f0\\dbch\\f0\\loch\\f0\\fs 20\\cell \\X0A\\\\intbl\\row \\X0A\\\\pard\\intbl\\sspara aux0\\s0\\sl24\\ql\\keepn\\p anup\\f0\\fs24\\plain\\f0\\f s20\\hich\\f0\\dbch\\f0\\loc h\\f0\\fs20\\cell \\X0A\\\\pard\\intbl\\sspara aux0\\s0\\li80\\ri80\\sl24\\ ql\\keepn\\plain\\f0\\fs24\\ plain\\f0\\fs20\\hich\\f0\\d bch\\f0\\loch\\f0\\cf3\\fs20 Filed: \\plain\\f0\\fs20\\hich\\f0\\ dbch\\f0\\loch\\f0\\cf4\\fs2 0 03/28/2022 12:11 PM\\plain\\f0\\fs20\\hich\\f 0\\dbch\\f0\\loch\\f0\\fs20\\ cell \\X0A\\\\pard\\intbl\\sspara aux0\\s0\\li80\\ri80\\sl24\\ ql\\keepn\\plain\\f0\\fs24\\ plain\\f0\\fs20\\hich\\f0\\d bch\\f0\\loch\\f0\\cf3\\fs20 Date of Service: \\plain\\f0\\fs20\\hich\\f0\\ dbch\\f0\\loch\\f0\\cf4\\fs2 0 03/28/2022 12:10 PM\\plain\\f0\\fs20\\hich\\f 0\\dbch\\f0\\loch\\f0\\fs20\\ cell \\X0A\\\\pard\\intbl\\sspara aux0\\s0\\li80\\ri80\\sl24\\ ql\\keepn\\plain\\f0\\fs24\\ plain\\f0\\fs20\\hich\\f0\\d bch\\f0\\loch\\f0\\cf3\\fs20 Status: \\plain\\f0\\fs20\\hich\\f0\\ dbch\\f0\\loch\\f0\\cf4\\fs2 0 Signed\\plain\\f0\\fs20\\hi ch\\f0\\dbch\\f0\\loch\\f0\\f s20\\cell \\X0A\\\\intbl\\row \\X0A\\\\trowd\\trgaph0\\las trow\\trpaddl0\\trpaddfl3 \\trpaddr0\\trpaddfr3\\trl eft0\\trkeep \\X0A\\\\clvertalt\\cellx21 6 \\X0A\\\\clvertalt\\cellx10 800 \\X0A\\\\pard\\intbl\\sspara aux0\\s0\\sl24\\ql\\keepn\\p anup\\f0\\fs24\\plain\\f0\\f s20\\hich\\f0\\dbch\\f0\\loc h\\f0\\fs20\\cell \\X0A\\\\pard\\intbl\\sspara aux0\\s0\\li80\\ri80\\sl24\\ ql\\keepn\\plain\\f0\\fs24\\ plain\\f0\\fs20\\hich\\f0\\d bch\\f0\\loch\\f0\\cf3\\fs20 Health And Wellness Director: \\plain\\f0\\fs20\\hich\\f0\\ dbch\\f0\\loch\\f0\\cf4\\fs2 0 Jennifer S. O'Herndon, RN (Registered Nurse)\\plain\\f0\\fs20\\hi ch\\f0\\dbch\\f0\\loch\\f0\\f s20\\cell \\X0A\\\\intbl\\row \\X0A\\\\trowd\\trgaph0\\las trow\\trpaddl0\\trpaddfl3 \\trpaddr0\\trpaddfr3\\trl eft0 \\X0A\\\\clvertalt\\cellx21 6 \\X0A\\\\clvertalt\\cellx10 800 \\X0A\\\\pard\\intbl\\sspara aux0\\s0\\sl24\\ql\\plain\\f 0\\fs24\\plain\\f0\\fs20\\hi ch\\f0\\dbch\\f0\\loch\\f0\\f s20\\cell \\X0A\\\\pard\\intbl\\sspara aux0\\s0\\li80\\ri80\\sl24\\ ql\\plain\\f0\\fs24\\pl (more content not included)... Normal [facility] {\\rtf1\\bglifu39092\\a nsi \\aeocgpo7753\\ftnbj\\uc1\\ deff0 \\X0A\\{\\fonttbl{\\f0 \\fnil \\fcharset0 Wolford;}{\\f1 \\fnil SEGOE UI;}}\\X0A\\{\\colortbl ;\\top045\\vfuhz497\\blue2 55 ;\\red79\\green79\\blue79 ;\\red95\\green95\\blue95 ;\\red0\\green0\\blue0 ;\\red0\\green0\\blue0 ;}\\X0A\\{\\stylesheet{\\f0 \\fs24 Normal;}{\\cs1 Default Paragraph Font;}{\\s2\\snext0 heading 1;}{\\s3\\snext0 heading 2;}{\\s4\\snext0 heading 3;}{\\s5\\snext0 heading 4;}{\\s6\\snext0 heading 5;}{\\s7\\snext0 heading 6;}}\\X0A\\{\\*\\revtbl{Unk nown;}}\\X0A\\\\wmglkr5769 0\\wgygor00579\\pudlz479\\ qlvav723\\ugdms175\\margb 720\\wbubmpg841\\footery7 20\\nogrowautofit\\deftab 720\\formshade\\dntblnsbd b\\fet4\\aendnotes\\aftnnr lc\\pgbrdrhead\\pgbrdrfoo t \\X0A\\\\sectd\\wqagjj48873 \\czqybl40776\\guttersxn0 \\lontvicr819\\eaxkqrvq74 6\\nodhjxbp466\\margbsxn7 20\\jloqiuq475\\vfatojr57 0\\sbkpage\\pgncont\\pgnde c \\X0A\\\\plain\\plain\\f0\\fs 24\\pard\\ssparaaux0\\s0\\s l24\\ltrpar\\ql\\keepn\\erica in\\f0\\fs24{\\*\\bkmkstart Care Coordination by Jennifer Avendano RN at 03/28/2022 9:49 AM}{\\*\\bkmkend Care Coordination by Jennifer Avendano RN at 03/28/2022 9:49 AM}\\plain\\f0\\fs20\\hich\\ f0\\dbch\\f0\\loch\\f0\\fs20 \\v \\X0A\\bmk\\par \\X0A\\\\trowd\\trgaph0\\las trow\\trpaddl0\\trpaddfl3 \\trpaddr0\\trpaddfr3\\trl eft0\\jvdr466\\ltrrow \\X0A\\\\clvertalb\\clbrdrb \\brdrs\\\\\\ islgg92089 \\X0A\\\\pard\\intbl\\sspara aux0\\s0\\sl24\\ltrpar\\ql\\ keepn\\plain\\f0\\fs24{\\*\\ bkmkstart Care Coordination by Jennifer Avendano RN at 03/28/2022 9:49 AM}{\\*\\bkmkend Care Coordination by Jennifer Avendano RN at 03/28/2022 9:49 AM}\\plain\\f0\\fs20\\hich\\ f0\\dbch\\f0\\loch\\f0\\cf2\\ fs20\\ltrch\\b \\X0A\\Care Coordination by Jennifer Avendano RN at 03/28/2022 9:49 AM\\plain\\f0\\fs20\\hich\\f 0\\dbch\\f0\\loch\\f0\\fs20 \\cell \\X0A\\\\intbl\\row \\X0A\\\\pard\\ssparaaux0\\s 0\\ql\\plain\\f0\\fs24\\plai n\\f0\\fs20\\hich\\f0\\dbch\\ f0\\loch\\f0\\fs20\\pard\\se ct \\X0A\\\\sectd\\yxedpd90533 \\smjvsl45337\\guttersxn0 \\zquqkmah469\\ekawyiwt64 6\\sognrvqu153\\margbsxn7 20\\jieoguz245\\ifqqbcc27 0\\sbknone\\pgncont\\pgnde c \\X0A\\{\\header \\X0A\\\\trowd\\trgaph0\\las trow\\trpaddl0\\trpaddfl3 \\trpaddr0\\trpaddfr3\\trl eft0\\ujfb831\\ltrrow \\X0A\\\\clvertalb\\clbrdrb \\brdrs\\\\\\ fwhxn51766 \\X0A\\\\pard\\intbl\\sspara aux0\\s0\\sl24\\ltrpar\\ql\\ keepn\\plain\\f0\\fs24\\erica in\\f0\\fs20\\hich\\f0\\dbch \\f0\\loch\\f0\\cf2\\fs20\\lt rch\\b Care Coordination by Jennifer Avendano RN at 03/28/2022 9:49 AM (continued)\\plain\\f0\\fs 20\\hich\\f0\\dbch\\f0\\loch \\f0\\fs20 \\cell \\X0A\\\\intbl\\row \\X0A\\\\plain\\f0\\fs24}\\X0 A\\\\trowd\\trgaph0\\trpadd l0\\trpaddfl3\\trpaddr0\\t rpaddfr3\\trleft0\\trkeep \\X0A\\\\clvertalt\\cellx21 6 \\X0A\\\\clvertalt\\cellx37 44 \\X0A\\\\clvertalt\\cellx72 72 \\X0A\\\\clvertalt\\cellx10 800 \\X0A\\\\pard\\intbl\\sspara aux0\\s0\\sl24\\ql\\keepn\\p anup\\f0\\fs24\\plain\\f0\\f s20\\hich\\f0\\dbch\\f0\\loc h\\f0\\fs20\\cell \\X0A\\\\pard\\intbl\\sspara aux0\\s0\\li80\\ri80\\sl24\\ ql\\keepn\\plain\\f0\\fs24\\ plain\\f0\\fs20\\hich\\f0\\d bch\\f0\\loch\\f0\\cf3\\fs20 Author: \\plain\\f0\\fs20\\hich\\f0\\ dbch\\f0\\loch\\f0\\cf4\\fs2 0 Jennifer S. O'Phani, RN\\plain\\f0\\fs20\\hich\\f 0\\dbch\\f0\\loch\\f0\\fs20\\ cell \\X0A\\\\pard\\intbl\\sspara aux0\\s0\\li80\\ri80\\sl24\\ ql\\keepn\\plain\\f0\\fs24\\ plain\\f0\\fs20\\hich\\f0\\d bch\\f0\\loch\\f0\\cf3\\fs20 Service: \\plain\\f0\\fs20\\hich\\f0\\ dbch\\f0\\loch\\f0\\cf4\\fs2 0 \\emdash\\plain\\f0\\fs20\\h ich\\f0\\dbch\\f0\\loch\\f0\\ fs20\\cell \\X0A\\\\pard\\intbl\\sspara aux0\\s0\\li80\\ri80\\sl24\\ ql\\keepn\\plain\\f0\\fs24\\ plain\\f0\\fs20\\hich\\f0\\d bch\\f0\\loch\\f0\\cf3\\fs20 Author Type: \\plain\\f0\\fs20\\hich\\f0\\ dbch\\f0\\loch\\f0\\cf4\\fs2 0 Registered Nurse\\plain\\f0\\fs20\\hic h\\f0\\dbch\\f0\\loch\\f0\\fs 20\\cell \\X0A\\\\intbl\\row \\X0A\\\\pard\\intbl\\sspara aux0\\s0\\sl24\\ql\\keepn\\p anup\\f0\\fs24\\plain\\f0\\f s20\\hich\\f0\\dbch\\f0\\loc h\\f0\\fs20\\cell \\X0A\\\\pard\\intbl\\sspara aux0\\s0\\li80\\ri80\\sl24\\ ql\\keepn\\plain\\f0\\fs24\\ plain\\f0\\fs20\\hich\\f0\\d bch\\f0\\loch\\f0\\cf3\\fs20 Filed: \\plain\\f0\\fs20\\hich\\f0\\ dbch\\f0\\loch\\f0\\cf4\\fs2 0 03/28/2022 9:51 AM\\plain\\f0\\fs20\\hich\\f 0\\dbch\\f0\\loch\\f0\\fs20\\ cell \\X0A\\\\pard\\intbl\\sspara aux0\\s0\\li80\\ri80\\sl24\\ ql\\keepn\\plain\\f0\\fs24\\ plain\\f0\\fs20\\hich\\f0\\d bch\\f0\\loch\\f0\\cf3\\fs20 Date of Service: \\plain\\f0\\fs20\\hich\\f0\\ dbch\\f0\\loch\\f0\\cf4\\fs2 0 03/28/2022 9:49 AM\\plain\\f0\\fs20\\hich\\f 0\\dbch\\f0\\loch\\f0\\fs20\\ cell \\X0A\\\\pard\\intbl\\sspara aux0\\s0\\li80\\ri80\\sl24\\ ql\\keepn\\plain\\f0\\fs24\\ plain\\f0\\fs20\\hich\\f0\\d bch\\f0\\loch\\f0\\cf3\\fs20 Status: \\plain\\f0\\fs20\\hich\\f0\\ dbch\\f0\\loch\\f0\\cf4\\fs2 0 Signed\\plain\\f0\\fs20\\hi ch\\f0\\dbch\\f0\\loch\\f0\\f s20\\cell \\X0A\\\\intbl\\row \\X0A\\\\trowd\\trgaph0\\las trow\\trpaddl0\\trpaddfl3 \\trpaddr0\\trpaddfr3\\trl eft0\\trkeep \\X0A\\\\clvertalt\\cellx21 6 \\X0A\\\\clvertalt\\cellx10 800 \\X0A\\\\pard\\intbl\\sspara aux0\\s0\\sl24\\ql\\keepn\\p anup\\f0\\fs24\\plain\\f0\\f s20\\hich\\f0\\dbch\\f0\\loc h\\f0\\fs20\\cell \\X0A\\\\pard\\intbl\\sspara aux0\\s0\\li80\\ri80\\sl24\\ ql\\keepn\\plain\\f0\\fs24\\ plain\\f0\\fs20\\hich\\f0\\d bch\\f0\\loch\\f0\\cf3\\fs20 Health And Wellness Director: \\plain\\f0\\fs20\\hich\\f0\\ dbch\\f0\\loch\\f0\\cf4\\fs2 0 Jennifer Avendano, RN (Registered Nurse)\\plain\\f0\\fs20\\hi ch\\f0\\dbch\\f0\\loch\\f0\\f s20\\cell \\X0A\\\\intbl\\row \\X0A\\\\trowd\\trgaph0\\las trow\\trpaddl0\\trpaddfl3 \\trpaddr0\\trpaddfr3\\trl eft0 \\X0A\\\\clvertalt\\cellx21 6 \\X0A\\\\clvertalt\\cellx10 800 \\X0A\\\\pard\\intbl\\sspara aux0\\s0\\sl24\\ql\\plain\\f 0\\fs24\\plain\\f0\\fs20\\hi ch\\f0\\dbch\\f0\\loch\\f0\\f s20\\cell \\X0A\\\\pard\\intbl\\sspara aux0\\s0\\li80\\ri80\\sl24\\ ql\\plain\\f0\\fs24\\plain\\ f0\\f (more content not included)... Normal [facility] 03-28-2022 CAREPLN {\\rtf1\\apnric92548\\a nsi \\xsvbofd1536\\ftnbj\\uc1\\ deff0 \\X0A\\{\\fonttbl{\\f0 \\fnil \\fcharset0 Wolford;}{\\f1 \\fnil SEGOE UI;}}\\X0A\\{\\colortbl ;\\fnf839\\qmsaf866\\blue2 55 ;\\red79\\green79\\blue79 ;\\red95\\green95\\blue95 ;\\red0\\green0\\blue0 ;\\red0\\green0\\blue0 ;}\\X0A\\{\\stylesheet{\\f0 \\fs24 Normal;}{\\cs1 Default Paragraph Font;}{\\s2\\snext0 heading 1;}{\\s3\\snext0 heading 2;}{\\s4\\snext0 heading 3;}{\\s5\\snext0 heading 4;}{\\s6\\snext0 heading 5;}{\\s7\\snext0 heading 6;}}\\X0A\\{\\*\\revtbl{Unk nown;}}\\X0A\\\\wnkdhs8468 0\\sdezdf09224\\yaiqf388\\ sffuv713\\ymhxj995\\margb 720\\ehnfunh015\\footery7 20\\nogrowautofit\\deftab 720\\formshade\\dntblnsbd b\\fet4\\aendnotes\\aftnnr lc\\pgbrdrhead\\pgbrdrfoo t \\X0A\\\\sectd\\yzjvtk45275 \\dnkace37962\\guttersxn0 \\lvxceomg950\\ 6\\ougpgnij131\\margbsxn7 20\\jxyzcrg898\\jnwyuar32 0\\sbkpage\\pgncont\\pgnde c \\X0A\\\\plain\\plain\\f0\\fs 24\\pard\\ssparaaux0\\s0\\s l24\\ltrpar\\ql\\keepn\\erica in\\f0\\fs24{\\*\\bkmkstart Care Plan by Savannah Mccormack, RD at 03/28/2022 5:52 PM}{\\*\\bkmkend Care Plan by Savannah Mccormack RD at 03/28/2022 5:52 PM}\\plain\\f0\\fs20\\hich\\ f0\\dbch\\f0\\loch\\f0\\fs20 \\v \\X0A\\bmk\\par \\X0A\\\\trowd\\trgaph0\\las trow\\trpaddl0\\trpaddfl3 \\trpaddr0\\trpaddfr3\\trl eft0\\jrey102\\ltrrow \\X0A\\\\clvertalb\\clbrdrb \\brdrs\\\\\\ qyogh51878 \\X0A\\\\pard\\intbl\\sspara aux0\\s0\\sl24\\ltrpar\\ql\\ keepn\\plain\\f0\\fs24{\\*\\ bkmkstart Care Plan by Savannah Mccormack RD at 03/28/2022 5:52 PM}{\\*\\bkmkend Care Plan by Savannahchristopher Mccormack RD at 03/28/2022 5:52 PM}\\plain\\f0\\fs20\\hich\\ f0\\dbch\\f0\\loch\\f0\\cf2\\ fs20\\ltrch\\b Care \\X0A\\Plan by Savannah Mccormack RD at 03/28/2022 5:52 PM\\plain\\f0\\fs20\\hich\\f 0\\dbch\\f0\\loch\\f0\\fs20 \\cell \\X0A\\\\intbl\\row \\X0A\\\\pard\\ssparaaux0\\s 0\\ql\\plain\\f0\\fs24\\plai n\\f0\\fs20\\hich\\f0\\dbch\\ f0\\loch\\f0\\fs20\\pard\\se ct \\X0A\\\\sectd\\oxnlkf50385 \\tgkeag21071\\guttersxn0 \\fpblqpdu847\\krbgucdj21 6\\twnbibhd287\\margbsxn7 20\\dkhakau794\\ovjmbnn35 0\\sbknone\\pgncont\\pgnde c \\X0A\\{\\header \\X0A\\\\trowd\\trgaph0\\las trow\\trpaddl0\\trpaddfl3 \\trpaddr0\\trpaddfr3\\trl eft0\\sfxa329\\ltrrow \\X0A\\\\clvertalb\\clbrdrb \\brdrs\\\\\\ grstx66941 \\X0A\\\\pard\\intbl\\sspara aux0\\s0\\sl24\\ltrpar\\ql\\ keepn\\plain\\f0\\fs24\\erica in\\f0\\fs20\\hich\\f0\\dbch \\f0\\loch\\f0\\cf2\\fs20\\lt rch\\b Care Plan by Savannahchristopher Mccormack RD at 03/28/2022 5:52 PM (continued)\\plain\\f0\\fs 20\\hich\\f0\\dbch\\f0\\loch \\f0\\fs20 \\cell \\X0A\\\\intbl\\row \\X0A\\\\plain\\f0\\fs24}\\X0 A\\\\trowd\\trgaph0\\trpadd l0\\trpaddfl3\\trpaddr0\\t rpaddfr3\\trleft0\\trkeep \\X0A\\\\clvertalt\\cellx21 6 \\X0A\\\\clvertalt\\cellx37 44 \\X0A\\\\clvertalt\\cellx72 72 \\X0A\\\\clvertalt\\cellx10 800 \\X0A\\\\pard\\intbl\\sspara aux0\\s0\\sl24\\ql\\keepn\\p anup\\f0\\fs24\\plain\\f0\\f s20\\hich\\f0\\dbch\\f0\\loc h\\f0\\fs20\\cell \\X0A\\\\pard\\intbl\\sspara aux0\\s0\\li80\\ri80\\sl24\\ ql\\keepn\\plain\\f0\\fs24\\ plain\\f0\\fs20\\hich\\f0\\d bch\\f0\\loch\\f0\\cf3\\fs20 Author: \\plain\\f0\\fs20\\hich\\f0\\ dbch\\f0\\loch\\f0\\cf4\\fs2 0 Savannah Easton, RD\\plain\\f0\\fs20\\hich\\f 0\\dbch\\f0\\loch\\f0\\fs20\\ cell \\X0A\\\\pard\\intbl\\sspara aux0\\s0\\li80\\ri80\\sl24\\ ql\\keepn\\plain\\f0\\fs24\\ plain\\f0\\fs20\\hich\\f0\\d bch\\f0\\loch\\f0\\cf3\\fs20 Service: \\plain\\f0\\fs20\\hich\\f0\\ dbch\\f0\\loch\\f0\\cf4\\fs2 0 \\emdash\\plain\\f0\\fs20\\h ich\\f0\\dbch\\f0\\loch\\f0\\ fs20\\cell \\X0A\\\\pard\\intbl\\sspara aux0\\s0\\li80\\ri80\\sl24\\ ql\\keepn\\plain\\f0\\fs24\\ plain\\f0\\fs20\\hich\\f0\\d bch\\f0\\loch\\f0\\cf3\\fs20 Author Type: \\plain\\f0\\fs20\\hich\\f0\\ dbch\\f0\\loch\\f0\\cf4\\fs2 0 Registered Dietitian\\plain\\f0\\fs20 \\hich\\f0\\dbch\\f0\\loch\\f 0\\fs20\\cell \\X0A\\\\intbl\\row \\X0A\\\\pard\\intbl\\sspara aux0\\s0\\sl24\\ql\\keepn\\p anup\\f0\\fs24\\plain\\f0\\f s20\\hich\\f0\\dbch\\f0\\loc h\\f0\\fs20\\cell \\X0A\\\\pard\\intbl\\sspara aux0\\s0\\li80\\ri80\\sl24\\ ql\\keepn\\plain\\f0\\fs24\\ plain\\f0\\fs20\\hich\\f0\\d bch\\f0\\loch\\f0\\cf3\\fs20 Filed: \\plain\\f0\\fs20\\hich\\f0\\ dbch\\f0\\loch\\f0\\cf4\\fs2 0 03/28/2022 5:52 PM\\plain\\f0\\fs20\\hich\\f 0\\dbch\\f0\\loch\\f0\\fs20\\ cell \\X0A\\\\pard\\intbl\\sspara aux0\\s0\\li80\\ri80\\sl24\\ ql\\keepn\\plain\\f0\\fs24\\ plain\\f0\\fs20\\hich\\f0\\d bch\\f0\\loch\\f0\\cf3\\fs20 Date of Service: \\plain\\f0\\fs20\\hich\\f0\\ dbch\\f0\\loch\\f0\\cf4\\fs2 0 03/28/2022 5:52 PM\\plain\\f0\\fs20\\hich\\f 0\\dbch\\f0\\loch\\f0\\fs20\\ cell \\X0A\\\\pard\\intbl\\sspara aux0\\s0\\li80\\ri80\\sl24\\ ql\\keepn\\plain\\f0\\fs24\\ plain\\f0\\fs20\\hich\\f0\\d bch\\f0\\loch\\f0\\cf3\\fs20 Status: \\plain\\f0\\fs20\\hich\\f0\\ dbch\\f0\\loch\\f0\\cf4\\fs2 0 Signed\\plain\\f0\\fs20\\hi ch\\f0\\dbch\\f0\\loch\\f0\\f s20\\cell \\X0A\\\\intbl\\row \\X0A\\\\trowd\\trgaph0\\las trow\\trpaddl0\\trpaddfl3 \\trpaddr0\\trpaddfr3\\trl eft0\\trkeep \\X0A\\\\clvertalt\\cellx21 6 \\X0A\\\\clvertalt\\cellx10 800 \\X0A\\\\pard\\intbl\\sspara aux0\\s0\\sl24\\ql\\keepn\\p anup\\f0\\fs24\\plain\\f0\\f s20\\hich\\f0\\dbch\\f0\\loc h\\f0\\fs20\\cell \\X0A\\\\pard\\intbl\\sspara aux0\\s0\\li80\\ri80\\sl24\\ ql\\keepn\\plain\\f0\\fs24\\ plain\\f0\\fs20\\hich\\f0\\d bch\\f0\\loch\\f0\\cf3\\fs20 Health And Wellness Director: \\plain\\f0\\fs20\\hich\\f0\\ dbch\\f0\\loch\\f0\\cf4\\fs2 0 Savannahchristopher Mccormack, RD (Registered Dietitian)\\plain\\f0\\fs2 0\\hich\\f0\\dbch\\f0\\loch\\ f0\\fs20\\cell \\X0A\\\\intbl\\row \\X0A\\\\trowd\\trgaph0\\las trow\\trpaddl0\\trpaddfl3 \\trpaddr0\\trpaddfr3\\trl eft0 \\X0A\\\\clvertalt\\cellx21 6 \\X0A\\\\clvertalt\\cellx10 800 \\X0A\\\\pard\\intbl\\sspara aux0\\s0\\sl24\\ql\\plain\\f 0\\fs24\\plain\\f0\\fs20\\hi ch\\f0\\dbch\\f0\\loch\\f0\\f s20\\cell \\X0A\\\\pard\\intbl\\sspara aux0\\s0\\li80\\ri80\\sl24\\ ql\\plain\\f0\\fs24\\plain\\ f0\\fs20\\hich\\f0\\dbch\\f0 \\loch\\f0\\fs20\\cell \\X0A\\\\intbl\\row \\X0A\\\\pard\\plain\\f0\\fs2 4\\p (more content not included)... Normal [facility] Progress Noteon 03-28-2022 Progress Note {\\rtf1\\cfxvfk27509\\a nsi \\qvgyyvr2391\\ftnbj\\uc1\\ deff0 \\X0A\\{\\fonttbl{\\f0 \\fnil \\fcharset0 Wolford;}{\\f1 \\fnil Wolford;}{\\f2 \\fnil Symbol;}{\\f3 \\fnil SEGOE UI;}{\\f4 \\fnil Wingdings;}}\\X0A\\{\\colo rtbl ;\\lrc389\\\\blue2 55 ;\\red79\\green79\\blue79 ;\\red95\\green95\\blue95 ;\\red0\\green0\\blue0 ;\\red0\\green0\\blue0 ;\\ijz246\\urlef189\\blue1 92 ;\\jdl604\\green0\\blue0 ;}\\X0A\\{\\stylesheet{\\f0 \\fs24 Normal;}{\\cs1 Default Paragraph Font;}{\\s2\\snext0 heading 1;}{\\s3\\snext0 heading 2;}{\\s4\\snext0 heading 3;}{\\s5\\snext0 heading 4;}{\\s6\\snext0 heading 5;}{\\s7\\snext0 heading 6;}}\\X0A\\{\\*\\revtbl{Unk nown;}}\\X0A\\{\\*\\listtab le \\X0A\\{\\list\\listtemplat keturah-1 \\X0A\\{\\listlevel\\leveln fc0\\levelfollow0\\levels tartat1{\\leveltext \\'02\\'00.}{\\levelnumber s \\'01}\\fs22}\\X0A\\{\\listl evel\\levelnfc0\\levelfol low0\\levelstartat1{\\lev eltext \\'02\\'01.}{\\levelnumber s \\'01}\\fs22}\\X0A\\{\\listl evel\\levelnfc0\\levelfol low0\\levelstartat1{\\lev eltext \\'02\\'02.}{\\levelnumber s \\'01}\\fs22}\\X0A\\{\\listl evel\\levelnfc0\\levelfol low0\\levelstartat1{\\lev eltext \\'02\\'03.}{\\levelnumber s \\'01}\\fs22}\\X0A\\{\\listl evel\\levelnfc0\\levelfol low0\\levelstartat1{\\lev eltext \\'02\\'04.}{\\levelnumber s \\'01}\\fs22}\\X0A\\{\\listl evel\\levelnfc0\\levelfol low0\\levelstartat1{\\lev eltext \\'02\\'05.}{\\levelnumber s \\'01}\\fs22}\\X0A\\{\\listl evel\\levelnfc0\\levelfol low0\\levelstartat1{\\lev eltext \\'02\\'06.}{\\levelnumber s \\'01}\\fs22}\\X0A\\{\\listl evel\\levelnfc0\\levelfol low0\\levelstartat1{\\lev eltext \\'02\\'07.}{\\levelnumber s \\'01}\\fs22}\\X0A\\{\\listl evel\\levelnfc0\\levelfol low0\\levelstartat1{\\lev eltext \\'02\\'08.}{\\levelnumber s \\'01}\\fs22}\\X0A\\{\\listn christophe ;}\\listid4 \\X0A\\}\\X0A\\{\\list\\listt emplateid-1 \\X0A\\{\\listlevel\\leveln fc23\\levelfollow0\\level startat1{\\leveltext \\'01\\'b7}{\\levelnumbers }\\f2\\fs22}\\X0A\\{\\listle reji\\nekzbccn82\\levelfol low0\\levelstartat1{\\lev eltext \\'\\'b7}{\\levelnumbers }\\f2\\fs22}\\X0A\\{\\listle reji\\lpmfiywn72\\levelfol low0\\levelstartat1{\\lev eltext \\'\\'b7}{\\levelnumbers }\\f2\\fs22}\\X0A\\{\\listle reji\\qhbkywjw06\\levelfol low0\\levelstartat1{\\lev eltext \\'\\'b7}{\\levelnumbers }\\f2\\fs22}\\X0A\\{\\listle reji\\nuaogxdu72\\levelfol low0\\levelstartat1{\\lev eltext \\'\\'b7}{\\levelnumbers }\\f2\\fs22}\\X0A\\{\\listle reji\\ntwjypfb22\\levelfol low0\\levelstartat1{\\lev eltext \\'\\'b7}{\\levelnumbers }\\f2\\fs22}\\X0A\\{\\listle reji\\kmiebsjc32\\levelfol low0\\levelstartat1{\\lev eltext \\'\\'b7}{\\levelnumbers }\\f2\\fs22}\\X0A\\{\\listle reji\\abdfsrje59\\levelfol low0\\levelstartat1{\\lev eltext \\'\\'b7}{\\levelnumbers }\\f2\\fs22}\\X0A\\{\\listle reji\\ayjrmwkr91\\levelfol low0\\levelstartat1{\\lev eltext \\'01\\'b7}{\\levelnumbers }\\f2\\fs22}\\X0A\\{\\listna me ;}\\listid1 \\X0A\\}\\X0A\\{\\list\\listt emplateid-1 \\X0A\\{\\listlevel\\leveln fc23\\levelfollow0\\level startat1{\\leveltext \\'\\'b7}{\\levelnumbers }\\f2\\fs22}\\X0A\\{\\listle reji\\keqjlajg41\\levelfol low0\\levelstartat1{\\lev eltext \\'\\'b7}{\\levelnumbers }\\f2\\fs22}\\X0A\\{\\listle reji\\igepzxcd70\\levelfol low0\\levelstartat1{\\lev eltext \\'\\'b7}{\\levelnumbers }\\f2\\fs22}\\X0A\\{\\listle reji\\\\levelfol low0\\levelstartat1{\\lev eltext \\'\\'b7}{\\levelnumbers }\\f2\\fs22}\\X0A\\{\\listle reji\\xwiqvhoy04\\levelfol low0\\levelstartat1{\\lev eltext \\'\\'b7}{\\levelnumbers }\\f2\\fs22}\\X0A\\{\\listle reji\\dibexkdy33\\levelfol low0\\levelstartat1{\\lev eltext \\'\\'b7}{\\levelnumbers }\\f2\\fs22}\\X0A\\{\\listle reji\\tgxyjfpn13\\levelfol low0\\levelstartat1{\\lev eltext \\'\\'b7}{\\levelnumbers }\\f2\\fs22}\\X0A\\{\\listle reji\\\\levelfol low0\\levelstartat1{\\lev eltext \\'01\\'b7}{\\levelnumbers }\\f2\\fs22}\\X0A\\{\\listle reji\\ofzwjhps28\\levelfol low0\\levelstartat1{\\lev eltext \\'01\\'b7}{\\levelnumbers }\\f2\\fs22}\\X0A\\{\\listna me ;}\\listid2 \\X0A\\}\\X0A\\{\\list\\listt emplateid-1 \\X0A\\{\\listlevel\\leveln fc23\\levelfollow0\\level startat1{\\leveltext \\'\\'b7}{\\levelnumbers }\\f2\\fs22}\\X0A\\{\\listle reji\\iqvnhfrt55\\levelfol low0\\levelstartat1{\\lev eltext \\'\\'b7}{\\levelnumbers }\\f2\\fs22}\\X0A\\{\\listle reji\\gfiztyaw60\\levelfol low0\\levelstartat1{\\lev eltext \\'\\'b7}{\\levelnumbers }\\f2\\fs22}\\X0A\\{\\listle reji\\sqozimkb51\\levelfol low0\\levelstartat1{\\lev eltext \\'\\'b7}{\\levelnumbers }\\f2\\fs22}\\X0A\\{\\listle reji\\xmiiaopu22\\levelfol low0\\levelstartat1{\\lev eltext \\'\\'b7}{\\levelnumbers }\\f2\\fs22}\\X0A\\{\\listle reji\\lebxtwls38\\levelfol low0\\levelstartat1{\\lev eltext \\'\\'b7}{\\levelnumbers }\\f2\\fs22}\\X0A\\{\\listle reji\\\\levelfol low0\\levelstartat1{\\lev eltext \\'\\'b7}{\\levelnumbers }\\f2\\fs22}\\X0A\\{\\listle reji\\\\levelfol low0\\levelstartat1{\\lev eltext \\'\\'b7}{\\levelnumbers }\\f2\\fs22}\\X0A\\{\\listle reji\\yajburdw28\\levelfol low0\\levelstartat1{\\lev eltext \\'01\\'b7}{\\levelnumbers }\\f2\\fs22}\\X0A\\{\\listna me ;}\\listid3 \\X0A\\}\\X0A\\}\\X0A\\{\\*\\li stoverridetable \\X0A\\{\\listoverride\\lis tid4\\listoverridecount0 \\ls1}\\X0A\\{\\listoverrid e\\listid1\\listoverridec ount0\\ls2}\\X0A\\{\\listov erride\\listid2\\listover ridecount0\\ls3}\\X0A\\{\\l istoverride\\listid3\\lis toverridecount0\\ls4}\\X0 A\\}\\X0A\\\\lqvywp38544\\pa wdiw44002\\\\kenia r576\\zmxun836\\vmdbu320\\ oxhqurm630\\dzjeqvz389\\n ogrowautofit\\yahqko034\\ formshade\\dntblnsbdb\\fe t4\\aendnotes\\aftnnrlc\\p gbrdrhead\\pgbrdrfoot \\X0A\\\\sectd\\jzhyxa50410 \\zrrerh93458\\guttersxn0 \\ajidwutl014\\goyitmqp52 6\\ftfhlwer637\\margbsxn7 20\\yqiupcr589\\welkowh75 0\\sbkpage\\pgncont\\pgnde c \\X0A\\ (more content not included)... Normal [facility] Progress Note {\\rtf1\\qqbaab29879\\a nsi \\bwxpvcv6020\\ftnbj\\uc1\\ deff0 \\X0A\\{\\fonttbl{\\f0 \\fnil \\fcharset0 Wolford;}{\\f1 \\fnil SEGOE UI;}}\\X0A\\{\\colortbl ;\\eou058\\rwugg389\\blue2 55 ;\\red79\\green79\\blue79 ;\\red95\\green95\\blue95 ;\\red0\\green0\\blue0 ;\\red0\\green0\\blue0 ;}\\X0A\\{\\stylesheet{\\f0 \\fs24 Normal;}{\\cs1 Default Paragraph Font;}{\\s2\\snext0 heading 1;}{\\s3\\snext0 heading 2;}{\\s4\\snext0 heading 3;}{\\s5\\snext0 heading 4;}{\\s6\\snext0 heading 5;}{\\s7\\snext0 heading 6;}}\\X0A\\{\\*\\revtbl{Unk nown;}}\\X0A\\\\gxrcot1231 0\\znxsrd01426\\heqrc674\\ yxiqk691\\mxuqb791\\margb 720\\jugmmwz697\\footery7 20\\nogrowautofit\\deftab 720\\formshade\\dntblnsbd b\\fet4\\aendnotes\\aftnnr lc\\pgbrdrhead\\pgbrdrfoo t \\X0A\\\\sectd\\mvevwm26846 \\wfhuhf55055\\guttersxn0 \\tfcapvmr545\\ 6\\uoemwyck807\\margbsxn7 20\\pnqcitf612\\ymyvkpo41 0\\sbkpage\\pgncont\\pgnde c \\X0A\\\\plain\\plain\\f0\\fs 24\\pard\\ssparaaux0\\s0\\s l24\\ltrpar\\ql\\keepn\\erica in\\f0\\fs24{\\*\\bkmkstart Progress Notes by Amanda Reyes RN at 03/28/2022 4:53 PM}{\\*\\bkmkend Progress Notes by Amanda Reyes RN at 03/28/2022 4:53 PM}\\plain\\f0\\fs20\\hich\\ f0\\dbch\\f0\\loch\\f0\\fs20 \\v \\X0A\\bmk\\par \\X0A\\\\trowd\\trgaph0\\las trow\\trpaddl0\\trpaddfl3 \\trpaddr0\\trpaddfr3\\trl eft0\\dgae934\\ltrrow \\X0A\\\\clvertalb\\clbrdrb \\brdrs\\\\\\ zqexa33696 \\X0A\\\\pard\\intbl\\sspara aux0\\s0\\sl24\\ltrpar\\ql\\ keepn\\plain\\f0\\fs24{\\*\\ bkmkstart Progress Notes by Amanda Reyes RN at 03/28/2022 4:53 PM}{\\*\\bkmkend Progress Notes by Amanda Reyes RN at 03/28/2022 4:53 PM}\\plain\\f0\\fs20\\hich\\ f0\\dbch\\f0\\loch\\f0\\cf2\\ fs20\\ltrch\\b \\X0A\\Progress Notes by Amanda Reyes CELENA at 03/28/2022 4:53 PM\\plain\\f0\\fs20\\hich\\f 0\\dbch\\f0\\loch\\f0\\fs20 \\cell \\X0A\\\\intbl\\row \\X0A\\\\pard\\ssparaaux0\\s 0\\ql\\plain\\f0\\fs24\\plai n\\f0\\fs20\\hich\\f0\\dbch\\ f0\\loch\\f0\\fs20\\pard\\se ct \\X0A\\\\sectd\\tnjlkd28781 \\qvgybw05582\\guttersxn0 \\vtrrazqv833\\lzdcgiod17 6\\amhfwlts494\\margbsxn7 20\\dcyofue693\\zjjddiw09 0\\sbknone\\pgncont\\pgnde c \\X0A\\{\\header \\X0A\\\\trowd\\trgaph0\\las trow\\trpaddl0\\trpaddfl3 \\trpaddr0\\trpaddfr3\\trl eft0\\ajqy002\\ltrrow \\X0A\\\\clvertalb\\clbrdrb \\brdrs\\\\\\ kqjiq93986 \\X0A\\\\pard\\intbl\\sspara aux0\\s0\\sl24\\ltrpar\\ql\\ keepn\\plain\\f0\\fs24\\erica in\\f0\\fs20\\hich\\f0\\dbch \\f0\\loch\\f0\\cf2\\fs20\\lt rch\\b Progress Notes by Amanda Reyes CELENA at 03/28/2022 4:53 PM (continued)\\plain\\f0\\fs 20\\hich\\f0\\dbch\\f0\\loch \\f0\\fs20 \\cell \\X0A\\\\intbl\\row \\X0A\\\\plain\\f0\\fs24}\\X0 A\\\\trowd\\trgaph0\\trpadd l0\\trpaddfl3\\trpaddr0\\t rpaddfr3\\trleft0\\trkeep \\X0A\\\\clvertalt\\cellx21 6 \\X0A\\\\clvertalt\\cellx37 44 \\X0A\\\\clvertalt\\cellx72 72 \\X0A\\\\clvertalt\\cellx10 800 \\X0A\\\\pard\\intbl\\sspara aux0\\s0\\sl24\\ql\\keepn\\p anup\\f0\\fs24\\plain\\f0\\f s20\\hich\\f0\\dbch\\f0\\loc h\\f0\\fs20\\cell \\X0A\\\\pard\\intbl\\sspara aux0\\s0\\li80\\ri80\\sl24\\ ql\\keepn\\plain\\f0\\fs24\\ plain\\f0\\fs20\\hich\\f0\\d bch\\f0\\loch\\f0\\cf3\\fs20 Author: \\plain\\f0\\fs20\\hich\\f0\\ dbch\\f0\\loch\\f0\\cf4\\fs2 0 Amanda D Amy, RN\\plain\\f0\\fs20\\hich\\f 0\\dbch\\f0\\loch\\f0\\fs20\\ cell \\X0A\\\\pard\\intbl\\sspara aux0\\s0\\li80\\ri80\\sl24\\ ql\\keepn\\plain\\f0\\fs24\\ plain\\f0\\fs20\\hich\\f0\\d bch\\f0\\loch\\f0\\cf3\\fs20 Service: \\plain\\f0\\fs20\\hich\\f0\\ dbch\\f0\\loch\\f0\\cf4\\fs2 0 \\emdash\\plain\\f0\\fs20\\h ich\\f0\\dbch\\f0\\loch\\f0\\ fs20\\cell \\X0A\\\\pard\\intbl\\sspara aux0\\s0\\li80\\ri80\\sl24\\ ql\\keepn\\plain\\f0\\fs24\\ plain\\f0\\fs20\\hich\\f0\\d bch\\f0\\loch\\f0\\cf3\\fs20 Author Type: \\plain\\f0\\fs20\\hich\\f0\\ dbch\\f0\\loch\\f0\\cf4\\fs2 0 Registered Nurse\\plain\\f0\\fs20\\hic h\\f0\\dbch\\f0\\loch\\f0\\fs 20\\cell \\X0A\\\\intbl\\row \\X0A\\\\pard\\intbl\\sspara aux0\\s0\\sl24\\ql\\keepn\\p anup\\f0\\fs24\\plain\\f0\\f s20\\hich\\f0\\dbch\\f0\\loc h\\f0\\fs20\\cell \\X0A\\\\pard\\intbl\\sspara aux0\\s0\\li80\\ri80\\sl24\\ ql\\keepn\\plain\\f0\\fs24\\ plain\\f0\\fs20\\hich\\f0\\d bch\\f0\\loch\\f0\\cf3\\fs20 Filed: \\plain\\f0\\fs20\\hich\\f0\\ dbch\\f0\\loch\\f0\\cf4\\fs2 0 03/28/2022 4:56 PM\\plain\\f0\\fs20\\hich\\f 0\\dbch\\f0\\loch\\f0\\fs20\\ cell \\X0A\\\\pard\\intbl\\sspara aux0\\s0\\li80\\ri80\\sl24\\ ql\\keepn\\plain\\f0\\fs24\\ plain\\f0\\fs20\\hich\\f0\\d bch\\f0\\loch\\f0\\cf3\\fs20 Date of Service: \\plain\\f0\\fs20\\hich\\f0\\ dbch\\f0\\loch\\f0\\cf4\\fs2 0 03/28/2022 4:53 PM\\plain\\f0\\fs20\\hich\\f 0\\dbch\\f0\\loch\\f0\\fs20\\ cell \\X0A\\\\pard\\intbl\\sspara aux0\\s0\\li80\\ri80\\sl24\\ ql\\keepn\\plain\\f0\\fs24\\ plain\\f0\\fs20\\hich\\f0\\d bch\\f0\\loch\\f0\\cf3\\fs20 Status: \\plain\\f0\\fs20\\hich\\f0\\ dbch\\f0\\loch\\f0\\cf4\\fs2 0 Signed\\plain\\f0\\fs20\\hi ch\\f0\\dbch\\f0\\loch\\f0\\f s20\\cell \\X0A\\\\intbl\\row \\X0A\\\\trowd\\trgaph0\\las trow\\trpaddl0\\trpaddfl3 \\trpaddr0\\trpaddfr3\\trl eft0\\trkeep \\X0A\\\\clvertalt\\cellx21 6 \\X0A\\\\clvertalt\\cellx10 800 \\X0A\\\\pard\\intbl\\sspara aux0\\s0\\sl24\\ql\\keepn\\p anup\\f0\\fs24\\plain\\f0\\f s20\\hich\\f0\\dbch\\f0\\loc h\\f0\\fs20\\cell \\X0A\\\\pard\\intbl\\sspara aux0\\s0\\li80\\ri80\\sl24\\ ql\\keepn\\plain\\f0\\fs24\\ plain\\f0\\fs20\\hich\\f0\\d bch\\f0\\loch\\f0\\cf3\\fs20 Health And Wellness Director: \\plain\\f0\\fs20\\hich\\f0\\ dbch\\f0\\loch\\f0\\cf4\\fs2 0 Amanda D CELENA Reyes (Registered Nurse)\\plain\\f0\\fs20\\hi ch\\f0\\dbch\\f0\\loch\\f0\\f s20\\cell \\X0A\\\\intbl\\row \\X0A\\\\trowd\\trgaph0\\las trow\\trpaddl0\\trpaddfl3 \\trpaddr0\\trpaddfr3\\trl eft0 \\X0A\\\\clvertalt\\cellx21 6 \\X0A\\\\clvertalt\\cellx10 800 \\X0A\\\\pard\\intbl\\sspara aux0\\s0\\sl24\\ql\\plain\\f 0\\fs24\\plain\\f0\\fs20\\hi ch\\f0\\dbch\\f0\\loch\\f0\\f s20\\cell \\X0A\\\\pard\\intbl\\sspara aux0\\s0\\li80\\ri80\\sl24\\ ql\\plain\\f0\\fs24\\plain\\ f0\\fs20\\hich\\f0\\dbch\\f0 \\loch\\f0\\fs20\\cell \\X0A (more content not included)... Normal [facility] Progress Note {\\rtf1\\dumalr52744\\a nsi \\fhnxmwi8898\\ftnbj\\uc1\\ deff0 \\X0A\\{\\fonttbl{\\f0 \\fnil \\fcharset0 Wolford;}{\\f1 \\fnil Wolford;}{\\f2 \\fnil SEGOE UI;}}\\X0A\\{\\colortbl ;\\aix087\\rlpgy543\\blue2 55 ;\\red79\\green79\\blue79 ;\\red95\\green95\\blue95 ;\\red0\\green0\\blue0 ;\\red0\\green0\\blue0 ;}\\X0A\\{\\stylesheet{\\f0 \\fs24 Normal;}{\\cs1 Default Paragraph Font;}{\\s2\\snext0 heading 1;}{\\s3\\snext0 heading 2;}{\\s4\\snext0 heading 3;}{\\s5\\snext0 heading 4;}{\\s6\\snext0 heading 5;}{\\s7\\snext0 heading 6;}}\\X0A\\{\\*\\revtbl{Unk nown;}}\\X0A\\\\weehkx8577 0\\njlnxe42539\\\\ vuagw640\\jyugz263\\margb 720\\wyfuinu844\\footery7 20\\nogrowautofit\\deftab 720\\formshade\\dntblnsbd b\\fet4\\aendnotes\\aftnnr lc\\pgbrdrhead\\pgbrdrfoo t \\X0A\\\\sectd\\xeujwj22871 \\dloobg28001\\guttersxn0 \\hpkiqmwi302\\ficikylg04 6\\\\margbsxn7 20\\eozjijw962\\gampyjf83 0\\sbkpage\\pgncont\\pgnde c \\X0A\\\\plain\\plain\\f0\\fs 24\\pard\\ssparaaux0\\s0\\s l24\\ltrpar\\ql\\keepn\\erica in\\f0\\fs24{\\*\\bkmkstart Progress Notes by Dorys San at 03/28/2022 4:00 PM}{\\*\\bkmkend Progress Notes by Dorys Funezozzo at 03/28/2022 4:00 PM}\\plain\\f0\\fs20\\hich\\ f0\\dbch\\f0\\loch\\f0\\fs20 \\v \\X0A\\bmk\\par \\X0A\\\\trowd\\trgaph0\\las trow\\trpaddl0\\trpaddfl3 \\trpaddr0\\trpaddfr3\\trl eft0\\uley717\\ltrrow \\X0A\\\\clvertalb\\clbrdrb \\brdrs\\\\\\ [id number] \\X0A\\\\pard\\intbl\\sspara aux0\\s0\\sl24\\ltrpar\\ql\\ keepn\\plain\\f0\\fs24{\\*\\ bkmkstart Progress Notes by Dorys San at 03/28/2022 4:00 PM}{\\*\\bkmkend Progress Notes by Dorys Toneyzo at 03/28/2022 4:00 PM}\\plain\\f0\\fs20\\hich\\ f0\\dbch\\f0\\loch\\f0\\cf2\\ fs20\\ltrch\\b \\X0A\\Progress Notes by Dorys San at 03/28/2022 4:00 PM\\plain\\f0\\fs20\\hich\\f 0\\dbch\\f0\\loch\\f0\\fs20 \\cell \\X0A\\\\intbl\\row \\X0A\\\\pard\\ssparaaux0\\s 0\\ql\\plain\\f0\\fs24\\plai n\\f0\\fs20\\hich\\f0\\dbch\\ f0\\loch\\f0\\fs20\\pard\\se ct \\X0A\\\\sectd\\bgvjdg22933 \\ourdya95642\\guttersxn0 \\\\zrekwwfp57 6\\husitmcv089\\margbsxn7 20\\rsfofhu273\\gahvzwu81 0\\sbknone\\pgncont\\pgnde c \\X0A\\{\\header \\X0A\\\\trowd\\trgaph0\\las trow\\trpaddl0\\trpaddfl3 \\trpaddr0\\trpaddfr3\\trl eft0\\cjos222\\ltrrow \\X0A\\\\clvertalb\\clbrdrb \\brdrs\\\\\\ hvtyu63715 \\X0A\\\\pard\\intbl\\sspara aux0\\s0\\sl24\\ltrpar\\ql\\ keepn\\plain\\f0\\fs24\\erica in\\f0\\fs20\\hich\\f0\\dbch \\f0\\loch\\f0\\cf2\\fs20\\lt rch\\b Progress Notes by Dorys San at 03/28/2022 4:00 PM (continued)\\plain\\f0\\fs 20\\hich\\f0\\dbch\\f0\\loch \\f0\\fs20 \\cell \\X0A\\\\intbl\\row \\X0A\\\\plain\\f0\\fs24}\\X0 A\\\\trowd\\trgaph0\\trpadd l0\\trpaddfl3\\trpaddr0\\t rpaddfr3\\trleft0\\trkeep \\X0A\\\\clvertalt\\cellx21 6 \\X0A\\\\clvertalt\\cellx37 44 \\X0A\\\\clvertalt\\cellx72 72 \\X0A\\\\clvertalt\\cellx10 800 \\X0A\\\\pard\\intbl\\sspara aux0\\s0\\sl24\\ql\\keepn\\p anup\\f0\\fs24\\plain\\f0\\f s20\\hich\\f0\\dbch\\f0\\loc h\\f0\\fs20\\cell \\X0A\\\\pard\\intbl\\sspara aux0\\s0\\li80\\ri80\\sl24\\ ql\\keepn\\plain\\f0\\fs24\\ plain\\f0\\fs20\\hich\\f0\\d bch\\f0\\loch\\f0\\cf3\\fs20 Author: \\plain\\f0\\fs20\\hich\\f0\\ dbch\\f0\\loch\\f0\\cf4\\fs2 0 Dorys R. Callozzo\\plain\\f0\\fs20\\ hich\\f0\\dbch\\f0\\loch\\f0 \\fs20\\cell \\X0A\\\\pard\\intbl\\sspara aux0\\s0\\li80\\ri80\\sl24\\ ql\\keepn\\plain\\f0\\fs24\\ plain\\f0\\fs20\\hich\\f0\\d bch\\f0\\loch\\f0\\cf3\\fs20 Service: \\plain\\f0\\fs20\\hich\\f0\\ dbch\\f0\\loch\\f0\\cf4\\fs2 0 \\emdash\\plain\\f0\\fs20\\h ich\\f0\\dbch\\f0\\loch\\f0\\ fs20\\cell \\X0A\\\\pard\\intbl\\sspara aux0\\s0\\li80\\ri80\\sl24\\ ql\\keepn\\plain\\f0\\fs24\\ plain\\f0\\fs20\\hich\\f0\\d bch\\f0\\loch\\f0\\cf3\\fs20 Author Type: \\plain\\f0\\fs20\\hich\\f0\\ dbch\\f0\\loch\\f0\\cf4\\fs2 0 Therapist\\plain\\f0\\fs20 \\hich\\f0\\dbch\\f0\\loch\\f 0\\fs20\\cell \\X0A\\\\intbl\\row \\X0A\\\\pard\\intbl\\sspara aux0\\s0\\sl24\\ql\\keepn\\p anup\\f0\\fs24\\plain\\f0\\f s20\\hich\\f0\\dbch\\f0\\loc h\\f0\\fs20\\cell \\X0A\\\\pard\\intbl\\sspara aux0\\s0\\li80\\ri80\\sl24\\ ql\\keepn\\plain\\f0\\fs24\\ plain\\f0\\fs20\\hich\\f0\\d bch\\f0\\loch\\f0\\cf3\\fs20 Filed: \\plain\\f0\\fs20\\hich\\f0\\ dbch\\f0\\loch\\f0\\cf4\\fs2 0 03/28/2022 4:33 PM\\plain\\f0\\fs20\\hich\\f 0\\dbch\\f0\\loch\\f0\\fs20\\ cell \\X0A\\\\pard\\intbl\\sspara aux0\\s0\\li80\\ri80\\sl24\\ ql\\keepn\\plain\\f0\\fs24\\ plain\\f0\\fs20\\hich\\f0\\d bch\\f0\\loch\\f0\\cf3\\fs20 Date of Service: \\plain\\f0\\fs20\\hich\\f0\\ dbch\\f0\\loch\\f0\\cf4\\fs2 0 03/28/2022 4:00 PM\\plain\\f0\\fs20\\hich\\f 0\\dbch\\f0\\loch\\f0\\fs20\\ cell \\X0A\\\\pard\\intbl\\sspara aux0\\s0\\li80\\ri80\\sl24\\ ql\\keepn\\plain\\f0\\fs24\\ plain\\f0\\fs20\\hich\\f0\\d bch\\f0\\loch\\f0\\cf3\\fs20 Status: \\plain\\f0\\fs20\\hich\\f0\\ dbch\\f0\\loch\\f0\\cf4\\fs2 0 Signed\\plain\\f0\\fs20\\hi ch\\f0\\dbch\\f0\\loch\\f0\\f s20\\cell \\X0A\\\\intbl\\row \\X0A\\\\trowd\\trgaph0\\las trow\\trpaddl0\\trpaddfl3 \\trpaddr0\\trpaddfr3\\trl eft0\\trkeep \\X0A\\\\clvertalt\\cellx21 6 \\X0A\\\\clvertalt\\cellx10 800 \\X0A\\\\pard\\intbl\\sspara aux0\\s0\\sl24\\ql\\keepn\\p anup\\f0\\fs24\\plain\\f0\\f s20\\hich\\f0\\dbch\\f0\\loc h\\f0\\fs20\\cell \\X0A\\\\pard\\intbl\\sspara aux0\\s0\\li80\\ri80\\sl24\\ ql\\keepn\\plain\\f0\\fs24\\ plain\\f0\\fs20\\hich\\f0\\d bch\\f0\\loch\\f0\\cf3\\fs20 Health And Wellness Director: \\plain\\f0\\fs20\\hich\\f0\\ dbch\\f0\\loch\\f0\\cf4\\fs2 0 Dorys Js Toneyzo (Therapist)\\plain\\f0\\fs 20\\hich\\f0\\dbch\\f0\\loch \\f0\\fs20\\cell \\X0A\\\\intbl\\row \\X0A\\\\trowd\\trgaph0\\las trow\\trpaddl0\\trpaddfl3 \\trpaddr0\\trpaddfr3\\trl eft0 \\X0A\\\\clvertalt\\cellx21 6 \\X0A\\\\clvertalt\\cellx10 800 \\X0A\\\\pard\\intbl\\sspara aux0\\s0\\sl24\\ql\\plain\\f 0\\fs24\\plain\\f0\\fs20\\hi ch\\f0\\dbch\\f0\\loch\\f0\\f s20\\cell \\X0A\\\\pard\\intbl\\sspara aux0\\s0\\li80\\ri80\\sl24\\ ql\\plain\\f0\\fs24\\plain\\ f0\\fs20\\hich\\f0\\dbch\\f0 \\loch\\f0\\fs20\\cell \\X0A\\\\intbl\\row (more content not included)... Normal [facility] Progress Note {\\rtf1\\uaqvln02918\\a nsi \\jsdcyxa6074\\ftnbj\\uc1\\ deff0 \\X0A\\{\\fonttbl{\\f0 \\fnil \\fcharset0 Wolford;}{\\f1 \\fnil SEGOE UI;}}\\X0A\\{\\colortbl ;\\tnk786\\upzbj720\\blue2 55 ;\\red79\\green79\\blue79 ;\\red95\\green95\\blue95 ;\\red0\\green0\\blue0 ;\\red0\\green0\\blue0 ;}\\X0A\\{\\stylesheet{\\f0 \\fs24 Normal;}{\\cs1 Default Paragraph Font;}{\\s2\\snext0 heading 1;}{\\s3\\snext0 heading 2;}{\\s4\\snext0 heading 3;}{\\s5\\snext0 heading 4;}{\\s6\\snext0 heading 5;}{\\s7\\snext0 heading 6;}}\\X0A\\{\\*\\revtbl{Unk nown;}}\\X0A\\\\fvljoc3272 0\\lhinpb72857\\blagv970\\ \\\\margb 720\\auftbdb951\\footery7 20\\nogrowautofit\\deftab 720\\formshade\\dntblnsbd b\\fet4\\aendnotes\\aftnnr lc\\pgbrdrhead\\pgbrdrfoo t \\X0A\\\\sectd\\pbsqaz45964 \\lhuwpw73075\\guttersxn0 \\yiuenkvj152\\iyogmqbm32 6\\njpjukwy294\\margbsxn7 20\\\\pidesga65 0\\sbkpage\\pgncont\\pgnde c \\X0A\\\\plain\\plain\\f0\\fs 24\\pard\\ssparaaux0\\s0\\s l24\\ltrpar\\ql\\keepn\\erica in\\f0\\fs24{\\*\\bkmkstart Progress Notes by Kirti Peterson MD at 03/28/2022 10:32 AM}{\\*\\bkmkend Progress Notes by Kirti Peterson MD at 03/28/2022 10:32 AM}\\plain\\f0\\fs20\\hich\\ f0\\dbch\\f0\\loch\\f0\\fs20 \\v \\X0A\\bmk\\par \\X0A\\\\trowd\\trgaph0\\las trow\\trpaddl0\\trpaddfl3 \\trpaddr0\\trpaddfr3\\trl eft0\\paxt761\\ltrrow \\X0A\\\\clvertalb\\clbrdrb \\brdrs\\\\\\ elczw34288 \\X0A\\\\pard\\intbl\\sspara aux0\\s0\\sl24\\ltrpar\\ql\\ keepn\\plain\\f0\\fs24{\\*\\ bkmkstart Progress Notes by Kirti Peterson MD at 03/28/2022 10:32 AM}{\\*\\bkmkend Progress Notes by Kirti Peterson MD at 03/28/2022 10:32 AM}\\plain\\f0\\fs20\\hich\\ f0\\dbch\\f0\\loch\\f0\\cf2\\ fs20\\ltrch\\b \\X0A\\Progress Notes by Kirti Peterson MD at 03/28/2022 10:32 AM\\plain\\f0\\fs20\\hich\\f 0\\dbch\\f0\\loch\\f0\\fs20 \\cell \\X0A\\\\intbl\\row \\X0A\\\\pard\\ssparaaux0\\s 0\\ql\\plain\\f0\\fs24\\plai n\\f0\\fs20\\hich\\f0\\dbch\\ f0\\loch\\f0\\fs20\\pard\\se ct \\X0A\\\\sectd\\edzhbc38343 \\zndtbb79301\\guttersxn0 \\dovejdcf386\\zvqqwapu09 6\\xpmdkvyw511\\margbsxn7 20\\oiubnky098\\yhmgxnw98 0\\sbknone\\pgncont\\pgnde c \\X0A\\{\\header \\X0A\\\\trowd\\trgaph0\\las trow\\trpaddl0\\trpaddfl3 \\trpaddr0\\trpaddfr3\\trl eft0\\jhgc484\\ltrrow \\X0A\\\\clvertalb\\clbrdrb \\brdrs\\\\\\ qeadm32296 \\X0A\\\\pard\\intbl\\sspara aux0\\s0\\sl24\\ltrpar\\ql\\ keepn\\plain\\f0\\fs24\\erica in\\f0\\fs20\\hich\\f0\\dbch \\f0\\loch\\f0\\cf2\\fs20\\lt rch\\b Progress Notes by Kirti Peterson MD at 03/28/2022 10:32 AM (continued)\\plain\\f0\\fs 20\\hich\\f0\\dbch\\f0\\loch \\f0\\fs20 \\cell \\X0A\\\\intbl\\row \\X0A\\\\plain\\f0\\fs24}\\X0 A\\\\trowd\\trgaph0\\trpadd l0\\trpaddfl3\\trpaddr0\\t rpaddfr3\\trleft0\\trkeep \\X0A\\\\clvertalt\\cellx21 6 \\X0A\\\\clvertalt\\cellx37 44 \\X0A\\\\clvertalt\\cellx72 72 \\X0A\\\\clvertalt\\cellx10 800 \\X0A\\\\pard\\intbl\\sspara aux0\\s0\\sl24\\ql\\keepn\\p anup\\f0\\fs24\\plain\\f0\\f s20\\hich\\f0\\dbch\\f0\\loc h\\f0\\fs20\\cell \\X0A\\\\pard\\intbl\\sspara aux0\\s0\\li80\\ri80\\sl24\\ ql\\keepn\\plain\\f0\\fs24\\ plain\\f0\\fs20\\hich\\f0\\d bch\\f0\\loch\\f0\\cf3\\fs20 Author: \\plain\\f0\\fs20\\hich\\f0\\ dbch\\f0\\loch\\f0\\cf4\\fs2 0 Kirti Raquel, MD\\plain\\f0\\fs20\\hich\\f 0\\dbch\\f0\\loch\\f0\\fs20\\ cell \\X0A\\\\pard\\intbl\\sspara aux0\\s0\\li80\\ri80\\sl24\\ ql\\keepn\\plain\\f0\\fs24\\ plain\\f0\\fs20\\hich\\f0\\d bch\\f0\\loch\\f0\\cf3\\fs20 Service: \\plain\\f0\\fs20\\hich\\f0\\ dbch\\f0\\loch\\f0\\cf4\\fs2 0 Psychiatry\\plain\\f0\\fs2 0\\hich\\f0\\dbch\\f0\\loch\\ f0\\fs20\\cell \\X0A\\\\pard\\intbl\\sspara aux0\\s0\\li80\\ri80\\sl24\\ ql\\keepn\\plain\\f0\\fs24\\ plain\\f0\\fs20\\hich\\f0\\d bch\\f0\\loch\\f0\\cf3\\fs20 Author Type: \\plain\\f0\\fs20\\hich\\f0\\ dbch\\f0\\loch\\f0\\cf4\\fs2 0 Physician\\plain\\f0\\fs20 \\hich\\f0\\dbch\\f0\\loch\\f 0\\fs20\\cell \\X0A\\\\intbl\\row \\X0A\\\\pard\\intbl\\sspara aux0\\s0\\sl24\\ql\\keepn\\p anup\\f0\\fs24\\plain\\f0\\f s20\\hich\\f0\\dbch\\f0\\loc h\\f0\\fs20\\cell \\X0A\\\\pard\\intbl\\sspara aux0\\s0\\li80\\ri80\\sl24\\ ql\\keepn\\plain\\f0\\fs24\\ plain\\f0\\fs20\\hich\\f0\\d bch\\f0\\loch\\f0\\cf3\\fs20 Filed: \\plain\\f0\\fs20\\hich\\f0\\ dbch\\f0\\loch\\f0\\cf4\\fs2 0 03/28/2022 1:36 PM\\plain\\f0\\fs20\\hich\\f 0\\dbch\\f0\\loch\\f0\\fs20\\ cell \\X0A\\\\pard\\intbl\\sspara aux0\\s0\\li80\\ri80\\sl24\\ ql\\keepn\\plain\\f0\\fs24\\ plain\\f0\\fs20\\hich\\f0\\d bch\\f0\\loch\\f0\\cf3\\fs20 Date of Service: \\plain\\f0\\fs20\\hich\\f0\\ dbch\\f0\\loch\\f0\\cf4\\fs2 0 03/28/2022 10:32 AM\\plain\\f0\\fs20\\hich\\f 0\\dbch\\f0\\loch\\f0\\fs20\\ cell \\X0A\\\\pard\\intbl\\sspara aux0\\s0\\li80\\ri80\\sl24\\ ql\\keepn\\plain\\f0\\fs24\\ plain\\f0\\fs20\\hich\\f0\\d bch\\f0\\loch\\f0\\cf3\\fs20 Status: \\plain\\f0\\fs20\\hich\\f0\\ dbch\\f0\\loch\\f0\\cf4\\fs2 0 Signed\\plain\\f0\\fs20\\hi ch\\f0\\dbch\\f0\\loch\\f0\\f s20\\cell \\X0A\\\\intbl\\row \\X0A\\\\trowd\\trgaph0\\trp addl0\\trpaddfl3\\trpaddr 0\\trpaddfr3\\trleft0\\trk eep \\X0A\\\\clvertalt\\cellx21 6 \\X0A\\\\clvertalt\\cellx10 800 \\X0A\\\\pard\\intbl\\sspara aux0\\s0\\sl24\\ql\\keepn\\p anup\\f0\\fs24\\plain\\f0\\f s20\\hich\\f0\\dbch\\f0\\loc h\\f0\\fs20\\cell \\X0A\\\\pard\\intbl\\sspara aux0\\s0\\li80\\ri80\\sl24\\ ql\\keepn\\plain\\f0\\fs24\\ plain\\f0\\fs20\\hich\\f0\\d bch\\f0\\loch\\f0\\cf3\\fs20 Health And Wellness Director: \\plain\\f0\\fs20\\hich\\f0\\ dbch\\f0\\loch\\f0\\cf4\\fs2 0 Kirti Raquel, MD (Physician)\\plain\\f0\\fs 20\\hich\\f0\\dbch\\f0\\loch \\f0\\fs20\\cell \\X0A\\\\intbl\\row \\X0A\\\\trowd\\trgaph0\\las trow\\trpaddl0\\trpaddfl3 \\trpaddr0\\trpaddfr3\\trl eft0\\trkeep \\X0A\\\\clvertalt\\cellx21 6 \\X0A\\\\clvertalt\\cellx10 800 \\X0A\\\\pard\\intbl\\sspara aux0\\s0\\sl24\\ql\\keepn\\p anup\\f0\\fs24\\plain\\f0\\f s20\\hich\\f0\\dbch\\f0\\loc h\\f0\\fs20\\cell \\X0A\\\\pard\\intbl\\sspara aux0\\s0\\li80\\ri80\\sl24\\ ql\\keepn\\plain\\f0\\fs24\\ plain\\f0\\fs20\\hich\\f0\\d bch\\f0\\loch\\f0\\cf3\\fs20 Related Notes: \\plain\\f0\\fs20\\hich\\f0\\ (more content not included)... Normal [facility] CAREPLNon 03-26-2022 CAREPLN {\\rtf1\\ukqwij31627\\a nsi \\yynnpfr8349\\ftnbj\\uc1\\ deff0 \\X0A\\{\\fonttbl{\\f0 \\fnil \\fcharset0 Wolford;}{\\f1 \\fnil SEGOE UI;}}\\X0A\\{\\colortbl ;\\sgi355\\obvii692\\blue2 55 ;\\red79\\green79\\blue79 ;\\red95\\green95\\blue95 ;\\red0\\green0\\blue0 ;\\red0\\green0\\blue0 ;}\\X0A\\{\\stylesheet{\\f0 \\fs24 Normal;}{\\cs1 Default Paragraph Font;}{\\s2\\snext0 heading 1;}{\\s3\\snext0 heading 2;}{\\s4\\snext0 heading 3;}{\\s5\\snext0 heading 4;}{\\s6\\snext0 heading 5;}{\\s7\\snext0 heading 6;}}\\X0A\\{\\*\\revtbl{Unk nown;}}\\X0A\\\\rrachr3016 0\\voxemq15320\\klfio503\\ qyhwt337\\\\margb 720\\ifkpvck469\\footery7 20\\nogrowautofit\\deftab 720\\formshade\\dntblnsbd b\\fet4\\aendnotes\\aftnnr lc\\pgbrdrhead\\pgbrdrfoo t \\X0A\\\\sectd\\tihdop89761 \\mxszhw54266\\guttersxn0 \\scuedbsc182\\weztqwfj90 6\\otmemtsi717\\margbsxn7 20\\ooquqho795\\nxpuomu06 0\\sbkpage\\pgncont\\pgnde c \\X0A\\\\plain\\plain\\f0\\fs 24\\pard\\ssparaaux0\\s0\\s l24\\ltrpar\\ql\\keepn\\erica in\\f0\\fs24{\\*\\bkmkstart Care Plan by Andria Leverknight at 03/26/2022 9:50 PM}{\\*\\bkmkend Care Plan by Andria Leverknight at 03/26/2022 9:50 PM}\\plain\\f0\\fs20\\hich\\ f0\\dbch\\f0\\loch\\f0\\fs20 \\v \\X0A\\bmk\\par \\X0A\\\\trowd\\trgaph0\\las trow\\trpaddl0\\trpaddfl3 \\trpaddr0\\trpaddfr3\\trl eft0\\tkkc916\\ltrrow \\X0A\\\\clvertalb\\clbrdrb \\brdrs\\\\\\ cjpdp32595 \\X0A\\\\pard\\intbl\\sspara aux0\\s0\\sl24\\ltrpar\\ql\\ keepn\\plain\\f0\\fs24{\\*\\ bkmkstart Care Plan by Andria Leverknight at 03/26/2022 9:50 PM}{\\*\\bkmkend Care Plan by Andria Leverknight at 03/26/2022 9:50 PM}\\plain\\f0\\fs20\\hich\\ f0\\dbch\\f0\\loch\\f0\\cf2\\ fs20\\ltrch\\b \\X0A\\Care Plan by Andria Leverknight at 03/26/2022 9:50 PM\\plain\\f0\\fs20\\hich\\f 0\\dbch\\f0\\loch\\f0\\fs20 \\cell \\X0A\\\\intbl\\row \\X0A\\\\pard\\ssparaaux0\\s 0\\ql\\plain\\f0\\fs24\\plai n\\f0\\fs20\\hich\\f0\\dbch\\ f0\\loch\\f0\\fs20\\pard\\se ct \\X0A\\\\sectd\\mngbwn71314 \\mxungr32548\\guttersxn0 \\\\xdqbcecy18 6\\fxerkjbb216\\margbsxn7 20\\dilnjwe587\\ocyshzt60 0\\sbknone\\pgncont\\pgnde c \\X0A\\{\\header \\X0A\\\\trowd\\trgaph0\\las trow\\trpaddl0\\trpaddfl3 \\trpaddr0\\trpaddfr3\\trl eft0\\gupq612\\ltrrow \\X0A\\\\clvertalb\\clbrdrb \\brdrs\\\\\\ smrja65721 \\X0A\\\\pard\\intbl\\sspara aux0\\s0\\sl24\\ltrpar\\ql\\ keepn\\plain\\f0\\fs24\\erica in\\f0\\fs20\\hich\\f0\\dbch \\f0\\loch\\f0\\cf2\\fs20\\lt rch\\b Care Plan by Andria Eddy at 03/26/2022 9:50 PM (continued)\\plain\\f0\\fs 20\\hich\\f0\\dbch\\f0\\loch \\f0\\fs20 \\cell \\X0A\\\\intbl\\row \\X0A\\\\plain\\f0\\fs24}\\X0 A\\\\trowd\\trgaph0\\trpadd l0\\trpaddfl3\\trpaddr0\\t rpaddfr3\\trleft0\\trkeep \\X0A\\\\clvertalt\\cellx21 6 \\X0A\\\\clvertalt\\cellx37 44 \\X0A\\\\clvertalt\\cellx72 72 \\X0A\\\\clvertalt\\cellx10 800 \\X0A\\\\pard\\intbl\\sspara aux0\\s0\\sl24\\ql\\keepn\\p anup\\f0\\fs24\\plain\\f0\\f s20\\hich\\f0\\dbch\\f0\\loc h\\f0\\fs20\\cell \\X0A\\\\pard\\intbl\\sspara aux0\\s0\\li80\\ri80\\sl24\\ ql\\keepn\\plain\\f0\\fs24\\ plain\\f0\\fs20\\hich\\f0\\d bch\\f0\\loch\\f0\\cf3\\fs20 Author: \\plain\\f0\\fs20\\hich\\f0\\ dbch\\f0\\loch\\f0\\cf4\\fs2 0 Andria Leverknight\\plain\\f0\\fs 20\\hich\\f0\\dbch\\f0\\loch \\f0\\fs20\\cell \\X0A\\\\pard\\intbl\\sspara aux0\\s0\\li80\\ri80\\sl24\\ ql\\keepn\\plain\\f0\\fs24\\ plain\\f0\\fs20\\hich\\f0\\d bch\\f0\\loch\\f0\\cf3\\fs20 Service: \\plain\\f0\\fs20\\hich\\f0\\ dbch\\f0\\loch\\f0\\cf4\\fs2 0 \\emdash\\plain\\f0\\fs20\\h ich\\f0\\dbch\\f0\\loch\\f0\\ fs20\\cell \\X0A\\\\pard\\intbl\\sspara aux0\\s0\\li80\\ri80\\sl24\\ ql\\keepn\\plain\\f0\\fs24\\ plain\\f0\\fs20\\hich\\f0\\d bch\\f0\\loch\\f0\\cf3\\fs20 Author Type: \\plain\\f0\\fs20\\hich\\f0\\ dbch\\f0\\loch\\f0\\cf4\\fs2 0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 screening 19 U/L 15-37 [facility] Work Phone: Thin prep Papanicolaou smear with manual screening 6 5-15 [facility] Work Phone: Thin prep Papanicolaou smear with manual screening See comment [facility] Work Phone: Comment on above: Result: Not Observed Total protein bloodon 2021 Protein [Mass/Vol] 6.2 g/dL 6.0-8.5 [facility] Work Phone: Absolute lymphocyte counton 02-05-2022 Lymphocytes Auto (Unsp spec) [#/Vol] 1.49 10*3/uL 0.83-4.51 [facility] Work Phone: Basophil percentageon 2021 Basophils/100 WBC (Bld) 0.4 % 0-1 [facility] Work Phone: Chloride [Moles/Vol] 105 mmol/L 98-107 [facility] Work Phone: Eosinophils/100 WBC (Bld) 7.3 % 0-5 [facility] Work Phone: Glucose [Mass/Vol] 118 mg/dL 74-106 [facility] Work Phone: Comment on above: Fasting Glucose resu lt from 100 to 125 mg/dL suggests IMPAIRED HOMEOSTASIS per A.D.A. criteria. Neutrophils (Bld) [#/Vol] 4.3 10*3/uL 2.0-7.7 [facility] Work Phone: Neutrophils/100 WBC (Bld) 60.9 % 47-70 [facility] Work Phone: Potassium [Moles/Vol] 4.0 mmol/L 3.5-5.1 [facility] Work Phone: Sodium [Moles/Vol] 137 mmol/L 136-145 [facility] Work Phone: WBC (Bld) [#/Vol] 7.0 10*3/uL 4.4-11.0 [facility] Work Phone: Blood erythrocytes count (nu mber/volume)on 02-05-2022 RBC (Bld) [#/Vol] 3.80 10*6/uL 4.6-6.2 [facility]: Blood hemoglobin measurement (mass/volume)on 02-05-2022 Hemoglobin (Bld) [Mass/Vol] 11.2 g/dL 13.0-16.5 [facility] Work Phone: [phone] Blood lymphocytes/100 leukoc yteson 02-05-2022 Lymphocytes/100 WBC (Bld) 21.3 % 19-41 [facility] Work Phone: [phone] Blood monocytes/100 leukocyt eson 02-05-2022 Monocytes/100 WBC (Bld) 9.7 % 0-10 [facility] Work Phone: Blood platelet mean volumeon 02-05-2022 Platelet mean volume (Bld) [Entitic vol] 9.0 fL 6.2-12.0 [facility] Work Phone: Determination of erythrocyte mean corpuscular volume (MCV)on 02-05-2022 MCV (RBC) [Entitic vol] 91.8 fL 80-94 [facility] Work Phone: Hematocrit Auto (Bld) [Volum e fraction]on 02-05-2022 Hematocrit (Bld) [Volume fraction] 34.9 % 40-54 [facility] Work Phone: Laboratory - Chemistry and C hemistry - challengeon 02-05-2022 CO2 [Moles/Vol] 26.0 mmol/L 21.0-32.0 [facility] Work Phone: Urea nitrogen/Creatinine [Mass ratio] 41.4 mg/mg 10-20 [facility] Work Phone: Laboratory - Hematology and Cell countson 02-05-2022 Erythrocyte distribution width (RBC) [Entitic vol] 47.2 fL 35.1-43.9 [facility] Work Phone: Erythrocyte distribution width (RBC) [Ratio] 14.2 % 11.6-14.6 [facility] Work Phone: Immature granulocytes/100 WBC (Bld) 0.400 % 0.0-0.9 [facility] Work Phone: Comment on above: IG% - Immature Granu locytes (promyelocytes, myelocytes and metamyelocytes) > 1% indicates that a LEFT SHIFT is Present. MCH (RBC) [Entitic mass] 29.5 pg 27.0-32.0 [facility] Work Phone: Nucleated RBC/100 WBC (Bld) [Ratio] 0 % 0-5 [facility] Work Phone: MCHC Auto (RBC) [Mass/Vol]on 02-05-2022 MCHC (RBC) [Mass/Vol] 32.1 g/dL 32-36 [facility] Work Phone: No Panel Informationon 02-05 Estimated Creatinine Clearance Calc 58.92 ml/min [facility] Work Phone: Estimated GFR (MDRD) Amer 145 mL/min >60 [facility] Work Phone: Comment on above: GFR Calc Estimated GFR (MDRD) Non-Af Amer 120 mL/min >60 [facility] Work Phone: Comment on above: Non- GFR Calc Platelets bldon 02-05-2022 Platelets (Bld) [#/Vol] 256 10*3/uL 150-450 [facility] Work Phone: Serum or plasma calcium stalin urement (mass/volume)on 02-05-2022 Calcium [Mass/Vol] 8.5 mg/dL 8.5-10.1 [facility] Work Phone: Serum or plasma creatinine m easurement (mass/volume)on 02-05-2022 Creatinine [Mass/Vol] 0.68 mg/dL 0.70-1.30 [facility] Work Phone: Comment on above: The validity of the calculated GFR & GFRAA in patients over 70 years has not been determined. Clinical correlation is essential. Serum or plasma urea nitroge n measurement (mass/volume)on 02-05-2022 Urea nitrogen [Mass/Vol] 28 mg/dL 7-18 [facility] Work Phone: Thin prep Papanicolaou smear with manual screeningon 02-05-2022 Thin prep Papanicolaou smear with manual screening 6 5-15 [facility] Work Phone: Absolute lymphocyte counton 01-21-2022 Lymphocytes Auto (Unsp spec) [#/Vol] 1.78 10*3/uL 0.83-4.51 [facility] Work Phone: Basophil percentageon 2021 Basophils/100 WBC (Bld) 0.6 % 0-1 [facility] Work Phone: Eosinophils/100 WBC (Bld) 8.6 % 0-5 [facility] Work Phone: Neutrophils (Bld) [#/Vol] 4.7 10*3/uL 2.0-7.7 [facility] Work Phone: Neutrophils/100 WBC (Bld) 58.1 % 47-70 [facility] Work Phone: WBC (Bld) [#/Vol] 8.0 10*3/uL 4.4-11.0 [facility] Work Phone: Blood erythrocytes count (nu mber/volume)on 01-21-2022 RBC (Bld) [#/Vol] 3.76 10*6/uL 4.6-6.2 [facility] Work Phone: Blood hemoglobin measurement (mass/volume)on 01-21-2022 Hemoglobin (Bld) [Mass/Vol] 11.3 g/dL 13.0-16.5 [facility] Work Phone: Blood lymphocytes/100 leukoc yteson 01-21-2022 Lymphocytes/100 WBC (Bld) 22.2 % 19-41 [facility] Work Phone: Blood monocytes/100 leukocyt eson 01-21-2022 Monocytes/100 WBC (Bld) 10.0 % 0-10 [facility] Work Phone: Blood platelet mean volumeon 01-21-2022 Platelet mean volume (Bld) [Entitic vol] 9.0 fL 6.2-12.0 [facility] Work Phone: Determination of erythrocyte mean corpuscular volume (MCV)on 01-21-2022 MCV (RBC) [Entitic vol] 91.2 fL 80-94 [facility] Work Phone: Hematocrit Auto (Bld) [Volum e fraction]on 01-21-2022 Hematocrit (Bld) [Volume fraction] 34.3 % 40-54 [facility] Work Phone: Laboratory - Hematology and Cell countson 01-21-2022 Erythrocyte distribution width (RBC) [Entitic vol] 43.4 fL 35.1-43.9 [facility] Work Phone: [phone] Erythrocyte distribution width (RBC) [Ratio] 13.2 % 11.6-14.6 [facility] Work Phone: [phone] Immature granulocytes/100 WBC (Bld) 0.500 % 0.0-0.9 [facility] Work Phone: [phone] Comment on above: IG% - Immature Granu locytes (promyelocytes, myelocytes and metamyelocytes) > 1% indicates that a LEFT SHIFT is Present. MCH (RBC) [Entitic mass] 30.1 pg 27.0-32.0 [facility] Work Phone: [phone] Nucleated RBC/100 WBC (Bld) [Ratio] 0 % 0-5 [facility] Work Phone: MCHC Auto (RBC) [Mass/Vol]on 01-21-2022 MCHC (RBC) [Mass/Vol] 32.9 g/dL 32-36 [facility] Work Phone: [phone] Platelets bldon 01-21-2022 Platelets (Bld) [#/Vol] 333 10*3/uL 150-450 [facility] Work Phone: [phone] Basophil percentageon 2021 Chloride [Moles/Vol] 108 mmol/L 98-107 [facility] Work Phone: [phone] Glucose [Mass/Vol] 89 mg/dL 74-106 [facility] Work Phone: [phone] Potassium [Moles/Vol] 3.6 mmol/L 3.5-5.1 [facility] Work Phone: [phone] Sodium [Moles/Vol] 138 mmol/L 136-145 [facility] Work Phone: [phone] Laboratory - Chemistry and C hemistry - challengeon 01-19-2022 CO2 [Moles/Vol] 25.0 mmol/L 21.0-32.0 [facility] Work Phone: Urea nitrogen/Creatinine [Mass ratio] 16.4 mg/mg 10-20 [facility] Work Phone: No Panel Informationon 01-19 Methicillin-Resist S.aureus DNA PCR Positive Negative [facility] Work Phone: Estimated Creatinine Clearance Calc 58.92 ml/min [facility] Work Phone: Estimated GFR (MDRD) Amer 146 mL/min >60 [facility] Work Phone: Comment on above: GFR Calc Estimated GFR (MDRD) Non-Af Amer 121 mL/min >60 [facility] Work Phone: Comment on above: Non- GFR Calc Serum or plasma calcium stalin urement (mass/volume)on 01-19-2022 Calcium [Mass/Vol] 7.9 mg/dL 8.5-10.1 [facility] Work Phone: Serum or plasma creatinine m easurement (mass/volume)on 01-19-2022 Creatinine [Mass/Vol] 0.67 mg/dL 0.70-1.30 [facility] Work Phone: Comment on above: The validity of the calculated GFR & GFRAA in patients over 70 years has not been determined. Clinical correlation is essential. Serum or plasma urea nitroge n measurement (mass/volume)on 01-19-2022 Urea nitrogen [Mass/Vol] 11 mg/dL 7-18 [facility] Work Phone: Staphylococcus aureus DNA de tection by probe and target amplification methodon 01-19-2022 S. aureus DNA REMI+probe Ql (Unsp spec) Positive Negative [facility] Work Phone: Thin prep Papanicolaou smear with manual screeningon 01-19-2022 Thin prep Papanicolaou smear with manual screening 5 5-15 [facility] Work Phone: Basophil percentageon 2021 Lactate [Moles/Vol] 1.5 mmol/L 0.4-2.0 [facility] Work Phone: INR in Blood by Coagulation assayon 01-18-2022 INR Coag (Bld) [Relative time] 1.1 {INR} [facility] Work Phone: Laboratory - Coagulationon 0 01-18-2022 PT Coag (PPP) [Time] 13.9 s 11.7-14.9 [facility] Work Phone: Bacteria identified Cx Nom ( Wound) Wound Culture Meth. resistant Stap h. aureus [facility] Work Phone: Wound Culture Corynebacterium minutissimum [facility] Work Phone: COVID-19 virus antigen assay SARS-CoV-2 (COVID-19) Ag IA.rapid Ql (Resp) [facility] Work Phone: Gram stain for investigation of transfusion reaction Microscopic observation Gram stain Nom (Unsp spec) [facility] Work Phone: Laboratory - Microbiology an d Antimicrobial susceptibility Bacteria identified Cx Nom (Bld) No growth in 5 days. [facility] Work Phone: Vital Signs Date Time Vital Sign Value Performing Clinician Faci lity 10-30-2023 13:00-0400 Body height 177.8 cm Alvaro Mcmillan MD Work Phone: [facility] [employer] 10-30-2023 13:00-0400 Body mass index (BMI) [Ratio] 33.72 kg/m2 Alvaro Mcmillan MD Work Phone: [facility] [employer] 10-30-2023 13:00-0400 Body weight 106.59 kg Alvaro Mcmillan MD Work Phone: [facility] [employer] 10-30-2023 13:00-0400 Diastolic blood pressure 59 mm[Hg] Alvaro Mcmillan MD Work Phone: [facility] [employer] 10-30-2023 13:00-0400 Heart rate 66 /min Alvaro Mcmillan MD Work Phone: [facility] [employer] 10-30-2023 13:00-0400 Systolic blood pressure 139 mm[Hg] Alvaro Mcmillan MD Work Phone: [facility] 10-01-2023 13:35-0400 Body temperature 97.9 [degF] [facility] 10-01-2023 13:35-0400 Diastolic blood pressure 72 mm[Hg] [facility] 10-01-2023 13:35-0400 Heart rate 72 /min [facility] 10-01-2023 13:35-0400 Respiratory rate 18 /min [facility] 10-01-2023 13:35-0400 SaO2% (BldA) [Mass fraction] 61 % [facility] 10-01-2023 13:35-0400 Systolic blood pressure 131 mm[Hg] [facility] 10-01-2023 10:56-0400 Body height 175.01 cm [facility] 10-01-2023 10:56-0400 Body mass index (BMI) [Ratio] 15.8 kg/m2 [facility] 10-01-2023 10:56-0400 Body weight 48.48 kg [facility] 09-26-2023 14:56-0400 Body height 177.8 cm Alvaro Mcmillan MD Work Phone: [facility] 09-26-2023 14:56-0400 Body mass index (BMI) [Ratio] 33.72 kg/m2 Alvaro Mcmillan MD Work Phone: [facility] 09-26-2023 14:56-0400 Body weight 106.59 kg Alvaro Mcmillan MD Work Phone: [facility] 02-10-2022 05:50-0400 Body temperature 98.5 [degF] [facility] Work Phone: 02-10-2022 05:50-0400 Diastolic blood pressure 71 mm[Hg] [facility] Work Phone: 02-10-2022 05:50-0400 Heart rate 72 /min [facility] Work Phone: 02-10-2022 05:50-0400 Respiratory rate 16 /min [facility] Work Phone: 02-10-2022 05:50-0400 SaO2% (BldA) [Mass fraction] 95 % [facility] Work Phone: 02-10-2022 05:50-0400 Systolic blood pressure 129 mm[Hg] [facility] Work Phone: 02-08-2022 09:38-0400 Body weight 87.28 kg [facility] Work Phone: 02-02-2022 12:55-0400 Body height 175.26 cm [facility] Work Phone: 01-21-2022 15:47-0400 Body mass index (BMI) [Ratio] 28.2 kg/m2 [facility] Work Phone: 01-21-2022 13:34-0400 Body temperature 98.1 [degF] [facility] Work Phone: 01-21-2022 13:34-0400 Diastolic blood pressure 50 mm[Hg] [facility] Work Phone: 01-21-2022 13:34-0400 Heart rate 71 /min [facility] Work Phone: 01-21-2022 13:34-0400 Respiratory rate 15 /min [facility] Work Phone: 01-21-2022 13:34-0400 SaO2% (BldA) [Mass fraction] 98 % [facility] Work Phone: 01-21-2022 13:34-0400 Systolic blood pressure 107 mm[Hg] [facility] Work Phone: 01-19-2022 10:43-0400 Body height 175.26 cm [facility] Work Phone: 08-24-2022 10:43-0400 Body weight 85 kg [facility] Work Phone: 01-18-2022 19:14-0400 Body mass index (BMI) [Ratio] 27.6 kg/m2 [facility] Work Phone: 10-27-2021 19:59-0400 Respiratory rate 18 /min [facility] Work Phone: 10-27-2021 17:40-0400 Diastolic blood pressure 56 mm[Hg] [facility] Work Phone: 10-27-2021 17:40-0400 Heart rate 63 /min [facility] Work Phone: 10-27-2021 17:40-0400 SaO2% (BldA) [Mass fraction] 99 % [facility] Work Phone: 10-27-2021 17:40-0400 Systolic blood pressure 122 mm[Hg] [facility] Work Phone: 10-27-2021 15:49-0400 Body height 177.8 cm [facility] Work Phone: 10-27-2021 15:49-0400 Body mass index (BMI) [Ratio] 25.8 kg/m2 [facility] Work Phone: 10-27-2021 15:49-0400 Body temperature 98 [degF] [facility] Work Phone: 10-27-2021 15:49-0400 Body weight 81.64 kg [facility] Work Phone: Encounters Encounter Date Encounter Type Care Provider Facility Start: 10-01-2024 End: 10-01-2024 ambulatory Robina Padmaja Staples. Facility:[facility] Start: 02-09-2024 ambulatory Robina Padmaja Luna ty:[facility] Start: 02-07-2024 ambulatory Robina Padmaja Luna ty:[facility] Start: 01-18-2024 ambulatory Robina Padmaja Luna ty:[facility] Start: 12-20-2023 End: 12-20-2023 ambulatory Juli Martinez Facility:[facility] Start: 11-22-2023 End: 11-22-2023 ambulatory Robina Gregorio Sr. Facility:[facility] Start: 10-30-2023 End: 10-30-2023 Office outpatient visit 25 minutes Alvaro Mcmillan MD Work Phone: [facility] Comment on above: Non-recurrent unilat eral inguinal hernia without obstruction or gangrene (Primary Dx) Start: 10-30-2023 End: 10-30-2023 ambulatory [facility] Start: 10-12-2023 End: 10-12-2023 Subsequent hospital visit by physician Alvaro Mcmillan MD Work Phone: [facility] Comment on above: Inguinal lymphadenop athy Start: 10-12-2023 End: 10-12-2023 ambulatory [facility] Start: 10-01-2023 End: 10-01-2023 Emergency department patient visit [facility] Work Phone: Start: 09-26-2023 End: 09-26-2023 Office outpatient new 45 minutes Alvaro Mcmillan MD Work Phone: [facility] Comment on above: Inguinal lymphadenop athy (Primary Dx) Start: 09-26-2023 End: 09-26-2023 ambulatory [facility] Start: 09-11-2023 Telephone encounter Alvaro Mccoy ra, MD Work Phone: [facility] Start: 04-05-2023 End: 04-05-2023 ambulatory [facility] Work Phone: Start: 04-05-2023 End: 04-05-2023 Departed Referred [facility] Start: 02-27-2023 End: 02-27-2023 Departed Referred [facility] Start: 02-22-2023 End: 02-22-2023 [facility] Start: 02-22-2023 End: 02-22-2023 Subsequent hospital visit by physician Robina Gregorio DO Work Phone: [facility] Comment on above: Swelling; Pain in central right lower extremity Start: 08-31-2022 End: 08-31-2022 ambulatory [facility] Work Phone: Start: 08-31-2022 End: 08-31-2022 [facility] Start: 06-06-2022 End: 06-06-2022 ambulatory [facility] Work Phone: Start: 06-06-2022 End: 06-06-2022 Departed Referred [facility] Start: 06-06-2022 Registered Referred [facility] Start: 05-18-2022 End: 05-18-2022 ambulatory [facility] Work Phone: Start: 05-18-2022 End: 05-18-2022 Departed Referred [facility] Start: 05-18-2022 Registered Referred [facility] Start: 05-09-2022 End: 05-09-2022 ambulatory [facility] Work Phone: Start: 05-09-2022 End: 05-09-2022 Departed Referred [facility] Start: 05-09-2022 Registered Referred [facility] Start: 04-25-2022 End: 04-25-2022 ambulatory [facility] Work Phone: Start: 04-25-2022 End: 04-25-2022 [facility] Start: 03-23-2022 End: 03-29-2022 Evaluation and management of inpatient [facility] Start: 03-23-2022 End: 03-24-2022 Emergency department patient visit TORO BYRNES [facility] Start: 02-14-2022 Registered Referred [facility] Start: 01-21-2022 End: 02-10-2022 Evaluation and management of inpatient [facility] Start: 01-21-2022 Non-patient / Non-visit [facility] Start: 01-20-2022 Non-patient / Non-visit [facility] Start: 01-19-2022 Non-patient / Non-visit [facility] Start: 01-18-2022 End: 01-21-2022 Evaluation and management of inpatient [facility] 3 Start: 10-27-2021 End: 10-27-2021 Emergency department patient visit [facility] Procedures Date Procedure Procedure Detail Performing Clinician Start: 10-01-2023 Plain X-ray of tibia and fibula Start: 10-01-2023 Radiologic examinati on of knee Start: 02-22-2023 Dup-scan xtr veins unilateral/limited study Robina Agenda DO Work Phone: Start: 03-26-2022 Lipid 1996 panel - S tigist or Plasma [facility] Work Phone: Start: 01-23-2022 X-ray of lumbar spin e, two or three views [facility] Start: 01-18-2022 End: 01-18-2022 Plain X-ray of tibia and fibula [facility] Bacteria identified in Blood by Culture [facility] Investigation of transfusion reaction [facility] Microbial culture, routine [facility] Viral antigen assay [facility] Plan of Treatment Date Care Activity Detail Author Start: 03-26-2027 Lipid panel Lipid Panel [facility] Start: 01-28-2024 Influenza vaccination Influenz a Vaccine (Season Ended) [facility] Start: 10-30-2023 End: 10-30-2023 Patient encounter procedure [facility] Start: 10-12-2023 End: 10-12-2023 Patient encounter procedure 10/12/2023 8:[address] [facility] [address] [place] [id number] Alvaro Mcmillan MD [address] [place] [address] [facility] [address] Start: 10-01-2023 [facility] Start: 09-26-2023 End: 09-26-2023 Patient encounter procedure 09/26/2023 3:00 PM EDT Office Visit [facility] [address] [place] [id number] Alvaro Mcmillan MD [address] [place] [address] [facility] Start: 09-26-2023 End: 09-25-2024 Creatinine [Mass/volume] in Serum or Plasma Creatinine, Serum Lab Routine Inguinal lymphadenopathy Expected: 09/26/2023 (Approximate), Expires: 09/25/2024 [facility] Comment on above: Expected: 09/26/2023 (Approximate), Expires: 09/25/2024 Start: 09-26-2023 End: 09-25-2024 CT Pelvis W contrast IV CT pelvis w IV contrast Imaging Routine Inguinal lymphadenopathy Expected: 09/26/2023, Expires: 09/25/2024 [facility] Work Phone: Comment on above: Expected: 09/26/2023 , Expires: 09/25/2024 Start: 01-27-2023 COVID-19 Vaccine ( season) COVID-19 Vaccine ( season) [facility] Start: 01-27-2023 Influenza vaccination Influenza Vacc ine (#1) [facility] Start: 02-10-2022 Patient discharge [facility] Work Phone: Start: 02-09-2022 Development of care plan [facility] Work Phone: Start: 02-09-2022 Developing a treatme nt plan [facility] Work Phone: Start: 02-06-2022 Care of central veno us catheter [facility] Work Phone: Start: 01-22-2022 Speech therapy management [facility] Work Phone: Start: 01-22-2022 Developing a treatme nt plan [facility] Work Phone: Start: 01-22-2022 Development of care plan [facility] Work Phone: Start: 01-21-2022 Patient referral to dietitian [facility] Work Phone: Start: 01-21-2022 Consultation for treatment [facility] Work Phone: Start: 01-21-2022 Wound care [facility] Work Phone: Start: 01-21-2022 Admission procedure [facility] Work Phone: Start: 01-21-2022 Measuring intake and output [facility] Work Phone: Start: 01-21-2022 Patient referral to dietitian [facility] Work Phone: Start: 01-21-2022 Referral to occupati onal therapist [facility] Work Phone: Start: 01-21-2022 Referral to service [facility] Work Phone: Start: 01-21-2022 Vital signs measurements [facility] Work Phone: Start: 01-21-2022 [facility] Work Phone: Start: 01-21-2022 Patient discharge [facility] Work Phone: Start: 01-21-2022 Application of elast ic bandage [facility] Work Phone: Start: 01-21-2022 Speech therapy assessment [facility] Work Phone: Start: 01-19-2022 Wound care [facility] Work Phone: Start: 01-19-2022 [facility] Work Phone: Start: 01-18-2022 Assessment of risk o f venous thromboembolism [facility] Work Phone: Start: 01-18-2022 Consultation for treatment [facility] Work Phone: Start: 01-18-2022 Insertion of cathete r into peripheral vein [facility] Work Phone: Start: 01-18-2022 Patient referral to dietitian [facility] Work Phone: Start: 01-18-2022 Providing care accor ding to standard [facility] Work Phone: Start: 01-18-2022 Provision of activit y privileges [facility] Work Phone: Start: 01-18-2022 Referral to occupati onal therapist [facility] Work Phone: Start: 01-18-2022 Referral to service [facility] Work Phone: Start: 01-18-2022 [facility] Work Phone: Start: 01-18-2022 Following clinical pathway protocol [facility] Work Phone: Start: 01-18-2022 Blood culture [facility] Work Phone: Start: 01-18-2022 Admission procedure [facility] Work Phone: Start: 01-18-2022 Blood culture [facility] Work Phone: Start: 01-18-2022 Patient referral to dietitian [facility] Work Phone: Start: 11-10-2021 Pneumococcal Vaccine : 65+ Years (2 of 2 - PCV) Pneumococcal Vaccine: 65+ Years (2 of 2 - PCV) [facility] Start: 2001 RSV Immunization age d 60 or older (1 - 1-dose 60+ series) RSV Immunization aged 60 or older (1 - 1-dose 60+ series) [facility] Start: 1991 Zoster Vaccines (1 of 2) Zoster Vacc ethan (1 of 2) [facility] Start: 1960 DTaP/Tdap/Td Vaccine s (1 - Tdap) DTaP/Tdap/Td Vaccines (1 - Tdap) [facility] Start: 1953 Depression Screening Depression Scre ening [facility] Start: 1947 Pneumococcal Vaccine : 65+ Years (1 - PCV) Pneumococcal Vaccine: 65+ Years (1 - PCV) [facility] Start: 1941 COVID-19 Vaccine (#1) COVID-19 Vacci ne (#1) [facility] Start: 1940 Medicare Annual Well ness (AWV) Medicare Annual Wellness (AWV) [facility] Bacteria identified in Blood by Culture Blood Culture [facility] Work Phone: End: 10-12-2023 CT Pelvis W contrast IV [facility] Work Phone: Comment on above: Once for 1 Occurrenc es starting 10/12/2023 until 10/12/2023 Microbial culture, routine Wound Culture [facility] Work Phone: OUTSIDE PROCEDURE SCAN OUTSIDE P ROCEDURE SCAN Procedures Ordered: 02/22/2023 [facility] Comment on above: Ordered: 02/22/2023 OUTSIDE PROCEDURE SCAN OUTSIDE P ROCEDURE SCAN Procedures Ordered: 10/11/2023 [facility] Comment on above: Ordered: 10/11/2023 Patient Education [facility] Work Phone: Patient referral [facility] Work Phone: Immunizations Immunization Date Immunization Notes Care Provider Fa sandraty 01-25-2022 Covid (Pfizer) [facility] 01-22-2022 Pneumococcal Vaccine PCV20 (Prevnar 20) [facility] 10-27-2021 Covid (Pfizer) [facility] 11-10-2020 influenza, injectabl e, quadrivalent, preservative free [facility] 11-10-2020 influenza, seasonal, injectable [facility] 11-10-2020 pneumococcal polysaccharide vaccine, 23 valent [facility] 11-10-[address] [facility] Work Phone: 11-10-2020 pneumococcal vaccine , unspecified formulation [facility] 11-10-2020 influenza virus vacc ine, unspecified formulation Alvaro Mcmillan MD Work Phone: [facility] 07-28-2016 influenza, injectabl e, quadrivalent, preservative free [facility] 07-28-2016 influenza, seasonal, injectable [facility] 03-16-2015 influenza, injectabl e, quadrivalent, preservative free [facility] 03-16-2015 influenza, seasonal, injectable [facility] 06-14-2014 influenza, injectabl e, quadrivalent, preservative free [facility] 06-14-2014 influenza, seasonal, injectable [facility] Payers Date Payer Category Payer Unknown [id number] 2023 Self-pay [id number] 2023 Unknown [id number] 2006 Medicare 2006 Medicare [id number] 1940 Unknown [id number] Unknown VA AUTH REQUIR ED SEE NOTE [id number] Unknown [id number] Unknown [id number] Unknown [id number] Unknown [id number] Unknown [id number] Unknown [id number] Social History Date Type Detail Facility Start: 10-27-2021 End: 10-01-2023 Tobacco smoking status TXIS Unknown if ever smoked [facility] Start: 11-05-2020 None [facility] Start: 11-05-2020 Alone [facility] Start: 11-05-2020 Non-smoker [facility] Start: 1940 Sex Assigned At Male [facility] Start: 1940 Sex Assigned At Not on file [facility] Gender identity Not on file [facility] Start: 10-30-2023 Tobacco smoking stat us TXIS Smokes tobacco daily [facility] History of tobacco use Cigarette Smoker S [facility] Start: 10-30-2023 Tobacco use and exposure Former smokeless tobacco user [facility] Start: 10-30-2023 Alcohol intake Ex-drinker (finding) [facility] Goals Date Patient Goal Desired Activity /State Functional Status Date Assessment Result Facility 02-10-2022 Functional status Chair [facility] Work Phone: 01-21-2022 Functional status Ambulates [facility] Work Phone: Mental Status Date Assessment Result Facility 02-10-2022 Cognitive function Voice/Name [facility] Work Phone: 01-21-2022 Cognitive function Cooperative [facility] Work Phone: 01-20-2022 Cognitive function Arousable To Voice/Nam e [facility] Work Phone: 10-27-2021 Cognitive function Level Of Cons ciousness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 [phone] 03/23/22 Alvaro Mcmillan MD [address] [place] [address] [address] [place] [address] Surgeon Urology 09/11/23 Manager Financial Planning Relationship Specialty Start Date End Date SoniyaToroDO [address] [place] [phone] PCP - General 03/23/22 Soniya Toro FlemingDO [address] [place] [address] 03/23/22 Alvaro Mcmillan MD [address] [place] [address] Surgeon Urology 09/11/23 Team Status: Inactive Member Role Status Dates [facility] Primary Care Provider Active Dr. Mariel Gee MD Emergency Provider Active Manager Financial Planning Relationship Specialty Start Date End Date PopToro vaughnDO [address] [place] [address] PCP - General 03/23/22 Soniya Toro FlemingDO [address] [place] [address] 03/23/22 Alvaro Mcmillan MD [address] [place] [address] Surgeon Urology 09/11/23 Reason for Visit (unrecogniz ed section and content) Specialty Diagnoses / Procedures Referred By Erna t Referred To Contact Cardiology Diagnoses Swelling Pain in central right lower extremity Procedures Vascular US lower extremity venous duplex right Robina Gregorio, DO [address] [place] [address] [place] [address] Referral ID Status Reason Start Date Expiration Date V isits Requested Visits Authorized [id number] Pending Review 02/22/2023 08/21/2023 1 1 Reason Comments New Patient bilateral inguinal lymph nodes Specialty Diagnoses / Procedures Referred By Erna hernandez Referred To Contact Radiology Diagnoses Inguinal lymphadenopathy Procedures CT pelvis w IV contrast Alvaro Mcmillan MD [address] [place] [address] Referral ID Status Reason Start Date Expiration Date Visits Re quested Visits Authorized [id number] Closed 09/26/2023 09/25/2024 1 1 Reason Comments Follow-up Inguinal Lymphadenop athy and review Ct Scan FOR RECORDS PERTAINING TO PATIENTS WHO ARE OR HAVE BEEN ENROLLED IN A CHEMICAL DEPENDENCY/SUBSTANCEABUSE PROGRAM, SOME INFORMATION MAY BE OMITTED. This clinical summary was aggregated from multiple sources. Caution should be exercised in using it in the provision of clinical care. This summary normalizes information from multiple sources, and as a consequence, information in this document may materially change the coding, format and clinical context of patient data. In addition, data may be omitted in some cases. CLINICAL DECISIONS SHOULD BE BASED ON THE PRIMARY CLINICAL RECORDS. [facility]. provides no warranty or guarantee of the accuracy or completeness of information in this document.
[2025-03-18 08:11] LABS: Hematocrit 37.4 % (40-54); Hemoglobin 12.5 g/dL (13.0-16.5); Mean Corp Hgb Conc 33.4 g/dL (32-36); Mean Corpuscular Volume 88.0 fL (80-94); Mean Platelet Vol. 9.2 fl (6.2-12.0); Platelet Count 255 K/mm3 (150-450); RBC Distribution Width CV 13.4 % (11.6-14.6); RBC Distribution Width SD 43.5 fl (35.1-43.9); Red Blood Count 4.25 M/mm3 (4.6-6.2); White Blood Count 9.3 K/mm3 (4.4-11.0)
[2025-03-18 08:58] LABS: Anion Gap 10 (5-15); BUN 22 mg/dL (4-19); BUN/Creat Ratio 24.0 RATIO (10-20); Calcium,Total 8.4 mg/dL (7.6-11.0); Carbon Dioxide 23.3 mmol/L (21.0-32.0); Chloride 101 mmol/L (98-108); Glucose 90 mg/dL (70-99); Potassium 4.5 mmol/L (3.3-5.1)
== END ==
LOC: OLS.ACH 05:00
PROVIDERS: PCP Internal Medicine; Visit Provider Internal Medicine
DX: I89.0 Lymphedema, not elsewhere classified (principal); D50.9 Iron deficiency anemia, unspecified; E78.5 Hyperlipidemia, unspecified
CPT/HCPCS: 36415; 80048; 85027